=== PATIENT | female | born 1960 | race Caucasian/White ===

== ENCOUNTER 2017-04-29 03:13 | Emergency (ER) | payer MEDICAID, SELFPAY ==
[2017-04-29 03:14] VITALS: BP 137/78; PULSE 79; RESP 12; TEMP 36.8; O2SAT 100; BMI 21.1
--- NOTE | 2017-04-29 03:27 | RAD_ITS ---
STUDY: X-RAY - CERVICAL SPINE REASON FOR EXAM: Female, 56 years old. Fall. Neck pain TECHNIQUE: 4 view(s) of the cervical spine were obtained. COMPARISON: None FINDINGS: Normal anterior atlantoaxial articulation. Normal odontoid process. Normal cervical lordosis. There is multi-level endplate spondylosis. There is multi-level degenerative disc disease with multilevel disc space narrowing. The soft tissue structures are unremarkable. RAD/Cerv Spine 2 or 3 Views IMPRESSION: There is multi-level endplate spondylosis. There is multi-level degenerative disc disease with multilevel disc space narrowing. Electronically Signed: Maxwell Lucero MD at 4:04 EST Tel , Service support ,
[2017-04-29] MEDS: Acetaminophen 325 MG Tablet 650 MG PO (03:43)
--- NOTE | 2017-04-29 04:09 | ED.VISSUMM ---
- ER Visit Summary Date of Service: 04/29/17 Chief Complaint: [] Head and neck injury History of Present Illness: The patient is a 56 F she stated she sleepwalks and was sleepwalking this evening and fell onto the closet door. She fell onto the ground. She struck her head on the door and of the ground. She has some soreness in her sides of her neck. No home treatment. Brought in by paramedics. No headache. Current severity mild. Physical Examination: [] Vital signs reviewed General: Well-nourished well-developed Head: Normocephalic atraumatic. Right forehead with a superficial abrasion. Hematoma or contusion Eyes: Pupils equal round and reactive to light extraocular movements intact ENT: TMs clear no hemotympanum no trauma Neck: No midline tenderness. Positive paraspinal tenderness. C-collared Cardiovascular: Regular rate rhythm no murmurs normal S1-S2 Respiratory: No distress clear to auscultation bilaterally chest nontender Abdomen: Soft nontender nondistended normal bowel sounds no masses Back: Nontender no CVA tenderness Extremities: Nontender active range of motion ?4 extremities no trauma Skin: Normal color no trauma Neuro alert oriented cranial nerves II through XII intact normal strength sensation reflexes Test Results: [] Emergency Department Course and Treatment: [] X-ray cervical shows nothing acute. She given Tylenol. Her abrasion this is superficial. No sutures needed. Patient will follow-up as an outpatient continue NSAIDs Treatment Plan: [] Disposition: [] Impression: [] Neck strain Head abrasion This note was generated with [employer] dictation software. It may contain incorrect words, spelling, and punctuation that were not noted in review of the chart prior to signing ED Disposition - Plan for ED Patient: Chief Complaint: Fall Referrals: Keven Willams MD [Primary Care Provider] -
--- NOTE | 2017-04-29 04:11 | ED.DEP ---
ED Disposition - Plan for ED Patient: Disposition: Home or Assisted Living Chief Complaint: Fall Instructions: ED Sprain Strain Neck Referrals: Keven Willams MD [Primary Care Provider] -
[2017-04-29 04:16] VITALS: BP 138/81; PULSE 76; O2SAT 98
== END 2017-04-29 04:27 | disposition home or self-care (01) ==
PROVIDERS: Emergency Provider Emergency Medicine; Family Provider Family Medicine; PCP Family Medicine
DX: S16.1XXA Strain of muscle, fascia and tendon at neck level, initial encounter (principal); S00.81XA Abrasion of other part of head, initial encounter; K21.9 Gastro-esophageal reflux disease without esophagitis; F41.9 Anxiety disorder, unspecified; F32.9 Major depressive disorder, single episode, unspecified; Z79.899 Other long term (current) drug therapy; W18.30XA Fall on same level, unspecified, initial encounter; Y93.01 Activity, walking, marching and hiking; Y92.009 Unspecified place in unspecified non-institutional (private) residence as the place of occurrence of the external cause; Y99.8 Other external cause status
CPT/HCPCS: 72040; 99284

== ENCOUNTER 2017-06-07 07:52 | Emergency (ER) | payer MEDICAID, SELFPAY ==
[2017-06-07 07:52] VITALS: BP 130/88; PULSE 78; RESP 18; TEMP 36.6; O2SAT 100; BMI 20.5
--- NOTE | 2017-06-07 08:07 | CT_ITS ---
STUDY: CT ABDOMEN AND PELVIS WITHOUT CONTRAST REASON FOR EXAM: Female, 56 years old. Left lower quadrant abdominal pain with nausea vomiting and diarrhea. RADIATION DOSAGE (If Supplied By Facility): CTDIvol = ( 6.22 ) mGy, DLP = ( 312.43 ) mGycm TECHNIQUE: Transaxial images were obtained from the dome of the diaphragm to the symphysis pubis without oral contrast, and without intravenous contrast. Sagittal and coronal images were reconstructed. Individualized dose optimization techniques were used for this CT. COMPARISON: Comparison is made with prior examination dated July 03, 2016. FINDINGS: Mild degree of the nodular pleural thickening at the lung bases. The visualized portions of the heart are within normal limits. Normal liver. There are surgical clips in the gallbladder fossa consistent with a prior cholecystectomy. Borderline splenomegaly. Normal pancreas. Normal bilateral adrenal glands. Mild degree of right hydronephrosis and right hydroureter. No obstructive calculus is seen at this time. Moderate atrophy of the left kidney. Moderate sized hiatal hernia. Normal small intestine. There are multiple colonic diverticula consistent with diverticulosis. The appendix is visualized and appears normal. There is scattered atherosclerotic calcification of the abdominal aorta, without a demonstrated aneurysm. Normal inferior vena cava. Normal retroperitoneum. Normal urinary bladder. There is a small umbilical hernia containing fat. Normal osseous structures. CT/Abdomen/Pelvis without Cont IMPRESSION: Moderate sized hiatal hernia. Atrophy of the left kidney. Right hydronephrosis and hydroureter without an obstructive calculus seen. Sigmoid diverticulosis. Electronically Signed: Gerhard Riggs MD at 9:31 EDT Tel [phone], Service support ,
--- NOTE | 2017-06-07 08:08 | ED.VISSUMM ---
- ER Visit Summary Date of Service: 06/07/17 Chief Complaint: Abdominal pain History of Present Illness: The patient is a [address] Willams. She reports that she has left lower quadrant pain that began yesterday. It is a sharp, cramping pain that is 10 out of 10 in severity. States it is worsened by nothing and minimally relieved by a position. She is vomited twice. No blood in her emesis. She has had 3 episodes of diarrhea. No blood in her stools or black tarry stools. She reports this is similar to when she has had diverticulitis in the past. Patient denies sick contacts. Has not been camping out of the country. No possible bad food exposure. Does drink well water, but others at home due as well and they are not ill. No recent antibiotic use. Physical Examination: Vitals: Stable. Afebrile. General: Well-nourished and well-developed. Head: Normocephalic atraumatic. Neck: Supple, no lymphadenopathy. No JVD. Nontender. Cardiovascular: Regular rate and rhythm. No murmurs. Respiratory: No respiratory distress. Clear to auscultation bilaterally. Abdominal: Soft, moderate tenderness to palpation of the left lower quadrant, nondistended, normal bowel sounds. No guarding, rebound, or peritoneal signs. Back: Nontender. No CVA tenderness. Extremities: Nontender, no edema. Skin: Normal color, no rash. Neurologic: Alert and oriented ?3. Cranial nerves II through XII are intact. Normal strength and sensation. Psych: Normal affect. Test Results: CBC is remarkable for an H&H of 11.0 and 35.5. Chem-7 is more for chloride of 112, BUN of 19, creatinine 1.13. CT flank shows diverticulosis without diverticulitis. There is mild degree right hydro-nephrosis/hydroureter without calculus. Moderate atrophy of the left kidney. Normal appendix. Urine shows 10-25 white blood cells and 1+ bacteria. Emergency Department Course and Treatment: Patient had an IV placed. She was given morphine and Zofran IV. She is resting comfortably. She was given Macrobid p.o. Treatment Plan: Patient will be discharged with Cinthya bed, [place]illian, naproxen, and Zofran. Instructed to follow-up with Dr. Willams in 1-2 days if not improving. Return to the emergency department for any worsening symptoms. Disposition: To home in improved and stable condition. Impression: 1. UTI. This note was generated with [employer] dictation software. It may contain incorrect words, spelling, and punctuation that were not noted in review of the chart prior to signing ED Disposition - Plan for ED Patient: Chief Complaint: Abd Pain Instructions: ED Abdominal Pain Unkn Cause Prescriptions: Hydrocodone Bitart/Apap 5-325 [[place] 5/325] 1 - 2 tablet PO Q4H PRN PRN 3 Days #12 tablet PRN Reason: Pain Ondansetron [Zofran Odt] 4 mg PO Q8H PRN PRN #10 tablet PRN Reason: Nausea Nitrofurantoin Macrocrystals [Macrobid] 100 mg PO Q12 #14 capsule Naproxen [Naprosyn] 500 mg PO BID #20 tablet Referrals: Keven Willams MD [Primary Care Provider] - 1-2 Days if not improving
--- NOTE | 2017-06-07 08:25 | ED.DCSUM_ITS ---
- ER Visit Summary Date of Service: 06/07/17 Chief Complaint: Abdominal pain History of Present Illness: The patient is a [address] Willams. She reports that she has left lower quadrant pain that began yesterday. It is a sharp, cramping pain that is 10 out of 10 in severity. States it is worsened by nothing and minimally relieved by a position. She is vomited twice. No blood in her emesis. She has had 3 episodes of diarrhea. No blood in her stools or black tarry stools. She reports this is similar to when she has had diverticulitis in the past. Patient denies sick contacts. Has not been camping out of the country. No possible bad food exposure. Does drink well water, but others at home due as well and they are not ill. No recent antibiotic use. Physical Examination: Vitals: Stable. Afebrile. General: Well-nourished and well-developed. Head: Normocephalic atraumatic. Neck: Supple, no lymphadenopathy. No JVD. Nontender. Cardiovascular: Regular rate and rhythm. No murmurs. Respiratory: No respiratory distress. Clear to auscultation bilaterally. Abdominal: Soft, moderate tenderness to palpation of the left lower quadrant, nondistended, normal bowel sounds. No guarding, rebound, or peritoneal signs. Back: Nontender. No CVA tenderness. Extremities: Nontender, no edema. Skin: Normal color, no rash. Neurologic: Alert and oriented ?3. Cranial nerves II through XII are intact. Normal strength and sensation. Psych: Normal affect. Test Results: CBC is remarkable for an H&H of 11.0 and 35.5. Chem-7 is more for chloride of 112, BUN of 19, creatinine 1.13. CT flank shows diverticulosis without diverticulitis. There is mild degree right hydro-nephrosis/hydroureter without calculus. Moderate atrophy of the left kidney. Normal appendix. Urine shows 10-25 white blood cells and 1+ bacteria. Emergency Department Course and Treatment: Patient had an IV placed. She was given morphine and Zofran IV. She is resting comfortably. She was given Macrobid p.o. Treatment Plan: Patient will be discharged with Cinthya bed, [place], naproxen, and Zofran. Instructed to follow-up with Dr. Willams in 1-2 days if not improving. Return to the emergency department for any worsening symptoms. Disposition: To home in improved and stable condition. Impression: 1. UTI. This note was generated with [employer] dictation software. It may contain incorrect words, spelling, and punctuation that were not noted in review of the chart prior to signing ED Disposition - Plan for ED Patient: Chief Complaint: Abd Pain Instructions: ED Abdominal Pain Unkn Cause Prescriptions: Hydrocodone Bitart/Apap 5-325 [[place] 5/325] 1 - 2 tablet PO Q4H PRN PRN 3 Days # 12 tablet PRN Reason: Pain Ondansetron [Zofran Odt] 4 mg PO Q8H PRN PRN #10 tablet PRN Reason: Nausea Nitrofurantoin Macrocrystals [Macrobid] 100 mg PO Q12 #14 capsule Naproxen [Naprosyn] 500 mg PO BID #20 tablet Referrals: Keven Willams MD [Primary Care Provider] - 1-2 Days if not improving
[2017-06-07] MEDS: 0.9% Normal Saline 1,000 ML 1000 ML IV (08:36)
[2017-06-07] MEDS: Ondansetron 4 MG/2 ML Vial IV (08:36)
[2017-06-07 08:38] LABS: Absolute Lymphocyte Count 2.15 X10^3/ul (0.83-4.51); Absolute Neutrophil Count 2.9 X10^3/uL (2.0-7.7); Basophil# 0.03 X10^3/uL; Basophil% 0.5 % (0-1); Eosinophil# 0.24 X10^3/uL; Eosinophils% 4.1 % (0-5); Hematocrit 35.5 % (37-47); Lymphocyte # 2.15 X10^3/ul (4.0); Lymphocyte % 36.9 % (19-41); Mean Corpuscular Hgb 24.5 pg (27.0-32.0); Mean Corpuscular Volume 79.1 fL (81-99); Mean Platelet Vol. 9.5 fl (6.2-12.0); Monocyte# 0.47 X10^3/uL; Monocyte% 8.1 % (0-10); Neutrophil # 2.93 X10^3/uL (2.7-7.7); Neutrophil % 50.4 % (47-70); Platelet Count 178 K/mm3 (150-450); RBC Distribution Width CV 14.4 % (11.6-14.6); RBC Distribution Width SD 41.8 fl (35.1-43.9); Red Blood Count 4.49 M/mm3 (4.2-5.4); White Blood Count 5.8 K/mm3 (4.4-11.0)
[2017-06-07 08:39] LABS: POSITIVE COUNT NO; POSITIVE DIFFERENTIAL NO; POSITIVE MORPHOLOGY NO
[2017-06-07 08:51] LABS: Anion Gap 6 (5-15); BUN 19 mg/dL (7-18); BUN/Creat Ratio 16.8 RATIO (10-20); Calcium,Total 8.6 mg/dL (8.5-10.1); Chloride 112 mmol/L (98-107); Creatinine, Serum 1.13 mg/dL (0.55-1.02); EST Glomerular Filtration Rate 53 mL/min (>60); Est Glom Filt Rate - Afr Amer 64 mL/min (>60); Estimated Creatinine Clearance 49.95 ml/min; Glucose 80 mg/dL (74-106); Sodium Level 142 mmol/L (136-145)
[2017-06-07 10:19] LABS: Mucous, Urine 0 SEEN /hpf (<or=2+); Red Blood Cells-Urine 0 SEEN /hpf (0-5)
[2017-06-07 10:25] LABS: Color, Urine Yellow (Yellow); Glucose, Dipstick Normal (Normal); Ketone-Dipstick Negative (Negative); Leukocyte Esterase-Dipstick 100 /ul (Negative); Nitrite-Dipstick Negative (Negative); Occult Blood-Urine Negative /ul (Negative); Protein-Dipstick Negative (Negative); Urine Bilirubin Dipstick Negative (Negative); Urine Clarity Sl. Cloudy (Clear); Urine Urobilinogen Normal (Normal); Urine pH 6.5 (5.0 - 8.0)
[2017-06-07 10:31] LABS: Bacteria 1+ /hpf (None Seen); Squamous Epithelial Cells - UA 0-5 SEEN /hpf (5-10); White Blood Cells 10-25 SEEN /hpf (0-5)
[2017-06-07] MEDS: 0.9% Normal Saline 1,000 ML 999 ML IV (10:38)
[2017-06-07 10:39] VITALS: BP 109/74; PULSE 73; RESP 14; O2SAT 96
[2017-06-07 10:40] VITALS: BP 105/75; BP 109/74; BP 111/78; PULSE 65; PULSE 66; PULSE 67
[2017-06-07] MEDS: Nitrofurantoin Macrocrystals 100 MG Capsule PO (10:53)
[2017-06-07 11:41] VITALS: BP 119/79; PULSE 78; RESP 14; TEMP 36.6; O2SAT 100
== END 2017-06-07 11:46 | disposition home or self-care (01) ==
LOC: ED 08:19
PROVIDERS: Emergency Provider Emergency Medicine; Family Provider Family Medicine; PCP Family Medicine
DX: N39.0 Urinary tract infection, site not specified (principal); K57.90 Diverticulosis of intestine, part unspecified, without perforation or abscess without bleeding; N13.30 Unspecified hydronephrosis; N13.4 Hydroureter; N26.1 Atrophy of kidney (terminal); Z87.442 Personal history of urinary calculi; Z79.899 Other long term (current) drug therapy
CPT/HCPCS: 74176; 80048; 81001; 85025; 96361; 96374; 96375; 99284; J7030; A4216; J2405

== ENCOUNTER 2017-07-30 20:07 | Emergency (ER) | payer MEDICAID, SELFPAY ==
[2017-07-30 20:08] VITALS: BP 128/76; PULSE 69; RESP 15; TEMP 36.6; BMI 20.5
--- NOTE | 2017-07-30 20:15 | RAD_ITS ---
STUDY: X-RAY - LEFT WRIST REASON FOR EXAM: Female, 56 years old. Falling injury of the left wrist. TECHNIQUE: 3 view(s) of the wrist were obtained. COMPARISON: None. FINDINGS: Demineralized osseous structures without a fracture of the distal radius or ulna. Normal radiocarpal articulation. Normal distal radioulnar articulation. Normal carpal bones. Normal carpal articulations. Normal carpometacarpal articulation of the thumb. Normal second through fifth carpometacarpal articulations. Normal visualized metacarpal bones. The soft tissue structures are unremarkable. RAD/Wrist min 3 Views IMPRESSION: Negative for acute fracture or dislocation. Electronically Signed: Haylie Peoples MD at 20:34 EDT , Service support ,
[2017-07-30 20:45] VITALS: O2SAT 97
--- NOTE | 2017-07-30 21:34 | CT_ITS ---
STUDY: CT BRAIN WITHOUT CONTRAST REASON FOR EXAM: Female, 56 years old. Falling injury of the head. Slipped and hit the back of the head. RADIATION DOSAGE (If Supplied By Facility): CTDIvol = ( 44.99 ) mGy, DLP = ( 748.30 ) mGycm TECHNIQUE: Transaxial CT imaging of the brain was performed without administration of intravenous contrast material. Individualized dose optimization techniques were used for this CT. COMPARISON: Prior head CT exam of April 07, 2009 FINDINGS: Normal soft tissue structures. Normal calvarium. Normal size ventricles and extra-axial spaces for the patient's age. There are areas of decreased attenuation within the white matter tracts of the supratentorial brain, consistent with microvascular disease changes. Normal basal ganglia and thalami. Normal brainstem. Normal cerebellum. There is no intracranial hemorrhage. There are no findings of an acute ischemic infarction. Normal visualized paranasal sinuses. CT/Brain/Head without Contrast IMPRESSION: No acute intracranial findings or changes. Negative for hemorrhage, hematoma or mass density. Chronic small vessel ischemic changes somewhat increased from the prior exam. Negative for skull fracture. Electronically Signed: Haylie Peoples MD at 22:16 EDT , Service support ,
--- NOTE | 2017-07-30 21:34 | CT_ITS ---
STUDY: CT CERVICAL SPINE WITHOUT CONTRAST REASON FOR EXAM: Female, 56 years old. Neck pain after falling injury. RADIATION DOSAGE (If Supplied By Facility): CTDIvol = ( 16.16 ) mGy, DLP = ( 338.04 ) mGycm TECHNIQUE: High resolution transaxial imaging was performed without contrast material. Sagittal and coronal images were reconstructed. Individualized dose optimization techniques were used for this CT. COMPARISON: Prior cervical spine films of April 29, 2017 FINDINGS: Normal craniovertebral junction. Normal anterior atlantoaxial articulation. Normal odontoid process. Normal cervical lordosis. Normal vertebral bodies and posterior osseous elements. C2-3: Normal endplates. Normal disc height and morphology. Normal central canal and intervertebral neuroforamina. C3-4: Minimal degenerative disc and joint changes without central stenosis or substantial foraminal narrowing. C4-5: Degenerative disc narrowing with mild spondylitic endplate changes and uncovertebral hypertrophy. Normal bilateral facet articulations. Negative for central stenosis. Negative for substantial foraminal narrowing. C5-6: Disc narrowing and mild uncovertebral arthrosis. Normal facet articulations. Negative for central stenosis. Bilateral moderate foraminal narrowing. C6-7: Mild degenerative disc and joint changes without central stenosis or substantial foraminal narrowing. C7-T1: Normal endplates. Normal disc height and morphology. Normal central canal and intervertebral neuroforamina. Normal visualized soft tissue structures. CT/Spine Cervical without Contras IMPRESSION: Normal alignment of the cervical spine without a fracture deformity. Degenerative disc and joint changes as stated above. Electronically Signed: Haylie Peoples MD at 22:14 EDT , Service support ,
--- NOTE | 2017-07-30 21:45 | RAD_ITS ---
STUDY: X-RAY - PELVIS REASON FOR EXAM: Female, 56 years old. Pain after falling. TECHNIQUE: One view of the pelvis was obtained. COMPARISON: None. FINDINGS: There is a non-specific bowel gas pattern. Normal visualized soft tissue structures. Normal bilateral iliac wings, sacroiliac joints and visualized sacrum. Normal visualized bilateral superior and inferior pubic rami. Normal pubic symphysis. Normal ischial tuberosities. Normal visualized right femoral head. Normal right acetabulum. Normal right hip joint. Normal visualized left femoral head. Normal left acetabulum. Normal left hip joint. RAD/Pelvis 1 or 2 Views IMPRESSION: Normal x-ray examination of the pelvis. Electronically Signed: Haylie Peoples MD at 22:47 EDT , Service support ,
--- NOTE | 2017-07-30 22:31 | ED.VISSUMM ---
- ER Visit Summary Date of Service: 07/30/17 Chief Complaint: [Fall] History of Present Illness: The patient is a 56 F [presents to the emergency department after sustaining a fall today. Patient was on a step stool when she fell landing on her left wrist. Patient did hit her head but no loss of consciousness. Patient complains of pain in her neck as well as her left groin. Patient denies any chest pain or abdominal pain. Patient has been ambulatory since her fall. Patient is not on any blood thinners.] Physical Examination: [HEENT-PERRLA, EOMI. Cranial nerves II through XII grossly intact. TMs clear. Mucous membranes moist. No adenopathy. Patient has diffuse tenderness palpation over the C-spine and cervical paraspinal musculature. No bony step-offs noted. Cardiovascular-regular rate and rhythm without murmur or ectopy Lungs-clear to auscultation, chest wall stable without crepitus or subcu emphysema Abdomen-normoactive bowel sounds, soft, nontender, no rebound or rigidity, no peritoneal signs. Back exam-no tenderness over the thoracic or lumbar spine. Extremities-intact ?4, normal range of motion, normal pulses. Left wrist-patient has some superficial abrasions noted to the dorsum of the left wrist. There is no deformity to the wrist or significant soft tissue swelling noted. She is nervously intact distally. Patient has some pain with range of motion flexion extension of the wrist. Patient also has tenderness over the left groin. Negative straight leg raising no pain with logrolling of the left hip. There is no shortening or external rotation of the left lower extremity. Test Results: [CT scan of the brain without contrast showed nothing acute. CT scan of the cervical spine showed no fractures and only degenerative changes. X-rays of the left wrist show no fractures and x-rays of the pelvis showed no fractures Emergency Department Course and Treatment: [Patient will be given a left wrist splint] Treatment Plan: [Patient given a prescription for 12 [place] for pain and advised to follow-up with her primary care physician within next 5-7 days] Disposition: [Discharged home in stable condition] Impression: [Mechanical fall Closed head injury Cervical strain Left wrist sprain Left groin strain] This note was generated with [employer] software. It may contain incorrect words, spelling, and punctuation that were not noted in review of the chart prior to signing ED Disposition - Plan for ED Patient: Chief Complaint: Fall Referrals: Carol Gonzalez PA [Primary Care Provider] -
--- NOTE | 2017-07-30 22:34 | ED.DCSUM_ITS ---
- ER Visit Summary Date of Service: 07/30/17 Chief Complaint: [Fall] History of Present Illness: The patient is a 56 F [presents to the emergency department after sustaining a fall today. Patient was on a step stool when she fell landing on her left wrist. Patient did hit her head but no loss of consciousness. Patient complains of pain in her neck as well as her left groin. Patient denies any chest pain or abdominal pain. Patient has been ambulatory since her fall. Patient is not on any blood thinners.] Physical Examination: [HEENT-PERRLA, EOMI. Cranial nerves II through XII grossly intact. TMs clear. Mucous membranes moist. No adenopathy. Patient has diffuse tenderness palpation over the C-spine and cervical paraspinal musculature. No bony step-offs noted. Cardiovascular-regular rate and rhythm without murmur or ectopy Lungs-clear to auscultation, chest wall stable without crepitus or subcu emphysema Abdomen-normoactive bowel sounds, soft, nontender, no rebound or rigidity, no peritoneal signs. Back exam-no tenderness over the thoracic or lumbar spine. Extremities-intact ?4, normal range of motion, normal pulses. Left wrist- patient has some superficial abrasions noted to the dorsum of the left wrist. There is no deformity to the wrist or significant soft tissue swelling noted. She is nervously intact distally. Patient has some pain with range of motion flexion extension of the wrist. Patient also has tenderness over the left groin. Negative straight leg raising no pain with logrolling of the left hip. There is no shortening or external rotation of the left lower extremity. Test Results: [CT scan of the brain without contrast showed nothing acute. CT scan of the cervical spine showed no fractures and only degenerative changes. X -rays of the left wrist show no fractures and x-rays of the pelvis showed no fractures Emergency Department Course and Treatment: [Patient will be given a left wrist splint] Treatment Plan: [Patient given a prescription for 12 [place] for pain and advised to follow-up with her primary care physician within next 5-7 days] Disposition: [Discharged home in stable condition] Impression: [Mechanical fall Closed head injury Cervical strain Left wrist sprain Left groin strain] This note was generated with [employer] software. It may contain incorrect words, spelling, and punctuation that were not noted in review of the chart prior to signing ED Disposition - Plan for ED Patient: Chief Complaint: Fall Referrals: Carol Gonzalez PA [Primary Care Provider] -
--- NOTE | 2017-07-30 22:34 | ED.DEP ---
ED Disposition - Plan for ED Patient: Chief Complaint: Fall Instructions: ED Mechanical Fall, ED Head Injury Closed, ED Sprain Strain Neck, ED Sprain Wrist, ED Strain Groin Prescriptions: Hydrocodone/Acetaminophen [[place] 5-325 Tablet] 1 - 2 ea PO 4X/DAY PRN PRN 3 Days #12 tab PRN Reason: Pain Referrals: Carol Gonzalez PA [Primary Care Provider] - 5-7 Days
[2017-07-30] MEDS: HYDROcodone Bitartrate/Apap 5/325 Tablet PO ×2 (22:48)
[2017-07-30 22:57] VITALS: BP 142/82; PULSE 61; RESP 18; O2SAT 99
== END 2017-07-30 22:58 | disposition home or self-care (01) ==
PROVIDERS: Emergency Provider Emergency Medicine; Family Provider Physician Assistant; PCP Physician Assistant
DX: S16.1XXA Strain of muscle, fascia and tendon at neck level, initial encounter (principal); S39.011A Strain of muscle, fascia and tendon of abdomen, initial encounter; S63.502A Unspecified sprain of left wrist, initial encounter; S09.90XA Unspecified injury of head, initial encounter; K21.9 Gastro-esophageal reflux disease without esophagitis; Z79.899 Other long term (current) drug therapy; W07.XXXA Fall from chair, initial encounter; Y93.9 Activity, unspecified; Y92.009 Unspecified place in unspecified non-institutional (private) residence as the place of occurrence of the external cause; Y99.8 Other external cause status
CPT/HCPCS: 70450; 72125; 72170; 73110; 99283

== ENCOUNTER 2017-09-06 21:02 | Emergency (ER) | payer MEDICAID, SELFPAY ==
--- NOTE | 2017-09-06 21:02 | DT_ITS ---
This patient was seen during an EMR downtime August 30, 2017 - September 06, 2017. This patient may have a combination of paper and electronic documentation or all paper documentation. All documentation is viewable within the e-chart portion of [employer] for each patient visit.
[2017-09-06 21:03] VITALS: BP 104/74; PULSE 95; RESP 16; TEMP 36.4; O2SAT 98; BMI 21.6
--- NOTE | 2017-09-06 21:46 | CT_ITS ---
STUDY: CT ABDOMEN AND PELVIS WITHOUT CONTRAST REASON FOR EXAM: Female, 56 years old. Left lower quadrant pain RADIATION DOSAGE (If Supplied By Facility): CTDIvol = ( 6.25 ) mGy, DLP = ( 281.22 ) mGycm TECHNIQUE: Transaxial images were obtained from the dome of the diaphragm to the symphysis pubis without oral contrast, and without intravenous contrast. Sagittal and coronal images were reconstructed. Individualized dose optimization techniques were used for this CT. COMPARISON: None. FINDINGS: Bibasilar atelectasis. The visualized portions of the heart are within normal limits. Normal liver. Gallbladder is surgically absent. Mild prominence of the central intrahepatic biliary ducts, consistent with postcholecystectomy change. Normal spleen. Normal pancreas. Normal bilateral adrenal glands. There is mild right-sided hydronephrosis and hydroureter without obstructing calculus, unchanged from prior imaging. Left kidney is atrophic. Left ureter is normal. There is a moderate-sized hiatal hernia. The stomach is otherwise unremarkable. Normal small intestine. Mild distal descending colonic diverticulosis with no focal inflammation. The appendix is visualized and appears normal. Normal abdominal aorta. Normal inferior vena cava. Normal retroperitoneum. Normal urinary bladder. Uterus and bilateral adnexa are unremarkable. Normal abdominal wall. Normal osseous structures. CT/Abdomen/Pel W ORAL Cont Only IMPRESSION: 1. No evidence of an acute intra-abdominal abnormality. 2. Mild distal descending colonic diverticulosis with no CT evidence of acute diverticulitis. 3. Mild chronic right-sided hydroureter nephrosis without obstructing calculus. 4. Left renal atrophy. 5. Moderate-sized hiatal hernia. Electronically Signed: Tejas Johansen MD at 0:30 EDT Tel , Service support ,
[2017-09-06] MEDS: Morphine 2 MG/ML Syringe IV (21:52)
[2017-09-06] MEDS: Ondansetron 4 MG/2 ML Vial IV (21:53)
[2017-09-06] MEDS: 0.9% Normal Saline 1,000 ML 150 ML IV (21:53)
[2017-09-06 22:12] LABS: Mucous, Urine 0 SEEN /hpf (<or=2+); Red Blood Cells-Urine 0 SEEN /hpf (0-5)
[2017-09-06 22:16] LABS: Absolute Lymphocyte Count 1.47 X10^3/ul (0.83-4.51); Absolute Neutrophil Count 3.2 X10^3/uL (2.0-7.7); Basophil# 0.03 X10^3/uL; Basophil% 0.6 % (0-1); Eosinophil# 0.04 X10^3/uL; Eosinophils% 0.8 % (0-5); Hemoglobin 10.9 g/dl (12.0-15.0); Lymphocyte # 1.47 X10^3/ul (4.0); Lymphocyte % 28.7 % (19-41); Mean Corp Hgb Conc 31.1 g/gl (32-36); Mean Corpuscular Hgb 24.3 pg (27.0-32.0); Mean Platelet Vol. 10.3 fl (6.2-12.0); Monocyte# 0.43 X10^3/uL; Monocyte% 8.4 % (0-10); Neutrophil # 3.15 X10^3/uL (2.7-7.7); Neutrophil % 61.5 % (47-70); Platelet Count 215 K/mm3 (150-450); RBC Distribution Width CV 13.7 % (11.6-14.6); RBC Distribution Width SD 38.7 fl (35.1-43.9); Red Blood Count 4.49 M/mm3 (4.2-5.4); White Blood Count 5.1 K/mm3 (4.4-11.0)
[2017-09-06 22:18] LABS: POSITIVE COUNT NO; POSITIVE DIFFERENTIAL NO; POSITIVE MORPHOLOGY NO
[2017-09-06 22:25] LABS: Color, Urine Yellow (Yellow); Glucose, Dipstick Normal (Normal); Ketone-Dipstick Negative (Negative); Leukocyte Esterase-Dipstick 500 /ul (Negative); Nitrite-Dipstick Negative (Negative); Occult Blood-Urine Negative /ul (Negative); Protein-Dipstick Negative (Negative); Specific Gravity, Urine 1.015 (1.002-1.030); Urine Bilirubin Dipstick Negative (Negative); Urine Clarity Cloudy (Clear); Urine Urobilinogen Normal (Normal)
[2017-09-06 22:39] LABS: Anion Gap 7 (5-15); BUN 19 mg/dL (7-18); Calcium,Total 8.3 mg/dL (8.5-10.1); Chloride 111 mmol/L (98-107); Creatinine, Serum 1.27 mg/dL (0.55-1.02); EST Glomerular Filtration Rate 46 mL/min (>60); Est Glom Filt Rate - Afr Amer 56 mL/min (>60); Glucose 85 mg/dL (74-106); Potassium 4.1 mmol/L (3.5-5.1); Sodium Level 144 mmol/L (136-145)
[2017-09-06 22:44] LABS: Squamous Epithelial Cells - UA 0-5 SEEN /hpf (5-10)
[2017-09-06 22:45] LABS: Bacteria 4+ /hpf (None Seen); Transitional Epithelial - Ur 0-5 SEEN /hpf (0-5); White Blood Cells 0-5 SEEN /hpf (0-5)
--- NOTE | 2017-09-06 23:31 | ED.VISSUMM ---
- ER Visit Summary Date of Service: 09/06/17 Chief Complaint: Left lower quadrant abdominal pain History of Present Illness: The patient is a 56 F reports left lower quadrant abdominal pain that started yesterday. Is been waxing and waning. She describes an aching sensation. She has had some nausea but no vomiting. She feels constipated. Last bowel movement was either yesterday or the day prior. She states she normally goes every day. She has had some chills but no fever. Past history significant for diverticulitis, kidney failure, anxiety, and depression. She has had prior cholecystectomy. Physical Examination: Vital signs are unremarkable. Patient is afebrile. Head and neck examination is unremarkable. Heart is regular rate and rhythm. Lung sounds are clear. Abdomen is soft with tenderness in the left lower quadrant. No guarding or rebound. Hypoactive bowel sounds are present. Back examination reveals no CVA tenderness. Test Results: CBC was normal white count. Hemoglobin is 10.9. Chemistry studies reveal BUN of 19 and a creatinine 1.27. Urinalysis shows 4+ bacteria but 0-5 white cells and 0-[address] scan of the abdomen pelvis with p.o. contrast reveals no evidence of acute abnormality. There is a mild descending distal colonic diverticulosis with no evidence of diverticulitis. There is a moderate sized hiatal hernia. Emergency Department Course and Treatment: Patient is given a small dose of morphine along with Zofran and IV fluids. On repeat evaluation patient is resting comfortably. She has no urinary symptoms. Her urine will be sent for culture but we will not treat with antibiotics at this time. Patient will continue to monitor her symptoms. She is encouraged to return if symptoms worsen or she has any other concerns. Treatment Plan: [] Disposition: Discharge Impression: Left lower quadrant pain Bacteriuria This note was generated with [employer] dictation software. It may contain incorrect words, spelling, and punctuation that were not noted in review of the chart prior to signing ED Disposition - Plan for ED Patient: Chief Complaint: Abd Pain Referrals: Carol Gonzalez PA [Primary Care Provider] -
[2017-09-07 00:18] VITALS: BP 104/65; PULSE 71; RESP 16; O2SAT 99
--- NOTE | 2017-09-07 00:41 | ED.DEP ---
ED Disposition - Plan for ED Patient: Disposition: Home or Assisted Living Chief Complaint: Abd Pain Instructions: ED Abdominal Pain Unkn Cause Referrals: Carol Gonzalez PA [Primary Care Provider] - 3-5 Days
== END 2017-09-07 00:45 | disposition home or self-care (01) ==
PROVIDERS: Emergency Provider Emergency Medicine; Family Provider Physician Assistant; PCP Physician Assistant
DX: R82.71 Bacteriuria (principal); R10.32 Left lower quadrant pain; N18.9 Chronic kidney disease, unspecified; K57.92 Diverticulitis of intestine, part unspecified, without perforation or abscess without bleeding; F41.9 Anxiety disorder, unspecified; F32.9 Major depressive disorder, single episode, unspecified; Z79.899 Other long term (current) drug therapy
CPT/HCPCS: 74176; 80048; 81001; 85025; 87077; 87086; 87088; 87186; 96361; 96374; 96375; 99283; J7030; A4216; J2405

== ENCOUNTER 2017-10-02 20:07 | Emergency (ER) | payer MEDICAID, SELFPAY ==
[2017-10-02 20:08] VITALS: BP 110/73; PULSE 75; RESP 16; TEMP 36.9; O2SAT 99; BMI 20.8
[2017-10-02 20:31] LABS: Bacteria 0 SEEN /hpf (None Seen); Mucous, Urine 0 SEEN /hpf (<or=2+); Red Blood Cells-Urine 0 SEEN /hpf (0-5)
[2017-10-02 20:32] LABS: Color, Urine Yellow (Yellow); Glucose, Dipstick Normal (Normal); Ketone-Dipstick Negative (Negative); Leukocyte Esterase-Dipstick 500 /ul (Negative); Nitrite-Dipstick Negative (Negative); Occult Blood-Urine Negative /ul (Negative); Protein-Dipstick Negative (Negative); Urine Bilirubin Dipstick Negative (Negative); Urine Clarity Clear (Clear); Urine Urobilinogen Normal (Normal); Urine pH 6.5 (5.0 - 8.0)
[2017-10-02 20:33] LABS: Absolute Lymphocyte Count 1.76 X10^3/ul (0.83-4.51); Absolute Neutrophil Count 4.8 X10^3/uL (2.0-7.7); Basophil# 0.03 X10^3/uL; Basophil% 0.4 % (0-1); Eosinophil# 0.05 X10^3/uL; Eosinophils% 0.7 % (0-5); Hematocrit 36.2 % (37-47); Hemoglobin 11.4 g/dl (12.0-15.0); Lymphocyte # 1.76 X10^3/ul (4.0); Lymphocyte % 24.6 % (19-41); Mean Corp Hgb Conc 31.5 g/gl (32-36); Mean Corpuscular Hgb 24.4 pg (27.0-32.0); Mean Corpuscular Volume 77.4 fL (81-99); Mean Platelet Vol. 10.6 fl (6.2-12.0); Monocyte# 0.46 X10^3/uL; Monocyte% 6.4 % (0-10); Neutrophil # 4.83 X10^3/uL (2.7-7.7); Neutrophil % 67.8 % (47-70); Platelet Count 218 K/mm3 (150-450); RBC Distribution Width CV 13.5 % (11.6-14.6); RBC Distribution Width SD 37.4 fl (35.1-43.9); Red Blood Count 4.68 M/mm3 (4.2-5.4); White Blood Count 7.1 K/mm3 (4.4-11.0)
[2017-10-02] MEDS: Ondansetron 4 MG/2 ML Vial IV (20:33)
[2017-10-02] MEDS: Morphine 4 MG/ML Syringe IV (20:33)
[2017-10-02] MEDS: 0.9% Normal Saline 1,000 ML 1000 ML IV (20:33)
[2017-10-02 20:34] LABS: POSITIVE COUNT NO; POSITIVE DIFFERENTIAL NO; POSITIVE MORPHOLOGY NO
[2017-10-02 20:39] LABS: Squamous Epithelial Cells - UA 5-10 SEEN /hpf (5-10); White Blood Cells 0-5 SEEN /hpf (0-5)
--- NOTE | 2017-10-02 20:40 | RAD_ITS ---
STUDY: X-RAY - ACUTE ABDOMINAL SERIES REASON FOR EXAM: Female, 56 years old. Abdominal pain TECHNIQUE: Single view of the chest. Supine, and erect view(s) of the abdomen were obtained. COMPARISON: Prior study of 10/14/2015 FINDINGS: The lungs are clear and expanded. Normal size heart. Normal mediastinum and giovanna. Normal visualized pulmonary arteries. Normal visualized aortic arch and descending thoracic aorta. There is a non-specific bowel gas pattern. The soft tissue structures of the abdomen and pelvis are unremarkable. There is a mild midthoracic dextroscoliosis. Surgical clips are seen in the right upper quadrant of the abdomen. RAD/Acute Abdomen Inc Chest IMPRESSION: Mild midthoracic dextroscoliosis. Surgical clips are seen in the right upper quadrant of the abdomen most likely associated with cholecystectomy. There is no evidence of ileus, obstruction, or free intraperitoneal air. Electronically Signed: Phillip Evans MD at 20:54 EDT , Service support ,
[2017-10-02 20:50] LABS: AST(SGOT) 12 U/L (15-37); Alanine Aminotransfer ALT/SGPT 14 U/L (13-56); Albumin, Serum 3.8 g/dL (3.2-5.0); Alkaline Phosphatase 69 U/L (45-117); Anion Gap 6 (5-15); BUN 14 mg/dL (7-18); BUN/Creat Ratio 11.8 RATIO (10-20); Calcium,Total 8.3 mg/dL (8.5-10.1); Chloride 108 mmol/L (98-107); Creatinine, Serum 1.19 mg/dL (0.55-1.02); EST Glomerular Filtration Rate 50 mL/min (>60); Est Glom Filt Rate - Afr Amer 60 mL/min (>60); Estimated Creatinine Clearance 48.17 ml/min; Glucose 80 mg/dL (74-106); Protein, Total 7.8 g/dL (6.4-8.2); Sodium Level 141 mmol/L (136-145)
--- NOTE | 2017-10-02 21:10 | ED.VISSUMM ---
- ER Visit Summary Date of Service: 10/02/17 Chief Complaint: Abdominal pain History of Present Illness: The patient is a 56 F who presents to the emergency department with left lower quadrant abdominal pain. Patient had the symptoms for the past 2 days. She describes a cramping in her abdomen. She denies any nausea vomiting. She denies any diarrhea. She has had no urinary symptoms. The patient has had multiple visits for the same pain. She has had multiple negative CAT scans. Physical Examination: Vital signs reviewed General: Well-nourished, well-developed Head: Normocephalic, atraumatic Eyes: Pupils equal and reactive, extraocular muscles intact Neck, supple, no lymphadenopathy Heart: Regular rate and rhythm Respiratory: No distress, clear bilaterally Abdomen: Soft, mildly tender in the left lower quadrant without rebound or guarding, nondistended, no peritoneal signs Back: Nontender Extremities: Nontender, no edema, no cords Skin: Normal color no rash Neuro: Alert and oriented, no focal or lateralizing deficits Test Results: [] Emergency Department Course and Treatment: I did review the patient's prior 6 CT scans. There was no evidence of acute intra-abdominal process. She has had recurrence of the symptoms. IV was established. She was given analgesics and antiemetics. Her symptoms had totally resolved. I did obtain plain films which showed no obstruction. Her urine shows no infection. At this time, I do not feel that she requires treatment for diverticulitis given her unremarkable workup. I did career development counselor her though that if her symptoms do not improve over the next 24-48 hours she should return for reevaluation. She is comfortable with this plan of care. Treatment Plan: [] Disposition: Discharge Impression: 1. Left lower quadrant abdominal pain This note was generated with [employer] dictation software. It may contain incorrect words, spelling, and punctuation that were not noted in review of the chart prior to signing ED Disposition - Plan for ED Patient: Chief Complaint: Abd Pain Instructions: ED Abdominal Pain Unkn Cause Prescriptions: Ondansetron [Zofran Odt] 4 mg PO Q8H PRN PRN #10 tab PRN Reason: Nausea Dicyclomine HCl [Bentyl] 20 mg PO TIDAC #20 cap Referrals: Carol Gonzalez PA [Primary Care Provider] -
[2017-10-02 21:26] VITALS: BP 123/64; PULSE 74; RESP 16; O2SAT 100
== END 2017-10-02 21:26 | disposition home or self-care (01) ==
LOC: ED 20:25
PROVIDERS: Emergency Provider Emergency Medicine; Family Provider Physician Assistant; PCP Physician Assistant
DX: R10.32 Left lower quadrant pain (principal); K21.9 Gastro-esophageal reflux disease without esophagitis
CPT/HCPCS: 74022; 80053; 81001; 85025; 96361; 96374; 96375; 99284; J7030; A4216; J2405

== ENCOUNTER 2017-11-15 18:01 | Emergency (ER) | payer MEDICAID, SELFPAY ==
[2017-11-15 18:02] VITALS: BP 139/88; PULSE 82; RESP 16; TEMP 36.7; O2SAT 97; BMI 20.5
[2017-11-15 18:07] VITALS: BP 139/88; PULSE 81; RESP 18; O2SAT 98
--- NOTE | 2017-11-15 18:49 | ED.VISSUMM ---
- ER Visit Summary Date of Service: 11/15/17 Chief Complaint: Right shoulder pain History of Present Illness: The patient is a 56 F presenting with right shoulder pain. Patient states that she was lifting multiple gallon water jugs on Wednesday. She started having pain in her right shoulder. She took ibuprofen at home with some relief. She continues to complain of right shoulder pain that is now radiating to the right side of her neck. It is worsened with movement. She denies other injuries. Physical Examination: Vitals are stable. Patient is afebrile. Alert no acute distress. HEENT exam is unremarkable. Neck is supple. Nontender Lungs are clear and equal bilaterally. Heart is regular rate and rhythm. Abdomen is soft nontender nondistended. Extremities right posterior shoulder tenderness, AFROM. Neurovascularly intact distally. Skin is warm and dry. No focal neurologic deficit. Normal strength and sensation Remainder of exam is unremarkable. Emergency Department Course and Treatment: Patient is given morphine, Zofran IM. Right shoulder x-ray shows no acute process. Patient is given a prescription for Naprosyn and Flexeril. She is advised to follow-up with her primary care physician. Advised return ED for worsening complaints. Disposition: Discharge home Impression: Right shoulder strain This note was generated with [employer] dictation software. It may contain incorrect words, spelling, and punctuation that were not noted in review of the chart prior to signing ED Disposition - Plan for ED Patient: Chief Complaint: Other, Pain/Inj Referrals: Carol Gonzalez PA [Primary Care Provider] -
[2017-11-15] MEDS: morphine 8 MG/ML Syringe 6 MG IM (18:57)
[2017-11-15] MEDS: Ondansetron 4 MG/2 ML Vial IM (18:58)
--- NOTE | 2017-11-15 20:07 | ED.DEP ---
ED Disposition - Plan for ED Patient: Chief Complaint: Other, Pain/Inj Instructions: ED Sprain Shoulder Prescriptions: Naproxen [Naprosyn] 500 mg PO BID PRN #20 tablet Cyclobenzaprine [Flexeril] 10 mg PO TID PRN #20 tablet PRN Reason: Muscle Spasm Referrals: Carol Gonzalez PA [Primary Care Provider] -
[2017-11-15 20:27] VITALS: BP 101/86; PULSE 64; RESP 16; O2SAT 98
--- NOTE | 2017-11-15 20:39 | ED.RN ---
Addendum entered by Patrick Wilson 11/15/17 20:40: Dr. Gastelum notified and states will come see pt again. Got pt back in bed and took vitals which were stable Original Note: after discharging patient, she got dressed on her own. Pt walks out to nurses station and states she is all shakey and feels like she is going to black out Pt had very similar sx on arrival.
[2017-11-15 20:41] VITALS: BP 117/61; PULSE 71; RESP 16; O2SAT 97
[2017-11-15 21:04] VITALS: BP 113/58; PULSE 77; RESP 14; O2SAT 99
--- NOTE | 2017-11-15 21:07 | ED.RN ---
pt states she feels better and would like to leave now. Dr. Gastelmu states that is ok. vitals taken again and stable
== END 2017-11-15 21:09 | disposition home or self-care (01) ==
LOC: ED 18:41
PROVIDERS: Emergency Provider Emergency Medicine; Family Provider Physician Assistant; PCP Physician Assistant
DX: S46.811A Strain of other muscles, fascia and tendons at shoulder and upper arm level, right arm, initial encounter (principal); K21.9 Gastro-esophageal reflux disease without esophagitis; F32.9 Major depressive disorder, single episode, unspecified; Z79.899 Other long term (current) drug therapy; X50.9XXA Other and unspecified overexertion or strenuous movements or postures, initial encounter; Y93.89 Activity, other specified; Y92.89 Other specified places as the place of occurrence of the external cause; Y99.8 Other external cause status
CPT/HCPCS: 73030; 96372; 99282; J2405

== ENCOUNTER 2018-01-17 22:35 | Emergency (ER) | payer MEDICAID, SELFPAY ==
[2018-01-17 22:36] VITALS: BP 113/63; PULSE 72; RESP 19; TEMP 36.7; O2SAT 97; BMI 20.9
--- NOTE | 2018-01-17 22:50 | CT_ITS ---
STUDY: CT ABDOMEN AND PELVIS WITHOUT CONTRAST REASON FOR EXAM: Female, 57 years old. Pelvic pain and hematuria. RADIATION DOSAGE (If Supplied By Facility): CTDIvol = ( 6.13 ) mGy, DLP = ( 298.78 ) mGycm TECHNIQUE: Transaxial images were obtained from the dome of the diaphragm to the symphysis pubis without oral contrast, and without intravenous contrast. Sagittal and coronal images were reconstructed. Individualized dose optimization techniques were used for this CT. COMPARISON: 09/06/2017. FINDINGS: The visualized lung bases are unremarkable. The visualized portions of the heart are within normal limits. There is a small hiatal hernia, unchanged compared to the prior study. Normal liver. There are surgical clips in the gallbladder fossa consistent with a prior cholecystectomy. Normal spleen. Normal pancreas. Normal bilateral adrenal glands. There is moderate to severe chronic atrophy of the left kidney. There is mild right hydronephrosis, mildly increased compared to the prior study. The proximal ureter is dilated, with transition in the mid ureter. There is no obstructing stone. The aorta is normal in caliber. There is no bowel obstruction or inflammatory change. Normal appendix. Diverticulosis is noted, with no evidence of acute diverticulitis. The bladder is not distended. Normal abdominal wall. Normal osseous structures. CT/Abdomen/Pelvis without Cont IMPRESSION: 1. Mild right hydronephrosis without obstructing stone. Consider small, nonopaque, or passed stone. Findings are mildly increased compared to the prior study, and the possibility of ureteral stricture or neoplasm cannot be excluded. 2. Small hiatal hernia, stable. 3. Diverticulosis. No diverticulitis. 4. Left renal atrophy. 5. Cholecystectomy. Electronically Signed: Kathrine Horta MD at 23:51 EDT Tel , Service support ,
--- NOTE | 2018-01-17 22:52 | ED.VISSUMM ---
- ER Visit Summary Date of Service: 01/17/18 Chief Complaint: Hematuria History of Present Illness: The patient is a 57 F with lower abdominal and left flank pain today with dysuria and hematuria. Patient does report having chills the past few days. Today she has had subjective fever and chills. She denies vomiting. Physical Examination: Vital signs unremarkable. Patient is afebrile. Patient is sitting upright in bed no acute distress. She is nontoxic appearing. Heart is regular rate and rhythm. Lung sounds are clear. Abdomen is soft with tenderness along the left side of the abdomen. She does have mild left CVA tenderness. Test Results: CBC was normal white count. Hemoglobin is 11.0 and platelet count is 147,000. Chemistry studies reveal creatinine 1.25 which is consistent with her prior values. Urinalysis shows 50-100 white cells and 2+ bacteria. Urine culture has been sent. CT flank reveals mild right hydronephrosis without stone. This is mildly increased when compared to prior study. Left renal atrophy is noted. Emergency Department Course and Treatment: Patient was given Toradol, Zofran, IV fluids along with p.o. Azo. On repeat evaluation patient is resting comfortably. She will be treated with a 10-day course of Bactrim to cover pyelonephritis. She will also be given Pyridium for home. Treatment Plan: [] Disposition: Discharge Impression: Pyelonephritis This note was generated with [employer] dictation software. It may contain incorrect words, spelling, and punctuation that were not noted in review of the chart prior to signing ED Disposition - Plan for ED Patient: Chief Complaint: Complaint Referrals: Carol Gonzalez PA [Primary Care Provider] -
[2018-01-17] MEDS: 0.9% Normal Saline 1,000 ML 150 ML IV (23:13)
[2018-01-17] MEDS: Phenazopyridine 95 MG Tablet 190 MG PO (23:13)
[2018-01-17] MEDS: Ondansetron 4 MG/2 ML Vial IV (23:13)
[2018-01-17] MEDS: Ketorolac 30 MG/ML Syringe IV (23:13)
[2018-01-17 23:19] LABS: Absolute Lymphocyte Count 1.25 X10^3/ul (0.83-4.51); Absolute Neutrophil Count 5.9 X10^3/uL (2.0-7.7); Basophil# 0.03 X10^3/uL; Basophil% 0.4 % (0-1); Eosinophil# 0.05 X10^3/uL; Eosinophils% 0.6 % (0-5); Lymphocyte # 1.25 X10^3/ul (4.0); Mean Corp Hgb Conc 30.6 g/gl (32-36); Mean Corpuscular Hgb 23.9 pg (27.0-32.0); Mean Corpuscular Volume 78.3 fL (81-99); Mean Platelet Vol. 10.7 fl (6.2-12.0); Monocyte# 0.56 X10^3/uL; Monocyte% 7.2 % (0-10); Neutrophil # 5.89 X10^3/uL (2.7-7.7); Neutrophil % 75.7 % (47-70); Platelet Count 147 K/mm3 (150-450); RBC Distribution Width CV 14.7 % (11.6-14.6); RBC Distribution Width SD 41.5 fl (35.1-43.9); White Blood Count 7.8 K/mm3 (4.4-11.0)
[2018-01-17 23:22] LABS: Anion Gap 7 (5-15); BUN 14 mg/dL (7-18); BUN/Creat Ratio 11.2 RATIO (10-20); Calcium,Total 8.3 mg/dL (8.5-10.1); Chloride 111 mmol/L (98-107); Creatinine, Serum 1.25 mg/dL (0.55-1.02); EST Glomerular Filtration Rate 47 mL/min (>60); Est Glom Filt Rate - Afr Amer 57 mL/min (>60); Estimated Creatinine Clearance 45.67 ml/min; Glucose 84 mg/dL (74-106); Potassium 4.1 mmol/L (3.5-5.1); Sodium Level 143 mmol/L (136-145)
[2018-01-17 23:23] LABS: Mucous, Urine 0 SEEN /hpf (<or=2+); Red Blood Cells-Urine 0 SEEN /hpf (0-5)
[2018-01-17 23:37] LABS: POSITIVE COUNT NO; POSITIVE DIFFERENTIAL NO; POSITIVE MORPHOLOGY NO
[2018-01-17 23:42] LABS: Color, Urine Yellow (Yellow); Glucose, Dipstick Normal (Normal); Ketone-Dipstick Negative (Negative); Leukocyte Esterase-Dipstick 500 /ul (Negative); Nitrite-Dipstick Negative (Negative); Occult Blood-Urine 250 /ul (Negative); Protein-Dipstick 30 mg/dl (Negative); Urine Bilirubin Dipstick Negative (Negative); Urine Clarity Sl. Cloudy (Clear); Urine Urobilinogen Normal (Normal)
[2018-01-17 23:53] LABS: White Blood Cells 50-100 SEEN /hpf (0-5)
[2018-01-17 23:54] LABS: Bacteria 2+ /hpf (None Seen); Squamous Epithelial Cells - UA 0-5 SEEN /hpf (5-10)
--- NOTE | 2018-01-17 23:59 | ED.DEP ---
ED Disposition - Plan for ED Patient: Disposition: Home or Assisted Living Chief Complaint: Complaint Instructions: ED Kidney Infec Female Prescriptions: Phenazopyridine HCl [Pyridium] 200 mg PO BID PRN PRN #10 tablet PRN Reason: Pain Smz/Tmp Ds [Bactrim Ds] 1 tablet PO BID #20 tablet Referrals: Carol Gonzalez PA [Primary Care Provider] - 3-5 Days if not improving
[2018-01-18] MEDS: Smz/Tmp Ds Tablet 1 TABLET PO (00:07)
[2018-01-18 00:10] VITALS: PULSE 98; RESP 18
== END 2018-01-18 00:10 | disposition home or self-care (01) ==
PROVIDERS: Emergency Provider Emergency Medicine; Family Provider Physician Assistant; PCP Physician Assistant
DX: N12 Tubulo-interstitial nephritis, not specified as acute or chronic (principal); K21.9 Gastro-esophageal reflux disease without esophagitis; F41.9 Anxiety disorder, unspecified; F32.9 Major depressive disorder, single episode, unspecified; Z87.891 Personal history of nicotine dependence; Z79.899 Other long term (current) drug therapy
CPT/HCPCS: 74176; 80048; 81001; 85025; 87077; 87086; 87088; 87186; 96361; 96374; 96375; 99284; J7030; A4216; J2405

== ENCOUNTER 2018-02-08 12:12 | Emergency (ER) | payer MEDICAID, SELFPAY ==
[2018-02-08 12:13] VITALS: BP 117/79; PULSE 84; RESP 16; TEMP 35.8; O2SAT 100; BMI 21.4
[2018-02-08 12:29] VITALS: BP 139/85; PULSE 73; RESP 14; TEMP 36.7; O2SAT 97
--- NOTE | 2018-02-08 12:44 | CT_ITS ---
STUDY: CT ABDOMEN AND PELVIS WITH CONTRAST REASON FOR EXAM: Female, 57 years old. LEFT SIDED PAIN, HX OF CHOLECYSTECTOMY. RADIATION DOSAGE (If Supplied By Facility): CTDIvol = ( 19.16 ) mGy, DLP = ( 429.32 ) mGycm TECHNIQUE: Transaxial images were obtained from the dome of the diaphragm to the symphysis pubis without oral contrast. 100ML ml of Isovue 300 contrast was administered. Sagittal and coronal images were reconstructed. Individualized dose optimization techniques were used for this CT. COMPARISON: January 17, 2018 FINDINGS: The visualized lung bases are unremarkable. The visualized portions of the heart are within normal limits. Normal liver. There are surgical clips in the gallbladder fossa consistent with a prior cholecystectomy. There is moderate splenomegaly. Normal pancreas. Normal bilateral adrenal glands. Normal right kidney. There is atrophy of the left kidney Normal visualized stomach. Normal small intestine. There are multiple colonic diverticula consistent with diverticulosis. The appendix is visualized and appears normal. There is diffuse atherosclerotic calcification of the abdominal aorta, without a demonstrated aneurysm. Normal inferior vena cava. Normal retroperitoneum. Normal urinary bladder. There is trace amount of free fluid within the cul-de-sac Normal abdominal wall. Normal osseous structures. CT/Abdomen/Pelvis W IV Cont ONLY IMPRESSION: Left colon thickening and surrounding infiltration, consistent with acute diverticulitis. No perforation or abscess. Free fluid Splenomegaly. Electronically Signed: Darren Dai MD at 13:56 EST Tel , Service support ,
[2018-02-08 12:57] LABS: Absolute Lymphocyte Count 1.36 X10^3/ul (0.83-4.51); Absolute Neutrophil Count 2.3 X10^3/uL (2.0-7.7); Basophil# 0.01 X10^3/uL; Basophil% 0.2 % (0-1); Eosinophil# 0.03 X10^3/uL; Eosinophils% 0.7 % (0-5); Hematocrit 37.4 % (37-47); Hemoglobin 11.5 g/dl (12.0-15.0); Lymphocyte # 1.36 X10^3/ul (4.0); Lymphocyte % 32.2 % (19-41); Mean Corp Hgb Conc 30.7 g/gl (32-36); Mean Corpuscular Hgb 24.2 pg (27.0-32.0); Mean Corpuscular Volume 78.7 fL (81-99); Mean Platelet Vol. 10.4 fl (6.2-12.0); Monocyte% 11.8 % (0-10); Neutrophil # 2.32 X10^3/uL (2.7-7.7); Neutrophil % 55.1 % (47-70); Platelet Count 142 K/mm3 (150-450); RBC Distribution Width CV 14.5 % (11.6-14.6); RBC Distribution Width SD 41.2 fl (35.1-43.9); Red Blood Count 4.75 M/mm3 (4.2-5.4); White Blood Count 4.2 K/mm3 (4.4-11.0)
[2018-02-08] MEDS: 0.9% Normal Saline 1,000 ML 1000 ML IV (12:57)
[2018-02-08] MEDS: Ondansetron 4 MG/2 ML Vial IV (12:57)
[2018-02-08] MEDS: Morphine 4 MG/ML Syringe IV (12:57)
[2018-02-08 12:58] LABS: POSITIVE COUNT NO; POSITIVE DIFFERENTIAL NO; POSITIVE MORPHOLOGY NO
[2018-02-08 13:13] LABS: ALB/GLOB Ratio 0.9 RATIO (0.9-2.4); AST(SGOT) 20 U/L (15-37); Alanine Aminotransfer ALT/SGPT 26 U/L (13-56); Albumin, Serum 3.6 g/dL (3.2-5.0); Alkaline Phosphatase 56 U/L (45-117); Anion Gap 8 (5-15); BUN 13 mg/dL (7-18); BUN/Creat Ratio 11.4 RATIO (10-20); Bilirubin, Direct 0.09 mg/dL (0.00-0.30); Calcium,Total 8.4 mg/dL (8.5-10.1); Chloride 110 mmol/L (98-107); Creatinine, Serum 1.14 mg/dL (0.55-1.02); EST Glomerular Filtration Rate 52 mL/min (>60); Est Glom Filt Rate - Afr Amer 63 mL/min (>60); Estimated Creatinine Clearance 50.36 ml/min; Globulin 3.8 g/dL (2.2-4.2); Glucose 89 mg/dL (74-106); Lipase 110 U/L (73-393); Potassium 3.6 mmol/L (3.5-5.1); Protein, Total 7.4 g/dL (6.4-8.2); Sodium Level 140 mmol/L (136-145)
[2018-02-08 13:51] LABS: Color, Urine Yellow (Yellow); Glucose, Dipstick Normal (Normal); Ketone-Dipstick Negative (Negative); Leukocyte Esterase-Dipstick 500 /ul (Negative); Mucous, Urine 0 SEEN /hpf (<or=2+); Nitrite-Dipstick Negative (Negative); Occult Blood-Urine 10 /ul (Negative); Protein-Dipstick Negative (Negative); Specific Gravity, Urine 1.005 (1.002-1.030); Urine Bilirubin Dipstick Negative (Negative); Urine Clarity Clear (Clear); Urine Urobilinogen Normal (Normal); Urine pH 6.5 (5.0 - 8.0)
[2018-02-08 13:58] LABS: Bacteria 1+ /hpf (None Seen); Red Blood Cells-Urine 0-5 SEEN /hpf (0-5); Squamous Epithelial Cells - UA 0-5 SEEN /hpf (5-10); White Blood Cells 5-10 SEEN /hpf (0-5)
--- NOTE | 2018-02-08 14:08 | ED.VISSUMM ---
- ER Visit Summary Date of Service: 02/08/18 Chief Complaint: Abdominal pain History of Present Illness: The patient is a 57 F who sees Angel Gonzalez. She reports that she has left lower quadrant abdominal pain began 3 days ago. Sick continuous sharp, cramping pains 10 out of 10 severity. Is worsened by vomiting relieved by nothing. Reports the nausea and vomited approximately 15 times. No blood or emesis. Last bowel was yesterday. She had no melena or hematochezia. No dysuria or frequency. She reports this is similar to when she had diverticulitis in the past. Physical Examination: Vitals: Stable. Afebrile. General: Well-nourished and well-developed. Head: Normocephalic atraumatic. Neck: Supple, no lymphadenopathy. No JVD. Nontender. Cardiovascular: Regular rate and rhythm. No murmurs. Respiratory: No respiratory distress. Clear to auscultation bilaterally. Abdominal: Soft, nontender, nondistended, normal bowel sounds. No guarding, rebound, or peritoneal signs. Back: Nontender. Extremities: Nontender, no edema. Skin: Normal color, no rash. Neurologic: Alert and oriented ?3. Cranial nerves II through XII are intact. Normal strength and sensation. Psych: Normal affect. Moderate left upper quadrant and left lower quadrant tenderness to palpation Test Results: CBC is more for white count of 4.2 with monocytes of 12. Hemoglobin is 11.5. Chem-7 is more for chloride 110, calcium 8.4, creatinine 1.14. LFTs are normal. Lipase is normal. UA shows 5-10 white blood cells with blood, leukocytes, and 1+ bacteria. Clinical Impression(s) from Imaging Studies Abdomen/Pelvis CT 02/08/18 12:44 IMPRESSION: Left colon thickening and surrounding infiltration, consistent with acute diverticulitis. No perforation or abscess. Free fluid Splenomegaly. Emergency Department Course and Treatment: Patient with morphine and Zofran IV. He was given Cipro and Flagyl p.o. She is resting comfortably. Treatment Plan: Patient will be discharged with Cipro, Flagyl, Anahola, and Zofran. Instructed to follow-up with Angel Gonzalez in 1 week for another exam. Return to the emergency department for any worsening symptoms. Disposition: To home in improved and stable condition. Impression: 1. Diverticulitis. This note was generated with [employer] dictation software. It may contain incorrect words, spelling, and punctuation that were not noted in review of the chart prior to signing ED Disposition - Plan for ED Patient: Disposition: Home or Assisted Living Chief Complaint: Nausea/Vomiting Instructions: ED Diverticulitis Prescriptions: Hydrocodone Bitart/Apap 5-325 [Anahola 5MG-325MG] 1 tablet PO Q4H PRN PRN 2 Days #10 tablet PRN Reason: Pain Ondansetron [Zofran Odt] 4 mg PO Q8H PRN PRN #10 tablet PRN Reason: Nausea Ciprofloxacin [Cipro] 500 mg PO BID #20 tablet Metronidazole [Flagyl] 500 mg PO Q6H #40 tablet Referrals: Carol Gonzalez PA [Primary Care Provider] - 1-2 Weeks
[2018-02-08 14:22] VITALS: BP 134/82; PULSE 75; RESP 12; O2SAT 98
[2018-02-08] MEDS: Ciprofloxacin 500 MG Tablet PO (14:23)
[2018-02-08] MEDS: metroNIDAZOLE 500 MG Tablet PO (14:24)
== END 2018-02-08 14:36 | disposition home or self-care (01) ==
LOC: ED 12:49
PROVIDERS: Emergency Provider Emergency Medicine; Family Provider Physician Assistant; PCP Physician Assistant
DX: K57.92 Diverticulitis of intestine, part unspecified, without perforation or abscess without bleeding (principal); Z87.442 Personal history of urinary calculi; Z79.899 Other long term (current) drug therapy
CPT/HCPCS: 74177; 80053; 80076; 81001; 83690; 85025; 96361; 96374; 96375; 99284; J7030; Q9967; A4216; J2405

== ENCOUNTER 2018-03-05 13:44 | Emergency (ER) | payer MEDICAID, SELFPAY ==
[2018-03-05 13:44] VITALS: BP 141/83; PULSE 90; RESP 18; TEMP 36.6; O2SAT 100; BMI 19.8; BMI 21.1
--- NOTE | 2018-03-05 13:57 | CT_ITS ---
STUDY: CT ABDOMEN AND PELVIS WITHOUT CONTRAST REASON FOR EXAM: Female, 57 years old. Left lower quadrant pain. RADIATION DOSAGE (If Supplied By Facility): CTDIvol = ( 6.50 ) mGy, DLP = ( 292.27 ) mGycm TECHNIQUE: Transaxial images were obtained from the dome of the diaphragm to the symphysis pubis without oral contrast, and without intravenous contrast. Sagittal and coronal images were reconstructed. Individualized dose optimization techniques were used for this CT. COMPARISON: 02/08/2018. FINDINGS: The visualized lung bases are unremarkable. The visualized portions of the heart are within normal limits. The liver is borderline in size. There are surgical clips in the gallbladder fossa consistent with a prior cholecystectomy. There is mild splenomegaly. Normal pancreas. Normal bilateral adrenal glands. Normal right kidney. The left kidney is small and atrophic. There is moderate size hiatal hernia. The small bowel loops are normal in caliber. There is fecal retention. There are densities within the colon likely representing undissolved ingested materials. There is focal thickening of the distal descending colon consistent with focal diverticulitis. There is no evidence of drainable abscess. No free air is seen. The appendix is visualized and appears normal. There is atherosclerotic calcification of the abdominal aorta, without a demonstrated aneurysm. Normal inferior vena cava. Normal retroperitoneum. Normal urinary bladder. Normal abdominal wall. Normal osseous structures. CT/Abdomen/Pelvis without Cont IMPRESSION: 1. Focal inflammatory changes in the left lower quadrant in the region of the distal descending colon consistent with acute diverticulitis. 2. No evidence of drainable abscess or free air. 3. Borderline to mild hepatosplenomegaly. 4. Atrophic left kidney. Electronically Signed: Aidan Curran MD at 15:19 EST Tel , Service support ,
[2018-03-05] MEDS: 0.9% Normal Saline 1,000 ML 1000 ML IV (14:24)
[2018-03-05] MEDS: Ondansetron 4 MG/2 ML Vial IV (14:24)
[2018-03-05] MEDS: Ketorolac 30 MG/ML Syringe IV (14:24)
[2018-03-05 14:36] LABS: Absolute Lymphocyte Count 1.21 X10^3/ul (0.83-4.51); Basophil# 0.01 X10^3/uL; Basophil% 0.2 % (0-1); Eosinophil# 0.02 X10^3/uL; Eosinophils% 0.3 % (0-5); Hematocrit 38.3 % (37-47); Hemoglobin 11.9 g/dl (12.0-15.0); Lymphocyte # 1.21 X10^3/ul (4.0); Lymphocyte % 18.3 % (19-41); Mean Corp Hgb Conc 31.1 g/gl (32-36); Mean Corpuscular Hgb 24.1 pg (27.0-32.0); Mean Corpuscular Volume 77.7 fL (81-99); Mean Platelet Vol. 10.3 fl (6.2-12.0); Monocyte% 6.1 % (0-10); Neutrophil # 4.95 X10^3/uL (2.7-7.7); Neutrophil % 74.9 % (47-70); Platelet Count 167 K/mm3 (150-450); RBC Distribution Width CV 14.1 % (11.6-14.6); RBC Distribution Width SD 39.8 fl (35.1-43.9); Red Blood Count 4.93 M/mm3 (4.2-5.4); White Blood Count 6.6 K/mm3 (4.4-11.0)
[2018-03-05 14:42] LABS: POSITIVE COUNT NO; POSITIVE DIFFERENTIAL NO; POSITIVE MORPHOLOGY NO
[2018-03-05 14:51] LABS: Anion Gap 7 (5-15); BUN 15 mg/dL (7-18); BUN/Creat Ratio 13.5 RATIO (10-20); Calcium,Total 8.7 mg/dL (8.5-10.1); Chloride 112 mmol/L (98-107); Creatinine, Serum 1.11 mg/dL (0.55-1.02); EST Glomerular Filtration Rate 54 mL/min (>60); Est Glom Filt Rate - Afr Amer 65 mL/min (>60); Estimated Creatinine Clearance 48.66 ml/min; Glucose 96 mg/dL (74-106); Potassium 3.9 mmol/L (3.5-5.1); Sodium Level 144 mmol/L (136-145)
--- NOTE | 2018-03-05 16:00 | ED.DCSUM_ITS ---
- ER Visit Summary Date of Service: 03/05/18 Chief Complaint: Abdominal pain History of Present Illness: The patient is a 57 F who sees Angel Gonzalez. She has also seen Dr. Padron in the past. She reports she had a colonoscopy approximately 2 years ago. Patient was seen in the emergency department February 08 and diagnosed with diverticulitis. She was placed on Cipro and Flagyl. She reports that her symptoms resolved. However, she is noted again that she has left lower quadrant pain that began at 6:00 this morning. It is a sharp pain is 10 out of 10 severity. Is worsened by standing and movement. Is relieved by nothing. She has had nausea without vomiting. No diarrhea. Her last bowel was yesterday. No melena or hematochezia. No dysuria or frequency. She does complain of subjective fever and chills. Physical Examination: Vitals: Stable. Afebrile. General: Well-nourished and well-developed. Head: Normocephalic atraumatic. Neck: Supple, no lymphadenopathy. No JVD. Nontender. Cardiovascular: Regular rate and rhythm. No murmurs. Respiratory: No respiratory distress. Clear to auscultation bilaterally. Abdominal: Soft, mild left lower quadrant tenderness to palpation, nondistended, normal bowel sounds. No guarding, rebound, or peritoneal signs. Back: Nontender. Extremities: Nontender, no edema. Skin: Normal color, no rash. Neurologic: Alert and oriented ?3. Cranial nerves II through XII are intact. Normal strength and sensation. Psych: Normal affect. Test Results: CBC is remarkable for hemoglobin of 11.9, segmented neutrophils of 75, lymphocytes of 18. Chem-7 is more for chloride of 112 and creatinine 1.11. Clinical Impression(s) from Imaging Studies Abdomen/Pelvis CT 03/05/18 13:57 IMPRESSION: 1. Focal inflammatory changes in the left lower quadrant in the region of the distal descending colon consistent with acute diverticulitis. 2. No evidence of drainable abscess or free air. 3. Borderline to mild hepatosplenomegaly. 4. Atrophic left kidney. Electronically Signed: Aidan Curran MD at 15:19 EST Tel , Service support , Emergency Department Course and Treatment: Patient was treated Toradol and Zofran IV. She was given a liter normal and she is resting comfortably. Treatment Plan: Discussed with patient possibility of incomplete treatment or treatment failure with Kyle and Maicol. She will be changed to Augmentin 875 mg p.o. 3 times daily. She also given Zofran for nausea and Colo for pain. I suggested that she follow-up with Dr. Padron in 10-14 days for another exam. Return to the emergency department for any worsening symptoms. Disposition: To home in improved and stable condition. Impression: 1. Diverticulitis. This note was generated with [facility] dictation software. It may contain incorrect words, spelling, and punctuation that were not noted in review of the chart prior to signing ED Disposition - Plan for ED Patient: Chief Complaint: Abd Pain Instructions: ED Diverticulitis Prescriptions: Hydrocodone Bitart/Apap 5-325 [Colo 5MG-325MG] 1 tablet PO Q4H PRN PRN 2 Days #10 tablet PRN Reason: Pain Ondansetron [Zofran Odt] 4 mg PO Q8H PRN PRN #10 tablet PRN Reason: Nausea Amox/Clavulanate Tablet [Augmentin Tablet] 875 mg PO TID #30 tablet Referrals: Steve Arthur MD [STAFF PHYSICIAN] - 10-14 Days if not better
[2018-03-05 16:15] VITALS: BP 136/82; PULSE 74; RESP 14; O2SAT 100
== END 2018-03-05 16:16 | disposition home or self-care (01) ==
LOC: ED 14:59
PROVIDERS: Emergency Provider Emergency Medicine; Family Provider Physician Assistant; PCP Physician Assistant
DX: K57.32 Diverticulitis of large intestine without perforation or abscess without bleeding (principal); Z79.899 Other long term (current) drug therapy
CPT/HCPCS: 74176; 80048; 85025; 96361; 96374; 96375; 99283; J7030; A4216; J2405

== ENCOUNTER 2018-03-29 17:09 | Emergency (ER) | payer MEDICAID, SELFPAY ==
[2018-03-05 13:44] VITALS: BMI 19.8
[2018-03-29 17:09] VITALS: BP 116/76; PULSE 80; RESP 16; TEMP 36.8; O2SAT 98; BMI 21.7
--- NOTE | 2018-03-29 17:37 | ED.VISSUMM ---
- ER Visit Summary Date of Service: 03/29/18 Chief Complaint: Dysuria History of Present Illness: The patient is a 57 F presents to the emergency department with pain with urination. Patient states over the past 5 days, she had increasing urinary frequency, urgency, and burning. Over the past 2 or 3 days, she began to have fever and chills. The patient does get recurrent urinary tract infection. She was mildly nauseated without vomiting. She denies any history of immunosuppression. Her last antibiotic use was 2 months ago. She denies any vaginal bleeding or discharge. She denies any flank pain. Physical Examination: Vital signs reviewed General: Well-nourished, well-developed Head: Normocephalic, atraumatic Eyes: Pupils equal and reactive, extraocular muscles intact Neck, supple, no lymphadenopathy Heart: Regular rate and rhythm Respiratory: No distress, clear bilaterally Abdomen: Soft, nontender, nondistended, no peritoneal signs Back: Nontender Extremities: Nontender, no edema, no cords Skin: Normal color no rash Neuro: Alert and oriented, no focal or lateralizing deficits Test Results: [] Emergency Department Course and Treatment: The patient presents with dysuria, fevers, chills, and pain with urination. She has no flank pain. Her abdomen is soft and nontender. Her vitals are unremarkable. Did obtain a urine which does show bacteria, but no other significant evidence of infection. However, the patient does have a history of recurrent urinary tract infections. She is on multiple positive cultures with unremarkable urines. I do feel that the most prudent thing would be to treat her. I did review her prior cultures and she has been sensitive to Cipro. She will be started on this. She also given antiemetics. She was counseled on concerning symptoms and reasons to return. The patient be discharged home. Treatment Plan: [] Disposition: Discharge Impression: Acute cystitis This note was generated with [employer] dictation software. It may contain incorrect words, spelling, and punctuation that were not noted in review of the chart prior to signing ED Disposition - Plan for ED Patient: Chief Complaint: Complaint Instructions: ED UTI Cystitis Female Prescriptions: proMETHazine tablet [Phenergan] 25 mg PO Q6H PRN PRN #10 tab PRN Reason: Nausea Ciprofloxacin [Cipro] 500 mg PO BID #14 tab Referrals: Carol Gonzalez PA [Primary Care Provider] -
[2018-03-29] MEDS: Ondansetron ODT 4 MG Tablet PO (17:39)
[2018-03-29] MEDS: Acetaminophen 500 MG Tablet 1000 MG PO (17:39)
[2018-03-29 17:46] LABS: Red Blood Cells-Urine 0 SEEN /hpf (0-5)
[2018-03-29 17:48] LABS: Color, Urine Yellow (Yellow); Glucose, Dipstick Normal (Normal); Ketone-Dipstick Negative (Negative); Leukocyte Esterase-Dipstick Negative /ul (Negative); Nitrite-Dipstick Negative (Negative); Occult Blood-Urine Negative /ul (Negative); Protein-Dipstick Negative (Negative); Specific Gravity, Urine 1.005 (1.002-1.030); Urine Bilirubin Dipstick Negative (Negative); Urine Clarity Sl. Cloudy (Clear); Urine Urobilinogen Normal (Normal)
[2018-03-29 17:59] LABS: Bacteria RARE /hpf (None Seen); Mucous, Urine RARE /hpf (<or=2+); Squamous Epithelial Cells - UA 0-5 SEEN /hpf (5-10); White Blood Cells 0-5 SEEN /hpf (0-5)
[2018-03-29] MEDS: Ciprofloxacin 500 MG Tablet PO (18:18)
[2018-03-29 18:29] VITALS: BP 102/64; PULSE 71; RESP 16; O2SAT 98
== END 2018-03-29 18:43 | disposition home or self-care (01) ==
LOC: ED 18:32
PROVIDERS: Emergency Provider Emergency Medicine; Family Provider Physician Assistant; PCP Physician Assistant
DX: N30.00 Acute cystitis without hematuria (principal); Z87.440 Personal history of urinary (tract) infections; K21.9 Gastro-esophageal reflux disease without esophagitis; Z79.899 Other long term (current) drug therapy
CPT/HCPCS: 81001; 87086; 87088; 99283

== ENCOUNTER 2018-05-01 15:15 | Inpatient (IN) | payer MEDICAID, SELFPAY ==
[2018-05-01 15:17] VITALS: BP 104/62; PULSE 77; RESP 16; TEMP 36.1; O2SAT 99; BMI 20.9
--- NOTE | 2018-05-01 15:29 | CT_ITS ---
STUDY: CT ABDOMEN AND PELVIS WITHOUT CONTRAST REASON FOR EXAM: Female, 57 years old. Diverticulitis. RADIATION DOSAGE (If Supplied By Facility): CTDIvol = ( 6.06 ) mGy, DLP = ( 272.34 ) mGycm TECHNIQUE: Transaxial images were obtained from the dome of the diaphragm to the symphysis pubis without oral contrast, and without intravenous contrast. Sagittal and coronal images were reconstructed. Individualized dose optimization techniques were used for this CT. COMPARISON: 03/05/2018. FINDINGS: Lung bases are clear. Visualized heart is normal. There is a small hiatal hernia. This is unchanged compared to the prior study. The liver is unremarkable. The gallbladder is surgically absent. The spleen and pancreas are unremarkable. The adrenal glands are normal. There is severe left renal atrophy. The right kidney is unremarkable. No renal stones or hydronephrosis. The aorta is normal in caliber. Colonic diverticulosis is noted. Hyperdense material within the colon consistent with undissolved pills. There is a moderate stool burden. There is moderate pericolonic stranding about the distal descending colon, associated with a 1.7 x 1.7 cm diverticular abscess. There is no free fluid or free air in the abdomen or pelvis. Urinary bladder is unremarkable. Normal abdominal wall. Normal osseous structures. CT/Abdomen/Pelvis without Cont IMPRESSION: 1. Acute diverticulitis of the descending colon with a 1.7 cm diverticular abscess. No free air. 2. Small hiatal hernia. 3. Left renal atrophy. Electronically Signed: Kathrine Horta MD at 16:58 EST Tel , Service support ,
--- NOTE | 2018-05-01 15:30 | ED.VISSUMM ---
- ER Visit Summary Date of Service: 05/01/18 Chief Complaint: Abdominal pain History of Present Illness: The patient is a 57 F with history of diverticulitis presents with left lower quadrant abdominal pain. No fever or chills she has loose stools. This started yesterday. Pain is moderate achy. She has no right-sided pain no epigastric pain. No CVA tenderness or dysuria. Physical Examination: Not appear in acute distress. Moist mucous membranes, no obvious facial deformity No C-spine tenderness supple neck. Regular rate and rhythm without any obvious murmurs Clear lungs bilaterally speaking in full sentences without any obvious respiratory distress Abdomen soft with left lower abdominal pain, no guarding or rebound. Moves all extremities without any difficulty or pain. Skin does not show any obvious rashes or lesions, no trauma. Alert oriented ?3 with no gross focal deficit Emergency Department Course and Treatment: Patient presents with left lower quadrant pain without guarding or rebound, she has no leukocytosis but she has a small 1.7 cm diverticular abscess. I discussed with surgery, surgical intervention is not indicated. I will admit medically. Disposition: Admit in stable condition Impression: Diverticulitis with diverticular abscess This note was generated with [employer] dictation software. It may contain incorrect words, spelling, and punctuation that were not noted in review of the chart prior to signing ED Disposition - Plan for ED Patient: Referrals: Carol Gonzalez PA [Primary Care Provider] -
[2018-05-01] MEDS: Ondansetron 4 MG/2 ML Vial IV ×2 (15:36→19:10)
[2018-05-01] MEDS: Ketorolac 30 MG/ML Syringe 15 MG IV (15:36)
[2018-05-01 15:49] LABS: Absolute Lymphocyte Count 1.73 X10^3/ul (0.83-4.51); Absolute Neutrophil Count 4.8 X10^3/uL (2.0-7.7); Basophil# 0.03 X10^3/uL; Basophil% 0.4 % (0-1); Eosinophils% 1.4 % (0-5); Hematocrit 35.5 % (37-47); Hemoglobin 10.8 g/dl (12.0-15.0); Lymphocyte # 1.73 X10^3/ul (4.0); Lymphocyte % 23.8 % (19-41); Mean Corp Hgb Conc 30.4 g/gl (32-36); Mean Corpuscular Hgb 24.2 pg (27.0-32.0); Mean Corpuscular Volume 79.4 fL (81-99); Mean Platelet Vol. 10.8 fl (6.2-12.0); Monocyte# 0.58 X10^3/uL; Neutrophil # 4.82 X10^3/uL (2.7-7.7); Neutrophil % 66.3 % (47-70); Platelet Count 193 K/mm3 (150-450); RBC Distribution Width SD 39.8 fl (35.1-43.9); Red Blood Count 4.47 M/mm3 (4.2-5.4); White Blood Count 7.3 K/mm3 (4.4-11.0)
[2018-05-01 15:51] LABS: POSITIVE COUNT NO; POSITIVE DIFFERENTIAL NO; POSITIVE MORPHOLOGY NO
[2018-05-01 15:54] LABS: Bacteria 0 SEEN /hpf (None Seen); Mucous, Urine 0 SEEN /hpf (<or=2+); Red Blood Cells-Urine 0 SEEN /hpf (0-5); White Blood Cells 0 SEEN /hpf (0-5)
[2018-05-01 15:58] LABS: ALB/GLOB Ratio 1.1 RATIO (0.9-2.4); AST(SGOT) 13 U/L (15-37); Alanine Aminotransfer ALT/SGPT 17 U/L (13-56); Albumin, Serum 3.7 g/dL (3.2-5.0); Alkaline Phosphatase 80 U/L (45-117); Anion Gap 9 (5-15); BUN 15 mg/dL (7-18); Calcium,Total 8.7 mg/dL (8.5-10.1); Chloride 111 mmol/L (98-107); Creatinine, Serum 1.15 mg/dL (0.55-1.02); EST Glomerular Filtration Rate 51 mL/min (>60); Est Glom Filt Rate - Afr Amer 62 mL/min (>60); Estimated Creatinine Clearance 49.64 ml/min; Globulin 3.4 g/dL (2.2-4.2); Glucose 104 mg/dL (74-106); Protein, Total 7.1 g/dL (6.4-8.2); Sodium Level 144 mmol/L (136-145)
[2018-05-01 16:01] LABS: Color, Urine Yellow (Yellow); Glucose, Dipstick Normal (Normal); Ketone-Dipstick Negative (Negative); Leukocyte Esterase-Dipstick 100 /ul (Negative); Nitrite-Dipstick Negative (Negative); Occult Blood-Urine Negative /ul (Negative); Protein-Dipstick Negative (Negative); Urine Bilirubin Dipstick Negative (Negative); Urine Clarity Clear (Clear); Urine Urobilinogen Normal (Normal)
[2018-05-01 16:10] LABS: Squamous Epithelial Cells - UA 0-5 SEEN /hpf (5-10)
--- NOTE | 2018-05-01 17:29 | PCM.HP.STD ---
Problem List (1) Abdominal pain, left lower quadrant Status: Acute (2) Depression Status: Chronic (3) Anxiety Status: Chronic History of Present Illness Date of Admission: 05/01/18 Chief Complaint: Left lower quadrant abdominal pain. The patient is a 57 year old F who presents emergency room due to left lower quadrant abdominal pain which began last night. Patient reports her left lower abdomen is tender to touch with cramping 6/10 constant pain. She reports diarrhea overnight which has resolved today. Denies blood in stool. Denies fever, chills. Denies nausea, vomiting. Denies urinary symptoms. She has a history of diverticulitis. She has never had a colonoscopy or followed up with GI. Her other past medical history includes depression, anxiety, GERD. 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 Paternal History Items: - - Congestive heart failure Review of Systems Constitutional: Denies: Chills, Fever, Weight Change HEENT: Denies: Head Aches, Sinus Congestion, Sinus Drainage Cardiovascular: Denies: Chest Pain, Palpitations Respiratory: Denies: Cough, Shortness of breath at rest, Sputum production Gastrointestinal: Reports: Abdominal Pain - LLQ, Diarrhea. Denies: Hematochezia, Nausea, Melena, Vomiting Genitourinary: Denies: Dysuria Musculoskeletal: Denies: Joint Pain, Joint Tenderness Skin: Denies: Rash, Wounds Neurological: Denies: Numbness, Tingling, Focal weakness Psychiatric: Reports: Anxiety, Depression Hematologic/ Lymphatic: Denies: Easy Bruising, Easy Bleeding VTE Information - Inpt Only VTE Present on Admission: No VTE Mechan Device Prophylaxis: None VTE Pharm Prophylaxis ordered?: Yes - Physical Exam General: Alert, Oriented x3, Cooperative HEENT: Atraumatic, PERRLA, EOMI, Normocephalic Neck: Supple, No JVD, Negative Carotid Bruits Lungs: Clear to auscultation, Normal air movement Cardiovascular: Regular rate, Regular Rhythm, Normal S1, Normal S2, No murmurs Abdomen: Bowel Sounds Present, Soft, Non-Distended, Tender - LLQ Extremities: No clubbing, No cyanosis, No edema, Capillary Refill Less than 3 Seconds Skin: No rashes, No breakdown Musculoskeletal: No Tenderness to Palpation of Joints or Extremities Neurological: Cranial nerves II-XII grossly intact, Neuro grossly intact Psych/Mental Status: Flat Affect Vital Signs Temp Pulse Resp BP Pulse Ox 96.9 F L 77 16 104/62 99 05/01/18 15:17 05/01/18 15:17 05/01/18 15:17 05/01/18 15:17 05/01/18 15:17 Weight: 130 lb Body Mass Index (BMI) 20.9 Laboratory Tests Past 24 Hrs 05/01/18 05/01/18 05/01/18 15:34 15:34 15:45 WBC 7.3 RBC 4.47 Hgb 10.8 L Hct 35.5 L MCV 79.4 L MCH 24.2 L MCHC 30.4 L RDW 14.0 RDW Differential 39.8 Plt Count 193 MPV 10.8 Immature Gran % (Auto) 0.100 Neut % (Auto) 66.3 Lymph % (Auto) 23.8 [place] % (Auto) 8.0 Eos % (Auto) 1.4 Baso % (Auto) 0.4 Absolute Neuts (auto) 4.8 Absolute Lymphs (auto) 1.73 Total Counted Not Reportable Sodium 144 Potassium 4.0 Chloride 111 H Carbon Dioxide 24.0 Anion Gap 9 BUN 15 Creatinine 1.15 H Estim Creat Clear Calc 49.64 Est GFR (MDRD) Af Amer 62 Est GFR (MDRD) Non-Af 51 L BUN/Creatinine Ratio 13.0 Glucose 104 Calcium 8.7 Total Bilirubin 0.30 AST 13 L ALT 17 Alkaline Phosphatase 80 Total Protein 7.1 Albumin 3.7 Globulin 3.4 Albumin/Globulin Ratio 1.1 Urine Color Yellow Urine Clarity Clear Urine pH 6.0 Ur Specific [place] 1.010 Urine Protein Negative Urine Glucose (UA) Normal Urine Ketones Negative Urine Occult Blood Negative Urine Nitrite Negative Urine Bilirubin Negative Urine Urobilinogen Normal Ur Leukocyte Esterase 100 H Urine RBC 0 SEEN Urine WBC 0 SEEN Ur Squamous Epith Cells 0-5 SEEN Urine Bacteria 0 SEEN Urine Mucus 0 SEEN Assessment/Plan All Active Problems Abdominal pain, left lower quadrant (Acute) 1. Acute diverticulitis with diverticular abscess- CT abdomen showed acute diverticulitis of the descending colon with a 1.7 cm diverticular abscess. Small hiatal hernia. Dr. Winston called from ER, will consult. IV ciprofloxacin and IV Flagyl. PRN pain regimen. Clear liquid diet. Zofran as needed for nausea. Afebrile. No leukocytosis. Recommend follow-up with GI/general surgery as outpatient once diverticulitis is resolved for colonoscopy given patient has never had routine colonoscopy. 2. Anxiety/depression-continue Celexa, Klonopin regimen. 3. GERD-continue PPI. 4. 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 DVT prophylaxis-Lovenox subcu This patient was seen by LARRY Dang under the supervision of Dr. Bowman.
[2018-05-01 17:41] VITALS: BMI 21.8
[2018-05-01] MEDS: Ciprofloxacin 400 MG/200 ML BAG 200 MG IV (17:50)
[2018-05-01 17:51] VITALS: BP 115/65; PULSE 78; RESP 15; O2SAT 99
[2018-05-01 18:30] VITALS: BP 103/61; PULSE 65; RESP 16; TEMP 36.8; O2SAT 100
[2018-05-01] MEDS: 0.9% Normal Saline 1,000 ML 100 ML IV (18:57)
[2018-05-01 18:59] VITALS: BMI 21.8
[2018-05-01] MEDS: Morphine 4 MG/ML Syringe IV ×2 (19:14→22:14)
[2018-05-01] MEDS: 0.9% NaCl Peripheral Flush Adult/Peds IV (19:15)
[2018-05-01] MEDS: Pantoprazole Sodium 40 MG Tablet PO (21:28)
[2018-05-01] MEDS: clonazePAM 0.5 MG Tablet PO (21:28)
[2018-05-01 23:00] VITALS: BP 106/56; PULSE 80; RESP 18; TEMP 36.9; O2SAT 96
[2018-05-02] MEDS: Morphine 4 MG/ML Syringe IV (01:25)
[2018-05-02 05:00] VITALS: BP 95/52; PULSE 81; RESP 18; TEMP 37; O2SAT 98
[2018-05-02] MEDS: 0.9% Normal Saline 1,000 ML 100 ML IV ×2 (05:19→17:04)
[2018-05-02 06:03] LABS: Absolute Lymphocyte Count 1.52 X10^3/ul (0.83-4.51); Absolute Neutrophil Count 3.7 X10^3/uL (2.0-7.7); Basophil# 0.02 X10^3/uL; Basophil% 0.3 % (0-1); Eosinophil# 0.07 X10^3/uL; Eosinophils% 1.2 % (0-5); Hematocrit 31.5 % (37-47); Hemoglobin 9.4 g/dl (12.0-15.0); Lymphocyte # 1.52 X10^3/ul (4.0); Lymphocyte % 25.8 % (19-41); Mean Corp Hgb Conc 29.8 g/gl (32-36); Mean Corpuscular Hgb 24.2 pg (27.0-32.0); Mean Platelet Vol. 11.3 fl (6.2-12.0); Monocyte# 0.59 X10^3/uL; Neutrophil # 3.69 X10^3/uL (2.7-7.7); Neutrophil % 62.5 % (47-70); Platelet Count 167 K/mm3 (150-450); RBC Distribution Width CV 13.9 % (11.6-14.6); RBC Distribution Width SD 40.2 fl (35.1-43.9); Red Blood Count 3.89 M/mm3 (4.2-5.4); White Blood Count 5.9 K/mm3 (4.4-11.0)
[2018-05-02 06:06] LABS: POSITIVE COUNT NO; POSITIVE DIFFERENTIAL NO; POSITIVE MORPHOLOGY NO
--- NOTE | 2018-05-02 07:45 | PCM.CONS.B ---
- Consult Date of Consult: 05/02/18 - Reason for Consult Chief Complaint: abdominal pain History of Present Illness: 57 y/o WF presents with left lower quadrant abdominal pain. Started about 2 days ago. had similar presentation about a year ago and was treated for diverticulitis. Described as sharp stabbing pain in left lower quadrant. Has had some loose stools. Has had nausea, no emesis. Denies fevers/chills. states pain was 10 out of 10 on scale of 1-10 with 10 being the worst pain. Presently it is 8 out of 10 when moving, when lying still pain is 5 out of 10. Denies blood in stools. Denies previous colonoscopy. CT scan findings of 1.7 cm diverticular abscess and diverticulitis. PAST MEDICAL HISTORY Abnormal CT of the abdomen 10/10/2015 ? 10/16/09 inflammation cecum and ascending colon consistent with infectious colitis, possibly Chrohn's 07/05/10 soft tissue mass encasing the aorta, iliac and mid distal left ureter suggesting recto- peritoneal fibrosis with obstructive uropathy on left. 05/28/15: mild dilatation intrahepatic biliary ductal system, status post cholecystectomy, common bile duct it at the ampulla level at 1.1 cm, mild splenomegaly, large hiatal hernia, sigmoid diverticulosis with possible stranding indicating diverticulitis, calcified aortic plaques, subcentimeter cyst Lower pole of the right kidney, bulky uterus with leiomyomatous appearance. 07/31/15: CT was similar findings with rectosigmoid junctional narrowing again noted 09/16/15 cortical atrophy noted in the left kidney in addition to continued rectosigmoid junctional narrowing with recommendation for colonoscopy 11/06/15 CT of abdomen was considered normal with exception of leiomyomatous uterus. 06/07/17 umbilical hernia with fat, atrophy of left kidney, borderline spleen, Acute unilateral obstructive uropathy 08/07/2010 Adjustment disorder with depressed mood 12/01/2007 ? September 06, 2017 Treated in the past with Ativan, Klonopin both with improvement over many years. Previous trials with amitriptyline, buspirone, bupropion, paroxetine were unhelpful. Anxiety 08/07/2010 Chronic progressive renal failure, stage 3 (moderate) (HCC) 09/06/2017 ? RENAL FLOWSHEET Latest Ref Rng & Units 07/28/2012 06/04/2015 03/31/2017 CREATININE 0.58 - 0.96 mg/dL 0.93 1.00 1.52 (H) 07/05/10 CT retroperitoneal fibrosis with obstructive uropathy left kidny 09/16/15 CT demonstrated cortical atrophy l kidney COPD (chronic obstructive pulmonary disease) with chronic bronchitis (HCC) 11/12/2011 Diverticulitis of large intestine without perforation or abscess without bleeding 10/10/2015 CT abd/ pel 05/28/15 treated in ED [facility]. Has f/u with Dr. Arthur for EGD and colonoscopy but cancelled and did not follow up. Diverticulitis of sigmoid colon 2015 Dysentery ? Esophageal reflux 12/22/2006 ? Controlled on omeprazole with minimal breakthrough. 2015 failed to complete scheduled EGD. + H. Pylori testing. Iron deficiency anemia 07/29/2012 Neck pain, chronic 01/18/2013 Personal history of unspecified digestive disease ? ? 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 stopped smoking ? PAST?SURGICAL?HISTORY REMOVAL GALLBLADDER ? 1995? Cholecystectomy ? ? ALLERGIES Oxycodone; Amitriptyline; Augmentin [Amoxicillin-Pot Clavulanate]; Codeine; Doxycycline; Egg; Lodine Xl [Etodolac]; Prednisone; Prevacid [Lansoprazole]; Prozac [Fluoxetine Hcl] Medications: celexa omeprazole klonoprin Social history: TOB use denies, quit 6-7 y ago Review of Systems: General - denies fevers, denies weight loss Cardiovascular denies chest pain, denies history of heart attack Pulmonary denies shortness of breath, denies coughing up blood Gastrointestinal as per HPI, has acid reflux, denies blood in stools Neurological has headaches, denies numbness/weakness of extremities, denies seizures Genitourinary has had kidney stones with blood in urine Hematological denies spontaneous/prolonged bleeding, denies history of blood transfusions, denies history of blood clots Skin denies open non healing wounds, Musculoskeletal denies history of fractures, Endocrine denies diabetes Psychological has anxiety issues Physical examination: Vital signs Temp General WD/WN WF in no apparent distress, alert and oriented, not septic appearing HEENT Normocephalic. EOM intact with sclera clear and no icterus noted. Neck is supple with no jugular venous distention noted. Trachea is midline. Lungs clear to auscultation. normal breath sounds No rales/rhonchi/wheezing noted. No labored breathing noted, such as retractions. No cough heard. Heart normal S1 and S2 auscultated. No rubs/clicks/murmurs noted. Normal size and location by auscultation. Abdomen soft but tender in left lower quadrant, when patient is distracted - minimal pain elicited. Normal bowel sounds Extremities no calf tenderness or swelling noted. No pitting edema noted. No obvious deformity noted. Genitourinary/Rectal deferred Skin no rashes noted. Normal skin integrity. Neurological cranial nerves II-XII intact. Normal motor strength in arms and legs. No localized numbness detected. Psychological normal affect, patient is calm and appropriate Impression: diverticulitis with abscess Discussion/Plan: I have discussed the above with the patient. At this point in time, no surgical intervention required. Patient still states that she has 8 out of 10 pain on scale of 1-10 with 10 being worst pain, would keep on clear liquid diet until pain decreases. Continue IV antibiotics as you are doing. Will follow patient with you. I have answered all questions to the patient?s satisfaction and the patient has no further questions.
[2018-05-02 08:00] VITALS: BP 104/65; PULSE 86; RESP 16; TEMP 36.8; O2SAT 100
[2018-05-02] MEDS: 0.9% NaCl Peripheral Flush Adult/Peds IV (08:07)
[2018-05-02] MEDS: Morphine 2 MG/ML Syringe IV (08:07)
[2018-05-02] MEDS: Ciprofloxacin 400 MG/200 ML BAG 200 MG IV ×2 (10:35→21:47)
[2018-05-02] MEDS: clonazePAM 0.5 MG Tablet PO ×2 (10:35→21:49)
[2018-05-02] MEDS: Pantoprazole Sodium 40 MG Tablet PO ×2 (10:35→21:47)
[2018-05-02] MEDS: Citalopram 40 MG TABLET PO (10:35)
--- NOTE | 2018-05-02 12:27 | CASEMGMT ---
RN CM Assessment Presentation: Acute diverticular abscess. Surgical consult, IV cipro and IV flagyl. Intro role of CM and purpose of RN CM assessment. PCP: Saran Gonzalez Specialists: Dr. Winston Preferred Pharmacy: [facility] Insurance:[employer] Prescription Benefit: yes LNOK: Friend listed, [place] Living Arrangements: apartment, no stairs. Pt states she is independent, does not need assist at home. Transportation: Pt drives DME/HHC: denies any ambulatory or oxygen dme. DC PLAN: Home, no needs identified. ABalogh RN CM
--- NOTE | 2018-05-02 13:04 | PCM.PROGNOTE ---
<Marichuy Briggs - Last Filed: 05/02/18 13:15> Subjective: Patient seen and examined. Abdominal pain mildly improved. Continues to have left lower quadrant pain with tenderness to palpation. Denies fever, chills. No other complaints. - Physical Exam General: Alert, Oriented x3, Cooperative HEENT: Atraumatic, PERRLA, EOMI, Normocephalic Neck: Supple, No JVD, Negative Carotid Bruits Lungs: Clear to auscultation, Normal air movement Cardiovascular: Regular rate, Regular Rhythm, Normal S1, Normal S2, No murmurs Abdomen: Bowel Sounds Present, Soft, Non-Distended, Tender - LLQ Extremities: No clubbing, No cyanosis, No edema, Capillary Refill Less than 3 Seconds Skin: No rashes, No breakdown Musculoskeletal: No Tenderness to Palpation of Joints or Extremities Neurological: Cranial nerves II-XII grossly intact, Neuro grossly intact Psych/Mental Status: Flat Affect Vital Signs Temp Pulse Resp BP Pulse Ox 98.2 F 86 16 104/65 100 05/02/18 08:00 05/02/18 08:00 05/02/18 08:00 05/02/18 08:00 05/02/18 08:00 Oxygen Delivery Method Room Air Weight: 135 lb 4 oz Body Mass Index (BMI) 21.8 Intake and Output for Last 24 Hours 04/30/18 05/01/18 05/02/18 23:59 23:59 23:59 Intake Total 2235 / 2235 Balance 2235 / 2235 Laboratory Tests Past 24 Hrs 05/01/18 05/01/18 05/01/18 15:34 15:34 15:45 WBC 7.3 RBC 4.47 Hgb 10.8 L Hct 35.5 L MCV 79.4 L MCH 24.2 L MCHC 30.4 L RDW 14.0 RDW Differential 39.8 Plt Count 193 MPV 10.8 Immature Gran % (Auto) 0.100 Neut % (Auto) 66.3 Lymph % (Auto) 23.8 [place] % (Auto) 8.0 Eos % (Auto) 1.4 Baso % (Auto) 0.4 Absolute Neuts (auto) 4.8 Absolute Lymphs (auto) 1.73 Total Counted Not Reportable Sodium 144 Potassium 4.0 Chloride 111 H Carbon Dioxide 24.0 Anion Gap 9 BUN 15 Creatinine 1.15 H Estim Creat Clear Calc 49.64 Est GFR (MDRD) Af Amer 62 Est GFR (MDRD) Non-Af 51 L BUN/Creatinine Ratio 13.0 Glucose 104 Calcium 8.7 Total Bilirubin 0.30 AST 13 L ALT 17 Alkaline Phosphatase 80 Total Protein 7.1 Albumin 3.7 Globulin 3.4 Albumin/Globulin Ratio 1.1 Urine Color Yellow Urine Clarity Clear Urine pH 6.0 Ur Specific [place] 1.010 Urine Protein Negative Urine Glucose (UA) Normal Urine Ketones Negative Urine Occult Blood Negative Urine Nitrite Negative Urine Bilirubin Negative Urine Urobilinogen Normal Ur Leukocyte Esterase 100 H Urine RBC 0 SEEN Urine WBC 0 SEEN Ur Squamous Epith Cells 0-5 SEEN Urine Bacteria 0 SEEN Urine Mucus 0 SEEN 05/02/18 05:25 WBC 5.9 RBC 3.89 L Hgb 9.4 L Hct 31.5 L MCV 81.0 MCH 24.2 L MCHC 29.8 L RDW 13.9 RDW Differential 40.2 Plt Count 167 MPV 11.3 Immature Gran % (Auto) 0.200 Neut % (Auto) 62.5 Lymph % (Auto) 25.8 [place] % (Auto) 10.0 Eos % (Auto) 1.2 Baso % (Auto) 0.3 Absolute Neuts (auto) 3.7 Absolute Lymphs (auto) 1.52 Total Counted Not Reportable Sodium Potassium Chloride Carbon Dioxide Anion Gap BUN Creatinine Estim Creat Clear Calc Est GFR (MDRD) Af Amer Est GFR (MDRD) Non-Af BUN/Creatinine Ratio Glucose Calcium Total Bilirubin AST ALT Alkaline Phosphatase Total Protein Albumin Globulin Albumin/Globulin Ratio Urine Color Urine Clarity Urine pH Ur Specific [place] Urine Protein Urine Glucose (UA) Urine Ketones Urine Occult Blood Urine Nitrite Urine Bilirubin Urine Urobilinogen Ur Leukocyte Esterase Urine RBC Urine WBC Ur Squamous Epith Cells Urine Bacteria Urine Mucus Medical Necessity - Tobacco Use Smoking Status: Former smoker Assessment/Plan All Active Problems Abdominal pain, left lower quadrant (Acute) 1. Acute diverticulitis with diverticular abscess- CT abdomen showed acute diverticulitis of the descending colon with a 1.7 cm diverticular abscess. Small hiatal hernia. Dr. Winston consulted. At this point no surgical intervention required. IV ciprofloxacin and IV Flagyl. PRN pain regimen. Clear liquid diet. Zofran as needed for nausea. Afebrile. No leukocytosis. Recommend follow-up with GI/general surgery as outpatient once diverticulitis is resolved for colonoscopy given patient has never had routine colonoscopy. 2. Anxiety/depression-continue Celexa, Klonopin regimen. 3. GERD-continue PPI. 4. 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 5. Chronic microcytic anemia- stable, trend CBC. DVT prophylaxis-SCDs This patient was seen by LARRY Dang under the supervision of Dr. Grant. <Ozzy Grant F - Last Filed: 05/02/18 16:08> - Physical Exam Vital Signs Temp Pulse Resp BP Pulse Ox 99.4 F H 80 16 96/60 95 05/02/18 14:35 05/02/18 14:35 05/02/18 14:35 05/02/18 14:35 05/02/18 14:35 Oxygen Delivery Method Room Air Weight: 135 lb 4 oz Body Mass Index (BMI) 21.8 Intake and Output for Last 24 Hours 04/30/18 05/01/18 05/02/18 23:59 23:59 23:59 Intake Total 2235 / 2235 Balance 2235 / 2235 Laboratory Tests Past 24 Hrs 05/01/18 05/02/18 15:45 05:25 WBC 5.9 RBC 3.89 L Hgb 9.4 L Hct 31.5 L MCV 81.0 MCH 24.2 L MCHC 29.8 L RDW 13.9 RDW Differential 40.2 Plt Count 167 MPV 11.3 Immature Gran % (Auto) 0.200 Neut % (Auto) 62.5 Lymph % (Auto) 25.8 [place] % (Auto) 10.0 Eos % (Auto) 1.2 Baso % (Auto) 0.3 Absolute Neuts (auto) 3.7 Absolute Lymphs (auto) 1.52 Total Counted Not Reportable Urine RBC 0 SEEN Urine WBC 0 SEEN Ur Squamous Epith Cells 0-5 SEEN Urine Bacteria 0 SEEN Urine Mucus 0 SEEN Code Visit Addendum: Dr. Grant I personally examined the patient and reviewed the chart. I agree with the above. 57-year-old female presenting with a diverticular abscess. Since it is contained she is currently not an operative candidate and will continue with IV antibiotic therapy. Continue with clears until pain is improved enough to advance her diet. Plan would be that she go home on antibiotic therapy and follow-up with general surgery as an outpatient to discuss the possibility of resection once the inflammation has improved. Inpatient E&M: 39359 Subs Hosp L2
[2018-05-02 14:35] VITALS: BP 96/60; PULSE 80; RESP 16; TEMP 37.4; O2SAT 95
[2018-05-02 16:44] VITALS: BP 97/55; PULSE 79
[2018-05-02] MEDS: Ibuprofen 400 MG Tablet PO ×2 (17:03→22:56)
[2018-05-02 19:39] VITALS: BP 91/48; PULSE 74; RESP 16; TEMP 37; O2SAT 95
[2018-05-02 22:59] VITALS: BP 94/53; PULSE 70; RESP 16; TEMP 36.9; O2SAT 96
[2018-05-03 05:00] VITALS: BP 101/61; PULSE 64; RESP 16; TEMP 37.2; O2SAT 96
[2018-05-03] MEDS: 0.9% NaCl Peripheral Flush Adult/Peds IV ×2 (05:04→08:11)
[2018-05-03] MEDS: 0.9% Normal Saline 1,000 ML 100 ML IV (05:04)
[2018-05-03 05:50] LABS: Hematocrit 29.5 % (37-47); Hemoglobin 8.9 g/dl (12.0-15.0); Mean Corp Hgb Conc 30.2 g/gl (32-36); Mean Corpuscular Hgb 24.1 pg (27.0-32.0); Mean Corpuscular Volume 79.9 fL (81-99); Platelet Count 134 K/mm3 (150-450); RBC Distribution Width SD 40.3 fl (35.1-43.9); Red Blood Count 3.69 M/mm3 (4.2-5.4); White Blood Count 4.4 K/mm3 (4.4-11.0)
[2018-05-03 05:57] LABS: Scan Indicated on CBC? Y/N NO
[2018-05-03 06:04] LABS: Anion Gap 9 (5-15); BUN 10 mg/dL (7-18); BUN/Creat Ratio 9.1 RATIO (10-20); Calcium,Total 7.7 mg/dL (8.5-10.1); Chloride 116 mmol/L (98-107); EST Glomerular Filtration Rate 54 mL/min (>60); Est Glom Filt Rate - Afr Amer 66 mL/min (>60); Estimated Creatinine Clearance 52.19 ml/min; Glucose 115 mg/dL (74-106); Potassium 3.8 mmol/L (3.5-5.1); Sodium Level 147 mmol/L (136-145)
[2018-05-03 08:10] VITALS: BP 116/66; PULSE 59; RESP 16; TEMP 36.6; O2SAT 100
[2018-05-03] MEDS: Morphine 2 MG/ML Syringe IV (08:12)
[2018-05-03] MEDS: Pantoprazole Sodium 40 MG Tablet PO (10:10)
[2018-05-03] MEDS: Citalopram 40 MG TABLET PO (10:10)
[2018-05-03] MEDS: clonazePAM 0.5 MG Tablet PO (10:10)
[2018-05-03] MEDS: Ciprofloxacin 400 MG/200 ML BAG 200 MG IV (10:10)
[2018-05-03 13:17] VITALS: BP 104/49; PULSE 69; RESP 16; TEMP 36.6; O2SAT 97
--- NOTE | 2018-05-03 13:18 | DCINST_ITS ---
- Discharge Diagnoses Current Active Problems: Current Active and Chronic Problems Depression (Chronic) Anxiety (Chronic) You will use the following diet at home:: No restrictions Discharge Activity: Return to Normal Activity Call your doctor if you observe: Fever of 101 or Higher, Uncontrolled pain Allergies/Adverse Reactions: Allergies Egg Derived Adverse Reaction (Verified 05/01/18 18:27) Nausea/Vom/Diarrhea prednisone Adverse Reaction (Verified 05/01/18 18:27) Other Medications to take at Discharge Citalopram [Celexa] 40 mg PO DAILY 06/05/13 Omeprazole [Prilosec] 40 mg PO BID 09/26/14 Clonazepam [Klonopin] 0.5 mg PO BID 09/06/17 Ciprofloxacin [Cipro] 500 mg PO BID #14 tablet 05/03/18 Ibuprofen [Motrin] 400 mg PO Q6H PRN PRN tablet 05/03/18 Metronidazole [Flagyl] 500 mg PO Q8H #21 tablet 05/03/18 The following prescriptions were given: Metronidazole [Flagyl] 500 mg PO Q8H #21 tablet Ciprofloxacin [Cipro] 500 mg PO BID #14 tablet Primary Care Physician: Carol Gonzalez PA [Primary Care Provider] - Please follow up with your Primary Care Physician in: 1 Week Test Results: Test results from this visit will be discussed in further detail at your follow- up appointment, if applicable. Please Follow Up With: Maricruz Winston MD When: Next week, call for appt. Proposed Discharge Date: 05/03/18
--- NOTE | 2018-05-03 13:22 | DS.PCM_ITS ---
<Marichuy Briggs - Last Filed: 05/03/18 13:22> Discharge Date and Diagnosis Date of Admission: 05/01/18 Date of Discharge: 05/03/18 - Primary Discharge Diagnosis 1. Acute diverticulitis with diverticular abscess 2. Anxiety/depression 3. GERD 4. Chronic kidney disease stage II-III 5. Chronic microcytic anemia - Secondary Discharge Diagnosis Chronic Problems Depression (Chronic) Anxiety (Chronic) Hospital Course and Treatment Imaging Results: Diagnostic Data Abdomen/Pelvis CT 05/01/18 15:29 IMPRESSION: 1. Acute diverticulitis of the descending colon with a 1.7 cm diverticular abscess. No free air. 2. Small hiatal hernia. 3. Left renal atrophy. Electronically Signed: Kathrine Horta MD at 16:58 EST Tel , Service support , Dr. Winston- Surgery Operations: None Procedures: None Summary of Care Provided: The patient is a 57 year old F admitted 05/01/18 due to left lower quadrant abdominal pain. 1. Acute diverticulitis with diverticular abscess- CT abdomen showed acute diverticulitis of the descending colon with a 1.7 cm diverticular abscess. Small hiatal hernia. Dr. Winston consulted. No surgical intervention required. IV ciprofloxacin and IV Flagyl during admission with transition to oral Cipro and Flagyl for 1 week at discharge. Afebrile. No leukocytosis. Recommend follow- up with GI/general surgery as outpatient once diverticulitis is resolved for colonoscopy given patient has never had routine colonoscopy. Patient tolerating regular diet at discharge. Abdominal pain improved. Patient will follow up with Dr. Winston next week. 2. Anxiety/depression-continue Celexa, Klonopin regimen. 3. GERD-continue PPI. 4. 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 5. Chronic microcytic anemia- stable. General: Alert, Oriented x3, Cooperative HEENT: Atraumatic, PERRLA, EOMI, Normocephalic Neck: Supple, No JVD, Negative Carotid Bruits Lungs: Clear to auscultation, Normal air movement Cardiovascular: Regular rate, Regular Rhythm, Normal S1, Normal S2, No murmurs Abdomen: Bowel Sounds Present, Soft, Non-Distended, Tender - LLQ improved Extremities: No clubbing, No cyanosis, No edema, Capillary Refill Less than 3 Seconds Skin: No rashes, No breakdown Musculoskeletal: No Tenderness to Palpation of Joints or Extremities Neurological: Cranial nerves II-XII grossly intact, Neuro grossly intact Psych/Mental Status: Flat Affect Patient seen and examined prior to discharge. Physical assessment as noted above. Patient is stable for discharge with follow up recommendations as noted above. This patient was seen by LARRY Dang under the supervision of Dr. Grant. - Physical Exam Vital Signs Temp Pulse Resp BP Pulse Ox 97.8 F 59 L 16 116/66 100 05/03/18 08:10 05/03/18 08:10 05/03/18 08:10 05/03/18 08:10 05/03/18 08:10 Oxygen Delivery Method Room Air Weight: 135 lb 3.987 oz Body Mass Index (BMI) 21.8 Intake and Output for Last 24 Hours 05/01/18 05/02/18 05/03/18 23:59 23:59 23:59 Intake Total 2235 / 2235 2736 / 2736 Balance 2235 / 2235 2736 / 2736 Laboratory Tests Past 24 Hrs 05/03/18 05/03/18 05:25 05:25 WBC 4.4 RBC 3.69 L Hgb 8.9 L Hct 29.5 L MCV 79.9 L MCH 24.1 L MCHC 30.2 L RDW 14.0 RDW Differential 40.3 Plt Count 134 L MPV 11.0 Sodium 147 H Potassium 3.8 Chloride 116 H Carbon Dioxide 22.0 Anion Gap 9 BUN 10 Creatinine 1.10 H Estim Creat Clear Calc 52.19 Est GFR (MDRD) Af Amer 66 Est GFR (MDRD) Non-Af 54 L BUN/Creatinine Ratio 9.1 L Glucose 115 H Calcium 7.7 L Discharge Diet: No Restrictions Discharge Activity: Return to Normal Activity Call your doctor if you observe: Fever of 101 or Higher, Uncontrolled pain Home Medications: Medications to take at Discharge Citalopram [Celexa] 40 mg PO DAILY 06/05/13 Omeprazole [Prilosec] 40 mg PO BID 09/26/14 Clonazepam [Klonopin] 0.5 mg PO BID 09/06/17 Ciprofloxacin [Cipro] 500 mg PO BID #14 tablet 05/03/18 Ibuprofen [Motrin] 400 mg PO Q6H PRN PRN tablet 05/03/18 Metronidazole [Flagyl] 500 mg PO Q8H #21 tablet 05/03/18 Following Prescrptions Were Given to Patient: Metronidazole [Flagyl] 500 mg PO Q8H #21 tablet Ciprofloxacin [Cipro] 500 mg PO BID #14 tablet Primary Care Physician: Carol Gonzalez PA [Primary Care Provider] - Please follow up with your Primary Care Physician in: 1 Week Please Follow Up With: Maricruz Winston MD When: Next week, call for appt. Disposition: Home Minutes spent on discharge:: 35 Patient Condition:: Stable Medical Necessity - Tobacco Use Smoking Status: Former smoker Meaningful Use Info Meaningful Use Diagnoses (Choose all that apply): None applicable <Ozzy Grant F - Last Filed: 05/03/18 14:02> Discharge Date and Diagnosis - Secondary Discharge Diagnosis Chronic Problems Depression (Chronic) Anxiety (Chronic) Hospital Course and Treatment Summary of Care Provided: The patient is a 57 year old F [] - Physical Exam Vital Signs Temp Pulse Resp BP Pulse Ox 97.9 F 69 16 104/49 L 97 05/03/18 13:17 05/03/18 13:17 05/03/18 13:17 05/03/18 13:17 05/03/18 13:17 Oxygen Delivery Method Room Air Weight: 135 lb 3.987 oz Body Mass Index (BMI) 21.8 Intake and Output for Last 24 Hours 05/01/18 05/02/18 05/03/18 23:59 23:59 23:59 Intake Total 2235 / 2235 2736 / 2736 Balance 2235 / 2235 2736 / 2736 Laboratory Tests Past 24 Hrs 05/03/18 05/03/18 05:25 05:25 WBC 4.4 RBC 3.69 L Hgb 8.9 L Hct 29.5 L MCV 79.9 L MCH 24.1 L MCHC 30.2 L RDW 14.0 RDW Differential 40.3 Plt Count 134 L MPV 11.0 Sodium 147 H Potassium 3.8 Chloride 116 H Carbon Dioxide 22.0 Anion Gap 9 BUN 10 Creatinine 1.10 H Estim Creat Clear Calc 52.19 Est GFR (MDRD) Af Amer 66 Est GFR (MDRD) Non-Af 54 L BUN/Creatinine Ratio 9.1 L Glucose 115 H Calcium 7.7 L Code Visit Addendum: Dr. Grant I personally examined the patient and reviewed the chart. I agree with the above. 57-year-old female who presented with a diverticular abscess. She is currently feeling much better much improved and this morning was able to tolerate a regular diet. She stated that she wanted to go home which should be more comfortable. I did discuss with her that she does have an abscess and that she could stay an extra day if she like just to continue with antibiotic therapy and to be monitored, however because she was tolerating a regular diet she felt that she would do okay at home and has set up an appointment with general surgery for next week. We will plan to discharge on Cipro/Flagyl, and recommended that she follow-up with her primary care doctor this week and if she has any issues with either worsening pain or a new fever, she is to return to the hospital. Inpatient E&M: [id number] Disch Hosp
--- NOTE | 2018-05-05 16:56 | CASEMGMT ---
RN CM Discharge Follow-up Phone Call: GAL: Aldo Strata: 4 Call Date: 05/05/18 Discharge Date: 05/03/18 Time of Call: [id number] Duration: 0 ? Admitting Diagnosis: Diverticulitis with abscess This RN CM attempted to contact pt for discharge follow-up. Voicemail received and message left requesting a return call. Tigre Flores RN
== END 2018-05-03 13:43 | disposition home or self-care (01) | DRG 244 ==
LOC: ED 15:35 → MS2 17:38
PROVIDERS: Nurse Practitioner Family; Admitting Provider Internal Medicine; Emergency Provider Emergency Medicine; Family Provider Physician Assistant; PCP Physician Assistant; Referring Provider Internal Medicine; Visit Provider Family Medicine
DX: K57.20 Diverticulitis of large intestine with perforation and abscess without bleeding (principal); K21.9 Gastro-esophageal reflux disease without esophagitis; D50.9 Iron deficiency anemia, unspecified; F41.9 Anxiety disorder, unspecified; F32.9 Major depressive disorder, single episode, unspecified; N18.3 Chronic kidney disease, stage 3 (moderate)
CPT/HCPCS: 36415; 74176; 80048; 80053; 81001; 85025; 85027; 99282; J7030; J7050; A4216; J0744; J2405

== ENCOUNTER 2018-05-30 19:02 | Emergency (ER) | payer MEDICAID, SELFPAY ==
[2018-05-30 19:04] VITALS: BP 136/82; PULSE 84; RESP 19; TEMP 36.6; O2SAT 99; BMI 20.9
--- NOTE | 2018-05-30 19:12 | CT_ITS ---
STUDY: CT ABDOMEN AND PELVIS WITH CONTRAST REASON FOR EXAM: Female, 57 years old. Left lower abdominal pain. RADIATION DOSAGE (If Supplied By Facility): CTDIvol = ( 11.18 ) mGy, DLP = ( 467.00 ) mGycm TECHNIQUE: Transaxial images were obtained from the dome of the diaphragm to the symphysis pubis without oral contrast. Isovue 300 100ML IV was administered. Sagittal and coronal images were reconstructed. Individualized dose optimization techniques were used for this CT. COMPARISON: 05/01/2018. 02/08/2018. FINDINGS: Lung bases are clear. Visualized heart is normal. There is a small hiatal hernia, unchanged compared to the prior study. There is mild intrahepatic biliary duct dilation, unchanged from 2018. The distal common duct measures 1 cm in caliber, within normal limits for a postcholecystectomy patient, and unchanged compared to prior studies. The liver is otherwise unremarkable. The gallbladder is surgically absent. The pancreas is unremarkable. The spleen is mildly enlarged, measuring 14 cm. No significant change from the prior study. The adrenal glands are normal. There is moderate left renal atrophy, unchanged from prior studies. There is mild, chronic right hydronephrosis. No demonstrated renal stones. The proximal ureter is mildly dilated. No obstructing stone is seen. The aorta is normal in caliber. A prominent diverticulum is noted in the proximal descending colon, associated with mild pericolonic stranding. There is no free air or organized collection. The appendix is normal. Urinary bladder is unremarkable. There is trace free fluid in the cul-de-sac. Normal abdominal wall. Normal osseous structures. CT/Abdomen/Pelvis W IV Cont ONLY IMPRESSION: 1. Acute, uncomplicated diverticulitis. 2. Trace free fluid in the cul-de-sac, nonspecific. 3. Small hiatal hernia. 4. Mild, stable intrahepatic and extrahepatic biliary duct dilation. 5. Stable left renal atrophy. 6. Stable mild right hydronephrosis. 7. Mild splenomegaly. Electronically Signed: Kathrine Horta MD at 21:03 EST Tel , Service support ,
[2018-05-30] MEDS: 0.9% Normal Saline 1,000 ML 1000 ML IV (19:39)
[2018-05-30] MEDS: Ondansetron 4 MG/2 ML Vial IV (19:46)
[2018-05-30] MEDS: Morphine 4 MG/ML Syringe IV (19:46)
[2018-05-30 19:57] LABS: Bacteria 0 SEEN /hpf (None Seen); Mucous, Urine 0 SEEN /hpf (<or=2+)
[2018-05-30 19:58] LABS: Color, Urine Yellow (Yellow); Glucose, Dipstick Normal (Normal); Ketone-Dipstick Negative (Negative); Leukocyte Esterase-Dipstick 25 /ul (Negative); Nitrite-Dipstick Negative (Negative); Occult Blood-Urine Negative /ul (Negative); Protein-Dipstick Negative (Negative); Urine Bilirubin Dipstick Negative (Negative); Urine Clarity Clear (Clear); Urine Urobilinogen Normal (Normal)
[2018-05-30 19:59] LABS: Absolute Lymphocyte Count 0.97 X10^3/ul (0.83-4.51); Absolute Neutrophil Count 4.6 X10^3/uL (2.0-7.7); Basophil# 0.02 X10^3/uL; Basophil% 0.3 % (0-1); Eosinophil# 0.03 X10^3/uL; Eosinophils% 0.5 % (0-5); Hematocrit 37.9 % (37-47); Hemoglobin 11.3 g/dl (12.0-15.0); Lymphocyte # 0.97 X10^3/ul (4.0); Mean Corp Hgb Conc 29.8 g/gl (32-36); Mean Corpuscular Hgb 23.4 pg (27.0-32.0); Mean Corpuscular Volume 78.6 fL (81-99); Monocyte# 0.39 X10^3/uL; Monocyte% 6.4 % (0-10); Neutrophil # 4.64 X10^3/uL (2.7-7.7); Neutrophil % 76.6 % (47-70); POSITIVE COUNT NO; POSITIVE DIFFERENTIAL NO; POSITIVE MORPHOLOGY NO; Platelet Count 196 K/mm3 (150-450); RBC Distribution Width CV 14.1 % (11.6-14.6); RBC Distribution Width SD 40.1 fl (35.1-43.9); Red Blood Count 4.82 M/mm3 (4.2-5.4); White Blood Count 6.1 K/mm3 (4.4-11.0)
[2018-05-30 20:06] LABS: Hyaline Cast 0-5 SEEN /lpf (0-5); Squamous Epithelial Cells - UA 0-5 SEEN /hpf (5-10); Transitional Epithelial - Ur 0-5 SEEN /hpf (0-5)
[2018-05-30 20:11] LABS: Red Blood Cells-Urine 0-5 SEEN /hpf (0-5)
[2018-05-30 20:12] LABS: White Blood Cells 0-5 SEEN /hpf (0-5)
[2018-05-30 20:17] LABS: AST(SGOT) 11 U/L (15-37); Alanine Aminotransfer ALT/SGPT 14 U/L (13-56); Albumin, Serum 3.9 g/dL (3.2-5.0); Alkaline Phosphatase 66 U/L (45-117); Anion Gap 5 (5-15); BUN 10 mg/dL (7-18); BUN/Creat Ratio 9.5 RATIO (10-20); Bilirubin, Direct 0.11 mg/dL (0.00-0.30); Calcium,Total 8.6 mg/dL (8.5-10.1); Chloride 110 mmol/L (98-107); Creatinine, Serum 1.05 mg/dL (0.55-1.02); EST Glomerular Filtration Rate 57 mL/min (>60); Est Glom Filt Rate - Afr Amer 69 mL/min (>60); Estimated Creatinine Clearance 54.37 ml/min; Globulin 3.7 g/dL (2.2-4.2); Glucose 87 mg/dL (74-106); Lipase 98 U/L (73-393); Potassium 3.7 mmol/L (3.5-5.1); Protein, Total 7.6 g/dL (6.4-8.2); Sodium Level 140 mmol/L (136-145)
--- NOTE | 2018-05-30 21:39 | ED.DCSUM_ITS ---
- ER Visit Summary Date of Service: 05/30/18 Chief Complaint: Left lower abdominal pain History of Present Illness: The patient is a 57 F with a history of recurrent diverticulitis presenting with left lower quadrant abdominal pain similar to prior diverticulitis. She is nauseated. No vomiting fever. Physical Examination: Vitals are within normal limits. Not in distress. Minimal tenderness left lower quadrant. No rebound or guarding. Test Results: Labs fairly unremarkable. CT scan reveals mild uncomplicated diverticulitis. No evidence of perforation. Emergency Department Course and Treatment: She was given IV fluids, Zofran, and morphine. On reexamination, she is resting comfortable. Feels well. Abdomen is soft and nontender. No vomiting or fever. Treatment Plan: She looks well. Fairly mild case on her CT scan. She would prefer to try going home on antibiotics which I think is safe. She will come back tomorrow if she is any worse or sooner if she has the vomiting or if he develops a fever. She was started on Cipro and Flagyl. Disposition: Home stable Impression: Initial encounter acute uncomplicated sigmoid diverticulitis This note was generated with [employer] dictation software. It may contain incorrect words, spelling, and punctuation that were not noted in review of the chart prior to signing ED Disposition - Plan for ED Patient: Instructions: ED Diverticulitis Prescriptions: Metronidazole [Flagyl] 500 mg PO Q8H 10 Days #30 tablet Ciprofloxacin [Cipro] 500 mg PO BID 10 Days #20 tablet Referrals: Carol Gonzalez PA [Primary Care Provider] - As soon as possible
[2018-05-30] MEDS: metroNIDAZOLE 500 MG Tablet PO (21:52)
[2018-05-30] MEDS: Ciprofloxacin 500 MG Tablet PO (21:52)
[2018-05-30 21:56] VITALS: BP 132/59; PULSE 80; RESP 18; O2SAT 96
== END 2018-05-30 21:57 | disposition home or self-care (01) ==
PROVIDERS: Emergency Provider Emergency Medicine; Family Provider Physician Assistant; PCP Physician Assistant
DX: K57.32 Diverticulitis of large intestine without perforation or abscess without bleeding (principal); Z79.899 Other long term (current) drug therapy
CPT/HCPCS: 74177; 80048; 80076; 81001; 83690; 85025; 96361; 96374; 96375; 99284; J7030; Q9967; J2405

== ENCOUNTER 2018-07-18 19:13 | Emergency (ER) | payer MEDICAID, SELFPAY ==
[2018-07-18 19:13] VITALS: BP 141/85; PULSE 96; RESP 18; TEMP 36.7; O2SAT 97; BMI 22.2
--- NOTE | 2018-07-18 19:23 | CT_ITS ---
STUDY: CT ABDOMEN AND PELVIS WITHOUT CONTRAST REASON FOR EXAM: Female, 57 years old. Left lower quadrant pain RADIATION DOSAGE (If Supplied By Facility): CTDIvol = ( 6.68 ) mGy, DLP = ( 310.26 ) mGycm TECHNIQUE: Transaxial images were obtained from the dome of the diaphragm to the symphysis pubis without oral contrast, and without intravenous contrast. Sagittal and coronal images were reconstructed. Individualized dose optimization techniques were used for this CT. COMPARISON: May 30, 2018 CT abdomen and pelvis FINDINGS: ) Pleural nodularity unchanged posteriorly. The visualized portions of the heart are within normal limits. Normal liver. There are surgical clips in the gallbladder fossa consistent with a prior cholecystectomy. Normal spleen. Normal pancreas. Normal bilateral adrenal glands. Moderate right hydronephrosis unchanged. Moderate left atrophy. Moderate hiatal hernia. Normal small intestine. Normal colon. There is non-visualization of the appendix. Increased stool. Normal abdominal aorta. Normal inferior vena cava. Normal retroperitoneum. Normal urinary bladder. Uterus normal. There is a small umbilical hernia containing fat. Normal osseous structures. CT/Abdomen/Pel W ORAL Cont Only IMPRESSION: No acute disease. Chronic right hydronephrosis. Moderate left renal atrophy. Increased stool. Incidental findings as above. Electronically Signed: Peter Michaels MD at 21:21 EDT , Service support ,
[2018-07-18] MEDS: Ondansetron 4 MG/2 ML Vial IV (19:42)
[2018-07-18 19:43] LABS: Absolute Lymphocyte Count 1.43 X10^3/ul (0.83-4.51); Absolute Neutrophil Count 3.9 X10^3/uL (2.0-7.7); Basophil# 0.04 X10^3/uL; Basophil% 0.7 % (0-1); Eosinophil# 0.03 X10^3/uL; Eosinophils% 0.5 % (0-5); Hematocrit 36.9 % (37-47); Hemoglobin 11.5 g/dl (12.0-15.0); Lymphocyte # 1.43 X10^3/ul (4.0); Lymphocyte % 24.7 % (19-41); Mean Corp Hgb Conc 31.2 g/gl (32-36); Mean Corpuscular Hgb 23.3 pg (27.0-32.0); Mean Corpuscular Volume 74.8 fL (81-99); Mean Platelet Vol. 10.1 fl (6.2-12.0); Monocyte# 0.35 X10^3/uL; Neutrophil # 3.94 X10^3/uL (2.7-7.7); Neutrophil % 67.9 % (47-70); Platelet Count 202 K/mm3 (150-450); RBC Distribution Width CV 15.7 % (11.6-14.6); RBC Distribution Width SD 42.6 fl (35.1-43.9); Red Blood Count 4.93 M/mm3 (4.2-5.4); White Blood Count 5.8 K/mm3 (4.4-11.0)
[2018-07-18 19:44] LABS: POSITIVE COUNT NO; POSITIVE DIFFERENTIAL NO; POSITIVE MORPHOLOGY NO
[2018-07-18 19:55] LABS: Anion Gap 6 (5-15); BUN 12 mg/dL (7-18); BUN/Creat Ratio 10.4 RATIO (10-20); Calcium,Total 8.7 mg/dL (8.5-10.1); Chloride 112 mmol/L (98-107); Creatinine, Serum 1.15 mg/dL (0.55-1.02); EST Glomerular Filtration Rate 51 mL/min (>60); Est Glom Filt Rate - Afr Amer 62 mL/min (>60); Estimated Creatinine Clearance 49.92 ml/min; Glucose 90 mg/dL (74-106); Potassium 4.1 mmol/L (3.5-5.1); Sodium Level 141 mmol/L (136-145)
--- NOTE | 2018-07-18 20:28 | ED.DCSUM_ITS ---
History of Present Illness Chief Complaint: Abd Pain Informant: Patient Onset: Days Context: Sudden Onset Timing: Continuous Quality: Pain Location: Left lower quadrant to midline/suprapubic region Current Severity: Mild Maximum Severity: Moderate Worsened by: Palpation and walking Relieved by: Nothing Narrative: Patient is a middle-aged woman who looks older than reported age. She presents with left lower quadrant pain. She has history of recurrent diverticulitis. She reports pain with walking. She does report nausea without vomiting diarrhea. Last bowel movement yesterday. She denies fever or chills. She denies HEENT, cardiac or respiratory symptoms. She denies dysuria, frequency, urgency or hematuria. She denies trauma. She denies rash. Prior similar symptoms: Yes Recent Illness/Hospitalization: No - Past Medical History (1) History of diverticulitis Status: Acute (2) Abdominal pain, left lower quadrant Status: Acute (3) Anxiety Status: Chronic (4) Depression Status: Chronic Past Medical History - Allergies and Home Meds Allergies/Adverse Reactions: Allergies Egg Derived Adverse Reaction (Verified 05/30/18 19:03) Nausea/Vom/Diarrhea prednisone Adverse Reaction (Verified 05/30/18 19:03) Other Primary Care Physician: Carol Gonzalez PA [Primary Care Provider] - Prior records reviewed: Yes Surgical History: cholecystectomy Lives: Alone Smoking Status: Former smoker Alcohol: None Drugs: None - Family History Maternal Family History: Reports: - - Denies maternal cardiac history. Paternal Family History: Reports: - - Congestive heart failure Review of Systems General: Denies: Chills, Fever, Sweats Eyes: Denies: Visual changes - bilaterally, Diplopia ENT: Denies: Rhinorrhea, Sore throat Cardiovascular: Denies: Chest pain, Palpitations Respiratory: Denies: Dyspnea, Cough, Dyspnea on exertion Gastrointestinal: Reports: Abdominal pain, Nausea. Denies: Vomiting, Diarrhea, Constipation, Melena, Hematochezia, -, - Genitourinary: Denies: Dysuria, Hematuria, Frequency Musculoskeletal: Denies: Back pain, Extremity Pain Skin: Denies: Rash, Wounds Neurological: Denies: Headache, Weakness, Numbness Hematologic: Denies: Easy bruising, Easy bleeding Allergy: Denies: Uticaria, Swelling of the mouth Physical Exam Vital Signs/Narrative: Vital Signs Temp Pulse Resp BP Pulse Ox 07/18/18 19:13 98.1 F 96 18 141/85 H 97 Inital Vital Signs reviewed: Yes General: Well nourished, Well developed, No Acute Distress Head: Normocephalic, Atraumatic Eyes: Perrl, EOMI ENT: Moist mucous membranes, No rhinorrhea Neck: Supple, Nontender Cardiovascular: Regular rate, Regular rhythm, No murmurs Respiratory: No distress, CTA bilaterally, Chest nontender Abdomen: Soft, Nondistended, Normal bowel sounds, No masses, Tender, Guarding, Rebound tenderness, Hypoactive bowel sounds. Negative for: Ventral hernia, Inguinal hernia, Umbilical hernia Rectal: Deferred Back: Nontender, Normal Inspection. Negative for: CVA tenderness, Spinal tenderness Extremities: Nontender, No edema Skin: Normal color, No rash. Negative for: Cyanosis, Jaundice, Rash Neurological: Alert, Oriented x3, Cranial nerves II-XII grossly intact, Normal Strength, Normal Sensation Psychological: Normal affect, Normal Mood Diagnostic/Tx/Re-eval Impressions Abdomen CT 07/18/18 19:23 IMPRESSION: No acute disease. Chronic right hydronephrosis. Moderate left renal atrophy. Increased stool. Incidental findings as above. Electronically Signed: Peter Michaels MD at 21:21 EDT , Service support , 07/18/18 19:23 Abdomen/Pel W ORAL Cont Only [CT] Stat Laboratory Results 07/18/18 07/18/18 19:40 19:40 WBC 5.8 RBC 4.93 Hgb 11.5 L Hct 36.9 L MCV 74.8 L MCH 23.3 L MCHC 31.2 L RDW 15.7 H RDW Differential 42.6 Plt Count 202 MPV 10.1 Immature Gran % (Auto) 0.200 Neut % (Auto) 67.9 Lymph % (Auto) 24.7 [place] % (Auto) 6.0 Eos % (Auto) 0.5 Baso % (Auto) 0.7 Absolute Neuts (auto) 3.9 Absolute Lymphs (auto) 1.43 Total Counted Not Reportable Sodium 141 Potassium 4.1 Chloride 112 H Carbon Dioxide 23.0 Anion Gap 6 BUN 12 Creatinine 1.15 H Estim Creat Clear Calc 49.92 Est GFR (MDRD) Af Amer 62 Est GFR (MDRD) Non-Af 51 L BUN/Creatinine Ratio 10.4 Glucose 90 Calcium 8.7 - Medical Decision Making With left lower quadrant pain guarding and mild rebound tenderness CT of the abdomen with p.o. contrast was ordered. Because she has history of end-stage renal disease IV contrast was not ordered. CBC was obtained to assess white count and H&H. Basic metabolic panel was obtained to assess electrolytes and renal function. Patient states she drove and does not want anything for pain. She did not receive Toradol because of her reported history of renal disease. CT of the abdomen was obtained to assess for diverticulitis versus diverticulosis versus other cause of her left lower quadrant abdominal pain. UA was obtained to assess for atypical urinary tract infection presentation. Patient's workup is unremarkable. There is evidence of increased fecal stasis. This could be the cause of her left lower quadrant abdominal pain. Since her white count is unremarkable and CAT scan is unchanged from prior will discharge to home. ED Disposition - Plan for ED Patient: Disposition: Home or Assisted Living Diagnosis: Acute left lower quadrant pain Instructions: ED Abdominal Pain Unkn Cause, ED Constipation Referrals: Carol Gonzalez PA [Primary Care Provider] - 3-5 Days if not improving
[2018-07-18 21:39] VITALS: BP 142/82; PULSE 80; RESP 16; O2SAT 100
== END 2018-07-18 21:41 | disposition home or self-care (01) ==
PROVIDERS: Emergency Provider Emergency Medicine; Family Provider Physician Assistant; PCP Physician Assistant
DX: R10.32 Left lower quadrant pain (principal); N18.6 End stage renal disease; F41.9 Anxiety disorder, unspecified; F32.9 Major depressive disorder, single episode, unspecified; Z87.891 Personal history of nicotine dependence; Z79.899 Other long term (current) drug therapy
CPT/HCPCS: 74176; 80048; 85025; 96374; 99283; A4216; J2405

== ENCOUNTER 2018-08-05 23:31 | Emergency (ER) | payer MEDICAID, SELFPAY ==
[2018-08-05 23:32] VITALS: BP 124/83; PULSE 83; RESP 16; TEMP 36.4; O2SAT 99; BMI 22.3
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
[2018-08-06] MEDS: Naproxen 500 MG Tablet PO (00:04)
[2018-08-06 00:59] VITALS: BP 130/70; PULSE 80; RESP 16; O2SAT 100
== END 2018-08-06 01:00 | disposition home or self-care (01) ==
PROVIDERS: Emergency Provider Emergency Medicine; Family Provider Physician Assistant; PCP Physician Assistant
DX: S16.1XXA Strain of muscle, fascia and tendon at neck level, initial encounter (principal); R91.1 Solitary pulmonary nodule; V49.40XA Driver injured in collision with unspecified motor vehicles in traffic accident, initial encounter; Y93.9 Activity, unspecified; Y92.9 Unspecified place or not applicable; Z87.19 Personal history of other diseases of the digestive system
CPT/HCPCS: 72125; 99283

== ENCOUNTER 2018-09-16 03:22 | Emergency (ER) | payer MEDICAID, SELFPAY ==
[2018-09-16 03:22] VITALS: BP 155/81; PULSE 103; RESP 16; TEMP 36.7; O2SAT 100; BMI 23.5
--- NOTE | 2018-09-16 03:33 | CT_ITS ---
STUDY: CT ABDOMEN AND PELVIS WITHOUT CONTRAST REASON FOR EXAM: Female, 57 years old. Left lower quadrant pain RADIATION DOSAGE (If Supplied By Facility): CTDIvol = ( 6.83 ) mGy, DLP = ( 322.50 ) mGycm TECHNIQUE: Transaxial images were obtained from the dome of the diaphragm to the symphysis pubis without oral contrast, and without intravenous contrast. Sagittal and coronal images were reconstructed. Individualized dose optimization techniques were used for this CT. COMPARISON: None. FINDINGS: The lung bases are clear. The liver is normal. No dilated intrahepatic biliary radicles. Previous cholecystectomy The spleen is normal. The pancreas is normal. Both adrenals are normal. A 1.1 cm angiomyolipoma in the inferior tip of the right kidney Atrophic left kidney A moderate size hiatal hernia There is no bowel distention, acute appendicitis or diverticulitis. No constricting lesions are seen in large bowel. The abdominal wall is intact with no hernias. There is no ascites or any free intraperitoneal air. No indication of epiploic appendagitis The vascular structures in the retroperitoneum are normal. There is no retrocrural, retroperitoneal or mesenteric adenopathy. The bones and joints are normal. The urinary bladder is normal.--The uterus is normal There is no inguinal or pelvic adenopathy. There is no inguinal hernia. . CT/Abdomen/Pel W ORAL Cont Only IMPRESSION: No acute findings in the abdomen or pelvis. Specifically there is no acute appendicitis or diverticulitis.. An atrophic left kidney. A 1.1 cm angiomyolipoma from the inferior pole of the right kidney. A moderate-sized hiatal hernia. Electronically Signed: Darin Sands MD at 6:04 EDT Tel , Service support ,
[2018-09-16 03:41] LABS: Bacteria 0 SEEN /hpf (None Seen); Mucous, Urine 0 SEEN /hpf (<or=2+); Red Blood Cells-Urine 0 SEEN /hpf (0-5); Squamous Epithelial Cells - UA 0 SEEN /hpf (5-10); White Blood Cells 0 SEEN /hpf (0-5)
[2018-09-16] MEDS: Ondansetron 4 MG/2 ML Vial IV (03:42)
[2018-09-16] MEDS: 0.9% Normal Saline 1,000 ML 1000 ML IV (03:42)
[2018-09-16] MEDS: Morphine 4 MG/ML Syringe IV (03:42)
[2018-09-16 03:43] LABS: Absolute Lymphocyte Count 1.96 X10^3/ul (0.83-4.51); Absolute Neutrophil Count 3.9 X10^3/uL (2.0-7.7); Basophil# 0.04 X10^3/uL; Basophil% 0.6 % (0-1); Eosinophil# 0.09 X10^3/uL; Eosinophils% 1.4 % (0-5); Hematocrit 38.3 % (37-47); Hemoglobin 11.9 g/dl (12.0-15.0); Lymphocyte # 1.96 X10^3/ul (4.0); Lymphocyte % 30.5 % (19-41); Mean Corp Hgb Conc 31.1 g/gl (32-36); Mean Corpuscular Volume 74.1 fL (81-99); Mean Platelet Vol. 10.7 fl (6.2-12.0); Monocyte# 0.48 X10^3/uL; Monocyte% 7.5 % (0-10); Neutrophil # 3.85 X10^3/uL (2.7-7.7); Neutrophil % 59.8 % (47-70); Platelet Count 262 K/mm3 (150-450); RBC Distribution Width SD 40.1 fl (35.1-43.9); Red Blood Count 5.17 M/mm3 (4.2-5.4); White Blood Count 6.4 K/mm3 (4.4-11.0)
[2018-09-16 03:44] LABS: Differential Indicated SCAN CRITERIA MET; POSITIVE COUNT NO; POSITIVE DIFFERENTIAL NO; POSITIVE MORPHOLOGY YES
[2018-09-16 03:46] LABS: Color, Urine Yellow (Yellow); Glucose, Dipstick Normal (Normal); Ketone-Dipstick Negative (Negative); Leukocyte Esterase-Dipstick Negative /ul (Negative); Nitrite-Dipstick Negative (Negative); Occult Blood-Urine Negative /ul (Negative); Protein-Dipstick Negative (Negative); Urine Bilirubin Dipstick Negative (Negative); Urine Clarity Clear (Clear); Urine Urobilinogen Normal (Normal)
[2018-09-16 03:51] LABS: Anion Gap 8 (5-15); BUN 16 mg/dL (7-18); BUN/Creat Ratio 13.2 RATIO (10-20); Calcium,Total 8.8 mg/dL (8.5-10.1); Chloride 111 mmol/L (98-107); Creatinine, Serum 1.21 mg/dL (0.55-1.02); EST Glomerular Filtration Rate 48 mL/min (>60); Est Glom Filt Rate - Afr Amer 59 mL/min (>60); Estimated Creatinine Clearance 47.44 ml/min; Glucose 87 mg/dL (74-106); Sodium Level 144 mmol/L (136-145)
[2018-09-16 04:26] LABS: Anisocytosis RARE; Differential Comment SCAN
[2018-09-16 04:27] LABS: Hypochromasia RARE; Microcytosis RARE
--- NOTE | 2018-09-16 05:19 | ED.DCSUM_ITS ---
- ER Visit Summary Date of Service: 09/16/18 Chief Complaint: Abdominal pain History of Present Illness: The patient is a 57 F who presents with abdominal pain. This began yesterday. She describes it as stabbing. It is in the left lower quadrant and she rates it as severe. She reports nausea as well without vomiting. She reports chills but did not check her temperature at home. No diarrhea. She also reports frequent urination. She has a history of diverticulitis as well as prior pyelonephritis and a history of kidney stones. Physical Examination: Afebrile heart rate 103 vitals otherwise unremarkable Moist mucous membranes Heart regular tachycardia Lungs clear Abdomen soft Patient is tender to palpation in the left lower quadrant without guarding without rebound Alert Test Results: Labs essentially unremarkable. Urinalysis normal. CT the abdomen and pelvis with oral contrast shows no acute findings. Emergency Department Course and Treatment: Patient was treated with IV fluids morphine Zofran. Differential included ureterolithiasis, cystitis/pyelonephritis, diverticulitis. Work-up as above unremarkable. Etiology of the patient's abdominal pain is unclear but she does not appear to have any acute infectious or surgical process. She was advised to follow-up as an outpatient. She understands to return for new or worsening symptoms. She was discharged. Treatment Plan: [] Disposition: Discharge Impression: Abdominal pain This note was generated with [employer] dictation software. It may contain incorrect words, spelling, and punctuation that were not noted in review of the chart prior to signing ED Disposition - Plan for ED Patient: Referrals: Carol Gonzalez PA [Primary Care Provider] -
[2018-09-16 05:25] VITALS: RESP 18
--- NOTE | 2018-09-16 06:09 | ED.DEP ---
ED Disposition - Plan for ED Patient: Instructions: ABDOMINAL PAIN, Unknown Cause, (Female) Referrals: Carol Gonzalez PA [Primary Care Provider] -
[2018-09-16 06:17] VITALS: BP 125/80; PULSE 75; RESP 16; O2SAT 97
== END 2018-09-16 06:19 | disposition home or self-care (01) ==
LOC: ED 04:17
PROVIDERS: Emergency Provider Emergency Medicine; Family Provider Physician Assistant; PCP Physician Assistant
DX: R10.32 Left lower quadrant pain (principal); K21.9 Gastro-esophageal reflux disease without esophagitis; Z87.442 Personal history of urinary calculi; Z87.440 Personal history of urinary (tract) infections; Z79.899 Other long term (current) drug therapy
CPT/HCPCS: 74176; 80048; 81001; 85025; 96361; 96374; 96375; 99284; J7030; A4216; J2405

== ENCOUNTER 2018-09-30 02:17 | Emergency (ER) | payer MEDICAID, SELFPAY ==
[2018-09-30 02:19] VITALS: BP 144/80; PULSE 90; RESP 16; TEMP 36.6; O2SAT 99; BMI 23.3
[2018-09-30 02:38] LABS: Bacteria 0 SEEN /hpf (None Seen); Mucous, Urine 0 SEEN /hpf (<or=2+); Red Blood Cells-Urine 0 SEEN /hpf (0-5); Squamous Epithelial Cells - UA 0 SEEN /hpf (5-10)
[2018-09-30 02:39] LABS: Glucose, Dipstick Normal (Normal); Ketone-Dipstick Negative (Negative); Leukocyte Esterase-Dipstick 500 /ul (Negative); Nitrite-Dipstick Positive (Negative); Occult Blood-Urine 10 /ul (Negative); Protein-Dipstick 15 mg/dl (Negative); Specific Gravity, Urine 1.005 (1.002-1.030); Urine Clarity Sl. Cloudy (Clear); Urine Urobilinogen 8 mg/dl (Normal)
[2018-09-30 02:54] LABS: Color, Urine SEE COMMENT BELOW (Yellow); Urine Bilirubin Dipstick 6 mg/dL (Negative)
[2018-09-30 02:55] LABS: White Blood Cells 10-25 SEEN /hpf (0-5)
--- NOTE | 2018-09-30 03:26 | ED.DCSUM_ITS ---
- ER Visit Summary Date of Service: 09/30/18 Chief Complaint: Urinary problems History of Present Illness: The patient is a 57 F who presents with a few days of urinary symptoms. She complains of urinary urgency, frequency, dysuria. She complains of suprapubic pressure. No fevers. No vomiting. Physical Examination: Afebrile vitals unremarkable No distress Heart regular rate and rhythm Lungs clear Abdomen soft with mild suprapubic tenderness no guarding no rebound Test Results: UA shows 500 leukocyte esterase, positive nitrates, 10-25 WBCs. Emergency Department Course and Treatment: Evaluation consistent with cystitis. She was given first dose of Bactrim and a prescription to complete the course and was discharged home. Treatment Plan: [] Disposition: Discharge Impression: Cystitis This note was generated with [employer] dictation software. It may contain incorrect words, spelling, and punctuation that were not noted in review of the chart prior to signing ED Disposition - Plan for ED Patient: Referrals: Carol Gonzalez PA [Primary Care Provider] -
--- NOTE | 2018-09-30 03:28 | ED.DEP ---
ED Disposition - Plan for ED Patient: Instructions: Bladder Infection, Female (Adult) Prescriptions: Smz/Tmp Ds [Bactrim Ds] 1 tab PO BID #5 tab Prescription Printed Referrals: Carol Gonzalez PA [Primary Care Provider] -
[2018-09-30] MEDS: Smz/Tmp Ds Tablet 1 TABLET PO (03:33)
[2018-09-30 03:34] VITALS: BP 136/98; PULSE 82; RESP 18; O2SAT 100
--- NOTE | 2018-09-30 03:35 | ED.RN ---
THIS NURSE REVIEWED D/C INSTRUCTIONS WITH PT. PT VERBALIZED UNDERSTANDING OF INSTRUCTIONS. PT DENIES FURTHER NEEDS OR QUESTIONS AT THIS TIME. PT AMBULATES FROM ROOM ON OWN WITHOUT ASSISTANCE FROM STAFF
== END 2018-09-30 03:36 | disposition home or self-care (01) ==
LOC: ED 03:32
PROVIDERS: Emergency Provider Emergency Medicine; Family Provider Physician Assistant; PCP Physician Assistant
DX: N30.90 Cystitis, unspecified without hematuria (principal); K21.9 Gastro-esophageal reflux disease without esophagitis; Z79.899 Other long term (current) drug therapy
CPT/HCPCS: 81001; 99283

== ENCOUNTER 2018-11-01 00:31 | Emergency (ER) | payer MEDICAID, SELFPAY ==
[2018-11-01 00:32] VITALS: BP 139/74; PULSE 84; RESP 18; TEMP 36.6; O2SAT 98; BMI 25.7
[2018-11-01 00:36] VITALS: BP 139/74; PULSE 84; RESP 18; TEMP 36.6; O2SAT 98
--- NOTE | 2018-11-01 01:38 | CT_ITS ---
STUDY: CT ABDOMEN AND PELVIS WITHOUT CONTRAST REASON FOR EXAM: Female, 57 years old. Abdominal pain and urinary frequency RADIATION DOSAGE (If Supplied By Facility): CTDIvol = ( 6.80 ) mGy, DLP = ( 320.97 ) mGycm TECHNIQUE: Transaxial images were obtained from the dome of the diaphragm to the symphysis pubis without oral contrast, and without intravenous contrast. Sagittal and coronal images were reconstructed. Individualized dose optimization techniques were used for this CT. COMPARISON: None. FINDINGS: Mild to moderate bibasilar atelectasis versus scar formation. The visualized portions of the heart are within normal limits. Normal liver. Gallbladder is surgically absent. No biliary duct dilatation. Normal spleen. Normal pancreas. Normal bilateral adrenal glands. No renal parenchymal lesion. Mild right-sided hydronephrosis and proximal hydroureter. 2 mm calculus within the distal third of the right ureter. Left renal atrophy. Normal left ureter. Moderate size hiatal hernia. Normal small intestine. The appendix is visualized and appears normal. Mild to moderate diverticular disease of the distal descending and sigmoid colonic segments without localized inflammation. Minimal atherosclerotic calcification of the abdominal vasculature. Normal inferior vena cava. Normal retroperitoneum. Normal urinary bladder. Normal reproductive structures. Abdominal wall is intact. Normal osseous structures. CT/Abdomen/Pelvis without Cont IMPRESSION: 1. 2 mm mid to distal right ureteral calculus with mild proximal right-sided hydroureter nephrosis 2. Left renal atrophy. 3. Distal descending and sigmoid colonic diverticulosis with no evidence of acute diverticulitis. 4. Moderate size hiatal hernia. Electronically Signed: Tejas Johansen MD at 3:10 EDT Tel , Service support ,
[2018-11-01 01:41] LABS: Mucous, Urine 0 SEEN /hpf (<or=2+)
[2018-11-01 01:42] LABS: Color, Urine Yellow (Yellow); Glucose, Dipstick Normal (Normal); Ketone-Dipstick Negative (Negative); Leukocyte Esterase-Dipstick 500 /ul (Negative); Nitrite-Dipstick Negative (Negative); Occult Blood-Urine 10 /ul (Negative); Protein-Dipstick Negative (Negative); Specific Gravity, Urine 1.005 (1.002-1.030); Urine Bilirubin Dipstick Negative (Negative); Urine Clarity Sl. Cloudy (Clear); Urine Urobilinogen Normal (Normal); Urine pH 6.5 (5.0 - 8.0)
[2018-11-01 01:48] LABS: Bacteria 1+ /hpf (None Seen); Red Blood Cells-Urine 0-5 SEEN /hpf (0-5); Squamous Epithelial Cells - UA 0-5 SEEN /hpf (5-10); White Blood Cells 10-25 SEEN /hpf (0-5)
[2018-11-01] MEDS: Ondansetron 4 MG/2 ML Vial IV (02:18)
[2018-11-01] MEDS: 0.9% Normal Saline 1,000 ML 1000 ML IV (02:18)
[2018-11-01] MEDS: Morphine 4 MG/ML Syringe IV (02:18)
[2018-11-01 02:30] LABS: Absolute Lymphocyte Count 2.18 X10^3/uL (0.83-4.51); Basophil# 0.04 X10^3/uL; Basophil% 0.7 % (0-1); Eosinophil# 0.08 X10^3/uL; Eosinophils% 1.4 % (0-5); Hematocrit 34.3 % (37-47); Hemoglobin 10.4 g/dL (12.0-15.0); Lymphocyte # 2.18 X10^3/ul (4.0); Mean Corp Hgb Conc 30.3 g/dL (32-36); Mean Corpuscular Hgb 23.3 pg (27.0-32.0); Mean Corpuscular Volume 76.7 fL (81-99); Mean Platelet Vol. 10.6 fl (6.2-12.0); Monocyte# 0.46 X10^3/uL; NRBC Flagged by Analyzer 0 % (0-5); Neutrophil # 2.96 X10^3/uL (2.7-7.7); Neutrophil % 51.6 % (47-70); Platelet Count 226 K/mm3 (150-450); RBC Distribution Width CV 13.9 % (11.6-14.6); RBC Distribution Width SD 38.4 fl (35.1-43.9); Red Blood Count 4.47 M/mm3 (4.2-5.4); White Blood Count 5.7 K/mm3 (4.4-11.0)
[2018-11-01 02:36] LABS: Anion Gap 5 (5-15); BUN 14 mg/dL (7-18); BUN/Creat Ratio 10.9 RATIO (10-20); Calcium,Total 8.8 mg/dL (8.5-10.1); Chloride 113 mmol/L (98-107); Creatinine, Serum 1.28 mg/dL (0.55-1.02); EST Glomerular Filtration Rate 45 mL/min (>60); Est Glom Filt Rate - Afr Amer 55 mL/min (>60); Estimated Creatinine Clearance 44.85 ml/min; Glucose 90 mg/dL (74-106); Potassium 3.8 mmol/L (3.5-5.1); Sodium Level 143 mmol/L (136-145)
--- NOTE | 2018-11-01 02:38 | ED.DCSUM_ITS ---
- ER Visit Summary Date of Service: 11/01/18 Chief Complaint: Abdominal pain, dysuria History of Present Illness: The patient is a 57 F presenting with abdominal pain, dysuria. She states this started 2 days ago. Patient has pain in her lower abdomen. She also complains of dysuria and urinary frequency. She has nausea with no vomiting. She has had subjective fever. She denies other complaints. Physical Examination: Vitals are stable. Patient is afebrile. Alert no acute distress. HEENT exam is unremarkable. Neck is supple. Lungs are clear and equal bilaterally. Heart is regular rate and rhythm. Abdomen is soft suprapubic, left lower quadrant tenderness with no rebound or guarding Back: Nontender Extremities are unremarkable. Skin is warm and dry. No focal neurologic deficit. Remainder of exam is unremarkable. Emergency Department Course and Treatment: Patient was given morphine, Zofran, IV fluids. Urinalysis shows 10-25 white blood cells, 0-5 red blood cells. Urine culture was sent. CBC normal except hemoglobin 10.4. Chemistries show creatinine 1.28. CT flank shows 2 mm mid to distal right ureteral calculus with mild proximal right-sided hydroureter nephrosis. Left renal atrophy. Distal descending and sigmoid colonic diverticulosis with no evidence of acute diverticulitis. Moderate size hiatal hernia. Patient is feeling improved and is requesting discharge. She is given Keflex and a prescription for Keflex. Discussed with Dr. Kelly and patient will follow-up as an outpatient. Advised to return to the ED for worsening complaints. Disposition: Discharge home Impression: UTI, urolithiasis This note was generated with [employer] dictation software. It may contain incorrect words, spelling, and punctuation that were not noted in review of the chart pr ior to signing ED Disposition - Plan for ED Patient: Referrals: Carol Gonzalez PA [Primary Care Provider] -
[2018-11-01 04:16] VITALS: BP 114/72; PULSE 67; RESP 14; O2SAT 100
--- NOTE | 2018-11-01 06:41 | ED.DEP ---
ED Disposition - Plan for ED Patient: Instructions: KIDNEY STONE w/ Colic, Understanding Urinary Tract Infections (UTIs) Prescriptions: Cephalexin [Keflex] 500 mg PO Q6 #40 capsule Referrals: Carol Gonzalez PA [Primary Care Provider] - Lalo Kelly MD [STAFF PHYSICIAN] -
[2018-11-01 06:49] VITALS: BP 131/74; PULSE 66; RESP 15; O2SAT 98
[2018-11-01] MEDS: Cephalexin 250 MG Capsule 500 MG PO (07:48)
== END 2018-11-01 07:48 | disposition home or self-care (01) ==
LOC: ED 01:29
PROVIDERS: Emergency Provider Emergency Medicine; Family Provider Physician Assistant; PCP Physician Assistant
DX: N13.2 Hydronephrosis with renal and ureteral calculous obstruction (principal); N39.0 Urinary tract infection, site not specified; K57.30 Diverticulosis of large intestine without perforation or abscess without bleeding; K44.9 Diaphragmatic hernia without obstruction or gangrene; K21.9 Gastro-esophageal reflux disease without esophagitis; F32.9 Major depressive disorder, single episode, unspecified; Z79.899 Other long term (current) drug therapy
CPT/HCPCS: 74176; 80048; 81001; 85025; 87086; 87088; 87186; 96361; 96374; 96375; 99285; J7030; A4216; J2405

== ENCOUNTER 2018-11-07 01:08 | Emergency (ER) | payer MEDICAID, SELFPAY ==
[2018-11-07 01:09] VITALS: BP 141/80; PULSE 80; RESP 18; TEMP 36.8; O2SAT 99; BMI 23.0
[2018-11-07 01:12] VITALS: BP 141/80; PULSE 80; RESP 18; O2SAT 100
[2018-11-07 01:14] VITALS: TEMP 36.8
--- NOTE | 2018-11-07 01:47 | RAD_ITS ---
STUDY: X-RAY - ABDOMEN/PELVIS REASON FOR EXAM: Female, 57 years old. Kidney stone. TECHNIQUE: AP supine abdomen. COMPARISON: None. FINDINGS: Normal visualized lung bases. There is an unremarkable bowel gas pattern. There is no demonstrated free abdominal air. The visualized liver, spleen and kidneys are grossly normal in size and morphology. Normal soft tissue structures. Normal visualized osseous structures. Surgical clips right upper quadrant. RAD/Abdomen Single View IMPRESSION: Normal x-ray examination of the abdomen and pelvis. No pathologic calcifications identified. Electronically Signed: Simon Perez MD at 2:29 EDT , Service support ,
[2018-11-07 01:53] LABS: Mucous, Urine 0 SEEN /hpf (<or=2+)
[2018-11-07] MEDS: proMETHazine 25 MG/ML Syringe 12.5 MG IV (01:55)
[2018-11-07] MEDS: Ketorolac 30 MG/ML Syringe IV (01:55)
[2018-11-07] MEDS: 0.9% Normal Saline 1,000 ML 999 ML IV (01:55)
[2018-11-07 01:56] LABS: Absolute Lymphocyte Count 1.65 X10^3/uL (0.83-4.51); Absolute Neutrophil Count 3.3 X10^3/uL (2.0-7.7); Basophil# 0.04 X10^3/uL; Basophil% 0.7 % (0-1); Eosinophil# 0.04 X10^3/uL; Eosinophils% 0.7 % (0-5); Hematocrit 36.3 % (37-47); Hemoglobin 11.2 g/dL (12.0-15.0); Lymphocyte # 1.65 X10^3/ul (4.0); Lymphocyte % 30.4 % (19-41); Mean Corp Hgb Conc 30.9 g/dL (32-36); Mean Corpuscular Hgb 23.5 pg (27.0-32.0); Mean Corpuscular Volume 76.1 fL (81-99); Mean Platelet Vol. 11.1 fl (6.2-12.0); Monocyte# 0.35 X10^3/uL; Monocyte% 6.4 % (0-10); NRBC Flagged by Analyzer 0 % (0-5); Neutrophil # 3.33 X10^3/uL (2.7-7.7); Neutrophil % 61.4 % (47-70); Platelet Count 244 K/mm3 (150-450); RBC Distribution Width CV 13.8 % (11.6-14.6); RBC Distribution Width SD 37.5 fl (35.1-43.9); Red Blood Count 4.77 M/mm3 (4.2-5.4); White Blood Count 5.4 K/mm3 (4.4-11.0)
[2018-11-07 02:00] LABS: Color, Urine Yellow (Yellow); Glucose, Dipstick Normal (Normal); Ketone-Dipstick Negative (Negative); Leukocyte Esterase-Dipstick 25 /ul (Negative); Nitrite-Dipstick Negative (Negative); Occult Blood-Urine 10 /ul (Negative); Protein-Dipstick 15 mg/dl (Negative); Urine Bilirubin Dipstick Negative (Negative); Urine Clarity Clear (Clear); Urine Urobilinogen Normal (Normal)
[2018-11-07 02:04] LABS: Anion Gap 4 (5-15); BUN 17 mg/dL (7-18); BUN/Creat Ratio 12.8 RATIO (10-20); Calcium,Total 8.7 mg/dL (8.5-10.1); Chloride 111 mmol/L (98-107); Creatinine, Serum 1.33 mg/dL (0.55-1.02); EST Glomerular Filtration Rate 43 mL/min (>60); Est Glom Filt Rate - Afr Amer 53 mL/min (>60); Estimated Creatinine Clearance 43.16 ml/min; Glucose 109 mg/dL (74-106); Potassium 3.6 mmol/L (3.5-5.1); Sodium Level 140 mmol/L (136-145)
[2018-11-07 02:07] LABS: Bacteria RARE /hpf (None Seen); Red Blood Cells-Urine 0-5 SEEN /hpf (0-5); Squamous Epithelial Cells - UA 0-5 SEEN /hpf (5-10); White Blood Cells 0-5 SEEN /hpf (0-5)
--- NOTE | 2018-11-07 02:36 | ED.VISSUMM ---
- ER Visit Summary Date of Service: 11/07/18 Chief Complaint: Abdominal pain and flank pain History of Present Illness: The patient is a 57 F who presents with abdominal and flank pain. 6 days ago she was seen in the emergency department with right-sided flank pain. She was diagnosed with a distal ureteral calculus and UTI. She was sent home on Keflex. She complains of pain on both sides both flanks now. She also complains of lower abdominal pain. She developed nausea and vomiting tonight. She is had diarrhea for about 2 days. No fevers chest pain shortness of breath. She is scheduled to see urology in a couple of weeks. Physical Examination: Afebrile vitals unremarkable Moist mucous membranes Heart regular rate and rhythm Lungs clear Abdomen soft with suprapubic abdominal tenderness no guarding no rebound No flank or CVA tenderness Alert Test Results: CBC BMP urinalysis unremarkable. KUB normal. Emergency Department Course and Treatment: Patient labs are unremarkable. UA does not show evidence of ongoing infection. Her urine culture was reviewed and showed E. coli which was pansensitive so Keflex should have resolved this which is supported by her current urinalysis. She does not have leukocytosis. Her renal function is at baseline. Her KUB does not show any pathologic calcifications. While it is still possible she still has a distal ureteral calculus given that her renal function is at baseline and she has no evidence of infection and her symptoms are controlled I do not feel she requires hospitalization at this time. She will be given a prescription for short course of analgesics. She was advised to contact urology to try to arrange for close outpatient follow-up. She understands return for new or worsening symptoms. She was instructed on specific signs and symptoms to monitor for. Treatment Plan: [] Disposition: Discharge Impression: Abdominal pain This note was generated with [employer] dictation software. It may contain incorrect words, spelling, and punctuation that were not noted in review of the chart prior to signing ED Disposition - Plan for ED Patient: Referrals: Carol Gonzalez PA [Primary Care Provider] -
--- NOTE | 2018-11-07 02:40 | ED.DEP ---
ED Disposition - Plan for ED Patient: Instructions: KIDNEY STONE w/ Colic Prescriptions: Oxycodone HCl/Acetaminophen [Percocet 5/325] 1 tab PO Q6H PRN PRN 3 Days #12 tab PRN Reason: Pain Prescription Printed Ondansetron [Zofran Odt] 4 mg PO Q8H PRN PRN #10 tab PRN Reason: Nausea Prescription Printed Referrals: Carol Gonzalez PA [Primary Care Provider] - Lalo Kelly MD [STAFF PHYSICIAN] -
[2018-11-07 02:58] VITALS: BP 135/70; PULSE 78; RESP 16; O2SAT 98
== END 2018-11-07 03:00 | disposition home or self-care (01) ==
PROVIDERS: Emergency Provider Emergency Medicine; Family Provider Physician Assistant; PCP Physician Assistant
DX: R10.30 Lower abdominal pain, unspecified (principal)
CPT/HCPCS: 74018; 80048; 81001; 85025; 96361; 96374; 96375; 99283; J7030; A4216

== ENCOUNTER 2018-11-25 09:14 | Emergency (ER) | payer MEDICAID, SELFPAY ==
[2018-11-25 09:14] VITALS: BP 128/75; PULSE 65; RESP 17; TEMP 36.3; O2SAT 100; BMI 22.6
--- NOTE | 2018-11-25 09:23 | US_ITS ---
STUDY: RENAL ULTRASOUND - COMPLETE REASON FOR EXAM: Female, 57 years old. Right flank pain. TECHNIQUE: Ultrasound evaluation of the kidneys was performed with real-time and static ley-scale imaging. COMPARISON: None. FINDINGS: RIGHT KIDNEY: Normal location of the right kidney, which is normal in size. The right kidney measures 11.0 cm x 5.2 cm x 4.3 cm. There is a normal cortex of the right kidney. The renal cortex measures 1.1 cm. There is no right renal mass or cyst. There are no right renal calculi. There is no right hydronephrosis. DISTAL RIGHT URETER: There is non-visualization of the distal right ureter. There is no demonstrated right ureterovesical junction calculus. There is a visualized right ureteral jet. LEFT KIDNEY: Normal location of the left kidney, which is normal in size. The left kidney measures 10.0 cm x 4.4 cm x 3.3 cm. There is diffuse thinning of the renal cortex. The renal cortex measures 0.7 cm. There is no left renal mass or cyst. There are no left renal calculi. There is no left hydronephrosis. DISTAL LEFT URETER: There is non-visualization of the distal left ureter. There is no demonstrated left ureterovesical junction calculus. There is a visualized left ureteral jet. BLADDER: The bladder was only partially filled. This limits the evaluation. US/Kidney and Bladder IMPRESSION: Mild degree of cortical thinning of the left kidney. No other abnormality is seen. Electronically Signed: Gerhard Riggs, at 10:38 EDT , Service support ,
--- NOTE | 2018-11-25 09:24 | ED.DCSUM_ITS ---
- ER Visit Summary Date of Service: 11/25/18 Chief Complaint: Right flank and abdominal pain History of Present Illness: The patient is a 57 F who has right flank and abdominal pain. Is been ongoing for 3 weeks. She was diagnosed with a 2 mm kidney stone causing some mild hydronephrosis on November 01. She has been trying ibuprofen and Tylenol at home without any relief currently. She did vomit last night. She denies any dysuria or hematuria. She does have a history of kidney stones in the past. She has not seen a urologist for this. She did have a repeat ER visit after this and a KUB revealed no pathological calcifications at that time. Physical Examination: Vital signs reviewed. HEENT exam unremarkable. Heart is regular rate and rhythm without murmurs. Lungs are clear to auscultation. Abdomen is soft with mild right-sided tenderness. Back exam reveals no tendern ess with no CVA tenderness. Extremities reveal no edema. Skin exam normal. Neurologic exam normal. Test Results: Hemoglobin 10.6, creatinine 1.15. Chloride 114. Urinalysis has 1+ leukocytes with 0-5 white blood cells. There are 0 red blood cells. Renal ultrasound reveals no hydronephrosis or calculus. Emergency Department Course and Treatment: Patient was given Toradol, saline and Zofran. Upon reevaluation she is symptomatically improved. She did have hydronephrosis on her CAT scan but has none today. They do not see any calculi on today's ultrasound. My feeling is that her calculus has passed as it was only 2 mm in size at that time. I will treat her with NSAIDs at home. I will give her urology follow-up. Treatment Plan: [] Disposition: Discharge Impression: Right flank pain This note was generated with [employer] dictation software. It may contain incorrect words, spelling, and punctuation that were not noted in review of the chart prior to signing ED Disposition - Plan for ED Patient: Referrals: Carol Gonzalez PA [Primary Care Provider] -
[2018-11-25] MEDS: 0.9% Normal Saline 1,000 ML 999 ML IV (09:36)
[2018-11-25] MEDS: Ondansetron 4 MG/2 ML Vial IV (09:37)
[2018-11-25] MEDS: Ketorolac 30 MG/ML Syringe IV (09:38)
[2018-11-25 09:43] LABS: Bacteria 0 SEEN /hpf (None Seen); Mucous, Urine 0 SEEN /hpf (<or=2+); Red Blood Cells-Urine 0 SEEN /hpf (0-5); Squamous Epithelial Cells - UA 0 SEEN /hpf (5-10)
[2018-11-25 09:48] LABS: Color, Urine Yellow (Yellow); Glucose, Dipstick Normal (Normal); Ketone-Dipstick Negative (Negative); Leukocyte Esterase-Dipstick 100 /ul (Negative); Nitrite-Dipstick Negative (Negative); Occult Blood-Urine Negative /ul (Negative); Protein-Dipstick Negative (Negative); Specific Gravity, Urine 1.015 (1.002-1.030); Urine Bilirubin Dipstick Negative (Negative); Urine Clarity Clear (Clear); Urine Urobilinogen Normal (Normal)
[2018-11-25 09:54] LABS: Absolute Lymphocyte Count 2.03 X10^3/uL (0.83-4.51); Absolute Neutrophil Count 2.4 X10^3/uL (2.0-7.7); Basophil# 0.03 X10^3/uL; Basophil% 0.6 % (0-1); Eosinophil# 0.12 X10^3/uL; Eosinophils% 2.4 % (0-5); Hematocrit 35.7 % (37-47); Hemoglobin 10.6 g/dL (12.0-15.0); Lymphocyte # 2.03 X10^3/ul (4.0); Lymphocyte % 40.4 % (19-41); Mean Corp Hgb Conc 29.7 g/dL (32-36); Mean Corpuscular Volume 77.6 fL (81-99); Mean Platelet Vol. 11.5 fl (6.2-12.0); Monocyte# 0.44 X10^3/uL; Monocyte% 8.7 % (0-10); NRBC Flagged by Analyzer 0 % (0-5); Neutrophil % 47.7 % (47-70); Platelet Count 200 K/mm3 (150-450); RBC Distribution Width SD 39.4 fl (35.1-43.9)
[2018-11-25 10:01] LABS: Anion Gap 6 (5-15); BUN 19 mg/dL (7-18); BUN/Creat Ratio 16.5 RATIO (10-20); Calcium,Total 8.8 mg/dL (8.5-10.1); Chloride 114 mmol/L (98-107); Creatinine, Serum 1.15 mg/dL (0.55-1.02); EST Glomerular Filtration Rate 51 mL/min (>60); Est Glom Filt Rate - Afr Amer 62 mL/min (>60); Estimated Creatinine Clearance 49.92 ml/min; Glucose 80 mg/dL (74-106); Potassium 3.6 mmol/L (3.5-5.1); Sodium Level 145 mmol/L (136-145)
[2018-11-25 10:02] LABS: White Blood Cells 0-5 SEEN /hpf (0-5)
--- NOTE | 2018-11-25 10:51 | ED.DEP ---
ED Disposition - Plan for ED Patient: Disposition: Home or Assisted Living Instructions: FLANK PAIN, Uncertain Cause Prescriptions: Naproxen [Naprosyn] 500 mg PO BID PRN #20 tab Prescription Printed Referrals: Carol Gonzalez PA [Primary Care Provider] - Lalo Kelly MD [STAFF PHYSICIAN] -
[2018-11-25 11:07] VITALS: BP 133/78; PULSE 72; RESP 18; O2SAT 100
== END 2018-11-25 11:07 | disposition home or self-care (01) ==
PROVIDERS: Emergency Provider Emergency Medicine; Family Provider Physician Assistant; PCP Physician Assistant
DX: R10.9 Unspecified abdominal pain (principal); K21.9 Gastro-esophageal reflux disease without esophagitis; F32.9 Major depressive disorder, single episode, unspecified; Z87.442 Personal history of urinary calculi; Z79.899 Other long term (current) drug therapy
CPT/HCPCS: 76770; 80048; 81001; 85025; 96361; 96374; 96375; 99284; J7030; A4216; J2405

== ENCOUNTER 2019-02-28 00:58 | Emergency (ER) | payer MEDICAID, SELFPAY ==
[2019-02-28 00:58] VITALS: BP 152/86; PULSE 79; RESP 16; TEMP 36.4; O2SAT 99; BMI 26.2
--- NOTE | 2019-02-28 01:19 | CT_ITS ---
HISTORY: Fall. No loss of consciousness. Technique: Contiguous helical images were obtained through the brain. 2-D reformats were performed on the acquisition scanner. Most recent comparison CT scan of the brain is from July 30, 2017. 230 images. Findings: Brain volume is near normal with minimal atrophy. Within the deep white matter of the right frontal lobe, lateral to the caudate nucleus, there is a 15 mm area of more focal decreased density that extends down into the anterior limb of the right internal capsule and the genu of the internal capsule. This was present on the previous study, and is not acute. No acute intracranial hemorrhage CT/Brain/Head without Contrast IMPRESSION: No acute disease perceived. Old area likely of ischemia about the right basal ganglia and deep white matter. Individualized dose optimization techniques were used for this CT. at 0209 Reported and signed by: Avery Nguyen MD Electronically Signed: Avery Nguyen MD at 2:08 EST Tel , Service support ,
--- NOTE | 2019-02-28 01:19 | RAD_ITS ---
HISTORY: FELLC/O LT SHOULDER /CLAVICLE PAIN EXAM: XR Chest 2 Views: COMPARISON: October 02, 2017 FINDINGS: # of images incl. paperwork: 2 The left-sided marker is placed directly over the left acromioclavicular joint, therefore, it is not completely evaluated. No pathology is perceived within the left clavicle or shoulder Lungs are clear. Heart is not enlarged. Scoliosis remains mild. Cholecystectomy clips. Pulmonary vascularity is distinct. No effusions. RAD/Chest PA and Lateral IMPRESSION: No acute disease perceived. Left shoulder marker placed directly over the left acromioclavicular joint obscuring its evaluation. at 0217 Reported and signed by: Avery Nguyen MD Electronically Signed: Avery Nguyen MD at 2:16 EST Tel , Service support ,
--- NOTE | 2019-02-28 01:19 | CT_ITS ---
HISTORY: FALL. No LOC. Pain left shoulder,neck and face TECHNIQUE: Helically acquired images were obtained of the cervical spine without contrast. 2D reformatted images were reviewed. A radiation dose optimization technique was used for this scan. COMPARISON: Of the patient's 46 previous radiological exams at this institution, the most recent CT scan of the cervical spine from August 05, 2018, CT scan of the cervical spine from July 30, 2017, Findings: # of images incl. paperwork: 392 Vertebral body height is fairly well-preserved. C5 demonstrates a mild loss of height. Degenerative malalignment is present. Disc degenerative malalignment is due to degenerative disc disease. Degenerative disc disease is greatest at theC5-C6 level. This disease is manifested by loss of disc height, endplate sclerosis, and anterior and posterior enthesophytes. Facets are well aligned with arthropathy. Prevertebral and paraspinal soft tissues are normal. No bones are fractured. Visualized portions of the mastoid air cells are free of disease. CT/Spine Cervical without Contras IMPRESSION: Multilevel degenerative disc disease without acute fracture or traumatic subluxation. Individualized dose optimization techniques were used for this CT. at 0213 Reported and signed by: Avery Nguyen MD Electronically Signed: Avery Nguyen MD at 2:12 EST Tel , Service support ,
--- NOTE | 2019-02-28 01:19 | CT_ITS ---
HISTORY: FALL. No LOC. Pain left shoulder,neck and face TECHNIQUE: Helically acquired images were obtained of the facial bones without intravenous contrast. A radiation dose optimization technique was used for this scan. COMPARISON: None FINDINGS: # of images incl. paperwork: 380 Paranasal sinuses are clear. Mastoid air cells are free of disease. No fractures are present. Orbits and globes are normal. Visualized portions of the upper cervical spine are normal. . CT/Sinus/Facial Bone IMPRESSION: The patient is edentulous. A tiny mucuo-serous retention cyst is present within the inferior aspect of the right maxillary sinus. Atherosclerotic plaque within the cavernous sinus portions of both left and right ICA. Individualized dose optimization techniques were used for this CT. at 0215 Reported and signed by: Avery Nguyen MD Electronically Signed: Avery Nguyen MD at 2:13 EST Tel , Service support ,
[2019-02-28] MEDS: HYDROcodone Bitartrate/Apap 5/325 Tablet PO (01:24)
[2019-02-28 01:27] VITALS: RESP 16
--- NOTE | 2019-02-28 02:23 | ED.VISSUMM ---
- ER Visit Summary Date of Service: 02/28/19 Chief Complaint: Fall History of Present Illness: The patient is a 58 F who sustained a mechanical fall when taking off her slippers. She landed on her left side. She did not lose consciousness. She complains of pain to her left face, left neck, and left upper chest and shoulder region. Worse with movement. Nothing seems to make it better. She is not on blood thinners. She denies weakness, numbness, or other neurologic symptoms. Denies any other injuries or complaints. Physical Examination: Afebrile and vital signs are unremarkable. Head and neck normal inspection. She does have left maxillary tenderness as well as tenderness to the left side of her neck. Heart regular. Lungs clear. Left upper chest wall tender to palpation diffusely extending into the left shoulder region and left upper back. She is neurovascular intact distally. Good range of motion. No deformity. No point tenderness. Skin appears normal. The remainder of her exam is atraumatic and unremarkable. Test Results: CT of her brain, face, cervical spine show chronic changes. Nothing acute. No fracture or bleeding. Chest x-ray shows nothing acute. Emergency Department Course and Treatment: Patient was treated with [place] while awaiting results. Imaging showed chronic changes. Nothing acute. The left AC joint was obscured in the x-ray, but she had no tenderness to this point. I have no suspicion for AC joint separation or other pathology there. Patient will be discharged home. Rest and ice. Gnog-hmi-gefjuig remedies for pain. Follow-up with primary care. Return right away for any new or worsening issues. Treatment Plan: As above Disposition: Discharge Impression: 1. Mechanical fall 2. Face contusion 3. Cervical strain 4. Left chest wall pain This note was generated with [employer] dictation software. It may contain incorrect words, spelling, and punctuation that were not noted in review of the chart prior to signing ED Disposition - Plan for ED Patient: Referrals: Carol Gonzalez PA [Primary Care Provider] -
--- NOTE | 2019-02-28 02:26 | ED.DEP ---
ED Disposition - Plan for ED Patient: Instructions: FALL, Mechanical Referrals: Carol Gonzalez PA [Primary Care Provider] -
[2019-02-28 02:31] VITALS: BP 132/72; PULSE 68; RESP 16; O2SAT 98
== END 2019-02-28 02:35 | disposition home or self-care (01) ==
LOC: ED 01:24
PROVIDERS: Emergency Provider Emergency Medicine; Family Provider Physician Assistant; PCP Physician Assistant
DX: S16.1XXA Strain of muscle, fascia and tendon at neck level, initial encounter (principal); R07.89 Other chest pain; S00.83XA Contusion of other part of head, initial encounter; F41.9 Anxiety disorder, unspecified; F32.9 Major depressive disorder, single episode, unspecified; Z79.899 Other long term (current) drug therapy; W18.30XA Fall on same level, unspecified, initial encounter; Y93.89 Activity, other specified; Y92.009 Unspecified place in unspecified non-institutional (private) residence as the place of occurrence of the external cause; Y99.8 Other external cause status
CPT/HCPCS: 70450; 70486; 71046; 72125; 99283

== ENCOUNTER 2019-04-04 18:36 | Emergency (ER) | payer MEDICAID, SELFPAY ==
[2019-04-04 18:37] VITALS: BP 145/104; PULSE 91; RESP 16; TEMP 36.9; O2SAT 99; BMI 24.2
--- NOTE | 2019-04-04 18:56 | ED.RN ---
PT LEFT WITHOUT BEING SEEN.
== END 2019-04-04 18:56 | disposition left against medical advice (07) ==
LOC: ED 19:02
PROVIDERS: Emergency Provider Emergency Medicine; Family Provider Physician Assistant; PCP Physician Assistant
DX: F41.9 Anxiety disorder, unspecified (principal)

== ENCOUNTER 2019-11-08 18:23 | Emergency (ER) | payer MEDICAID, SELFPAY ==
[2019-11-08 18:24] VITALS: BP 140/76; PULSE 111; RESP 18; TEMP 37; O2SAT 97; BMI 24.0
--- NOTE | 2019-11-08 18:48 | CT_ITS ---
STUDY: CT ABDOMEN AND PELVIS WITH CONTRAST REASON FOR EXAM: Female, 58 years old. LEFT LOWER ABD PAIN WITH NAUSEA, EMESIS, GETTING WORSE, HX DIVERTICULITIS RADIATION DOSAGE (If Supplied By Facility): CTDIvol = ( 12.24 ) mGy, DLP = ( 693.75 ) mGycm TECHNIQUE: Transaxial images were obtained from the dome of the diaphragm to the symphysis pubis with oral contrast. Was administered. Sagittal and coronal images were reconstructed. Individualized dose optimization techniques were used for this CT. COMPARISON: 11/01/2018. FINDINGS: The visualized lung bases are unremarkable. The visualized portions of the heart are within normal limits. Liver is normal in size. Stable moderate intrahepatic bile duct distention. There are surgical clips in the gallbladder fossa consistent with a prior cholecystectomy. There is mild splenomegaly. Normal pancreas. Normal bilateral adrenal glands. Normal right kidney with extrarenal pelvis. Stable 1.4 cm complicated lower pole cyst. Stable diffuse atrophy of the left kidney. There is a moderate hiatal hernia. Normal small intestine. There are multiple colonic diverticula consistent with diverticulosis. The appendix is visualized and appears normal. Normal abdominal aorta. Normal inferior vena cava. Normal retroperitoneum. Normal urinary bladder. Normal visualized uterus. Normal abdominal wall. Normal osseous structures. CT/Abdomen/Pelvis WITH Contrast IMPRESSION: No definite acute abnormality. Intrahepatic bile duct distention, correlate with liver function tests. Electronically Signed: Roque Blair MD at 21:28 EDT , Service support ,
--- NOTE | 2019-11-08 18:49 | ED.DCSUM_ITS ---
- ER Visit Summary Date of Service: 11/08/19 Chief Complaint: Abdominal pain History of Present Illness: The patient is a 58 F who presents with abdominal pain that is been getting worse over the past 2 days. Patient states it is gradually gotten worse. Patient states the pain is over the left side of her abdomen and radiates to her left flank. Patient states she has a history of diverticulitis and this feels somewhat similar to that. Patient admits to nausea but denies any vomiting. Patient admits to some diarrhea but denies any melena or hematochezia. Patient denies any dysuria or hematuria. Patient denies any fevers or chills. Physical Examination: Vital signs are stable except for mild tachycardia of 111. Patient is afebrile. Patient is in no acute distress. Oral mucosa is pink and moist. Neck is supple. Trachea is midline. There is no JVD. Heart was regul ar and tachycardic. Lungs are clear and equal bilaterally. Abdomen is soft. Bowel sounds are normal. There is left upper and left lower quadrant tenderness. There is no rebound or guarding noted. There is mild left CVA tenderness. Cranial nerves II through XII are intact. There are no focal motor or sensory deficits noted. Extremities are intact. There is no calf tenderness or edema. Test Results: CBC shows an anemia with a hemoglobin of 9.8 and hematocrit 33.6. White blood cell count was normal. Comprehensive metabolic profile was essentially within normal limits. Urinalysis shows leukocyte esterase of [address] but was otherwise normal. CT scan of the abdomen pelvis was obtained. There is no definite acute abnormality. This was interpreted by the radiologist and reviewed by myself. Emergency Department Course and Treatment: Patient was given IV fluids, Zofran, and morphine. Patient was advised of her findings. Clinically, the patient's pain and exam is consistent with diverticulitis. Patient will be treated with a course of Augmentin. Patient was instructed to follow-up with her primary care physician in 5 to 7 days. Patient understood and was agreeable with the plan. All questions were answered. Disposition: Discharge home Impression: 1. Abdominal pain 2. Clinical diverticulitis This note was generated with [employer] software. It may contain incorrect words, spelling, and punctuation that were not noted in review of the chart prior to signing ED Disposition - Plan for ED Patient: Disposition: Home or Assisted Living Diagnosis: Abdominal pain, History of diverticulitis Instructions: ED Abdominal Pain Unkn Cause Fem, ED Diverticulitis Prescriptions: Amox/Clavulanate Tablet [Augmentin Tablet] 875 mg PO Q12H #20 tab Prescription Printed Referrals: Carol Gonzalez PA [Primary Care Provider] - 5-7 Days
[2019-11-08 19:17] LABS: Absolute Lymphocyte Count 1.03 X10^3/uL (0.83-4.51); Basophil# 0.04 X10^3/uL; Basophil% 0.9 % (0-1); Eosinophils% 2.2 % (0-5); Hematocrit 33.6 % (37-47); Hemoglobin 9.8 g/dL (12.0-15.0); Lymphocyte # 1.03 X10^3/ul (4.0); Lymphocyte % 22.4 % (19-41); Mean Corp Hgb Conc 29.2 g/dL (32-36); Mean Corpuscular Hgb 21.9 pg (27.0-32.0); Mean Corpuscular Volume 75.2 fL (81-99); Mean Platelet Vol. 10.8 fl (6.2-12.0); Monocyte# 0.39 X10^3/uL; Monocyte% 8.5 % (0-10); NRBC Flagged by Analyzer 0 % (0-5); Neutrophil # 3.03 X10^3/uL (2.7-7.7); Neutrophil % 65.8 % (47-70); Platelet Count 236 K/mm3 (150-450); RBC Distribution Width CV 15.4 % (11.6-14.6); RBC Distribution Width SD 41.8 fl (35.1-43.9); Red Blood Count 4.47 M/mm3 (4.2-5.4); White Blood Count 4.6 K/mm3 (4.4-11.0)
[2019-11-08] MEDS: Morphine 4 MG/ML Syringe IV (19:25)
[2019-11-08] MEDS: Ondansetron 4 MG/2 ML Vial IV (19:25)
[2019-11-08] MEDS: 0.9% Normal Saline 1,000 ML 1000 ML IV (19:25)
[2019-11-08 19:33] LABS: Lipase 96 U/L (73-393)
[2019-11-08 20:09] LABS: Bacteria 0 SEEN /hpf (None Seen); Mucous, Urine 0 SEEN /hpf (<or=2+); Red Blood Cells-Urine 0 SEEN /hpf (0-5)
[2019-11-08 20:13] LABS: Color, Urine Yellow (Yellow); Glucose, Dipstick Normal (Normal); Ketone-Dipstick Negative (Negative); Leukocyte Esterase-Dipstick 100 /ul (Negative); Nitrite-Dipstick Negative (Negative); Occult Blood-Urine Negative /ul (Negative); Protein-Dipstick Negative (Negative); Urine Bilirubin Dipstick Negative (Negative); Urine Clarity Clear (Clear); Urine Urobilinogen Normal (Normal)
[2019-11-08 20:24] LABS: Squamous Epithelial Cells - UA 0-5 SEEN /hpf (5-10); White Blood Cells 0-5 SEEN /hpf (0-5)
[2019-11-08 21:36] LABS: ALB/GLOB Ratio 0.9 RATIO (0.9-2.4); AST(SGOT) 18 U/L (15-37); Alanine Aminotransfer ALT/SGPT 17 U/L (13-56); Albumin, Serum 3.7 g/dL (3.2-5.0); Alkaline Phosphatase 70 U/L (45-117); Anion Gap 7 (5-15); BUN 9 mg/dL (7-18); BUN/Creat Ratio 7.9 RATIO (10-20); Calcium,Total 8.5 mg/dL (8.5-10.1); Chloride 112 mmol/L (98-107); Creatinine, Serum 1.14 mg/dL (0.55-1.02); EST Glomerular Filtration Rate 52 mL/min (>60); Est Glom Filt Rate - Afr Amer 63 mL/min (>60); Estimated Creatinine Clearance 49.74 ml/min; Globulin 3.9 g/dL (2.2-4.2); Glucose 89 mg/dL (74-106); Potassium 4.5 mmol/L (3.5-5.1); Protein, Total 7.6 g/dL (6.4-8.2); Sodium Level 141 mmol/L (136-145)
[2019-11-08 22:19] VITALS: BP 108/66; PULSE 70; RESP 15; O2SAT 99
[2019-11-08] MEDS: Amox/Clavulanate 875 MG Tablet PO (22:45)
[2019-11-08 22:47] VITALS: PULSE 78; RESP 15; O2SAT 99
== END 2019-11-08 22:48 | disposition home or self-care (01) ==
PROVIDERS: Emergency Provider Emergency Medicine; PCP Physician Assistant
DX: K57.92 Diverticulitis of intestine, part unspecified, without perforation or abscess without bleeding (principal); K21.9 Gastro-esophageal reflux disease without esophagitis; F41.9 Anxiety disorder, unspecified; Z79.899 Other long term (current) drug therapy
CPT/HCPCS: 74177; 80053; 81001; 83690; 85025; 96361; 96374; 96375; 99284; J7030; Q9967; A4216; J2405

== ENCOUNTER → 2019-11-29 09:55 | Outpatient (CLI) | payer MEDICAID, SELFPAY ==
[2019-11-08 18:24] VITALS: BMI 24.0
== END ==
PROVIDERS: PCP Physician Assistant
DX: Z20.828 Contact with and (suspected) exposure to other viral communicable diseases (principal); J02.9 Acute pharyngitis, unspecified; R68.83 Chills (without fever); R06.02 Shortness of breath; R43.9 Unspecified disturbances of smell and taste
CPT/HCPCS: 87635; C9803; U0003

== ENCOUNTER 2019-12-05 16:55 | Emergency (ER) | payer MEDICAID, SELFPAY ==
[2019-12-05 16:56] VITALS: BP 135/87; PULSE 93; RESP 16; TEMP 36.9; O2SAT 98; BMI 24.0
--- NOTE | 2019-12-05 17:23 | ED.VIS.GEN ---
History of Present Illness Chief Complaint: General Illness Informant: Patient Onset: Weeks Context: Gradual Onset Current Severity: Moderate Maximum Severity: Moderate Narrative: Patient returns to the ER today with continued abdominal pain. She was seen in mid October for abdominal pain. Clinically she had diverticulitis although her blood work and CT scan were unremarkable. She was treated with a course of Augmentin. She returns back today state that she had no change in her symptoms. She has not seen her doctor but did speak with them on the phone. She said they had nothing else to offer at that time. Patient reports subjective fevers at home but did not measure her temperature. She has had some nausea but no vomiting. She does report having diarrhea a few days ago. Patient is also reporting increased anxiety. Her Klonopin was last filled on October 31. She states when she went to the pharmacy to get it refilled there was a delay in getting to it and she has not had her medicine for the last 5 days or so. - Past Medical History (1) GERD (gastroesophageal reflux disease) Status: Chronic (2) Kidney stones Status: Chronic (3) History of diverticulitis Status: Chronic (4) Anxiety Status: Chronic (5) Depression Status: Chronic Past Medical History - Allergies and Home Meds Allergies/Adverse Reactions: Allergies Egg Derived Adverse Reaction (Verified 12/05/19 16:56) Nausea/Vom/Diarrhea prednisone Adverse Reaction (Verified 12/05/19 16:56) Other Primary Care Physician: Carol Gonzalez PA [Primary Care Provider] - Prior records reviewed: Yes Surgical History: cholecystectomy Smoking Status: Former smoker - Family History Maternal Family History: Reports: - - Denies maternal cardiac history. Paternal Family History: Reports: - - Congestive heart failure Review of Systems General: Reports: Fever, Subjective. Denies: Chills Eyes: Denies: Visual changes - bilaterally ENT: Denies: Bilateral ear pain Cardiovascular: Denies: Chest pain Respiratory: Denies: Dyspnea, Cough Gastrointestinal: Reports: Abdominal pain, Nausea, Diarrhea. Denies: Vomiting Genitourinary: Denies: Dysuria Musculoskeletal: Denies: Extremity Pain Skin: Denies: Rash Neurological: Denies: Headache Psych: Reports: Anxiety Hematologic: Denies: Easy bruising, Easy bleeding Allergy: Denies: Uticaria Physical Exam Vital Signs/Narrative: Vital Signs Temp Pulse Resp BP Pulse Ox 12/05/19 16:56 98.4 F 93 16 135/87 H 98 Inital Vital Signs reviewed: Yes General: Well nourished, Well developed Head: Normocephalic ENT: Moist mucous membranes Neck: Supple Cardiovascular: Regular rate, Regular rhythm Respiratory: No distress, CTA bilaterally Abdomen: Soft, Normal bowel sounds, Tender - Mild diffuse tenderness palpation.. Negative for: Guarding, Rebound tenderness Back: Nontender Extremities: Nontender Skin: Normal color Neurological: Alert, Oriented x3 Psychological: - - Anxious Diagnostic/Tx/Re-eval Laboratory Results 12/05/19 12/05/19 12/05/19 14:56 17:27 17:27 WBC 5.8 RBC 4.67 Hgb 9.9 L Hct 35.2 L MCV 75.4 L MCH 21.2 L MCHC 28.1 L RDW Std Deviation 42.4 RDW Coeff of Rinku 15.7 H Plt Count 265 MPV 9.9 Immature Gran % (Auto) 0.300 Neut % (Auto) 72.9 H Lymph % (Auto) 17.6 L [place] % (Auto) 7.7 Eos % (Auto) 1.2 Baso % (Auto) 0.3 Absolute Neuts (auto) 4.2 Absolute Lymphs (auto) 1.02 Nucleated RBC % 0 Sodium 142 Potassium 4.2 Chloride 113 H Carbon Dioxide 23.0 Anion Gap 6 BUN 11 Creatinine 1.18 H Estim Creat Clear Calc 48.06 Est GFR (MDRD) Af Amer 60 Est GFR (MDRD) Non-Af 50 L BUN/Creatinine Ratio 9.3 L Glucose 95 Calcium 8.7 Total Bilirubin 0.50 Direct Bilirubin 0.12 AST 18 ALT 16 Alkaline Phosphatase 80 Total Protein 7.8 Albumin 3.7 Globulin 4.1 Lipase 104 Urine Color Yellow Urine Clarity Clear Urine pH 7.0 Ur Specific [place] 1.010 Urine Protein Negative Urine Glucose (UA) Normal Urine Ketones Negative Urine Occult Blood Negative Urine Nitrite Negative Urine Bilirubin Negative Urine Urobilinogen Normal Ur Leukocyte Esterase 500 H Urine RBC 0 SEEN Urine WBC 0-5 SEEN Ur Squamous Epith Cells 0-5 SEEN Urine Bacteria 0 SEEN Urine Mucus 0 SEEN - Medical Decision Making She was given a dose of Ativan and Toradol here along with IV fluids. On repeat evaluation she does report improvement in her symptoms. Lab work is unchanged when compared to studies 3 weeks ago. I do not feel repeat abdominal imaging is necessary. CT scan was normal 3 weeks ago. Patient states that the problem with getting her Klonopin was her doctor has not called in the prescription yet. I will write her prescription to cover her the next 3 days while she is trying to get in touch with her doctor's office to get a new prescription. I will also write her some Bentyl to help with her abdominal cramping. She is comfortable with this plan. ED Disposition - Plan for ED Patient: Disposition: Home or Assisted Living Diagnosis: Abdominal pain, Anxiety Instructions: ED Abdominal Pain Unkn Cause Fem, ED Stress React Prescriptions: Dicyclomine HCl [Bentyl] 20 mg PO TIDAC #20 cap Transmission Status: Pending to [facility] Clonazepam [Klonopin] 0.5 mg PO BID #7 tablet Transmission Status: Sent to [facility] Referrals: Carol Gonzalez PA [Primary Care Provider] - 1 Week
[2019-12-05 17:34] LABS: Absolute Lymphocyte Count 1.02 X10^3/uL (0.83-4.51); Absolute Neutrophil Count 4.2 X10^3/uL (2.0-7.7); Basophil# 0.02 X10^3/uL; Basophil% 0.3 % (0-1); Eosinophil# 0.07 X10^3/uL; Eosinophils% 1.2 % (0-5); Hematocrit 35.2 % (37-47); Hemoglobin 9.9 g/dL (12.0-15.0); Lymphocyte # 1.02 X10^3/ul (4.0); Lymphocyte % 17.6 % (19-41); Mean Corp Hgb Conc 28.1 g/dL (32-36); Mean Corpuscular Hgb 21.2 pg (27.0-32.0); Mean Corpuscular Volume 75.4 fL (81-99); Mean Platelet Vol. 9.9 fl (6.2-12.0); Monocyte# 0.45 X10^3/uL; Monocyte% 7.7 % (0-10); NRBC Flagged by Analyzer 0 % (0-5); Neutrophil # 4.23 X10^3/uL (2.7-7.7); Neutrophil % 72.9 % (47-70); Platelet Count 265 K/mm3 (150-450); RBC Distribution Width CV 15.7 % (11.6-14.6); RBC Distribution Width SD 42.4 fl (35.1-43.9); Red Blood Count 4.67 M/mm3 (4.2-5.4); White Blood Count 5.8 K/mm3 (4.4-11.0)
[2019-12-05 17:45] VITALS: RESP 16
[2019-12-05] MEDS: Ketorolac 30 MG/ML Syringe IV (17:48)
[2019-12-05] MEDS: 0.9% Normal Saline 1,000 ML 150 ML IV (17:48)
[2019-12-05] MEDS: LORazepam 2 MG/ML Syringe 0.5 MG IV (17:49)
[2019-12-05 17:53] LABS: AST(SGOT) 18 U/L (15-37); Alanine Aminotransfer ALT/SGPT 16 U/L (13-56); Albumin, Serum 3.7 g/dL (3.2-5.0); Alkaline Phosphatase 80 U/L (45-117); Anion Gap 6 (5-15); BUN 11 mg/dL (7-18); BUN/Creat Ratio 9.3 RATIO (10-20); Bilirubin, Direct 0.12 mg/dL (0.00-0.30); Calcium,Total 8.7 mg/dL (8.5-10.1); Chloride 113 mmol/L (98-107); Creatinine, Serum 1.18 mg/dL (0.55-1.02); EST Glomerular Filtration Rate 50 mL/min (>60); Est Glom Filt Rate - Afr Amer 60 mL/min (>60); Estimated Creatinine Clearance 48.06 ml/min; Globulin 4.1 g/dL (2.2-4.2); Glucose 95 mg/dL (74-106); Lipase 104 U/L (73-393); Potassium 4.2 mmol/L (3.5-5.1); Protein, Total 7.8 g/dL (6.4-8.2); Sodium Level 142 mmol/L (136-145)
[2019-12-05 18:07] LABS: Bacteria 0 SEEN /hpf (None Seen); Mucous, Urine 0 SEEN /hpf (<or=2+); Red Blood Cells-Urine 0 SEEN /hpf (0-5)
[2019-12-05 18:09] LABS: Color, Urine Yellow (Yellow); Glucose, Dipstick Normal (Normal); Ketone-Dipstick Negative (Negative); Leukocyte Esterase-Dipstick 500 /ul (Negative); Nitrite-Dipstick Negative (Negative); Occult Blood-Urine Negative /ul (Negative); Protein-Dipstick Negative (Negative); Urine Bilirubin Dipstick Negative (Negative); Urine Clarity Clear (Clear); Urine Urobilinogen Normal (Normal)
[2019-12-05 18:21] LABS: Squamous Epithelial Cells - UA 0-5 SEEN /hpf (5-10); White Blood Cells 0-5 SEEN /hpf (0-5)
[2019-12-05 18:54] VITALS: BP 143/89; PULSE 71; RESP 14; O2SAT 98
== END 2019-12-05 18:56 | disposition home or self-care (01) ==
PROVIDERS: Emergency Provider Emergency Medicine; PCP Physician Assistant
DX: F41.9 Anxiety disorder, unspecified (principal); R10.84 Generalized abdominal pain; K21.9 Gastro-esophageal reflux disease without esophagitis; F32.9 Major depressive disorder, single episode, unspecified; Z79.899 Other long term (current) drug therapy; Z87.891 Personal history of nicotine dependence
CPT/HCPCS: 80048; 80076; 81001; 83690; 85025; 96361; 96374; 96375; 99284; J7030; A4216

== ENCOUNTER 2019-12-12 19:46 | Emergency (ER) | payer MEDICAID, SELFPAY ==
[2019-12-12 19:46] VITALS: BP 150/78; PULSE 89; RESP 18; TEMP 36.3; O2SAT 100; BMI 23.9
--- NOTE | 2019-12-12 20:08 | CT_ITS ---
STUDY: CT ABDOMEN AND PELVIS WITH CONTRAST REASON FOR EXAM: Female, 59 years old. LLQ PAIN -- HX:COPD,GERD,DIVERTICULITIS WITH Abscess, hiatal HERNIA -- CHOLECYSTECTOMY RADIATION DOSAGE (If Supplied By Facility): CTDIvol = ( 12.23 ) mGy, DLP = ( 736.27 ) mGycm TECHNIQUE: Transaxial images were obtained from the dome of the diaphragm to the symphysis pubis without oral contrast. IV 100mL Isovue-370 was administered. Sagittal and coronal images were reconstructed. Individualized dose optimization techniques were used for this CT. COMPARISON: 11/01/2018 and 11/08/2019 FINDINGS: The visualized lung bases are unremarkable. The visualized portions of the heart are within normal limits. There is stable intra and extrahepatic ductal dilatation. There are surgical clips in the gallbladder fossa consistent with a prior cholecystectomy. There is stable splenomegaly. Normal pancreas. Normal bilateral adrenal glands. There is a stable fat-containing round 1.3 cm focus arising from the lower pole of the right kidney which may reflect an angiomyolipoma. There is left renal atrophy. There is a left renal cyst. There is a moderate hiatal hernia. Normal small intestine. There are multiple colonic diverticula consistent with diverticulosis. The appendix is visualized and appears normal. There is stable diffuse atherosclerotic calcification of the abdominal aorta, without a demonstrated aneurysm. Normal inferior vena cava. Normal retroperitoneum. Normal urinary bladder. There is a small umbilical hernia containing fat. There are diffuse degenerative changes of the visualized lumbar spine. CT/Abdomen/Pelvis W IV Cont ONLY IMPRESSION: Colonic diverticulosis. Atherosclerosis. Hiatal hernia. Stable intra and extrahepatic ductal dilatation. Stable splenomegaly. Stable left renal atrophy. Electronically Signed: Karyn Maradiaga MD at 20:43 EDT Tel , Service support ,
[2019-12-12 20:13] LABS: Mucous, Urine 0 SEEN /hpf (<or=2+); Red Blood Cells-Urine 0 SEEN /hpf (0-5)
[2019-12-12 20:14] LABS: Color, Urine Yellow (Yellow); Glucose, Dipstick Normal (Normal); Ketone-Dipstick Negative (Negative); Leukocyte Esterase-Dipstick 500 /ul (Negative); Nitrite-Dipstick Negative (Negative); Occult Blood-Urine Negative /ul (Negative); Protein-Dipstick Negative (Negative); Urine Bilirubin Dipstick Negative (Negative); Urine Clarity Clear (Clear); Urine Urobilinogen Normal (Normal)
[2019-12-12] MEDS: 0.9% Normal Saline 1,000 ML 1000 ML IV (20:14)
[2019-12-12] MEDS: Ondansetron 4 MG/2 ML Vial IV (20:14)
[2019-12-12] MEDS: Morphine 4 MG/ML Syringe IV (20:14)
[2019-12-12 20:20] VITALS: BP 143/85; PULSE 95; RESP 16; O2SAT 100
[2019-12-12 20:22] LABS: Bacteria RARE /hpf (None Seen); Squamous Epithelial Cells - UA 0-5 SEEN /hpf (5-10); White Blood Cells 5-10 SEEN /hpf (0-5)
[2019-12-12 20:26] LABS: Absolute Lymphocyte Count 1.26 X10^3/uL (0.83-4.51); Absolute Neutrophil Count 3.6 X10^3/uL (2.0-7.7); Basophil# 0.04 X10^3/uL; Basophil% 0.7 % (0-1); Eosinophil# 0.06 X10^3/uL; Eosinophils% 1.1 % (0-5); Hematocrit 34.1 % (37-47); Hemoglobin 9.8 g/dL (12.0-15.0); Lymphocyte # 1.26 X10^3/ul (4.0); Lymphocyte % 23.4 % (19-41); Mean Corp Hgb Conc 28.7 g/dL (32-36); Mean Corpuscular Hgb 21.6 pg (27.0-32.0); Mean Corpuscular Volume 75.1 fL (81-99); Mean Platelet Vol. 9.5 fl (6.2-12.0); Monocyte# 0.38 X10^3/uL; Monocyte% 7.1 % (0-10); NRBC Flagged by Analyzer 0 % (0-5); Neutrophil # 3.63 X10^3/uL (2.7-7.7); Neutrophil % 67.5 % (47-70); Platelet Count 241 K/mm3 (150-450); RBC Distribution Width CV 15.5 % (11.6-14.6); Red Blood Count 4.54 M/mm3 (4.2-5.4); White Blood Count 5.4 K/mm3 (4.4-11.0)
--- NOTE | 2019-12-12 20:50 | ED.VIS.GEN ---
History of Present Illness Chief Complaint: Abd Pain Informant: Patient Onset: Yesterday Context: Gradual Onset Timing: Continuous Current Severity: Moderate Maximum Severity: Moderate Narrative: Patient is a 59-year-old female with medical history significant for prior diverticulitis with abscess who presents to the emergency department left lower quadrant pain and suprapubic pain. The patient states her symptoms been yesterday. She describes diffuse cramping with pain in her lower quadrant. She states she did have constipation yesterday. She denies any fevers or chills. She states with walking, makes her pain worse. She is not had any vomiting. She states she is otherwise been in her normal state of health. Prior similar symptoms: Yes Recent Illness/Hospitalization: No Past Medical History - Allergies and Home Meds Allergies/Adverse Reactions: Allergies Egg Derived Adverse Reaction (Verified 12/05/19 16:56) Nausea/Vom/Diarrhea prednisone Adverse Reaction (Verified 12/05/19 16:56) Other Primary Care Physician: Carol Gonzalez PA [Primary Care Provider] - Prior records reviewed: Yes Past Medical History: - - Diverticulitis with abscess Surgical History: cholecystectomy Smoking Status: Former smoker - Family History Maternal Family History: Reports: - - Denies maternal cardiac history. Paternal Family History: Reports: - - Congestive heart failure Review of Systems General: Denies: Chills, Fever, Sweats Eyes: Denies: Visual changes - bilaterally, Diplopia ENT: Denies: Rhinorrhea, Sore throat Cardiovascular: Denies: Chest pain, Palpitations Respiratory: Denies: Dyspnea, Cough, Dyspnea on exertion Gastrointestinal: Reports: Abdominal pain, Nausea. Denies: Vomiting, Diarrhea, Melena, Hematochezia Genitourinary: Denies: Dysuria, Hematuria, Frequency Musculoskeletal: Denies: Back pain, Extremity Pain Skin: Denies: Rash, Wounds Neurological: Denies: Headache, Weakness, Numbness Physical Exam Vital Signs/Narrative: Vital Signs Temp Pulse Resp BP Pulse Ox 12/12/19 20:20 95 16 143/85 H 100 12/12/19 19:46 97.3 F L 89 18 150/78 H 100 Inital Vital Signs reviewed: Yes General: Well nourished, Well developed, No Acute Distress Head: Normocephalic, Atraumatic Eyes: Perrl, EOMI ENT: Moist mucous membranes, No rhinorrhea Neck: Supple, Nontender Cardiovascular: Regular rate, Regular rhythm, No murmurs Respiratory: No distress, CTA bilaterally, Chest nontender Abdomen: Soft, Nondistended, Normal bowel sounds, Tender. Negative for: Guarding, Rebound tenderness Back: Nontender, Normal Inspection Extremities: Nontender, No edema Skin: Normal color, No rash Neurological: Alert, Oriented x3, Cranial nerves II-XII grossly intact, Normal Strength, Normal Sensation Psychological: Normal affect, Normal Mood Diagnostic/Tx/Re-eval Clinical Impression(s) from Imaging Studies Abdomen/Pelvis CT 12/12/19 20:08 IMPRESSION: Colonic diverticulosis. Atherosclerosis. Hiatal hernia. Stable intra and extrahepatic ductal dilatation. Stable splenomegaly. Stable left renal atrophy. Electronically Signed: Karyn Maradiaga MD at 20:43 EDT Tel , Service support , Abnormal Lab Results 12/12/19 12/12/19 12/12/19 20:05 20:15 20:15 WBC 5.4 RBC 4.54 Hgb 9.8 L Hct 34.1 L MCV 75.1 L MCH 21.6 L MCHC 28.7 L RDW Std Deviation 42.0 RDW Coeff of Rinku 15.5 H Plt Count 241 MPV 9.5 Immature Gran % (Auto) 0.200 Neut % (Auto) 67.5 Lymph % (Auto) 23.4 [place] % (Auto) 7.1 Eos % (Auto) 1.1 Baso % (Auto) 0.7 Absolute Neuts (auto) 3.6 Absolute Lymphs (auto) 1.26 Nucleated RBC % 0 Sodium 141 Potassium 3.8 Chloride 111 H Carbon Dioxide 25.0 Anion Gap 5 BUN 17 Creatinine 1.17 H Estim Creat Clear Calc 47.87 Est GFR (MDRD) Af Amer 61 Est GFR (MDRD) Non-Af 50 L BUN/Creatinine Ratio 14.5 Glucose 101 Calcium 8.9 Total Bilirubin 0.40 AST 13 L ALT 16 Alkaline Phosphatase 85 Total Protein 8.0 Albumin 3.8 Globulin 4.2 Albumin/Globulin Ratio 0.9 Urine Color Yellow Urine Clarity Clear Urine pH 7.0 Ur Specific [place] 1.010 Urine Protein Negative Urine Glucose (UA) Normal Urine Ketones Negative Urine Occult Blood Negative Urine Nitrite Negative Urine Bilirubin Negative Urine Urobilinogen Normal Ur Leukocyte Esterase 500 H Urine RBC 0 SEEN Urine WBC 5-10 SEEN Ur Squamous Epith Cells 0-5 SEEN Urine Bacteria RARE Urine Mucus 0 SEEN - Medical Decision Making The patient presents with recurrent abdominal pain. It is in her left lower quadrant. She had a CT scan just about a month ago which was unremarkable but she was treated clinically for diverticulitis. With her persistent pain, I did want to rule out abscess that she does have history of this. Screening labs were obtained were relatively unremarkable. There is some trace evidence of infection in the urine. CT does not show acute intra-abdominal process. I am going to treat the patient with Macrobid and Bentyl. My suspicion for dangerous intra-abdominal process is low and I do feel that she is safe for outpatient therapy. Impression 1. Left lower quadrant abdominal pain 2. Cystitis ED Disposition - Plan for ED Patient: Instructions: ED Abdominal Pain Unkn Cause Fem, ED CYSTITIS Female Adult Prescriptions: Dicyclomine HCl [Bentyl] 20 mg PO TIDAC #20 cap Prescription Printed Nitrofurantoin Macrocrystals [Macrobid] 100 mg PO Q12 #14 cap Prescription Printed Referrals: Carol Gonzalez PA [Primary Care Provider] -
[2019-12-12 20:53] LABS: ALB/GLOB Ratio 0.9 RATIO (0.9-2.4); AST(SGOT) 13 U/L (15-37); Alanine Aminotransfer ALT/SGPT 16 U/L (13-56); Albumin, Serum 3.8 g/dL (3.2-5.0); Alkaline Phosphatase 85 U/L (45-117); Anion Gap 5 (5-15); BUN 17 mg/dL (7-18); BUN/Creat Ratio 14.5 RATIO (10-20); Calcium,Total 8.9 mg/dL (8.5-10.1); Chloride 111 mmol/L (98-107); Creatinine, Serum 1.17 mg/dL (0.55-1.02); EST Glomerular Filtration Rate 50 mL/min (>60); Est Glom Filt Rate - Afr Amer 61 mL/min (>60); Estimated Creatinine Clearance 47.87 ml/min; Globulin 4.2 g/dL (2.2-4.2); Glucose 101 mg/dL (74-106); Potassium 3.8 mmol/L (3.5-5.1); Sodium Level 141 mmol/L (136-145)
[2019-12-12 21:14] VITALS: BP 124/101; PULSE 94; RESP 16; O2SAT 99
== END 2019-12-12 21:17 | disposition home or self-care (01) ==
LOC: ED 20:36
PROVIDERS: Emergency Provider Emergency Medicine; PCP Physician Assistant
DX: N30.90 Cystitis, unspecified without hematuria (principal); R10.32 Left lower quadrant pain; Z87.891 Personal history of nicotine dependence
CPT/HCPCS: 74177; 80053; 81001; 85025; 96361; 96374; 96375; 99283; Q9967; J2405

== ENCOUNTER 2019-12-28 00:28 | Emergency (ER) | payer MEDICAID, SELFPAY ==
[2019-12-28 00:29] VITALS: BP 163/83; PULSE 88; RESP 16; TEMP 36.5; O2SAT 100; BMI 21.7
--- NOTE | 2019-12-28 00:52 | ED.DCSUM_ITS ---
History of Present Illness Chief Complaint: Abd Pain Informant: Patient Narrative: Resents with lower abdominal pain concentrated in the suprapubic and right side. Patient stated that is been there for 3 days constant sharp rating to the right back. History of kidney stone remotely in the past. No fevers or chills. Mild nausea. Normal bowel movements. Recently treated for bladder infection with Macrobid approximately 2 weeks ago. She finished the antibiotic approximately 10 days ago. History of diverticulitis on the left side. Not having any left- sided pain at this time. Recent negative CAT scan 2 weeks ago as well as approximately 6 weeks ago. These were of her abdomen and pelvis. History of cholecystectomy in the past. Using ibuprofen intermittently with moderate relief. - Past Medical History (1) Abdominal pain, left lower quadrant Status: Acute (2) Anxiety Status: Chronic (3) Depression Status: Chronic (4) GERD (gastroesophageal reflux disease) Status: Chronic (5) History of diverticulitis Status: Chronic (6) Kidney stones Status: Chronic Past Medical History - Allergies and Home Meds Allergies/Adverse Reactions: Allergies Egg Derived Adverse Reaction (Verified 12/28/19 00:31) Nausea/Vom/Diarrhea prednisone Adverse Reaction (Verified 12/28/19 00:31) Other Primary Care Physician: Carol Gonzalez PA [Primary Care Provider] - Prior records reviewed: Yes Past Medical History: - Surgical History: cholecystectomy Lives: With Family Smoking Status: Never smoker Alcohol: None Drugs: None - Family History Maternal Family History: Reports: - - Denies maternal cardiac history. Paternal Family History: Reports: - - Congestive heart failure Review of Systems General: Denies: Chills, Fever, Sweats Eyes: Denies: Visual changes - bilaterally, Diplopia ENT: Denies: Rhinorrhea, Sore throat Cardiovascular: Denies: Chest pain, Palpitations Respiratory: Denies: Dyspnea, Cough, Dyspnea on exertion Gastrointestinal: Reports: Abdominal pain, Nausea. Denies: Vomiting, Diarrhea, Melena, Hematochezia Genitourinary: Denies: Dysuria, Hematuria, Frequency Musculoskeletal: Denies: Back pain, Extremity Pain Skin: Denies: Rash, Wounds Neurological: Denies: Headache, Weakness, Numbness Physical Exam Vital Signs/Narrative: Vital Signs Temp Pulse Resp BP Pulse Ox 12/28/19 00:29 97.7 F L 88 16 163/83 H 100 General: Well nourished, Well developed, No Acute Distress Head: Normocephalic, Atraumatic Eyes: Perrl, EOMI ENT: Moist mucous membranes, No rhinorrhea Neck: Supple, Nontender Cardiovascular: Regular rate, Regular rhythm, No murmurs Respiratory: No distress, CTA bilaterally, Chest nontender Abdomen: Soft, Nondistended, Normal bowel sounds, No masses, Tender - Mild tenderness right lower quadrant suprapubic. Negative for: Guarding, Rebound tenderness Back: Nontender, Normal Inspection Extremities: Nontender, No edema Skin: Normal color, No rash Neurological: Alert, Oriented x3, Cranial nerves II-XII grossly intact, Normal Strength, Normal Sensation Psychological: Normal affect, Normal Mood Diagnostic/Tx/Re-eval - Medical Decision Making IV established given Toradol Zofran IV fluids. Lab work obtained. Lab work shows a chronic anemia. Chronic elevation in creatinine noted. Urinalysis is significant for a urinary tract infection. Urine culture sent. I have a low suspicion for kidney stone. She is resting comfortably on reevaluation without pain. Will be discharged with Cipro and given first dose here. Will also be given Zofran to follow-up as an outpatient ED Disposition - Plan for ED Patient: Disposition: Home or Assisted Living Diagnosis: Urinary tract infection Instructions: ED CYSTITIS Female Adult Prescriptions: Ciprofloxacin [Cipro] 500 mg PO BID #14 tab Transmission Status: Pending to [facility] Ondansetron [Zofran Odt] 8 mg PO Q8H PRN PRN #20 tab PRN Reason: Nausea Transmission Status: Pending to [facility] Referrals: Carol Gonzalez PA [Primary Care Provider] -
[2019-12-28] MEDS: 0.9% Normal Saline 1,000 ML 125 ML IV (01:09)
[2019-12-28] MEDS: Ondansetron 4 MG/2 ML Vial IV (01:09)
[2019-12-28] MEDS: Ketorolac 30 MG/ML Syringe IV (01:09)
[2019-12-28 01:12] LABS: Mucous, Urine 0 SEEN /hpf (<or=2+); Squamous Epithelial Cells - UA 0 SEEN /hpf (5-10)
[2019-12-28 01:13] LABS: Absolute Lymphocyte Count 1.38 X10^3/uL (0.83-4.51); Absolute Neutrophil Count 6.2 X10^3/uL (2.0-7.7); Basophil# 0.05 X10^3/uL; Basophil% 0.6 % (0-1); Eosinophil# 0.04 X10^3/uL; Eosinophils% 0.5 % (0-5); Hematocrit 34.2 % (37-47); Hemoglobin 9.8 g/dL (12.0-15.0); Lymphocyte # 1.38 X10^3/ul (4.0); Mean Corp Hgb Conc 28.7 g/dL (32-36); Mean Corpuscular Hgb 21.4 pg (27.0-32.0); Mean Corpuscular Volume 74.7 fL (81-99); Mean Platelet Vol. 9.9 fl (6.2-12.0); Monocyte# 0.47 X10^3/uL; Monocyte% 5.8 % (0-10); NRBC Flagged by Analyzer 0 % (0-5); Neutrophil # 6.16 X10^3/uL (2.7-7.7); Neutrophil % 75.7 % (47-70); Platelet Count 280 K/mm3 (150-450); RBC Distribution Width CV 15.9 % (11.6-14.6); RBC Distribution Width SD 42.9 fl (35.1-43.9); Red Blood Count 4.58 M/mm3 (4.2-5.4); White Blood Count 8.1 K/mm3 (4.4-11.0)
[2019-12-28 01:15] LABS: Color, Urine Yellow (Yellow); Glucose, Dipstick Normal (Normal); Ketone-Dipstick Negative (Negative); Leukocyte Esterase-Dipstick 500 /ul (Negative); Nitrite-Dipstick Positive (Negative); Occult Blood-Urine 50 /ul (Negative); Protein-Dipstick 15 mg/dl (Negative); Specific Gravity, Urine 1.005 (1.002-1.030); Urine Bilirubin Dipstick Negative (Negative); Urine Clarity Clear (Clear); Urine Urobilinogen Normal (Normal)
[2019-12-28 01:20] LABS: Bacteria 2+ /hpf (None Seen); Red Blood Cells-Urine 0-5 SEEN /hpf (0-5); White Blood Cells 10-25 SEEN /hpf (0-5)
[2019-12-28 01:36] LABS: ALB/GLOB Ratio 0.8 RATIO (0.9-2.4); AST(SGOT) 11 U/L (15-37); Alanine Aminotransfer ALT/SGPT 15 U/L (13-56); Albumin, Serum 3.6 g/dL (3.2-5.0); Alkaline Phosphatase 96 U/L (45-117); Anion Gap 4 (5-15); BUN 12 mg/dL (7-18); Calcium,Total 8.9 mg/dL (8.5-10.1); Chloride 110 mmol/L (98-107); Creatinine, Serum 1.34 mg/dL (0.55-1.02); EST Glomerular Filtration Rate 43 mL/min (>60); Est Glom Filt Rate - Afr Amer 52 mL/min (>60); Globulin 4.4 g/dL (2.2-4.2); Glucose 87 mg/dL (74-106); Lipase 94 U/L (73-393); Potassium 4.1 mmol/L (3.5-5.1); Sodium Level 139 mmol/L (136-145)
[2019-12-28] MEDS: Ciprofloxacin 500 MG Tablet PO (01:55)
[2019-12-28 01:59] VITALS: BP 138/69; PULSE 72; RESP 14; O2SAT 99
== END 2019-12-28 01:59 | disposition home or self-care (01) ==
PROVIDERS: Emergency Provider Emergency Medicine; PCP Physician Assistant
DX: N39.0 Urinary tract infection, site not specified (principal); K21.9 Gastro-esophageal reflux disease without esophagitis; F41.9 Anxiety disorder, unspecified; F32.9 Major depressive disorder, single episode, unspecified; Z87.442 Personal history of urinary calculi; Z79.899 Other long term (current) drug therapy
CPT/HCPCS: 80053; 81001; 83690; 85025; 87086; 87088; 87186; 96361; 96374; 96375; 99284; J7030; A4216; J2405

== ENCOUNTER 2020-06-18 00:01 | Emergency (ER) | payer MEDICAID, SELFPAY ==
[2020-06-18 00:03] VITALS: BP 138/92; PULSE 91; RESP 16; TEMP 36.2; O2SAT 98; BMI 23.1
--- NOTE | 2020-06-18 00:21 | ED.VIS.GEN ---
History of Present Illness Chief Complaint: General Illness Informant: Patient Narrative: Patient stated she had her doctor recently decrease her long-acting benzodiazepine that she takes for anxiety about a week ago and has subsequently been feeling more anxious. She has an appointment to talk to him about it and is not sure why he is weaning her in a couple days. She feels increased anxiety. She has had 2 loose bowel movements per day for the last week. She got her first coronavirus vaccine 1 week ago. She has had some intermittent chills but has not taken her temperature. No home treatment. Denies abdominal pain. She does have sinus congestion and a mild cough per patient. She denies any shortness of breath. - Past Medical History (1) Abdominal pain, left lower quadrant Status: Acute (2) Anxiety Status: Chronic (3) Depression Status: Chronic (4) GERD (gastroesophageal reflux disease) Status: Chronic (5) History of diverticulitis Status: Chronic (6) Kidney stones Status: Chronic Past Medical History - Allergies and Home Meds Allergies/Adverse Reactions: Allergies Egg Derived Adverse Reaction (Verified 06/18/20 00:06) Nausea/Vom/Diarrhea prednisone Adverse Reaction (Verified 06/18/20 00:06) Other Primary Care Physician: Carol Gonzalez PA [Primary Care Provider] - Prior records reviewed: Yes Past Medical History: - Surgical History: cholecystectomy Lives: Alone Smoking Status: Former smoker Alcohol: None Drugs: None - Family History Maternal Family History: Reports: - - Denies maternal cardiac history. Paternal Family History: Reports: - - Congestive heart failure Review of Systems General: Reports: Chills. Denies: Fever, Sweats Eyes: Denies: Visual changes - bilaterally, Diplopia ENT: Reports: Rhinorrhea. Denies: Sore throat Cardiovascular: Denies: Chest pain, Palpitations Respiratory: Reports: Cough. Denies: Dyspnea, Dyspnea on exertion Gastrointestinal: Reports: Diarrhea. Denies: Abdominal pain, Nausea, Vomiting, Melena, Hematochezia Genitourinary: Denies: Dysuria, Hematuria, Frequency Musculoskeletal: Denies: Back pain, Extremity Pain Skin: Denies: Rash, Wounds Neurological: Denies: Headache, Weakness, Numbness Physical Exam Vital Signs/Narrative: Vital Signs Temp Pulse Resp BP Pulse Ox 06/18/20 00:03 97.2 F L 91 16 138/92 H 98 General: Well nourished, Well developed, No Acute Distress Head: Normocephalic, Atraumatic Eyes: Perrl, EOMI ENT: Moist mucous membranes, No rhinorrhea Neck: Supple, Nontender Cardiovascular: Regular rate, Regular rhythm, No murmurs Respiratory: No distress, CTA bilaterally, Chest nontender Abdomen: Soft, Nontender, Nondistended, Normal bowel sounds Back: Nontender, Normal Inspection Extremities: Nontender, No edema Skin: Normal color, No rash Neurological: Alert, Oriented x3, Cranial nerves II-XII grossly intact, Normal Strength, Normal Sensation Psychological: Normal affect, Normal Mood Diagnostic/Tx/Re-eval - Medical Decision Making Patient drove here and does not want anxiety medications and to be monitored for several hours. She will take an extra dose of anxiety medication at home. She has an appointment to discuss her anxiety with her doctor in 2 days. Given IV fluids. Declined Imodium for diarrhea. Metabolic panel obtained. Coronavirus testing obtained. Coronavirus testing negative. Electrolytes unremarkable. She has a baseline creatinine level mildly elevated. On reevaluation resting comfortably. Anxiety seems to have subsided some. Will be discharged to follow-up as an outpatient ED Disposition - Plan for ED Patient: Disposition: Home or Assisted Living Diagnosis: Upper respiratory infection, Diarrhea after vaccination, Anxiety Instructions: ED Diet for Vomiting or Diarrhea Adult, ED Anxiety Reaction Referrals: Carol Gonzalez PA [Primary Care Provider] -
[2020-06-18 00:53] LABS: Anion Gap 6 (5-15); BUN 20 mg/dL (7-18); Calcium,Total 8.9 mg/dL (8.5-10.1); Chloride 110 mmol/L (98-107); Creatinine, Serum 1.33 mg/dL (0.55-1.02); EST Glomerular Filtration Rate 43 mL/min (>60); Est Glom Filt Rate - Afr Amer 52 mL/min (>60); Estimated Creatinine Clearance 42.11 ml/min; Glucose 95 mg/dL (74-106); Potassium 4.4 mmol/L (3.5-5.1); Sodium Level 138 mmol/L (136-145)
== END 2020-06-18 01:50 | disposition home or self-care (01) ==
PROVIDERS: Emergency Provider Emergency Medicine; PCP Physician Assistant
DX: J06.9 Acute upper respiratory infection, unspecified (principal); R19.7 Diarrhea, unspecified; F41.9 Anxiety disorder, unspecified; F32.9 Major depressive disorder, single episode, unspecified; K21.9 Gastro-esophageal reflux disease without esophagitis; Z79.899 Other long term (current) drug therapy; Z87.891 Personal history of nicotine dependence
CPT/HCPCS: 80048; 87426; 96360; 99284; A4216

== ENCOUNTER 2020-09-17 19:20 | Emergency (ER) | payer MEDICAID, SELFPAY ==
[2020-09-17 19:20] VITALS: BP 131/79; PULSE 78; RESP 18; TEMP 36.4; O2SAT 99; BMI 23.6
--- NOTE | 2020-09-17 20:01 | EDS_ITS ---
HPI HPI - GI History of Present Illness Chief Complaint: Abd Pain Informant: patient Abdominal Pain/Flank Pain Onset: Days (3-4) Context: Gradual Onset Timing: Continuous Quality: Aching Location: LUQ, LLQ and - (Radiates into left low back some) Current Severity: Moderate Maximum Severity: Moderate Worsened by: Car ride Relieved by: Nothing Nausea/Vomiting/Emesis GI Symptom: Positive for Nausea and Vomiting Quality: Positive for Nonbilious; Negative for Blood streaks Severity: Mild Diarrhea/Melena/Hematochezia GI Symptom: Positive for Diarrhea; Negative for Melena and Hematochezia Stool Quality: Positive for Loose; Negative for Black and BRB per rectum Severity: Mild Associated Symptoms Associated Symptoms: Negative for Dysuria, Frequency, Hematuria and Urgency Narrative Narrative: Gradual onset and worsening of pain in the left abdomen without any fevers or chills or trouble urinating that feels like diverticulitis that the patient thinks she had in the past. Has had prior cholecystectomy but no other abdominal surgeries. PFSH PFS Medical History (Updated 09/17/20 @ 22:[address] Arjun Rivas MD) Anxiety Depression Diverticulosis GERD (gastroesophageal reflux disease) Kidney stones Home Medications citalopram 40 mg PO DAILY 06/05/13 [History Last Taken 04/30/18 10:00] Omeprazole [Prilosec] 40 mg PO BID 09/26/14 [History Last Taken 04/30/18 10:00] clonazepam [Klonopin] 0.5 mg PO DAILY 09/06/17 [History Last Taken 04/30/18 22:00] Allergy/AdvReac Type Severity Reaction Status Date / Time Egg Derived AdvReac Nausea/Vom/ Verified 09/17/20 19:20 Diarrhea prednisone AdvReac Other Verified 09/17/20 19:20 Surgical History (Updated 09/17/20 @ 20:[address] Arjun Rivas MD) History of cholecystectomy Social History Smoking Status: Former smoker ROS ROS ED Constitutional Constitutional ED: Denies chills or fever(s) Eyes Eyes: Denies blurry vision, change in vision, diplopia or loss of vision ENT ENT ED: Denies rhinorrhea or sore throat Cardiovascular Cardiovascular: Denies chest pain or palpitations Respiratory/Chest Respiratory/Chest: Denies cough or dyspnea Gastrointestinal Gastrointestinal: Reports abdominal pain, diarrhea, nausea and vomiting Genitourinary Genitourinary ED: Denies dysuria or hematuria Musculoskeletal Musculoskeletal: Reports back pain; Denies neck pain Integumentary Denies abscess or rash Neurologic Neurologic: Denies headache(s), paresthesias or weakness Psychiatric Psychiatric: Denies anxiety or suicidal thoughts EXAM Physical Exam Const Vital Signs: 09/17/20 19:20 Temperature 97.5 F L Temperature Source Temporal Pulse Rate 78 Respiratory Rate 18 Blood Pressure 131/79 H Blood Pressure Mean 96 Pulse Ox 99 Oxygen Delivery Method Room Air Positive well nourished and well developed General Appearance ED: well developed and NAD HEENT Reports moist mucous membranes normocephalic and atraumatic Eyes PERRL and EOMs intact bilaterally Neck full ROM and supple Resp normal respiratory effort and clear to auscultation bilaterally Cardio regular rate, regular rhythm and no murmurs GI non-distended GI Narrative: Moderately tender throughout the left abdomen. No palpable mass or pulsatile abnormality Auscultation: normoactive bowel sounds Palpation: soft; Negative for guarding or rebound tenderness present Back/Spine General Back: CVA tenderness left and other FROM Extremity normal to inspection General Extremety ED: Negative for edema, pulses abnormal or tenderness General Extremity: Negative for edema or pulses abnormal Neuro oriented x3, CN's II-XII intact bilaterally and no sensory deficits noted Sensorium / Orientation: awake and alert Motor Exam: strength 5/5 throughout Skin no rashes or lesions noted and no wounds MDM MDM MDM Narrative Medical decision making narrative: Work-up is unremarkable with regards to labs and urinalysis. Given her history of diverticulitis, CT was obtained, she has diverticulosis without evidence of diverticulitis and as below, shows evidence of wall thickening of the abdominal aorta and proximal common iliac arteries concerning for giant cell arteritis. I discussed this with the patient, she has never been told this. It is questionable whether this has anything to do with the patient's pain, which is of unknown etiology but is resolved after doses of morphine and Zofran. There is no one available with vascular surgery for us at this time to discuss this case with, but oftentimes if this is giant cell arteritis, several weeks of steroid tapering is indicated starting the patient at 40-60/day, I discussed starting her on 1 week of steroids until she can follow-up and she adamantly refuses to take prednisone because it gives her mental problems. She understands the pros and cons here, and does not want to take it. I discussed with Dr. Shipley who is on-call for the primary care practice, agrees with outpatient follow-up with them and vascular. Of note, the patient does not have any symptoms of temporal arteritis or changes in vision or visual loss. Lab Data Attestation: I reviewed the patient's lab results. Labs: Laboratory Results - last 24 hr 09/17/20 09/17/20 09/17/20 20:25 20:30 20:30 WBC 5.8 RBC 4.76 Hgb 10.2 L Hct 36.8 L MCV 77.3 L MCH 21.4 L MCHC 27.7 L RDW Std Deviation 45.1 H RDW Coeff of Rinku 15.9 H Plt Count 265 MPV 10.4 Immature Gran % (Auto) 0.300 Neut % (Auto) 67.2 Lymph % (Auto) 24.9 [place] % (Auto) 6.4 Eos % (Auto) 0.5 Baso % (Auto) 0.7 Absolute Neuts (auto) 3.9 Absolute Lymphs (auto) 1.45 Nucleated RBC % 0 Sodium 142 Potassium 4.0 Chloride 112 H Carbon Dioxide 25.0 Anion Gap 5 BUN 11 Creatinine 1.21 H Estim Creat Clear Calc 46.29 Est GFR (MDRD) Af Amer 58 L Est GFR (MDRD) Non-Af 48 L BUN/Creatinine Ratio 9.1 L Glucose 79 Calcium 8.5 Urine Color Yellow Urine Clarity Clear Urine pH 6.0 Ur Specific [place] 1.010 Urine Protein Negative Urine Glucose (UA) Normal Urine Ketones Negative Urine Occult Blood Negative Urine Nitrite Negative Urine Bilirubin Negative Urine Urobilinogen Normal Ur Leukocyte Esterase 25 H Urine RBC 0 SEEN Urine WBC 0 SEEN Ur Squamous Epith Cells 0-5 SEEN Urine Bacteria 1+ Urine Mucus 0 SEEN Radiography Diagnostic Testing: Radiology Impression Abdomen/Pelvis CT 09/17/20 21:14 IMPRESSION: Chronic diffuse thickening of the wall of the abdominal aorta and proximal common iliac arteries. This is concerning for arteritis, such as giant cell arteritis. Large hiatal hernia. Diverticulosis. Fatty liver. Electronically Signed: Ben Cherry MD at 22:04 EDT Tel , Service support , Discharge Plan Triage Chief Complaint: Abd Pain ED Provider: Arjun Rivas Dx/Rx/DC Orders Clinical Impression: Abdominal pain, left lower quadrant, Arteritis, unspecified Instructions: Understanding Vasculitis Prescriptions: No Action citalopram 20 MG tablet 40 mg PO DAILY RF: 0 Omeprazole [Prilosec] 40 MG capsule 40 mg PO BID RF: 0 clonazepam [Klonopin] 0.5 MG tablet 0.5 mg PO DAILY RF: 0 Primary Care Provider: Carol Gonzalez Referrals: Terrance Reich MD [STAFF PHYSICIAN] - As soon as possible (call for appt) Carol Gonzalez PA [Primary Care Provider] - 3-5 Days Disposition Disposition: Home, Self Care
[2020-09-17] MEDS: 0.9% Normal Saline 1,000 ML 1000 ML IV (20:33)
[2020-09-17] MEDS: Ondansetron 4 MG/2 ML Vial IV (20:34)
[2020-09-17] MEDS: Morphine 4 MG/ML Syringe IV (20:34)
[2020-09-17 20:43] LABS: Mucous, Urine 0 SEEN /hpf (<or=2+); Red Blood Cells-Urine 0 SEEN /hpf (0-5); White Blood Cells 0 SEEN /hpf (0-5)
[2020-09-17 20:45] LABS: Color, Urine Yellow (Yellow); Glucose, Dipstick Normal (Normal); Ketone-Dipstick Negative (Negative); Leukocyte Esterase-Dipstick 25 /ul (Negative); Nitrite-Dipstick Negative (Negative); Occult Blood-Urine Negative /ul (Negative); Protein-Dipstick Negative (Negative); Urine Bilirubin Dipstick Negative (Negative); Urine Clarity Clear (Clear); Urine Urobilinogen Normal (Normal)
[2020-09-17 20:46] LABS: Absolute Lymphocyte Count 1.45 X10^3/uL (0.83-4.51); Absolute Neutrophil Count 3.9 X10^3/uL (2.0-7.7); Basophil# 0.04 X10^3/uL; Basophil% 0.7 % (0-1); Eosinophil# 0.03 X10^3/uL; Eosinophils% 0.5 % (0-5); Hematocrit 36.8 % (37-47); Hemoglobin 10.2 g/dL (12.0-15.0); Lymphocyte # 1.45 X10^3/ul (0.83-4.51); Lymphocyte % 24.9 % (19-41); Mean Corp Hgb Conc 27.7 g/dL (32-36); Mean Corpuscular Hgb 21.4 pg (27.0-32.0); Mean Corpuscular Volume 77.3 fL (81-99); Mean Platelet Vol. 10.4 fl (6.2-12.0); Monocyte# 0.37 X10^3/uL; Monocyte% 6.4 % (0-10); NRBC Flagged by Analyzer 0 % (0-5); Neutrophil # 3.91 X10^3/uL (2.7-7.7); Neutrophil % 67.2 % (47-70); Platelet Count 265 K/mm3 (150-450); RBC Distribution Width CV 15.9 % (11.6-14.6); RBC Distribution Width SD 45.1 fl (35.1-43.9); Red Blood Count 4.76 M/mm3 (4.2-5.4); White Blood Count 5.8 K/mm3 (4.4-11.0)
[2020-09-17 20:54] LABS: Squamous Epithelial Cells - UA 0-5 SEEN /hpf (5-10)
[2020-09-17 20:55] LABS: Bacteria 1+ /hpf (None Seen)
[2020-09-17 21:00] LABS: Anion Gap 5 (5-15); BUN 11 mg/dL (7-18); BUN/Creat Ratio 9.1 RATIO (10-20); Calcium,Total 8.5 mg/dL (8.5-10.1); Chloride 112 mmol/L (98-107); Creatinine, Serum 1.21 mg/dL (0.55-1.02); EST Glomerular Filtration Rate 48 mL/min (>60); Est Glom Filt Rate - Afr Amer 58 mL/min (>60); Estimated Creatinine Clearance 46.29 ml/min; Glucose 79 mg/dL (74-106); Sodium Level 142 mmol/L (136-145)
--- NOTE | 2020-09-17 21:14 | CT_ITS ---
INDICATION: LLQ pain EXAMINATION: CT Abdomen And Pelvis W/ Contrast Injection TECHNIQUE: Helically acquired images were obtained of the abdomen and pelvis after IV contrast. A radiation dose optimization technique was used for this scan. IV Contrast dosage and agent: IV 100mL Isovue-300 Oral contrast: None. COMPARISON: 12/12/2019. FINDINGS: Visualized lung bases: Unremarkable Liver: Diffusely hypodense consistent with fatty liver. Mild extra and intrahepatic biliary duct dilatation consistent with reservoir effect. Gallbladder: Surgically absent. Spleen: The spleen is mildly enlarged. Pancreas: Unremarkable Adrenal Glands: Unremarkable Kidneys: Unremarkable Vasculature: Mild scattered aortoiliac atherosclerotic calcifications. There is diffuse thickening of the wall of the abdominal aorta and proximal common iliac arteries. GI Tract: Scattered diverticula throughout the colon without evidence of inflammation. The appendix is not visualized. Large hiatal hernia with trace adjacent free fluid. Lymphadenopathy: None Peritoneum: No ascites. Bladder: Unremarkable Reproductive organs: Unremarkable Bones/Soft tissues: No suspicious osseous or soft tissue lesions CT/Abdomen/Pelvis W IV Cont ONLY IMPRESSION: Chronic diffuse thickening of the wall of the abdominal aorta and proximal common iliac arteries. This is concerning for arteritis, such as giant cell arteritis. Large hiatal hernia. Diverticulosis. Fatty liver. Electronically Signed: Ben Cherry MD at 22:04 EDT Tel , Service support ,
[2020-09-17 22:50] LABS: Erythrocyte Sedimentation Rate 9 mm/hr (0-30)
[2020-09-17 23:09] VITALS: BP 153/88; PULSE 99; RESP 18; O2SAT 100
== END 2020-09-17 23:09 | disposition home or self-care (01) ==
PROVIDERS: Emergency Provider Emergency Medicine; PCP Physician Assistant
DX: R10.32 Left lower quadrant pain (principal); Z87.891 Personal history of nicotine dependence; Z90.49 Acquired absence of other specified parts of digestive tract
CPT/HCPCS: 74177; 80048; 81001; 85025; 85652; 96361; 96374; 96375; 99285; J7030; Q9967; J2405

== ENCOUNTER 2021-05-03 17:55 | Emergency (ER) | payer MEDICAID, SELFPAY ==
[2021-05-03 17:55] VITALS: BP 130/94; PULSE 97; RESP 18; TEMP 36.2; O2SAT 96; BMI 25.8
--- NOTE | 2021-05-03 18:20 | EKG12_ITS ---
Test Reason : PALPS Blood Pressure : / mmHG Vent. Rate : 083 BPM Atrial Rate : 083 BPM P-R Int : 120 ms QRS Dur : 076 ms QT Int : 398 ms P-R-T Axes : 042 067 040 degrees QTc Int : 467 ms Normal sinus rhythm Normal ECG Confirmed by RITU BARR, DIOR ([id number]), editor house organ PONCE TINSELY ([id number]) on 05/05/2021 10:22:00 AM Referred By: SILVER Confirmed By:DIOR CHANEY MD
--- NOTE | 2021-05-03 18:23 | EDS_ITS ---
HPI <NOLAN Casillas - Last Filed: 05/03/21 19:13> History of Present Illness Chief Complaint: Palpitations Narrative Narrative: 60-year-old female with PMH of anxiety presents with palpitations. She started weaning off clonazepam 1 month ago and since then has developed intermittent palpitations. She feels like her heart is pounding out of her chest or sometimes very quickly. This can occur several times a day and last minutes to hours. She denies associated chest pain, shortness of breath, nausea, vomiting, or diaphoresis. Her PCP is supervising her weaning and previously she was on clonazepam 0.5 mg BID and is now on 0.25 mg as needed once daily. She denies cardiopulmonary history. PFSH <NOLAN Casillas - Last Filed: 05/03/21 19:13> PFS Medical History (Updated 05/03/21 @ 19:10 by NOLAN Casillas) Anxiety Depression Diverticulosis GERD (gastroesophageal reflux disease) Kidney stones Home Medications citalopram 40 mg PO DAILY 06/05/13 [History Last Taken 04/30/18 10:00] Omeprazole [Prilosec] 40 mg PO BID 09/26/14 [History Last Taken 04/30/18 10:00] clonazepam [Klonopin] 0.25 mg PO PRN PRN 09/06/17 [History Last Taken 04/30/18 22:00] ferrous gluconate 324 mg PO DAILY 05/03/21 [History Last Taken Unknown] Allergy/AdvReac Type Severity Reaction Status Date / Time Egg Derived AdvReac Nausea/Vom/ Verified 05/03/21 17:58 Diarrhea prednisone AdvReac Other Verified 05/03/21 17:58 Surgical History History of cholecystectomy Social History Smoking Status: Former smoker ROS <NOLAN Casillas - Last Filed: 05/03/21 19:13> ROS ED ROS Narrative Constitutional: Negative for fever, chills, malaise. Eyes: Negative for visual change. ENT: Negative for sore throat, ear pain, rhinorrhea. CVS: Positive for palpitations. Negative for chest pain, syncope. Respiratory: Negative for shortness of breath, cough, orthopnea. GI: Negative for abdominal pain, nausea, vomiting, diarrhea, constipation, melena, hematochezia. : Negative for dysuria, hematuria or frequency. Neuro: Negative for headache, motor/sensory dysfunction. Skin: Negative for rash, abscess, or wound. Heme: Negative for easy bruising, bleeding, lymphadenopathy. EXAM <NOLAN Casillas - Last Filed: 05/03/21 19:13> Physical Exam Narrative Exam Narrative: CONST: Patient sitting in no acute distress. EYES: Normal inspection. ENT: Normal inspection, moist mucous membranes. NECK: Normal inspection. RESP: No respiratory distress, CTAB. CVS: Regular rate and rhythm, no murmur, no gallop. ABD: Soft and nontender, no guarding or rebound, nondistended. Back: Normal inspection. SKIN: Color normal, no rash, warm, dry, intact. EXTREMITIES: Normal appearance, no pedal edema, no calf tenderness. NEURO: Oriented x4. PSYCH: Normal affect. Const Vital Signs: 05/03/21 17:55 05/03/21 18:17 05/03/21 19:40 Temperature 97.1 F L Temperature Source Temporal Pulse Rate 97 65 Respiratory Rate 18 18 Respiratory Effort Normal Non-Labored Respiratory Pattern Normal Blood Pressure 130/94 H Blood Pressure Mean 106 Pulse Ox 96 Oxygen Delivery Method Room Air <Dr. Alonso Van, DO - Last Filed: 05/03/21 23:58> Physical Exam Const Vital Signs: 05/03/21 17:55 05/03/21 18:17 05/03/21 19:40 Temperature 97.1 F L Temperature Source Temporal Pulse Rate 97 65 Respiratory Rate 18 18 Respiratory Effort Normal Non-Labored Respiratory Pattern Normal Blood Pressure 130/94 H Blood Pressure Mean 106 Pulse Ox 96 Oxygen Delivery Method Room Air MDM <NOLAN Casillas - Last Filed: 05/03/21 19:13> [facility] Narrative Medical decision making narrative: Patient presents with palpitations in the context of recently decreasing her anxiety medication. She has no associated chest pain/dyspnea. She appears well and nontoxic. Afebrile and vital signs are unremarkable. Her EKG is sinus rhythm with normal intervals and no ischemic changes. Basic labs were obtained and are normal. She is stable to follow up with her PCP and we discussed if symptoms continue she may need an outpatient heart monitor. She was counseled on signs to return and was discharged in stable condition. Diagnosis 1. Palpitations Lab Data Labs: Laboratory Results - last 24 hr 05/03/21 05/03/21 18:22 18:22 WBC 4.8 RBC 4.89 Hgb 11.8 L Hct 40.1 MCV 82.0 MCH 24.1 L MCHC 29.4 L RDW Std Deviation 46.6 H RDW Coeff of Rinku 15.8 H Plt Count 198 MPV 9.6 Immature Gran % (Auto) 0.200 Neut % (Auto) 68.0 Lymph % (Auto) 22.4 [place] % (Auto) 7.8 Eos % (Auto) 1.0 Baso % (Auto) 0.6 Absolute Neuts (auto) 3.2 Absolute Lymphs (auto) 1.07 Nucleated RBC % 0 Sodium 140 Potassium 4.2 Chloride 111 H Carbon Dioxide 24.0 Anion Gap 5 BUN 20 H Creatinine 1.23 H Estim Creat Clear Calc 44.96 Est GFR (MDRD) Af Amer 57 L Est GFR (MDRD) Non-Af 47 L BUN/Creatinine Ratio 16.3 Glucose 96 Calcium 8.5 <Dr. Alonso Van, DO - Last Filed: 05/03/21 23:58> [facility] MDM Narrative Medical decision making narrative: Patient was seen with me. I agree with the patient's history and physical examination. Patient is a 60-year-old female who presents with palpitations that became worse today. Patient states she feels like her heart is beating hard and fast. Patient states this improved when she came to the emergency department. Patient denies any shortness of breath. Patient denies any nausea or vomiting. Patient denies any diaphoresis. Vital signs are stable. Patient is afebrile. Patient is in no acute distress. Oral mucosa is pink and moist. Neck is supple. Trachea is midline. No JVD or lymphadenopathy. Heart was regular rate and rhythm. Lungs are clear and equal bilateral. Abdomen is soft. Bowel sounds are normal. There is no tenderness. Cranial nerves II through XII are intact. There are no focal motor or sensory deficits noted. CBC was within normal limits. Basic metabolic profile was essentially within normal limits. EKG was obtained. There is normal sinus rhythm. There are no acute ST or T wave changes. Patient was advised to follow-up with her primary care physician in 5 to 7 days. Patient understood and was agreeable with the plan. All questions were answered. Lab Data Attestation: I reviewed the patient's lab results. Labs: Laboratory Results - last 24 hr 05/03/21 05/03/21 18:22 18:22 WBC 4.8 RBC 4.89 Hgb 11.8 L Hct 40.1 MCV 82.0 MCH 24.1 L MCHC 29.4 L RDW Std Deviation 46.6 H RDW Coeff of Rinku 15.8 H Plt Count 198 MPV 9.6 Immature Gran % (Auto) 0.200 Neut % (Auto) 68.0 Lymph % (Auto) 22.4 [place] % (Auto) 7.8 Eos % (Auto) 1.0 Baso % (Auto) 0.6 Absolute Neuts (auto) 3.2 Absolute Lymphs (auto) 1.07 Nucleated RBC % 0 Sodium 140 Potassium 4.2 Chloride 111 H Carbon Dioxide 24.0 Anion Gap 5 BUN 20 H Creatinine 1.23 H Estim Creat Clear Calc 44.96 Est GFR (MDRD) Af Amer 57 L Est GFR (MDRD) Non-Af 47 L BUN/Creatinine Ratio 16.3 Glucose 96 Calcium 8.5 Discharge Plan Triage Chief Complaint: Palpitations ED Provider: Cinthya Briceño Dx/Rx/DC Orders Clinical Impression: Heart palpitations Prescriptions: No Action citalopram 20 MG tablet 40 mg PO DAILY RF: 0 Omeprazole [Prilosec] 40 MG capsule 40 mg PO BID RF: 0 clonazepam [Klonopin] 0.5 MG tablet 0.25 mg PO PRN PRN (Reason: Anxiety) RF: 0 ferrous gluconate 324 mg (37.5 mg iron) tablet 324 mg PO DAILY RF: 0 Primary Care Provider: Carol Gonzalez Referrals: Carol Gonzalez PA [Primary Care Provider] - Activity Restrictions/Additional Instructions: Today you were evaluated for palpitations. The EKG showed a normal heart rhythm with no signs of heart attack. Your blood work looks normal. You may be having palpitations from decreasing her anxiety meds. At this time you are safe to go home and follow-up with your PCP. If your symptoms worsen or you develop chest pain or shortness of breath please come back to the ER. Disposition Disposition: Home, Self Care Discharge Date/Time: 05/03/21 19:40
[2021-05-03 18:34] LABS: Absolute Lymphocyte Count 1.07 X10^3/uL (0.83-4.51); Absolute Neutrophil Count 3.2 X10^3/uL (2.0-7.7); Basophil# 0.03 X10^3/uL; Basophil% 0.6 % (0-1); Eosinophil# 0.05 X10^3/uL; Hematocrit 40.1 % (37-47); Hemoglobin 11.8 g/dL (12.0-15.0); Lymphocyte # 1.07 X10^3/ul (0.83-4.51); Lymphocyte % 22.4 % (19-41); Mean Corp Hgb Conc 29.4 g/dL (32-36); Mean Corpuscular Hgb 24.1 pg (27.0-32.0); Mean Platelet Vol. 9.6 fl (6.2-12.0); Monocyte# 0.37 X10^3/uL; Monocyte% 7.8 % (0-10); NRBC Flagged by Analyzer 0 % (0-5); Neutrophil # 3.24 X10^3/uL (2.7-7.7); Platelet Count 198 K/mm3 (150-450); RBC Distribution Width CV 15.8 % (11.6-14.6); RBC Distribution Width SD 46.6 fl (35.1-43.9); Red Blood Count 4.89 M/mm3 (4.2-5.4); White Blood Count 4.8 K/mm3 (4.4-11.0)
[2021-05-03 18:48] LABS: Anion Gap 5 (5-15); BUN 20 mg/dL (7-18); BUN/Creat Ratio 16.3 RATIO (10-20); Calcium,Total 8.5 mg/dL (8.5-10.1); Chloride 111 mmol/L (98-107); Creatinine, Serum 1.23 mg/dL (0.55-1.02); EST Glomerular Filtration Rate 47 mL/min (>60); Est Glom Filt Rate - Afr Amer 57 mL/min (>60); Estimated Creatinine Clearance 44.96 ml/min; Glucose 96 mg/dL (74-106); Potassium 4.2 mmol/L (3.5-5.1); Sodium Level 140 mmol/L (136-145)
[2021-05-03 19:40] VITALS: PULSE 65; RESP 18
== END 2021-05-03 19:40 | disposition home or self-care (01) ==
PROVIDERS: Emergency Provider Physician Assistant; PCP Physician Assistant; Visit Provider Physician Assistant
DX: R00.2 Palpitations (principal); F41.9 Anxiety disorder, unspecified; Z87.891 Personal history of nicotine dependence; F32.A Depression, unspecified; K21.9 Gastro-esophageal reflux disease without esophagitis; Z79.899 Other long term (current) drug therapy
CPT/HCPCS: 80048; 85025; 93005; 99283; A4216

== ENCOUNTER 2021-11-22 15:09 | Emergency (ER) | payer MEDICAID, SELFPAY ==
[2021-11-22 15:09] VITALS: BP 120/77; PULSE 101; RESP 16; TEMP 36.6; O2SAT 96; BMI 25.8
[2021-11-22 15:11] VITALS: BP 120/77; PULSE 101; RESP 16; TEMP 36.6; O2SAT 96
[2021-11-22 15:51] LABS: Absolute Lymphocyte Count 0.94 X10^3/uL (0.83-4.51); Absolute Neutrophil Count 6.3 X10^3/uL (2.0-7.7); Basophil# 0.03 X10^3/uL; Basophil% 0.4 % (0-1); Eosinophil# 0.08 X10^3/uL; Hematocrit 40.7 % (37-47); Hemoglobin 12.9 g/dL (12.0-15.0); Lymphocyte # 0.94 X10^3/ul (0.83-4.51); Lymphocyte % 11.8 % (19-41); Mean Corp Hgb Conc 31.7 g/dL (32-36); Mean Corpuscular Hgb 27.8 pg (27.0-32.0); Mean Corpuscular Volume 87.7 fL (81-99); Mean Platelet Vol. 10.5 fl (6.2-12.0); Monocyte# 0.61 X10^3/uL; Monocyte% 7.7 % (0-10); NRBC Flagged by Analyzer 0 % (0-5); Neutrophil # 6.29 X10^3/uL (2.7-7.7); Neutrophil % 78.8 % (47-70); Platelet Count 188 K/mm3 (150-450); RBC Distribution Width CV 13.6 % (11.6-14.6); RBC Distribution Width SD 43.8 fl (35.1-43.9); Red Blood Count 4.64 M/mm3 (4.2-5.4)
--- NOTE | 2021-11-22 15:58 | CT_ITS ---
STUDY: CT ABDOMEN AND PELVIS WITHOUT CONTRAST REASON FOR EXAM: Female, 60 years old. left flank and LLQ pain. HISTORY OF KIDNEY STONES AND DIVERTICULITIS. PRIOR CHOLECYSTECTOMY RADIATION DOSAGE (If Supplied By Facility): CTDIvol = ( 8.76 ) mGy, DLP = ( 422.59 ) mGycm TECHNIQUE: Transaxial images were obtained from the dome of the diaphragm to the symphysis pubis without oral contrast, and without intravenous contrast. Sagittal and coronal images were reconstructed. Individualized dose optimization techniques were used for this CT. COMPARISON: 09/17/2020 FINDINGS: The visualized lung bases are unremarkable. The visualized portions of the heart are within normal limits. There is decreased attenuation of the liver consistent with steatosis. There are surgical clips in the gallbladder fossa consistent with a prior cholecystectomy. Normal spleen. Normal pancreas. Normal bilateral adrenal glands. Fat density lesion in the inferior right kidney measures 8.4 mm, compatible with a small angiomyolipoma. There is moderate cortical atrophy of the left kidney, consistent with chronic medical renal disease. Moderate left hydronephrosis and hydroureter with multiple calculi identified in the mid to distal left ureter, as seen on image 118 of series 2, image 132 and image 143. There is also a potential calculus just below the left UPJ on image 66 of series 601. Calculus of the inferior left kidney is seen on image 75 series 2. Normal visualized stomach. Normal small intestine. There are multiple colonic diverticula consistent with diverticulosis. The appendix is visualized and appears normal. There is diffuse atherosclerotic calcification of the abdominal aorta, without a demonstrated aneurysm. Normal inferior vena cava. Normal retroperitoneum. Nondistended urinary bladder. There is a small umbilical hernia containing fat. Normal osseous structures. CT/Abdomen/Pelvis without Cont IMPRESSION: 1. Multiple left ureteral calculi with left hydronephrosis and hydroureter. 2. Chronic changes, as above. Electronically Signed: Jonathon Rich MD ([place]) at 16:45 EDT ,
--- NOTE | 2021-11-22 16:02 | EDS_ITS ---
HPI History of Present Illness Chief Complaint: Flank Pain Informant: patient Narrative Narrative: Patient complains of dysuria frequency urgency slight hematuria and some left flank pain. She thinks this started yesterday afternoon. She has a history of both urinary tract infections frequently, kidney stones and diverticulitis. She denies nausea vomiting or change in any bowel habits though. No fevers or chills. Nothing really makes the pain better or worse except leaning forward in the sitting position sometimes helps it. She is still eating and drinking. She has not been having fevers. [facility] Medical History Anxiety Depression Diverticulosis GERD (gastroesophageal reflux disease) Kidney stones Home Medications citalopram 20 mg tablet 40 mg PO DAILY depression 06/05/13 [History Last Taken 04/30/18 10:00] Omeprazole [Prilosec] 40 mg PO BID gerd 09/26/14 [History Last Taken 04/30/18 10:00] clonazepam 0.5 mg tablet (Klonopin) 0.25 mg PO PRN PRN Anxiety 09/06/17 [History Last Taken 04/30/18 22:00] ferrous gluconate 324 mg (37.5 mg iron) tablet 324 mg PO DAILY 05/03/21 [History Last Taken Unknown] ondansetron 4 mg disintegrating tablet 4 mg PO Q8H PRN nausea and vomiting #10 tabs 11/22/21 [Rx Last Taken Unknown] oxycodone-acetaminophen 5 mg-325 mg tablet (Percocet) 1 tab PO Q6H PRN pain 3 days #12 tabs 11/22/21 [Rx Last Taken Unknown] sulfamethoxazole 800 mg-trimethoprim 160 mg tablet (Bactrim DS) 1 tab PO BID #20 tabs 11/22/21 [Rx Last Taken Unknown] tamsulosin 0.4 mg capsule (Flomax) 0.4 mg PO DAILY #10 caps 11/22/21 [Rx Last Taken Unknown] Allergy/AdvReac Type Severity Reaction Status Date / Time Egg Derived AdvReac Nausea/Vom/ Verified 11/22/21 15:11 Diarrhea prednisone AdvReac Other Verified 11/22/21 15:11 Surgical History History of cholecystectomy Social History Smoking Status: Former smoker ROS ROS ED Constitutional Constitutional ED: Denies chills or fever(s) ENT ENT ED: Denies rhinorrhea or sore throat Cardiovascular Cardiovascular: Denies chest pain Respiratory/Chest Respiratory/Chest: Denies cough or dyspnea Gastrointestinal Gastrointestinal: Reports abdominal pain; Denies constipation, diarrhea, nausea or vomiting Genitourinary Genitourinary ED: Reports dysuria, hematuria and urinary frequency Musculoskeletal Musculoskeletal: Reports back pain Integumentary Denies rash Neurologic Neurologic: Denies paresthesias or weakness Psychiatric Psychiatric: Reports anxiety Endocrine Endocrinology: Denies polydipsia Hematologic/Lymphatic Hematologic/Lymphatic: Denies easy bruising Allergic/Immunologic Allergic/Immunologic ED: Denies urticaria EXAM Physical Exam Const Vital Signs: 11/22/21 15:09 11/22/21 15:11 Temperature 97.8 F 97.8 F Temperature Source Temporal Temporal Pulse Rate 101 H 101 H Respiratory Rate 16 16 Blood Pressure 120/77 120/77 Blood Pressure Mean 91 91 Pulse Ox 96 96 Oxygen Delivery Method Room Air Room Air Positive well nourished and well developed General Appearance ED: well developed and NAD HEENT Reports moist mucous membranes Eyes General Eye ED: Negative for scleral icterus Neck supple Resp normal respiratory effort and clear to auscultation bilaterally Resp Narrative: No pain with deep breath Auscultation: Negative for rales, rhonchi or wheezes Cardio regular rate and regular rhythm Rate: other Other Details: Normal peripheral pulses x4 GI normal to inspection, nondistended, normoactive bowel sounds GI Narrative: There is slight variable left flank and left lower quadrant tenderness but is quite mild and variable. There is no rebound guarding or masses noted. Back/Spine Back/Spine Narrative: Patient does have some left CVA tenderness. But she also has tenderness with just soft to palpation on the skin. Neuro oriented x3 Psych mental status grossly normal Skin no rashes or lesions noted and no wounds MDM MDM MDM Narrative Medical decision making narrative: Urine does show a large number of red cells but there is also white cells seen. It is also not a clean-catch with 10-25 squamous epithelial cells. Urine is cloudy. Is positive nitrites. CT scan does show some stones in the left with some hydro. Creatinine is 1.39 but that is really not far off her baseline. Remainder of electrolytes show no marked abnormalities. CBC including her white count are normal. Patient's recheck. She is feeling much better. She has had no fevers chills nausea vomiting. She has no elevated white count. I did discuss with urology, Dr. Euceda. We will treat this patient with antibiotics and pain meds. I have talked with her extensively that she should have a very low threshold to return. If she develops worsening pain, nausea, vomiting, fevers myalgias or just does not feel well she should come back. Her symptoms started all of a sudden yesterday with flank pain. She then developed a urinary symptoms. We will treat as though she has a UTI based on the urinalysis. Her symptoms match more of an acute onset of pain of kidney stone. A urine culture will be sent. Lab Data Attestation: I reviewed the patient's lab results. Labs: Laboratory Results - last 24 hr 11/22/21 11/22/21 11/22/21 15:45 15:45 16:15 WBC 8.0 RBC 4.64 Hgb 12.9 Hct 40.7 MCV 87.7 MCH 27.8 MCHC 31.7 L RDW Std Deviation 43.8 RDW Coeff of Rinku 13.6 Plt Count 188 MPV 10.5 Immature Gran % (Auto) 0.300 Neut % (Auto) 78.8 H Lymph % (Auto) 11.8 L [place] % (Auto) 7.7 Eos % (Auto) 1.0 Baso % (Auto) 0.4 Absolute Neuts (auto) 6.3 Absolute Lymphs (auto) 0.94 Nucleated RBC % 0 Sodium 138 Potassium 4.8 Chloride 110 H Carbon Dioxide 22.0 Anion Gap 6 BUN 20 H Creatinine 1.39 H Estim Creat Clear Calc 39.79 Est GFR (MDRD) Af Amer 49 L Est GFR (MDRD) Non-Af 41 L BUN/Creatinine Ratio 14.4 Glucose 105 Calcium 8.7 Urine Color Red Urine Clarity Cloudy Urine pH 8.0 Ur Specific [place] 1.015 Urine Protein 100 H Urine Glucose (UA) Normal Urine Ketones Negative Urine Occult Blood 250 H Urine Nitrite Positive H Urine Bilirubin Negative Urine Urobilinogen Normal Ur Leukocyte Esterase 500 H Urine RBC > 100 SEEN Urine WBC >100 SEEN Ur Squamous Epith Cells 10-25 SEEN Urine Bacteria 4+ Urine Mucus 0 SEEN Radiography Diagnostic Testing: Clinical Impression(s) from Imaging Studies Abdomen/Pelvis CT 11/22/21 15:58 IMPRESSION: 1. Multiple left ureteral calculi with left hydronephrosis and hydroureter. 2. Chronic changes, as above. Electronically Signed: Jonathon Rich MD ([place]) at 16:45 EDT Reading Location ID and State: [facility] / [place] , Service support , Discharge Plan Triage Chief Complaint: Flank Pain ED Provider: Uche Lopez Dx/Rx/DC Orders Clinical Impression: Kidney stone on left side, UTI (urinary tract infection) Instructions: UTIs Understanding, ED Kidney Stone w/ Colic Prescriptions: New oxycodone-acetaminophen [Percocet] 5-325 mg tablet 1 tab PO Q6H PRN (Reason: pain) 3 Days Qty: 12 0RF ondansetron 4 mg tablet,disintegrating 4 mg PO Q8H PRN (Reason: nausea and vomiting) Qty: 10 0RF sulfamethoxazole-trimethoprim [Bactrim DS] 800-160 mg tablet 1 tab PO BID Qty: 20 0RF tamsulosin [Flomax] 0.4 mg capsule 0.4 mg PO DAILY Qty: 10 0RF No Action citalopram 20 MG tablet 40 mg PO DAILY Label Comments: depression Omeprazole [Prilosec] 40 MG capsule 40 mg PO BID Label Comments: HEART BURN clonazepam [Klonopin] 0.5 MG tablet 0.25 mg PO PRN PRN (Reason: Anxiety) ferrous gluconate 324 mg (37.5 mg iron) tablet 324 mg PO DAILY Primary Care Provider: Carol Gonzalez Referrals: Antoinette Euceda MD [Med Staff - Active Staff] - As soon as possible Carol Gonzalez PA [Primary Care Provider] - Disposition Disposition: Home, Self Care
[2021-11-22] MEDS: 0.9% Normal Saline 1,000 ML 1000 ML IV (16:13)
[2021-11-22] MEDS: Ondansetron 4 MG/2 ML Vial IV (16:14)
[2021-11-22] MEDS: Morphine 4 MG/ML Syringe IV ×2 (16:14→17:03)
[2021-11-22 16:22] LABS: Mucous, Urine 0 SEEN /hpf (<or=2+)
[2021-11-22 16:22] LABS: Anion Gap 6 (5-15); BUN 20 mg/dL (7-18); BUN/Creat Ratio 14.4 RATIO (10-20); Calcium,Total 8.7 mg/dL (8.5-10.1); Chloride 110 mmol/L (98-107); Creatinine, Serum 1.39 mg/dL (0.55-1.02); EST Glomerular Filtration Rate 41 mL/min (>60); Est Glom Filt Rate - Afr Amer 49 mL/min (>60); Estimated Creatinine Clearance 39.79 ml/min; Glucose 105 mg/dL (74-106); Potassium 4.8 mmol/L (3.5-5.1); Sodium Level 138 mmol/L (136-145)
[2021-11-22 16:26] LABS: Color, Urine Red (Yellow); Glucose, Dipstick Normal (Normal); Ketone-Dipstick Negative (Negative); Leukocyte Esterase-Dipstick 500 /ul (Negative); Nitrite-Dipstick Positive (Negative); Occult Blood-Urine 250 /ul (Negative); Protein-Dipstick 100 mg/dl (Negative); Specific Gravity, Urine 1.015 (1.002-1.030); Urine Bilirubin Dipstick Negative (Negative); Urine Clarity Cloudy (Clear); Urine Urobilinogen Normal (Normal)
[2021-11-22 16:41] LABS: Bacteria 4+ /hpf (None Seen); Red Blood Cells-Urine > 100 SEEN /hpf (0-5); Squamous Epithelial Cells - UA 10-25 SEEN /hpf (5-10); White Blood Cells >100 SEEN /hpf (0-5)
[2021-11-22] MEDS: Ceftriaxone 1 GM/50 ML BAG IV (17:14)
[2021-11-22 18:30] VITALS: BP 124/69; PULSE 72; RESP 15; O2SAT 98
== END 2021-11-22 18:31 | disposition home or self-care (01) ==
PROVIDERS: Emergency Provider Emergency Medicine; PCP Physician Assistant; Visit Provider Emergency Medicine
DX: N39.0 Urinary tract infection, site not specified (principal); N20.0 Calculus of kidney; F32.A Depression, unspecified; F41.9 Anxiety disorder, unspecified; R35.0 Frequency of micturition; R30.0 Dysuria; R82.89 Other abnormal findings on cytological and histological examination of urine; R31.9 Hematuria, unspecified; Z87.440 Personal history of urinary (tract) infections; Z87.442 Personal history of urinary calculi; Z87.19 Personal history of other diseases of the digestive system; Z79.899 Other long term (current) drug therapy; Z87.891 Personal history of nicotine dependence
CPT/HCPCS: 74176; 80048; 81001; 85025; 87077; 87086; 87088; 87186; 96361; 96374; 96375; 96376; 99282; J7030; A4216; J2405

== ENCOUNTER 2021-11-26 18:02 | Emergency (ER) | payer MEDICAID, SELFPAY ==
[2021-11-26] VITALS (7 sets, daily range): BP systolic 117–139; BP diastolic 68–85; PULSE 61–93; RESP 15–19; TEMP 36.8; O2SAT 96–99; BMI 25.8
--- NOTE | 2021-11-26 18:28 | EKG12_ITS ---
Test Reason : CP Blood Pressure : / mmHG Vent. Rate : 084 BPM Atrial Rate : 084 BPM P-R Int : 148 ms QRS Dur : 078 ms QT Int : 402 ms P-R-T Axes : 038 061 -19 degrees QTc Int : 475 ms Normal sinus rhythm Normal ECG Confirmed by NEAL BARR, KALEIGH ([id number]), editor in chief PONCE TINSLEY ([id number]) on 11/28/2021 2:04:35 PM Referred By: PL Confirmed By:DENYS DE JESUS MD
--- NOTE | 2021-11-26 18:40 | RAD_ITS ---
STUDY: X-RAY CHEST REASON FOR EXAM: Female, 60 years old. 5 days sober after 2+ years of alcohol abuse. Chest pain and palpitations for one day. TECHNIQUE: PA and lateral views of the chest. COMPARISON: Chest, 02/28/2019 FINDINGS: The lungs are clear and expanded. No new mass or infiltrate. There is no demonstrated pleural abnormality. Normal size heart. Normal mediastinum and giovanna. Normal visualized pulmonary arteries. Normal visualized aortic arch and descending thoracic aorta. Normal visualized thoracic spine. Normal visualized ribs, clavicles, and shoulders. Stable retrocardiac hiatal hernia RAD/Chest PA and Lateral IMPRESSION: Hiatal hernia without acute cardiopulmonary disease or major interval change Electronically Signed: Сергей Carlson DO at 18:52 EDT ,
--- NOTE | 2021-11-26 18:41 | ED.VIS.CHEST ---
HPI History of Present Illness Chief Complaint: Chest Pain Informant: patient Narrative Narrative: Presenting for feelings of palpitations for the last of her neck radiates down to the left side., Go over the past 2 days. Lasts 1 second. No dyspnea or cough. No history of similar. She vapes. No family history of MIs at young age. Denies hypertension diabetes or hyperlipidemia. History of anxiety depression along with GERD. She was seen here Wednesday for diagnosed kidney stones. She states she stopped drinking alcohol 5 days ago. Just mild anxious feeling however no nausea or vomiting. She denies any caffeine use. [facility] Medical History Anxiety Depression Diverticulosis GERD (gastroesophageal reflux disease) Kidney stones Home Medications citalopram 20 mg tablet 40 mg PO DAILY depression 06/05/13 [History Last Taken 04/30/18 10:00] Omeprazole [Prilosec] 40 mg PO BID gerd 09/26/14 [History Last Taken 04/30/18 10:00] clonazepam 0.5 mg tablet (Klonopin) 0.25 mg PO PRN PRN Anxiety 09/06/17 [History Last Taken 04/30/18 22:00] ferrous gluconate 324 mg (37.5 mg iron) tablet 324 mg PO DAILY 05/03/21 [History Last Taken Unknown] ondansetron 4 mg disintegrating tablet 4 mg PO Q8H PRN nausea and vomiting #10 tabs 11/22/21 [Rx Last Taken Unknown] sulfamethoxazole 800 mg-trimethoprim 160 mg tablet (Bactrim DS) 1 tab PO BID #20 tabs 11/22/21 [Rx Last Taken Unknown] tamsulosin 0.4 mg capsule (Flomax) 0.4 mg PO DAILY #10 caps 11/22/21 [Rx Last Taken Unknown] Allergy/AdvReac Type Severity Reaction Status Date / Time Egg Derived AdvReac Nausea/Vom/ Verified 11/26/21 18:27 Diarrhea prednisone AdvReac Other Verified 11/26/21 18:27 Surgical History History of cholecystectomy Social History Smoking Status: Former smoker ROS ROS ED Constitutional Constitutional ED: Denies chills, fever(s) or sweats Eyes Eyes: Denies change in vision ENT ENT ED: Denies dysphagia or sore throat Cardiovascular Cardiovascular: Reports chest pain and palpitations; Denies leg edema or racing heartbeat Respiratory/Chest Respiratory/Chest: Denies cough, dyspnea or dyspnea on exertion Gastrointestinal Gastrointestinal: Denies abdominal pain, diarrhea, nausea or vomiting Genitourinary Genitourinary ED: Denies dysuria, hematuria or urinary frequency Musculoskeletal Musculoskeletal: Denies back pain, extremity pain or neck pain Integumentary Denies rash or wounds Neurologic Neurologic: Denies headache(s), paresthesias or weakness EXAM Physical Exam Const Vital Signs: 11/26/21 18:03 11/26/21 18:24 11/26/21 18:37 Temperature 98.3 F Temperature Source Temporal Pulse Rate 93 Respiratory Rate 16 Respiratory Effort Normal Non-Labored Blood Pressure 139/85 H Blood Pressure Mean 103 Pulse Ox 97 97 Oxygen Delivery Method Room Air Room Air 11/26/21 19:15 11/26/21 20:00 11/26/21 21:58 Temperature Temperature Source Pulse Rate 67 62 63 Respiratory Rate 18 15 15 Respiratory Effort Blood Pressure 117/83 H 128/73 H 120/68 Blood Pressure Mean 94 91 85 Pulse Ox 96 99 99 Oxygen Delivery Method Room Air Room Air 11/26/21 22:00 11/26/21 23:00 Temperature Temperature Source Pulse Rate 61 69 Respiratory Rate 19 H 18 Respiratory Effort Blood Pressure 121/78 H 129/71 H Blood Pressure Mean 92 Pulse Ox 98 96 Oxygen Delivery Method Room Air Positive well nourished and well developed General Appearance ED: well developed and NAD HEENT Reports moist mucous membranes normocephalic and atraumatic Eyes PERRL, EOMs intact bilaterally and conjunctivae normal General Eye ED: Yes normal appearance of both eyes Neck no lymphadenopathy and supple General: Negative for tenderness Chest Wall Chest: Negative for tenderness Resp normal respiratory effort and normal air movement Effort and Inspection: symmetric chest movement; Negative for respiratory distress Cardio regular rate, regular rhythm and no murmurs Peripheral Pulses: pulses 2+ throughout GI normal to inspection, nondistended, normoactive bowel sounds and non-tender Palpation: Negative for guarding or rebound tenderness present Back/Spine no CVA tenderness and no thoracic nor lumbar tenderness Extremity normal to inspection General Extremety ED: Negative for edema or tenderness General Extremity: Negative for edema Neuro oriented x3 and no sensory deficits noted Sensorium / Orientation: awake and alert Skin no rashes or lesions noted and no wounds MDM MDM MDM Narrative Medical decision making narrative: Patient EKG new T wave inversion in 3 flattening in aVF. Intermittent symptoms on the monitor technician she had had symptomatic PVCs. Chest x-ray 2 views reviewed by myself read by radiology notes hiatal hernia no other acute process. She is on a PPI. Labs stable creatinine 1.43 stable from previous. Troponin initial returned at 3. On reevaluation occasionally will have her symptomatic PVCs. This would be pretty atypical of any ACS concerns. We will plan for delta troponin. Of note evaluate her visit from 3 days ago with her kidney stone with infection. Culture grew out Proteus sensitive to her Bactrim. I discussed results with patient this to continue her Bactrim. She has not made appointment with urology at this time. She was supposed to follow-up with Dr. Euceda. Follow-up information will be given again. Lab Data Attestation: I reviewed the patient's lab results. Labs: Laboratory Results - last 24 hr 11/26/21 11/26/21 11/26/21 18:35 18:35 22:00 WBC 6.1 RBC 4.48 Hgb 12.4 Hct 39.5 MCV 88.2 MCH 27.7 MCHC 31.4 L RDW Std Deviation 43.4 RDW Coeff of Rinku 13.5 Plt Count 205 MPV 10.1 Immature Gran % (Auto) 0.500 Neut % (Auto) 69.0 Lymph % (Auto) 21.4 [place] % (Auto) 7.7 Eos % (Auto) 0.7 Baso % (Auto) 0.7 Absolute Neuts (auto) 4.2 Absolute Lymphs (auto) 1.30 Nucleated RBC % 0 Sodium 139 Potassium 4.1 Chloride 109 H Carbon Dioxide 23.0 Anion Gap 7 BUN 16 Creatinine 1.43 H Estim Creat Clear Calc 38.68 Est GFR (MDRD) Af Amer 48 L Est GFR (MDRD) Non-Af 40 L BUN/Creatinine Ratio 11.2 Glucose 109 H Calcium 9.2 Troponin I High Sens 3 < 3 L Radiography Diagnostic Testing: Clinical Impression(s) from Imaging Studies Chest X-Ray 11/26/21 18:40 IMPRESSION: Hiatal hernia without acute cardiopulmonary disease or major interval change Electronically Signed: Сергей Carlson DO at 18:52 EDT Reading Location ID and State: [address] [place] [address] Tel [phone], Service support , EKG Initial EKG: Attestation: I personally reviewed and interpreted this EKG as follows: Comments: Sinus rate of 84, no ST changes. T wave inversions in leads III and flattening in aVF. New changes compared to April 2021. Discharge Plan Triage Chief Complaint: Chest Pain ED Provider: Jack Howe Dx/Rx/DC Orders Clinical Impression: Symptomatic PVCs, Kidney stone on left side, Palpitation, Atypical chest pain Instructions: Kidney Stones: Your Evaluation, PVCs, ED Palpitations Prescriptions: No Action citalopram 20 MG tablet 40 mg PO DAILY Label Comments: depression Omeprazole [Prilosec] 40 MG capsule 40 mg PO BID Label Comments: HEART BURN clonazepam [Klonopin] 0.5 MG tablet 0.25 mg PO PRN PRN (Reason: Anxiety) ferrous gluconate 324 mg (37.5 mg iron) tablet 324 mg PO DAILY ondansetron 4 mg tablet,disintegrating 4 mg PO Q8H PRN (Reason: nausea and vomiting) Qty: 10 0RF sulfamethoxazole-trimethoprim [Bactrim DS] 800-160 mg tablet 1 tab PO BID Qty: 20 0RF tamsulosin [Flomax] 0.4 mg capsule 0.4 mg PO DAILY Qty: 10 0RF Primary Care Provider: Carol Gonzalez Referrals: Antoinette Euceda MD [Med Staff - Active Staff] - 3-5 Days Carol Gonzalez PA [Primary Care Provider] - 3-5 Days Activity Restrictions/Additional Instructions: You have symptomatic PVCs during monitoring. Your EKG notes new T wave inversion in lead III and flattening in aVF. 2 troponins are negative. Follow-up with your doctor for further testing breathing as an outpatient. Return if any worsening symptoms. Edition you are diagnosed with kidney stones 3 days ago with UTI your culture was positive for Proteus bacteria. Is sensitive to Bactrim. Make sure you take and finish your antibiotic. You had stones in your left ureter. Follow-up with urology. Disposition Disposition: Home, Self Care Discharge Date/Time: 11/26/21 23:06
[2021-11-26 18:54] LABS: Absolute Neutrophil Count 4.2 X10^3/uL (2.0-7.7); Basophil# 0.04 X10^3/uL; Basophil% 0.7 % (0-1); Eosinophil# 0.04 X10^3/uL; Eosinophils% 0.7 % (0-5); Hematocrit 39.5 % (37-47); Hemoglobin 12.4 g/dL (12.0-15.0); Lymphocyte % 21.4 % (19-41); Mean Corp Hgb Conc 31.4 g/dL (32-36); Mean Corpuscular Hgb 27.7 pg (27.0-32.0); Mean Corpuscular Volume 88.2 fL (81-99); Mean Platelet Vol. 10.1 fl (6.2-12.0); Monocyte# 0.47 X10^3/uL; Monocyte% 7.7 % (0-10); NRBC Flagged by Analyzer 0 % (0-5); Neutrophil # 4.19 X10^3/uL (2.7-7.7); Platelet Count 205 K/mm3 (150-450); RBC Distribution Width CV 13.5 % (11.6-14.6); RBC Distribution Width SD 43.4 fl (35.1-43.9); Red Blood Count 4.48 M/mm3 (4.2-5.4); White Blood Count 6.1 K/mm3 (4.4-11.0)
[2021-11-26 19:17] LABS: Anion Gap 7 (5-15); BUN 16 mg/dL (7-18); BUN/Creat Ratio 11.2 RATIO (10-20); Calcium,Total 9.2 mg/dL (8.5-10.1); Chloride 109 mmol/L (98-107); Creatinine, Serum 1.43 mg/dL (0.55-1.02); EST Glomerular Filtration Rate 40 mL/min (>60); Est Glom Filt Rate - Afr Amer 48 mL/min (>60); Estimated Creatinine Clearance 38.68 ml/min; Glucose 109 mg/dL (74-106); Potassium 4.1 mmol/L (3.5-5.1); Sodium Level 139 mmol/L (136-145); Troponin-I HS (w/2H Reflex) 3 pg/mL (3.0-54.0)
[2021-11-26 20:51] LABS: Reflex Troponin-HS? (from REC) Y
[2021-11-26 22:31] LABS: Troponin-I HS < 3 pg/mL (3.0-54.0)
== END 2021-11-26 23:06 | disposition home or self-care (01) ==
PROVIDERS: Emergency Provider Emergency Medicine; PCP Physician Assistant; Visit Provider Emergency Medicine
DX: R07.89 Other chest pain (principal); I49.3 Ventricular premature depolarization; N20.0 Calculus of kidney; K44.9 Diaphragmatic hernia without obstruction or gangrene; F41.9 Anxiety disorder, unspecified; F32.A Depression, unspecified; Z79.899 Other long term (current) drug therapy; Z87.891 Personal history of nicotine dependence
CPT/HCPCS: 71046; 80048; 84484; 85025; 93005; 99285; A4216

== ENCOUNTER 2022-01-21 15:20 | Emergency (ER) | payer MEDICAID, SELFPAY ==
[2022-01-21 15:21] VITALS: BP 133/80; PULSE 107; RESP 14; TEMP 36.3; O2SAT 100; BMI 25.9
[2022-01-21 16:07] LABS: Absolute Lymphocyte Count 0.96 X10^3/uL (0.83-4.51); Absolute Neutrophil Count 5.1 X10^3/uL (2.0-7.7); Basophil# 0.02 X10^3/uL; Basophil% 0.3 % (0-1); Eosinophil# 0.06 X10^3/uL; Eosinophils% 0.9 % (0-5); Hematocrit 40.6 % (37-47); Hemoglobin 12.8 g/dL (12.0-15.0); Lymphocyte # 0.96 X10^3/ul (0.83-4.51); Lymphocyte % 14.2 % (19-41); Mean Corp Hgb Conc 31.5 g/dL (32-36); Mean Corpuscular Hgb 27.4 pg (27.0-32.0); Mean Corpuscular Volume 86.8 fL (81-99); Mean Platelet Vol. 11.2 fl (6.2-12.0); Monocyte% 8.9 % (0-10); NRBC Flagged by Analyzer 0 % (0-5); Neutrophil # 5.08 X10^3/uL (2.7-7.7); Neutrophil % 75.3 % (47-70); POSITIVE COUNT YES; Platelet Count 161 K/mm3 (150-450); RBC Distribution Width SD 43.2 fl (35.1-43.9); Red Blood Count 4.68 M/mm3 (4.2-5.4); White Blood Count 6.8 K/mm3 (4.4-11.0)
[2022-01-21 16:08] LABS: Differential Indicated SCAN CRITERIA MET
[2022-01-21 16:19] LABS: Anion Gap 6 (5-15); BUN 14 mg/dL (7-18); BUN/Creat Ratio 11.7 RATIO (10-20); Calcium,Total 9.3 mg/dL (8.5-10.1); Chloride 109 mmol/L (98-107); EST Glomerular Filtration Rate 48 mL/min (>60); Est Glom Filt Rate - Afr Amer 59 mL/min (>60); Glucose 109 mg/dL (74-106); Potassium 4.4 mmol/L (3.5-5.1); Sodium Level 139 mmol/L (136-145)
[2022-01-21 16:30] LABS: Mucous, Urine 0 SEEN /hpf (<or=2+); Red Blood Cells-Urine 0 SEEN /hpf (0-5)
[2022-01-21 16:34] LABS: Color, Urine Yellow (Yellow); Glucose, Dipstick Normal (Normal); Ketone-Dipstick Negative (Negative); Leukocyte Esterase-Dipstick 500 /ul (Negative); Nitrite-Dipstick Positive (Negative); Occult Blood-Urine Negative /ul (Negative); Protein-Dipstick Negative (Negative); Urine Bilirubin Dipstick Negative (Negative); Urine Clarity Sl. Cloudy (Clear); Urine Urobilinogen Normal (Normal)
[2022-01-21 16:45] LABS: Platelet Estimate ADEQUATE (ADEQ); Red Cell Morphology NORM C+C NORMAL (NORM C&C)
[2022-01-21 16:57] LABS: Bacteria 3+ /hpf (None Seen); Squamous Epithelial Cells - UA 0-5 SEEN /hpf (5-10); Transitional Epithelial - Ur 0-5 SEEN /hpf (0-5); White Blood Cells 0-5 SEEN /hpf (0-5)
[2022-01-21 17:21] VITALS: BP 148/63; PULSE 72; RESP 16; O2SAT 99
--- NOTE | 2022-01-21 17:31 | ED.VIS.GI ---
HPI HPI - GI History of Present Illness Chief Complaint: Abd Pain Informant: patient Abdominal Pain/Flank Pain Onset: Days (several) Context: Gradual Onset Timing: Continuous Quality: Aching Location: Diffuse Current Severity: Moderate Maximum Severity: Moderate Worsened by: Nothing Relieved by: Nothing Nausea/Vomiting/Emesis GI Symptom: Positive for Nausea; Negative for Vomiting Diarrhea/Melena/Hematochezia GI Symptom: Positive for Diarrhea; Negative for Melena or Hematochezia Onset: Days (3; gone now/today) Stool Quality: Positive for Loose; Negative for Black, Maroon or BRB per rectum Severity: Moderate Associated Symptoms Associated Symptoms: Negative for Dysuria, Frequency, Hematuria or Urgency Narrative Narrative: Patient with diffuse abdominal pain and diarrhea for the last couple days, she has a diarrhea is gone, she is nauseated but no vomiting, no fevers or chills, and the pain is diffuse. Radiates into her back a little. She drinks 2-3 drinks daily she states of alcohol, she has noticed no worsening with that. No chest symptoms or pleuritic nature of the discomfort. Prior cholecystectomy, no other abdominal surgeries. [facility] Medical History Anxiety Depression Diverticulosis GERD (gastroesophageal reflux disease) Kidney stones Home Medications citalopram 20 mg tablet 40 mg PO DAILY depression 06/05/13 [History Last Taken 04/30/18 10:00] Omeprazole [Prilosec] 40 mg PO BID gerd 09/26/14 [History Last Taken 04/30/18 10:00] clonazepam 0.5 mg tablet (Klonopin) 0.25 mg PO PRN PRN Anxiety 09/06/17 [History Last Taken 04/30/18 22:00] amoxicillin 875 mg-potassium clavulanate 125 mg tablet 875 mg PO Q12H #20 TABLETS 01/21/22 [Rx Last Taken Unknown] Allergy/AdvReac Type Severity Reaction Status Date / Time Egg Derived AdvReac Nausea/Vom/ Verified 01/21/22 15:21 Diarrhea prednisone AdvReac Other Verified 01/21/22 15:21 Surgical History History of cholecystectomy Social History Smoking Status: Current every day smoker tobacco type: e-cigarettes ROS ROS ED Constitutional Constitutional ED: Denies chills or fever(s) Eyes Eyes: Denies change in vision or diplopia ENT ENT ED: Denies rhinorrhea or sore throat Cardiovascular Cardiovascular: Denies chest pain or palpitations Respiratory/Chest Respiratory/Chest: Denies cough or dyspnea Gastrointestinal Gastrointestinal: Reports abdominal pain, diarrhea and nausea; Denies vomiting Genitourinary Genitourinary ED: Denies dysuria or hematuria Musculoskeletal Musculoskeletal: Reports back pain; Denies neck pain Integumentary Denies abscess or rash Neurologic Neurologic: Denies headache(s), paresthesias or weakness Psychiatric Psychiatric: Denies anxiety or suicidal thoughts EXAM Physical Exam Const Vital Signs: 01/21/22 15:21 01/21/22 17:21 Temperature 97.3 F L Temperature Source Temporal Pulse Rate 107 H 72 Respiratory Rate 14 16 Blood Pressure 133/80 H 148/63 H Blood Pressure Mean 97 91 Pulse Ox 100 99 Oxygen Delivery Method Room Air Room Air Positive well nourished and well developed General Appearance ED: well developed and NAD HEENT Reports moist mucous membranes normocephalic and atraumatic Eyes PERRL and EOMs intact bilaterally Neck full ROM and supple Resp normal respiratory effort and clear to auscultation bilaterally Cardio regular rate, regular rhythm and no murmurs GI non-distended GI Narrative: Moderately tender left lower quadrant. Mildly tender right upper quadrant. No epigastric or right lower quadrant tenderness or anywhere else, no guarding or rebound tenderness. No palpable masses or pulsatile mass. Auscultation: normoactive bowel sounds Palpation: soft Back/Spine no CVA tenderness General Back: other FROM Extremity normal to inspection General Extremety ED: Negative for edema, pulses abnormal or tenderness General Extremity: Negative for edema or pulses abnormal Neuro oriented x3, CN's II-XII intact bilaterally and no sensory deficits noted Sensorium / Orientation: awake and alert Motor Exam: strength 5/5 throughout Skin no rashes or lesions noted and no wounds MDM MDM MDM Narrative Medical decision making narrative: Blood work unremarkable, urinalysis shows signs of infection without pyuria, bacteria are present, this was sent for culture but she does not have any urinary symptoms. CT of the abdomen/pelvis shows mild sigmoid diverticulitis, no complications and no leukocytosis she is not septic. Pain is well controlled. We can treat this as an outpatient, prescribed Augmentin (less risky than Cipro/Flagyl since she is on citalopram) and advised to follow-up or return if worse, she is comfortable with that plan. Lab Data Attestation: I reviewed the patient's lab results. Labs: Laboratory Results - last 24 hr 01/21/22 01/21/22 01/21/22 15:50 15:50 15:50 WBC 6.8 RBC 4.68 Hgb 12.8 Hct 40.6 MCV 86.8 MCH 27.4 MCHC 31.5 L RDW Std Deviation 43.2 RDW Coeff of Rinku 14.0 Plt Count 161 MPV 11.2 Immature Gran % (Auto) 0.400 Neut % (Auto) 75.3 H Lymph % (Auto) 14.2 L [place] % (Auto) 8.9 Eos % (Auto) 0.9 Baso % (Auto) 0.3 Absolute Neuts (auto) 5.1 Absolute Lymphs (auto) 0.96 Nucleated RBC % 0 Platelet Estimate ADEQUATE RBC Morphology NORM C+C Sodium 139 Potassium 4.4 Chloride 109 H Carbon Dioxide 24.0 Anion Gap 6 BUN 14 Creatinine 1.20 H Estim Creat Clear Calc 45.50 Est GFR (MDRD) Af Amer 59 L Est GFR (MDRD) Non-Af 48 L BUN/Creatinine Ratio 11.7 Glucose 109 H Calcium 9.3 Total Bilirubin 0.80 Direct Bilirubin 0.16 AST 35 ALT 40 Alkaline Phosphatase 71 Total Protein 7.8 Albumin 3.8 Globulin 4.0 Lipase Urine Color Urine Clarity Urine pH Ur Specific [place] Urine Protein Urine Glucose (UA) Urine Ketones Urine Occult Blood Urine Nitrite Urine Bilirubin Urine Urobilinogen Ur Leukocyte Esterase Urine RBC Urine WBC Ur Squamous Epith Cells Ur Transition Epith Cell Urine Bacteria Urine Mucus 01/21/22 01/21/22 15:50 16:25 WBC RBC Hgb Hct MCV MCH MCHC RDW Std Deviation RDW Coeff of Rinku Plt Count MPV Immature Gran % (Auto) Neut % (Auto) Lymph % (Auto) [place] % (Auto) Eos % (Auto) Baso % (Auto) Absolute Neuts (auto) Absolute Lymphs (auto) Nucleated RBC % Platelet Estimate RBC Morphology Sodium Potassium Chloride Carbon Dioxide Anion Gap BUN Creatinine Estim Creat Clear Calc Est GFR (MDRD) Af Amer Est GFR (MDRD) Non-Af BUN/Creatinine Ratio Glucose Calcium Total Bilirubin Direct Bilirubin AST ALT Alkaline Phosphatase Total Protein Albumin Globulin Lipase 101 Urine Color Yellow Urine Clarity Sl. Cloudy Urine pH 7.0 Ur Specific [place] 1.010 Urine Protein Negative Urine Glucose (UA) Normal Urine Ketones Negative Urine Occult Blood Negative Urine Nitrite Positive H Urine Bilirubin Negative Urine Urobilinogen Normal Ur Leukocyte Esterase 500 H Urine RBC 0 SEEN Urine WBC 0-5 SEEN Ur Squamous Epith Cells 0-5 SEEN Ur Transition Epith Cell 0-5 SEEN Urine Bacteria 3+ Urine Mucus 0 SEEN Radiography Diagnostic Testing: Clinical Impression(s) from Imaging Studies Abdomen/Pelvis CT 01/21/22 18:02 IMPRESSION: (NOT LISTED IN ORDER OF SIGNIFICANCE) There is moderate cortical atrophy of the left kidney, consistent with chronic medical renal disease. There is mild acute sigmoid diverticulitis. There is no evidence to suggest abscess formation. Other findings as above. Electronically Signed: Breezy Pulliam MD at 18:33 EDT Reading Location ID and State: [facility] / [place] , Service support , Discharge Plan Triage Chief Complaint: Abd Pain ED Provider: Arjun Rivas Dx/Rx/DC Orders Clinical Impression: Diverticulitis of sigmoid colon Instructions: ED Diverticulitis Prescriptions: New amoxicillin-pot clavulanate [amoxicillin-pot clavulanate] 875-125 mg tablet 875 mg PO Q12H Qty: 20 0RF No Action citalopram 20 MG tablet 40 mg PO DAILY Label Comments: depression Omeprazole [Prilosec] 40 MG capsule 40 mg PO BID Label Comments: HEART BURN clonazepam [Klonopin] 0.5 MG tablet 0.25 mg PO PRN PRN (Reason: Anxiety) Primary Care Provider: Carol Gonzalez Referrals: Carol Gonzalez, PA [Primary Care Provider] - 3-5 Days if not improving Disposition Disposition: Home, Self Care
[2022-01-21] MEDS: Ketorolac 15 MG/ML Vial IV (17:39)
[2022-01-21] MEDS: Ondansetron 4 MG/2 ML Vial IV (17:39)
[2022-01-21] MEDS: 0.9% Normal Saline 1,000 ML 1000 ML IV (17:40)
--- NOTE | 2022-01-21 18:02 | CT_ITS ---
STUDY: CT Abdomen And Pelvis W/ Contrast Injection 01/21/2022 6:30 PM REASON FOR EXAM: Female, 61 years old. ABDOMINAL PAIN llq tenderness, diffuse pain TECHNIQUE: Transaxial images were obtained without oral contrast, and with IV 100mL [id number]-370 intravenous contrast. Individualized dose optimization techniques were used for this CT. COMPARISON: 11.22.21 FINDINGS: The visualized lung bases are unremarkable. The visualized portions of the heart are within normal limits. Unremarkable liver. There are surgical clips in the gallbladder fossa consistent with a prior cholecystectomy. Unremarkable spleen. Unremarkable pancreas. Unremarkable bilateral adrenal glands. No acute findings of the right kidney. There is moderate cortical atrophy of the left kidney, consistent with chronic medical renal disease. There is a small hiatal hernia. Unremarkable small intestine. There is diverticulosis, with thickening of the colon wall, and pericolonic inflammation changes consistent with acute diverticulitis. There is non-visualization of the appendix. There are calcifications of the abdominal aorta. This is consistent for atherosclerotic disease. There is no abdominal aortic aneurysm. Unremarkable inferior vena cava. Subcentimeter mesenteric lymph nodes. Unremarkable urinary bladder. Normal visualized uterus. There is an umbilical hernia containing fat. Unremarkable osseous structures. CT/Abdomen/Pelvis W IV Cont ONLY IMPRESSION: (NOT LISTED IN ORDER OF SIGNIFICANCE) There is moderate cortical atrophy of the left kidney, consistent with chronic medical renal disease. There is mild acute sigmoid diverticulitis. There is no evidence to suggest abscess formation. Other findings as above. Electronically Signed: Breezy Pulliam MD at 18:33 EDT ,
[2022-01-21 18:05] LABS: AST(SGOT) 35 U/L (15-37); Alanine Aminotransfer ALT/SGPT 40 U/L (13-56); Albumin, Serum 3.8 g/dL (3.2-5.0); Alkaline Phosphatase 71 U/L (45-117); Bilirubin, Direct 0.16 mg/dL (0.00-0.30); Protein, Total 7.8 g/dL (6.4-8.2)
[2022-01-21 18:09] LABS: Lipase 101 U/L (73-393)
[2022-01-21 19:21] VITALS: BP 134/78; PULSE 78; RESP 18; O2SAT 99
[2022-01-21] MEDS: Amox/Clavulanate 875 MG Tablet PO (19:30)
== END 2022-01-21 19:30 | disposition home or self-care (01) ==
PROVIDERS: Emergency Provider Emergency Medicine; PCP Physician Assistant; Visit Provider Emergency Medicine
DX: K57.32 Diverticulitis of large intestine without perforation or abscess without bleeding (principal); R10.9 Unspecified abdominal pain; R11.0 Nausea; F17.290 Nicotine dependence, other tobacco product, uncomplicated
CPT/HCPCS: 74177; 80048; 80076; 81001; 83690; 85025; 87077; 87086; 87088; 87186; 96361; 96374; 96375; 99283; J7030; Q9967; A4216; J2405

== ENCOUNTER 2022-02-24 10:32 | Emergency (ER) | payer MEDICAID, SELFPAY ==
[2022-02-24 10:34] VITALS: BP 123/67; PULSE 103; RESP 22; TEMP 36.6; O2SAT 99; BMI 25.0
--- NOTE | 2022-02-24 11:43 | EX.ED.VIS.UR ---
HPI HPI - URI History of Present Illness Chief Complaint: Cold Sx Narrative Narrative: 61-year-old female who denies significant past medical history presents with multiple somatic complaints and upper respiratory infection type symptoms that she is had for the last 10 days. She states she has all the symptoms of COVID or the flu. She has been having fever and fatigue. She denies any nausea or vomiting. She has chills on occasion and body aches. She has not been tested. She states she feels miserable. She denies any cough currently or shortness of breath. She presents wanting to know if she has COVID or influenza. ROS ROS ED ROS Narrative Constitutional: Positive fever, positive chills. Positive fatigue. HEENT: No sore throat. No neck pain. No loss of vision. No rhinorrhea. Cardiovascular: No chest pain. No palpitations. No pedal edema. Respiratory: Occasional cough, no shortness of breath. Abdominal: No abdominal pain. No nausea. No vomiting. Genitourinary: No dysuria. No hematuria. Musculoskeletal: Multiple myalgias. Multiple arthralgias. Neurologic: No headaches. No dizziness. No lightheadedness. Skin: No rash. No change in color. Psychiatric: No depression. No anxiety. [facility] Medical History Anxiety Depression Diverticulosis GERD (gastroesophageal reflux disease) Kidney stones Home Medications citalopram 20 mg tablet 40 mg PO DAILY depression 06/05/13 [History Last Taken 04/30/18 10:00] Omeprazole [Prilosec] 40 mg PO BID gerd 09/26/14 [History Last Taken 04/30/18 10:00] clonazepam 0.5 mg tablet (Klonopin) 0.25 mg PO PRN PRN Anxiety 09/06/17 [History Last Taken 04/30/18 22:00] amoxicillin 875 mg-potassium clavulanate 125 mg tablet 875 mg PO Q12H #20 TABLETS 01/21/22 [Rx Last Taken Unknown] Allergy/AdvReac Type Severity Reaction Status Date / Time Egg Derived AdvReac Nausea/Vom/ Verified 02/24/22 10:37 Diarrhea prednisone AdvReac Other Verified 02/24/22 10:37 Surgical History History of cholecystectomy Social History Smoking Status: Current every day smoker tobacco type: cigarettes and e-cigarettes EXAM Physical Exam Narrative Exam Narrative: Afebrile. Vital signs noted. HEENT: Normocephalic. Atraumatic. PERRL, EOMI. Neck soft and supple. No point tenderness or step off. Cardiovascular: Regular rate and rhythm with intermittent tachycardia. No murmurs, rubs, or gallops appreciated. Respiratory: No tachypnea. Lungs clear to auscultation bilaterally. Gastrointestinal: Abdomen soft, nontender, with normoactive bowel sounds. No rebound or guarding. Neurological: Awake. Alert. Nonfocal, nonlateralizing. Skin: No rash. Normal color. No pallor. Musculoskeletal: No pedal edema. Full range of motion extremities. Const Vital Signs: 02/24/22 10:34 02/24/22 11:47 02/24/22 11:48 Temperature 98 F 98 F Temperature Source Temporal Temporal Pulse Rate 103 H 103 H Respiratory Rate 22 H 22 H Respiratory Effort Normal Blood Pressure 123/67 H 123/67 H Blood Pressure Mean 85 85 Pulse Ox 99 99 Oxygen Delivery Method Room Air Room Air MDM MDM MDM Narrative Medical decision making narrative: Patient was swabbed for COVID, influenza, and RSV. She is positive for COVID. I explained to her that her symptoms have been ongoing for 10 days, and that she should continue symptomatic treatment. She is able to tolerate p.o. fluids and has been taking ibuprofen. I urged her to continue this and follow-up with her primary care provider. IFISH can be discharged safely home. Return instructions were reviewed. Disposition is discharged home in stable condition. Discharge Plan Triage Chief Complaint: Cold Sx ED Provider: Saleem Jiang Dx/Rx/DC Orders Clinical Impression: COVID, Multiple complaints Instructions: Coronavirus Disease 2019 (COVID-19): Caring for Yourself or Others, COVID-19 and the Flu: What's the Difference? Prescriptions: No Action citalopram 20 MG tablet 40 mg PO DAILY Label Comments: depression Omeprazole [Prilosec] 40 MG capsule 40 mg PO BID Label Comments: HEART BURN clonazepam [Klonopin] 0.5 MG tablet 0.25 mg PO PRN PRN (Reason: Anxiety) amoxicillin-pot clavulanate [amoxicillin-pot clavulanate] 875-125 mg tablet 875 mg PO Q12H Qty: 20 0RF Primary Care Provider: Carol Gonzalez Referrals: Carol Gonzalez, PA [Primary Care Provider] - 1 Week if not improving Disposition Disposition: Home, Self Care
[2022-02-24 11:48] VITALS: BP 123/67; PULSE 103; RESP 22; TEMP 36.6; O2SAT 99
== END 2022-02-24 12:30 | disposition home or self-care (01) ==
PROVIDERS: Emergency Provider Emergency Medicine; PCP Physician Assistant; Visit Provider Emergency Medicine
DX: U07.1 COVID-19 (principal); F17.210 Nicotine dependence, cigarettes, uncomplicated; F17.290 Nicotine dependence, other tobacco product, uncomplicated
CPT/HCPCS: 87428; 87807; 99282

== ENCOUNTER 2022-06-22 16:34 | Emergency (ER) | payer MEDICAID, SELFPAY ==
[2022-06-22] VITALS (7 sets, daily range): BP systolic 99–151; BP diastolic 74–87; PULSE 71–97; RESP 15–18; TEMP 36.6–37.2; O2SAT 93–99; BMI 26.4
[2022-06-22 17:15] LABS: Mucous, Urine 0 SEEN /hpf (<or=2+); Red Blood Cells-Urine 0 SEEN /hpf (0-5); Squamous Epithelial Cells - UA 0 SEEN /hpf (5-10)
[2022-06-22 17:19] LABS: Glucose, Dipstick Normal (Normal); Ketone-Dipstick 5 mg/dl (Negative); Leukocyte Esterase-Dipstick 500 /ul (Negative); Nitrite-Dipstick Positive (Negative); Occult Blood-Urine 10 /ul (Negative); Protein-Dipstick 30 mg/dl (Negative); Specific Gravity, Urine 1.015 (1.002-1.030); Urine Bilirubin Dipstick Negative (Negative); Urine Urobilinogen Normal (Normal); Urine pH 6.5 (5.0 - 8.0)
[2022-06-22 17:47] LABS: Color, Urine Yellow (Yellow)
[2022-06-22 17:48] LABS: Urine Clarity Clear (Clear)
[2022-06-22 17:50] LABS: Bacteria 3+ /hpf (None Seen); White Blood Cells 5-10 SEEN /hpf (0-5)
--- NOTE | 2022-06-22 17:54 | CT_ITS ---
STUDY: CT Abdomen And Pelvis W/O Contrast Injection 06/22/2022 6:52 PM REASON FOR EXAM: Female, 61 years old. Abdominal pain Kidney Stone Individualized dose optimization techniques were used for this CT. COMPARISON: 01.21.22. TECHNIQUE: CT Abdomen And Pelvis W/O Contrast Injection FINDINGS: There are atherosclerotic calcifications of visualized coronary arteries. The visualized portions of the heart are within normal limits. There is decreased attenuation of the liver consistent with steatosis. There are surgical clips in the gallbladder fossa consistent with a prior cholecystectomy. Normal spleen. Normal pancreas. Normal bilateral adrenal glands. No acute findings of the right kidney. There is moderate cortical atrophy of the left kidney, consistent with chronic medical renal disease. There are hypodensities in the left kidney. These are consistent for cysts. No follow up required. There is a small hiatal hernia. Normal small intestine. There are multiple colonic diverticula consistent with diverticulosis. There is non-visualization of the appendix. There are calcifications of the abdominal aorta. This is consistent for atherosclerotic disease. There is NO abdominal aortic aneurysm. Vascular workup can be obtained based on clinical correlation. Normal inferior vena cava. Subcentimeter mesenteric lymph nodes. Normal urinary bladder. There is an umbilical hernia containing fat. Normal osseous structures. CT/Abdomen/Pelvis without Cont IMPRESSION: (NOT LISTED IN ORDER OF SIGNIFICANCE) Fatty liver. There are no acute findings. Other findings as above. Electronically Signed: Breezy Pulliam MD at 18:55 EDT ,
[2022-06-22] MEDS: 0.9% Normal Saline 1,000 ML 250 ML IV (18:17)
[2022-06-22] MEDS: Morphine 4 MG/ML Syringe IV (18:18)
[2022-06-22] MEDS: Ondansetron 4 MG/2 ML Vial IV (18:18)
--- NOTE | 2022-06-22 18:35 | EDS_ITS ---
HPI History of Present Illness Chief Complaint: Flank Pain Detail of Chief Complaint: Left flank pain radiating anteriorly with dysuria and frequency Informant: patient Onset/Context/Timing Onset: Days (Approximately 3 days) Context: Sudden Onset Timing: Continuous and Waxes and wanes Quality: Colicky Location: Left flank that radiates anteriorly Current Severity: Mild Maximum Severity: Severe Worsened by: Nothing Relieved by: Nothing Associated Symptoms Associated Symptoms: Nausea and previously Narrative Narrative: Patient is a 61-year-old woman with history of renal and ureteral lithiasis, diverticulitis, frequent urinary tract infections who presents with left flank pain that radiates anterior to the left lower quadrant that started approximate 3 days ago. It is colicky in nature. It waxes and wanes in its intensity. There is no position of comfort. Nothing exacerbates the pain. She does report frequency, dysuria and mild urgency. She denies fever or chills. She does endorse nausea without vomiting or diarrhea. She denies trauma. She denies respiratory symptoms. Prior similar symptoms: Yes Recent Illness/Hospitalization: No PFSH PFSH Medical History Anxiety Depression Diverticulosis GERD (gastroesophageal reflux disease) Kidney stones Home Medications citalopram 20 mg tablet 40 mg PO DAILY depression 06/05/13 [History Last Taken 04/30/18 10:00] Omeprazole [Prilosec] 40 mg PO BID gerd 09/26/14 [History Last Taken 04/30/18 10:00] clonazepam 0.5 mg tablet (Klonopin) 0.25 mg PO PRN PRN Anxiety 09/06/17 [History Last Taken 04/30/18 22:00] sulfamethoxazole 800 mg-trimethoprim 160 mg tablet 0.5 tab PO BID #20 TABLETS 06/22/22 [Rx Last Taken Unknown] Allergy/AdvReac Type Severity Reaction Status Date / Time Egg Derived AdvReac Nausea/Vom/ Verified 06/22/22 16:36 Diarrhea prednisone AdvReac Other Verified 06/22/22 16:36 Surgical History History of cholecystectomy Social History (Updated 06/22/22 @ 18:[address] Chaka Yost MD) household members: none Smoking Status: Current every day smoker tobacco type: e-cigarettes substance use type: does not use ROS ROS ED Constitutional Constitutional ED: Reports chills; Denies fever(s), subjective, sweats or weight loss Eyes Eyes: Denies change in vision or diplopia ENT ENT ED: Denies ear pain, rhinorrhea or sore throat Cardiovascular Cardiovascular: Denies chest pain, orthopnea, palpitations, paroxysmal nocturnal dyspnea or racing heartbeat Respiratory/Chest Respiratory/Chest: Denies cough, dyspnea, dyspnea on exertion, orthopnea or paroxysmal nocturnal dyspnea Gastrointestinal Gastrointestinal: Denies abdominal pain, constipation, diarrhea, melena, nausea or vomiting Genitourinary Genitourinary ED: Reports dysuria and urinary frequency; Denies hematuria Musculoskeletal Musculoskeletal: Reports back pain; Denies arthralgias, myalgias or neck pain Integumentary Denies abscess or Abrasions Neurologic Neurologic: Denies headache(s), paresthesias or weakness Psychiatric Psychiatric: Denies anxiety Endocrine Endocrinology: Denies polydipsia or polyuria Hematologic/Lymphatic Hematologic/Lymphatic: Reports systems reviewed and no addt'l complaints, except as documented EXAM Physical Exam Const Vital Signs: 06/22/22 16:35 06/22/22 16:36 06/22/22 17:36 Temperature 98 F 98.3 F 98.2 F Temperature Source Temporal Temporal Temporal Pulse Rate 97 85 86 Respiratory Rate 16 16 18 Blood Pressure 151/86 H 133/81 H 135/80 H Blood Pressure Mean 107 98 98 Pulse Ox 99 94 93 Oxygen Delivery Method Room Air Room Air Room Air 06/22/22 18:00 06/22/22 18:34 06/22/22 19:00 Temperature 98.1 F 98.2 F Temperature Source Temporal Temporal Pulse Rate 86 84 80 Respiratory Rate 16 16 16 Blood Pressure 134/79 H 126/79 H 99/87 H Blood Pressure Mean 97 94 91 Pulse Ox 94 97 93 Oxygen Delivery Method Room Air Room Air Room Air Positive well nourished and well developed Constitutional Narrative: Patient appears uncomfortable. General Appearance ED: well developed and pallor; Negative for cyanotic or diaphoretic HEENT Reports dry mucous membranes HEENT Narrative: Head is a 2 medic normocephalic. Ears are normal. Nares are patent. Posterior normal. Mouth ED: Yes dry mucous membranes Mouth: dry mucous membranes Eyes PERRL and EOMs intact bilaterally General Eye ED: Negative for pale conjunctiva or scleral icterus Neck no lymphadenopathy, supple and no JVD Resp normal respiratory effort and clear to auscultation bilaterally Cardio regular rate, regular rhythm, S1 normal heart sound, S2 normal heart sound and no murmurs GI normal to inspection, nondistended, normoactive bowel sounds, non-distended and no masses; Negative for hepatosplenomegaly Palpation: tender suprapubic; Negative for splenomegaly, mass or rebound tenderness present Back/Spine General Back: CVA tenderness left Extremity normal to inspection General Extremety ED: Negative for edema or tenderness General Extremity: Negative for edema Neuro oriented x3, CN's II-XII intact bilaterally and no sensory deficits noted Sensorium / Orientation: alert Psych mental status grossly normal Skin no rashes or lesions noted, no wounds and skin turgor normal General Skin Exam: pallor; Negative for elasticity normal or jaundice MDM MDM MDM Narrative Medical decision making narrative: Frontal diagnosis includes pyelonephritis, renal stone with urinary tract infection, obstructing ureteral stone with infection. Will obtain CBC to assess white count differential. Patient metabolic panel to assess renal function and electrolytes. UA is positive for infection. Urine culture was sent. Patient received a dose of Rocephin. Because she has history of renal and ureteral stones will obtain CT to evaluate for obstructing stone which would mandate admission. History & Record Review Additional record(s) reviewed:: Prior outpatient record, Prior ED visit (December 2021 patient was diagnosed with diverticulitis on the left. November 22, 2021 patient was diagnosed with ureteral lithiasis.) and Prior labs Lab Data Attestation: I reviewed the patient's lab results. Lab results narrative: Urine is consistent with infection. Positive blood, nitrites and leukoesterase with pyuria and 3+ bacteria with no epithelial cells. Urine culture was sent. Patient was treated with Rocephin. Labs: Laboratory Results - last 24 hr 06/22/22 06/22/22 06/22/22 17:05 18:25 18:25 WBC 4.7 RBC 4.72 Hgb 13.2 Hct 41.6 MCV 88.1 MCH 28.0 MCHC 31.7 L RDW Std Deviation 42.3 RDW Coeff of Rinku 13.2 Plt Count 190 MPV 10.3 Immature Gran % (Auto) 0.200 Neut % (Auto) 66.6 Lymph % (Auto) 25.5 [place] % (Auto) 6.5 Eos % (Auto) 0.6 Baso % (Auto) 0.6 Absolute Neuts (auto) 3.2 Absolute Lymphs (auto) 1.21 Nucleated RBC % 0 Sodium 139 Potassium 4.3 Chloride 110 H Carbon Dioxide 24.0 Anion Gap 5 BUN 15 Creatinine 1.27 H Estim Creat Clear Calc 43.00 Est GFR (MDRD) Af Amer 55 L Est GFR (MDRD) Non-Af 45 L BUN/Creatinine Ratio 11.8 Glucose 86 Calcium 8.4 L Urine Color Yellow Urine Clarity Clear Urine pH 6.5 Ur Specific [place] 1.015 Urine Protein 30 H Urine Glucose (UA) Normal Urine Ketones 5 H Urine Occult Blood 10 H Urine Nitrite Positive H Urine Bilirubin Negative Urine Urobilinogen Normal Ur Leukocyte Esterase 500 H Urine RBC 0 SEEN Urine WBC 5-10 SEEN Ur Squamous Epith Cells 0 SEEN Urine Bacteria 3+ Urine Mucus 0 SEEN Radiography Diagnostic Testing: Clinical Impression(s) from Imaging Studies Abdomen/Pelvis CT 06/22/22 17:54 IMPRESSION: (NOT LISTED IN ORDER OF SIGNIFICANCE) Fatty liver. There are no acute findings. Other findings as above. Electronically Signed: Breezy Pulliam MD at 18:55 EDT , CT of the abdomen and pelvis reveals a small hiatal hernia. There is a small umbilical hernia. There is no urologic pathology noted. Treatment and Re-Evaluation :: A normal white count and renal function will discharge to home on 10-day course of Bactrim to treat pyelonephritis. Since patient has a GFR 45 the dose for Bactrim was decreased to single strength every 12 hours. Discharge Plan Triage Chief Complaint: Flank Pain ED Provider: Chaka Yost Dx/Rx/DC Orders Clinical Impression: Pyelonephritis of left kidney, Chronic renal insufficiency Instructions: ED Chronic Kidney Disease (CKD), ED Pyelonephritis, Female (Adult) Prescriptions: New sulfamethoxazole-trimethoprim [sulfamethoxazole-trimethoprim] 800-160 mg tablet 0.5 tab PO BID Qty: 20 0RF No Action citalopram 20 MG tablet 40 mg PO DAILY Label Comments: depression Omeprazole [Prilosec] 40 MG capsule 40 mg PO BID Label Comments: HEART BURN clonazepam [Klonopin] 0.5 MG tablet 0.25 mg PO PRN PRN (Reason: Anxiety) Primary Care Provider: Carol Gonzalez Referrals: Carol Gonzalez, NOLAN [Primary Care Provider] - 3-5 Days Disposition Disposition: Home, Self Care
[2022-06-22 18:45] LABS: Absolute Lymphocyte Count 1.21 X10^3/uL (0.83-4.51); Absolute Neutrophil Count 3.2 X10^3/uL (2.0-7.7); Basophil# 0.03 X10^3/uL; Basophil% 0.6 % (0-1); Eosinophil# 0.03 X10^3/uL; Eosinophils% 0.6 % (0-5); Hematocrit 41.6 % (37-47); Hemoglobin 13.2 g/dL (12.0-15.0); Lymphocyte # 1.21 X10^3/ul (0.83-4.51); Lymphocyte % 25.5 % (19-41); Mean Corp Hgb Conc 31.7 g/dL (32-36); Mean Corpuscular Volume 88.1 fL (81-99); Mean Platelet Vol. 10.3 fl (6.2-12.0); Monocyte# 0.31 X10^3/uL; Monocyte% 6.5 % (0-10); NRBC Flagged by Analyzer 0 % (0-5); Neutrophil # 3.15 X10^3/uL (2.7-7.7); Neutrophil % 66.6 % (47-70); Platelet Count 190 K/mm3 (150-450); RBC Distribution Width CV 13.2 % (11.6-14.6); RBC Distribution Width SD 42.3 fl (35.1-43.9); Red Blood Count 4.72 M/mm3 (4.2-5.4); White Blood Count 4.7 K/mm3 (4.4-11.0)
[2022-06-22 18:59] LABS: Anion Gap 5 (5-15); BUN 15 mg/dL (7-18); BUN/Creat Ratio 11.8 RATIO (10-20); Calcium,Total 8.4 mg/dL (8.5-10.1); Chloride 110 mmol/L (98-107); Creatinine, Serum 1.27 mg/dL (0.55-1.02); EST Glomerular Filtration Rate 45 mL/min (>60); Est Glom Filt Rate - Afr Amer 55 mL/min (>60); Glucose 86 mg/dL (74-106); Potassium 4.3 mmol/L (3.5-5.1); Sodium Level 139 mmol/L (136-145)
[2022-06-22] MEDS: Ceftriaxone 1 GM/50 ML BAG IV (18:59)
== END 2022-06-22 20:17 | disposition home or self-care (01) ==
PROVIDERS: Emergency Provider Emergency Medicine; PCP Physician Assistant; Visit Provider Emergency Medicine
DX: N12 Tubulo-interstitial nephritis, not specified as acute or chronic (principal); F17.290 Nicotine dependence, other tobacco product, uncomplicated; N18.9 Chronic kidney disease, unspecified; R30.0 Dysuria; Z87.440 Personal history of urinary (tract) infections; R35.0 Frequency of micturition
CPT/HCPCS: 74176; 80048; 81001; 85025; 87077; 87086; 87088; 87186; 96361; 96365; 96375; 99282; J7030; A4216; J2405

== ENCOUNTER 2023-02-24 17:05 | Emergency (ER) | payer MEDICAID, SELFPAY ==
[2023-02-24 17:06] VITALS: BP 143/90; PULSE 96; RESP 15; TEMP 35.9; O2SAT 99; BMI 27.0
--- NOTE | 2023-02-24 17:32 | CT_ITS ---
STUDY: CT ABDOMEN AND PELVIS WITH CONTRAST REASON FOR EXAM: Female, 62 years old. Abdominal pain RADIATION DOSAGE (If Supplied By Facility): CTDIvol = ( 11.07 ) mGy, DLP = ( 821.65 ) mGycm TECHNIQUE: Transaxial images were obtained from the dome of the diaphragm to the symphysis pubis without oral contrast. IV 100mL [id number]-[id number] was administered. Sagittal and coronal images were reconstructed. Individualized dose optimization techniques were used for this CT. COMPARISON: None. FINDINGS: The visualized lung bases are unremarkable. The visualized portions of the heart are within normal limits. There is no dominant mass in the liver. There is mild intra and extrahepatic biliary dilatation. The common bile duct measures 1.0 cm. There are surgical clips in the gallbladder fossa consistent with a prior cholecystectomy. There is mild splenomegaly. Normal pancreas. Normal bilateral adrenal glands. There is 1.0 cm fat density mass consistent with angiomyolipoma at the lower pole of the right kidney. There is moderate atrophy of the left kidney. There is 1.1 cm cyst at the lower pole. There is large hiatal hernia. Normal small intestine. There is diverticulosis, with thickening of the sigmoid colon wall, and pericolonic inflammation changes consistent with acute diverticulitis. The appendix is visualized and appears normal. There is diffuse atherosclerotic calcification of the abdominal aorta, without a demonstrated aneurysm. Normal inferior vena cava. Normal retroperitoneum. Normal urinary bladder. Normal visualized uterus. There is no free fluid in the abdomen or pelvis. Normal abdominal wall. Normal osseous structures. CT/Abdomen/Pelvis W IV Cont ONLY IMPRESSION: Acute diverticulitis of the sigmoid colon. No obstruction or abscess. Large hiatal hernia. Prior cholecystectomy. Intra and extra hepatic biliary dilatation. Electronically Signed: Arjun Arreguin MD at 19:18 EST ,
--- NOTE | 2023-02-24 17:37 | EX.ED.DYSGE1 ---
HPI <LARRY Rodriguez - Last Filed: 02/24/23 21:13> History of Present Illness Chief Complaint: Abd Pain Narrative Narrative: Patient 62-year-old female with history of depression, GERD who presents to the emergency department for abdominal pain, diarrhea. Patient states that the diarrhea has been ongoing for the last 4 weeks, she has 4-5 bouts of diarrhea a day with significant abdominal cramping. Patient states the abdominal cramping became out of control and she is here for evaluation. She denies any blood in her stool, she does state to have intermittent nausea. Patient denies any recent antibiotic use, denies any travel out of the country. Patient denies any sick contacts. PFSH <LARRY Rodriguez - Last Filed: 02/24/23 21:13> [facility] Medical History Anxiety Depression Diverticulosis GERD (gastroesophageal reflux disease) Kidney stones Home Medications citalopram 20 mg tablet 40 mg PO DAILY depression 06/05/13 [History Last Taken 04/30/18 10:00] Omeprazole [Prilosec] 40 mg PO BID gerd 09/26/14 [History Last Taken 04/30/18 10:00] clonazepam 0.5 mg tablet (Klonopin) 0.25 mg PO PRN PRN Anxiety 09/06/17 [History Last Taken 04/30/18 22:00] sulfamethoxazole 800 mg-trimethoprim 160 mg tablet 0.5 tab (1/2 x 800-160 mg) PO BID #20 TABLETS 06/22/22 [Rx Last Taken Unknown] ciprofloxacin HCl 500 mg tablet (Cipro) 500 mg PO BID #20 tabs 02/24/23 [Rx Last Taken Unknown] metronidazole 500 mg tablet 500 mg PO TID #30 tabs 02/24/23 [Rx Last Taken Unknown] Allergy/AdvReac Type Severity Reaction Status Date / Time Egg Derived AdvReac Nausea/Vom/ Verified 06/22/22 16:36 Diarrhea prednisone AdvReac Other Verified 06/22/22 16:36 Surgical History History of cholecystectomy Social History (Updated 06/22/22 @ 18:[address] Chaka Yost MD) household members: none Smoking Status: Current every day smoker tobacco type: e-cigarettes substance use type: does not use ROS <LARRY Rodriguez - Last Filed: 02/24/23 21:13> ROS ED ROS Narrative Constitutional: Negative for fever, chills, weight loss, weakness Eyes: Negative for vision loss, vision change, double vision ENT: Negative for any sore throat, ear pain, congestion Cardiovascular: Negative for any chest pain, tightness, palpitations Respiratory: Negative for any cough, sputum production, hemoptysis, dyspnea, dyspnea on exertion, orthopnea Gastrointestinal: Negative for any vomiting, constipation, blood in stool, blood in vomit. Positive for abdominal pain, nausea, diarrhea : Negative for any urinary frequency, dysuria, retention, blood in urine Muscle skeletal: Negative for any myalgias, arthralgias, neck pain, back pain Neurological: Negative for any headache, syncope, numbness or tingling, dizziness Skin: Negative for any rashes, lumps, itching, abrasions, lacerations Psychiatric: Negative for any depression, anxiety, stress, suicidal ideation, homicidal ideation Hematologic: Negative for any easy bruising, excessive bruising, easy bleeding Allergies: Negative for any eczema, hives, rash EXAM <LARRY Rodriguez - Last Filed: 02/24/23 21:13> Physical Exam Narrative Exam Narrative: Vital signs reviewed. HEET: Head normocephalic atraumatic, TMs clear bilaterally. Posterior pharynx is clear, moist mucous membranes. Nares clear bilaterally. Neck: Supple with no lymphadenopathy or tenderness. No signs of meningismus. Cardiac: Regular rate and rhythm no murmurs gallops or rubs, equal peripheral pulses bilaterally. Respiratory: Lungs clear to auscultation bilaterally. No chest tenderness. Abdomen: Soft, nondistended. No abdominal bruit or pulsatile masses. No hepatosplenomegaly. Patient generalized tenderness, could not localize pain. Active bowel sounds in all quadrants. No peritoneal signs. Extremities: No peripheral edema, no signs of gross trauma or deformity. Active full range of motion of all extremities. Neuro: Cranial nerves II through XII intact, no focal neurological deficits. Skin: Clean dry and intact with no rash, purpura, petechiae, vesicles or pustules. Backs/flank: No CVA tenderness, no midline spinal tenderness, no deformity. Psych: Normal mood and affect. No SI, HI or acute psychosis. Const Vital Signs: 02/24/23 17:06 Temperature 96.7 F L Temperature Source Temporal Pulse Rate 96 Respiratory Rate 15 Blood Pressure 143/90 H Blood Pressure Mean 107 Pulse Ox 99 Oxygen Delivery Method Room Air <Saleem Jiang MD - Last Filed: 02/24/23 22:13> Physical Exam Const Vital Signs: 02/24/23 17:06 Temperature 96.7 F L Temperature Source Temporal Pulse Rate 96 Respiratory Rate 15 Blood Pressure 143/90 H Blood Pressure Mean 107 Pulse Ox 99 Oxygen Delivery Method Room Air MDM <LARRY Rodriguez - Last Filed: 02/24/23 21:13> MDM Lab Data Labs: Laboratory Results - last 24 hr 02/24/23 17:55 WBC 6.0 RBC 4.75 Hgb 13.2 Hct 42.5 MCV 89.5 MCH 27.8 MCHC 31.1 L RDW Std Deviation 42.5 RDW Coeff of Rinku 12.8 Plt Count 169 MPV 10.9 Immature Gran % (Auto) 0.300 Neut % (Auto) 70.1 H Lymph % (Auto) 20.4 [place] % (Auto) 7.3 Eos % (Auto) 1.2 Baso % (Auto) 0.7 Absolute Neuts (auto) 4.2 Absolute Lymphs (auto) 1.23 Nucleated RBC % 0 Platelet Estimate ADEQUATE RBC Morphology N CHROM Anisocytosis RARE Macrocytosis RARE Sodium 141 Potassium 5.1 Chloride 114 H Carbon Dioxide 25.0 Anion Gap 2 L BUN 9 Creatinine 1.13 H Estim Creat Clear Calc 47.70 Est GFR (MDRD) Af Amer 63 Est GFR (MDRD) Non-Af 52 L BUN/Creatinine Ratio 8.0 L Glucose 90 Calcium 8.3 L Total Bilirubin 0.60 AST 85 H ALT 67 H Alkaline Phosphatase 59 Total Protein 7.5 Albumin 3.4 Globulin 4.1 Albumin/Globulin Ratio 0.8 L Lipase 24 Urine Color Yellow Urine Clarity Sl. Cloudy Urine pH 6.0 Ur Specific [place] 1.015 Urine Protein 15 H Urine Glucose (UA) Normal Urine Ketones Negative Urine Occult Blood Negative Urine Nitrite Positive H Urine Bilirubin Negative Urine Urobilinogen 1 H Ur Leukocyte Esterase 500 H Urine RBC 0-5 SEEN Urine WBC 10-25 SEEN Ur Squamous Epith Cells 5-10 SEEN Ur Transition Epith Cell 0-5 SEEN Urine Bacteria 3+ Urine Mucus 0 SEEN Radiography Diagnostic Testing: Clinical Impression(s) from Imaging Studies Abdomen/Pelvis CT 02/24/23 17:32 IMPRESSION: Acute diverticulitis of the sigmoid colon. No obstruction or abscess. Large hiatal hernia. Prior cholecystectomy. Intra and extra hepatic biliary dilatation. Electronically Signed: Arjun Arreguin MD at 19:18 EST , Treatment and Re-Evaluation :: Patient appears generally well, patient appears to be in no distress, vital signs are stable. Presenting to the emergency department with complaints of lower abdominal pain, diarrhea. Differential diagnosis includes C. difficile, infectious process, bowel obstruction, diverticulitis. She will receive a full abdominal work-up including labs, liver panel, lipase, electrolytes. I did order stool studies if she can provide a stool sample here. Patient be given IV fluid, IV Zofran, IM Bentyl. CT scan of the abdomen pelvis to be ordered. All radiologic examinations were read, reviewed by the emergency department attending. From these reads, a plan of care will be put in place. Patient CBC was unremarkable, patient's chemistries show a chronic creatinine of 1.3, this is baseline. Patient's AST was 85 with a ALT of 65, lipase was negative. Urinalysis was positive for infection with 3+ bacteria 10-25 white blood cells, 500 leukocytes positive nitrites. This to be sent for culture, IV Rocephin given. Currently waiting on the CT scan of the abdomen pelvis. Patient CT scan shows acute diverticulitis of sigmoid colon. No obstruction no abscess. Patient was given IV Rocephin here, she was given a Flagyl before she goes. She be placed on Cipro, Flagyl for 10 days, this will cover both diverticulitis as well as the UTI. She instructed return for any worsening symptoms. She will follow-up with GI. All questions were answered, patient stable for discharge. <Saleem Jiang MD - Last Filed: 02/24/23 22:13> [facility] MDM Narrative Medical decision making narrative: Dr. Jiang: I have personally performed a face to face assessment of the patient and have reviewed the OLIVA Note. I performed a substantive portion of the visit including all aspects of the following. My cordova findings include: History is diarrhea x4 weeks. History of irritable bowel syndrome. Exam is afebrile. Vital signs noted. Regular rate and rhythm. Abdomen soft with minimal suprapubic tenderness. No rebound or guarding. Medical Decision Making: Check labs. Check CT. Check UA. Positive nitrites on UA after review with 5-10 epithelial cells and 3+ bacteria. IV Rocephin. I reviewed the CT report which shows sigmoid diverticulitis. She will be put on Cipro and Flagyl to cover her UTI and diverticulitis. It was not felt that she requires observation or admission as she is tolerating p.o., has not had vomiting, does not have a white count or leukocytosis, or fever. I do feel that she merits outpatient trial. She will take the antibiotics and follow-up with her primary care provider. Return instructions reviewed. Discharged home in stable condition. Other additions or changes: [None] History & Record Review Discussion w/independent historian: Patient Additional record(s) reviewed:: Prior ED visit and Prior labs Lab Data Attestation: I reviewed the patient's lab results. Labs: Laboratory Results - last 24 hr 02/24/23 17:55 WBC 6.0 RBC 4.75 Hgb 13.2 Hct 42.5 MCV 89.5 MCH 27.8 MCHC 31.1 L RDW Std Deviation 42.5 RDW Coeff of Rinku 12.8 Plt Count 169 MPV 10.9 Immature Gran % (Auto) 0.300 Neut % (Auto) 70.1 H Lymph % (Auto) 20.4 [place] % (Auto) 7.3 Eos % (Auto) 1.2 Baso % (Auto) 0.7 Absolute Neuts (auto) 4.2 Absolute Lymphs (auto) 1.23 Nucleated RBC % 0 Platelet Estimate ADEQUATE RBC Morphology N CHROM Anisocytosis RARE Macrocytosis RARE Sodium 141 Potassium 5.1 Chloride 114 H Carbon Dioxide 25.0 Anion Gap 2 L BUN 9 Creatinine 1.13 H Estim Creat Clear Calc 47.70 Est GFR (MDRD) Af Amer 63 Est GFR (MDRD) Non-Af 52 L BUN/Creatinine Ratio 8.0 L Glucose 90 Calcium 8.3 L Total Bilirubin 0.60 AST 85 H ALT 67 H Alkaline Phosphatase 59 Total Protein 7.5 Albumin 3.4 Globulin 4.1 Albumin/Globulin Ratio 0.8 L Lipase 24 Urine Color Yellow Urine Clarity Sl. Cloudy Urine pH 6.0 Ur Specific [place] 1.015 Urine Protein 15 H Urine Glucose (UA) Normal Urine Ketones Negative Urine Occult Blood Negative Urine Nitrite Positive H Urine Bilirubin Negative Urine Urobilinogen 1 H Ur Leukocyte Esterase 500 H Urine RBC 0-5 SEEN Urine WBC 10-25 SEEN Ur Squamous Epith Cells 5-10 SEEN Ur Transition Epith Cell 0-5 SEEN Urine Bacteria 3+ Urine Mucus 0 SEEN Radiography Diagnostic Testing: Clinical Impression(s) from Imaging Studies Abdomen/Pelvis CT 02/24/23 17:32 IMPRESSION: Acute diverticulitis of the sigmoid colon. No obstruction or abscess. Large hiatal hernia. Prior cholecystectomy. Intra and extra hepatic biliary dilatation. Electronically Signed: Arjun Arreguin MD at 19:18 EST Reading Location ID and State: [address] [place] [address] , Service support , Discharge Plan Triage Chief Complaint: Abd Pain Other Complaint: Diarrhea ED Midlevel Provider: Arsalan Eldridge ED Provider: Saleem Jiang Dx/Rx/DC Orders Clinical Impression: Urinary tract infection, Acute diverticulitis Instructions: ED Diverticulitis, ED Cystitis Female Adult Prescriptions: New metronidazole 500 mg tablet 500 mg PO TID Qty: 30 0RF ciprofloxacin HCl [Cipro] 500 mg tablet 500 mg PO BID Qty: 20 0RF No Action citalopram 20 MG tablet 40 mg PO DAILY Patient Comments: depression Omeprazole [Prilosec] 40 MG capsule 40 mg PO BID Patient Comments: HEART BURN clonazepam [Klonopin] 0.5 MG tablet 0.25 mg PO PRN PRN (Reason: Anxiety) sulfamethoxazole-trimethoprim [sulfamethoxazole-trimethoprim] 800-160 mg tablet 0.5 tab PO BID Qty: 20 0RF Primary Care Provider: Carol Gonzalez Referrals: Rip Iraheta DO [Med Staff - Active Staff] - Carol Gonzalez PA [Primary Care Provider] - Activity Restrictions/Additional Instructions: Please take antibiotics until finished. Disposition Disposition: Home, Self Care Discharge Date/Time: 02/24/23 19:47
[2023-02-24] MEDS: Dicyclomine 20 MG/2 ML Vial IM (17:51)
[2023-02-24] MEDS: 0.9% Normal Saline (1000mL) 1,000 ML 1000 ML IV (17:55)
[2023-02-24 18:05] LABS: Mucous, Urine 0 SEEN /hpf (<or=2+)
[2023-02-24 18:08] LABS: Color, Urine Yellow (Yellow); Glucose, Dipstick Normal (Normal); Ketone-Dipstick Negative (Negative); Leukocyte Esterase-Dipstick 500 /ul (Negative); Nitrite-Dipstick Positive (Negative); Occult Blood-Urine Negative /ul (Negative); Protein-Dipstick 15 mg/dl (Negative); Specific Gravity, Urine 1.015 (1.002-1.030); Urine Bilirubin Dipstick Negative (Negative); Urine Clarity Sl. Cloudy (Clear); Urine Urobilinogen 1 mg/dl (Normal)
[2023-02-24 18:09] LABS: Absolute Lymphocyte Count 1.23 X10^3/uL (0.83-4.51); Absolute Neutrophil Count 4.2 X10^3/uL (2.0-7.7); Basophil# 0.04 X10^3/uL; Basophil% 0.7 % (0-1); Eosinophil# 0.07 X10^3/uL; Eosinophils% 1.2 % (0-5); Hematocrit 42.5 % (37-47); Hemoglobin 13.2 g/dL (12.0-15.0); Lymphocyte # 1.23 X10^3/ul (0.83-4.51); Lymphocyte % 20.4 % (19-41); Mean Corp Hgb Conc 31.1 g/dL (32-36); Mean Corpuscular Hgb 27.8 pg (27.0-32.0); Mean Corpuscular Volume 89.5 fL (81-99); Mean Platelet Vol. 10.9 fl (6.2-12.0); Monocyte# 0.44 X10^3/uL; Monocyte% 7.3 % (0-10); NRBC Flagged by Analyzer 0 % (0-5); Neutrophil # 4.24 X10^3/uL (2.7-7.7); Neutrophil % 70.1 % (47-70); POSITIVE COUNT YES; Platelet Count 169 K/mm3 (150-450); RBC Distribution Width CV 12.8 % (11.6-14.6); RBC Distribution Width SD 42.5 fl (35.1-43.9); Red Blood Count 4.75 M/mm3 (4.2-5.4)
[2023-02-24 18:10] LABS: Differential Indicated SCAN CRITERIA MET
[2023-02-24 18:18] LABS: Bacteria 3+ /hpf (None Seen); Red Blood Cells-Urine 0-5 SEEN /hpf (0-5); Squamous Epithelial Cells - UA 5-10 SEEN /hpf (5-10); Transitional Epithelial - Ur 0-5 SEEN /hpf (0-5); White Blood Cells 10-25 SEEN /hpf (0-5)
[2023-02-24 18:29] LABS: ALB/GLOB Ratio 0.8 RATIO (0.9-2.4); AST(SGOT) 85 U/L (15-37); Alanine Aminotransfer ALT/SGPT 67 U/L (13-56); Albumin, Serum 3.4 g/dL (3.2-5.0); Alkaline Phosphatase 59 U/L (45-117); Anion Gap 2 (5-15); BUN 9 mg/dL (7-18); Calcium,Total 8.3 mg/dL (8.5-10.1); Chloride 114 mmol/L (98-107); Creatinine, Serum 1.13 mg/dL (0.55-1.02); EST Glomerular Filtration Rate 52 mL/min (>60); Est Glom Filt Rate - Afr Amer 63 mL/min (>60); Globulin 4.1 g/dL (2.2-4.2); Glucose 90 mg/dL (74-106); Lipase 24 U/L (13-75); Potassium 5.1 mmol/L (3.5-5.1); Protein, Total 7.5 g/dL (6.4-8.2); Sodium Level 141 mmol/L (136-145)
[2023-02-24 18:33] LABS: Platelet Estimate ADEQUATE (ADEQ); Red Cell Morphology N CHROM NORMAL (NORM C&C)
[2023-02-24 18:34] LABS: Anisocytosis RARE; Macrocytosis RARE
[2023-02-24] MEDS: Ceftriaxone 1 GM/50 ML BAG IV (19:05)
[2023-02-24] MEDS: metroNIDAZOLE 500 MG Tablet PO (19:42)
== END 2023-02-24 19:47 | disposition home or self-care (01) ==
PROVIDERS: Nurse Practitioner; Emergency Provider Emergency Medicine; PCP Physician Assistant; Visit Provider Emergency Medicine
DX: N39.0 Urinary tract infection, site not specified (principal); F17.290 Nicotine dependence, other tobacco product, uncomplicated; K57.32 Diverticulitis of large intestine without perforation or abscess without bleeding
CPT/HCPCS: 74177; 80053; 81001; 83690; 85025; 87077; 87086; 87088; 87186; 96361; 96365; 96372; 99283; J7030; Q9967; A4216

== ENCOUNTER 2023-04-26 17:36 | Emergency (ER) | payer MEDICAID, SELFPAY ==
[2023-04-26 17:39] VITALS: BP 150/91; PULSE 81; RESP 16; TEMP 36.9; O2SAT 98; BMI 25.3
--- NOTE | 2023-04-26 20:22 | ED.RN ---
Pt gets up from waiting room chair, states this is bullshit and walks out.
--- OUTSIDE RECORDS SUMMARY | 2023-04-26 20:28 | XMS RPT_ITS | CCD ---
Author Name Unknown Address [address] [place] [address] Organization [facility] Care Team Providers Care 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 Name Role Phone Carol Gonzalez PA-C Primary Care Provider [phone] Carol GONZALEZ Primary Care Unavailable Carol GONZALEZ Attending Unavailable Carol GONZALEZ Primary Care Unavailable Carol GONZALEZ Primary Care Unavailable Carol GONZALEZ Primary Care Unavailable Carol GONZALEZ Referring Unavailable Carol GONZALEZ Primary Care Unavailable Carol GONZALEZ Attending Unavailable Carol GONZALEZ Primary Care Unavailable Carol GONZALEZ Attending Unavailable GONZALEZCarol Primary Care Unavailable GONZALEZCarol Referring Unavailable Allergies Allergy Classification Reported Allergen(s) Allergy Type Date of Onset Reaction(s) Facility (20 sources) Amitriptyline; Translations: [AMITRIPTYLINE] Drug Allergy 07-25-2012 Other: See Comments [facility] Work Phone: (20 sources) Amoxicillin / Clavulanate; Translations: [AMOXICILLIN-POT CLAVULANATE] Drug Allergy 05-31-2009 GI Upset, Vomiting [facility] Work Phone: (20 sources) Codeine; Translations: [CODEINE] Drug Allergy 04-01-2005 GI Upset [facility] Work Phone: (20 sources) Doxycycline; Translations: [DOXYCYCLINE] Drug Allergy 04-11-2005 [facility] (20 sources) egg extract; Translations: [EGG] Drug Allergy 03-27-2013 Intolerance, GI Upset [facility] Work Phone: (20 sources) Etodolac; Translations: [ETODOLAC] Drug Allergy 04-11-2005 [facility] (20 sources) FLUoxetine; Translations: [FLUOXETINE HCL] Drug Allergy 04-11-2005 [facility] (20 sources) lansoprazole; Translations: [LANSOPRAZOLE] Drug Allergy 04-11-2005 [facility] (20 sources) oxyCODONE; Translations: [OXYCODONE] Drug Allergy 08-07-2010 Vomiting [facility] (20 sources) predniSONE; Translations: [PREDNISONE] Drug Allergy 06-09-2007 Mental Status Change [facility] Medications Current Medications Medication Drug Class(es) Dates Sig (Normalized) Sig (Original) gabapentin 300 mg oral capsule (3 sources) Anti-epileptic Agent Start: 02-11-2023 End: 05-12-2023 take 1 capsule by mouth three times daily gabapentin (NEURONTIN) 300 mg capsule Take 1 capsule by mouth three times a day for 90 days. 90 capsule 2 02/11/2023 05/12/2023 Active Completed/Discontinued Medications Medication Drug Class(es) Dates Sig (Normalized) Sig (Original) [id number] 200 actuat albuterol 0.09 mg/actuat metered dose inhaler (1 source) beta2-Adrenergic Agonist Start: 04-01-2021 take 2 puff(s) by inhalation every four hours as needed albuterol HFA (PROAIR HFA) 90 mcg/actuation inhaler Inhale 2 Puffs as instructed every 4 hours as needed. 18 g 0 04/01/2021 Active Problems Active Problems Problem Classification Problem Date Documented Da te Episodic/Chronic Adjustment disorders (20 sources) Adjustment disorder with depressed mood; Translations: [Adjustment disorder with depressed mood] Onset: 8 09-06-2017 Chronic Alcohol-related disorders (1 source) Alcohol abuse, uncomplicated; Translations: [Alcohol abuse] Onset: 3 Chronic Anxiety disorders (20 sources) Anxiety neurosis ; Translations: [Generalized anxiety disorder] Onset: 6 09-06-2017 Chronic Calculus of urinary tract (1 source) Kidney stone; Translations: [Calculus of kidney] Episodic Cardiac and circulatory congenital anomalies (2 sources) Abnormality of abdominal aorta; Translations: [Congenital malformation of aorta unspecified] Onset: 3 02-10-2023 Chronic Chronic kidney disease (20 sources) Chronic progressive renal failure; Translations: [Chronic progressive renal failure, stage 3 (moderate)] Onset: 8 03-25-2021 Chronic Deficiency and other anemia (1 source) Iron deficiency anemia due to blood loss; Translations: [Iron deficiency anemia secondary to blood loss (chronic)] Chronic Deficiency and other anemia (1 source) Iron deficiency anemia secondary to blood loss (chronic); Translations: [Iron deficiency anemia due to chronic blood loss] Onset: 1 Chronic Disorders of lipid metabolism (2 sources) Mixed hyperlipidemia; Translations: [Mixed hyperlipidemia] Onset: 3 Chronic Diverticulosis and diverticulitis (20 sources) Diverticulitis of large intestine; Translations: [Diverticulitis of large intestine without perforation or abscess without bleeding] Onset: 6 05-12-2018 Chronic Esophageal disorders (20 sources) Gastroesophageal reflux disease; Translations: [Gastro-esophageal reflux disease without esophagitis] Onset: 7 09-06-2017 Chronic Genitourinary symptoms and ill-defined conditions (5 sources) Scalding pain on urination ; Translations: [Dysuria] Episodic Heart valve disorders (3 sources) Nonrheumatic aortic (valve) stenosis; Translations: [Aortic valve disorders] Onset: 2 Chronic Intestinal infection (20 sources) Helicobacter test finding; Translations: [Other specified bacterial intestinal infections] Onset: 3 09-06-2017 Episodic Nausea and vomiting (1 source) Nausea; Translations: [Nausea] Episodic Nephritis; nephrosis; renal sclerosis (20 sources) Atrophy of left kidney; Translations: [Atrophy of kidney (terminal)] Onset: 8 01-19-2018 Chronic Nonspecific chest pain (1 source) Precordial pain; Translations: [Precordial pain] Episodic Other aftercare (1 source) Drug therapy finding; Translations: [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] Episodic Other circulatory disease (20 sources) Disorder of aorta; Translations: [Disorder of arteries and arterioles, unspecified] Onset: 2 05-10-2021 Chronic Other diseases of kidney and ureters (1 source) Hydroureter; Translations: [Hydroureter] Episodic Other diseases of kidney and ureters (1 source) Hydronephrosis; Translations: [Unspecified hydronephrosis] Episodic Other gastrointestinal disorders (1 source) Diarrhea; Translations: [Diarrhea, unspecified] Episodic Other gastrointestinal disorders (1 source) Diarrhea of presumed infectious origin; Translations: [Diarrhea, unspecified] 02-11-2023 Episodic Other hereditary and degenerative nervous system conditions (20 sources) Restless legs; Translations: [Restless legs syndrome] Onset: 8 09-06-2017 Chronic Other hereditary and degenerative nervous system conditions (1 source) Restless legs syndrome; Translations: [RLS (restless legs syndrome)] Onset: 8 Chronic Other injuries and conditions due to external causes (1 source) Injury of head; Translations: [Unspecified injury of head, initial encounter] Episodic Other upper respiratory infections (2 sources) Sore throat symptom; Translations: [Acute pharyngitis, unspecified] Episodic Respiratory failure; insufficiency; arrest (adult) (1 source) Respiratory failure; insufficiency; arrest (adult); Translations: [Chronic progressive renal failure, stage 3 (moderate) ([facility])] Onset: Urinary tract infections (1 source) Acute urinary tract infection; Translations: [Urinary tract infection, site not specified] Episodic Past or Other Problems Problem Classification Problem Date Documented Date Episodic/Chronic Cardiac dysrhythmias (18 sources) Palpitations; Translations: [Palpitations] Onset: 11-27-2021 Episodic Deficiency and other anemia (20 sources) Iron deficiency anemia; Translations: [Iron deficiency anemia, unspecified] Onset: 07-29-2012 10-03-2020 Episodic Nutritional deficiencies (2 sources) Cobalamin deficiency; Translations: [Deficiency of other specified B group vitamins] Onset: 07-30-2022 Episodic Other aftercare (1 source) 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; Translations: [Current use of proton pump inhibitor] Onset: 08-13-2022 Episodic Other connective tissue disease (20 sources) Myofascial pain; Translations: [Myalgia, other site] Onset: 10-16-2013 09-06-2017 Episodic Other connective tissue disease (1 source) Myalgia, other site; Translations: [Myofascial pain] Onset: 09-06-2017 Episodic Other diseases of kidney and ureters (20 sources) Retroperitoneal fibrosis; Translations: [Crossing vessel and stricture of ureter without hydronephrosis] Onset: 08-07-2010 09-06-2017 Episodic Other screening for suspected conditions (not mental disorders or infectious disease) (20 sources) CT of abdomen abnormal; Translations: [Abnormal findings on diagnostic imaging of other abdominal regions, including retroperitoneum] Onset: 10-10-2015 09-25-2020 Episodic Spondylosis; intervertebral disc disorders; other back problems (20 sources) Chronic neck pain; Translations: [Cervicalgia] Onset: 01-18-2013 09-06-2017 Episodic Results Test Name Value Interpretation Reference Range Facil ity Vital Signs Date Time Vital Sign Value Performing Clinician Bri valencia 02-11-2023 16:54-0500 Body temperature 98.91 [degF] NA Gonzalez PA-C Work Phone: [facility] 02-11-2023 16:54-0500 Body weight 73.03 kg NA Gonzalez PA-C Work Phone: [facility] 02-11-2023 16:54-0500 Diastolic blood pressure 80 mm[Hg] NA Gonzalez PA-C Work Phone: [facility] 02-11-2023 16:54-0500 Heart rate 98 /min NA Gonzalez PA-C Work Phone: [facility] 02-11-2023 16:54-0500 Respiratory rate 18 /min NA Gonzalez PA-C Work Phone: [facility] 02-11-2023 16:54-0500 SaO2% (BldA) [Mass fraction] 99 % NA Gonzalez PA-C Work Phone: [facility] 02-11-2023 16:54-0500 Systolic blood pressure 126 mm[Hg] NA Gonzalez PA-C Work Phone: [facility] 07-30-2022 16:49-0400 Body weight 72.12 kg NA Gonzalez PA-C Work Phone: [facility] 07-30-2022 16:49-0400 Diastolic blood pressure 76 mm[Hg] NA Gonzalez PA-C Work Phone: [facility] 07-30-2022 16:49-0400 Heart rate 82 /min NA Gonzalez PA-C Work Phone: [facility] 07-30-2022 16:49-0400 Respiratory rate 16 /min NA Gonzalez PA-C Work Phone: [facility] 07-30-2022 16:49-0400 SaO2% (BldA) [Mass fraction] 96 % NA Gonzalez PA-C Work Phone: [facility] 07-30-2022 16:49-0400 Systolic blood pressure 124 mm[Hg] NA Gonzalez PA-C Work Phone: [facility] 07-13-2022 16:28-0400 Body temperature 98.1 [degF] Krislyn Aberegg PA Work Phone: [facility] 07-13-2022 16:28-0400 Body weight 73.48 kg Krislyn Aberegg PA Work Phone: [facility] 07-13-2022 16:28-0400 Diastolic blood pressure 72 mm[Hg] Krislyn Aberegg PA Work Phone: [facility] 07-13-2022 16:28-0400 Heart rate 86 /min Krislyn Aberegg PA Work Phone: [facility] 07-13-2022 16:28-0400 Respiratory rate 16 /min Krislyn Aberegg PA Work Phone: [facility] 07-13-2022 16:28-0400 SaO2% (BldA) [Mass fraction] 99 % Krislyn Aberegg PA Work Phone: [facility] 07-13-2022 16:28-0400 Systolic blood pressure 122 mm[Hg] Krislyn Aberegg PA Work Phone: [facility] 03-27-2022 16:58-0500 Body temperature 98.49 [degF] Gena Olivabow PA-C Work Phone: [facility] 03-27-2022 16:58-0500 Body weight 72.3 kg Gena Olivabow PA-C Work Phone: [facility] 03-27-2022 16:58-0500 Diastolic blood pressure 86 mm[Hg] Gena Denbow PA-C Work Phone: [facility] 03-27-2022 16:58-0500 Heart rate 106 /min Gena Denbow PA-C Work Phone: [facility] 03-27-2022 16:58-0500 Respiratory rate 18 /min Gena Denbow PA-C Work Phone: [facility] 03-27-2022 16:58-0500 SaO2% (BldA) [Mass fraction] 97 % Gena Denbow PA-C Work Phone: [facility] 03-27-2022 16:58-0500 Systolic blood pressure 130 mm[Hg] Gena Denbow PA-C Work Phone: [facility] 02-02-2022 18:16-0500 Body temperature 98.2 [degF] Peter Quesada MD Work Phone: [facility] 02-02-2022 18:16-0500 Body weight 72.94 kg Peter Quesada MD Work Phone: [facility] 02-02-2022 18:16-0500 Diastolic blood pressure 78 mm[Hg] Peter Quesada MD Work Phone: [facility] 02-02-2022 18:16-0500 Heart rate 90 /min Peter Quesada MD Work Phone: [facility] 02-02-2022 18:16-0500 Respiratory rate 17 /min Peter Quesada MD Work Phone: [facility] 02-02-2022 18:16-0500 SaO2% (BldA) [Mass fraction] 98 % Peter Quesada MD Work Phone: [facility] 02-02-2022 18:16-0500 Systolic blood pressure 118 mm[Hg] Peter Quesada MD Work Phone: [facility] 12-11-2021 16:56-0400 Body weight 72.12 kg NA Gonzalez PA-C Work Phone: [facility] 12-11-2021 16:56-0400 Diastolic blood pressure 72 mm[Hg] NA Gonzalez PA-C Work Phone: [facility] 12-11-2021 16:56-0400 Heart rate 86 /min NA Gonzalez PA-C Work Phone: [facility] 12-11-2021 16:56-0400 Respiratory rate 18 /min NA Gonzalez PA-C Work Phone: [facility] 12-11-2021 16:56-0400 SaO2% (BldA) [Mass fraction] 99 % NA Gonzalez PA-C Work Phone: [facility] 12-11-2021 16:56-0400 Systolic blood pressure 120 mm[Hg] NA Gonzalez PA-C Work Phone: [facility] 10-20-2021 17:20-0400 Body temperature 98.49 [degF] Keven Pendlebury STOPPER GRINDER.CERTIFIED WELLNESS PROGRAM COORDINATOR Work Phone: [facility] 10-20-2021 17:20-0400 Body weight 73.3 kg Keven Pendlebury STOPPER GRINDER.CERTIFIED WELLNESS PROGRAM COORDINATOR Work Phone: [facility] 10-20-2021 17:20-0400 Diastolic blood pressure 94 mm[Hg] Keven Pendlebury STOPPER GRINDER.CERTIFIED WELLNESS PROGRAM COORDINATOR Work Phone: [facility] 10-20-2021 17:20-0400 Heart rate 91 /min Keven Pendlebury STOPPER GRINDER.CERTIFIED WELLNESS PROGRAM COORDINATOR Work Phone: [facility] 10-20-2021 17:20-0400 Respiratory rate 21 /min Keven Pendlebury STOPPER GRINDER.CERTIFIED WELLNESS PROGRAM COORDINATOR Work Phone: [facility] 10-20-2021 17:20-0400 SaO2% (BldA) [Mass fraction] 98 % Keven Pendlebury STOPPER GRINDER.CERTIFIED WELLNESS PROGRAM COORDINATOR Work Phone: [facility] 10-20-2021 17:20-0400 Systolic blood pressure 144 mm[Hg] Keven Pendlebury STOPPER GRINDER.CERTIFIED WELLNESS PROGRAM COORDINATOR Work Phone: [facility] 09-13-2021 15:24-0400 Body temperature 98.29 [degF] Sabine Praisler-Wood STOPPER GRINDER.CERTIFIED WELLNESS PROGRAM COORDINATOR Work Phone: [facility] 09-13-2021 15:24-0400 Body weight 73.94 kg Sabine Praisler-Wood STOPPER GRINDER.CERTIFIED WELLNESS PROGRAM COORDINATOR Work Phone: [facility] 09-13-2021 15:24-0400 Diastolic blood pressure 82 mm[Hg] Sabine Praisler-Wood STOPPER GRINDER.CERTIFIED WELLNESS PROGRAM COORDINATOR Work Phone: [facility] 09-13-2021 15:24-0400 Heart rate 88 /min Sabine Praisler-Wood STOPPER GRINDER.CERTIFIED WELLNESS PROGRAM COORDINATOR Work Phone: [facility] 09-13-2021 15:24-0400 Respiratory rate 16 /min Sabine Praisler-Wood STOPPER GRINDER.CERTIFIED WELLNESS PROGRAM COORDINATOR Work Phone: [facility] 09-13-2021 15:24-0400 SaO2% (BldA) [Mass fraction] 99 % Sabine Praisler-Wood STOPPER GRINDER.CERTIFIED WELLNESS PROGRAM COORDINATOR Work Phone: [facility] 09-13-2021 15:24-0400 Systolic blood pressure 136 mm[Hg] Sabine Praisler-Wood STOPPER GRINDER.CERTIFIED WELLNESS PROGRAM COORDINATOR Work Phone: [facility] 07-28-2021 17:39-0400 Body temperature 98.2 [degF] Nathalie Bogner PA-C Work Phone: [facility] 07-28-2021 17:39-0400 Body weight 73.85 kg Nathalie Bogner PA-C Work Phone: [facility] 07-28-2021 17:39-0400 Diastolic blood pressure 80 mm[Hg] Nathalie Bogner PA-C Work Phone: [facility] 07-28-2021 17:39-0400 Heart rate 96 /min Nathalie Bogner PA-C Work Phone: [facility] 07-28-2021 17:39-0400 Respiratory rate 18 /min Nathalie Bogner PA-C Work Phone: [facility] 07-28-2021 17:39-0400 SaO2% (BldA) [Mass fraction] 99 % Nathalie Bogner PA-C Work Phone: [facility] 07-28-2021 17:39-0400 Systolic blood pressure 122 mm[Hg] Nathalie Bogner PA-C Work Phone: [facility] 07-14-2021 17:44-0400 Body temperature 98.29 [degF] Nelly Athy PA-C Work Phone: [facility] 07-14-2021 17:44-0400 Body weight 72.58 kg Nelly Athy PA-C Work Phone: [facility] 07-14-2021 17:44-0400 Diastolic blood pressure 72 mm[Hg] Nelly Athy PA-C Work Phone: [facility] 07-14-2021 17:44-0400 Heart rate 94 /min Nelly Athy PA-C Work Phone: [facility] 07-14-2021 17:44-0400 Respiratory rate 18 /min Nelly Athy PA-C Work Phone: [facility] 07-14-2021 17:44-0400 SaO2% (BldA) [Mass fraction] 97 % Nelly Athy PA-C Work Phone: [facility] 07-14-2021 17:44-0400 Systolic blood pressure 124 mm[Hg] Nelly Athy PA-C Work Phone: [facility] 06-25-2021 17:23-0400 Body temperature 98.1 [degF] Marcelo Allen APRN.CERTIFIED WELLNESS PROGRAM COORDINATOR Work Phone: [facility] 06-25-2021 17:23-0400 Body weight 73.03 kg Marcelo Allen APRN.CERTIFIED WELLNESS PROGRAM COORDINATOR Work Phone: [facility] 06-25-2021 17:23-0400 Diastolic blood pressure 82 mm[Hg] Marcelo Allen STOPPER GRINDER.CERTIFIED WELLNESS PROGRAM COORDINATOR Work Phone: [facility] 06-25-2021 17:23-0400 Heart rate 87 /min Marcelo Allen STOPPER GRINDER.CERTIFIED WELLNESS PROGRAM COORDINATOR Work Phone: [facility] 06-25-2021 17:23-0400 Respiratory rate 18 /min Marcelo Allen STOPPER GRINDER.CERTIFIED WELLNESS PROGRAM COORDINATOR Work Phone: [facility] 06-25-2021 17:23-0400 SaO2% (BldA) [Mass fraction] 98 % Marcelo Alejandro STOPPER GRINDER.CERTIFIED WELLNESS PROGRAM COORDINATOR Work Phone: [facility] 06-25-2021 17:23-0400 Systolic blood pressure 130 mm[Hg] Marcelojose Allen STOPPER GRINDER.CERTIFIED WELLNESS PROGRAM COORDINATOR Work Phone: [facility] Encounters Encounter Date Encounter Type Care Provider Facility Start: 03-15-2023 End: 03-16-2023 ambulatory SARAN GONZALEZ Facility:[facility] Start: 03-11-2023 End: [facility] Start: 02-22-2023 Chart abstracting Effie gupta [facility] Work Phone: Psychology Start: 02-12-2023 Telephone encounter Effie melgar [facility] Work Phone: Psychology Procedures Date Procedure Procedure Detail Performing Clinician Start: 02-11-2023 COVID & INFLUENZA A/ B & RSV NAAT, ROUTINE M Saran Gonzalez PA-C Work Phone: Start: 08-13-2022 Lipid 1996 panel - S isabel or Plasma DUNG Gonzalez PA-C Work Phone: Start: 03-27-2022 Culture bacterial quanttative colony count urine Gena Hutchinson PA-C Work Phone: Start: 03-27-2022 Urnls dip stick/tabl et rgnt auto w/o microscopy Sabine Lyon STOPPER GRINDER.CERTIFIED WELLNESS PROGRAM COORDINATOR Work Phone: Start: 02-02-2022 [facility] (POC) Peter Quesada MD Work Phone: Start: 10-20-2021 Urnls dip stick/tabl et rgnt auto w/o microscopy [facility] Start: 09-13-2021 Urnls dip stick/tabl et rgnt auto w/o microscopy [facility] Provider Start: 07-28-2021 Urnls dip stick/tabl et rgnt auto w/o microscopy Nelly Allen PA-C Work Phone: Start: 07-14-2021 Urnls dip stick/tabl et rgnt auto w/o microscopy Nelly Allen PA-C Work Phone: Start: 06-25-2021 Urnls dip stick/tabl et rgnt auto w/o microscopy Cheryle Braswell APRN.CERTIFIED WELLNESS PROGRAM COORDINATOR Work Phone: Start: 12-23-2020 Adult depression scr eening assessment Marcelo Allen APRN.CERTIFIED WELLNESS PROGRAM COORDINATOR Work Phone: Start: 08-20-2015 Colonoscopy Marcelo san STOPPER GRINDER.CERTIFIED WELLNESS PROGRAM COORDINATOR Work Phone: Start: 08-20-2015 Mammography Marcelo san APRN.CERTIFIED WELLNESS PROGRAM COORDINATOR Work Phone: Plan of Treatment Date Care Activity Detail Author Start: 08-14-2027 Lipid 1996 panel - S isabel or Plasma Lipid Screening [facility] Start: 08-14-2027 LIPID SCREEN LIPID SCREEN [facility] Start: 05-21-2026 Urine microalbumin profile [facility] Start: 12-23-2025 PNEUMOCOCCAL (4 - PP SV23 if available, else PCV20) PNEUMOCOCCAL (4 - PPSV23 if available, else PCV20) [facility] Start: 12-23-2025 PNEUMOCOCCAL (4 - PP SV23 or PCV20) PNEUMOCOCCAL (4 - PPSV23 or PCV20) [facility] Start: 12-23-2025 Pneumococcal vaccination Pneum ococcal Vaccine (4 - PPSV23 or PCV20) [facility] Start: 08-13-2025 DIABETES SCREEN DIABETES SCREEN [facility] Start: 08-13-2025 Diabetes Screening Diabetes Screenin g [facility] Start: 02-12-2024 Annual PCP Team Sleeve Setter ernestine Disease Visit Annual PCP Team Chronic Disease Visit [facility] Start: 02-12-2024 Covid-19 Vaccine ( season) Covid-19 Vaccine ( season) [facility] Immunizations Immunization Date Immunization Notes Care Provider Yisel peralta 12-23-2020 pneumococcal polysaccharide vaccine, 23 valent Marcelo Allen STOPPER GRINDER.CERTIFIED WELLNESS PROGRAM COORDINATOR Work Phone: [facility] 12-23-2020 zoster vaccine recombinant Marcelo Allen STOPPER GRINDER.CERTIFIED WELLNESS PROGRAM COORDINATOR Work Phone: [facility] 07-04-2020 COVID-19 vaccine, ag e 12+ yr (PFIZER-BIONTECH - PURPLE TOP) Marcelo Allen STOPPER GRINDER.CERTIFIED WELLNESS PROGRAM COORDINATOR Work Phone: [facility] 06-20-2020 pneumococcal conjuga te vaccine, 13 valent Marcelo Allen STOPPER GRINDER.CERTIFIED WELLNESS PROGRAM COORDINATOR Work Phone: [facility] 06-11-2020 COVID-19 vaccine, ag e 12+ yr (PFIZER-BIONTECH - PURPLE TOP) Marcelo Allen STOPPER GRINDER.CERTIFIED WELLNESS PROGRAM COORDINATOR Work Phone: [facility] 05-21-2016 tetanus toxoid, redu brayan diphtheria toxoid, and acellular pertussis vaccine, adsorbed Marcelo Allen STOPPER GRINDER.CERTIFIED WELLNESS PROGRAM COORDINATOR Work Phone: [facility] 12-09-2015 tetanus and diphther ia toxoids, adsorbed, preservative free, for adult use (2 Lf of tetanus toxoid and 2 Lf of diphtheria toxoid) Marcelo Allen STOPPER GRINDER.CERTIFIED WELLNESS PROGRAM COORDINATOR Work Phone: [facility] 01-30-2013 pneumococcal polysaccharide vaccine, 23 valent Marcelo Alejandro STOPPER GRINDER.CERTIFIED WELLNESS PROGRAM COORDINATOR Work Phone: [facility] 12-03-2011 tetanus toxoid, redu brayan diphtheria toxoid, and acellular pertussis vaccine, adsorbed Marcelo Alejandro STOPPER GRINDER.CERTIFIED WELLNESS PROGRAM COORDINATOR Work Phone: [facility] Payers Date Payer Category Payer Medicaid [id number] 2020 Medicaid [employer] [id number] 2020-Present [phone] [address] [place] [address] Medicaid [id number] 2020 Medicaid [id number] Social History Date Type Detail Facility Start: 09-26-2014 End: 12-11-2021 Tobacco smoking status NHIS Ex-smoker [facility] End: 06-27-2014 History of tobacco use Current smoker [facility] End: 06-27-2014 History of tobacco use Cigarette Smoker [facility] Start: 09-26-2014 End: 12-11-2021 Tobacco use and exposure Smokeless tobacco non-user [facility] Start: 06-25-2021 End: 02-11-2023 Alcohol intake Current non-drinker of alcohol (finding) [facility] Start: 1960 Sex Assigned At Not on file C [facility] Start: 06-15-2021 End: 02-02-2022 Exposure to SARS-CoV-2 (event) Not sure [facility] Start: 07-30-2022 End: 02-11-2023 History of Social function [facility] Start: 07-30-2022 End: 02-11-2023 Tobacco use panel [facility] Adult Depression Scr eening Assessment 1 [facility] Clinical Notes 10-10-2015 to 04-14-2023 Effie Verdin LPCC - 02/22/2023 8:57 AM ESTTelephone Encounter - Effie Verdin LPCC - 02/12/2023 9:42 AM ESTPatient Carol Becerra PA-C - 02/11/2023 5:00 PM EST Note Date & Type Note Facility 04-14-2023 Note Patient Outreach (IN [facility]) MADISONKYLER ([id number]) 1960 F Date Time Provider Department 04/14/23 Carol GONZALEZ During your visit today, we recorded the following information about you: Allergies As of Date: 04/14/2023 Noted Allergy Reaction OXYCODONE 08/07/2010 11 - Vomiting AMITRIPTYLINE 07/25/2012 14 - Other: See Comments Comments: Caused palpatations AUGMENTIN (AMOXICILLIN-POT CLAVUL*05/31/2009 8 - GI Upset 11 - Vomiting CODEINE 04/01/2005 8 - GI Upset DOXYCYCLINE 04/11/2005 EGG 03/27/2013 8 - GI Upset LODINE XL (ETODOLAC) 04/11/2005 PREDNISONE 06/09/2007 1 - Mental Status Change PREVACID (LANSOPRAZOLE) 04/11/2005 PROZAC (FLUOXETINE HCL) 04/11/2005 Date Reviewed: 02/11/2023 Reviewed by: Cinthya Guerrero Ma - Fully Assessed Visit Diagnosis:Encounter for screening mammogram for breast cancer [Z12.31] Order(s):[facility] SCREENING [[id number]] Order #: [id number] FUTURE Prescriptions as of 04/19/2023 - Omeprazole Magnesium (PRILOSEC OTC) 20 mg tablet Take 1 tablet by mouth two times a day. - traZODone (DESYREL) 50 mg tablet Take 1 tablet by mouth daily at bedtime. - gabapentin (NEURONTIN) 300 mg capsule Take 1 capsule by mouth three times a day for 90 days. - clonazePAM (KLONOPIN) 0.5 mg tablet Take 0.5 tablets by mouth twice daily for 90 days. Try to wean by 1/2 Dose a few times a week. - citalopram (CELEXA) 40 mg tablet Take 1 tablet by mouth once daily. - ferrous gluconate 324 mg (37.5 mg iron) tablet Take 1 tablet by mouth daily with breakfast. - cyanocobalamin (VITAMIN B-12) 1,000 mcg tab Take 1 tablet by mouth once daily. Meds Comments as of 01/22/2017: 01/22/17 Takes Celexa and Prilosec. Out of Clonazepam. Ngerita Cheek RN Problem List As Of Date 04/14/2023 Noted Resolved Positive Helicobacter pylori test [A04.8] Esophageal reflux [K21.9] 12/22/2006 Tobacco use disorder [F17.200] 06/09/2007 09/06/2017 Adjustment disorder with depressed mood [F43.21]12/01/2007 Shortness of breath [R06.02] 12/26/2007 09/06/2017 Colitis [K52.9] 10/31/2009 09/06/2017 Anxiety [F41.9] 08/07/2010 09/06/2017 Retroperitoneal fibrosis [K68.2] 08/07/2010 Acute unilateral obstructive uropathy [N13.9] 08/07/2010 09/06/2017 COPD (chronic obstructive pulmonary disease) wi*11/12/2011 08/22/2014 Acne [L70.9] 12/03/2011 09/06/2017 Iron deficiency anemia [D50.9] 07/29/2012 Neck pain, chronic [M54.2, G89.29] 01/18/2013 Myofascial pain [M79.18] 10/16/2013 Irritable bowel syndrome with diarrhea [K58.0] 09/19/2015 09/06/2017 Anxiety neurosis [F41.1] 09/19/[address] of the abdomen [R93.5] 10/10/2015 Diverticulitis of large intestine without perfo*10/10/2015 LLQ pain [R10.32] 10/10/2015 09/06/2017 Chronic progressive renal failure, stage 3 (mod*09/06/2017 RLS (restless legs syndrome) [G25.81] 09/06/2017 Atrophy of left kidney [N26.1] 01/19/2018 Aortic disorder (HCC) [I77.9] 05/10/2021 Palpitations [R00.2] 11/27/2021 Encounter Status:Closed by KURTIS, PRODUSER on 04/19/23 [facility] 03-11-2023 Note HNO ID: [id number] Author: Carol Gonzalez PA-C Service: ? Author Type: Physician Site Administrator Type: Progress Notes Filed: 03/11/2023 9:18 PM Note Text: 62 year old female with c/o 4 week follow up on initiation gabapentin for anxiety/ mood stabilizing. Took 3-4 days on antibiotic- unclear and giving varying details Watery diarrhea 3-5/day, has slowed last few days No fever. Nauseated, no vomiting. No urinary sx. Appetite not that good: eating soup, rice. ETOH 2-3 tumblers with probably 3 shots of vodka in each. Gabapentin has really helped anxiety though discussed this is hard to ascertain due to ETOH abuse. HISTORIES FAMILY HISTORY Problem Relation Age of Onset Diabetes Father Cervical Cancer Paternal Grandmother Stroke Paternal Grandfather Psychiatry Mother Heart Father Hypertension Father PAST MEDICAL HISTORY Diagnosis Date Abnormal CT of the abdomen 10/10/2015 10/16/09 inflammation cecum and ascending colon consistent with infectious colitis, possibly Chrohn's 07/05/10 soft tissue mass encasing the aorta, iliac and mid distal left ureter suggesting recto- peritoneal fibrosis with obstructive uropathy on left. 05/28/15: mild dilatation intrahepatic biliary ductal system, status post cholecystectomy, common bile duct it at the ampulla level at 1.1 cm, mild splenomegaly, large hiatal hernia, sigmoid diverticulosis with possible stranding indicating diverticulitis, calcified aortic plaques, subcentimeter cyst Lower pole of the right kidney, bulky uterus with leiomyomatous appearance. 07/31/15: CT was similar findings with rectosigmoid junctional narrowing again noted 09/16/15 cortical atrophy noted in the left kidney in addition to continued rectosigmoid junctional narrowing with recommendation for colonoscopy 11/06/15 CT of abdomen was considered normal with exception of leiomyomatous uterus. 06/07/17 umbilical hernia with fat, atrophy of left kidney, borderline spleen, Acute unilateral obstructive uropathy 08/07/2010 Adjustment disorder with depressed mood 12/01/2007 September 06, 2017 Treated in the past with Ativan, Klonopin both with improvement over many years. Previous trials with amitriptyline, buspirone, bupropion, paroxetine were unhelpful. Anxiety 08/07/2010 Atrophy of left kidney 01/19/2018 01/17/18 CT abdomen severe chronic left renal atrophy with moderate right hydronephrosis, proximal ureter dilated Chronic progressive renal failure, stage 3 (moderate) (HCC) 09/06/2017 RENAL FLOWSHEET Latest Ref Rng AND Units 07/28/2012 06/04/2015 03/31/2017 CREATININE 0.58 - 0.96 mg/dL 0.93 1.00 1.52 (H) 07/05/10 CT retroperitoneal fibrosis with obstructive uropathy left kidny 09/16/15 CT demonstrated cortical atrophy l kidney COPD (chronic obstructive pulmonary disease) with chronic bronchitis 11/12/2011 Diverticulitis of large intestine without perforation or abscess without bleeding 10/10/2015 CT abd/ pel 05/28/15 treated in ED [facility]. Has f/u with Dr. Arthur for EGD and colonoscopy but cancelled and did not follow up. Diverticulitis of sigmoid colon 2015 Dysentery Esophageal reflux 12/22/2006 Controlled on omeprazole with minimal breakthrough. 2015 failed to complete scheduled EGD. + H. Pylori testing. 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 Tobacco abuse disorder stopped smoking PAST SURGICAL HISTORY Procedure Laterality Date CHOLECYSTECTOMY 1995 Cholecystectomy Social History Tobacco Use Smoking status: Former Years: 25 Types: Cigarettes Quit date: 06/27/2014 Years since quittin.7 Smokeless tobacco: Never Substance Use Topics Alcohol use: No Drug use: No ACTIVE PROBLEM LIST Positive Helicobacter Pylori Test Esophageal Reflux Adjustment Disorder With Depressed Mood Retroperitoneal Fibrosis Iron Deficiency Anemia Neck Pain, Chronic Myofascial Pain Anxiety Neurosis Abnormal CT of The Abdomen Diverticulitis of Large Intestine Without Perforation Or Abscess Without Bleeding Chronic Progressive Renal Failure, Stage 3 (Moderate) (Hcc) Rls (Restless Legs Syndrome) Atrophy of Left Kidney Aortic Disorder (Hcc) Palpitations Current Outpatient Medications Medication Sig Dispense Refill gabapentin (NEURONTIN) 300 mg capsule Take 1 capsule by mouth three times a day for 90 days. 90 capsule 2 Omeprazole Magnesium (PRILOSEC OTC) 20 mg tablet Take 1 tablet by mouth twice daily. 60 tablet 5 clonazePAM (KLONOPIN) 0.5 mg tablet Take 0.5 tablets by mouth twice daily for 90 days. Try to wean by 1/2 Dose a few times a week. 54 tablet 0 citalopram (CELEXA) 40 mg tablet Take 1 tablet by mouth once daily. 30 tablet 11 ferrous gluconate 324 mg (37.5 mg iron) tablet Take 1 tablet by mouth daily with breakfast. 30 tablet 5 cyanocobalamin (VITAMIN B-12) 1,000 mcg tab Take 1 tablet by m (more content not included)... [facility] 02-22-2023 Note HNO ID: [id number] Author: Effie Verdin LPCC Service: ? Author Type: Therapist Type: Progress Notes Filed: 02/22/2023 8:58 AM Note Text: Behavioral Health Social Work Progress Note Patient identified for [facility] from: PCP Reason for referral: [facility] Assessment [facility] encounter type: MyChart Message Attempts to Outreach: 3 attempts Referral made: Psychology - Internal Psychology-Internal referral type: Therapy Final Disposition: Resources given Patient Discharged?: Yes Patient reported that caregiver was able to meet their needs today?: N/A therapist sent patient [email or web address] follow up message offering assistance with linkage to behavioral health services. KAYCEE Cantor February 22, 2023 [facility] 02-22-2023 History of Presen t illness Narrative Behavioral Health Social Work Progress Note Patient identified for [facility] from: PCP Reason for referral: [facility] Assessment [facility] encounter type: [employer] Message Attempts to Outreach: 3 attempts Referral made: Psychology - Internal Psychology-Internal referral type: Therapy Final Disposition: Resources given Patient Discharged?: Yes Patient reported that caregiver was able to meet their needs today?: N/A therapist sent patient [email or web address] follow up message offering assistance with linkage to behavioral health services. KAYCEE Cantor February 22, 2023 documented in this encounter [facility] 02-12-2023 Miscellaneous Notes Behavioral Health Social Work Progress Note Patient identified for [facility] from: PCP Reason for referral: [facility] Assessment [facility] encounter type: Telephone Encounter Attempts to Outreach: 1 attempt Patient Discharged?: No Patient reported that caregiver was able to meet their needs today?: N/A Phone call placed today, phone would supervisor opening and picking and then disconnect. therapist also initial outreach by completing message via [email or web address]. KAYCEE Cantor February 12, 2023 documented in this encounter [facility] 02-11-2023 Note HNO ID: [id number] Author: Carol Gonzalez PA-C Service: ? Author Type: Physician Site Administrator Type: Progress Notes Filed: 02/12/2023 3:02 AM Note Text: 62 year old female with c/o here for follow up Diarrhea over last 5 days At most 3-4, watery No fever No lightheadedness, dizziness, muscle cramps. Sinuses plugged up. A little cough. Weaned completely off Clonazepam. Feels needs something for panic attacks. Being in crowds can trigger, sometimes just out of the blue. Right now caring for mother with Altzheimer's which is bad. Aortic stenosis, mild Stable. Has occasional palpitations. 12/19/2021 echo: - Technically difficult exam due to body habitus. - Exam indication: Palpitations - The left ventricle is small. Left ventricular systolic function is normal. EF = 57 ? 5% (2D biplane) Grade I left ventricular diastolic dysfunction. - The right ventricle is normal in size. Right ventricular systolic function is normal. - There are no significant valvular abnormalities. - The patient has not had a prior CC echocardiographic exam for comparison. Chronic progressive renal failure, stage 3 (moderate) (hcc) Atrophy of left kidney 06/22/2022/ in [facility] ER left flank pain with stable VS, UA +5-10 WBCs treated with Bact[address]. [address] abd/pel: moderate cortical atrophy left kidney consistent with medical renal disease, small hiatal hernia, calcification abdominal aorta without aneursym 09/16/2021 CT Mild scattered aortoiliac atherosclerotic calcifications with diffuse thickening of the wall of the abdominal aorta and proximal common iliac arteries concerning for arteritis such as giant cell arteritis.Consult to vascular surgery placed. Has had three vascular consults which she failed to schedule Rls (restless legs syndrome) Myofascial pain Legs shake every night Feels like things are crawling on leg. Walks a lot during the day, 1 mile Chronic aches persistent Tired a lot. Hasn't done well with medication trials. Vitamin b12 deficiency Iron deficiency anemia due to chronic blood loss Current medications: Ferrous gluconate 324mg daily with breakfast. Cyanocobalamin 1000mcg daily Hasn't completed lab Gastroesophageal reflux disease, unspecified whether esophagitis present Current medication: Omeprazole OTC 20mg daily AC. Current symptoms: not unless eats spicy, spaghetti. Last Mg level if on PPI chronically: due. Heartburn is controlled: No. Dysphagia: No. Bloody or black stools: No. Bowel changes: No. Anxiety neurosis Adjustment disorder with depressed mood Current medications: Citalopram 40mg daily Off Klonopin completely!! Very impressed she followed thorugh. Feels she has a step up in energy and thinking more clearly. Takes Benadryl at night to sleep sometimes Having panic attacks. Being trigger by mother who berates her and makes statement she should have aborted her triggering childhood memories. Not in counseling. Hasn't been very successful in past. HISTORIES FAMILY HISTORY Problem Relation Age of Onset Diabetes Father Cervical Cancer Paternal Grandmother Stroke Paternal Grandfather Psychiatry Mother Heart Father Hypertension Father PAST MEDICAL HISTORY Diagnosis Date Abnormal CT of the abdomen 10/10/2015 10/16/09 inflammation cecum and ascending colon consistent with infectious colitis, possibly Chrohn's 07/05/10 soft tissue mass encasing the aorta, iliac and mid distal left ureter suggesting recto- peritoneal fibrosis with obstructive uropathy on left. 05/28/15: mild dilatation intrahepatic biliary ductal system, status post cholecystectomy, common bile duct it at the ampulla level at 1.1 cm, mild splenomegaly, large hiatal hernia, sigmoid diverticulosis with possible stranding indicating diverticulitis, calcified aortic plaques, subcentimeter cyst Lower pole of the right kidney, bulky uterus with leiomyomatous appearance. 07/31/15: CT was similar findings with rectosigmoid junctional narrowing again noted 09/16/15 cortical atrophy noted in the left kidney in addition to continued rectosigmoid junctional narrowing with recommendation for colonoscopy 11/06/15 CT of abdomen was considered normal with exception of leiomyomatous uterus. 06/07/17 umbilical hernia with fat, atrophy of left kidney, borderline spleen, Acute unilateral obstructive uropathy 08/07/2010 Adjustment disorder with depressed mood 12/01/2007 September 06, 2017 Treated in the past with Ativan, Klonopin both with improvement over many years. Previous trials with amitriptyline, buspirone, bupropion, paroxetine were unhelpful. Anxiety 08/07/2010 Atrophy of left kidney 01/19/2018 01/17/18 CT abdomen severe chronic left renal atrophy with moderate right hydronephrosis, proximal ureter dilated Chronic progressive renal failure, stage 3 (moderate) (HCC) 09/06/2017 RENAL FLOWSHEET Latest Ref Rng AND Units 07/28/2012 06/04/2015 03/31/2017 CREATININE 0.58 - 0.96 (more content not included)... [facility] 02-11-2023 Instructions Carol Gonzalez PA-C - 02/11/2023 5:48 PM EST Please stay in quarantine until results of Covid testing return to tomorrow. Mask around others and maintain 6 foot distance to protect them. Facts About the Common Cold and Upper Respiratory Infection: Common symptoms include: sore throat, tender lymph nodes, low grade fever 99-101F for first few days, watery nasal drip that progresses to thick yellow-green mucus on blowing and on coughing, facial/sinus pressure, headache, chest tightness and tiredness/ fatigue. Usually they peak with the worst symptoms about 5-7 days and take another 5-7 days to clear, in other words 10-14 days. Occasionally there will be a persistent nagging cough or some residual minor nasal congestion up to several weeks. Viral infections are not susceptible to antibiotics. Due to the critical issues with global antibiotic resistance, we do not prescribe antibiotics if we suspect viral sources. Antibiotics can cause serious complications and therefore should be reserved for only serious infections. Get plenty of rest. Force fluids daily with water and juices. Nasal saline spray may help to keep nose open and moist: 2-3 squirts each side every few hours. This also help to rinse out virus and bacteria causing infection. Cool mist humidifier in room during sleep. May use OTC Tylenol or Ibuprofen as direct for discomfort. For sore throat, warm salt water gargles, Chlorseptic spray, lozenges or other OTC sore throat remedies may help. Decongestants such as plain Sudafed or with expectorant such as Mucinex D may help with nasal stuffiness or facial and sinus pressure. Generics are fine. These are over the counter but require an adult signature. Oxymetolazine nasal decongestants (Afrin, Dristan, Howard's) may also help (in place of oral decongestants) but should not be used longer than 48-72 hours due to potential rebound congestion. OTC antihistamines such Benadryl (make cause drowsiness) or Zyrtec/ Clariten/ Ashley (non-drowsy) may help watery nasal drainage though they are generally not recommended because they dry mucus and make it sticky. The flow of mucus is important to help your body rid the virus. If cough keeps you awake at night, try OTC remedies first, such as Nyquil, Delsym, Howard's 44 or Mucinex DM. If this doesn't help you sleep, call the office for a prescription. Be careful if you are combining cough and cold medications that you aren't doubling the medicines. If you aren't sure: ask the pharmacist for help. Cough or sneeze into your sleeve to prevent spread of infected secretions. Wash your hands frequently. Try not to cough or sneeze on surfaces others might touch. If symptoms fail to improve in 5-7 days, fever > 100.5F, general worsening, or other concerning symptoms, return to [facility] or Carol Gonzalez PA-C. documented in this encounter [facility] 02-11-2023 History of Presen t illness Narrative 62 year old female with c/o here for follow up Diarrhea over last 5 days At most 3-4, watery No fever No lightheadedness, dizziness, muscle cramps. Sinuses plugged up. A little cough. Weaned completely off Clonazepam. Feels needs something for panic attacks. Being in crowds can trigger, sometimes just out of the blue. Right now caring for mother with Altzheimer's which is bad. Aortic stenosis, mild Stable. Has occasional palpitations. 12/19/2021 echo: - Technically difficult exam due to body habitus. - Exam indication: Palpitations - The left ventricle is small. Left ventricular systolic function is normal. EF = 57 5% (2D biplane) Grade I left ventricular diastolic dysfunction. - The right ventricle is normal in size. Right ventricular systolic function is normal. - There are no significant valvular abnormalities. - The patient has not had a prior CC echocardiographic exam for comparison. Chronic progressive renal failure, stage 3 (moderate) (hcc) Atrophy of left kidney 06/22/2022/ in [facility] ER left flank pain with stable VS, UA +5-10 WBCs treated with Bactrim. CT abd/pel: moderate cortical atrophy left kidney consistent with medical renal disease, small hiatal hernia, calcification abdominal aorta without aneursym 09/16/2021 CT Mild scattered aortoiliac atherosclerotic calcifications with diffuse thickening of the wall of the abdominal aorta and proximal common iliac arteries concerning for arteritis such as giant cell arteritis.Consult to vascular surgery placed. Has had three vascular consults which she failed to schedule Rls (restless legs syndrome) Myofascial pain Legs shake every night Feels like things are crawling on leg. Walks a lot during the day, 1 mile Chronic aches persistent Tired a lot. Hasn't done well with medication trials. Vitamin b12 deficiency Iron deficiency anemia due to chronic blood loss Current medications: Ferrous gluconate 324mg daily with breakfast. Cyanocobalamin 1000mcg daily Hasn't completed lab Gastroesophageal reflux disease, unspecified whether esophagitis present Current medication: Omeprazole OTC 20mg daily AC. Current symptoms: not unless eats spicy, spaghetti. Last Mg level if on PPI chronically: due. Heartburn is controlled: No. Dysphagia: No. Bloody or black stools: No. Bowel changes: No. Anxiety neurosis Adjustment disorder with depressed mood Current medications: Citalopram 40mg daily Off Klonopin completely!! Very impressed she followed thorugh. Feels she has a step up in energy and thinking more clearly. Takes Benadryl at night to sleep sometimes Having panic attacks. Being trigger by mother who berates her and makes statement she should have aborted her triggering childhood memories. Not in counseling. Hasn't been very successful in past. HISTORIES FAMILY HISTORY Problem Relation Age of Onset Diabetes Father Cervical Cancer Paternal Grandmother Stroke Paternal Grandfather Psychiatry Mother Heart Father Hypertension Father PAST MEDICAL HISTORY Diagnosis Date Abnormal CT of the abdomen 10/10/2015 10/16/09 inflammation cecum and ascending colon consistent with infectious colitis, possibly Chrohn's 07/05/10 soft tissue mass encasing the aorta, iliac and mid distal left ureter suggesting recto- peritoneal fibrosis with obstructive uropathy on left. 05/28/15: mild dilatation intrahepatic biliary ductal system, status post cholecystectomy, common bile duct it at the ampulla level at 1.1 cm, mild splenomegaly, large hiatal hernia, sigmoid diverticulosis with possible stranding indicating diverticulitis, calcified aortic plaques, subcentimeter cyst Lower pole of the right kidney, bulky uterus with leiomyomatous appearance. 07/31/15: CT was similar findings with rectosigmoid junctional narrowing again noted 09/16/15 cortical atrophy noted in the left kidney in addition to continued rectosigmoid junctional narrowing with recommendation for colonoscopy 11/06/15 CT of abdomen was considered normal with exception of leiomyomatous uterus. 06/07/17 umbilical hernia with fat, atrophy of left kidney, borderline spleen, Acute unilateral obstructive uropathy 08/07/2010 Adjustment disorder with depressed mood 12/01/2007 September 06, 2017 Treated in the past with Ativan, Klonopin both with improvement over many years. Previous trials with amitriptyline, buspirone, bupropion, paroxetine were unhelpful. Anxiety 08/07/2010 Atrophy of left kidney 01/19/2018 01/17/18 CT abdomen severe chronic left renal atrophy with moderate right hydronephrosis, proximal ureter dilated Chronic progressive renal failure, stage 3 (moderate) (HCC) 09/06/2017 RENAL FLOWSHEET Latest Ref Rng & Units 07/28/2012 06/04/2015 03/31/2017 CREATININE 0.58 - 0.96 mg/dL 0.93 1.00 1.52 (H) 07/05/10 CT retroperitoneal fibrosis with obstructive uropathy left kidny 09/16/15 CT demonstrated cortical atrophy l kidney COPD (chronic obstructive pulmonary disease) with chronic bronchitis (HCC) 11/12/2011 Diverticulitis of large intestine without perforation or abscess without bleeding 10/10/2015 CT abd/ pel 05/28/15 treated in ED [facility]. Has f/u with Dr. Arthur for EGD and colonoscopy but cancelled and did not follow up. Diverticulitis of sigmoid colon 2015 Dysentery Esophageal reflux 12/22/2006 Controlled on omeprazole with minimal breakthrough. 2015 failed to complete scheduled EGD. + H. Pylori testing. 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 Tobacco abuse disorder stopped smoking PAST SURGICAL HISTORY Procedure Laterality Date CHOLECYSTECTOMY 1996 Cholecystectomy Social History Tobacco Use Smoking status: Former Years: 25 Types: Cigarettes Quit date: 06/27/2014 Years since quittin.6 Smokeless tobacco: Never Substance Use Topics Alcohol use: No Drug use: No ACTIVE PROBLEM LIST Positive Helicobacter Pylori Test Esophageal Reflux Adjustment Disorder With Depressed Mood Retroperitoneal Fibrosis Iron Deficiency Anemia Neck Pain, Chronic Myofascial Pain Anxiety Neurosis Abnormal CT of The Abdomen Diverticulitis of Large Intestine Without Perforation Or Abscess Without Bleeding Chronic Progressive Renal Failure, Stage 3 (Moderate) (Hcc) Rls (Restless Legs Syndrome) Atrophy of Left Kidney Aortic Disorder (Hcc) Palpitations Current Outpatient Medications Medication Sig Dispense Refill Omeprazole Magnesium (PRILOSEC OTC) 20 mg tablet Take 1 tablet by mouth twice daily. 60 tablet 5 clonazePAM (KLONOPIN) 0.5 mg tablet Take 0.5 tablets by mouth twice daily for 90 days. Try to wean by 1/2 Dose a few times a week. 54 tablet 0 citalopram (CELEXA) 40 mg tablet Take 1 tablet by mouth once daily. 30 tablet 11 ferrous gluconate 324 mg (37.5 mg iron) tablet Take 1 tablet by mouth daily with breakfast. (Patient not taking: Reported on 07/30/2022) 30 tablet 5 cyanocobalamin (VITAMIN B-12) 1,000 mcg tab Take 1 tablet by mouth once daily. (Patient not taking: Reported on 07/30/2022) 90 tablet 3 Current Facility-Administered Medications Medication Dose Route Frequency Provider Last Rate Last Admin perflutren lipid microspheres 1.3 mL in NaCl (PF) 0.9% 10 mL injection (DEFINITY) INTRAVENOUS DIRECTED PRN Carol Gonzalez PA-C sodium chloride 0.9 % (flush) 10 mL (BD POSIFLUSH) 10 mL INTRAVENOUS DIRECTED PRN Carol Gonzalez PA-C Pap Testing due on 02/18/2015 HPV Testing due on 02/18/2015 Mammogram Screening due on 08/19/2016 Colorectal Cancer Screening due on 08/19/2016 RSV Vaccine(1 - 1-dose 60+ series) Never done Shingrix Vaccine(2 of 2) due on 02/17/2021 Covid-19 Vaccine( season) due on 11/27/2022 EXAM: BP 126/80 Pulse 98 Temp 37.2 C (98.9 F) (Left Tympanic) Resp 18 Wt 73 kg (161 lb) LMP 09/13/2006 SpO2 99% BMI 26.25 kg/m Pleasant well appearing aduolt woman in no acute distress. Alert and oriented all spheres. Normal affect and cognition. Speech normal. No deficits to learning or comprehension. Skin warm, dry, pink to lips and nailbeds. Normal turgor. Respirations regular and unlabored. Chest is normal shape. Lungs are clear to all patel with good air exchange through out. HRRR without murmur or gallop. No lifts, heaves, or rubs. Extrem: no clubbing or cyanosis. Edema: none. Extremities are warm and pink with prompt capillary refill. ASSESSMENT/PLAN: 1. Abnormality of abdominal aorta - ICD9: 747.20, ICD10: Q25.40 (primary diagnosis) - SED RATE ZENAIDA - CONSULT TO VASCULAR SURGERY 2. Aortic stenosis, mild - ICD9: 424.1, ICD10: I35.0 As above 3. 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 Still using ETOH 2-3 / day Discussed need to wean off and she plans to do so. Expressed my great admiration for effort Start gabapentin 300mg three time a day for RLS and anxiety/ mood stabilizer titrating as tolerated from 300mg at HS to TID F/u 1 month Educated on new medication administration, warnings and cautions, common side effects, anticipated duration or therapy, and instructions on cessation management to avoid risks if stops medication. Patient choice was discussed in shared decision making. 4. Adjustment disorder with depressed mood - ICD9: 309.0, ICD10: F43.[address] Badillo - CONSULT TO [facility] 5. Diarrhea of presumed infectious origin - ICD9: 009.3, ICD10: R19.7 - COVID & INFLUENZA A/B & RSV NAAT, ROUTINE 6. Acute upper respiratory infection - ICD9: 465.9, ICD10: J06.9 - Discussed viral etiology and rationale for treatment. - Symptomatic treatment with prn analgesia - Supportive care with fluids and rest - COVID & INFLUENZA A/B & RSV NAAT, ROUTINE Some of this note may have been copied and pasted for the purpose of history context and comparison and has been adjusted for changes in prior data. Carol Gonzalez PA-C documented in this encounter [facility] 08-26-2022 Miscellaneous Notes Patient has been identified by name and date of : Yes Requested Prescriptions Pending Prescriptions Disp Refills Omeprazole Magnesium (PRILOSEC OTC) 20 mg tablet 60 tablet 5 Sig: Take 1 tablet by mouth twice daily. RX INSTRUCTIONS: Patient aware RX will be sent to pharmacy. No need to notify patient. [employer] documented in this encounter [facility] 08-17-2022 Miscellaneous Notes Spoke with pt and she wrote down the information below. Pt will keep you updated on what she decides to do. Kathrine Sterling LPN Noted. This is very dangerous with Klonopin. Please give 180 information: they have walk ins. I would like her to be in out patient treatment. I will need her sign for permission and records transfer back and forth once she is in a program. The other option is that I provide a weaning script for Klonopin. Thanks, Angel Gonzalez PA-C Patient calling to ask for lab results, she can not get into her my chart. Hi Kyler, Cholesterol and triglycerides are up a little- try to cut back on animal products. Iron has come up but still borderline low. Mild liver enzyme elevation: are you using any alcohol? Kidney function is stable, otherwise no concerns: highlighted areas are not concerning, If you have questions, either MyChart message us or call the office at [phone] and ask for me. Best regards, Angel Gonzalez PA-C Written by Carol Gonzalez PA-C on 08/16/2022 8:44 PM EDT Went over results, notes from Angel FRANCISCO with understanding. Patient said she is drinking 2 to 3 large alcoholic drinks every night. documented in this encounter [facility] 07-30-2022 Note HNO ID: [id number] Author: Carol Gonzalez PA-C Service: ? Author Type: Physician Site Administrator Type: Progress Notes Filed: 07/30/2022 8:04 PM Note Text: 61 year old female with c/o 6 month follow up. 07/13/2022 in [facility] care for diarrhea. Negative stool culture, negative C. Diff. Lasted about 3 weeks. Aortic stenosis, mild Stable. Has occasional palpitations. 12/19/2021 echo: - Technically difficult exam due to body habitus. - Exam indication: Palpitations - The left ventricle is small. Left ventricular systolic function is normal. EF = 57 ? 5% (2D biplane) Grade I left ventricular diastolic dysfunction. - The right ventricle is normal in size. Right ventricular systolic function is normal. - There are no significant valvular abnormalities. - The patient has not had a prior CC echocardiographic exam for comparison. 09/16/2021 Mild scattered aortoiliac atherosclerotic calcifications with diffuse thickening of the wall of the abdominal aorta and proximal common iliac arteries concerning for arteritis such as giant cell arteritis.Consult to vascular surgery placed. Chronic progressive renal failure, stage 3 (moderate) (hcc) Atrophy of left kidney 06/22/22/ in [facility] ER left flank pain with stable VS, UA +5-[address]s treated with [address] abd/pel: moderate cortical atrophy left kidney consistent with medical renal disease, small hiatal hernia, calcification abdominal aorta without aneursym Rls (restless legs syndrome) Legs shake every night Feels like things are crawling on leg. Walks a lot during the day tries Myofascial pain Chronic aches persistent Tired a lot. Hasn't done well with medication trials. Vitamin b12 deficiency Iron deficiency anemia due to chronic blood loss Current medications: Ferrous gluconate 324mg daily with breakfast. Cyanocobalamin 1000mcg daily Need updated lab Gastroesophageal reflux disease, unspecified whether esophagitis present Current medication: Omeprazole OTC 20mg daily AC. Current symptoms: not unless eats spicy, spaghetti. Last Mg level if on PPI chronically: due. Heartburn is controlled: No. Dysphagia: No. Bloody or black stools: No. Bowel changes: No. Anxiety neurosis Adjustment disorder with depressed mood Current medications: Citalopram 40mg daily Clonezepam 0.5mg 1/2 tab twice daily and wean by 1/2 tab twice a week Takes Benadryl at night to sleep Has done well with slow taper HISTORIES FAMILY HISTORY Problem Relation Age of Onset Diabetes Father Cervical Cancer Paternal Grandmother Stroke Paternal Grandfather Psychiatry Mother Heart Father Hypertension Father PAST MEDICAL HISTORY Diagnosis Date Abnormal CT of the abdomen 10/10/2015 10/16/09 inflammation cecum and ascending colon consistent with infectious colitis, possibly Chrohn's 07/05/10 soft tissue mass encasing the aorta, iliac and mid distal left ureter suggesting recto- peritoneal fibrosis with obstructive uropathy on left. 05/28/15: mild dilatation intrahepatic biliary ductal system, status post cholecystectomy, common bile duct it at the ampulla level at 1.1 cm, mild splenomegaly, large hiatal hernia, sigmoid diverticulosis with possible stranding indicating diverticulitis, calcified aortic plaques, subcentimeter cyst Lower pole of the right kidney, bulky uterus with leiomyomatous appearance. 07/31/15: CT was similar findings with rectosigmoid junctional narrowing again noted 09/16/15 cortical atrophy noted in the left kidney in addition to continued rectosigmoid junctional narrowing with recommendation for colonoscopy 11/06/15 CT of abdomen was considered normal with exception of leiomyomatous uterus. 06/07/17 umbilical hernia with fat, atrophy of left kidney, borderline spleen, Acute unilateral obstructive uropathy 08/07/2010 Adjustment disorder with depressed mood 12/01/2007 September 06, 2017 Treated in the past with Ativan, Klonopin both with improvement over many years. Previous trials with amitriptyline, buspirone, bupropion, paroxetine were unhelpful. Anxiety 08/07/2010 Atrophy of left kidney 01/19/2018 01/17/18 CT abdomen severe chronic left renal atrophy with moderate right hydronephrosis, proximal ureter dilated Chronic progressive renal failure, stage 3 (moderate) (HCC) 09/06/2017 RENAL FLOWSHEET Latest Ref Rng AND Units 07/28/2012 06/04/2015 03/31/2017 CREATININE 0.58 - 0.96 mg/dL 0.93 1.00 1.52 (H) 07/05/10 CT retroperitoneal fibrosis with obstructive uropathy left kidny 09/16/15 CT demonstrated cortical atrophy l kidney COPD (chronic obstructive pulmonary disease) with chronic bronchitis (HCC) 11/12/2011 Diverticulitis of large intestine without perforation or abscess without bleeding 10/10/2015 CT abd/ pel 05/28/15 treated in ED [facility]. Has f/u with Dr. Arthur for EGD and colonoscopy but cancelled and did not follow up. Diverticulitis of sigmoid colon 2015 Dysentery Esophageal reflux 12/22/2006 Controlled on o (more content not included)... [facility] 07-30-2022 History of Presen t illness Narrative 61 year old female with c/o 6 month follow up. 07/13/2022 in [facility] for diarrhea. Negative stool culture, negative C. Diff. Lasted about 3 weeks. Aortic stenosis, mild Stable. Has occasional palpitations. 12/19/2021 echo: - Technically difficult exam due to body habitus. - Exam indication: Palpitations - The left ventricle is small. Left ventricular systolic function is normal. EF = 57 5% (2D biplane) Grade I left ventricular diastolic dysfunction. - The right ventricle is normal in size. Right ventricular systolic function is normal. - There are no significant valvular abnormalities. - The patient has not had a prior echocardiographic exam for comparison. 09/16/2021 Mild scattered aortoiliac atherosclerotic calcifications with diffuse thickening of the wall of the abdominal aorta and proximal common iliac arteries concerning for arteritis such as giant cell arteritis.Consult to vascular surgery placed. Chronic progressive renal failure, stage 3 (moderate) (hcc) Atrophy of left kidney 06/22/22/ in [facility] ER left flank pain with stable VS, UA +5-10 WBCs treated with Bactrim. CT abd/pel: moderate cortical atrophy left kidney consistent with medical renal disease, small hiatal hernia, calcification abdominal aorta without aneursym Rls (restless legs syndrome) Legs shake every night Feels like things are crawling on leg. Walks a lot during the day tries Myofascial pain Chronic aches persistent Tired a lot. Hasn't done well with medication trials. Vitamin b12 deficiency Iron deficiency anemia due to chronic blood loss Current medications: Ferrous gluconate 324mg daily with breakfast. Cyanocobalamin 1000mcg daily Need updated lab Gastroesophageal reflux disease, unspecified whether esophagitis present Current medication: Omeprazole OTC 20mg daily AC. Current symptoms: not unless eats spicy, spaghetti. Last Mg level if on PPI chronically: due. Heartburn is controlled: No. Dysphagia: No. Bloody or black stools: No. Bowel changes: No. Anxiety neurosis Adjustment disorder with depressed mood Current medications: Citalopram 40mg daily Clonezepam 0.5mg 1/2 tab twice daily and wean by 1/2 tab twice a week Takes Benadryl at night to sleep Has done well with slow taper HISTORIES FAMILY HISTORY Problem Relation Age of Onset Diabetes Father Cervical Cancer Paternal Grandmother Stroke Paternal Grandfather Psychiatry Mother Heart Father Hypertension Father PAST MEDICAL HISTORY Diagnosis Date Abnormal CT of the abdomen 10/10/2015 10/16/09 inflammation cecum and ascending colon consistent with infectious colitis, possibly Chrohn's 07/05/10 soft tissue mass encasing the aorta, iliac and mid distal left ureter suggesting recto- peritoneal fibrosis with obstructive uropathy on left. 05/28/15: mild dilatation intrahepatic biliary ductal system, status post cholecystectomy, common bile duct it at the ampulla level at 1.1 cm, mild splenomegaly, large hiatal hernia, sigmoid diverticulosis with possible stranding indicating diverticulitis, calcified aortic plaques, subcentimeter cyst Lower pole of the right kidney, bulky uterus with leiomyomatous appearance. 07/31/15: CT was similar findings with rectosigmoid junctional narrowing again noted 09/16/15 cortical atrophy noted in the left kidney in addition to continued rectosigmoid junctional narrowing with recommendation for colonoscopy 11/06/15 CT of abdomen was considered normal with exception of leiomyomatous uterus. 06/07/17 umbilical hernia with fat, atrophy of left kidney, borderline spleen, Acute unilateral obstructive uropathy 08/07/2010 Adjustment disorder with depressed mood 12/01/2007 September 06, 2017 Treated in the past with Ativan, Klonopin both with improvement over many years. Previous trials with amitriptyline, buspirone, bupropion, paroxetine were unhelpful. Anxiety 08/07/2010 Atrophy of left kidney 01/19/2018 01/17/18 CT abdomen severe chronic left renal atrophy with moderate right hydronephrosis, proximal ureter dilated Chronic progressive renal failure, stage 3 (moderate) (HCC) 09/06/2017 RENAL FLOWSHEET Latest Ref Rng & Units 07/28/2012 06/04/2015 03/31/2017 CREATININE 0.58 - 0.96 mg/dL 0.93 1.00 1.52 (H) 07/05/10 CT retroperitoneal fibrosis with obstructive uropathy left kidny 09/16/15 CT demonstrated cortical atrophy l kidney COPD (chronic obstructive pulmonary disease) with chronic bronchitis (HCC) 11/12/2011 Diverticulitis of large intestine without perforation or abscess without bleeding 10/10/2015 CT abd/ pel 05/28/15 treated in ED [facility]. Has f/u with Dr. Arthur for EGD and colonoscopy but cancelled and did not follow up. Diverticulitis of sigmoid colon 2015 Dysentery Esophageal reflux 12/22/2006 Controlled on omeprazole with minimal breakthrough. 2015 failed to complete scheduled EGD. + H. Pylori testing. 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 Tobacco abuse disorder stopped smoking PAST SURGICAL HISTORY Procedure Laterality Date CHOLECYSTECTOMY 1995 Cholecystectomy Social History Tobacco Use Smoking status: Former Years: 25.00 Types: Cigarettes Quit date: 06/27/2014 Years since quittin.0 Smokeless tobacco: Never Substance Use Topics Alcohol use: No Drug use: No ACTIVE PROBLEM LIST Positive Helicobacter Pylori Test Esophageal Reflux Adjustment Disorder With Depressed Mood Retroperitoneal Fibrosis Iron Deficiency Anemia Neck Pain, Chronic Myofascial Pain Anxiety Neurosis Abnormal CT of The Abdomen Diverticulitis of Large Intestine Without Perforation Or Abscess Without Bleeding Chronic Progressive Renal Failure, Stage 3 (Moderate) (Hcc) Rls (Restless Legs Syndrome) Atrophy of Left Kidney Aortic Disorder (Hcc) Palpitations Current Outpatient Medications Medication Sig Dispense Refill citalopram (CELEXA) 40 mg tablet Take 1 tablet by mouth once daily. 30 tablet 11 clonazePAM (KLONOPIN) 0.5 mg tablet Take 0.5 tablets by mouth twice daily for 90 days. Try to wean by 1/2 Dose a few times a week. 60 tablet 0 Omeprazole Magnesium (PRILOSEC OTC) 20 mg tablet Take 1 tablet by mouth twice daily. 60 tablet 5 ferrous gluconate 324 mg (37.5 mg iron) tablet Take 1 tablet by mouth daily with breakfast. 30 tablet 5 cyanocobalamin (VITAMIN B-12) 1,000 mcg tab Take 1 tablet by mouth once daily. 90 tablet 3 Current Facility-Administered Medications Medication Dose Route Frequency Provider Last Rate Last Admin perflutren lipid microspheres 1.3 mL in NaCl (PF) 0.9% 10 mL injection (DEFINITY) INTRAVENOUS DIRECTED PRN Carol Gonzalez PA-C sodium chloride 0.9 % (flush) 10 mL (BD POSIFLUSH) 10 mL INTRAVENOUS DIRECTED PRN Carol Gonzalez PA-C cyanocobalamin 1,000 mcg injection 1,000 mcg SUBCUTANEOUS 1/WK Jean Ramos MD 1,000 mcg at 11/18/20 1332 PAP TESTING due on 02/18/2015 HPV TESTING due on 02/18/2015 MAMMOGRAM due on 08/19/2016 COLORECTAL CANCER SCREENING due on 08/19/2016 COVID-19 VACCINE(3 - Booster for Pfizer series) due on 08/29/2020 SHINGRIX VACCINE(2 of 2) due on 02/17/2021 DIABETES SCREEN due on 05/25/2021 SERUM CREATININE due on 10/02/2021 HEMOGLOBIN/HEMATOCRIT due on 10/02/2021 DEPRESSION ASSESSMENT Never done LIPID SCREEN due on 03/31/2022 EXAM: BP 124/76 Pulse 82 Resp 16 Wt 72.1 kg (159 lb) LMP 09/13/2006 SpO2 96% BMI 25.92 kg/m Pleasant mature adult woman in no acute distress. Alert and oriented all spheres. Normal affect and cognition. Speech normal. No deficits to learning or comprehension. Skin warm, dry, pink to lips and nailbeds. Normal turgor. Respirations regular and unlabored. Chest is normal shape. Lungs are clear to all patel with good air exchange through out. HRRR without murmur or gallop. No lifts, heaves, or rubs. Chest is normal shape. Lungs are clear to all patel with good air exchange through out. HRRR without murmur or gallop. No lifts, heaves, or rubs. Extrem: no clubbing or cyanosis. Edema: none. Extremities are warm and pink with prompt capillary refill. Neuro: not shaking today as sometimes does. Slight intention tremor noted. ASSESSMENT/PLAN: 1. Hyperlipidemia, mixed - ICD9: 272.2, ICD10: E78.2 (primary diagnosis) - suboptimal control - Encouraged following a low fat, low cholesterol diet. - Discussed the benefits of regular aerobic exercise and weight loss. - Encouraged following a low carbohydrate, healthy oil intake diet. - LIPID PANEL BASIC - COMP METABOLIC PANEL 2. Aortic stenosis, mild - ICD9: 424.1, ICD10: I35.0 Not present on most recent echo, BP controlled - LIPID PANEL BASIC 3. Chronic progressive renal failure, stage 3 (moderate) (HCC) - ICD9: 585.3, ICD10: N18.30 - eGFR: Stable - Counseled on avoiding regular use of NSAIDs, adequate hydration, potential risk of IV dye - CBC + DIFF - COMP METABOLIC PANEL 4. Atrophy of left kidney - ICD9: 587, ICD10: N26.1 Tight BP control, monitor periodic urine protein - CBC + DIFF - COMP METABOLIC PANEL 5. RLS (restless legs syndrome) - ICD9: 333.94, ICD10: G25.81 Persistent despite treatment - CBC + DIFF - IRON + TIBC 6. Myofascial pain - ICD9: 729.1, ICD10: M79.18 Chronic despite treatment 7. Vitamin B12 deficiency - ICD9: 266.2, ICD10: E53.8 - CBC + DIFF - COMP METABOLIC PANEL - VITAMIN B12 BLOOD - FOLATE SERUM 8. Iron deficiency anemia due to chronic blood loss - ICD9: 280.0, ICD10: D50.0 - CBC + DIFF - COMP METABOLIC PANEL - IRON + TIBC 9. Gastroesophageal reflux disease, unspecified whether esophagitis present - ICD9: 530.81, ICD10: K21.9 - Discussed lifestyle modifications including losing weight, limiting caffeine, no meals three hours before sleep, and head of bed elevation - OMEPRAZOLE MAGNESIUM 20 MG TABLET,DELAYED RELEASE - CBC + DIFF - COMP METABOLIC PANEL 10. 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 - CLONAZEPAM 0.5 MG TABLET - CBC + DIFF - COMP METABOLIC PANEL 11. Adjustment disorder with depressed mood - ICD9: 309.0, ICD10: F43.21 Stable, managing herself well. - CBC + DIFF - COMP METABOLIC PANEL 12. Current use of proton pump inhibitor - ICD9: V58.69, ICD10: Z79.899 - MAGNESIUM BLD 13. Screening for cervical cancer - ICD9: V76.2, ICD10: Z12.4 - CONSULT TO GYNECOLOGY 14. Screening for colorectal cancer - ICD9: V76.51, V76.41, ICD10: Z12.11, Z12.12 - COLOGUARD Carol Gonzalez PA-C documented in this encounter [facility] 07-13-2022 Note HNO ID: [id number] Author: NOLAN Joya Service: ? Author Type: Physician Site Administrator Type: Progress Notes Filed: 07/13/2022 4:54 PM Note Text: This note was created using [employer]. Subjective Kyler Barnhart is a 61 year old female. HPI 61-year-old female presents for diarrhea, abdominal cramping and bloating. Patient states that she started getting diarrhea about 3 to 4 days ago. She had about 6 episodes of diarrhea today. Diarrhea is watery. She states it is nonbloody. She denies any vomiting, but has had some nausea. She denies any abdominal pain, but does state that she has some cramping before having the diarrhea. She recently was on an antibiotic for UTI-Bactrim. States she has a few doses left, so is unsure if it is a side effect from the medication or not. She has not had any fevers. She states her urinary symptoms have resolved. She denies any hematuria. PAST MEDICAL HISTORY Diagnosis Date Abnormal CT of the abdomen 10/10/2015 10/16/09 inflammation cecum and ascending colon consistent with infectious colitis, possibly Chrohn's 07/05/10 soft tissue mass encasing the aorta, iliac and mid distal left ureter suggesting recto- peritoneal fibrosis with obstructive uropathy on left. 05/28/15: mild dilatation intrahepatic biliary ductal system, status post cholecystectomy, common bile duct it at the ampulla level at 1.1 cm, mild splenomegaly, large hiatal hernia, sigmoid diverticulosis with possible stranding indicating diverticulitis, calcified aortic plaques, subcentimeter cyst Lower pole of the right kidney, bulky uterus with leiomyomatous appearance. 07/31/15: CT was similar findings with rectosigmoid junctional narrowing again noted 09/16/15 cortical atrophy noted in the left kidney in addition to continued rectosigmoid junctional narrowing with recommendation for colonoscopy 11/06/15 CT of abdomen was considered normal with exception of leiomyomatous uterus. 06/07/17 umbilical hernia with fat, atrophy of left kidney, borderline spleen, Acute unilateral obstructive uropathy 08/07/2010 Adjustment disorder with depressed mood 12/01/2007 September 06, 2017 Treated in the past with Ativan, Klonopin both with improvement over many years. Previous trials with amitriptyline, buspirone, bupropion, paroxetine were unhelpful. Anxiety 08/07/2010 Atrophy of left kidney 01/19/2018 01/17/18 CT abdomen severe chronic left renal atrophy with moderate right hydronephrosis, proximal ureter dilated Chronic progressive renal failure, stage 3 (moderate) ([facility]) 09/06/2017 RENAL FLOWSHEET Latest Ref Rng AND Units 07/28/2012 06/04/2015 03/31/2017 CREATININE 0.58 - 0.96 mg/dL 0.93 1.00 1.52 (H) 07/05/10 CT retroperitoneal fibrosis with obstructive uropathy left kidny 09/16/15 CT demonstrated cortical atrophy l kidney COPD (chronic obstructive pulmonary disease) with chronic bronchitis (HCC) 11/12/2011 Diverticulitis of large intestine without perforation or abscess without bleeding 10/10/2015 CT abd/ pel 05/28/15 treated in ED [facility]. Has f/u with Dr. Arthur for EGD and colonoscopy but cancelled and did not follow up. Diverticulitis of sigmoid colon 2015 Dysentery Esophageal reflux 12/22/2006 Controlled on omeprazole with minimal breakthrough. 2015 failed to complete scheduled EGD. + H. Pylori testing. 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 Tobacco abuse disorder stopped smoking PAST SURGICAL HISTORY Procedure Laterality Date CHOLECYSTECTOMY 1995 Cholecystectomy ALLERGIES Oxycodone, Amitriptyline, Augmentin [Amoxicillin-Pot Clavulanate], Codeine, Doxycycline, Egg, Lodine Xl [Etodolac], Prednisone, Prevacid [Lansoprazole], and Prozac [Fluoxetine Hcl] MEDICATIONS citalopram (CELEXA) 40 mg tabletTake 1 tablet by mouth once daily.Disp: 30 tabletRfl: 11 clonazePAM (KLONOPIN) 0.5 mg tabletTake 0.5 tablets by mouth twice daily for 90 days. Try to wean by 1/2 Dose a few times a week.Disp: 60 tabletRfl: 0 Omeprazole Magnesium (PRILOSEC OTC) 20 mg tabletTake 1 tablet by mouth twice daily.Disp: 60 tabletRfl: 5 ferrous gluconate 324 mg (37.5 mg iron) tabletTake 1 tablet by mouth daily with breakfast.Disp: 30 tabletRfl: 5 cyanocobalamin (VITAMIN B-12) 1,000 mcg tabTake 1 tablet by mouth once daily.Disp: 90 tabletRfl: 3 FAMILY HISTORY Problem Relation Age of Onset Diabetes Father Cervical Cancer Paternal Grandmother Stroke Paternal Grandfather Psychiatry Mother Heart Father Hypertension Father Social History Tobacco Use Smoking status: Former Years: 25.00 Types: Cigarettes Quit date: 06/27/2014 Years since quittin.0 Smokeless tobacco: Never Substance Use Topics Alcohol use: No Drug use: No Review of Systems Constitutional: Negative for chills and fever. HENT: Negative for congestion, ear pain and sore throat. (more content not included)... [facility] 07-13-2022 History of Presen t illness Narrative This note was created using [employer]. Subjective Kyler Barnhart is a 61 year old female. HPI 61-year-old female presents for diarrhea, abdominal cramping and bloating. Patient states that she started getting diarrhea about 3 to 4 days ago. She had about 6 episodes of diarrhea today. Diarrhea is watery. She states it is nonbloody. She denies any vomiting, but has had some nausea. She denies any abdominal pain, but does state that she has some cramping before having the diarrhea. She recently was on an antibiotic for UTI-Bactrim. States she has a few doses left, so is unsure if it is a side effect from the medication or not. She has not had any fevers. She states her urinary symptoms have resolved. She denies any hematuria. PAST MEDICAL HISTORY Diagnosis Date Abnormal CT of the abdomen 10/10/2015 10/16/09 inflammation cecum and ascending colon consistent with infectious colitis, possibly Chrohn's 07/05/10 soft tissue mass encasing the aorta, iliac and mid distal left ureter suggesting recto- peritoneal fibrosis with obstructive uropathy on left. 05/28/15: mild dilatation intrahepatic biliary ductal system, status post cholecystectomy, common bile duct it at the ampulla level at 1.1 cm, mild splenomegaly, large hiatal hernia, sigmoid diverticulosis with possible stranding indicating diverticulitis, calcified aortic plaques, subcentimeter cyst Lower pole of the right kidney, bulky uterus with leiomyomatous appearance. 07/31/15: CT was similar findings with rectosigmoid junctional narrowing again noted 09/16/15 cortical atrophy noted in the left kidney in addition to continued rectosigmoid junctional narrowing with recommendation for colonoscopy 11/06/15 CT of abdomen was considered normal with exception of leiomyomatous uterus. 06/07/17 umbilical hernia with fat, atrophy of left kidney, borderline spleen, Acute unilateral obstructive uropathy 08/07/2010 Adjustment disorder with depressed mood 12/01/2007 September 06, 2017 Treated in the past with Ativan, Klonopin both with improvement over many years. Previous trials with amitriptyline, buspirone, bupropion, paroxetine were unhelpful. Anxiety 08/07/2010 Atrophy of left kidney 01/19/2018 01/17/18 CT abdomen severe chronic left renal atrophy with moderate right hydronephrosis, proximal ureter dilated Chronic progressive renal failure, stage 3 (moderate) (HCC) 09/06/2017 RENAL FLOWSHEET Latest Ref Rng & Units 07/28/2012 06/04/2015 03/31/2017 CREATININE 0.58 - 0.96 mg/dL 0.93 1.00 1.52 (H) 07/05/10 CT retroperitoneal fibrosis with obstructive uropathy left kidny 09/16/15 CT demonstrated cortical atrophy l kidney COPD (chronic obstructive pulmonary disease) with chronic bronchitis (HCC) 11/12/2011 Diverticulitis of large intestine without perforation or abscess without bleeding 10/10/2015 CT abd/ pel 05/28/15 treated in ED [facility]. Has f/u with Dr. Arthur for EGD and colonoscopy but cancelled and did not follow up. Diverticulitis of sigmoid colon 2016 Dysentery Esophageal reflux 12/22/2006 Controlled on omeprazole with minimal breakthrough. 2015 failed to complete scheduled EGD. + H. Pylori testing. 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 Tobacco abuse disorder stopped smoking PAST SURGICAL HISTORY Procedure Laterality Date CHOLECYSTECTOMY 1995 Cholecystectomy ALLERGIES Oxycodone, Amitriptyline, Augmentin [Amoxicillin-Pot Clavulanate], Codeine, Doxycycline, Egg, Lodine Xl [Etodolac], Prednisone, Prevacid [Lansoprazole], and Prozac [Fluoxetine Hcl] MEDICATIONS citalopram (CELEXA) 40 mg tablet^Take 1 tablet by mouth once daily.^Disp: 30 tablet^Rfl: 11 clonazePAM (KLONOPIN) 0.5 mg tablet^Take 0.5 tablets by mouth twice daily for 90 days. Try to wean by 1/2 Dose a few times a week.^Disp: 60 tablet^Rfl: 0 Omeprazole Magnesium (PRILOSEC OTC) 20 mg tablet^Take 1 tablet by mouth twice daily.^Disp: 60 tablet^Rfl: 5 ferrous gluconate 324 mg (37.5 mg iron) tablet^Take 1 tablet by mouth daily with breakfast.^Disp: 30 tablet^Rfl: 5 cyanocobalamin (VITAMIN B-12) 1,000 mcg tab^Take 1 tablet by mouth once daily.^Disp: 90 tablet^Rfl: 3 FAMILY HISTORY Problem Relation Age of Onset Diabetes Father Cervical Cancer Paternal Grandmother Stroke Paternal Grandfather Psychiatry Mother Heart Father Hypertension Father Social History Tobacco Use Smoking status: Former Years: 25.00 Types: Cigarettes Quit date: 06/27/2014 Years since quittin.0 Smokeless tobacco: Never Substance Use Topics Alcohol use: No Drug use: No Review of Systems Constitutional: Negative for chills and fever. HENT: Negative for congestion, ear pain and sore throat. Respiratory: Negative for cough and shortness of breath. Cardiovascular: Negative for chest pain. Gastrointestinal: Positive for diarrhea and nausea. Negative for abdominal pain, blood in stool and vomiting. Objective BP 122/72 Pulse 86 Temp 36.7 C (98.1 F) Resp 16 Wt 73.5 kg (162 lb) LMP 09/13/2006 SpO2 99% BMI 26.41 kg/m Physical Exam Vitals and nursing note reviewed. Constitutional: General: She is not in acute distress. Appearance: Normal appearance. She is not toxic-appearing. HENT: Right Ear: Tympanic membrane and ear canal normal. Left Ear: Tympanic membrane and ear canal normal. Nose: Nose normal. Mouth/Throat: Mouth: Mucous membranes are moist. Pharynx: No oropharyngeal exudate or posterior oropharyngeal erythema. Eyes: Conjunctiva/sclera: Conjunctivae normal. Cardiovascular: Rate and Rhythm: Normal rate and regular rhythm. Pulmonary: Effort: Pulmonary effort is normal. Breath sounds: Normal breath sounds. Abdominal: General: Abdomen is flat. Palpations: Abdomen is soft. Tenderness: There is no abdominal tenderness. Neurological: Mental Status: She is alert. Assessment and Plan ASSESSMENT/PLAN: 1. Diarrhea, unspecified type - ICD9: 787.91, ICD10: R19.7 -Recent antibiotic use. We will get stool cultures. -Recommend brat diet, gentle hydration. - OVA + PARA MICROSCOPIC - ENTERIC BACTERIAL PANEL BY PCR - C. DIFFICILE PCR Diagnosis and treatment plan were discussed and questions were answered to the patient's satisfaction. Pt acknowledged understanding of concepts and follow up plan. Specific signs and symptoms that would indicate the need for higher level of care were discussed in detail warranting prompt ER evaluation. NOLAN Joya documented in this encounter [facility] 07-04-2022 Miscellaneous Notes 1st attempt to reach patient. Left message for patient to call office to schedule follow up per PCP. Sent to provider for refill. Pt needs to set up office visit for follow up exam. Please set up. Patient is calling in stating she only has 1 pill left if this can please be sent today if possible. Thank you. Patient has been identified by name and date of : Yes Requested Prescriptions Pending Prescriptions Disp Refills citalopram (CELEXA) 40 mg tablet 30 tablet 11 Sig: Take 1 tablet by mouth once daily. RX INSTRUCTIONS: Patient requesting a call when RX is approved and sent to the pharmacy. Please call patient at: [phone]. Elle Sterling Pss documented in this encounter [facility] 05-13-2022 Note Patient Outreach (IN [facility]) KYLER BARNHART ([id number]) 1960 F Date Time Provider Department 05/13/22 Carol GONZALEZ During your visit today, we recorded the following information about you: Allergies As of Date: 05/13/2022 Noted Allergy Reaction OXYCODONE 08/07/2010 11 - Vomiting AMITRIPTYLINE 07/25/2012 14 - Other: See Comments Comments: Caused palpatations AUGMENTIN (AMOXICILLIN-POT CLAVUL*05/31/2009 8 - GI Upset 11 - Vomiting CODEINE 04/01/2005 8 - GI Upset DOXYCYCLINE 04/11/2005 EGG 03/27/2013 8 - GI Upset LODINE XL (ETODOLAC) 04/11/2005 PREDNISONE 06/09/2007 1 - Mental Status Change PREVACID (LANSOPRAZOLE) 04/11/2005 PROZAC (FLUOXETINE HCL) 04/11/2005 Date Reviewed: 03/27/2022 Reviewed by: Liilana Brown MA - Fully Assessed Visit Diagnosis:Encounter for screening mammogram for breast cancer [Z12.31] Order(s):[facility] SCREENING [[id number]] Order #: [id number] FUTURE Prescriptions as of 05/18/2022 - clonazePAM (KLONOPIN) 0.5 mg tablet Take 0.5 tablets by mouth twice daily for 90 days. Try to wean by 1/2 Dose a few times a week. - Omeprazole Magnesium (PRILOSEC OTC) 20 mg tablet Take 1 tablet by mouth twice daily. - citalopram (CELEXA) 40 mg tablet Take 1 tablet by mouth once daily. - ferrous gluconate 324 mg (37.5 mg iron) tablet Take 1 tablet by mouth daily with breakfast. - cyanocobalamin (VITAMIN B-12) 1,000 mcg tab Take 1 tablet by mouth once daily. Facility-Administered Medications as of 05/18/2022 - perflutren lipid microspheres 1.3 mL in NaCl (PF) 0.9% 10 mL injection (DEFINITY) - sodium chloride 0.9 % (flush) 10 mL (BD POSIFLUSH) - cyanocobalamin 1,000 mcg injection Meds Comments as of 01/22/2017: 01/22/17 Takes Celexa and Prilosec. Out of Clonazepam. Negrita Cheek RN Problem List As Of Date 05/13/2022 Noted Resolved Positive Helicobacter pylori test [A04.8] Esophageal reflux [K21.9] 12/22/2006 Tobacco use disorder [F17.200] 06/09/2007 09/06/2017 Adjustment disorder with depressed mood [F43.21]12/01/2007 Shortness of breath [R06.02] 12/26/2007 09/06/2017 Colitis [K52.9] 10/31/2009 09/06/2017 Anxiety [F41.9] 08/07/2010 09/06/2017 Retroperitoneal fibrosis [N13.5] 08/07/2010 Acute unilateral obstructive uropathy [N13.9] 08/07/2010 09/06/2017 COPD (chronic obstructive pulmonary disease) wi*11/12/2011 08/22/2014 Acne [L70.9] 12/03/2011 09/06/2017 Iron deficiency anemia [D50.9] 07/29/2012 Neck pain, chronic [M54.2, G89.29] 01/18/2013 Myofascial pain [M79.18] 10/16/2013 Irritable bowel syndrome with diarrhea [K58.0] 09/19/2015 09/06/2017 Anxiety neurosis [F41.1] 09/19/[address] of the abdomen [R93.5] 10/10/2015 Diverticulitis of large intestine without perfo*10/10/2015 LLQ pain [R10.32] 10/10/2015 09/06/2017 Chronic progressive renal failure, stage 3 (mod*09/06/2017 RLS (restless legs syndrome) [G25.81] 09/06/2017 Atrophy of left kidney [N26.1] 01/19/2018 Aortic disorder (HCC) [I77.9] 05/10/2021 Palpitations [R00.2] 11/27/2021 Encounter Status:Closed by [email or web address], PRODUSER on 05/18/22 [facility] 03-31-2022 Miscellaneous Notes Patient given results and verbalized understanding of instructions given. Gloria Aguilar Left message for patient to return call. Gloria Aguilar Please call and let patient know her urine culture showed the bacteria is resistant to the keflex she is on. Bactrim was sent in. She should stop keflex and start bactrim. documented in this encounter [facility] 03-27-2022 History of Presen t illness Narrative Subjective HPI HPI Kyler Barnhart is a 61 year old female who presents today for CC of suprapubic pain, dysuria, urinary frequency and urgency x 3 days. +Nausea, chills. No fevers to her knowledge. No flank pain. Has a hx of recurrent UTIs. BP 130/86 Pulse 106 Temp 36.9 C (98.5 F) Resp 18 Wt 72.3 kg (159 lb 6.4 oz) LMP 10/10/2006 SpO2 97% BMI 25.99 kg/m ALLERGIES Allergen Reactions Oxycodone Vomiting Amitriptyline Other: See Comments Caused palpatations Augmentin [Amoxicil* GI Upset, Vomiting Codeine GI Upset Doxycycline Egg GI Upset Lodine Xl [Etodolac] Prednisone Mental Status Change Prevacid [Lansopraz* Prozac [Fluoxetine * ACTIVE PROBLEM LIST Positive Helicobacter Pylori Test Esophageal Reflux Adjustment Disorder With Depressed Mood Retroperitoneal Fibrosis Iron Deficiency Anemia Neck Pain, Chronic Myofascial Pain Anxiety Neurosis Abnormal CT of The Abdomen Diverticulitis of Large Intestine Without Perforation Or Abscess Without Bleeding Chronic Progressive Renal Failure, Stage 3 (Moderate) (Hcc) Rls (Restless Legs Syndrome) Atrophy of Left Kidney Aortic Disorder (Hcc) Palpitations Family History Problem Relation Age of Onset Diabetes Father Cervical Cancer Paternal Grandmother Stroke Paternal Grandfather Psychiatry Mother Heart Father Hypertension Father Social History Tobacco Use Smoking status: Former Years: 25.00 Types: Cigarettes Quit date: 06/27/2014 Years since quittin.7 Smokeless tobacco: Never Substance Use Topics Alcohol use: No Drug use: No Review of Systems Constitutional: Negative for chills and fever. Gastrointestinal: Positive for nausea. Negative for abdominal pain, constipation, diarrhea and vomiting. Genitourinary: Positive for dysuria, frequency and urgency. Negative for flank pain and hematuria. Objective BP 130/86 Pulse 106 Temp 36.9 C (98.5 F) Resp 18 Wt 72.3 kg (159 lb 6.4 oz) LMP 10/10/2006 SpO2 97% BMI 25.99 kg/m Physical Exam Constitutional: General: She is not in acute distress. Appearance: Normal appearance. She is not ill-appearing. Cardiovascular: Rate and Rhythm: Normal rate and regular rhythm. Heart sounds: S1 normal and S2 normal. No murmur heard. Pulmonary: Effort: Pulmonary effort is normal. Breath sounds: Normal breath sounds. No decreased breath sounds, wheezing, rhonchi or rales. Abdominal: General: Bowel sounds are normal. Palpations: Abdomen is soft. There is no hepatomegaly or splenomegaly. Tenderness: There is no abdominal tenderness. There is no right CVA tenderness, left CVA tenderness, guarding or rebound. Skin: General: Skin is warm and dry. Findings: No rash. Neurological: Mental Status: She is alert and oriented to person, place, and time. Psychiatric: Behavior: Behavior is cooperative. ASSESSMENT/PLAN: 1. Urinary frequency - ICD9: 788.41, ICD10: R35.0 recurrent - UA positive for keshawn esterase, hematuria, and nitrates - Send urine for culture - Begin treatment with Keflex for 7 days, will adjust treatment as necessary pending results - UA DIP, URINE (POC) - URINE CULTURE - CEPHALEXIN 500 MG CAPSULE Pt advised to see PCP if symptoms persist or progress. Reviewed red flags with patient and when to seek care sooner. The patient indicates understanding of these issues and agrees with the plan. Gena Hutchinson PA-C documented in this encounter [facility] 02-03-2022 Miscellaneous Notes Patient given results and verbalized understanding of instructions given. Gloria Aguilar Negative for flu and COVID please notify thank you documented in this encounter [facility] 02-02-2022 History of Presen t illness Narrative Patient presents with: Sore Throat: Cough, chest congestion, mouth feels inflamed, chills, body aches x 2 days HPI: Feeling sick for 2 days. Positive symptoms: Cough, Chest tightness, bad Sore throat, Chills, Body Aches, mouth burning, Nasal Congestion, Nausea, Negative symptoms: Vomiting, Diarrhea, OTC: Ibuprofen Home COVID test negative. PAST MEDICAL HISTORY Diagnosis Date Abnormal CT of the abdomen 10/10/2015 10/16/09 inflammation cecum and ascending colon consistent with infectious colitis, possibly Chrohn's 07/05/10 soft tissue mass encasing the aorta, iliac and mid distal left ureter suggesting recto- peritoneal fibrosis with obstructive uropathy on left. 05/28/15: mild dilatation intrahepatic biliary ductal system, status post cholecystectomy, common bile duct it at the ampulla level at 1.1 cm, mild splenomegaly, large hiatal hernia, sigmoid diverticulosis with possible stranding indicating diverticulitis, calcified aortic plaques, subcentimeter cyst Lower pole of the right kidney, bulky uterus with leiomyomatous appearance. 07/31/15: CT was similar findings with rectosigmoid junctional narrowing again noted 09/16/15 cortical atrophy noted in the left kidney in addition to continued rectosigmoid junctional narrowing with recommendation for colonoscopy 11/06/15 CT of abdomen was considered normal with exception of leiomyomatous uterus. 06/07/17 umbilical hernia with fat, atrophy of left kidney, borderline spleen, Acute unilateral obstructive uropathy 08/07/2010 Adjustment disorder with depressed mood 12/01/2007 September 06, 2017 Treated in the past with Ativan, Klonopin both with improvement over many years. Previous trials with amitriptyline, buspirone, bupropion, paroxetine were unhelpful. Anxiety 08/07/2010 Atrophy of left kidney 01/19/2018 01/17/18 CT abdomen severe chronic left renal atrophy with moderate right hydronephrosis, proximal ureter dilated Chronic progressive renal failure, stage 3 (moderate) ([facility]) 09/06/2017 RENAL FLOWSHEET Latest Ref Rng & Units 07/28/2012 06/04/2015 03/31/2017 CREATININE 0.58 - 0.96 mg/dL 0.93 1.00 1.52 (H) 07/05/10 CT retroperitoneal fibrosis with obstructive uropathy left kidny 09/16/15 CT demonstrated cortical atrophy l kidney COPD (chronic obstructive pulmonary disease) with chronic bronchitis (HCC) 11/12/2011 Diverticulitis of large intestine without perforation or abscess without bleeding 10/10/2015 CT abd/ pel 05/28/15 treated in ED [facility]. Has f/u with Dr. Arthur for EGD and colonoscopy but cancelled and did not follow up. Diverticulitis of sigmoid colon 2015 Dysentery Esophageal reflux 12/22/2006 Controlled on omeprazole with minimal breakthrough. 2015 failed to complete scheduled EGD. + H. Pylori testing. 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 Tobacco abuse disorder stopped smoking MEDICATIONS: Current Outpatient Medications Medication Sig Omeprazole Magnesium (PRILOSEC OTC) 20 mg tablet Take 1 tablet by mouth twice daily. clonazePAM (KLONOPIN) 0.5 mg tablet Take 0.5 tablets by mouth twice daily for 90 days. Try to wean by 1/2 Dose a few times a week. citalopram (CELEXA) 40 mg tablet Take 1 tablet by mouth once daily. ferrous gluconate 324 mg (37.5 mg iron) tablet Take 1 tablet by mouth daily with breakfast. cyanocobalamin (VITAMIN B-12) 1,000 mcg tab Take 1 tablet by mouth once daily. Current Facility-Administered Medications Medication Dose Route Frequency perflutren lipid microspheres 1.3 mL in NaCl (PF) 0.9% 10 mL injection (DEFINITY) INTRAVENOUS DIRECTED PRN sodium chloride 0.9 % (flush) 10 mL (BD POSIFLUSH) 10 mL INTRAVENOUS DIRECTED PRN cyanocobalamin 1,000 mcg injection 1,000 mcg SUBCUTANEOUS 1/WK ALLERGIES: ALLERGIES Allergen Reactions Oxycodone Vomiting Amitriptyline Other: See Comments Caused palpatations Augmentin [Amoxicil* GI Upset, Vomiting Codeine GI Upset Doxycycline Egg Intolerance Lodine Xl [Etodolac] Prednisone Mental Status Change Prevacid [Lansopraz* Prozac [Fluoxetine * VITALS: BP 118/78 Pulse 90 Temp 36.8 C (98.2 F) Resp 17 Wt 72.9 kg (160 lb 12.8 oz) LMP 10/10/2006 SpO2 98% BMI 26.22 kg/m PHYSICAL EXAM: GEN: mildly ill appearing HEENT: PERRL, EOMI, conjunctiva clear Ears: canals clear. TMs without erythema, bulge, or effusion Sinuses: non-tender frontal sinus, non-tender maxillary sinuses Throat: moist mucous membranes, mild erythema of tongue, left cheek mucosa has erythema and shallow leukoplakia, no pharyngeal exudate Neck: supple, no thyromegaly, no lymphadenopathy HEART: regular rate and rhythm, no murmurs LUNGS: clear to auscultation, no wheezes or crackles, no increased WOB ASSESSMENT/PLAN: 1. Sore throat - ICD9: 462, ICD10: J02.9 - STREP A MOLECULAR (POC) - negative - suspect viral URI, differential includes COVID-19. - Discussed supportive care treatment with home isolation, rest, cold medicine, and analgesia. - Red flags to seek further treatment include chest pain, shortness of breath, and lethargy; in the ER if severe. - COVID WITH FLUA+B, ROUTINE Peter Quesada MD documented in this encounter [facility] 01-28-2022 Miscellaneous Notes Patient has been identified by name and date of : Yes RADHA 12/11/21 Last office visit in this department: 12/11/2021 RX INSTRUCTIONS: Patient aware RX will be sent to pharmacy. No need to notify patient. Patient phones requesting refills as follows: Requested Prescriptions Pending Prescriptions Disp Refills Omeprazole Magnesium (PRILOSEC OTC) 20 mg tablet 60 tablet 5 Sig: Take 1 tablet by mouth twice daily. Please review and advise. Gloria Cm Pss documented in this encounter [facility] 12-30-2021 Miscellaneous Notes Patient has been identified by name and date of : Yes Requested Prescriptions Pending Prescriptions Disp Refills clonazePAM (KLONOPIN) 0.5 mg tablet 60 tablet 2 Sig: Take 0.5 tablets by mouth twice daily for 90 days. Try to wean by 1/2 Dose a few times a week. RX INSTRUCTIONS: Patient aware RX will be sent to pharmacy. No need to notify patient. Estrella Fagan Pss documented in this encounter [facility] 12-11-2021 Instructions M Saran Gonzalez PA-C - 12/11/2021 5:20 PM EDT Chest pain: When to seek help -- If you have chest pain that is new, severe, prolonged, or if chest pain causes concern, call 911 immediately. The emergency medical services (EMS) personnel in your community are prepared to respond rapidly, and will take you to the nearest hospital. For a patient having a heart attack, every minute is important. Remember, the faster you get to a hospital, the sooner you can receive treatment. Do not drive yourself to the hospital and do not ask someone else to drive you. Calling 911 is safer than driving for two reasons: From the moment EMS personnel arrive, they can begin evaluating and treating chest pain. If you drive to the hospital, treatment cannot begin until you arrive in the emergency department. If a dangerous complication of a heart attack (eg, a serious irregular heart rhythm) occurs on the way to the hospital, EMS personnel are trained to treat the problem immediately. While waiting for the squad, rest sitting or laying down and try to remain calm. If you are not allergic: chew 4 Baby Aspirin or 2 adult aspirin. Aspirin has been shown to reduce incidence and severity with heart attacks. documented in this encounter [facility] 12-11-2021 History of Presen t illness Narrative 61 year old female with c/o here for ER follow up and to discussed heart condition. 11/22/2021 presented [facility] emergency department with complaint of dysuria, frequency, urgency, slight hematuria and some left flank pain per notes. Ongoing for 1 day. Afebrile, vital signs stable, pulse ox 96%. Was positive for left CVA tenderness. CBC demonstrated WBC of 8.0 with elevated neutrophil percent 70.8, absolute neutrophil normal at 6.3. Electrolytes demonstrated abnormalities with chloride at 110, BUN of 20, creatinine of 1.39 which is above patient's baseline. Urine showed specific gravity 1.015, urine protein 100, urine occult blood positive, nitrate positive, micro greater than 100 RBC, greater than 100 WBC, 10-25, 4+ bacteria. Patient underwent abdominal/pelvis CT which demonstrated multiple left ureteral calculi with left hydronephrosis and hydroureter. Patient was discharged with diagnosis of flank pain, UTI, left kidney stone: Discharged on Percocet 5-3 25 every 6 hours as needed #12, ondansetron 4 mg disintegrating every 8 hours #10, Bactrim DS 800-160 mg 1 tablet twice daily #20. Patient did complete medications, was given consult to Dr. Euceda [facility] which patient has not scheduled. Pain did subside, patient still notes that she has urinary frequency. No definitive stone excreted. 11/26/2021 presented to [facility] emergency department feeling of palpitations over the last 2 days radiating into her neck and down her left side, lasting approximately 1 second, no dyspnea or cough. Positive for vaping. Exam demonstrated no acute distress. Vital signs 98.3 [id number]/85-97% RA. CBC was essentially normal, chemistries normal except chloride 109, BUN 16 with creatinine 1.43, EGFR 40, glucose 109. Troponins were negative x2. Chest x-ray demonstrated hiatal hernia without acute cardiopulmonary disease or major interval change. EKG demonstrated sinus rhythm 84, no ST elevation. T wave inversions in lead III and flattening in aVF new compared to April EKG 2021. Labs were interpreted as stable by the ER physician, felt it was atypical ACS concerns: Plans were made for delta troponin. Also noted urine culture from 3 days prior visit demonstrated Proteus sensitive to Bactrim. Patient had not yet scheduled follow-up with urology. HISTORIES FAMILY HISTORY Problem Relation Age of Onset Diabetes Father Cervical Cancer Paternal Grandmother Stroke Paternal Grandfather Psychiatry Mother Heart Father Hypertension Father PAST MEDICAL HISTORY Diagnosis Date Abnormal CT of the abdomen 10/10/2015 10/16/09 inflammation cecum and ascending colon consistent with infectious colitis, possibly Chrohn's 07/05/10 soft tissue mass encasing the aorta, iliac and mid distal left ureter suggesting recto- peritoneal fibrosis with obstructive uropathy on left. 05/28/15: mild dilatation intrahepatic biliary ductal system, status post cholecystectomy, common bile duct it at the ampulla level at 1.1 cm, mild splenomegaly, large hiatal hernia, sigmoid diverticulosis with possible stranding indicating diverticulitis, calcified aortic plaques, subcentimeter cyst Lower pole of the right kidney, bulky uterus with leiomyomatous appearance. 07/31/15: CT was similar findings with rectosigmoid junctional narrowing again noted 09/16/15 cortical atrophy noted in the left kidney in addition to continued rectosigmoid junctional narrowing with recommendation for colonoscopy 11/06/15 CT of abdomen was considered normal with exception of leiomyomatous uterus. 06/07/17 umbilical hernia with fat, atrophy of left kidney, borderline spleen, Acute unilateral obstructive uropathy 08/07/2010 Adjustment disorder with depressed mood 12/01/2007 September 06, 2017 Treated in the past with Ativan, Klonopin both with improvement over many years. Previous trials with amitriptyline, buspirone, bupropion, paroxetine were unhelpful. Anxiety 08/07/2010 Atrophy of left kidney 01/19/2018 01/17/18 CT abdomen severe chronic left renal atrophy with moderate right hydronephrosis, proximal ureter dilated Chronic progressive renal failure, stage 3 (moderate) (HCC) 09/06/2017 RENAL FLOWSHEET Latest Ref Rng & Units 07/28/2012 06/04/2015 03/31/2017 CREATININE 0.58 - 0.96 mg/dL 0.93 1.00 1.52 (H) 07/05/10 CT retroperitoneal fibrosis with obstructive uropathy left kidny 09/16/15 CT demonstrated cortical atrophy l kidney COPD (chronic obstructive pulmonary disease) with chronic bronchitis (HCC) 11/12/2011 Diverticulitis of large intestine without perforation or abscess without bleeding 10/10/2015 CT abd/ pel 05/28/15 treated in ED [facility]. Has f/u with Dr. Arthur for EGD and colonoscopy but cancelled and did not follow up. Diverticulitis of sigmoid colon 2015 Dysentery Esophageal reflux 12/22/2006 Controlled on omeprazole with minimal breakthrough. 2015 failed to complete scheduled EGD. + H. Pylori testing. 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 Tobacco abuse disorder stopped smoking PAST SURGICAL HISTORY Procedure Laterality Date CHOLECYSTECTOMY 1995 Cholecystectomy Social History Tobacco Use Smoking status: Former Years: 25.00 Types: Cigarettes Quit date: 06/27/2014 Years since quittin.4 Smokeless tobacco: Never Substance Use Topics Alcohol use: No Drug use: No ACTIVE PROBLEM LIST Positive Helicobacter Pylori Test Esophageal Reflux Adjustment Disorder With Depressed Mood Retroperitoneal Fibrosis Iron Deficiency Anemia Neck Pain, Chronic Myofascial Pain Anxiety Neurosis Abnormal CT of The Abdomen Diverticulitis of Large Intestine Without Perforation Or Abscess Without Bleeding Chronic Progressive Renal Failure, Stage 3 (Moderate) (Hcc) Rls (Restless Legs Syndrome) Atrophy of Left Kidney Aortic Disorder ([facility]) Palpitations Current Outpatient Medications Medication Sig Dispense Refill clonazePAM (KLONOPIN) 0.5 mg tablet Take 0.5 tablets by mouth twice daily for 90 days. Try to wean by 1/2 Dose a few times a week. 60 tablet 2 citalopram (CELEXA) 40 mg tablet Take 1 tablet by mouth once daily. 30 tablet 11 ferrous gluconate 324 mg (37.5 mg iron) tablet Take 1 tablet by mouth daily with breakfast. 30 tablet 5 Omeprazole Magnesium (PRILOSEC OTC) 20 mg tablet Take 1 tablet by mouth twice daily. 60 tablet 5 cyanocobalamin (VITAMIN B-12) 1,000 mcg tab Take 1 tablet by mouth once daily. 90 tablet 3 Current Facility-Administered Medications Medication Dose Route Frequency Provider Last Rate Last Admin cyanocobalamin 1,000 mcg injection 1,000 mcg SUBCUTANEOUS 1/WK Jean Ramos MD 1,000 mcg at 11/18/20 1332 PAP TESTING due on 02/18/2015 HPV TESTING due on 02/18/2015 MAMMOGRAM due on 08/19/2016 COLORECTAL CANCER SCREENING due on 08/19/2016 COVID-19 VACCINE(3 - Booster for Pfizer series) due on 12/04/2020 SHINGRIX VACCINE(2 of 2) due on 02/17/2021 DIABETES SCREEN due on 05/25/2021 SERUM CREATININE due on 10/02/2021 HEMOGLOBIN/HEMATOCRIT due on 10/02/2021 EXAM: BP 120/72 Pulse 86 Resp 18 Wt 72.1 kg (159 lb) LMP 10/10/2006 SpO2 99% BMI 25.92 kg/m Pleasant well-appearing adult woman in no acute distress. Alert and oriented all spheres. Normal affect and cognition. Speech normal. No deficits to learning or comprehension. Skin warm, dry, pink to lips and nailbeds. Normal turgor. Respirations regular and unlabored. Head is normocephalic, atraumatic. No scleral icterus or conjunctival injection. Nose and oropharynx are free from injection or lesion, oral membranes are moist and pink. No cervical lymphadenopathy. Chest is clear to auscultation percussion, cardiac exam regular rate and rhythm without murmur or gallop, no ectopy noted. The abdomen is soft, nontender, no masses or organomegaly. No rebound or significant tenderness. No flank pain on percussion. Extremities are well formed, no evidence of pitting edema. ASSESSMENT/PLAN: 1. Precordial pain - ICD9: 786.51, ICD10: R07.2 (primary diagnosis) Atypical chest pain, recurrent palpitations, known anxiety. Patient has some mild EKG changes, I feel this warrants additional evaluation hopefully to put to rest questions as to whether there is an underlying cardiac condition which is patient's main anxiety component. Will proceed with stress test and echocardiogram. - NM CARDIAC PERF STRESS/PHARM - LEXISCAN 0.4 MG/5 ML INTRAVENOUS SYRINGE - INSERT IV ([place]) - IV DISCONTINUE - ECHO - PERFLUTREN LIPID MICROSPHERES 1.1 MG/ML INJECTION IN NS 10 ML - SODIUM CHLORIDE 0.9 % (FLUSH) INJECTION SYRINGE 2. Kidney stone - ICD9: 592.0, ICD10: N20.0 Patient has consult to Dr. Euceda [facility]: We will replace so we get records. Patient will need to schedule appointment in hospital. Not clear whether patient actually cleared the stone or not, needs reevaluation. - CONSULT TO UROLOGY 3. Hydroureter on left - ICD9: 593.5, ICD10: N13.4 4. Hydronephrosis of left kidney - ICD9: 591, ICD10: N13.30 Carol Gonzalez PA-C documented in this encounter [facility] 11-26-2021 History of Presen t illness Narrative Triage note: NICOLE Kyler Barnhart is a 60 year old female who presents today for CC of presented to express care with palpitations that are painful. States that she also fell today and hit head. She states she did not pass out LMP 10/10/2006 Social History Tobacco Use Smoking status: Former Years: 25.00 Types: Cigarettes Quit date: 06/27/2014 Years since quittin.4 Smokeless tobacco: Never Substance Use Topics Alcohol use: No Drug use: No PAST MEDICAL HISTORY Diagnosis Date Abnormal CT of the abdomen 10/10/2015 10/16/09 inflammation cecum and ascending colon consistent with infectious colitis, possibly Chrohn's 07/05/10 soft tissue mass encasing the aorta, iliac and mid distal left ureter suggesting recto- peritoneal fibrosis with obstructive uropathy on left. 05/28/15: mild dilatation intrahepatic biliary ductal system, status post cholecystectomy, common bile duct it at the ampulla level at 1.1 cm, mild splenomegaly, large hiatal hernia, sigmoid diverticulosis with possible stranding indicating diverticulitis, calcified aortic plaques, subcentimeter cyst Lower pole of the right kidney, bulky uterus with leiomyomatous appearance. 5/4/16: CT was similar findings with rectosigmoid junctional narrowing again noted 09/16/15 cortical atrophy noted in the left kidney in addition to continued rectosigmoid junctional narrowing with recommendation for colonoscopy 11/06/15 CT of abdomen was considered normal with exception of leiomyomatous uterus. 06/07/17 umbilical hernia with fat, atrophy of left kidney, borderline spleen, Acute unilateral obstructive uropathy 08/07/2010 Adjustment disorder with depressed mood 12/01/2007 September 06, 2017 Treated in the past with Ativan, Klonopin both with improvement over many years. Previous trials with amitriptyline, buspirone, bupropion, paroxetine were unhelpful. Anxiety 08/07/2010 Atrophy of left kidney 01/19/2018 01/17/18 CT abdomen severe chronic left renal atrophy with moderate right hydronephrosis, proximal ureter dilated Chronic progressive renal failure, stage 3 (moderate) ([facility]) 09/06/2017 RENAL FLOWSHEET Latest Ref Rng & Units 07/28/2012 06/04/2015 03/31/2017 CREATININE 0.58 - 0.96 mg/dL 0.93 1.00 1.52 (H) 07/05/10 CT retroperitoneal fibrosis with obstructive uropathy left kidny 09/16/15 CT demonstrated cortical atrophy l kidney COPD (chronic obstructive pulmonary disease) with chronic bronchitis (HCC) 11/12/2011 Diverticulitis of large intestine without perforation or abscess without bleeding 10/10/2015 CT abd/ pel 05/28/15 treated in ED [facility]. Has f/u with Dr. Arthur for EGD and colonoscopy but cancelled and did not follow up. Diverticulitis of sigmoid colon 2015 Dysentery Esophageal reflux 12/22/2006 Controlled on omeprazole with minimal breakthrough. 2016 failed to complete scheduled EGD. + H. Pylori testing. 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 Tobacco abuse disorder stopped smoking I have confirmed and edited as necessary, the [facility] ASSESSMENT/PLAN: 1. Heart palpitations - ICD9: 785.1, ICD10: R00.2 (primary diagnosis) 2. Injury of head, initial encounter - ICD9: 959.01, ICD10: S09.90XA Due to nature of patient's complaint and lack of investigative tools available at [facility], recommend patient be seen at nearest ED for further work up of Kayla SALCEDO, offered melissa, amarjit. Diagnosis and treatment plan were discussed and questions were answered to the patient's satisfaction. Pt acknowledged understanding of concepts and follow up plan. Specific signs and symptoms that would indicate the need for higher level of care were discussed in detail warranting prompt ER evaluation. Cheryle Braswell APRN.CERTIFIED WELLNESS PROGRAM COORDINATOR documented in this encounter [facility] 10-27-2021 History of Presen t illness Narrative 2 nd attempt left VM to call to schedule.Mariola Batres Pss .1st failed attempt to contact patient. Left message to return call. Hannah Horton PSS Patient is overdue for colorectal screening. Patient needs pre-op consult related to chart being flagged that patient needs MAC anesthesia. Please schedule a consult prior to colonoscopy. Thank you. Wily Hawley RN documented in this encounter [facility] 10-20-2021 Instructions Keven Lawrence APRN.TONI - 10/20/2021 5:46 PM EDT URINARY TRACT INFECTION GENERAL INFORMATION: A urinary tract infection (UTI) is an infection of the bladder or kidneys. A bladder infection, called cystitis, is the more common type. If the infection travels up to the kidneys, it is called pyelonephritis. This can be more serious. UTIs are a common problem in women. Having sexual relations can leave a woman more susceptible to developing a UTI, but it is not sexually transmitted like gonorrhea. Some women have a problem with recurrent UTIs. INSTRUCTIONS: 1. Your doctor prescribed an antibiotic to treat the UTI. Take exactly as directed. Be sure to take all the medication prescribed, even if your symptoms disappear. If you stop treatment early, the infection may not be fully treated and the symptoms could come back again. 2. Get plenty of rest. You may take acetaminophen for fever and aches. 3. Drink 6 to 8 glasses of fluids, especially water, every day. This helps wash out germs from your urinary tract. Cranberry juice or other sources of vitamin C are also good for you. 4. Urinate often, as soon as you feel the urge. Empty your bladder completely. Urinate before and after you have sex. 5. Always wipe from front to back after going to the bathroom. This pushes germs away from your bladder, rather than towards it. 6. Showers are better than baths, and you should wash the genital area daily. Avoid bubble bath or bath oils if you do take a bath. 7. Wear underwear and pantyhose with a cotton crotch. CONTACT YOUR DOCTOR: 1. You have a temperature over 102F (38.8C) after 48 hours on medication. 2. You notice blood in your urine. 3. Your symptoms don't improve in 2 days. 4. You develop nausea, vomiting, diarrhea, or a rash. 5. You develop new or unexplained symptoms. These may be related to the medication you are taking. 6. Your symptoms return after you finish treatment. RETURN TO THE EMERGENCY DEPARTMENT IF: You develop vomiting and can't keep your medication or fluids down. documented in this encounter [facility] 10-20-2021 History of Presen t illness Narrative Subjective HPI A nontoxic appearing female presents to urgent care with chief complaint of possible UTI. Duration of symptoms 3 days. Associated symptoms dysuria, frequency, and urgency. Patient has history of UTIs in past with similar signs and symptoms. Patient denies the use of any [id number] medications or home remedies for symptom management. Patient states pain is a 3/10. Patient denies any fevers, flank pain, abdominal pain, nausea, vomiting, vaginal discharge, or urological abnormalities. Past medical history prescription medication use allergies reviewed. .Patient presents with: UTI: frequency and burning with urination x 3 days PAST MEDICAL HISTORY Diagnosis Date Abnormal CT of the abdomen 10/10/2015 10/16/09 inflammation cecum and ascending colon consistent with infectious colitis, possibly Chrohn's 07/05/10 soft tissue mass encasing the aorta, iliac and mid distal left ureter suggesting recto- peritoneal fibrosis with obstructive uropathy on left. 05/28/15: mild dilatation intrahepatic biliary ductal system, status post cholecystectomy, common bile duct it at the ampulla level at 1.1 cm, mild splenomegaly, large hiatal hernia, sigmoid diverticulosis with possible stranding indicating diverticulitis, calcified aortic plaques, subcentimeter cyst Lower pole of the right kidney, bulky uterus with leiomyomatous appearance. 07/31/15: CT was similar findings with rectosigmoid junctional narrowing again noted 09/16/15 cortical atrophy noted in the left kidney in addition to continued rectosigmoid junctional narrowing with recommendation for colonoscopy 11/06/15 CT of abdomen was considered normal with exception of leiomyomatous uterus. 06/07/17 umbilical hernia with fat, atrophy of left kidney, borderline spleen, Acute unilateral obstructive uropathy 08/07/2010 Adjustment disorder with depressed mood 12/01/2007 September 06, 2017 Treated in the past with Ativan, Klonopin both with improvement over many years. Previous trials with amitriptyline, buspirone, bupropion, paroxetine were unhelpful. Anxiety 08/07/2010 Atrophy of left kidney 01/19/2018 01/17/18 CT abdomen severe chronic left renal atrophy with moderate right hydronephrosis, proximal ureter dilated Chronic progressive renal failure, stage 3 (moderate) ([facility]) 09/06/2017 RENAL FLOWSHEET Latest Ref Rng & Units 07/28/2012 06/04/2015 03/31/2017 CREATININE 0.58 - 0.96 mg/dL 0.93 1.00 1.52 (H) 07/05/10 CT retroperitoneal fibrosis with obstructive uropathy left kidny 09/16/15 CT demonstrated cortical atrophy l kidney COPD (chronic obstructive pulmonary disease) with chronic bronchitis (HCC) 11/12/2011 Diverticulitis of large intestine without perforation or abscess without bleeding 10/10/2015 CT abd/ pel 05/28/15 treated in ED [facility]. Has f/u with Dr. Arthur for EGD and colonoscopy but cancelled and did not follow up. Diverticulitis of sigmoid colon 2016 Dysentery Esophageal reflux 12/22/2006 Controlled on omeprazole with minimal breakthrough. 2016 failed to complete scheduled EGD. + H. Pylori testing. 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 Tobacco abuse disorder stopped smoking PAST SURGICAL HISTORY Procedure Laterality Date CHOLECYSTECTOMY 1995 Cholecystectomy ALLERGIES Oxycodone, Amitriptyline, Augmentin [Amoxicillin-Pot Clavulanate], Codeine, Doxycycline, Egg, Lodine Xl [Etodolac], Prednisone, Prevacid [Lansoprazole], and Prozac [Fluoxetine Hcl] MEDICATIONS clonazePAM (KLONOPIN) 0.5 mg tablet Take 0.5 tablets by mouth twice daily for 90 days. Try to wean by 1/2 Dose a few times a week. citalopram (CELEXA) 40 mg tablet Take 1 tablet by mouth once daily. ferrous gluconate 324 mg (37.5 mg iron) tablet Take 1 tablet by mouth daily with breakfast. Omeprazole Magnesium (PRILOSEC OTC) 20 mg tablet Take 1 tablet by mouth twice daily. cyanocobalamin (VITAMIN B-12) 1,000 mcg tab Take 1 tablet by mouth once daily. cephALEXin (KEFLEX) 500 mg capsule Take 1 capsule by mouth twice daily for 7 days. FAMILY HISTORY Problem Relation Age of Onset Diabetes Father Cervical Cancer Paternal Grandmother Stroke Paternal Grandfather Psychiatry Mother Heart Father Hypertension Father Social History Tobacco Use Smoking status: Former Smoker Years: 25.00 Types: Cigarettes Quit date: 06/27/2014 Years since quittin.3 Smokeless tobacco: Never Used Substance Use Topics Alcohol use: No Drug use: No BP 144/94 Pulse 91 Temp 36.9 C (98.5 F) Resp 21 Wt 73.3 kg (161 lb 9.6 oz) LMP 10/10/2006 SpO2 98% BMI 26.35 kg/m Review of Systems Constitutional: Negative for chills, fever and malaise/fatigue. HENT: Negative for congestion, ear discharge, ear pain, sinus pain and sore throat. Eyes: Negative for blurred vision, pain, discharge and redness. Respiratory: Negative for cough, hemoptysis, sputum production, shortness of breath, wheezing and stridor. Cardiovascular: Negative for chest pain. Gastrointestinal: Negative for abdominal pain, diarrhea, nausea and vomiting. Genitourinary: Positive for dysuria, frequency and urgency. Negative for flank pain and hematuria. Musculoskeletal: Negative for myalgias. Skin: Negative for itching and rash. Neurological: Negative for dizziness and headaches. Objective Physical Exam Constitutional: General: She is not in acute distress. Appearance: She is not diaphoretic. HENT: Head: Normocephalic. Eyes: Conjunctiva/sclera: Conjunctivae normal. Pupils: Pupils are equal, round, and reactive to light. Cardiovascular: Rate and Rhythm: Normal rate and regular rhythm. Heart sounds: Normal heart sounds. Pulmonary: Effort: Pulmonary effort is normal. No tachypnea, accessory muscle usage or respiratory distress. Breath sounds: Normal breath sounds. No stridor. No wheezing, rhonchi or rales. Abdominal: Palpations: Abdomen is soft. Tenderness: There is no abdominal tenderness. There is no right CVA tenderness, left CVA tenderness, guarding or rebound. Musculoskeletal: Cervical back: Normal range of motion and neck supple. No rigidity or tenderness. Lymphadenopathy: Cervical: No cervical adenopathy. Skin: General: Skin is warm and dry. Neurological: Mental Status: She is alert and oriented to person, place, and time. ASSESSMENT/PLAN: 1. Burning with urination - ICD9: 788.1, ICD10: R30.0 - UA DIP, URINE (POC) - URINE CULTURE Leukocytes and blood noted on urine dip. Patient will be placed on Keflex. Previous urine cultures pansensitive. Has tolerated this antibiotic in the past. Culture ordered we will treat accordingly to culture results. Patient was educated on supportive therapies. Patient will follow up with primary care provider as needed. Patient was instructed to immediately proceed to emergency room for any new, worsening, or symptoms lasting longer than anticipated. The patient's clinical presentation is otherwise unremarkable at this time. Based on exam and clinical finding, the patient is stable for discharge. Plan of care was discussed with patient. Patient verbalizes understanding and agrees to plan of care. This note was generated using [employer] software. It may contain errors in wording, punctuation, or spelling. Keven Lawrence APRN.TONI documented in this encounter [facility] 09-13-2021 History of Presen t illness Narrative Subjective HPI Kyler Barnhart is a 60 year old female who presents with 2 days of urinary frequency and dysuria. She has not taken any medication for this at home. She denies fever or chills. No N/V. No abdominal pain. Review of Systems Constitutional: Negative for chills and fever. Respiratory: Negative. Cardiovascular: Negative. Gastrointestinal: Negative for abdominal pain, nausea and vomiting. Genitourinary: Positive for dysuria and frequency. Musculoskeletal: Positive for back pain. Negative for myalgias. BP 136/82 Pulse 88 Temp 36.8 C (98.3 F) Resp 16 Wt 73.9 kg (163 lb) LMP 10/10/2006 SpO2 99% BMI 26.57 kg/m PAST MEDICAL HISTORY Diagnosis Date Abnormal CT of the abdomen 10/10/2015 10/16/09 inflammation cecum and ascending colon consistent with infectious colitis, possibly Chrohn's 07/05/10 soft tissue mass encasing the aorta, iliac and mid distal left ureter suggesting recto- peritoneal fibrosis with obstructive uropathy on left. 05/28/15: mild dilatation intrahepatic biliary ductal system, status post cholecystectomy, common bile duct it at the ampulla level at 1.1 cm, mild splenomegaly, large hiatal hernia, sigmoid diverticulosis with possible stranding indicating diverticulitis, calcified aortic plaques, subcentimeter cyst Lower pole of the right kidney, bulky uterus with leiomyomatous appearance. 07/31/15: CT was similar findings with rectosigmoid junctional narrowing again noted 09/16/15 cortical atrophy noted in the left kidney in addition to continued rectosigmoid junctional narrowing with recommendation for colonoscopy 11/06/15 CT of abdomen was considered normal with exception of leiomyomatous uterus. 06/07/17 umbilical hernia with fat, atrophy of left kidney, borderline spleen, Acute unilateral obstructive uropathy 08/07/2010 Adjustment disorder with depressed mood 12/01/2007 September 06, 2017 Treated in the past with Ativan, Klonopin both with improvement over many years. Previous trials with amitriptyline, buspirone, bupropion, paroxetine were unhelpful. Anxiety 08/07/2010 Atrophy of left kidney 01/19/2018 01/17/18 CT abdomen severe chronic left renal atrophy with moderate right hydronephrosis, proximal ureter dilated Chronic progressive renal failure, stage 3 (moderate) ([facility]) 09/06/2017 RENAL FLOWSHEET Latest Ref Rng & Units 07/28/2012 06/04/2015 03/31/2017 CREATININE 0.58 - 0.96 mg/dL 0.93 1.00 1.52 (H) 07/05/10 CT retroperitoneal fibrosis with obstructive uropathy left kidny 09/16/15 CT demonstrated cortical atrophy l kidney COPD (chronic obstructive pulmonary disease) with chronic bronchitis (HCC) 11/12/2011 Diverticulitis of large intestine without perforation or abscess without bleeding 10/10/2015 CT abd/ pel 05/28/15 treated in ED [facility]. Has f/u with Dr. Arthur for EGD and colonoscopy but cancelled and did not follow up. Diverticulitis of sigmoid colon 2015 Dysentery Esophageal reflux 12/22/2006 Controlled on omeprazole with minimal breakthrough. 2015 failed to complete scheduled EGD. + H. Pylori testing. 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 Tobacco abuse disorder stopped smoking PAST SURGICAL HISTORY Procedure Laterality Date CHOLECYSTECTOMY 1995 Cholecystectomy ALLERGIES Oxycodone, Amitriptyline, Augmentin [Amoxicillin-Pot Clavulanate], Codeine, Doxycycline, Egg, Lodine Xl [Etodolac], Prednisone, Prevacid [Lansoprazole], and Prozac [Fluoxetine Hcl] MEDICATIONS clonazePAM (KLONOPIN) 0.5 mg tablet Take 0.5 tablets by mouth twice daily for 90 days. Try to wean by 1/2 Dose a few times a week. citalopram (CELEXA) 40 mg tablet Take 1 tablet by mouth once daily. ferrous gluconate 324 mg (37.5 mg iron) tablet Take 1 tablet by mouth daily with breakfast. Omeprazole Magnesium (PRILOSEC OTC) 20 mg tablet Take 1 tablet by mouth twice daily. cyanocobalamin (VITAMIN B-12) 1,000 mcg tab Take 1 tablet by mouth once daily. sulfamethoxazole-trimethoprim (BACTRIM DS) 800-160 mg per tablet Take 1 tablet by mouth twice daily for 7 days. FAMILY HISTORY Problem Relation Age of Onset Diabetes Father Cervical Cancer Paternal Grandmother Stroke Paternal Grandfather Psychiatry Mother Heart Father Hypertension Father Social History Tobacco Use Smoking status: Former Smoker Years: 25.00 Types: Cigarettes Quit date: 06/27/2014 Years since quittin.2 Smokeless tobacco: Never Used Substance Use Topics Alcohol use: No Drug use: No Objective Physical Exam Vitals and nursing note reviewed. Constitutional: Appearance: Normal appearance. Cardiovascular: Rate and Rhythm: Normal rate and regular rhythm. Pulmonary: Effort: Pulmonary effort is normal. Breath sounds: Normal breath sounds. Abdominal: General: There is no distension. Palpations: Abdomen is soft. There is no mass. Tenderness: There is abdominal tenderness in the suprapubic area. There is no guarding. Skin: General: Skin is warm and dry. Neurological: Mental Status: She is alert. ASSESSMENT/PLAN: 1. Urinary frequency - ICD9: 788.41, ICD10: R35.0 acute - UA positive for keshawn esterase and hematuria - Send urine for culture - Begin treatment with Bactrim DS BID for 7 days - Patient education for prevention given - URINE CULTURE - SULFAMETHOXAZOLE 800 MG-TRIMETHOPRIM 160 MG TABLET - Follow-up with your PCP in 3-5 days if symptoms have not improved or sooner if symptoms worsen - Discussed red flags and need for immediate medical evaluation if any occur. - Discussed supportive care treatment with fluids, rest and analgesia. - Discussed expected course of illness Sabine Lyon APRN.CNP documented in this encounter [facility] 09-13-2021 Instructions Sabine Lyon APRN.CNP - 09/13/2021 3:32 PM EDT ASSESSMENT/PLAN: 1. Urinary frequency - ICD9: 788.41, ICD10: R35.0 acute - UA positive for keshawn esterase and hematuria - Send urine for culture - Begin treatment with Bactrim DS BID for 7 days - Patient education for prevention given - URINE CULTURE - SULFAMETHOXAZOLE 800 MG-TRIMETHOPRIM 160 MG TABLET - Follow-up with your PCP in 3-5 days if symptoms have not improved or sooner if symptoms worsen - Discussed red flags and need for immediate medical evaluation if any occur. - Discussed supportive care treatment with fluids, rest and analgesia. - Discussed expected course of illness Sabine Lyon APRN.[facility] PATIENT INFO BLADDER INFECTION OVERVIEW Bladder infections are one of the most common infections, causing symptoms of burning with urination and needing to urinate frequently. A bladder infection is a type of urinary tract infection (UTI). Bladder infections are more common is women than men. Most women have an uncomplicated bladder infection that is easily treated with a short course of antibiotics. In men, bladder infections may also affect the prostate gland, and a longer course of treatment may be needed. BLADDER INFECTION CAUSES The urinary tract includes the kidneys (which filter urine), ureters (the tube that carries urine from the kidneys to the bladder), the bladder (which stores urine), and urethra (the tube that carries urine out of the bladder). Bacteria do not normally live in these areas. However, bacteria normally live close to the urethra in women and men who are not circumcised. Bladder infections occur when bacteria travel up the urethra into the bladder. Factors that increase the risk of developing a bladder infection include: Vaginal sex Use of spermicides History of past bladder infections Diabetes In men, not being circumcised or having anal sex increase the risk of bladder infections. BLADDER INFECTION SYMPTOMS The typical symptoms of a bladder infection include: Pain or burning when urinating Frequent need to urinate Urgent need to urinate Blood in the urine Fever, back pain, nausea, or vomiting are not common symptoms of a bladder infection, but can occur in people with a kidney infection (pyelonephritis). If you have these symptoms, you should call your doctor or nurse immediately. Is it a bladder infection or something else? Burning with urination can also occur in people with vaginitis (eg, yeast infection) or urethritis (inflammation of the urethra). For this reason, it is important to call your healthcare provider before assuming you have a bladder infection. BLADDER INFECTION DIAGNOSIS Simple bladder infections are usually diagnosed based upon your symptoms alone. However, most patients, especially those who have bladder infection symptoms for the first time, should see a healthcare provider for urine testing. Urine culture A urine culture is a test that uses a sample of urine to try and grow bacteria in a laboratory. It usually requires about 48 hours to get results. However, a urine culture is not always required to diagnose a bladder infection. Urine culture is often recommended if: You have never had a bladder infection before You have symptoms that are not typical for bladder infection You have had resistant bladder infections before You have frequent bladder infections You do not begin to feel better within 24 to 48 hours after starting antibiotics You are BLADDER INFECTION TREATMENT Bladder infection In young, healthy adolescents and adults with a bladder infection, the usual treatment includes a three to seven day course of antibiotics. The typical drugs chosen are: trimethoprim-sulfamethoxazole (Bactrim ), nitrofurantoin (Macrobid ), ciprofloxacin (Cipro ) or levofloxacin (Levaquin ). In men, the infection may involve your prostate gland and treatment is usually given for at least 7 days. Your symptoms should begin to resolve within one day after starting treatment. It is important to take the full course of antibiotics to completely eliminate the infection. If your symptoms persist for more than two or three days after starting treatment, call your healthcare provider. If needed, you can take a prescription medication that numbs the bladder and urethra (phenazopyridine [Pyridium ]) to reduce the burning pain of some UTIs. A similar medication is available without a prescription (eg, Uristat). Both medications change the color of the urine (usually blue or orange) and can interfere with laboratory testing. You should not take these medications for more than 48 hours due to the risk of side effects. These medications do not treat the infection and must be taken along with an antibiotic. Some providers recommend drinking more fluids while treating bladder infections to help flush bacteria from the bladder. Others believe that drinking more fluids may dilute the antibiotic in the bladder and make the medication less effective. No studies have been performed to address this issue. There are also no good studies on the effectiveness of cranberry juice for treating a bladder infection; we do not recommend using cranberry juice to treat bladder infections. Follow-up care Follow-up testing is not needed in healthy, young men or women with a bladder infection if symptoms resolve. women are usually asked to have a repeat urine culture one to two weeks after treatment has ended to make sure the bacteria are no longer in the urine. RECURRENT BLADDER INFECTIONS Bladder infections versus other causes Some adults, especially women, develop bladder infections frequently. In this case, it is important to confirm that your symptoms (eg, pain or burning, frequency, and urgency) are caused by a bladder infection. Symptoms are usually similar from one infection to another. The best way to confirm an infection is to have a urine culture. If your urine culture is negative for infection, other causes of pain, burning, and frequency should be investigated. There is no reason to take antibiotics if your urine culture is negative. Need for further testing If you continue to develop bladder infections, you may require further testing. If you continue to notice blood in your urine after your bladder infection has cleared, you should have further testing. Preventing recurrent UTIs Women with recurrent urinary tract infections may be advised to take steps to prevent bladder infections, including one or more of the following: Changes in control Women who develop frequent bladder infections and use spermicides, particularly those who also use a diaphragm, may be encouraged to use an alternate method of control. Cranberry products Taking cranberry juice or cranberry tablets has been promoted as one way to help prevent frequent bladder infections. However, this has not been proven. Drinking more fluid and urinating after intercourse Although studies have not proven that drinking more fluids or urinating soon after intercourse can prevent infection, some healthcare providers recommend these measures since they are not harmful. Drinking more fluid may help to wash out bacteria that enter the bladder. Postmenopausal women Postmenopausal women who develop recurrent bladder infections may benefit from using vaginal estrogen. Vaginal estrogen is available in a flexible ring that is worn in the vagina for three months (eg, Estring ), a small tablet (Vagifem ), or a cream (eg, Premarin or Estrace ). Vaginal estrogen is discussed in more detail in a separate topic review. Antibiotics A preventive antibiotic treatment may be recommended if you repeatedly develop bladder infections and have not responded to other preventive measures. Antibiotics are highly effective in preventing recurrent bladder infections and can be taken in several different ways. Preventive antibiotic You can take a low dose of an antibiotic once per day or three times per week for six months to several years. Antibiotics following intercourse In women who develop urinary tract infections after sex, taking a single low dose antibiotic after intercourse can help to prevent bladder infections. Self-treatment A plan to begin antibiotics at the first sign of a bladder infection may be recommended in some situations. Before starting this regimen, it is important that you have had testing (urine cultures) to confirm that your symptoms are caused by a bladder infection; some people have symptoms of a bladder infection but do not actually have an infection. documented in this encounter [facility] 07-28-2021 History of Presen t illness Narrative 07/28/2021 Patient presents with: Urinary Frequency: painful urination x1.5 months SUBJECTIVE: This is a 60 year old that is here today for Complaint(s) of dysuria and urinary frequency. Treated for UTI 06/25 with bactrim, culture positive and sensitive to antibiotic. Symptoms completely resolved. Patient then had symptoms 07/14, treated with keflex for 10 days. Culture positive and sensitive to keflex. Completed antibiotic course but felt like symptoms never fully resolved. Culture + for proteus mirabilis both times. Resistant to macrobid. Denies fever/chills, nausea, vomiting. Notes mild lower abdominal pressure/cramping sensation. Mild right lower back pain. Denies hematuria, diarrhea, constipation. No new sexual partners. No abnormal vaginal discharge. Last cr was 1.14 October 16, never had repeat labs. PAST MEDICAL HISTORY Diagnosis Date Abnormal CT of the abdomen 10/10/2015 10/16/09 inflammation cecum and ascending colon consistent with infectious colitis, possibly Chrohn's 07/05/10 soft tissue mass encasing the aorta, iliac and mid distal left ureter suggesting recto- peritoneal fibrosis with obstructive uropathy on left. 05/28/15: mild dilatation intrahepatic biliary ductal system, status post cholecystectomy, common bile duct it at the ampulla level at 1.1 cm, mild splenomegaly, large hiatal hernia, sigmoid diverticulosis with possible stranding indicating diverticulitis, calcified aortic plaques, subcentimeter cyst Lower pole of the right kidney, bulky uterus with leiomyomatous appearance. 07/31/15: CT was similar findings with rectosigmoid junctional narrowing again noted 09/16/15 cortical atrophy noted in the left kidney in addition to continued rectosigmoid junctional narrowing with recommendation for colonoscopy 11/06/15 CT of abdomen was considered normal with exception of leiomyomatous uterus. 06/07/17 umbilical hernia with fat, atrophy of left kidney, borderline spleen, Acute unilateral obstructive uropathy 08/07/2010 Adjustment disorder with depressed mood 12/01/2007 September 06, 2017 Treated in the past with Ativan, Klonopin both with improvement over many years. Previous trials with amitriptyline, buspirone, bupropion, paroxetine were unhelpful. Anxiety 08/07/2010 Atrophy of left kidney 01/19/2018 01/17/18 CT abdomen severe chronic left renal atrophy with moderate right hydronephrosis, proximal ureter dilated Chronic progressive renal failure, stage 3 (moderate) (HCC) 09/06/2017 RENAL FLOWSHEET Latest Ref Rng & Units 07/28/2012 06/04/2015 03/31/2017 CREATININE 0.58 - 0.96 mg/dL 0.93 1.00 1.52 (H) 07/05/10 CT retroperitoneal fibrosis with obstructive uropathy left kidny 09/16/15 CT demonstrated cortical atrophy l kidney COPD (chronic obstructive pulmonary disease) with chronic bronchitis (HCC) 11/12/2011 Diverticulitis of large intestine without perforation or abscess without bleeding 10/10/2015 CT abd/ pel 05/28/15 treated in ED [facility]. Has f/u with Dr. Arthur for EGD and colonoscopy but cancelled and did not follow up. Diverticulitis of sigmoid colon 2015 Dysentery Esophageal reflux 12/22/2006 Controlled on omeprazole with minimal breakthrough. 2015 failed to complete scheduled EGD. + H. Pylori testing. 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 Tobacco abuse disorder stopped smoking ALLERGIES Oxycodone, Amitriptyline, Augmentin [Amoxicillin-Pot Clavulanate], Codeine, Doxycycline, Egg, Lodine Xl [Etodolac], Prednisone, Prevacid [Lansoprazole], and Prozac [Fluoxetine Hcl] MEDICATIONS Current Outpatient Medications Medication Sig clonazePAM (KLONOPIN) 0.5 mg tablet Take 0.5 tablets by mouth twice daily for 90 days. Try to wean by 1/2 Dose a few times a week. citalopram (CELEXA) 40 mg tablet Take 1 tablet by mouth once daily. ferrous gluconate 324 mg (37.5 mg iron) tablet Take 1 tablet by mouth daily with breakfast. Omeprazole Magnesium (PRILOSEC OTC) 20 mg tablet Take 1 tablet by mouth twice daily. cyanocobalamin (VITAMIN B-12) 1,000 mcg tab Take 1 tablet by mouth once daily. Current Facility-Administered Medications Medication Dose Route Frequency cyanocobalamin 1,000 mcg injection 1,000 mcg SUBCUTANEOUS 1/WK SOCIAL HISTORY Social History Tobacco Use Smoking status: Former Smoker Years: 25.00 Types: Cigarettes Quit date: 06/27/2014 Years since quittin.0 Smokeless tobacco: Never Used Substance Use Topics Alcohol use: No Drug use: No REVIEW OF SYSTEMS See HPI OBJECTIVE: BP 122/80 Pulse 96 Temp 36.8 C (98.2 F) Resp 18 Wt 73.8 kg (162 lb 12.8 oz) LMP 10/10/2006 SpO2 99% BMI 26.54 kg/m APPEARANCE Well appearing, alert, in no acute distress, well-hydrated, well nourished. ABDOMEN soft, non-tender, non-distended BACK: Normal exam, no CVA TTP ASSESSMENT/PLAN: 1. Urinary frequency - ICD9: 788.41, ICD10: R35.0 acute - UA positive for keshawn esterase, hematuria and proteinuria - Send urine for culture - Begin treatment with bactrim based on previous culture for 7 days Cr Clearance is 56 - Patient education for prevention given - UA DIP, URINE (POC) - URINE CULTURE - BASIC METABOLIC PNL - SULFAMETHOXAZOLE 800 MG-TRIMETHOPRIM 160 MG TABLET Advise consult to urology if patient has another UTI within the next 6 months after treatment of this UTI or if urine culture is negative. Push fluids Reviewed red flags and when to seek care sooner in ER The patient indicates understanding of these issues and agrees with the plan. Nathalie Vazquez PA-C 07/28/2021 documented in this encounter [facility] 07-14-2021 History of Presen t illness Narrative This note was created using [employer]. Subjective Kyler Barnhart is a 60 year old female. HPI Patient presents with abdominal cramping and nausea with dysuria and frequency over the past month. She was seen June 25 and treated with 5 days of Bactrim. She noted a little bit of improvement while she was on the Bactrim but a couple days after she finished it all came right back. She denies fever. She does have some low back pain. No vomiting but does feel nauseated. She has had UTIs previously. Denies vaginal itching or discharge. No diarrhea. Review of Systems Gastrointestinal: Positive for abdominal pain and nausea. Genitourinary: Positive for dysuria, frequency, pelvic pain and urgency. Negative for flank pain, hematuria, vaginal discharge and vaginal pain. Musculoskeletal: Positive for back pain. All other systems reviewed and are negative. PAST MEDICAL HISTORY Diagnosis Date Abnormal CT of the abdomen 10/10/2015 10/16/09 inflammation cecum and ascending colon consistent with infectious colitis, possibly Chrohn's 07/05/10 soft tissue mass encasing the aorta, iliac and mid distal left ureter suggesting recto- peritoneal fibrosis with obstructive uropathy on left. 05/28/15: mild dilatation intrahepatic biliary ductal system, status post cholecystectomy, common bile duct it at the ampulla level at 1.1 cm, mild splenomegaly, large hiatal hernia, sigmoid diverticulosis with possible stranding indicating diverticulitis, calcified aortic plaques, subcentimeter cyst Lower pole of the right kidney, bulky uterus with leiomyomatous appearance. 07/31/15: CT was similar findings with rectosigmoid junctional narrowing again noted 09/16/15 cortical atrophy noted in the left kidney in addition to continued rectosigmoid junctional narrowing with recommendation for colonoscopy 11/06/15 CT of abdomen was considered normal with exception of leiomyomatous uterus. 06/07/17 umbilical hernia with fat, atrophy of left kidney, borderline spleen, Acute unilateral obstructive uropathy 08/07/2010 Adjustment disorder with depressed mood 12/01/2007 September 06, 2017 Treated in the past with Ativan, Klonopin both with improvement over many years. Previous trials with amitriptyline, buspirone, bupropion, paroxetine were unhelpful. Anxiety 08/07/2010 Atrophy of left kidney 01/19/2018 01/17/18 CT abdomen severe chronic left renal atrophy with moderate right hydronephrosis, proximal ureter dilated Chronic progressive renal failure, stage 3 (moderate) (HCC) 09/06/2017 RENAL FLOWSHEET Latest Ref Rng & Units 07/28/2012 06/04/2015 03/31/2017 CREATININE 0.58 - 0.96 mg/dL 0.93 1.00 1.52 (H) 07/05/10 CT retroperitoneal fibrosis with obstructive uropathy left kidny 09/16/15 CT demonstrated cortical atrophy l kidney COPD (chronic obstructive pulmonary disease) with chronic bronchitis (HCC) 11/12/2011 Diverticulitis of large intestine without perforation or abscess without bleeding 10/10/2015 CT abd/ pel 05/28/15 treated in ED [facility]. Has f/u with Dr. Arthur for EGD and colonoscopy but cancelled and did not follow up. Diverticulitis of sigmoid colon 2015 Dysentery Esophageal reflux 12/22/2006 Controlled on omeprazole with minimal breakthrough. 2015 failed to complete scheduled EGD. + H. Pylori testing. 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 Tobacco abuse disorder stopped smoking Current Outpatient Medications Medication Sig Dispense Refill clonazePAM (KLONOPIN) 0.5 mg tablet Take 0.5 tablets by mouth twice daily for 90 days. Try to wean by 1/2 Dose a few times a week. 60 tablet 2 citalopram (CELEXA) 40 mg tablet Take 1 tablet by mouth once daily. 30 tablet 11 ferrous gluconate 324 mg (37.5 mg iron) tablet Take 1 tablet by mouth daily with breakfast. 30 tablet 5 Omeprazole Magnesium (PRILOSEC OTC) 20 mg tablet Take 1 tablet by mouth twice daily. 60 tablet 5 cyanocobalamin (VITAMIN B-12) 1,000 mcg tab Take 1 tablet by mouth once daily. 90 tablet 3 cephALEXin (KEFLEX) 500 mg capsule Take 1 capsule by mouth twice daily for 10 days. 20 capsule 0 terbinafine HCl (LAMISIL) 1 % cream Apply to affected area twice daily for 14 days. (Patient not taking: Reported on 07/14/2021 ) 24 g 1 Current Facility-Administered Medications Medication Dose Route Frequency Provider Last Rate Last Admin cyanocobalamin 1,000 mcg injection 1,000 mcg SUBCUTANEOUS 1/WK Jean Ramos MD 1,000 mcg at 11/18/20 1332 PAST SURGICAL HISTORY Procedure Laterality Date CHOLECYSTECTOMY 1995 Cholecystectomy FAMILY HISTORY Problem Relation Age of Onset Diabetes Father Cervical Cancer Paternal Grandmother Stroke Paternal Grandfather Psychiatry Mother Heart Father Hypertension Father Social History Tobacco Use Smoking status: Former Smoker Years: 25.00 Types: Cigarettes Quit date: 06/27/2014 Years since quittin.0 Smokeless tobacco: Never Used Substance Use Topics Alcohol use: No Drug use: No Objective BP 124/72 Pulse 94 Temp 36.8 C (98.3 F) Resp 18 Wt 72.6 kg (160 lb) LMP 10/10/2006 SpO2 97% BMI 26.09 kg/m Physical Exam Vitals reviewed. Constitutional: Appearance: Normal appearance. HENT: Head: Normocephalic and atraumatic. Cardiovascular: Rate and Rhythm: Normal rate and regular rhythm. Heart sounds: Normal heart sounds. Pulmonary: Effort: Pulmonary effort is normal. Breath sounds: Normal breath sounds. Abdominal: General: Abdomen is flat. Palpations: Abdomen is soft. Tenderness: There is abdominal tenderness. There is no right CVA tenderness, left CVA tenderness or guarding. Comments: Patient has suprapubic tenderness on palpation. No guarding. No other tenderness of the abdomen. Skin: General: Skin is warm and dry. Neurological: Mental Status: She is alert. Assessment and Plan ASSESSMENT/PLAN: 1. Acute UTI - ICD9: 599.0, ICD10: N39.0 (primary diagnosis) Urine culture reviewed from 330 which did show cleaning sensitivity. I will place her on Keflex and have her follow-up with PCP if symptoms do not improve. - UA DIP, URINE (POC) - URINE CULTURE 2. Nausea - ICD9: 787.02, ICD10: R11.0 - UA DIP, URINE (POC) - URINE CULTURE Nelly Allen PA-C documented in this encounter [facility] 07-04-2021 Miscellaneous Notes PATIENT NOTIFIED OF SAME. Can we please let patient know that we need an additional urine test. The order is in. Chaparrita Newman APRN.TONI Spoke with Inder in the lab and the urine specimen is only good refrigerated for 12 hours. Can we please see if lab can add a benzo confirmation to the urine that she already has submitted? Order is in. Chaparrita Newman APRN.TONI documented in this encounter [facility] 06-25-2021 Instructions Marcelo Allen APRN.CNP - 06/25/2021 5:38 PM EDT Patient Education for Female Urinary Tract Infections Possible complications: Pyelonehritis Renal abscess Expected course/prognosis: * symptoms resolve within 2-3 days after starting treatment in almost all patients * one-fourth of women with simple UTI experience a second UTI within 6 months, and half at some time during lifetime. * patients with multiple recurrent UTI and no underlying urinary tract abnormality may receive long-term prophylactic antibioitic treatment. Trimethoprim-sulfamethoxazole and nitrofurantoin common used. * women with frequent or intercourse-related UTI should empty bladder immediately before and following intercourse and consider postcoital antibiotic treament Instructions: * Maintain good hydration * Avoid sexual intercourse when symptoms present *Take antibiotic as directed * Return if symptoms not resolved or markedly improved within 48 hours * Return if fever, chills, or flank pain develop * If taking prophylactic antiobiotics, take at bedtime * Take showers instead of tub baths * Avoid feminine hygiene sprays and scented douches * Wipe urethra from front to back documented in this encounter [facility] 06-25-2021 History of Presen t illness Narrative Subjective HPI HPI Kyler Barnhart is a 60 year old female who presents today for CC of burning with urination, cloudy urine. This started 2 days ago. Has tried nothing for relief. Symptoms are worsened by nothing. Risk factors hx of uti. .Patient presents with: burning with urination: burning and cloudy urine x 2 days PAST MEDICAL HISTORY Diagnosis Date Abnormal CT of the abdomen 10/10/2015 10/16/09 inflammation cecum and ascending colon consistent with infectious colitis, possibly Chrohn's 07/05/10 soft tissue mass encasing the aorta, iliac and mid distal left ureter suggesting recto- peritoneal fibrosis with obstructive uropathy on left. 05/28/15: mild dilatation intrahepatic biliary ductal system, status post cholecystectomy, common bile duct it at the ampulla level at 1.1 cm, mild splenomegaly, large hiatal hernia, sigmoid diverticulosis with possible stranding indicating diverticulitis, calcified aortic plaques, subcentimeter cyst Lower pole of the right kidney, bulky uterus with leiomyomatous appearance. 07/31/15: CT was similar findings with rectosigmoid junctional narrowing again noted 09/16/15 cortical atrophy noted in the left kidney in addition to continued rectosigmoid junctional narrowing with recommendation for colonoscopy 11/06/15 CT of abdomen was considered normal with exception of leiomyomatous uterus. 06/07/17 umbilical hernia with fat, atrophy of left kidney, borderline spleen, Acute unilateral obstructive uropathy 08/07/2010 Adjustment disorder with depressed mood 12/01/2007 September 06, 2017 Treated in the past with Ativan, Klonopin both with improvement over many years. Previous trials with amitriptyline, buspirone, bupropion, paroxetine were unhelpful. Anxiety 08/07/2010 Atrophy of left kidney 01/19/2018 01/17/18 CT abdomen severe chronic left renal atrophy with moderate right hydronephrosis, proximal ureter dilated Chronic progressive renal failure, stage 3 (moderate) (HCC) 09/06/2017 RENAL FLOWSHEET Latest Ref Rng & Units 07/28/2012 06/04/2015 03/31/2017 CREATININE 0.58 - 0.96 mg/dL 0.93 1.00 1.52 (H) 07/05/10 CT retroperitoneal fibrosis with obstructive uropathy left kidny 09/16/15 CT demonstrated cortical atrophy l kidney COPD (chronic obstructive pulmonary disease) with chronic bronchitis (HCC) 11/12/2011 Diverticulitis of large intestine without perforation or abscess without bleeding 10/10/2015 CT abd/ pel 05/28/15 treated in ED [facility]. Has f/u with Dr. Arthur for EGD and colonoscopy but cancelled and did not follow up. Diverticulitis of sigmoid colon 2015 Dysentery Esophageal reflux 12/22/2006 Controlled on omeprazole with minimal breakthrough. 2015 failed to complete scheduled EGD. + H. Pylori testing. 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 Tobacco abuse disorder stopped smoking PAST SURGICAL HISTORY Procedure Laterality Date CHOLECYSTECTOMY 1996 Cholecystectomy ALLERGIES Oxycodone, Amitriptyline, Augmentin [Amoxicillin-Pot Clavulanate], Codeine, Doxycycline, Egg, Lodine Xl [Etodolac], Prednisone, Prevacid [Lansoprazole], and Prozac [Fluoxetine Hcl] MEDICATIONS cyanocobalamin (VITAMIN B-12) 1,000 mcg tab Take 1 tablet by mouth once daily. guaiFENesin (MUCINEX) 600 mg 12 hr tablet Take 2 tablets by mouth twice daily. albuterol HFA (PROAIR HFA) 90 mcg/actuation inhaler Inhale 2 Puffs as instructed every 4 hours as needed. citalopram (CELEXA) 40 mg tablet Take 1 tablet by mouth once daily. ferrous gluconate 324 mg (37.5 mg iron) tablet Take 1 tablet by mouth daily with breakfast. Omeprazole Magnesium (PRILOSEC OTC) 20 mg tablet Take 1 tablet by mouth twice daily. mometasone (ELOCON) 0.1 % cream Apply 1 application to affected area once daily. ferrous sulfate 325 mg (65 mg iron) tablet Take 1 tablet by mouth twice daily with meals. clonazePAM (KLONOPIN) 0.5 mg tablet Take 0.5 tablets by mouth twice daily for 90 days. Try to wean by 1/2 Dose a few times a week. FAMILY HISTORY Problem Relation Age of Onset Diabetes Father Cervical Cancer Paternal Grandmother Stroke Paternal Grandfather Psychiatry Mother Heart Father Hypertension Father Social History Tobacco Use Smoking status: Former Smoker Years: 25.00 Types: Cigarettes Quit date: 06/27/2014 Years since quittin.0 Smokeless tobacco: Never Used Substance Use Topics Alcohol use: No Drug use: No Review of Systems Constitutional: Negative for chills, fever and weight loss. Respiratory: Negative for cough, shortness of breath and wheezing. Cardiovascular: Negative for chest pain and palpitations. Gastrointestinal: Negative for abdominal pain, blood in stool, constipation, diarrhea, heartburn, melena, nausea and vomiting. Genitourinary: Positive for dysuria. Negative for flank pain, frequency, hematuria and urgency. Objective Blood pressure 130/82, pulse 87, temperature 36.7 C (98.1 F), temperature source Tympanic, resp. rate 18, weight 73 kg (161 lb), last menstrual period 10/10/2006, SpO2 98 %. Component Latest Ref Rng & Units 10/02/2020 Glucose 74 - 99 mg/dL 84 BUN 7 - 21 mg/dL 16 Creatinine 0.58 - 0.96 mg/dL 1.14 (H) Sodium 136 - 144 mmol/L 139 Potassium 3.7 - 5.1 mmol/L 4.8 Chloride 97 - 105 mmol/L 107 (H) CO2 22 - 30 mmol/L 22 Anion Gap 9 - 18 mmol/L 10 Calcium 8.5 - 10.2 mg/dL 9.1 eGFR- 59 eGFR-All Other Races . 49 Physical Exam Constitutional: General: She is not in acute distress. Appearance: Normal appearance. She is not toxic-appearing. Cardiovascular: Rate and Rhythm: Normal rate and regular rhythm. Heart sounds: Normal heart sounds. Pulmonary: Effort: Pulmonary effort is normal. Breath sounds: Normal breath sounds. Abdominal: General: Bowel sounds are normal. Palpations: Abdomen is soft. Tenderness: There is no abdominal tenderness. Skin: General: Skin is warm and dry. ASSESSMENT/PLAN: 1. Burning with urination - ICD9: 788.1, ICD10: R30.0 acute - UA positive for keshawn esterase, hematuria and proteinuria - Send urine for culture - Begin treatment with Bactrim DS BID for 5 days - Patient education for prevention given Creatinine clearance calculated to be over 30 per online calculator - UA DIP, URINE (POC) - URINE CULTURE - SULFAMETHOXAZOLE 800 MG-TRIMETHOPRIM 160 MG TABLET Agrees to plan Marcelo Allen APRN.CNP documented in this encounter [facility] documented as of this encounter (statuses as of 06/25/2021) [facility] History of Past illness Narrative* Problem Noted Date Resolved Date LLQ pain 10/10/2015 09/06/2017 Irritable bowel syndrome with diarrhea 6 09/06/2017 Acne 12/03/2011 09/06/2017 COPD (chronic obstructive pu lmonary disease) with chronic bronchitis 11/12/2011 08/22/2014 Anxiety 08/07/2010 09/06/2017 Acute unilateral obstructive uropathy 08/07/2010 09/06/2017 Colitis 10/31/2009 09/06/2017 Shortness of breath 12/26/2007 09/06/2017 Tobacco use disorder 06/09/2007 09/06/2017 documented as of this encounter (statuses as of 07/04/2021) [facility] of Past illness Narrative* Problem Noted Date Resolved Date LLQ pain 10/10/2015 09/06/2017 Irritable bowel syndrome with diarrhea 6 09/06/2017 Acne 12/03/2011 09/06/2017 COPD (chronic obstructive pu lmonary disease) with chronic bronchitis 11/12/2011 08/22/2014 Anxiety 08/07/2010 09/06/2017 Acute unilateral obstructive uropathy 08/07/2010 09/06/2017 Colitis 10/31/2009 09/06/2017 Shortness of breath 12/26/2007 09/06/2017 Tobacco use disorder 06/09/2007 09/06/2017 documented as of this encounter (statuses as of 07/14/2021) [facility] of Past illness Narrative* Problem Noted Date Resolved Date LLQ pain 10/10/2015 09/06/2017 Irritable bowel syndrome with diarrhea 6 09/06/2017 Acne 12/03/2011 09/06/2017 COPD (chronic obstructive pu lmonary disease) with chronic bronchitis 11/12/2011 08/22/2014 Anxiety 08/07/2010 09/06/2017 Acute unilateral obstructive uropathy 08/07/2010 09/06/2017 Colitis 10/31/2009 09/06/2017 Shortness of breath 12/26/2007 09/06/2017 Tobacco use disorder 06/09/2007 09/06/2017 documented as of this encounter (statuses as of 07/28/2021) [facility] of Past illness Narrative* Problem Noted Date Resolved Date LLQ pain 10/10/2015 09/06/2017 Irritable bowel syndrome with diarrhea 6 09/06/2017 Acne 12/03/2011 09/06/2017 COPD (chronic obstructive pu lmonary disease) with chronic bronchitis 11/12/2011 08/22/2014 Anxiety 08/07/2010 09/06/2017 Acute unilateral obstructive uropathy 08/07/2010 09/06/2017 Colitis 10/31/2009 09/06/2017 Shortness of breath 12/26/2007 09/06/2017 Tobacco use disorder 06/09/2007 09/06/2017 documented as of this encounter (statuses as of 09/13/2021) [facility] of Past illness Narrative* Problem Noted Date Resolved Date LLQ pain 10/10/2015 09/06/2017 Irritable bowel syndrome with diarrhea 6 09/06/2017 Acne 12/03/2011 09/06/2017 COPD (chronic obstructive pu lmonary disease) with chronic bronchitis 11/12/2011 08/22/2014 Anxiety 08/07/2010 09/06/2017 Acute unilateral obstructive uropathy 08/07/2010 09/06/2017 Colitis 10/31/2009 09/06/2017 Shortness of breath 12/26/2007 09/06/2017 Tobacco use disorder 06/09/2007 09/06/2017 documented as of this encounter (statuses as of 10/20/2021) [facility] of Past illness Narrative* Problem Noted Date Resolved Date LLQ pain 10/10/2015 09/06/2017 Irritable bowel syndrome with diarrhea 6 09/06/2017 Acne 12/03/2011 09/06/2017 COPD (chronic obstructive pu lmonary disease) with chronic bronchitis 11/12/2011 08/22/2014 Anxiety 08/07/2010 09/06/2017 Acute unilateral obstructive uropathy 08/07/2010 09/06/2017 Colitis 10/31/2009 09/06/2017 Shortness of breath 12/26/2007 09/06/2017 Tobacco use disorder 06/09/2007 09/06/2017 documented as of this encounter (statuses as of 10/27/2021) [facility] of Past illness Narrative* Problem Noted Date Resolved Date LLQ pain 10/10/2015 09/06/2017 Irritable bowel syndrome with diarrhea 6 09/06/2017 Acne 12/03/2011 09/06/2017 COPD (chronic obstructive pu lmonary disease) with chronic bronchitis 11/12/2011 08/22/2014 Anxiety 08/07/2010 09/06/2017 Acute unilateral obstructive uropathy 08/07/2010 09/06/2017 Colitis 10/31/2009 09/06/2017 Shortness of breath 12/26/2007 09/06/2017 Tobacco use disorder 06/09/2007 09/06/2017 documented as of this encounter (statuses as of 11/26/2021) [facility] of Past illness Narrative* Problem Noted Date Resolved Date LLQ pain 10/10/2015 09/06/2017 Irritable bowel syndrome with diarrhea 6 09/06/2017 Acne 12/03/2011 09/06/2017 COPD (chronic obstructive pu lmonary disease) with chronic bronchitis 11/12/2011 08/22/2014 Anxiety 08/07/2010 09/06/2017 Acute unilateral obstructive uropathy 08/07/2010 09/06/2017 Colitis 10/31/2009 09/06/2017 Shortness of breath 12/26/2007 09/06/2017 Tobacco use disorder 06/09/2007 09/06/2017 documented as of this encounter (statuses as of 12/12/2021) [facility] of Past illness Narrative* Problem Noted Date Resolved Date LLQ pain 10/10/2015 09/06/2017 Irritable bowel syndrome with diarrhea 6 09/06/2017 Acne 12/03/2011 09/06/2017 COPD (chronic obstructive pu lmonary disease) with chronic bronchitis 11/12/2011 08/22/2014 Anxiety 08/07/2010 09/06/2017 Acute unilateral obstructive uropathy 08/07/2010 09/06/2017 Colitis 10/31/2009 09/06/2017 Shortness of breath 12/26/2007 09/06/2017 Tobacco use disorder 06/09/2007 09/06/2017 documented as of this encounter (statuses as of 12/31/2021) [facility] of Past illness Narrative* Problem Noted Date Resolved Date LLQ pain 10/10/2015 09/06/2017 Irritable bowel syndrome with diarrhea 6 09/06/2017 Acne 12/03/2011 09/06/2017 COPD (chronic obstructive pu lmonary disease) with chronic bronchitis 11/12/2011 08/22/2014 Anxiety 08/07/2010 09/06/2017 Acute unilateral obstructive uropathy 08/07/2010 09/06/2017 Colitis 10/31/2009 09/06/2017 Shortness of breath 12/26/2007 09/06/2017 Tobacco use disorder 06/09/2007 09/06/2017 documented as of this encounter (statuses as of 01/20/2022) [facility] Past illness Narrative* Problem Noted Date Resolved Date LLQ pain 10/10/2015 09/06/2017 Irritable bowel syndrome with diarrhea 6 09/06/2017 Acne 12/03/2011 09/06/2017 COPD (chronic obstructive pu lmonary disease) with chronic bronchitis 11/12/2011 08/22/2014 Anxiety 08/07/2010 09/06/2017 Acute unilateral obstructive uropathy 08/07/2010 09/06/2017 Colitis 10/31/2009 09/06/2017 Shortness of breath 12/26/2007 09/06/2017 Tobacco use disorder 06/09/2007 09/06/2017 documented as of this encounter (statuses as of 01/30/2022) [facility] Past illness Narrative* Problem Noted Date Resolved Date LLQ pain 10/10/2015 09/06/2017 Irritable bowel syndrome with diarrhea 6 09/06/2017 Acne 12/03/2011 09/06/2017 COPD (chronic obstructive pu lmonary disease) with chronic bronchitis 11/12/2011 08/22/2014 Anxiety 08/07/2010 09/06/2017 Acute unilateral obstructive uropathy 08/07/2010 09/06/2017 Colitis 10/31/2009 09/06/2017 Shortness of breath 12/26/2007 09/06/2017 Tobacco use disorder 06/09/2007 09/06/2017 documented as of this encounter (statuses as of 02/02/2022) [facility] illness Narrative* Problem Noted Date Resolved Date LLQ pain 10/10/2015 09/06/2017 Irritable bowel syndrome with diarrhea 6 09/06/2017 Acne 12/03/2011 09/06/2017 COPD (chronic obstructive pu lmonary disease) with chronic bronchitis 11/12/2011 08/22/2014 Anxiety 08/07/2010 09/06/2017 Acute unilateral obstructive uropathy 08/07/2010 09/06/2017 Colitis 10/31/2009 09/06/2017 Shortness of breath 12/26/2007 09/06/2017 Tobacco use disorder 06/09/2007 09/06/2017 documented as of this encounter (statuses as of 02/03/2022) [facility] illness Narrative* Problem Noted Date Resolved Date LLQ pain 10/10/2015 09/06/2017 Irritable bowel syndrome with diarrhea 6 09/06/2017 Acne 12/03/2011 09/06/2017 COPD (chronic obstructive pu lmonary disease) with chronic bronchitis 11/12/2011 08/22/2014 Anxiety 08/07/2010 09/06/2017 Acute unilateral obstructive uropathy 08/07/2010 09/06/2017 Colitis 10/31/2009 09/06/2017 Shortness of breath 12/26/2007 09/06/2017 Tobacco use disorder 06/09/2007 09/06/2017 documented as of this encounter (statuses as of 04/02/2022) [facility] Narrative* Problem Noted Date Resolved Date LLQ pain 10/10/2015 09/06/2017 Irritable bowel syndrome with diarrhea 6 09/06/2017 Acne 12/03/2011 09/06/2017 COPD (chronic obstructive pu lmonary disease) with chronic bronchitis 11/12/2011 08/22/2014 Anxiety 08/07/2010 09/06/2017 Acute unilateral obstructive uropathy 08/07/2010 09/06/2017 Colitis 10/31/2009 09/06/2017 Shortness of breath 12/26/2007 09/06/2017 Tobacco use disorder 06/09/2007 09/06/2017 documented as of this encounter (statuses as of 05/18/2022) [facility] Narrative* Problem Noted Date Resolved Date LLQ pain 10/10/2015 09/06/2017 Irritable bowel syndrome with diarrhea 6 09/06/2017 Acne 12/03/2011 09/06/2017 COPD (chronic obstructive pu lmonary disease) with chronic bronchitis 11/12/2011 08/22/2014 Anxiety 08/07/2010 09/06/2017 Acute unilateral obstructive uropathy 08/07/2010 09/06/2017 Colitis 10/31/2009 09/06/2017 Shortness of breath 12/26/2007 09/06/2017 Tobacco use disorder 06/09/2007 09/06/2017 documented as of this encounter (statuses as of 07/04/2022) [facility] Narrative* Problem Noted Date Resolved Date LLQ pain 10/10/2015 09/06/2017 Irritable bowel syndrome with diarrhea 6 09/06/2017 Acne 12/03/2011 09/06/2017 COPD (chronic obstructive pu lmonary disease) with chronic bronchitis 11/12/2011 08/22/2014 Anxiety 08/07/2010 09/06/2017 Acute unilateral obstructive uropathy 08/07/2010 09/06/2017 Colitis 10/31/2009 09/06/2017 Shortness of breath 12/26/2007 09/06/2017 Tobacco use disorder 06/09/2007 09/06/2017 documented as of this encounter (statuses as of 07/14/2022) [facility] Narrative* Problem Noted Date Resolved Date LLQ pain 10/10/2015 09/06/2017 Irritable bowel syndrome with diarrhea 6 09/06/2017 Acne 12/03/2011 09/06/2017 COPD (chronic obstructive pu lmonary disease) with chronic bronchitis 11/12/2011 08/22/2014 Anxiety 08/07/2010 09/06/2017 Acute unilateral obstructive uropathy 08/07/2010 09/06/2017 Colitis 10/31/2009 09/06/2017 Shortness of breath 12/26/2007 09/06/2017 Tobacco use disorder 06/09/2007 09/06/2017 documented as of this encounter (statuses as of 07/31/2022) [facility] Narrative* Problem Noted Date Resolved Date LLQ pain 10/10/2015 09/06/2017 Irritable bowel syndrome with diarrhea 6 09/06/2017 Acne 12/03/2011 09/06/2017 COPD (chronic obstructive pu lmonary disease) with chronic bronchitis 11/12/2011 08/22/2014 Anxiety 08/07/2010 09/06/2017 Acute unilateral obstructive uropathy 08/07/2010 09/06/2017 Colitis 10/31/2009 09/06/2017 Shortness of breath 12/26/2007 09/06/2017 Tobacco use disorder 06/09/2007 09/06/2017 documented as of this encounter (statuses as of 08/27/2022) [facility] Narrative* Problem Noted Date Resolved Date LLQ pain 10/10/2015 09/06/2017 Irritable bowel syndrome with diarrhea 6 09/06/2017 Acne 12/03/2011 09/06/2017 COPD (chronic obstructive pu lmonary disease) with chronic bronchitis 11/12/2011 08/22/2014 Anxiety 08/07/2010 09/06/2017 Acute unilateral obstructive uropathy 08/07/2010 09/06/2017 Colitis 10/31/2009 09/06/2017 Shortness of breath 12/26/2007 09/06/2017 Tobacco use disorder 06/09/2007 09/06/2017 documented as of this encounter (statuses as of 09/10/2022) [facility]ative* Problem Noted Date Diagnosed Date Resolved Date LLQ pain 10/10/2015 09/06/2017 Irritable bowel syndrome with diarrhea 09/19/2015 09/06/2017 Acne 12/03/2011 09/06/2017 COPD (chronic obstructive pu lmonary disease) with chronic bronchitis 11/12/2011 08/22/2014 Anxiety 08/07/2010 09/06/2017 Acute unilateral obstructive uropathy 08/07/2010 09/06/2017 Colitis 10/31/2009 09/06/2017 Shortness of breath 12/26/2007 09/07/19 18 Tobacco use disorder 06/09/2007 018 documented as of this encounter (statuses as of 02/12/2023) [facility] Narrative* Problem Noted Date Diagnosed Date Resolved Date LLQ pain 10/10/2015 09/06/2017 Irritable bowel syndrome with diarrhea 09/19/2015 09/06/2017 Acne 12/03/2011 09/06/2017 COPD (chronic obstructive pu lmonary disease) with chronic bronchitis 11/12/2011 08/22/2014 Anxiety 08/07/2010 09/06/2017 Acute unilateral obstructive uropathy 08/07/2010 09/06/2017 Colitis 10/31/2009 09/06/2017 Shortness of breath 12/26/2007 09/07/19 18 Tobacco use disorder 06/09/2007 018 documented as of this encounter (statuses as of 02/12/2023) [facility] Narrative* Problem Noted Date Diagnosed Date Resolved Date LLQ pain 10/10/2015 09/06/2017 Irritable bowel syndrome with diarrhea 09/19/2015 09/06/2017 Acne 12/03/2011 09/06/2017 COPD (chronic obstructive pu lmonary disease) with chronic bronchitis 11/12/2011 08/22/2014 Anxiety 08/07/2010 09/06/2017 Acute unilateral obstructive uropathy 08/07/2010 09/06/2017 Colitis 10/31/2009 09/06/2017 Shortness of breath 12/26/2007 09/07/19 18 Tobacco use disorder 06/09/2007 018 documented as of this encounter (statuses as of 02/22/2023) [facility] Diagnosis Burning with urination- Primary Dysuria [facility] Diagnosis Anxiety neurosis- Primary Anxiety state, unspecified [facility] Diagnosis Acute UTI- Primary Urinary tract infection, site not specified Nausea Nausea alone [facility] Diagnosis Urinary frequency- Primary [facility] Urinary frequency [facility] Diagnosis Burning with urination- Primary Dysuria [facility] Diagnosis Heart palpitations- Primary Palpitations Injury of head, initial encounter [facility] Diagnosis Precordial pain- Primary Kidney stone Calculus of kidney Hydroureter on left Hydroureter Hydronephrosis of left kidney Hydronephrosis [facility] Diagnosis Adjustment disorder with depressed mood Anxiety neurosis Anxiety state, unspecified [facility] Diagnosis Sore throat- Primary Acute pharyngitis [facility] Diagnosis Urinary frequency- Primary documented in [facility] Diagnosis Encounter for screening mammogram for breast cancer [facility] Diagnosis Adjustment disorder with depressed mood Anxiety neurosis Anxiety state, unspecified documented in this encounter [facility] note* Diagnosis Diarrhea, unspecified type- Primary documented in this encounter [facility] note* Diagnosis Hyperlipidemia, mixed- Primary Mixed hyperlipidemia Aortic stenosis, mild Aortic valve disorders Chronic progressive renal failure, stage 3 (moderate) (HCC) Atrophy of left kidney Renal sclerosis, unspecified RLS (restless legs syndrome) Restless legs syndrome (RLS) Myofascial pain Mylagia and myositis, unspecified Vitamin B12 deficiency Other B-complex deficiencies Iron deficiency anemia due to chronic blood loss Iron deficiency anemia secondary to blood loss (chronic) Gastroesophageal reflux disease, unspecified whether esophagitis present Anxiety neurosis Anxiety state, unspecified Adjustment disorder with depressed mood Current use of proton pump inhibitor Encounter for long-term (current) use of other medications Screening for cervical cancer Screening for malignant neoplasm of the cervix Screening for colorectal cancer Special screening for malignant neoplasms, colon documented in this encounter [facility] note* Diagnosis Gastroesophageal reflux disease, unspecified whether esophagitis present [facility] Diagnosis Abnormality of abdominal aorta- Primary Aortic stenosis, mild Aortic valve disorders Anxiety neurosis Anxiety state, unspecified Adjustment disorder with depressed mood Diarrhea of presumed infectious origin Acute upper respiratory infection Acute upper respiratory infections of unspecified site [facility]ative[facility] Diagnostic Procedure Only (Routine) - Pending Review Specialty Diagnoses / Procedures Referred By Colton thompson Referred To Contact [facility] Diagnoses Encounter for screening mammogram for breast cancer Procedures [place] SCREENING SCREENING MAMMOGRAPHY BI 2-VIEW BREAST INC CAD Carol Gonzalez PA-C [address] [place] [address] [facility] [address] [place] [address] Referral ID Status Reason Start Date Expiration Date Visits Requested Visits Authorized [id number] Pending Review Auto-Generat ed Referral 05/13/2022 06/12/2023 1 1 [facility] Reason for Referral Specialty Diagnoses / Procedures Referred By Colton thompson Referred To Contact Urology Diagnoses Kidney stone Procedures CONSULT TO UROLOGY OFFICE/OUTPATIENT [facility] MDM 60-74 MINUTES Carol Gonzalez PA-C [address] [place] [address] Referral ID Status Reason Start Date Expiration Date Visits Requested Visits Authorized [id number] Authorized PCP Requested Referral 12/11/2021 12/11/2022 1 1 Specialty Diagnoses / Procedures Referred By Contac t Referred To Contact [facility] Diagnoses Precordial pain Procedures ECHO ECHO TTHRC R-T 2D W/WOM-MODE COMPL SPEC&COLR D Carol Gonzalez PA-C [address] [place] [address] [facility] [place] [address] [place], [place] [id number] Referral ID Status Reason Start Date Expiration Date Visits Requested Visits Authorized [id number] Authorized Auto-Generat ed Referral 12/11/2021 12/11/2022 1 1 Specialty Diagnoses / Procedures Referred By Contac t Referred To Contact [facility] Diagnoses Precordial pain Procedures NM CARDIAC PERF STRESS/PHARM MYOCARDIAL SPECT MULTIPLE STUDIES Carol Gonzalez PA-C [address] [place] [address] [facility] [address] [place] [address] Referral ID Status Reason Start Date Expiration Date Visits Requested Visits Authorized [id number] Authorized Auto-Generat ed Referral 12/11/2021 01/10/2023 1 1 Specialty Diagnoses / Procedures Referred By Contac t Referred To Contact Gynecology Diagnoses Screening for cervical cancer Procedures CONSULT TO GYNECOLOGY OFFICE/OUTPATIENT [facility] MDM 60-74 MINUTES Carol Gonzalez PA-C [address] [place] [address] Referral ID Status Reason Start Date Expiration Date Visits Requested Visits Authorized [id number] Pending Review PCP Requested Referral Auto-Generate d Referral 07/30/2022 07/30/2023 1 1 Specialty Diagnoses / Procedures Referred By Contac t Referred To Contact Vascular Surgery Diagnoses Abnormality of abdominal aorta Procedures CONSULT TO VASCULAR SURGERY OFFICE/OUTPATIENT [facility] MDM 60-74 MINUTES Carol Gonzalez PA-C [address] [place] [address] Referral ID Status Reason Start Date Expiration Date Visits Requested Visits Authorized [id number] Pending Review PCP Requested Referral 3 02/10/2024 1 1 Health Concerns Infection Onset Date Last Indicated Resolved Time COVID-19 Rule-Out 02/02/2022 02/02/2022 Infection Onset Date Last Indicated Resolved Time COVID-19 Rule-Out 02/02/2022 02/02/2022 02/03/2022 5:20 AM EST Summary Purpose Family History No Family History Records Found Advance Directives No Advanced Directives Records Found Additional Source Comments Source Comments (unrecognize d section and content) In the event this informatio n is protected by the Federal Confidentiality of Alcohol and Drug Abuse Patient Records regulations: The Federal rules restrict any use of the information to criminally investigate or prosecute any alcohol or drug abuse patient.[facility] the event this information is protected by the Federal Confidentiality of Alcohol and Drug Abuse Patient Records regulations: The Federal rules restrict any use of the information to criminally investigate or prosecute any alcohol or drug abuse patient.[facility] Hospital[facility] the event this information is protected by the Federal Confidentiality of Alcohol and Drug Abuse Patient Records regulations: The Federal rules restrict any use of the information to criminally investigate or prosecute any alcohol or drug abuse patient.[facility] Hospital[facility] the event this information is protected by the Federal Confidentiality of Alcohol and Drug Abuse Patient Records regulations: The Federal rules restrict any use of the information to criminally investigate or prosecute any alcohol or drug abuse patient.[facility] Hospital[facility] the event this information is protected by the Federal Confidentiality of Alcohol and Drug Abuse Patient Records regulations: The Federal rules restrict any use of the information to criminally investigate or prosecute any alcohol or drug abuse patient.[facility] HospitalIn the event this information is protected by the Federal Confidentiality of Alcohol and Drug Abuse Patient Records regulations: The Federal rules restrict any use of the information to criminally investigate or prosecute any alcohol or drug abuse patient.[facility] HospitalIn the event this information is protected by the Federal Confidentiality of Alcohol and Drug Abuse Patient Records regulations: The Federal rules restrict any use of the information to criminally investigate or prosecute any alcohol or drug abuse patient.[facility] HospitalIn the event this information is protected by the Federal Confidentiality of Alcohol and Drug Abuse Patient Records regulations: The Federal rules restrict any use of the information to criminally investigate or prosecute any alcohol or drug abuse patient.[facility] HospitalIn the event this information is protected by the Federal Confidentiality of Alcohol and Drug Abuse Patient Records regulations: The Federal rules restrict any use of the information to criminally investigate or prosecute any alcohol or drug abuse patient.[facility] HospitalIn the event this information is protected by the Federal Confidentiality of Alcohol and Drug Abuse Patient Records regulations: The Federal rules restrict any use of the information to criminally investigate or prosecute any alcohol or drug abuse patient.[facility] HospitalIn the event this information is protected by the Federal Confidentiality of Alcohol and Drug Abuse Patient Records regulations: The Federal rules restrict any use of the information to criminally investigate or prosecute any alcohol or drug abuse patient.[facility] HospitalIn the event this information is protected by the Federal Confidentiality of Alcohol and Drug Abuse Patient Records regulations: The Federal rules restrict any use of the information to criminally investigate or prosecute any alcohol or drug abuse patient.[facility] HospitalIn the event this information is protected by the Federal Confidentiality of Alcohol and Drug Abuse Patient Records regulations: The Federal rules restrict any use of the information to criminally investigate or prosecute any alcohol or drug abuse patient.[facility] HospitalIn the event this information is protected by the Federal Confidentiality of Alcohol and Drug Abuse Patient Records regulations: The Federal rules restrict any use of the information to criminally investigate or prosecute any alcohol or drug abuse patient.[facility] HospitalIn the event this information is protected by the Federal Confidentiality of Alcohol and Drug Abuse Patient Records regulations: The Federal rules restrict any use of the information to criminally investigate or prosecute any alcohol or drug abuse patient.[facility] HospitalIn the event this information is protected by the Federal Confidentiality of Alcohol and Drug Abuse Patient Records regulations: The Federal rules restrict any use of the information to criminally investigate or prosecute any alcohol or drug abuse patient.[facility] HospitalIn the event this information is protected by the Federal Confidentiality of Alcohol and Drug Abuse Patient Records regulations: The Federal rules restrict any use of the information to criminally investigate or prosecute any alcohol or drug abuse patient.[facility] HospitalIn the event this information is protected by the Federal Confidentiality of Alcohol and Drug Abuse Patient Records regulations: The Federal rules restrict any use of the information to criminally investigate or prosecute any alcohol or drug abuse patient.[facility] HospitalIn the event this information is protected by the Federal Confidentiality of Alcohol and Drug Abuse Patient Records regulations: The Federal rules restrict any use of the information to criminally investigate or prosecute any alcohol or drug abuse patient.[facility] HospitalIn the event this information is protected by the Federal Confidentiality of Alcohol and Drug Abuse Patient Records regulations: The Federal rules restrict any use of the information to criminally investigate or prosecute any alcohol or drug abuse patient.[facility] HospitalIn the event this information is protected by the Federal Confidentiality of Alcohol and Drug Abuse Patient Records regulations: The Federal rules restrict any use of the information to criminally investigate or prosecute any alcohol or drug abuse patient.[facility] HospitalIn the event this information is protected by the Federal Confidentiality of Alcohol and Drug Abuse Patient Records regulations: The Federal rules restrict any use of the information to criminally investigate or prosecute any alcohol or drug abuse patient.[facility] HospitalIn the event this information is protected by the Federal Confidentiality of Alcohol and Drug Abuse Patient Records regulations: The Federal rules restrict any use of the information to criminally investigate or prosecute any alcohol or drug abuse patient.[facility] HospitalIn the event this information is protected by the Federal Confidentiality of Alcohol and Drug Abuse Patient Records regulations: The Federal rules restrict any use of the information to criminally investigate or prosecute any alcohol or drug abuse patient.[facility] HospitalIn the event this information is protected by the Federal Confidentiality of Alcohol and Drug Abuse Patient Records regulations: The Federal rules restrict any use of the information to criminally investigate or prosecute any alcohol or drug abuse patient.[facility] Reason for Visit (unrecogniz ed section and content) Reason Comments Results Reason Comments Pelvic Pain cramping and nausea x 1 month, had uti a month ago Reason Comments Urinary Frequency painful urination x1 .5 months Reason Comments Urinary Frequency pain with urination x 4-5 days Reason Comments UTI frequency and burnin g with urination x 3 days Reason Onset Date Comments Outpatient Colonoscopy 10/13/2021 Reason Comments ED Follow-up Symptomatic PVC's, P alpitations, Atypical Chest Pain- [facility] 11/26/21Thuandnraymundo Stone on Left Reason Onset Date Comments Refill Request 12/30/2021 Reason Onset Date Comments Refill Request 01/28/2022 Reason Comments Sore Throat Cough, chest congest ion, mouth feels inflamed, chills, body aches x 2 days Reason Comments Urinary Frequency With painful urinati on x3 days Reason Comments Refill Request Reason Comments Diarrhea nausea, bloating x 4 days Reason Comments Follow Up Reason Comments 6 Month Exam Diarrhea 5 days Sinusitis Reason Comments [facility] Teams (unrecognized sec tion and content) 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 Relationship Specialty Start Date End Date Carol Gonzalez PA-C [address] [place] [address] PCP - General Family Practice 09/06/17 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 Relationship Specialty Start Date End Date Carol Gonzalez PA-C [address] [place] [address] PCP - General Family Practice 09/06/17 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 Relationship Specialty Start Date End Date Carol Gonzalez PA-C [address] [place] [address] PCP - General Family Practice 09/06/17 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 Relationship Specialty Start Date End Date Carol Gonzalez PA-C [address] [place] [address] PCP - General Family Practice 09/06/17 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 Relationship Specialty Start Date End Date Carol Gonzalez PA-C [address] [place] [address] PCP - General Family Practice 09/06/17 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 Relationship Specialty Start Date End Date Carol Gonzalez PA-C [address] [place] [address] PCP - General Family Practice 09/06/17 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 Relationship Specialty Start Date End Date Carol Gonzalez PA-C [address] [place] [address] PCP - General Family Practice 09/06/17 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 Relationship Specialty Start Date End Date Carol Gonzalez PA-C [address] [place] [address] PCP - General Family Practice 09/06/17 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 Relationship Specialty Start Date End Date Carol Gonzalez PA-C [address] [place] [address] PCP - General Family Medicine 09/06/17 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 Relationship Specialty Start Date End Date Carol Gonzalez PA-C [address] [place] [address] PCP - General Family Medicine 09/06/17 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 Relationship Specialty Start Date End Date Carol Gonzalez PA-C [address] [place] [address] PCP - General Family Medicine 09/06/17 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 Relationship Specialty Start Date End Date Carol Gonzalez PA-C [address] [place] [address] PCP - General Family Medicine 09/06/17 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 Relationship Specialty Start Date End Date Carol Gonzalez PA-C [address] [place] [address] PCP - General Family Medicine 09/06/17 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 Relationship Specialty Start Date End Date Carol Gonzalez PA-C [address] [place] [address] PCP - General Family Medicine 09/06/17 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 Relationship Specialty Start Date End Date Carol Gonzalez PA-C [address] [place] [address] PCP - General Family Medicine 09/06/17 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 Relationship Specialty Start Date End Date Carol Gonzalez PA-C [address] [place] [address] PCP - General Family Medicine 09/06/17 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 Relationship Specialty Start Date End Date Carol Gonzalez PA-C [address] [place] [address] PCP - General Family Medicine 09/06/17 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 Relationship Specialty Start Date End Date Carol Gonzalez PA-C [address] [place] [address] PCP - General Family Medicine 09/06/17 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 Relationship Specialty Start Date End Date Carol Gonzalez PA-C [address] [place] [address] PCP - General Family Medicine 09/06/17 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 Relationship Specialty Start Date End Date Carol Gonzalez PA-C [address] [place] [address] PCP - General Family Medicine 09/06/17 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 Relationship Specialty Start Date End Date Carol Gonzalez PA-C [address] [place] [address] PCP - General Family Medicine 09/06/17 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 Relationship Specialty Start Date End Date Carol Gonzalez PA-C [address] [place] [address] PCP - General Family Medicine 09/06/17 INFORMATION SOURCE (unrecogn ized section and content) FOR RECORDS PERTAINING TO PATIENTS WHO ARE OR HAVE BEEN ENROLLED IN A CHEMICAL DEPENDENCY/SUBSTANCEABUSE PROGRAM, SOME INFORMATION MAY BE OMITTED. This clinical summary was aggregated from multiple sources. Caution should be exercised in using it in the provision of clinical care. This summary normalizes information from multiple sources, and as a consequence, information in this document may materially change the coding, format and clinical context of patient data. In addition, data may be omitted in some cases. CLINICAL DECISIONS SHOULD BE BASED ON THE PRIMARY CLINICAL RECORDS. [facility] [employer] [facility]. provides no warranty or guarantee of the accuracy or completeness of information in this document.
== END 2023-04-26 20:21 | disposition left against medical advice (07) ==
LOC: ED 20:25
PROVIDERS: PCP Physician Assistant
DX: Z53.21 Procedure and treatment not carried out due to patient leaving prior to being seen by health care provider (principal)

== ENCOUNTER 2023-09-02 17:07 | Emergency (ER) | payer MEDICAID, SELFPAY ==
[2023-09-02 17:07] VITALS: BP 127/79; PULSE 95; RESP 14; TEMP 37.2; O2SAT 98; BMI 26.6
--- NOTE | 2023-09-02 17:49 | ED.VIS.BACK ---
HPI History of Present Illness Chief Complaint: Back Informant: patient Onset/Context/Timing Onset: Days (4 days) Context: Gradual Onset Timing: Waxes and wanes Quality: Aching Location: Lumbar Narrative Narrative: Patient presents secondary to back pain. She reports back pain for the past 4 days with no specific injury. She does do a lot of lifting and her every day activities but does not remember anything where she hurt her back. Pain does not radiate down her legs. It does wrap around her lower back to her hip area. She states she initially had some mild anterior abdominal pain but that is completely resolved. She is a history of kidney stones as well as diverticulitis but does not believe this feels similar. Patient has been taking ibuprofen every 4-6 hours. [facility] Medical History Diverticulosis Kidney stones GERD (gastroesophageal reflux disease) Anxiety Depression Home Medications ?Medication ?Instructions ?Recorded ?Last Taken ?Type citalopram 20 mg tablet 40 mg PO DAILY depression 06/05/13 04/30/18 10:00 History Omeprazole [Prilosec] 40 mg PO BID gerd 09/26/14 04/30/18 10:00 History clonazepam 0.5 mg tablet (Klonopin) 0.25 mg PO PRN PRN Anxiety 09/06/17 04/30/18 22:00 History sulfamethoxazole 800 0.5 tab (1/2 x 800-160 mg) PO BID 06/22/22 Unknown Rx mg-trimethoprim 160 mg tablet #20 TABLETS ciprofloxacin HCl 500 mg tablet 500 mg PO BID #20 tabs 02/24/23 Unknown Rx (Cipro) metronidazole 500 mg tablet 500 mg PO TID #30 tabs 02/24/23 Unknown Rx cyclobenzaprine 10 mg tablet 10 mg PO TID PRN Muscle Spasm #20 09/02/23 Unknown Rx TABLETS Allergy/AdvReac Type Severity Reaction Status Date / Time Egg Derived AdvReac Nausea/Vom/ Verified 09/02/23 17:07 Diarrhea prednisone AdvReac Other Verified 09/02/23 17:07 Surgical History History of cholecystectomy Social History household members: none Smoking Status: Current every day smoker tobacco type: e-cigarettes substance use type: does not use ROS ROS ED Constitutional Constitutional ED: Denies chills or fever(s) Eyes Eyes: Denies change in vision ENT ENT ED: Denies rhinorrhea or sore throat Cardiovascular Cardiovascular: Denies chest pain Respiratory/Chest Respiratory/Chest: Denies cough or dyspnea Gastrointestinal Gastrointestinal: Denies abdominal pain, nausea or vomiting Genitourinary Genitourinary ED: Denies dysuria, hematuria or urinary frequency Musculoskeletal Musculoskeletal: Reports back pain; Denies extremity pain Integumentary Denies Abrasions or rash Neurologic Neurologic: Denies headache(s) or weakness Psychiatric Psychiatric: Denies anxiety or depression Allergic/Immunologic Allergic/Immunologic ED: Denies lip swelling or urticaria EXAM Physical Exam Const Vital Signs: 09/02/23 17:07 Temperature 98.9 F Temperature Source Temporal Pulse Rate 95 Respiratory Rate 14 Blood Pressure 127/79 H Blood Pressure Mean 95 Pulse Ox 98 Oxygen Delivery Method Room Air Positive well nourished and well developed General Appearance ED: well developed HEENT Reports moist mucous membranes Eyes EOMs intact bilaterally Resp normal respiratory effort and clear to auscultation bilaterally Cardio regular rate and regular rhythm GI soft to palpation and non-tender Back/Spine Back/Spine Narrative: Bilateral lumbar paraspinal tenderness. No erythema or overlying skin change. Extremity normal to inspection Neuro oriented x3 and no sensory deficits noted Motor Exam: strength 5/5 throughout Psych mental status grossly normal Skin no rashes or lesions noted MDM MDM MDM Narrative Medical decision making narrative: Patient will be given Tylenol and a Lidoderm patch here. She has been taking ibuprofen regularly and did drive herself to the emergency room. Urinalysis will be obtained to evaluate for any evidence of hematuria or infection. Lab Data Labs: Laboratory Results - last 24 hr 09/02/23 18:40 Urine Color Yellow Urine Clarity Clear Urine pH 6.0 Ur Specific [place] 1.015 Urine Protein 30 H Urine Glucose (UA) Normal Urine Ketones 5 H Urine Occult Blood Negative Urine Nitrite Negative Urine Bilirubin 1 H Urine Urobilinogen 4 H Ur Leukocyte Esterase 25 H Urine RBC 0 SEEN Urine WBC 0 SEEN Ur Squamous Epith Cells 0 SEEN Urine Bacteria 0 SEEN Urine Mucus 0 SEEN Treatment and Re-Evaluation Narrative: Urinalysis reveals no evidence of infection. No hematuria. On repeat evaluation she does feel improved. She will continue Tylenol and ibuprofen as needed for pain. She will get Lidoderm patches [id number]. I will write her a short course of muscle relaxer that she can use. She was advised that these can cause some sedation and to be cautious with them. Return instructions given. Discharge Plan Triage Chief Complaint: Back ED Provider: Effie Castillo Dx/Rx/DC Orders Clinical Impression: Back strain, Muscle spasm Instructions: ED Back Sprain/Strain, ED Muscle Spasm Prescriptions: New cyclobenzaprine 10 mg tablet 10 mg PO TID PRN (Reason: Muscle Spasm) Qty: 20 0RF No Action citalopram 20 MG tablet 40 mg PO DAILY Patient Comments: depression Omeprazole [Prilosec] 40 MG capsule 40 mg PO BID Patient Comments: HEART BURN clonazepam [Klonopin] 0.5 MG tablet 0.25 mg PO PRN PRN (Reason: Anxiety) sulfamethoxazole-trimethoprim [sulfamethoxazole-trimethoprim] 800-160 mg tablet 0.5 tab PO BID Qty: 20 0RF metronidazole 500 mg tablet 500 mg PO TID Qty: 30 0RF ciprofloxacin HCl [Cipro] 500 mg tablet 500 mg PO BID Qty: 20 0RF Primary Care Provider: Carol Gonzalez Referrals: Carol Gonzalez, PA [Primary Care Provider] - 1 Week if not improving Print Language: Citizen Of [place] Disposition Disposition: Home, Self Care
[2023-09-02] MEDS: Lidocaine 5% Patch 1 PATCH TOPICAL (18:37)
[2023-09-02] MEDS: Acetaminophen 500 MG Tablet 1000 MG PO (18:37)
[2023-09-02 18:56] LABS: Bacteria 0 SEEN /hpf (None Seen); Mucous, Urine 0 SEEN /hpf (<or=2+); Red Blood Cells-Urine 0 SEEN /hpf (0-5); Squamous Epithelial Cells - UA 0 SEEN /hpf (5-10); White Blood Cells 0 SEEN /hpf (0-5)
[2023-09-02 19:13] LABS: Color, Urine Yellow (Yellow); Glucose, Dipstick Normal (Normal); Ketone-Dipstick 5 mg/dl (Negative); Leukocyte Esterase-Dipstick 25 /ul (Negative); Nitrite-Dipstick Negative (Negative); Occult Blood-Urine Negative /ul (Negative); Protein-Dipstick 30 mg/dl (Negative); Specific Gravity, Urine 1.015 (1.002-1.030); Urine Clarity Clear (Clear); Urine Urobilinogen 4 mg/dl (Normal)
[2023-09-02 19:23] LABS: Urine Bilirubin Dipstick 1 mg/dL (Negative)
[2023-09-02 19:45] VITALS: BP 140/71; PULSE 79; RESP 16; TEMP 36.7; O2SAT 99
== END 2023-09-02 19:45 | disposition home or self-care (01) ==
PROVIDERS: Emergency Provider Emergency Medicine; PCP Physician Assistant; Visit Provider Emergency Medicine
DX: S39.012A Strain of muscle, fascia and tendon of lower back, initial encounter (principal); M62.838 Other muscle spasm; F17.290 Nicotine dependence, other tobacco product, uncomplicated; K21.9 Gastro-esophageal reflux disease without esophagitis; X58.XXXA Exposure to other specified factors, initial encounter
CPT/HCPCS: 81001; 99282

== ENCOUNTER → 2024-08-25 | Outpatient (CLI) | payer MEDICAID, SELFPAY ==
--- NOTE | 2024-08-25 14:20 | CT_ITS ---
PROCEDURE: CT ABD/PELVIS W/WO CONTRAST 08/25/2024 REASON FOR EXAM: RENAL MASS/ DISORDER OF KIDNEY/URETER TECHNIQUE: Abdomen and pelvis CT before and following intravenous contrast. Coronal and Sagittal reconstruction series were provided. One or more dose reduction techniques were used (e.g., Automated exposure control, adjustment of the mA and/or kV according to patient size, use of iterative reconstruction technique Study performed without and with 100 cc of Isovue 370. Images obtained in the multiphasic fashion FINDINGS: There is a fat containing lesion in the lower pole of the right kidney compatible with an angiomyolipoma. No hydronephrosis. No renal calculi. Prior cholecystectomy. There is a hyperdense mass in the lower pole of the left kidney which measures about 2 Hounsfield units. On venous phase imaging, this measures 5 Hounsfield units average. On delayed imaging, there is no enhancement. Normal pancreas. Normal bowel. No free-fluid. No free air. No bowel obstruction. 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 Nonenhancing cyst on the left. No solid masses. OVERALL FINAL ASSESSMENT: . LI-RADS is not meant to be used in patients <18 years or patients with cirrhosi s due to congenital hepatic fibrosis or due to vascular disorders, because these patients have a lower chance of developing HC C. Reading Location: [facility]
[2024-08-25 14:37] LABS: CREATININE FINGERSTICK 1.2 mg/dL (0.55-1.02)
== END | disposition home or self-care (01) ==
LOC: CT 14:04
PROVIDERS: PCP Physician Assistant; Referring Provider Family Medicine; Visit Provider Family Medicine
DX: N28.89 Other specified disorders of kidney and ureter (principal)
CPT/HCPCS: 74178; Q9967

== ENCOUNTER 2025-01-14 08:09 | Emergency (ER) | payer MEDICAID, SELFPAY ==
[2025-01-14 08:10] VITALS: BP 164/80; PULSE 72; RESP 18; TEMP 36.9; O2SAT 99; BMI 23.3
--- NOTE | 2025-01-14 08:28 | CT_ITS ---
PROCEDURE: ABDOMEN/PELVIS W IV CONT ONLY N/A REASON FOR EXAM: LLQ ABDOMINAL PAIN TECHNIQUE: Procedure Code: [id number] Modality: CT Procedure: ABDOMEN/PELVIS W IV CONT ONLY Coronal and Sagittal reconstruction series were provided. CONTRAST: Isovue 370 VOLUME: 9 7 mL One or more dose reduction techniques were used (e.g., Automated exposure control, adjustment of the mA and/or kV according to patient size, use of iterative reconstruction technique. RADIATION DOSE SUMMARY: CTDlvol: 17.61 mGy DLP: 928.52 mGycm COMPARISON: CT abdomen and pelvis 08/25/2024. FINDINGS: Lung bases: Clear. A 5 x 6.5 cm slightly hiatal hernia. Liver: Unremarkable. Gallbladder: Status post cholecystectomy with post cholecystectomy biliary dilation. Spleen: Unremarkable. Pancreas: Unremarkable. Adrenals: Unremarkable. Kidneys: No hydronephrosis. No nephrolithiasis. A 1.5 cm angiomyolipoma at the lower pole of the right kidney. Bilateral simple cysts with the largest measures 1.5 cm at the lower pole of the right kidney. The left kidney is small. No hydronephrosis. Bladder: Unremarkable. Reproductive Organs: Unremarkable. Bowel: No bowel obstruction. Colonic diverticulosis. Sigmoid colon wall thickening with pericolic fat stranding consistent with acute diverticulitis. Appendix: Normal. Lymph nodes: No lymphadenopathy. Vasculature: No aneurysm. No dissection. Peritoneum / Retroperitoneum: No free air or free fluid. Bones: No acute bony abnormalities. CT/Abdomen/Pelvis W IV Cont ONLY IMPRESSION: Sigmoid colon diverticulitis. No abscess. Reading Location: [facility]
--- NOTE | 2025-01-14 08:28 | ED.VIS.GI ---
HPI HPI - GI History of Present Illness Chief Complaint: Abd Pain Detail of Chief Complaint: Abdominal pain Informant: patient Narrative Narrative: Patient presents with abdominal pain and sore yesterday evening. Patient states the pain is left lower abdomen. She denies nausea or vomiting. She said some mild dysuria. Last bowel movement was last evening. She denies blood in her stool or black tarry stool. Patient does have history of diverticulitis. She took her temperature at home and it was 99. PFSH PFSH Medical History Diverticulosis Kidney stones GERD (gastroesophageal reflux disease) Anxiety Depression Home Medications ?Medication ?Instructions ?Recorded ?Last Taken ?Type citalopram 20 mg tablet 40 mg PO DAILY depression 06/05/13 04/30/18 10:00 History Omeprazole [Prilosec] 40 mg PO BID gerd 09/26/14 04/30/18 10:00 History clonazepam 0.5 mg tablet (Klonopin) 0.25 mg PO PRN PRN Anxiety 09/06/17 04/30/18 22:00 History sulfamethoxazole 800 0.5 tab PO BID #20 TABLETS 06/22/22 Unknown Rx mg-trimethoprim 160 mg tablet ciprofloxacin HCl 500 mg tablet 500 mg PO BID #20 tabs 02/24/23 Unknown Rx (Cipro) metronidazole 500 mg tablet 500 mg PO TID #30 tabs 02/24/23 Unknown Rx cyclobenzaprine 10 mg tablet 10 mg PO TID PRN Muscle Spasm #20 09/02/23 Unknown Rx TABLETS ciprofloxacin HCl 500 mg tablet 500 mg PO BID #14 TABLETS 01/14/25 Unknown Rx hydrocodone-acetaminophen 5-325mg 1 tab PO Q4H PRN PRN Pain 2 days 01/14/25 Unknown Rx 5mg-325mg #10 TABLETS metronidazole 500 mg tablet 500 mg PO Q8H 7 days #21 tabs 01/14/25 Unknown Rx Allergy/AdvReac Type Severity Reaction Status Date / Time Egg Derived AdvReac Nausea/Vom/ Verified 01/14/25 08:11 Diarrhea prednisone AdvReac Other Verified 01/14/25 08:11 Surgical History History of cholecystectomy Social History household members: none Smoking Status: Current every day smoker tobacco type: e-cigarettes substance use type: does not use ROS ROS ED Review of Systems ROS Unobtainable: other Constitutional Constitutional ED: Reports lethargy; Denies chills, fever(s), sweats or weight loss Eyes Eyes: Denies blurry vision, change in vision or diplopia ENT ENT ED: Denies rhinorrhea or sore throat Cardiovascular Cardiovascular: Denies chest pain, orthopnea or racing heartbeat Respiratory/Chest Respiratory/Chest: Denies cough, dyspnea, dyspnea on exertion, orthopnea or sputum Gastrointestinal Gastrointestinal: Reports abdominal pain; Denies diarrhea, nausea or vomiting Genitourinary Genitourinary ED: Denies dysuria, hematuria or urinary frequency Musculoskeletal Musculoskeletal: Denies arthralgias, back pain, myalgias or neck pain Integumentary Denies abscess, Abrasions or rash Neurologic Neurologic: Denies headache(s) or weakness Psychiatric Psychiatric: Denies anxiety, depression or suicidal thoughts Endocrine Endocrinology: Denies polydipsia, polyphagia or polyuria Hematologic/Lymphatic Hematologic/Lymphatic: Denies easy bleeding, easy bruising or lymphadenopathy Allergic/Immunologic Allergic/Immunologic ED: Denies mouth swelling, tongue swelling or urticaria EXAM Physical Exam Const Vital Signs: 01/14/25 08:10 Temperature 98.5 F Temperature Source Oral Pulse Rate 72 Respiratory Rate 18 Blood Pressure 164/80 H Blood Pressure Mean 108 Pulse Ox 99 Oxygen Delivery Method Room Air Positive well nourished and well developed General Appearance ED: well developed and NAD HEENT Reports TM's clear and moist mucous membranes normocephalic and atraumatic; Negative for trauma or tenderness Tympanic Membrane ED: Yes TM's clear Eyes PERRL and EOMs intact bilaterally General Eye ED: Negative for pale conjunctiva or scleral icterus Neck no lymphadenopathy, supple and no JVD General: Negative for tenderness Chest Wall inspection of chest normal and palpation of chest normal Chest: Negative for tenderness Resp normal respiratory effort and clear to auscultation bilaterally Effort and Inspection: Negative for respiratory distress or pain with movement Auscultation: Negative for rhonchi, wheezes or diminished lung sounds Cardio regular rate, regular rhythm, S1 normal heart sound, S2 normal heart sound and no murmurs Peripheral Pulses: pulses 2+ throughout GI normal to inspection, nondistended, normoactive bowel sounds, soft to palpation, non-tender and no masses GI Narrative: Tenderness palpation over left lower quadrant with guarding. There is no rebound, rigidity, or peritoneal signs. No mass palpated Back/Spine no CVA tenderness and no thoracic nor lumbar tenderness Extremity normal to inspection General Extremety ED: Negative for edema General Extremity: Negative for edema Neuro oriented x3, CN's II-XII intact bilaterally, no sensory deficits noted and gait normal Sensorium / Orientation: awake, alert, oriented to person, oriented to place and oriented to time Motor Exam: strength 5/5 throughout and strength abnormal Psych mental status grossly normal Skin no rashes or lesions noted and no wounds MDM MDM MDM Narrative Medical decision making narrative: Patient presents with abdominal pain with history of diverticulitis. Pain with palpation to the left lower abdomen. In the differential would be UTI versus diverticulitis versus bowel perforation versus kidney stone or other acute etiology. IV line established. She was medicated with morphine and Zofran. CBC with differential was unremarkable with a normal white count. Chemistries unremarkable. Urinalysis unremarkable. Lactate less than 1. CT scan of the abdomen and pelvis obtained with IV contrast showed acute sigmoid diverticulitis without evidence of abscess or perforation. Discussed results with patient. Will start patient on Cipro and Flagyl and will write her prescription for [place] for pain. Advised to return if worsening pain, fever, bloody stool, or condition worsening way. Lab Data Attestation: I reviewed the patient's lab results. Labs: Laboratory Results - last 24 hr 01/14/25 01/14/25 01/14/25 08:30 08:55 08:55 WBC Cancelled Corrected WBC Cancelled RBC Cancelled Hgb Cancelled Hct Cancelled MCV Cancelled MCH Cancelled MCHC Cancelled RDW Std Deviation Cancelled RDW Coeff of Rinku Cancelled Plt Count Cancelled MPV Cancelled Immature Gran % (Auto) Cancelled Neut % (Auto) Cancelled Lymph % (Auto) Cancelled [place] % (Auto) Cancelled Eos % (Auto) Cancelled Baso % (Auto) Cancelled Absolute Neuts (auto) Cancelled Absolute Lymphs (auto) Cancelled Total Counted Cancelled Neutrophils % (Manual) Cancelled Band Neutrophils % Cancelled Lymphocytes % (Manual) Cancelled Monocytes % (Manual) Cancelled Eosinophils % (Manual) Cancelled Basophils % (Manual) Cancelled Metamyelocytes % Cancelled Myelocytes % Cancelled Promyelocytes % Cancelled Blast Cells % Cancelled Plasma Cell % (Manual) Cancelled Other Cells % Cancelled Nucleated RBC % Cancelled Nucleated RBCs/100 WBC Cancelled Differential Comment Cancelled Diff Path Review Cancelled Hypersegmented Neuts Cancelled Atypical Lymphocytes Cancelled Reactive Lymphocytes Cancelled Smudge Cells Cancelled Toxic Granulation Cancelled Toxic Vacuolation Cancelled Dohle Bodies Cancelled Samantha Rods Cancelled Platelet Estimate Cancelled Plt Morphology Comment Cancelled RBC Morphology Cancelled Cancelled Polychromasia Cancelled Hypochromasia Cancelled Basophilic Stippling Cancelled Anisocytosis Cancelled Microcytosis Cancelled Macrocytosis Cancelled Spherocytes Cancelled Sickle Cells Cancelled Target Cells Cancelled Tear Drop Cells Cancelled Ovalocytes Cancelled Stomatocytes Cancelled Yang-Siren Bodies Cancelled [place] Cells Cancelled Bite Cells Cancelled Crenated Cell Cancelled Acanthocytes (Spur) Cancelled Rouleaux Cancelled Schistocytes Cancelled Sodium 140 Potassium 4.0 Chloride 106 Carbon Dioxide 21.0 Anion Gap 13 BUN 14 Creatinine 1.01 Estim Creat Clear Calc 51.99 Est GFR (MDRD) Non-Af 62 BUN/Creatinine Ratio 13.6 Glucose 85 Lactic Acid < 1.0 Calcium 9.5 Urine Color Yellow Urine Clarity Sl. Cloudy Urine pH 6.0 Ur Specific [place] 1.010 Urine Protein Negative Urine Glucose (UA) Normal Urine Ketones Negative Urine Occult Blood Negative Urine Nitrite Negative Urine Bilirubin Negative Urine Urobilinogen 4 H Ur Leukocyte Esterase 100 H Urine RBC 0 SEEN Urine WBC 0-5 SEEN Ur Squamous Epith Cells 0-5 SEEN Urine Bacteria 0 SEEN Urine Mucus 0 SEEN 01/14/25 09:32 WBC 7.2 Corrected WBC RBC 5.00 Hgb 13.7 Hct 42.3 MCV 84.6 MCH 27.4 MCHC 32.4 RDW Std Deviation 41.9 RDW Coeff of Rinku 13.7 Plt Count 121 L MPV 11.2 Immature Gran % (Auto) 0.300 Neut % (Auto) 80.4 H Lymph % (Auto) 8.8 L [place] % (Auto) 10.0 Eos % (Auto) 0.1 Baso % (Auto) 0.4 Absolute Neuts (auto) 5.8 Absolute Lymphs (auto) 0.63 L Total Counted Neutrophils % (Manual) Band Neutrophils % Lymphocytes % (Manual) Monocytes % (Manual) Eosinophils % (Manual) Basophils % (Manual) Metamyelocytes % Myelocytes % Promyelocytes % Blast Cells % Plasma Cell % (Manual) Other Cells % Nucleated RBC % 0 Nucleated RBCs/100 WBC Differential Comment Diff Path Review Hypersegmented Neuts Atypical Lymphocytes Reactive Lymphocytes Smudge Cells Toxic Granulation Toxic Vacuolation Dohle Bodies Samantha Rods Platelet Estimate Plt Morphology Comment RBC Morphology Polychromasia Hypochromasia Basophilic Stippling Anisocytosis Microcytosis Macrocytosis Spherocytes Sickle Cells Target Cells Tear Drop Cells Ovalocytes Stomatocytes Yang-Siren Bodies [place] Cells Bite Cells Crenated Cell Acanthocytes (Spur) Rouleaux Schistocytes Sodium Potassium Chloride Carbon Dioxide Anion Gap BUN Creatinine Estim Creat Clear Calc Est GFR (MDRD) Non-Af BUN/Creatinine Ratio Glucose Lactic Acid Calcium Urine Color Urine Clarity Urine pH Ur Specific [place] Urine Protein Urine Glucose (UA) Urine Ketones Urine Occult Blood Urine Nitrite Urine Bilirubin Urine Urobilinogen Ur Leukocyte Esterase Urine RBC Urine WBC Ur Squamous Epith Cells Urine Bacteria Urine Mucus Radiography Diagnostic Testing: Clinical Impression(s) from Imaging Studies Abdomen/Pelvis CT 01/14/25 08:28 IMPRESSION: Sigmoid colon diverticulitis. No abscess. Reading Location: [facility] Discharge Plan Triage Chief Complaint: Abd Pain ED Provider: Maki Bhakta Dx/Rx/DC Orders Clinical Impression: Acute diverticulitis, Abdominal pain Instructions: ED Diverticulitis Prescriptions: New hydrocodone-acetaminophen 5-325 mg tablet 1 tab PO Q4H PRN PRN (Reason: Pain) 2 Days Qty: 10 0RF ciprofloxacin HCl 500 mg tablet 500 mg PO BID Qty: 14 0RF metronidazole 500 mg tablet 500 mg PO Q8H 7 Days Qty: 21 0RF No Action citalopram 20 MG tablet 40 mg PO DAILY Patient Comments: depression Omeprazole [Prilosec] 40 MG capsule 40 mg PO BID Patient Comments: HEART BURN clonazepam [Klonopin] 0.5 MG tablet 0.25 mg PO PRN PRN (Reason: Anxiety) sulfamethoxazole-trimethoprim [sulfamethoxazole-trimethoprim] 800-160 mg tablet 0.5 tab PO BID Qty: 20 0RF metronidazole 500 mg tablet 500 mg PO TID Qty: 30 0RF ciprofloxacin HCl [Cipro] 500 mg tablet 500 mg PO BID Qty: 20 0RF cyclobenzaprine 10 mg tablet 10 mg PO TID PRN (Reason: Muscle Spasm) Qty: 20 0RF Primary Care Provider: Lilian Thorne Referrals: NOT,DEFINED [Non-Staff, None] Print Language: Kosovan Disposition Disposition: Home, Self Care
[2025-01-14 08:43] LABS: Mucous, Urine 0 SEEN /hpf (<or=2+); Red Blood Cells-Urine 0 SEEN /hpf (0-5)
[2025-01-14 08:46] LABS: Color, Urine Yellow (Yellow); Glucose, Dipstick Normal (Normal); Ketone-Dipstick Negative (Negative); Leukocyte Esterase-Dipstick 100 /ul (Negative); Nitrite-Dipstick Negative (Negative); Occult Blood-Urine Negative /ul (Negative); Protein-Dipstick Negative (Negative); Specific Gravity, Urine 1.010 (1.002-1.030); Urine Bilirubin Dipstick Negative (Negative)
[2025-01-14 08:52] LABS: Squamous Epithelial Cells - UA 0-5 SEEN /hpf (5-10)
--- OUTSIDE RECORDS SUMMARY | 2025-01-14 09:02 | XMS RPT_ITS | CCD ---
Author Organization [facility] Care Team Providers Care Sheriff Detective Name Role Phone Carol Gonzalez PA-C Primary Care Provider [phone] Ita Gonzalez PA-C Primary Care Provider Unavailable [facility] HOME ENERGY CONSULTANT.Chaparrita MUÑOZ Unavailable [place] HOME ENERGY CONSULTANT.Rosalia MUÑOZline A Unavailable [phone] [facility] HOME ENERGY CONSULTANT.TONI Lilian A Unavailable [phone] [facility] HOME ENERGY CONSULTANT.TONI Lilian A Unavailable [place] HOME ENERGY CONSULTANT.TONI Lilian A Primary Care Provi natalee Jean Long Attending Unavailable Jean Long Referring Unavailable Carol Borden Primary Care Unavailable Carol Borden Primary Care Unavailable Effie Castillo Attending Unavailable Carol Borden Primary Care Provider Dr. Jean Long MD Attending Provider Dr. Jean Long MD Referring Provider SUPPAN, LILIAN Attending Unavailable SUPPAN, LILIAN Primary Care Unavailable ITA GONZALEZ Primary Care Unavailable SUPPAN, LILIAN Attending Unavailable SUPPAN, LILIAN Referring Unavailable SUPPAN, LILIAN Primary Care Unavailable SUPPAN, LILIAN Referring Unavailable SUPPAN, LILIAN Primary Care Unavailable SUPPAN, LILIAN Referring Unavailable SUPPAN, LILIAN Primary Care Unavailable ITA YARBROUGH Attending Unavailable JEAN LONG Referring Unavailable SUPPAN, LILIAN Primary Care Unavailable CHAPARRITA NEWMAN Attending Unavailable SUPPAN, LILIAN Primary Care Unavailable Allergies Allergy Classification Reported Allergen(s) Allergy Type Date of Onset Reaction(s) Facility (20 sources) Amitriptyline; Translations: [AMITRIPTYLINE] Drug Allergy 3 Other: See Comments [facility] Work Phone: (20 sources) Amoxicillin / Clavulanate; Translations: [AMOXICILLIN-PO T CLAVULANATE] Drug Allergy 0 GI Upset, Vomiting [facility] Work Phone: (20 sources) Codeine; Translations: [CODEINE] Drug Allergy 6 GI Upset [facility] Work Phone: (20 sources) Doxycycline; Translations: [DOXYCYCLINE] Drug Allergy 6 [facility] (20 sources) egg extract; Translations: [EGG] Drug Allergy 3 Intolerance, GI Upset [facility] Work Phone: (20 sources) Etodolac; Translations: [ETODOLAC] Drug Allergy 6 [facility] (20 sources) FLUoxetine; Translations: [FLUOXETINE HCL] Drug Allergy 6 [facility] (20 sources) lansoprazole; Translations: [LANSOPRAZOLE] Drug Allergy 6 [facility] (20 sources) oxyCODONE; Translations: [OXYCODONE] Drug Allergy 1 Vomiting [facility] (20 sources) predniSONE; Translations: [PREDNISONE] Drug Allergy 8 Mental Status Change [facility] (6 sources) Egg Derived Propensity to adverse reactions 2 Nausea/Vom/Diar anderson [facility] (1 source) egg extract Drug Allergy 4 [facility] (1 source) predniSONE Drug Allergy 4 [facility] Medications Current Medications Medication Drug Class(es) Dates Sig (Normalized) Sig (Original) acetaminophen 325 mg / oxyCODONE hydrochloride 5 mg oral tablet (13 sources) Opioid Agonist Start: 11-22-2021 take 1 tablet by mouth every six hours Oxycodone-Acetami nophen (Percocet) 5-325 mg tablet Active 1 TABLET PO EVERY 6 HOURS 12 3 November 22, 2021 Start: 11-07-2018 End: 11-12-2018 Oxycodone-Acetaminophen 1 TA BLET tablet Discontinued 1 {tbl} PO EVERY 6 HOURS NEEDED as needed for Pain 12 3 November 07, 2018 November 09, 2018 12:00am November 12, 2018 12:07am Start: 11-07-2018 End: 11-12-2018 take 1 tablet by mouth every six hours as needed Oxycodone-Acetaminophen Discontinued 1 TABLET PO EVERY 6 HOURS NEEDED 12 3 November 07, 2018 November 11, 2018 11:07pm amoxicillin 875 mg / clavulanate 125 mg oral tablet (2 sources) Penicillin-class Antibacterial Start: 01-21-2022 take 875 mg by mouth every twelve hours Amoxicillin-Pot Clavulanate Active 875 MG PO Q12H January 20, 2022 11:00pm busPIRone hydrochloride 5 mg oral tablet (20 sources) Start: 04-08-2024 End: 01-07-2025 take 1 tablet by mouth three times daily busPIRone (BUSPAR) 5 mg tablet Indications: Adjustment disorder with depressed mood Take 1 tablet by mouth three times a day. 270 tablet 1 07/11/2024 01/07/2025 Active Start: 05-10-2023 End: 12-18-2023 take 1 tablet by mouth three times daily busPIRone (BUSPAR) 5 mg tablet Indications: Anxiety with depression Take 1 tablet by mouth three times a day. 90 tablet 5 06/21/2023 12/18/2023 Active Comment on above: Take 1 tablet by mark th three times a day. cefdinir 300 mg oral capsule (1 source) Cephalosporin Antibacterial Start: End: take 1 capsule by mouth twice daily cefdinir (OMNICEF) 300 mg capsule Take 1 capsule by mouth two times a day for 7 days. 14 capsule 06/01/2024 06/08/2024 Active cephalexin 500 mg oral capsule (8 sources) Cephalosporin Antibacterial Start: End: take 1 capsule by mouth four times daily cephALEXin (KEFLEX) 500 mg capsule Indications: Acute UTI Take 1 capsule by mouth four times daily for 7 days. 28 capsule 07/24/2024 07/31/2024 Active Start: 03-27-2022 End: 03-30-2022 take 1 capsule by mouth twice daily cephALEXin (KEFLEX) 500 mg capsule Indications: Urinary frequency Take 1 capsule by mouth twice daily for 7 days. 14 capsule 0 03/27/2022 03/30/2022 Discontinued Start: 10-20-2021 End: 10-27-2021 take 1 capsule by mouth twice daily cephALEXin (KEFLEX) 500 mg capsule Take 1 capsule by mouth twice daily for 7 days. 14 capsule 0 10/20/2021 10/27/2021 Active Start: 07-14-2021 End: 07-24-2021 take 1 capsule by mouth twice daily cephALEXin (KEFLEX) 500 mg capsule Take 1 capsule by mouth twice daily for 10 days. 20 capsule 0 07/14/2021 07/24/2021 Active Start: 07-14-2021 End: 07-14-2021 take 1 capsule by mouth three times daily cephALEXin (KEFLEX) 500 mg capsule Take 1 capsule by mouth three times daily for 10 days. 30 capsule 0 07/14/2021 07/14/2021 Discontinued Comment on above: Take 1 capsule by mo ut twice daily for 10 days. Take 1 capsule by mo [facility] three times daily for 10 days. Take 1 capsule by mo ut twice daily for 7 days. ciprofloxacin 500 mg oral tablet (8 sources) Quinolone Antimicrobial Start: 02-25-20 take 1 tablet by mouth twice daily Ciprofloxacin Hcl (Cipro) 500 mg tablet Active 500 mg PO TWICE A DAY February 24, 2023 1:00am Start: 05-30-2018 End: 06-09-2018 take 1 tablet by mouth twice daily Ciprofloxacin Hcl 500 MG tablet Discontinued 500 mg PO TWICE A DAY 15 01May 30, 2018 1:00am June 08, 2018 12:00am June 09, 2018 12:07am citalopram 40 mg oral tablet (20 sources) Serotonin Reuptake Inhibitor Start: 06-30-2021 End: 01-31-2025 take 1 tablet by mouth once daily citalopram (CELEXA) 40 mg tablet Indications: Adjustment disorder with depressed mood , Anxiety neurosis Take 1 tablet by mouth once daily. 90 tablet 1 08/04/2024 01/31/2025 Active Start: 12-31-2020 take 1 tablet by [facility] once daily citalopram (CELEXA) 40 mg tablet Indications: Adjustment disorder with depressed mood , Anxiety neurosis Take 1 tablet by mouth once daily. 30 tablet 11 12/31/2020 Active Start: 06-05-2013 take 2 tablets by [facility] once daily Citalopram 20 MG tablet Active 40 mg PO DAILY June 05, 2013 12:00am Start: 06-05-2013 take 40 mg by mouth once daily Citalopram Active 40 MG PO DAILY June 04, 2013 11:00pm Comment on above: Take 1 tablet by [facility] once daily. cyclobenzaprine hydrochloride 10 mg oral tablet (1 source) Muscle Relaxant Start: 09-02-19 24 take 1 tablet by mouth three times daily as needed for muscle spasms Cyclobenzaprine 10 mg tablet Active 10 mg PO THREE TIMES A DAY as needed for Muscle Spasm September 02, 2023 12:00am gabapentin 300 mg oral capsule (20 sources) Anti-epileptic Agent Start: 02-12-20 End: 07-12-19 26 take 1 capsule by mouth three times daily gabapentin (NEURONTIN) 300 mg capsule Indications: Neck pain, chronic , Myofascial pain Take 1 capsule by mouth three times a day for 180 days. 270 capsule 1 08/04/2024 01/31/2025 Active Comment on above: Take 1 capsule by [facility] three times a day for 90 days. iv contrast (will be provided with radiology test) (3 sources) Start: 07-27-19 End: 07-28-19 iv contrast (will be provided with radiology test) CT kidney wow Inject, intravenously, once for 1 dose.No IV access, insert saline lock prior to the beginning of sedation, infusion, injection of imaging exam. Discontinue saline lock post exam. If Pt. has a central line or IVAD, may access for administration according to line specific nursing protocol. Once exam is complete flush line and de-access according to line specific nursing protocol in the CT contrast administration guidelines link. 1 each 07/26/2024 07/27/2024 Active Start: 07-25-2024 End: 07-26-2024 iv contrast (will be provide d with radiology test) MRI Kidney Inject, intravenously, once for 1 dose. No IV access, insert saline lock prior to the beginning of sedation, infusion, injection of imaging exam. Discontinue saline lock post exam. If Pt. has a central line or IVAD, may access for administration according to line specific nursing protocol. Once exam is complete flush line and de-access according to line specific nursing protocol in the MR contrast administration guidelines link. 1 each 07/25/2024 07/26/2024 Discontinued metroNIDAZOLE 500 mg oral tablet (8 sources) Nitroimidazole Antimicrobial Start: 02-24-2023 take 1 tablet by mouth three times daily Metronidazole 500 mg tablet Active 500 mg PO THREE TIMES A DAY February 24, 2023 1:00am Start: 05-30-2018 End: 06-09-2018 take 1 tablet by mouth every eight hours Metronidazole 500 MG tablet Discontinued 500 mg PO Q8H 25 01May 30, 2018 1:00am June 08, 2018 12:00am June 09, 2018 12:07am omeprazole 20 mg delayed release oral tablet (20 sources) Proton Pump Inhibitor Start: 03-11-2023 End: 01-31-2025 take 1 tablet by mouth twice daily Omeprazole Magnesium (PRILOSEC OTC) 20 mg tablet Indications: Gastroesophageal reflux disease, unspecified whether esophagitis present Take 1 tablet by mouth two times a day. 180 tablet 1 08/04/2024 01/31/2025 Active Start: 01-30-2022 End: 08-26-2022 take 1 tablet by mouth twice daily Omeprazole Magnesium (PRILOSEC OTC) 20 mg tablet Indications: Gastroesophageal reflux disease, unspecified whether esophagitis present Take 1 tablet by mouth twice daily. 60 tablet 5 08/26/2022 Active Start: 06-30-2021 End: 01-28-2022 take 1 tablet by mouth twice daily Omeprazole Magnesium (PRILOSEC OTC) 20 mg tablet Take 1 tablet by mouth twice daily. 60 tablet 5 06/30/2021 01/28/2022 Discontinued Start: 12-10-2020 take 1 tablet by mark th twice daily Omeprazole Magnesium (PRILOSEC OTC) 20 mg tablet Take 1 tablet by mouth twice daily. 60 tablet 5 12/10/2020 Active Start: 09-26-2014 take 1 capsule by mo ohh twice daily Omeprazole (Prilosec) 40 MG capsule Active 40 mg PO TWICE A DAY September 26, 2014 12:00am Comment on above: Take 1 tablet by mark th twice daily. Take 1 tablet by mark th two times a day. ondansetron 4 mg disintegrating oral tablet (8 sources) Serotonin-3 Receptor Antagonist Start: take 4 mg by mouth every eight hours Ondansetron Active 4 MG PO Q8H November 22, 2021 12:00am Start: 10-02-2017 End: 11-15-2017 take 1 tablet by mouth every eight hours as needed for nausea Ondansetron 4 MG tablet Discontinued 4 mg PO EVERY 8 HOURS NEEDED as needed for Nausea October 02, 2017 12:00am November 15, 2017 6:12pm perflutren lipid microspheres 1.3 mL in NaCl (PF) 0.9% 10 mL injection (DEFINITY) (17 sources) Start: 12-11-2021 End: 03-12-2023 perflutren lipid microspheres 1.3 mL in NaCl (PF) 0.9% 10 mL injection (DEFINITY) 125 ml sodium chloride 9 mg/ml prefilled syringe (17 sources) Start: 12-11-2021 End: 03-12-2023 sodium chloride 0.9 % (flush) 10 mL (BD POSIFLUSH) sulfamethoxazole 800 mg / trimethoprim 160 mg oral tablet (8 sources) Dihydrofolate Reductase Inhibitor Antibacterial, Sulfonamide Antimicrobial Start: 06-22-2022 Sulfamethoxazole-Tri methoprim 800-160 mg tablet Active 0.5 {tbl} PO TWICE A DAY June 22, 2022 12:00am Start: 06-22-2022 take 0.5 tablet by mouth twice daily Sulfamethoxazole-Trimethoprim Active 0.5 TABLET PO TWICE A DAY June 21, 2022 11:00pm Start: 03-30-2022 End: 04-04-2022 take 1 tablet by mouth twice daily sulfamethoxazole-trimethoprim (BACTRIM D S) 800-160 mg per tablet Take 1 tablet by mouth twice daily for 5 days. 10 tablet 0 03/30/2022 04/04/2022 Active Start: 11-22-2021 take 1 tablet by mark th twice daily Sulfamethoxazole-Trimethoprim (Bactrim D s) 800-160 mg tablet Active 1 TABLET PO TWICE A DAY November 22, 2021 12:00am Start: 09-13-2021 End: 09-20-2021 take 1 tablet by mouth twice daily sulfamethoxazole-trimethoprim (BACTRIM D S) 800-160 mg per tablet Indications: Urinary frequency Take 1 tablet by mouth twice daily for 7 days. 14 tablet 0 09/13/2021 09/20/2021 Active Start: 07-28-2021 End: 08-04-2021 take 1 tablet by mouth twice daily sulfamethoxazole-trimethoprim (BACTRIM D S) 800-160 mg per tablet Indications: Urinary frequency Take 1 tablet by mouth twice daily for 7 days. 14 tablet 0 07/28/2021 08/04/2021 Active Start: 06-25-2021 End: 06-30-2021 take 1 tablet by mouth twice daily sulfamethoxazole-trimethoprim (BACTRIM D S) 800-160 mg per tablet Indications: Burning with urination Take 1 tablet by mouth twice daily for 5 days. 10 tablet 0 06/25/2021 06/30/2021 Active Comment on above: Take 1 tablet by mark th twice daily for 5 days. Take 1 tablet by mark th twice daily for 7 days. tamsulosin hydrochloride 0.4 mg oral capsule (2 sources) alpha-Adrenergic Jackie Start: 2 take 1 capsule by mouth once daily Tamsulosin (Flomax) 0.4 mg capsule Active 0.4 MG PO DAILY November 22, 2021 12:00am terbinafine hydrochloride 10 mg/ml topical cream (2 sources) Allylamine Antifungal Start: 2 End: 2 terbinafine HCl (LAMISIL) 1 % cream Indications: Rash of foot Apply to affected area twice daily for 14 days. 24 g 1 06/30/2021 07/14/2021 Active Comment on above: Apply to affected ar ea twice daily for 14 days. tiZANidine 4 mg oral tablet (11 sources) Central alpha-2 Adrenergic Agonist Start: 5 End: 5 take 1 tablet by mouth twice daily as needed tiZANidine (ZANAFLEX) 4 mg tablet Indications: Pain in both lower extremities Take 1 tablet by mouth two times a day as needed. 60 tablet 1 11/15/2024 02/13/2025 Active Start: 07-11-2024 End: 10-09-2024 take 1 tablet by mouth twice daily as needed tiZANidine (ZANAFLEX) 4 mg tablet Indications: Neck pain, chronic , Myofascial pain Take 1 tablet by mouth two times a day as needed. 60 tablet 2 07/11/2024 10/09/2024 Start: 06-21-2023 End: 07-21-2023 take 1 tablet by mouth every eight hours as needed for muscle spasms tiZANidine (ZANAFLEX) 4 mg tablet Indications: Torticollis Take 1 tablet by mouth every 8 hours as needed (muscle spasms). 90 tablet 0 06/21/2023 07/21/2023 Active Comment on above: Take 1 tablet by mark every 8 hours as needed (muscle spasms). Completed/Discontinued Medications Medication Drug Class(es) Dates Sig (Normalized) Sig (Original) acetaminophen 325 mg / HYDROcodone bitartrate 5 mg oral tablet (12 sources) Opioid Agonist Start: 03-05-2018 End: 03-07-2018 Hydrocodone-Acetami nophen 1 TABLET tablet Discontinued 1 {tbl} PO EVERY 4 HOURS NEEDED as needed for Pain 12 28March 05, 2018 1:00am March 06, 2018 1:00am March 07, 2018 1:09am Start: 03-05-2018 End: 03-07-2018 take 1 tablet by mouth every four hours as needed Hydrocodone-Acetaminophen Discontinued 1 TABLET PO EVERY 4 HOURS NEEDED 12 28March 05, 2018 12:00am March 07, 2018 12:09am Start: 02-08-2018 End: 02-10-2018 Hydrocodone-Acetaminophen 1 TABLET tablet Discontinued 1 {tbl} PO EVERY 4 HOURS NEEDED as needed for Pain 12 28February 08, 2018 1:00am February 09, 2018 1:00am February 10, 2018 1:08am Start: 02-08-2018 End: 02-10-2018 take 1 tablet by mouth every four hours as needed Hydrocodone-Acetaminophen Discontinued 1 TABLET PO EVERY 4 HOURS NEEDED 12 28February 08, 2018 12:00am February 10, 2018 12:08am [id number] 200 actuat albuterol 0.09 mg/actuat metered dose inhaler (1 source) beta2-Adrenergic Agonist Start: 04-01-2021 take 2 puff(s) by inhalation every four hours as needed albuterol HFA (PROAIR HFA) 90 mcg/actuation inhaler Inhale 2 Puffs as instructed every 4 hours as needed. 18 g 0 04/01/2021 Active Comment on above: Inhale 2 Puffs as instructed every 4 ashutosh [address] as needed. clonazePAM 0.5 mg oral tablet (20 sources) Benzodiazepine Start: 04-24-2022 End: 05-10-2023 take 0.5 tablet by mouth twice daily, then take 0.5 tablet by mouth every week clonazePAM (KLONOPIN) 0.5 mg tablet Indications: Anxiety neurosis Take 0.5 tablets by mouth twice daily for 90 days. Try to wean by 1/2 Dose a few times a week. 54 tablet 0 07/30/2022 05/10/2023 Discontinued (Patient chooses alternative therapy) Start: 06-30-2021 End: 03-31-2022 take 0.5 tablet by mouth twice daily, then take 0.5 tablet by mouth every week clonazePAM (KLONOPIN) 0.5 mg tablet Indications: Adjustment disorder with depressed mood , Anxiety neurosis Take 0.5 tablets by mouth twice daily for 90 days. Try to wean by 1/2 Dose a few times a week. 60 tablet 2 12/31/2021 Active Start: 12-31-2020 take 0.5 tablet by m outh twice daily, then take 0.5 tablet by mouth every week clonazePAM (KLONOPIN) 0.5 mg tablet Indications: Adjustment disorder with depressed mood , Anxiety neurosis Take 0.5 tablets by mouth twice daily for 90 days. Try to wean by 1/2 Dose a few times a week. 60 tablet 2 12/31/2020 Active Start: 09-06-2017 Clonazepam (Kl onopin) 0.5 MG tablet Active 0.25 mg PO NEEDED as needed for Anxiety September 06, 2017 12:00am Comment on above: Take 0.5 tablets by mouth twice daily for 90 days. Try to wean by 1/2 Dose a few times a week. dicyclomine hydrochloride 10 mg oral capsule (6 sources) Anticholinergic Start: 018 End: 018 take 2 capsules by mouth three times daily before mealtime Dicyclomine 10 MG capsule Discontinued 20 mg PO THREE TIMES DAILY BEFORE MEALS October 02, 2017 12:00am November 15, 2017 6:11pm Start: 10-02-2017 End: 11-15-2017 take 20 mg by mouth three times daily before mealtime Dicyclomine Discontinued 20 MG PO THREE TIMES DAILY BEFORE MEALS October 01, 2017 11:00pm November 15, 2017 5:11pm ferrous gluconate 324 mg oral tablet (20 sources) Start: 06-30-2021 End: 07-11-2024 take 1 tablet by mouth once daily at breakfast ferrous gluconate 324 mg (37.5 mg iron) tablet Take 1 tablet by mouth daily with breakfast. 30 tablet 5 06/30/2021 07/11/2024 Discontinued (Course of therapy completed) Start: 05-03-2021 take 324 mg by mouth once shanelle y Ferrous Gluconate Active 324 MG PO DAILY May 03, 2021 1:00am Start: 12-23-2020 take 1 tablet by mark th once daily at breakfast ferrous gluconate 324 mg (37.5 mg iron) tablet Take 1 tablet by mouth daily with breakfast. 30 tablet 5 12/23/2020 Active Comment on above: Take 1 tablet by mark th daily with breakfast. ferrous sulfate 325 mg oral tablet (1 source) Start: take 1 tablet by mouth twice daily at mealtime ferrous sulfate 325 mg (65 mg iron) tablet Take 1 tablet by mouth twice daily with meals. 60 tablet 5 10/10/2017 Active Comment on above: Take 1 tablet by mark twice daily with meals. 12 hr guaiFENesin 600 mg extended release oral tablet (1 source) Start: take 2 tablets by mouth twice daily guaiFENesin (MUCINEX) 600 mg 12 hr tablet Take 2 tablets by mouth twice daily. 24 tablet 0 04/01/2021 Active Comment on above: Take 2 tablets by mo [facility] twice daily. mometasone furoate 1 mg/ml topical cream (1 source) Corticosteroid Start: mometasone (ELOCON) 0.1 % cream Indications: Dermatitis Apply 1 application to affected area once daily. 45 g 0 10/02/2020 Active Comment on above: Apply 1 application to affected area once daily. regadenoson (LEXISCAN) 0.4 mg/5 mL syrg (1 source) Start: End: regadenoson (LEXISCAN) 0.4 mg/5 mL syrg Indications: Precordial pain Inject 5 mL intravenously one time only for 1 dose. Give IV push over 10 seconds and follow with 5 ml of normal saline 5 mL 0 12/11/2021 12/11/2021 Comment on above: Inject 5 mL intraven ously one time only for 1 dose. Give IV push over 10 seconds and follow with 5 ml of normal saline traZODone hydrochloride 50 mg oral tablet (14 sources) Serotonin Reuptake Inhibitor Start: 023 End: take 1 tablet by mouth once daily at bedtime traZODone (DESYREL) 50 mg tablet Indications: Adjustment insomnia Take 1 tablet by mouth daily at bedtime. 30 tablet 2 03/11/2023 07/11/2024 Discontinued (Discontinued by Patient) Comment on above: Take 1 tablet by mark th daily at bedtime. vitamin b12 1 mg oral tablet (20 sources) Vitamin B12 Start: 022 End: take 1 tablet by mouth once daily cyanocobalamin (VITAMIN B-12) 1,000 mcg tab Indications: Adjustment disorder with depressed mood , Anxiety neurosis , Vitamin B12 deficiency , Iron deficiency anemia due to chronic blood loss Take 1 tablet by mouth once daily. 90 tablet 3 05/08/2021 07/11/2024 Discontinued (Discontinued by Patient) Start: 10-14-2020 cyanocobalamin 1,000 mcg injection Comment on above: Take 1 tablet by mark th once daily. 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] 02-10-2023 Chronic Cardiac dysrhythmias (5 sources) Ventricular premature beats; Translations: [Ventricular premature depolarization] 12-04-2021 Chronic Chronic kidney disease (20 sources) Chronic progressive renal failure; Translations: [Chronic progressive renal failure, stage 3 (moderate)] Onset: 8 03-25-2021 Chronic Chronic kidney disease (1 source) Chronic kidney disease; Translations: [Stage 3a chronic kidney disease (HCC)] Onset: 5 Chronic obstructive pulmonary disease and bronchiectasis (19 sources) Emphysematous bronchitis; Translations: [COPD (chronic obstructive pulmonary disease) with chronic bronchitis] Onset: 2 Resolved: 5 08-22-2014 Chronic Congestive heart failure; nonhypertensive (2 sources) Heart failure with normal ejection fraction; Translations: [Unspecified diastolic (congestive) heart failure] Onset: 5 07-11-2024 Chronic Deficiency and other anemia (1 source) Iron deficiency anemia due to blood loss; Translations: [Iron deficiency anemia secondary to blood loss (chronic)] Chronic Disorders of lipid metabolism (1 source) Mixed hyperlipidemia; Translations: [Mixed hyperlipidemia] Chronic Diverticulosis and diverticulitis (20 sources) Diverticulitis of large intestine; Translations: [Diverticulitis of large intestine without perforation or abscess without bleeding] Onset: 6 05-12-2018 Chronic Esophageal disorders (20 sources) Gastroesophageal reflux disease; Translations: [Gastro-esophageal reflux disease without esophagitis] Onset: 7 09-06-2017 Chronic Essential hypertension (1 source) Essential (primary) hypertension; Translations: [Primary hypertension] Onset: 5 Chronic Heart valve disorders (2 sources) Nonrheumatic aortic (valve) stenosis; Translations: [Aortic valve disorders] Chronic Intestinal infection (20 sources) Helicobacter test finding; Translations: [Other specified bacterial intestinal infections] 09-06-2017 Episodic Mood disorders (6 sources) Depressive disorder; Translations: [Depression] 09-17-2020 Chronic Nausea and vomiting (1 source) Nausea; Translations: [Nausea] Episodic Nephritis; nephrosis; renal sclerosis (20 sources) Atrophy of left kidney; Translations: [Atrophy of kidney (terminal)] Onset: 8 01-19-2018 Chronic Nonspecific chest pain (6 sources) Atypical chest pain; Translations: [Other chest pain] Episodic Nutritional deficiencies (1 source) Cobalamin deficiency; Translations: [Deficiency of other specified B group vitamins] Episodic Other aftercare (1 source) Drug therapy finding; Translations: [Other skilled nursing (current) drug therapy] Episodic Other and ill-defined heart disease (1 source) Other ill-defined heart diseases; Translations: [Diastolic dysfunction] Onset: 5 Chronic Other circulatory disease (20 sources) Disorder of aorta; Translations: [Disorder of arteries and arterioles, unspecified] Onset: 2 05-10-2021 Chronic Other circulatory disease (6 sources) Arteritis; Translations: [Arteritis, unspecified] 09-17-2020 Chronic Other connective tissue disease (1 source) Spasm; Translations: [Other muscle spasm] 09-10-2023 Episodic Other connective tissue disease (1 source) Pain in bilateral legs; Translations: [Pain in right leg] 11-15-2024 Episodic Other connective tissue disease (1 source) Pain in right leg; Translations: [Pain in both lower extremities] Onset: 5 Episodic Other connective tissue disease (1 source) Pain in left leg; Translations: [Pain in both lower extremities] Onset: 5 Episodic Other diseases of kidney and ureters (2 sources) Disorder of kidney and/or ureter; Translations: [Other specified disorders of kidney and ureter] 07-25-2024 Chronic Other diseases of kidney and ureters (2 sources) Other specified disorders of kidney and ureter; Translations: [Other specified disorders of kidney and ureter] Onset: 5 Chronic Other diseases of kidney and ureters (1 source) Hydroureter; Translations: [Hydroureter] Episodic Other diseases of kidney and ureters (1 source) Hydronephrosis; Translations: [Unspecified hydronephrosis] Episodic Other diseases of kidney and ureters (1 source) Disorder of kidney and/or ureter 07-26-2024 Episodic Other gastrointestinal disorders (7 sources) Diarrhea; Translations: [Diarrhea, unspecified] Episodic Other gastrointestinal disorders (6 sources) History of diverticulitis; Translations: [Personal history of other diseases of the digestive system] 12-05-2019 Episodic Other gastrointestinal disorders (1 source) Diarrhea of presumed infectious origin; Translations: [Diarrhea, unspecified] 02-11-2023 Episodic Other hereditary and degenerative nervous system conditions (20 sources) Restless legs; Translations: [Restless legs syndrome] Onset: 8 09-06-2017 Chronic Other injuries and conditions due to external causes (1 source) Injury of head; Translations: [Unspecified injury of head, initial encounter] Episodic Other liver diseases (1 source) Steatosis of liver; Translations: [Fatty (change of) liver, not elsewhere classified] 07-25-2024 Chronic Other liver diseases (1 source) Fatty (change of) liver, not elsewhere classified; Translations: [Hepatic steatosis] Onset: 5 Chronic Other nervous system disorders (1 source) Other chronic pain; Translations: [Neck pain, chronic] Onset: 8 Chronic Other upper respiratory infections (1 source) Bacterial sinusitis; Translations: [Chronic sinusitis, unspecified] 06-01-2024 Chronic Other upper respiratory infections (8 sources) Upper respiratory infection; Translations: [Acute upper respiratory infection, unspecified] Episodic Residual codes; unclassified (3 sources) Multiple symptoms; Translations: [Other general symptoms and signs] 03-04-2022 Episodic Residual codes; unclassified (1 source) Asymptomatic menopausal state; Translations: [Asymptomatic menopause] Onset: Episodic Screening and history of mental health and substance abuse codes (1 source) Patient encounter status; Translations: [Encounter for screening for depression] 07-11-2024 Episodic Sprains and strains (1 source) Strain of back muscle; Translations: [Strain of muscle, fascia and tendon of lower back, initial encounter] 09-10-2023 Episodic Viral infection (3 sources) Disease caused by 2019-nCoV; Translations: [COVID-19] 02-24-2022 Episodic Past or Other Problems Problem Classification Problem Date Documented Da te Episodic/Chronic Abdominal pain (20 sources) Left lower quadrant pain; Translations: [Left lower quadrant pain] Onset: 10-10-2015 Resolved: 09-06-2017 09-17-2020 Episodic Cardiac dysrhythmias (20 sources) Palpitations; Translations: [Palpitations] Onset: 11-27-2021 Episodic Deficiency and other anemia (20 sources) Iron deficiency anemia; Translations: [Iron deficiency anemia, unspecified] Onset: 07-29-2012 10-03-2020 Episodic Genitourinary symptoms and ill-defined conditions (20 sources) Scalding pain on urination ; Translations: [Dysuria] Onset: 08-07-2010 Resolved: 09-06-2017 Episodic Noninfectious gastroenteritis (19 sources) Colitis; Translations: [Noninfective gastroenteritis and colitis, unspecified] Onset: 10-31-2009 Resolved: 09-06-2017 09-06-2017 Episodic Other connective tissue disease (20 sources) Myofascial pain; Translations: [Myalgia, other site] Onset: 10-16-2013 09-06-2017 Episodic Other connective tissue disease (1 source) Myalgia, other site; Translations: [Myofascial pain] Onset: 09-06-2017 Episodic Other diseases of kidney and ureters (20 sources) Retroperitoneal fibrosis; Translations: [Crossing vessel and stricture of ureter without hydronephrosis] Onset: 08-07-2010 09-06-2017 Episodic Other gastrointestinal disorders (19 sources) Irritable bowel syndrome with diarrhea; Translations: [Irritable bowel syndrome with diarrhea] Onset: 09-19-2015 Resolved: 09-06-2017 09-06-2017 Chronic Other lower respiratory disease (19 sources) Dyspnea; Translations: [Shortness of breath] Onset: 12-26-2007 Resolved: 09-06-2017 09-06-2017 Episodic Other screening for suspected conditions (not mental disorders or infectious disease) (20 sources) CT of abdomen abnormal; Translations: [Abnormal findings on diagnostic imaging of other abdominal regions, including retroperitoneum] Onset: 10-10-2015 09-25-2020 Episodic Other skin disorders (19 sources) Acne; Translations: [Acne, unspecified] Onset: 12-03-2011 Resolved: 09-06-2017 09-06-2017 Episodic Spondylosis; intervertebral disc disorders; other back problems (20 sources) Chronic neck pain; Translations: [Cervicalgia] Onset: 01-18-2013 09-06-2017 Episodic Substance-related disorders (19 sources) Tobacco user; Translations: [Nicotine dependence, unspecified, uncomplicated] Onset: 06-09-2007 Resolved: 09-06-2017 09-06-2017 Chronic Urinary tract infections (19 sources) Acute urinary tract infection; Translations: [Urinary tract infection, site not specified] Onset: 07-24-2024 Episodic Results Test Name Value Interpretation Reference Range Facility [facility] ([id number]) 1960 F Date Time Provider Department 01/11/25 3:00 PM LILIAN SRIVASTAVA During your visit today, we recorded the following information about you: Pulse Blood pressure Weight 74/minute 148/84 65.3 kg Lilian Srivastava, NANCY.BANQUET DIRECTOR 01/11/2025 3:20 PM Signed This is a 64 year old female who presents today with: No chief complaint on file. HISTORY OF PRESENT ILLNESS: Dolores Barnhart is a 64 year old female. No chief complaint on file. The patient is a 64-year-old female with HTN and stage 1 diastolic dysfunction, presenting for follow-up of blood pressure management and evaluation of chronic lower extremity muscle pain. Dolores is a 64-year-old female with a history of HTN, presenting for an annual wellness visit, with additional complaints of leg pain and palpitations. Annual Wellness Exam: - Recent birthday since last visit. - Denies fever, chills, changes in hearing or vision, SOB, cough, wheezing, chest pain, leg swelling, orthopnea, nausea, emesis, hematuria, dysuria, joint pain, rashes, itching, excessive thirst, syncope, seizures, tremors, or suicidal ideation. - Reports ear congestion. - Recent weight loss, intentional. - Family history of HTN. - Denies having advanced directives; requests information. - Did not tolerate shingles vaccine. - Mother had a hip fracture and from it. Cataract Surgery: - Underwent right eye cataract surgery in October; reports improved vision. Hypertension: - Reports family history of HTN. - Recent BP readings noted to be a little high. Palpitations: - Describes sensation of heart shutting and then opening. - Reports heart racing. Diastolic Dysfunction: - Recent echocardiogram showed stage 1 diastolic dysfunction. Leg Pain: - Reports chronic leg pain from ankles to thighs. - Pain alleviated by tizanidine, which also causes somnolence. - Has tried taking half a tablet of tizanidine during the day with some relief. - Gabapentin provides some relief. - Denies joint pain or swelling. Constipation: - Reports chronic constipation. - Increased vegetable and water intake provides some relief. PAST MEDICAL HISTORY: PAST MEDICAL HISTORY Diagnosis Date Abnormal CT [...] CT abd/ pel 05/28/15 treated in ED [facility]. Has f/u with Dr. Arthur for EGD [...] abuse disorder stopped smoking PAST SURGICAL HISTORY Proce (more content not included)... Normal [facility] CNOVon 11-15-2024 CNOV Office Visit ([facility]) DOLORES BARNHART ([id number]) 1960 F Date Time Provider Department 11/15/24 2:00 PM CHAPARRITA NEWMAN During your visit today, we recorded the following information about you: Pulse Respiration Blood pressure 68/minute 16/minute 122/77 Chaparrita Newman APRN.CNP 11/15/2024 2:15 PM Signed You can use the tizanidine up to twice daily as needed for the leg pain. Chaparrita Newman APRN.CNP 11/15/2024 5:47 PM Signed This is a 63 year old female who presents today with: Dolores Gallegos Obey is a 63-year-old female presenting for evaluation of chronic bilateral leg pain. HISTORY OF PRESENT ILLNESS: Chronic Bilateral Leg Pain: - Chronic, throbbing pain in bilateral legs, primarily from ankles to knees, x several months. - Describes sensation as little things are moving around in here. - Pain is constant, worsened by prolonged standing. - Alleviated by tizanidine, which provided 15 hours of relief per dose; stopped due to prescription running out. - Also taking gabapentin and ibuprofen with some relief; concerned about excessive ibuprofen use due to stomach issues. - Dolores denies leg cramps. - Reports previous restless legs syndrome, now replaced by pain. - Denies known trauma. - Reports bad veins and a lump where a vein is located; denies leg swelling. - Noticed purple discoloration of knees when cold. - Denies numbness or tingling in legs, except around ankles. - Tizanidine taken at night due to causing sleepiness and dizziness; helps with sleep, no morning grogginess. - Massaging legs at night provides some relief. PAST MEDICAL HISTORY: PAST MEDICAL HISTORY Diagnosis Date Abnormal CT [...] CT abd/ pel 05/28/15 treated in ED [facility]. Has f/u with Dr. Arthur for EGD [...] Hcl] MEDICATIONS Current Outpatient Medications Medication Sig tiZANidine (ZANAFLEX) 4 mg tablet Take 1 tablet by mouth two times a day as needed. Omeprazole Magnesium (PRILOSEC OTC) 20 mg tablet Take 1 tablet by mouth two times a day. citalopram (CELEXA) 40 mg tablet Take 1 tablet by mouth once daily. gabapentin (NEURONTI (more content not included)... Normal [facility] CREATININE FINGERSTICKon Creatinine [Mass/Vol] 1.2 mg/dL High 0.55-1.02 [facility] Comment on above: Performed By: #### L 9100.0200 #### [facility] [address] [place], [address] GFR/1.73 sq M.predicted among non-blacks MDRD (S/P/Bld) [Vol rate/Area] 46.0000 mL/min/{1.73_m2} Low >60 [facility] Comment on above: Performed By: #### L 9100.0200 #### [facility] [address] [place], [place], [address] CT Abd/Pelvis W/WO Contrasto n 08-25-2024 CT Abd/Pelvis W/WO Contrast [facility] [address] [place] [address] CT Abd/Pelvis W/WO Contrast MR#: [id number] Acct: [id number] Name: DOLORES BARNHART Rep #: [id number] : 1960 F 63 From: Matt Guerin MD PCP: NOLAN Haley Status: REG CLI Study: CT Abd/Pelvis W/WO Contrast Date of Exam: 07/29 Exam# [id number] Ordering Dr: Jean Long MD PROCEDURE: CT ABD/PELVIS W/WO CONTRAST 08/25/2024 REASON FOR EXAM: RENAL MASS/ DISORDER OF KIDNEY/URETER TECHNIQUE: Abdomen and pelvis CT before and following intravenous contrast. Coronal and Sagittal reconstruction series were provided. One or more dose reduction techniques were used (e.g., Automated exposure control, adjustment of the mA and/or kV according to patient size, use of iterative reconstruction technique Study performed without and with 100 cc of Isovue 370. Images obtained in the multiphasic fashion FINDINGS: There is a fat containing lesion in the lower pole of the right kidney compatible with an angiomyolipoma. No hydronephrosis. No renal calculi. Prior cholecystectomy. There is a hyperdense mass in the lower pole of the left kidney which measures about 2 Hounsfield units. On venous phase imaging, this measures 5 Hounsfield units average. On delayed imaging, there is no enhancement. Normal pancreas. Normal bowel. No free-fluid. No free air. No bowel obstruction. 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 Nonenhancing cyst on the left. No solid masses. OVERALL FINAL ASSESSMENT: . LI-RADS is not meant to be used in patients <18 years or patients with cirrhosis due to congenital hepatic fibrosis or due to vascular disorders, because these patients have a lower chance of developing HCC. Reading [facility] CC: Dr. Jean Long MD; NOLAN Haley Critical Care Physician: Signed Normal [facility] Creatinine measurement at be dsideOrdered By: Jean Long on 08-25-2024 Creatinine [Mass/Vol] 1.2 mg/dL High 0.55-1.02 [facility] EGFROrdered By: Jean Long on 08-25-2024 GFR/1.73 sq M.predicted among non-blacks MDRD (S/P/Bld) [Vol rate/Area] 46.0000 mL/min/{1.73_m2} Low >60 [facility] CNPNon 08-09-2024 CNPN Telephone (FAMPWS) DOLORES BARNHART ([id number]) 1960 F Date Time Provider Department 08/09/24 [facility] During your visit today, we recorded the following information about you: Suri Granados, RN 08/09/2024 5:41 PM Signed Toshia Mosqueda MA LS 08/09/24 3:27 PM Note Message left for return call. Toshia Mosqueda MA 08/09/24 3:25 PM Toshia Mosqueda MA attempted to contact Dolores Barnhart (Left Message) 08/09/24 3:10 PM Jean Long MD routed this conversation to [facility] Jean Parikh MD 08/09/24 3:10 PM Note ??? For a ct scan right.Can we check what is going on with the patient since she has literally had these before. I honestly don't know that I have ever had anyone need sedated for a ct scan. 08/09/24 2:40 PM Toshia Mosqueda MA routed this conversation to Jean Long MD Schmidt, Lindsey, MA LS 08/09/24 2:39 PM Note Radiology dept called and states patient could not complete the scan. Tech states before patients head barely got through the [place] band she was distraught and crying and panicky. Tech states for this scan a bolus has to be placed in patients abdomen so she has to be able to remain still. If need is detrimental tech recommends sedative but states then the patient must be accompanied with a courier driver. GELA Pearson Barbara, RN 08/09/2024 7:08 PM Signed Pt returned the call and states the bar got too close to her chin and she got clautrophobic and got super anxious during her CT scan today. She states the CT scan machine at the hospital is different than this one. It doesn't come as close to her face. Pt would like to have CT scan done at [facility] where she has had them before. Jean Long MD 08/10/2024 9:46 AM Signed Can we reorder at [facility] with previous order Cinthya Guerrero MA 08/10/2024 10:47 AM Signed Faxed order to [facility]. Left message for pt that order was faxed Lorene Nguyen RN 08/11/2024 2:27 PM Signed Patient calls to report that [facility] didn't receive the orders for CT. Re-faxed to [phone] with confirmation fax was received. PRIYA Moreno Amanda, RN 08/22/2024 3:15 PM Signed Thelma with [employer] at [facility] called in and reports Pt called and tried to scheduled. She states they don't have the authorization from [facility]. [facility] had told them she didn't have the referral for the order. I don't even see an order in for a CT scan. I'm not sure what order was faxed over to [facility], the one from 08/09/24 was discontinued. Please call Thelma back with [facility] and send information through to Veronica with [facility] referral, so she can work on the authorization. PRIYA Calle Lisa, MA 08/22/2024 4:19 PM Signed Referral has been placed. Cinthya Guerrero MA August 22, 2024 4:19 PM Allergies As of Date: 08/09/2024 Noted Allergy Reaction OXYCODONE 08/07/2010 11 - Vomiting AMITRIPTYLINE 07/25/2012 14 - Other: See Comments Comments: Caused palpatations AUGMENTIN (AMOXICILLIN-POT CLAVUL*05/31/2009 8 - GI Upset 11 - Vomiting CODEINE 04/01/2005 8 - GI Upset DOXYCYCLINE 04/11/2005 EGG 03/27/2013 8 - GI Upset LODINE XL (ETODOLAC) 04/11/2005 PREDNISONE 06/09/2007 1 - Mental Status Change PREVACID (LANSOPRAZOLE) 04/11/2005 PROZAC (FLUOXETINE HCL) 04/11/2005 Date Reviewed: 08/08/2024 Reviewed by: Eleanor Archer, RT(R) - Fully Assessed Reason for Visit: Patient problem [Other] Cmt: panic attack during CT scan Prescriptions as of 08/22/2024 - Omeprazole Magnesium (PRILOSEC OTC) 20 mg tablet Take 1 tablet by mouth two times a day. - citalopram (CELEXA) 40 mg tablet Take 1 tablet by mouth once daily. - gabapentin (NEURONTIN) 300 mg capsule Take 1 capsule by mouth three times a day for 180 days. - busPIRone (BUSPAR) 5 mg tablet Take 1 tablet by mouth three times a day. - tiZANidine (ZANAFLEX) 4 mg tablet Take 1 tablet by mouth two times a day as needed. Meds Comments as of 01/22/2017: 01/22/17 Takes Celexa and Prilosec. Out of Clonazepam. Negrita Cheek RN Problem List As Of Date 08/09/2024 Noted Resolved Positive Helicobacter pylori test [A04.8] [...] Anxiety neurosis [F41.1] 09/19/[address] of (more content not included)... Normal [facility] CNPNon 07-25-2024 CNPN Telephone (CHELLYWS) DOLORES BARNHART ([id number]) 1960 F Date Time Provider Department 07/25/24 [facility] During your visit today, we recorded the following information about you: Jean Long MD 07/25/2024 4:04 PM Signed Liver us shows fatty liver. Avoid any etoh and excess tylenol. Recheck labs in two weeks. Shows lump on the right kidney. Looks like they saw it on scan in 2022 at [facility] and thought it was a benign fatty lump. The us is not the best test but appears larger on discussion. Recommend scan of kidney. Jossy Singletary, PRIYA 07/25/2024 4:54 PM Signed Patient returned call and given provider's message below. Patient agreeable to labs in 2 weeks. Patient states she needs to think about the kidney MRI, as she is claustrophobic and knows she would have a panic attack. She states she is not comfortable with trying a sedative before the MRI. This nurse discussed possible option of an Open MRI, if this is something that could be done. Pt states she will call back in a couple days with her response. Jossy Singletary, Carol Salamanca RN 07/25/2024 4:49 PM Signed Left vm for pt to return call to nurse for provider's message. Jean Long MD 07/25/2024 4:55 PM Signed We could do a ct instead, would that work? Joy Gardiner LPN 07/26/2024 9:21 AM Signed Left message for patient to call office. Lorene Nguyen RN 07/26/2024 2:19 PM Signed Patient returns call and reports that she would be ok with doing a CT scan instead. PRIYA Moreno William J, MD 07/26/2024 3:26 PM Signed placed Joy Gardiner LPN 07/26/2024 3:34 PM Signed PSS could you please contact to help set up CT scan ordered for patient. Thank you! Tania Baptiste LPN 07/26/2024 3:51 PM Signed Patient calling to set up appt for her CT. Assisted with transfer to production planner scheduler to get CT Kidney appt set up. Toshia Mosqueda MA 08/09/2024 2:39 PM Signed Radiology dept called and states patient could not complete the scan. Tech states before patients head barely got through the [place] band she was distraught and crying and panicky. Tech states for this scan a bolus has to be placed in patients abdomen so she has to be able to remain still. If need is detrimental tech recommends sedative but states then the patient must be accompanied with a courier driver. GELA Pearson William J, MD 08/09/2024 3:10 PM Signed ??? For a ct scan right.Can we check what is going on with the patient since she has literally had these before. I honestly don't know that I have ever had anyone need sedated for a ct scan. Toshia Mosqueda MA 08/09/2024 3:27 PM Signed Message left for return call. GELA Pearson Lindsey, MA 08/10/2024 11:29 AM Signed See other phone note. Already addressed. Toshia Mosqueda MA Allergies As of Date: 07/25/2024 Noted Allergy Reaction OXYCODONE 08/07/2010 11 - Vomiting AMITRIPTYLINE 07/25/2012 14 - Other: See Comments Comments: Caused palpatations AUGMENTIN (AMOXICILLIN-POT CLAVUL*05/31/2009 8 - GI Upset 11 - Vomiting CODEINE 04/01/2005 8 - GI Upset DOXYCYCLINE 04/11/2005 EGG 03/27/2013 8 - GI Upset LODINE XL (ETODOLAC) 04/11/2005 PREDNISONE 06/09/2007 1 - Mental Status Change PREVACID (LANSOPRAZOLE) 04/11/2005 PROZAC (FLUOXETINE HCL) 04/11/2005 Date Reviewed: 07/24/2024 Reviewed by: Giselle Haines MA - Fully Assessed Reason for Visit: Results [95] Primary Visit Diagnosis:Other specified disorders of kidney and ureter [N28.89] Other Visit Diagnosis:Fatty liver [K76.0] Order(s):HEPATIC FUNCTION PNL [SQHFP] Order #: [id number] FUTURE GGT [SQGGT] Order #: [id number] FUTURE HEP ACUTE PANEL BL [SQHACUTP] Order #: [id number] FUTURE IRON AND TIBC [SQIRON] Order #: [id number] FUTURE FERRITIN [SQFERR] Order #: [id number] FUTURE ALPHA FETOPROTEIN [SQAFP] Order #: [id number] FUTURE SMOOTH MUSCLE AB SCR [SQSMTHS] Order #: [id number] FUTURE CT KIDNEY WO/W IVCON [1640812] Order #: [id number] FUTURE [] iv contrast (will be provided with radiology test)CT kidney wow Inject, intravenously, once for 1 dose.No IV access, insert saline lock prior to the beginning of sedation, infusion, injection of imaging exam. Discontinue saline lock post exam. If Pt. has a central line or IVAD, may access for administration according to line specific nursing protocol. Once exam is complete flush line and de-access according to line specific nursing protocol in the CT contrast administration guidelines link.Disp: 1 eachRfl: 0 Prescriptions as of 08/10/2024 - Omeprazole Magnesium (PRILOSEC OTC) 20 mg tablet Take 1 tablet by mouth two times a day. - citalopram (CELEXA) 40 mg tablet Take 1 tablet by mouth once daily. - gabapentin (NEURONTIN) 300 mg capsule Take 1 capsule by mouth three times a day for 180 days. - busPIRone (BUSPAR) 5 mg tablet Take 1 tablet by mouth th (more content not included)... Normal [facility] Bacteria Ur Culton Bacteria identified Cx Nom (U) ORGANISM ID: 1 50,000-<100,000 CFU/ml Mixed microbiota No further workup. Mixed microbiota can be due to???urine???contami nation with skin bacteria at time of collection or presence of a long-term urinary catheter. If a new culture is needed, please consider re-education of the patient on proper midstream collection technique or straight catheterization for???urine???collec tion. Normal [facility] Comment on above: Performed By: #### 6 30-4 ####[facility] [id number] [address] CNOVon 07-24-2024 CNOV Office Visit (UCWSTR) OBEYDOLORES El ([id number]) 1960 F Date Time Provider Department 07/24/24 6:00 PM [facility]TA [facility] During your visit today, we recorded the following information about you: Temperature Pulse Respiration Blood pressure 100.2 degrees 84/minute 18/minute 128/84 Weight 80.7 kg Ita Yarbrough PA-C 07/24/2024 6:34 PM Signed This note was created using [employer]. Subjective Dolores Barnhart is a 63 year old female. Patient is a 63-year-old female who complains of dysuria, urinary urgency and frequency that she states started earlier today. Patient denies fever, chills, hematuria, flank pain, nausea or other symptoms. Patient does have a history of urinary tract infection and states that her current symptoms are consistent with same. Review of Systems Genitourinary: Positive for dysuria, frequency and urgency. All other systems reviewed and are negative. Objective BP 128/84 (BP Site: Left Arm, BP Position: Sitting, BP Cuff Size: Regular Adult) Pulse 84 Temp 37.9 ?C (100.2 ?F) (Tympanic) Resp 18 Wt 80.7 kg (177 lb 14.6 oz) LMP 09/13/2006 SpO2 97% BMI 29.01 kg/m? Physical Exam Vitals and nursing note reviewed. Constitutional: Appearance: Normal appearance. She is normal weight. HENT: Head: Normocephalic and atraumatic. Right Ear: External ear normal. Left Ear: External ear normal. Nose: Nose normal. Mouth/Throat: Mouth: Mucous membranes are moist. Pharynx: Oropharynx is clear. Eyes: Extraocular Movements: Extraocular movements intact. Conjunctiva/sclera: Conjunctivae normal. Pupils: Pupils are equal, round, and reactive to light. Cardiovascular: Rate and Rhythm: Normal rate. Pulses: Normal pulses. Heart sounds: Normal heart sounds. Pulmonary: Effort: Pulmonary effort is normal. Breath sounds: Normal breath sounds. Abdominal: General: Abdomen is flat. Palpations: Abdomen is soft. Musculoskeletal: Cervical back: Normal range of motion and neck supple. Skin: General: Skin is warm and dry. Capillary Refill: Capillary refill takes less than 2 seconds. Neurological: General: No focal deficit present. Mental Status: She is alert and oriented to person, place, and time. Psychiatric: Mood and Affect: Mood normal. Behavior: Behavior normal. Thought Content: Thought content normal. Judgment: Judgment normal. Assessment and Plan Physical exam findings as noted above. Urinalysis is positive for leukocyte esterase and urine culture was ordered. Patient was provided with prescription for Keflex 500 mg and advised that results of urine culture be available in 2 days. Patient was informed that she will be contacted if there is a need to change her medication based on the sensitivity report. Patient verbalizes excellent understanding of the above instructions. CLINICAL IMPRESSION: Acute UTI ASSESSMENT/PLAN: 1. Pain with urination - ICD9: 788.1, ICD10: R30.9 (primary diagnosis) - UA DIP, URINE (POC) 2. Acute UTI - ICD9: 599.0, ICD10: N39.0 - CEPHALEXIN 500 MG CAPSULE - BACTERIAL CULTURE, URINE MDM Amount and/or Complexity of Data Reviewed Clinical lab tests: ordered and reviewed Risk of Complications, Morbidity, and/or Mortality Presenting problems: low Diagnostic procedures: low Management options: michelle Yarbrough PA-C Referring Provider: LILIAN SRIVASTAVA [[id number]] Allergies As of Date: 07/24/2024 Noted Allergy Reaction OXYCODONE 08/07/2010 11 - Vomiting AMITRIPTYLINE 07/25/2012 14 - Other: See Comments Comments: Caused palpatations AUGMENTIN (AMOXICILLIN-POT CLAVUL*05/31/2009 8 - GI Upset 11 - Vomiting CODEINE 04/01/2005 8 - GI Upset DOXYCYCLINE 04/11/2005 EGG 03/27/2013 8 - GI Upset LODINE XL (ETODOLAC) 04/11/2005 PREDNISONE 06/09/2007 1 - Mental Status Change PREVACID (LANSOPRAZOLE) 04/11/2005 PROZAC (FLUOXETINE HCL) 04/11/2005 Date Reviewed: 07/24/2024 Reviewed by: Giselle Haines MA - Fully Assessed Reason for Visit: Urinary Problem [252] Cmt: Burning with urination since this morning. Primary Visit Diagnosis:Pain with urination [R30.9] Other Visit Diagnosis:Acute UTI [N39.0] Order(s):UA DIP, URINE (POC) [3916606] Order #: [id number]. #:[id number] cephALEXin (KEFLEX) 500 mg capsuleTake 1 capsule by mouth four times daily for 7 days.Disp: 28 capsuleRfl: 0 BACTERIAL CULTURE, URINE [SQURCUL] Order #: [id number] FUTURE BACTERIAL CULTURE, URINE [SQURCUL] Order #: [id number]. #:[id number] Prescriptions as of 07/25/2024 - cephALEXin (KEFLEX) 500 mg capsule Take 1 capsule by mouth four times daily for 7 days. - gabapentin (NEURONTIN) 300 mg capsule Take 1 capsule by mouth three times a day. - Omeprazole Magnesium (PRILOSEC OTC) 20 mg tablet Take 1 tablet by mouth two times a day. - busPIRone (BUSPAR) 5 mg tablet Take 1 tablet by mouth three ti (more content not included)... Normal [facility] UA DIP, URINE (POC)on 2024 BILIRUBIN UA (POCT) Negative Negative [facility] CLARITY UA (POCT) Slightly Cloudy [facility] COLOR UA (POCT) Other [facility] GLUCOSE UA (POCT) Negative Negative mg/dL [facility] Hemoglobin Ql (U) Negative Negative [facility] Interpretation and review of laboratory results Abnormal [facility] KETONE UA (POCT) Negative Negative mg/dL [facility] LEUKOCYTES UA (POCT) Trace Abnormal Negative [facility]) Negative Negative [facility] PH UA (POCT) 6.5 4.5 - 8.0 [facility] Protein Ql (U) Negative Negative mg/dL [facility] SPECIFIC GRAVITY UA (POCT) 1.015 1.005 - 1.030 [facility] UROBILINOGEN UA (POCT) 4 Abnormal Jhoana l E.U./dL [facility] Location:[address], [address] [place] [address] POINT OF CARE [facility] US ABD RIGHT UPPER QUADRANTo n 07-24-2024 US ABD RIGHT UPPER QUADRANT * * *Final Report* * * DATE OF EXAM: Jul 24 2024 4:11PM WRU 1032 - US ABD RIGHT UPPER QUADRANT / PROCEDURE REASON: Abnormal liver function test * * * * Physician Interpretation * * * * EXAMINATION: RIGHT UPPER QUADRANT ULTRASOUND CLINICAL HISTORY: Abnormal liver function tests TECHNIQUE: Sonography of the right upper quadrant was performed. Images were obtained and stored in a permanent archive and interpreted remotely. MQ: URUQ_2 COMPARISON: None. RESULT: Pancreas: Normal sonographic appearance. Portions obscured: tail Liver: Echotexture: Normal, homogeneous. Echogenicity: Increased Surface contour: Smooth Lesions: None. Biliary: No intrahepatic biliary duct dilation. CBD: 0.8 cm at the hilum. Gallbladder: Prior cholecystectomy Right Kidney: Normal cortical echogenicity. 1.4 x 2.0 x 2.2 cm right renal lower pole hyperechoic lesion. No hydronephrosis. Ascites: None. IMPRESSION: 1. Hepatic steatosis. 2. 2.2 cm right renal lower pole hyperechoic lesion is incompletely characterized sonographically though reportedly previously characterized as an angiomyolipoma on outside hospital CT. Correlate with prior outside hospital imaging and follow-up to document stability may be made. Critical Care Physician: LEEANN Transcribe Date/Time: Jul 25 2024 3:37P Dictated by : PRATIMA GHOSH MD This examination was interpreted and the report reviewed and electronically signed by: PRATIMA GHOSH MD on Jul 25 2024 3:39PM EST [id number] CN Normal [facility] CBC W Auto Differential pane l (Bld)on 07-11-2024 Basophils (Bld) [#/Vol] 0.05 10*3/uL Normal <0.11 [facility] Comment on above: Order Comment: Speci men Type: BLOOD SPECIMENOrdering Facility: [facility] Address: [address] [place] [address] Performed By: #### 5 7021-8 ####[facility] LABCLIA [id number] [place] [address] [place] Basophils/100 WBC (Bld) 0.7 % Normal [facility] Comment on above: Order Comment: Speci men Type: BLOOD SPECIMENOrdering Facility: [facility] Address: [address] [place] [address] Performed By: #### 5 7021-8 ####[facility] LABCLIA [id number] [place] [address] [place] Differential cell count method Nom (Bld) Auto Normal [facility] Comment on above: Order Comment: Speci men Type: BLOOD SPECIMENOrdering Facility: [facility] Address: [address] [place] [address] Performed By: #### 5 7021-8 ####[facility] LABCLIA [id number] [place] [address] [place] Eosinophils (Bld) [#/Vol] 0.09 10*3/uL Normal <0.46 [facility] Comment on above: Order Comment: Speci men Type: BLOOD SPECIMENOrdering Facility: [facility] Address: [address] [place] [address] Performed By: #### 5 7021-8 ####[facility] LABCLIA [id number] [address] [place] [address] [place] Eosinophils/100 WBC (Bld) 1.3 % Normal [facility] Comment on above: Order Comment: Speci men Type: BLOOD SPECIMENOrdering Facility: [facility] Address: [address] [place] [address] Performed By: #### 5 7021-8 ####[facility] LABCLIA [id number] [address], [place] [address] [place] Erythrocyte distribution width (RBC) [Ratio] 14.0 % Normal 11.5-15.0 [facility] Comment on above: Order Comment: Speci men Type: BLOOD SPECIMENOrdering Facility: [facility] Address: [address] [place] [address] Performed By: #### 5 7021-8 ####[facility] LABIA [id number] [place] [address] [place] Hematocrit (Bld) [Volume fraction] 42.1 % Normal 36.0-46.0 [facility] Comment on above: Order Comment: Speci men Type: BLOOD SPECIMENOrdering Facility: [facility] Address: [address] [place] [address] Performed By: #### 5 7021-8 ####[facility] LABCLIA [id number] [address], [place] [address] [place] Hemoglobin (Bld) [Mass/Vol] 13.1 g/dL Normal 11.5-15.5 [facility] Comment on above: Order Comment: Speci men Type: BLOOD SPECIMENOrdering Facility: [facility] Address: [address] [place] [address] Performed By: #### 5 7021-8 ####[facility] LABCLIA [id number] [address], [facility] [place] Immature granulocytes (Bld) [#/Vol] 0.06 10*3/uL Normal <0.10 [facility] Comment on above: Order Comment: Speci men Type: BLOOD SPECIMENOrdering Facility: [facility] Address: [address] [place] [address] Performed By: #### 5 7021-8 ####[facility] LABCLIA [id number] [place] [address] [place] Immature granulocytes/100 WBC (Bld) 0.9 % Normal [facility] Comment on above: Order Comment: Speci men Type: BLOOD SPECIMENOrdering Facility: [facility] Address: [address] [place] [address] Performed By: #### 5 7021-8 ####[facility] LABCLIA [id number] [place] [address] [place] Lymphocytes (Bld) [#/Vol] 1.35 10*3/uL Normal 1.00-4.00 [facility] Comment on above: Order Comment: Speci men Type: BLOOD SPECIMENOrdering Facility: [facility] Address: [address] [place] [address] Performed By: #### 5 7021-8 ####[facility] LABCLIA [id number] [address] [place] Lymphocytes/100 WBC (Bld) 19.3 % Normal [facility] Comment on above: Order Comment: Speci men Type: BLOOD SPECIMENOrdering Facility: [facility] Address: [address] [place] [address] Performed By: #### 5 7021-8 ####[facility] LABCLIA [id number] [place] [address] [place] MCH (RBC) [Entitic mass] 27.0 pg Normal 26.0-34.0 [facility] Comment on above: Order Comment: Speci men Type: BLOOD SPECIMENOrdering Facility: [facility] Address: [address] [place] [address] Performed By: #### 5 7021-8 ####[facility] LABCLIA [id number] [address], [facility] [place] MCHC (RBC) [Mass/Vol] 31.1 g/dL Normal 30.5-36.0 [facility] Comment on above: Order Comment: Speci men Type: BLOOD SPECIMENOrdering Facility: [facility] Address: [address] [place] [address] Performed By: #### 5 7021-8 ####[facility] LABCLIA [id number] [address], [place] [address] [place] MCV (RBC) [Entitic vol] 86.6 fL Normal 80.0-100.0 [facility] Comment on above: Order Comment: Speci men Type: BLOOD SPECIMENOrdering Facility: [facility] Address: [address] [place] [address] Performed By: #### 5 7021-8 ####[facility] LABIA [id number] [address], [place] [address] [place] Monocytes (Bld) [#/Vol] 0.55 10*3/uL Normal <0.87 [facility] Comment on above: Order Comment: Speci men Type: BLOOD SPECIMENOrdering Facility: [facility] Address: [address] [place] [address] Performed By: #### 5 7021-8 ####[facility] LABCLIA [id number] [place] [id number] [place] Monocytes/100 WBC (Bld) 7.9 % Normal [facility] Comment on above: Order Comment: Speci men Type: BLOOD SPECIMENOrdering Facility: [facility] Address: [address] [place] [address] Performed By: #### 5 7021-8 ####[facility] LABCLIA [id number] [place] [address] [place] Neutrophils (Bld) [#/Vol] 4.88 10*3/uL Normal 1.45-7.50 [facility] Comment on above: Order Comment: Speci men Type: BLOOD SPECIMENOrdering Facility: [facility] Address: [address] [place] [address] Performed By: #### 5 7021-8 ####[facility] LABCLIA [id number] [facility] [place] [address] [place] Neutrophils/100 WBC (Bld) 69.9 % Normal [facility] Comment on above: Order Comment: Speci men Type: BLOOD SPECIMENOrdering Facility: [facility] Address: [address] [place] [address] Performed By: #### 5 7021-8 ####[facility] LABCLIA [id number] [place] [address] [place] Nucleated RBC (Bld) [#/Vol] 10*3/uL Normal <0.01 [facility] Comment on above: Order Comment: Speci men Type: BLOOD SPECIMENOrdering Facility: [facility] Address: [address] [place] [address] Performed By: #### 5 7021-8 ####[facility] LABCLIA [id number] [place] [address] [place] Nucleated RBC/100 WBC (Bld) [Ratio] 0.0 /100 WBC Normal [facility] Comment on above: Order Comment: Speci men Type: BLOOD SPECIMENOrdering Facility: [facility] Address: [address] [place] [address] Performed By: #### 5 7021-8 ####[facility] LABCLIA [id number] [place] [address] [place] Platelet mean volume (Bld) [Entitic vol] 10.9 fL Normal 9.0-12.7 [facility] Comment on above: Order Comment: Speci men Type: BLOOD SPECIMENOrdering Facility: [facility] Address: [address] [place] [address] Performed By: #### 5 7021-8 ####[facility] LABIA [id number] [place] [address] [place] Platelets (Bld) [#/Vol] 210 10*3/uL Normal 150-400 [facility] Comment on above: Order Comment: Speci men Type: BLOOD SPECIMENOrdering Facility: [facility] Address: [address] [place] [address] Result Comment: Resu lts checked and verified.No clot detected. Performed By: #### 5 7021-8 ####[facility] [id number] [place] [address] [place] RBC (Bld) [#/Vol] 4.86 10*6/uL Normal 3.90-5.20 [facility] Comment on above: Order Comment: Speci men Type: BLOOD SPECIMENOrdering Facility: [facility] Address: [address] [place] [address] Performed By: #### 5 7021-8 ####[facility] [id number] [place] [address] [place] WBC (Bld) [#/Vol] 6.98 10*3/uL Normal 3.70-11.00 [facility] Comment on above: Order Comment: Speci men Type: BLOOD SPECIMENOrdering Facility: [facility] Address: [address] [place] [address] Performed By: #### 5 7021-8 ####[facility] LABIA [id number] [place] [address] [place] CNOVon 07-11-2024 CNOV Office Visit (FAMPWS) DOLORES BARNHART ([id number]) 1960 F Date Time Provider Department 07/11/24 3:20 PM LILIAN SRIVASTAVA During your visit today, we recorded the following information about you: Temperature Pulse Blood pressure Weight 98.9 degrees 84/minute 124/84 80.7 kg Lilian Srivastava APRN.CNP 07/11/2024 3:41 PM Signed Chief Reason For Appointment No chief complaint on file. Dolores Barnhart is a 63 year old female who presents for annual exam. Last office visit date: 06/21/2023 Accompanied By self only Have you had any critical events, hospital stays, ER visits, surgeries or procedures since your last visit here in our office: No Specialists/Other Healthcare Providers Seen: Patient Care Team: Chaparrita Newman APRN.CNP as Wetlands Technician (Family Medicine) Lilian Srivastava APRN.CNP as Wetlands Technician (Family Medicine) Concerns today: Grief. Lost Mom, younger sister, and 2 uncles. Good support. HPI Eating ok. Sleeping affected. Tearful often as states. Trazodone gave her hallucinations. Active Problems ACTIVE PROBLEM LIST Palpitations - 11/27/2021 Comment: 11/26/2021 presented to [facility] emergency department feeling of palpitations over the [...] had not yet scheduled follow-up with urology. Aortic Disorder - 05/10/2021 Comment: 09/16/21 Mild scattered aortoiliac atherosclerotic calcifications with diffuse thickening of the wall of the abdominal aorta and proximal common iliac arteries concerning for arteritis such as giant cell arteritis. Consult to vascular surgery placed. 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 Has f/u with Dr. Arthur for EGD and colonoscopy but cancelled and did not follow up. 03/05/[address] [facility] CT abd/pev WO: distal descending focal inflammatory/ diverticulitis; borderline hepatosplenomegaly, atrophic left kidney Anxiety Neurosis - 09/19/2015 Comment: September 06, 2017 Treated in the past with Ativan, Klonopin both with improvement over many years. Previous trials with amitriptyline, buspirone, bupropion, paroxetine were unhelpful. Myofascial Pain - 10/16/2013 Comment: 10/16/[address] Arsalan Salinas pain management. Neck Pain, Chronic - 01/18/2013 Comment: 10/07 (more content not included)... Normal [facility] Comprehensive metabolic 2000 panelon 07-11-2024 Albumin [Mass/Vol] 4.3 g/dL Normal 3.9-4.9 [facility] Comment on above: Order Comment: Speci men Type: BLOOD SPECIMENOrdering Facility: [facility] Address: [address] [place] [address] Performed By: #### 2 4323-8, 3015-3, 32132-1, LIPNF ####[facility] LABCLIA [id number] [place] [address] [place] ALP [Catalytic activity/Vol] 73 U/L Normal 34-123 [facility] Comment on above: Order Comment: Speci men Type: BLOOD SPECIMENOrdering Facility: [facility] Address: [address] [place] [address] Performed By: #### 2 4323-8, 6-3, , LIPNF ####[facility] LABCLIA [id number] [place] [id number] [place] ALT [Catalytic activity/Vol] 81 U/L High 7-38 [facility] Comment on above: Order Comment: Speci men Type: BLOOD SPECIMENOrdering Facility: [facility] Address: [address] [place] [address] Performed By: #### 2 4323-8, 6-3, 50102-8, LIPNF ####[facility] LABCLIA [id number] [place] [id number] [place] Anion gap [Moles/Vol] 10 mmol/L Normal 8-15 [facility] Comment on above: Order Comment: Speci men Type: BLOOD SPECIMENOrdering Facility: [facility] Address: [address] [place] [address] Performed By: #### 2 4323-8, 3016-3, 71734-9, LIPNF ####[facility] LABCLIA [id number] [place] [id number] [place] AST [Catalytic activity/Vol] 103 U/L High 13-35 [facility] Comment on above: Order Comment: Speci men Type: BLOOD SPECIMENOrdering Facility: [facility] Address: [address] [place] [address] Performed By: #### 2 4323-8, 6-3, , LIPNF ####[facility] LABCLIA [id number] [place] [address] [place] Bilirubin [Mass/Vol] 0.5 mg/dL Normal 0.2-1.3 [facility] Comment on above: Order Comment: Speci men Type: BLOOD SPECIMENOrdering Facility: [facility] Address: [address] [place] [address] Performed By: #### 2 4323-8, 6-3, , LIPNF ####[facility] LABCLIA [id number] [place] [id number] [place] Calcium [Mass/Vol] 9.3 mg/dL Normal 8.5-10.2 [facility] Comment on above: Order Comment: Speci men Type: BLOOD SPECIMENOrdering Facility: [facility] Address: [address] [place], [place] [address] Performed By: #### 2 4323-8, 3016-3, 63956-1, LIPNF ####[facility] LABCLIA [id number] [place] [address] [place] Chloride [Moles/Vol] 106 mmol/L Normal 98-107 [facility] Comment on above: Order Comment: Speci men Type: BLOOD SPECIMENOrdering Facility: [facility] Address: [address] [place] [address] Performed By: #### 2 4323-8, 3016-3, 41316-6, LIPNF ####[facility] LABCLIA [id number] [place] [address] [place] CO2 [Moles/Vol] 24 mmol/L Normal 22-30 [facility] Comment on above: Order Comment: Speci men Type: BLOOD SPECIMENOrdering Facility: [facility] Address: [address] [place] [address] Performed By: #### 2 4323-8, 3016-3, 64709-2, LIPNF ####[facility] LABCLIA [id number] [place] [address] [place] Creatinine [Mass/Vol] 1.06 mg/dL High 0.58-0.96 [facility] Comment on above: Order Comment: Speci men Type: BLOOD SPECIMENOrdering Facility: [facility] Address: [address] [place] [address] Performed By: #### 2 4323-8, 3016-3, 40497-5, LIPNF ####[facility] LABCLIA [id number] [place] [address] [place] Creatinine and Glomerular filtration rate.predicted panel (S/P/Bld) 59 mL/min/1.73m??? Low >=60 [facility] Comment on above: Order Comment: Speci men Type: BLOOD SPECIMENOrdering Facility: [facility] Address: [address] [place] [address] Result Comment: Silvana mated Glomerular Filtration Rate (eGFR) is calculated using the 2020 CKD-EPI creatinine equation. This equation utilizes serum creatinine, sex, and age as parameters. The creatinine assay has traceable calibration to isotope dilution-mass spectrometry. Refer to KDIGO guidelines for clinical interpretation. In patients with unstable renal function, e.g. those with acute kidney injury, the eGFR may not accurately reflect actual GFR. Performed By: #### 2 4323-8, 3015-3, , LIPNF ####[facility] LABCLIA [id number] [address] [address] [place] Glucose [Mass/Vol] 106 mg/dL High 74-99 [facility] Comment on above: Order Comment: Tono marshall Type: BLOOD SPECIMENOrdering Facility: [facility] Address: [address] [place] [address] Result Comment: The [place] Diabetes Association (ADA) provides guidance for cutoff values for fasting glucose and random glucose. The ADA defines fasting as no caloric intake for at least 8 hours. Fasting plasma glucose results between 100 to 125 mg/dL indicate increased risk for diabetes (prediabetes). Fasting plasma glucose results greater than or equal to 126 mg/dL meet the criteria for diagnosis of diabetes. In the absence of unequivocal hyperglycemia, results should be confirmed by repeat testing. In a patient with classic symptoms of hyperglycemia or hyperglycemic crisis, random plasma glucose results greater than or equal to 200 mg/dL meet the criteria for diagnosis of diabetes. Reference: Standards of Medical Care in Diabetes 2016, [place] [employer] Association. Diabetes Care. 2016.39(Suppl 1). Performed By: #### 2 4323-8, 3015-05, , LIPNF ####[facility] LABCLIA [id number] [facility] [address] [address] [place] Potassium [Moles/Vol] 5.1 mmol/L Normal 3.7-5.1 [facility] Comment on above: Order Comment: Tono marshall Type: BLOOD SPECIMENOrdering Facility: [facility] Address: [address] [place] [address] Performed By: #### 2 4323-8, 3015-3, , LIPNF ####[facility] LABCLIA [id number] [address] [address] [place] Protein [Mass/Vol] 7.2 g/dL Normal 6.3-8.0 [facility] Comment on above: Order Comment: Speci men Type: BLOOD SPECIMENOrdering Facility: [facility] Address: [address] [place] [address] Performed By: #### 2 4323-8, 3016-3, 99683-0, LIPNF ####[facility] LABCLIA [id number] [place] [address] [place] Sodium [Moles/Vol] 140 mmol/L Normal 136-144 [facility] Comment on above: Order Comment: Speci men Type: BLOOD SPECIMENOrdering Facility: [facility] Address: [address] [place] [address] Performed By: #### 2 4323-8, 6-3, 18309-1, LIPNF ####[facility] LABCLIA [id number] [place] [address] [place] Urea nitrogen [Mass/Vol] 18 mg/dL Normal 7-21 [facility] Comment on above: Order Comment: Speci men Type: BLOOD SPECIMENOrdering Facility: [facility] Address: [address] [place] [address] Performed By: #### 2 4323-8, 6-3, 41674-9, LIPNF ####[facility] LABCLIA [id number] [place] [address] [place] HbA1c (Bld)on 07-11-2024 Average glucose Estimated from glycated hemoglobin (Bld) [Mass/Vol] 108 mg/dL Normal [facility] Comment on above: Order Comment: Speci men Type: BLOOD SPECIMENOrdering Facility: [facility] Address: [address] [place] [address] Result Comment: eAG: (Estimated average glucose) is a calculated value from HgbA1c and is used equipment sales representative of the average blood glucose level in the last 2-3 month period. Performed By: #### 5 5454-3 ####[facility] LABCLIA [id number] [address] [address] [place] HbA1c (Bld) [Mass fraction] 5.4 % Normal 4.3-5.6 [facility] Comment on above: Order Comment: Cristyi men Type: BLOOD SPECIMENOrdering Facility: [facility] Address: [address] [place] [address] Result Comment: [place] Diabetes Association guidelines indicate that patients with HgbA1c in the range 5.7-6.4% are at increased risk for development of diabetes, and intervention by lifestyle modification may be beneficial. HgbA1c greater or equal to 6.5% is considered diagnostic of diabetes. Performed By: #### 5 5454-3 ####[facility] LABCLIA [id number] [place] [id number] [place] LIPID PANEL, NONFASTINGon Cholesterol [Mass/Vol] 204 mg/dL High <200 [facility] Comment on above: Order Comment: Speci men Type: BLOOD SPECIMENOrdering Facility: [facility] Address: [address] [place] [address] Result Comment: <200 mg/dL, Desirable 200-239 mg/dL, Borderline high >239 mg/dL, High Performed By: #### 2 4323-8, 3016-3, 31820-4, LIPNF ####[facility] LABCLIA [id number] [place] [id number] [place] HDL CHOLESTEROL, NF 50 mg/dL Normal >39 [facility] Comment on above: Order Comment: Speci [facility] Type: BLOOD SPECIMENOrdering Facility: [facility] Address: [address] [place] [address] Result Comment: 40-5 9 mg/dL, Acceptable >59 mg/dL, High: Negative risk factor for coronary heart disease <40 mg/dL, Low: Positive risk factor for coronary heart disease Performed By: #### 2 4323-8, 3016-3, , LIPNF ####[facility] LABCLIA [id number] [place] [address] [place] LDL CHOLESTEROL, NF 134 mg/dL High <100 [facility] Comment on above: Order Comment: Tono marshall Type: BLOOD SPECIMENOrdering Facility: [facility] Address: [address] [place] [address] Result Comment: <100 mg/dL, Optimal 100-129 mg/dL, Near optimal/above optimal 130-159 mg/dL, Borderline high 160-189 mg/dL, High >189 mg/dL, Very high Secondary prevention optimal LDL Cholesterol levels are recommended to be < 70 mg/dL Performed By: #### 2 4323-8, 6-3, , LIPNF ####[facility] [id number] [address] [place] LDL/HDL RATIO, NF 2.68 mg/dL High <2.54 [facility] Comment on above: Order Comment: Tono marshall Type: BLOOD SPECIMENOrdering Facility: [facility] Address: [address] [place] [address] Result Comment: Refe rence: 1. National Cholesterol Education Program ATP III Guideline At-A-Glance Quick Desk Reference: National Heart, Lung, and Blood [place]. National Institutes of Health. 2001: NIH Publication No. 01-3305. 2. An International Atherosclerosis Society position paper: global recommendations for the management of dyslipidemia: executive summary, Atherosclerosis. 2014: 232(2):410-413. Performed By: #### 2 4323-8, 6-3, , LIPNF ####[facility] [id number] [place] [id number] [place] NON HDL CHOL, NF 154 mg/dL High <130 [facility] Comment on above: Order Comment: Tono joanna Type: BLOOD SPECIMENOrdering Facility: [facility] Address: [address] [place] [address] Result Comment: <130 mg/dL, Optimal 130-159 mg/dL, Near optimal/above optimal 160-189 mg/dL, Borderline high 190-219 mg/dL, High >219 mg/dL, Very high Secondary prevention optimal non HDL Cholesterol levels are recommended to be <100 mg/dL Performed By: #### 2 4323-8, 6-3, , LIPNF ####[facility] LABCLIA [id number] [address] [place] [address] [place] T CHOL/HDL RATIO NF 4.08 mg/dL Normal <5.10 [facility] Comment on above: Order Comment: Speci men Type: BLOOD SPECIMENOrdering Facility: [facility] Address: [address] [place] [address] Performed By: #### 2 4323-8, 3, , LIPNF ####[facility] LABCLIA [id number] [address] [place] [address] [place] TRIGLYCERIDES, NF 98 mg/dL Normal <150 [facility] Comment on above: Order Comment: Speci men Type: BLOOD SPECIMENOrdering Facility: [facility] Address: [address] [place] [address] Result Comment: <150 mg/dL, Normal 150-199 mg/dL, Borderline high 200-499 mg/dL, High >499 mg/dL, Very high Performed By: #### 2 4323-8, 3015-3, , LIPNF ####[facility] LABCLIA [id number] [address] [place] [address] [place] VLDL CHOLESTEROL, NF 20 mg/dL Normal <30 [facility] Comment on above: Order Comment: Speci men Type: BLOOD SPECIMENOrdering Facility: [facility] Address: [address] [place] [address] Performed By: #### 2 4323-8, 3015-3, , LIPNF ####[facility] LABCLIA [id number] [address] [place] [address] [place] Magnesium SerPl-mCncon 07-11 Magnesium [Mass/Vol] 1.9 mg/dL Normal 1.7-2.3 [facility] Comment on above: Order Comment: Speci men Type: BLOOD SPECIMENOrdering Facility: [facility] Address: [address] [place] [address] Performed By: #### 2 4323-8, 3016-3, 01341-6, LIPNF ####[facility] LABCLIA [id number] [place] [address] [place] TSH SerPl-aCncon 07-11-2024 TSH Qn 1.290 m[IU]/L Normal 0.270-4.200 [facility] Comment on above: Order Comment: Speci men Type: BLOOD SPECIMENOrdering Facility: [facility] Address: [address] [place] [address] Performed By: #### 2 4323-8, 3016-3, , LIPNF ####[facility] LABIA [id number] [place] [address] [place] Vit B12 SerPl-mCncon 025 Cobalamin (Vitamin B12) [Mass/Vol] 285 pg/mL Normal 232-1245 [facility] Comment on above: Order Comment: Speci men Type: BLOOD SPECIMENOrdering Facility: [facility] Address: [address] [place] [address] Performed By: #### 2 132-9 ####[facility] LABIA [id number] [place] [address] [place] CNPNon 07-07-2024 CNPN Telephone (FAMPWS) DOLORES BARNHART ([id number]) 1960 F Date Time Provider Department 07/07/24 LILIAN SRIVASTAVA During your visit today, we recorded the following information about you: Joy GardinerDANY 07/07/2024 2:35 PM Signed Called patient and left a message. Asked her to call back so that we could fix her appt on 07/10/24 she is scheduled for 20 min and needs a 40 in transfer of care (physical) appt. (Looks like call center moved the original scheduled visit and didn't fix allotted time to 40 min.) Teri Chavez, PRIYA 07/07/2024 2:54 PM Signed Pt called and is notified of providers message. Pt voices understanding. Pt moved to 07/11/24 at 320 for 40 min with Lyndsay Srivastava DISTANCE EDUCATION COORDINATOR. Teri Chavez RN Allergies As of Date: 07/07/2024 Noted Allergy Reaction OXYCODONE 08/07/2010 11 - Vomiting AMITRIPTYLINE 07/25/2012 14 - Other: See Comments Comments: Caused palpatations AUGMENTIN (AMOXICILLIN-POT CLAVUL*05/31/2009 8 - GI Upset 11 - Vomiting CODEINE 04/01/2005 8 - GI Upset DOXYCYCLINE 04/11/2005 EGG 03/27/2013 8 - GI Upset LODINE XL (ETODOLAC) 04/11/2005 PREDNISONE 06/09/2007 1 - Mental Status Change PREVACID (LANSOPRAZOLE) 04/11/2005 PROZAC (FLUOXETINE HCL) 04/11/2005 Date Reviewed: 06/01/2024 Reviewed by: Keven Lawrence APRN.BANQUET DIRECTOR - Fully Assessed Reason for Visit: Appointment [186] Prescriptions as of 07/07/2024 - citalopram (CELEXA) 40 mg tablet Take 1 tablet by mouth once daily. - gabapentin (NEURONTIN) 300 mg capsule Take 1 capsule by mouth three times a day for 30 days. - Omeprazole Magnesium (PRILOSEC OTC) 20 mg tablet Take 1 tablet by mouth two times a day. - busPIRone (BUSPAR) 5 mg tablet Take 5 mg by mouth three times a day. - traZODone (DESYREL) 50 mg tablet Take 1 tablet by mouth daily at bedtime. - ferrous gluconate 324 mg (37.5 mg iron) tablet Take 1 tablet by mouth daily with breakfast. - cyanocobalamin (VITAMIN B-12) 1,000 mcg tab Take 1 tablet by mouth once daily. Meds Comments as of 01/22/2017: 01/22/17 Takes Celexa and Prilosec. Out of Clonazepam. Negrita Cheek RN Problem List As Of Date 07/07/2024 Noted Resolved Positive Helicobacter pylori test [A04.8] [...] 05/10/2021 Palpitations [R00.2] 11/27/2021 Encounter Status:Closed by TERI CHAVEZ on 07/07/24 Normal [facility] CNOVon 06-01-2024 CNOV Office Visit (UCWSTR) DOLORES BARNHART ([id number]) 1960 F Date Time Provider Department 06/01/24 4:45 PM [facility] During your visit today, we recorded the following information about you: Temperature Pulse Respiration Blood pressure 98.8 degrees 87/minute 20/minute 154/93 Weight 82 kg Keven Lawrence APRN.BANQUET DIRECTOR 06/01/2024 5:05 PM Signed [facility] Subjective Dolores Barnhart is a 63 year old female. Nontoxic. 63-year-old female presents urgent care chief complaint sinus pressure cough. Duration of symptoms on and off for 1 month. States has been dealing with this over the past 3 to 4 weeks. Has worsened over the last week. OTC medications with no success. Denies any chest pain shortness of breath or hemoptysis. No pleuritic pain. Past medical history prescription medications allergies reviewed. .Patient presents with: Nasal Congestion: Sinus congestion, headache, ear pain clogged, bilat, sneezing, pressure and pain x 1 month PAST MEDICAL HISTORY Diagnosis Date Abnormal CT [...] CT abd/ pel 05/28/15 treated in ED [facility]. Has f/u with Dr. Arthur for EGD [...] Prevacid [Lansoprazole], and Prozac [Fluoxetine Hcl] MEDICATIONS busPIRone (BUSPAR) 5 mg tablet Take 5 mg by mouth three times a day. Omeprazole Magnesium (PRILOSEC OTC) 20 mg tablet Take 1 tablet by mouth two times a day. gabapentin (NEURONTIN) 300 mg capsule Take 1 capsule by mouth three times a day for 90 days. citalopram (CELEXA) 40 mg tablet Take 1 tablet by mouth once daily. traZODone (DESYREL) 50 mg tablet Take 1 tablet by mouth daily at bedtime. (Patient not taking: Reported on 06/01/2024) ferrous gluconate 324 mg (37.5 mg iron) tablet Take 1 tablet by mouth daily with breakfast. (Patient not taking: Reported on 06/01/2024) cyanocobalamin (VITAMIN B-12) 1,000 mcg tab Take 1 tablet by mouth once daily. (Patient not taking: Reported on 06/01/2024) FAMILY HISTORY Problem Relation Age of Onset Diabetes Father Cervical Cancer Paternal Grandmother Stroke Paternal Grandfather Psychiatry Mother Heart Father Hypertension Father Social History Tobacco Use Smoking statu (more content not included)... Normal [facility] Emergency Department Summary on 09-02-2023 Emergency Department Summary [facility] Medical Records Department [address] [place] [address] Emergency Department Summary 09/02/23 MR#: [id number] Acct: [id number] Name: DOLORES BARNHART Rep #: [id number] : 1960 62 From: Effie Castillo MD PCP: NOLAN Haley Status:DEP ER Location: ED HPI History of Present Illness Chief Complaint: Back Informant: patient Onset/Context/Timing Onset: Days (4 days) Context: Gradual Onset Timing: Waxes and wanes Quality: Aching Location: Lumbar Narrative Narrative: Patient presents secondary to back pain. She reports back pain for the past 4 days with no specific injury. She does do a lot of lifting and her every day activities but does not remember anything where she hurt her back. Pain does not radiate down her legs. It does wrap around her lower back to her hip area. She states she initially had some mild anterior abdominal pain but that is completely resolved. She is a history of kidney stones as well as diverticulitis but does not believe this feels similar. Patient has been taking ibuprofen every 4-6 hours. PFSH PFSH Medical History Diverticulosis Kidney stones GERD (gastroesophageal reflux disease) Anxiety Depression Home Medications ???Medication ???Instructions ???Recorded ???Last Taken ???Type citalopram 20 mg tablet 40 mg PO DAILY depression 06/05/13 04/30/18 10:00 History Omeprazole [Prilosec] 40 mg PO BID gerd 09/26/14 04/30/18 10:00 History clonazepam 0.5 mg tablet (Klonopin) 0.25 mg PO PRN PRN Anxiety 09/06/17 04/30/18 22:00 History sulfamethoxazole 800 0.5 tab (1/2 x 800-160 mg) PO BID 06/22/22 Unknown Rx mg-trimethoprim 160 mg tablet #20 TABLETS ciprofloxacin HCl 500 mg tablet 500 mg PO BID #20 tabs 02/24/23 Unknown Rx (Cipro) metronidazole 500 mg tablet 500 mg PO TID #30 tabs 02/24/23 Unknown Rx cyclobenzaprine 10 mg tablet 10 mg PO TID PRN Muscle Spasm #20 09/02/23 Unknown Rx TABLETS Allergy/AdvReac Type Severity Reaction Status Date / Time Egg Derived AdvReac Nausea/Vom/ Verified 09/02/23 17:07 Diarrhea prednisone AdvReac Other Verified 09/02/23 17:07 Surgical History History of cholecystectomy Social History household members: none Smoking Status: Current every day smoker tobacco type: e-cigarettes substance use type: does not use ROS ROS ED Constitutional Constitutional ED: Denies chills or fever(s) Eyes Eyes: Denies change in vision ENT ENT ED: Denies rhinorrhea or sore throat Cardiovascular Cardiovascular: Denies chest pain Respiratory/Chest Respiratory/Chest: Denies cough or dyspnea Gastrointestinal Gastrointestinal: Denies abdominal pain, nausea or vomiting Genitourinary Genitourinary ED: Denies dysuria, hematuria or urinary frequency Musculoskeletal Musculoskeletal: Reports back pain; Denies extremity pain Integumentary Denies Abrasions or rash Neurologic Neurologic: Denies headache(s) or weakness Psychiatric Psychiatric: Denies anxiety or depression Allergic/Immunologic Allergic/Immunologic ED: Denies lip swelling or urticaria EXAM Physical Exam Const Vital Signs: 09/02/23 17:07 Temperature 98.9 F Temperature Source Temporal Pulse Rate 95 Respiratory Rate 14 Blood Pressure 127/79 H Blood Pressure Mean 95 Pulse Ox 98 Oxygen Delivery Method Room Air Positive well nourished and well developed General Appearance ED: well developed HEENT Reports moist mucous membranes Eyes EOMs intact bilaterally Resp normal respiratory effort and clear to auscultation bilaterally Cardio regular rate and regular rhythm GI soft to palpation and non-tender Back/Spine Back/Spine Narrative: Bilateral lumbar paraspinal tenderness. No erythema or overlying skin change. Extremity normal to inspection Neuro oriented x3 and no sensory deficits noted Motor Exam: strength 5/5 throughout Psych mental status grossly normal Skin no rashes or lesions noted MDM MDM MDM Narrative Medical decision making narrative: Patient will be given Tylenol and a Lidoderm patch here. She has been taking ibuprofen regularly and did drive herself to the emergency room. Urinalysis will be obtained to evaluate for any evidence of hematuria or infection. Lab Data Labs: Laboratory Results - last 24 hr 09/02/23 18:40 Urine Color Yellow Urine Clarity Clear Urine pH 6.0 Ur Specific [place] 1.015 Urine Protein 30 H Urine Glucose (UA) Normal Urine Ketones 5 H Urine Occult Blood Negative Urine Nitrite Negative Urine Bilirubin 1 H Urine Urobilinogen 4 H Ur Leukocyte Esterase 25 H Urine RBC 0 (more content not included)... Normal [facility] Urinalysis, Completeon 09-01 BACTERIA 0 SEEN Normal None Seen [facility] Comment on above: Order Comment: CLEAN CATCH Performed By: #### L 400.0001 #### [facility] [address] [place], [place], [id number] EPI,SQUAMOUS 0 SEEN Normal 5-10 [facility] Comment on above: Order Comment: CLEAN CATCH Performed By: #### L 400.0001 #### [facility] [address] [place], [address] Mucus Ql (Urine sed) 0 SEEN Normal [facility] Comment on above: Order Comment: CLEAN CATCH Performed By: #### L 400.0001 #### [facility] [address] [place], [address] RBC 0 SEEN Normal 0-5 [facility] Comment on above: Order Comment: CLEAN CATCH Performed By: #### L 400.0001 #### [facility] [address] [place], [address] WBC 0 SEEN Normal 0-5 [facility] Comment on above: Order Comment: CLEAN CATCH Performed By: #### L 400.0001 #### [facility] [address] [place], [place], [id number] Absolute lymphocyte countOrd ered By: Arsalan Eldridge on 02-24-2023 Lymphocytes Auto (Unsp spec) [#/Vol] 1.23 10*3/uL 0.83-4.51 [facility] Basophil percentageOrdered B y: Arsalan Eldridge on 02-24-2023 Basophil percentage 10-25 SEEN /hpf 0-5 [facility] Basophils/100 WBC (Bld) 0.7 % 0-1 [facility] Bilirubin [Mass/Vol] 0.60 mg/dL 0.20-1.00 [facility] Comment on above: For patients on eltr ombopag therapy, use of Dimension [place] TBIL is not recommended. Chloride [Moles/Vol] 114 mmol/L 98-107 [facility] Eosinophils/100 WBC (Bld) 1.2 % 0-5 [facility] Glucose [Mass/Vol] 90 mg/dL 74-106 [facility] Neutrophils (Bld) [#/Vol] 4.2 10*3/uL 2.0-7.7 [facility] Neutrophils/100 WBC (Bld) 70.1 % 47-70 [facility] Potassium [Moles/Vol] 5.1 mmol/L 3.5-5.1 [facility] Comment on above: Moderate Hemolysis, Result may be falsely increased. Protein [Mass/Vol] 7.5 g/dL 6.4-8.2 [facility] Sodium [Moles/Vol] 141 mmol/L 136-145 [facility] WBC (Bld) [#/Vol] 6.0 10*3/uL 4.4-11.0 [facility] Bilirubin Test strip Ql (U)O rdered By: Arsalan Eldridge on 02-24-2023 Bilirubin Ql (U) Negative Negative [facility] Blood erythrocytes count (nu mber/volume)Ordered By: Arsalan Eldridge on 02-24-2023 RBC (Bld) [#/Vol] 4.75 10*6/uL 4.2-5.4 [facility] [place] [place] Blood hemoglobin measurement (mass/volume)Ordered By: Arsalan Eldridge on 02-24-2023 Hemoglobin (Bld) [Mass/Vol] 13.2 g/dL 12.0-15.0 [facility] Blood lymphocytes/100 leukoc ytesOrdered By: Arsalan Eldridge on 02-24-2023 Lymphocytes/100 WBC (Bld) 20.4 % 19-41 [facility] Blood monocytes/100 leukocyt esOrdered By: Arsalan Eldridge on 02-24-2023 Monocytes/100 WBC (Bld) 7.3 % 0-10 [facility] Blood platelet adequacy dete ction by light microscopyOrdered By: Arsalan Eldridge on 02-24-2023 Platelets LM Ql (Bld) ADEQUATE ADEQ [facility] Blood platelet mean volumeOr dered By: Arsalan Eldridge on 02-24-2023 Platelet mean volume (Bld) [Entitic vol] 10.9 fL 6.2-12.0 [facility] Determination of erythrocyte mean corpuscular volume (MCV)Ordered By: Arsalan Eldridge on 02-24-2023 MCV (RBC) [Entitic vol] 89.5 fL 81-99 [facility] Hematocrit Auto (Bld) [Volum e fraction]Ordered By: Arsalan Eldridge on 02-24-2023 Hematocrit (Bld) [Volume fraction] 42.5 % 37-47 [facility] Ketones Test strip Ql (U)Ord ered By: Arsalan Eldridge on 02-24-2023 Ketones Ql (U) Negative Negative [facility] - Chemistry and C hemistry - challengeOrdered By: Arsalan Eldridge on 02-24-2023 ALP [Catalytic activity/Vol] 59 U/L 45-117 [facility] ALT [Catalytic activity/Vol] 67 U/L 13-56 [facility] CO2 [Moles/Vol] 25.0 mmol/L 21.0-32.0 [facility] Globulin (S) [Mass/Vol] 4.1 g/dL 2.2-4.2 [facility] Lipase [Catalytic activity/Vol] 24 U/L 13-75 [facility] Comment on above: Please note:LIPASE r evised reference range effective 22. New Lipase methodology. Expected to produce lower values than the previous assay method. NEW Reference Range: 13 - 75 U/L Urea nitrogen/Creatinine [Mass ratio] 8.0 mg/mg 10-20 [facility] - Hematology and Cell countsOrdered By: Arsalan Eldridge on 02-24-2023 Anisocytosis Ql (Bld) RARE [facility] Erythrocyte distribution width (RBC) [Entitic vol] 42.5 fL 35.1-43.9 [facility] Erythrocyte distribution width (RBC) [Ratio] 12.8 % 11.6-14.6 [facility] Immature granulocytes/100 WBC (Bld) 0.300 % 0.0-0.9 [facility] Comment on above: IG% - Immature Granu locytes (promyelocytes, myelocytes and metamyelocytes) > 1% indicates that a LEFT SHIFT is Present. MCH (RBC) [Entitic mass] 27.8 pg 27.0-32.0 [facility] Nucleated RBC/100 WBC (Bld) [Ratio] 0 % 0-5 [facility] MCHC Auto (RBC) [Mass/Vol]Or dered By: Arsalan Eldridge on 02-24-2023 MCHC (RBC) [Mass/Vol] 31.1 g/dL 32-36 [facility] Macrocytes detectionOrdered By: Arsalan Eldridge on 02-24-2023 Macrocytes Ql (Bld) RARE [facility] Mucus LM Ql (Urine sed)Order ed By: Arsalan Eldridge on 02-24-2023 Mucus Ql (Urine sed) 0 SEEN /hpf [facility] Nitrite Test strip Ql (U)Ord ered By: Arsalan Eldridge on 02-24-2023 Nitrite Ql (U) Positive Negative [facility] No Panel InformationOrdered By: Arsalan Eldridge on 02-24-2023 Estimated Creatinine Clearance Calc 47.70 ml/min [facility] Estimated GFR (MDRD) Amer 63 mL/min >60 [facility] Comment on above: GFR Calc Estimated GFR (MDRD) Non-Af Amer 52 mL/min >60 [facility] Comment on above: Non- GFR Calc Urine Transitional Epithelial Cells 0-5 SEEN /hpf 0-5 [facility] Platelets bldOrdered By: Svitlana Eldridge on 02-24-2023 Platelets (Bld) [#/Vol] 169 10*3/uL 150-450 [facility] Protein Test strip Ql (U)Ord ered By: Arsalan Eldridge on 02-24-2023 Protein Ql (U) 15 mg/dl Negative [facility] RBC morphologyOrdered By: Nolan Eldridge on 02-24-2023 RBC morphology finding Nom (Bld) N CHROM NORMAL NORM C&C [facility] Serum or plasma albumin vannessa urement (mass/volume)Ordered By: Arsalan Eldridge on 02-24-2023 Albumin [Mass/Vol] 3.4 g/dL 3.2-5.0 [facility] Serum or plasma albumin/glob ulin mass ratioOrdered By: Arsalan Eldridge on 02-24-2023 Albumin/Globulin [Mass ratio] 0.8 {ratio} 0.9-2.4 [facility] Serum or plasma calcium vannessa urement (mass/volume)Ordered By: Arsalan Eldridge on 02-24-2023 Calcium [Mass/Vol] 8.3 mg/dL 8.5-10.1 [facility] Serum or plasma creatinine m easurement (mass/volume)Ordered By: Arsalan Eldridge on 02-24-2023 Creatinine [Mass/Vol] 1.13 mg/dL 0.55-1.02 [facility] Comment on above: The validity of the calculated GFR & GFRAA in patients over 70 years has not been determined. Clinical correlation is essential. Serum or plasma urea nitroge n measurement (mass/volume)Ordered By: Arsalan Eldridge on 02-24-2023 Urea nitrogen [Mass/Vol] 9 mg/dL 7-18 [facility] Squamous epithelial cells de tection in urine sediment by light microscopyOrdered By: Arsalan Eldridge on 02-24-2023 Epithelial cells.squamous LM Ql (Urine sed) 5-10 SEEN /hpf 5-10 [facility] Thin prep Papanicolaou smear with manual screeningOrdered By: Arsalan Eldridge on 02-24-2023 Thin prep Papanicolaou smear with manual screening 85 U/L 15-37 [facility] Comment on above: Moderate Hemolysis, Result may be falsely increased. Thin prep Papanicolaou smear with manual screening 2 5-15 [facility] Urine blood detectionOrdered By: Arsalan Eldridge on 02-24-2023 RBC Ql (U) Negative Negative [facility] RBC Ql (U) 0-5 SEEN /hpf 0-5 [facility] Urine clarityOrdered By: Svitlana Eldridge on 02-24-2023 Clarity (U) Sl. Cloudy Clear [facility] Urine color determinationOrd ered By: Arsalan Eldridge on 02-24-2023 Color (U) Yellow Yellow [facility] Urine glucose detectionOrder ed By: Arsalan Eldridge on 02-24-2023 Glucose Ql (U) Normal mg/dl Normal [facility] Urine leukocyte esterase det ection by dipstickOrdered By: Arsalan Eldridge on 02-24-2023 Leukocyte esterase Test strip Ql (U) 500 /ul Negative [facility] Urine pHOrdered By: Arsalan guerrero on 02-24-2023 pH (U) 6.0 [pH] 5.0 - 8.0 [facility] Urine sediment bacteria coun t by microscopy (number/high power field)Ordered By: Arsalan Eldridge on 02-24-2023 Bacteria LM.HPF (Urine sed) [#/Area] 3 /[HPF] None Seen [facility] Urine specific gravity measu rementOrdered By: Arsalan Eldridge on 02-24-2023 Specific gravity (U) [Rel density] 1.015 1.002-1.030 [facility] Urobilinogen Auto test strip Ql (U)Ordered By: Arsalan Eldridge on 02-24-2023 Urobilinogen Ql (U) 1 mg/dl Normal [facility] COVID & INFLUENZA A/B & RSV NAAT, ROUTINEon 02-12-2023 FLUAV RNA TOMAS+probe Ql (Unsp spec) Not detected Not Detected [facility] FLUBV RNA TOMAS+probe Ql (Unsp spec) Not detected Not Detected [facility] RSV A RNA TOMAS+probe Ql (Unsp spec) Not detected Not Detected [facility] SARS-CoV-2 (COVID-19) RNA TOMAS+probe Ql (Resp) Not detected See comment [facility] URINE CULTUREon 03-30-2022 Bacteria identified Cx Nom (U) >=100,000 CFU/ml Escherichia coli Abnormal [facility] UA DIP, URINE (POC)on 2021 BILIRUBIN UA (POCT) Negative Negative [facility] CLARITY UA (POCT) Cloudy [facility] COLOR UA (POCT) Yellow [facility] GLUCOSE UA (POCT) Negative Negative mg/dL [facility] HEMOGLOBIN/BLOOD UA (POCT) Small Abnormal Negative [facility] KETONE UA (POCT) Negative Negative mg/dL [facility] LEUKOCYTES UA (POCT) Large Abnormal Negative [facility] NITRITE UA (POCT) Positive Abnormal Negative [facility] PH UA (POCT) 7.0 4.5 - 8.0 [facility] Protein Ql (U) Trace Abnormal Negative mg/dL [facility] SPECIFIC GRAVITY UA (POCT) 1.015 1.005 - 1.030 [facility] UROBILINOGEN UA (POCT) 0.2 E.U./dL Jhoana l E.U./dL [facility] URINE CULTUREon 03-27-2022 Bacteria identified Cx Nom (U) Invalid Interpretation Code [facility] STREP A MOLECULAR (POC)on Procedural Control Valid [facility] Strep A (POCT) Negative Negative [facility] Absolute lymphocyte counton 01-21-2022 Lymphocytes Auto (Unsp spec) [#/Vol] 0.96 10*3/uL 0.83-4.51 [facility] Work Phone: Basophil percentageon 2021 Basophil percentage 0-5 SEEN /hpf 0-5 [facility] Work Phone: Basophils/100 WBC (Bld) 0.3 % 0-1 [facility] Work Phone: Bilirubin [Mass/Vol] 0.80 mg/dL 0.20-1.00 [facility] Work Phone: Comment on above: For patients on eltr ombopag therapy, use of Dimension [place] TBIL is not recommended. Chloride [Moles/Vol] 109 mmol/L 98-107 [facility] Work Phone: Eosinophils/100 WBC (Bld) 0.9 % 0-5 [facility] Work Phone: Glucose [Mass/Vol] 109 mg/dL 74-106 [facility] Work Phone: Comment on above: Fasting Glucose resu lt from 100 to 125 mg/dL suggests IMPAIRED HOMEOSTASIS per A.D.A. criteria. Neutrophils (Bld) [#/Vol] 5.1 10*3/uL 2.0-7.7 [facility] Work Phone: Neutrophils/100 WBC (Bld) 75.3 % 47-70 [facility] Work Phone: Potassium [Moles/Vol] 4.4 mmol/L 3.5-5.1 [facility] Work Phone: Comment on above: Slight Hemolysis, Re sult may be falsely increased. Protein [Mass/Vol] 7.8 g/dL 6.4-8.2 [facility] Work Phone: Sodium [Moles/Vol] 139 mmol/L 136-145 [facility] Work Phone: WBC (Bld) [#/Vol] 6.8 10*3/uL 4.4-11.0 [facility] Work Phone: Bilirubin Test strip Ql (U)o n 01-21-2022 Bilirubin Ql (U) Negative Negative [facility] Work Phone: Blood erythrocytes count (nu mber/volume)on 01-21-2022 RBC (Bld) [#/Vol] 4.68 10*6/uL 4.2-5.4 [facility] Work Phone: Blood hemoglobin measurement (mass/volume)on 01-21-2022 Hemoglobin (Bld) [Mass/Vol] 12.8 g/dL 12.0-15.0 [facility] Work Phone: Blood lymphocytes/100 leukoc yteson 01-21-2022 Lymphocytes/100 WBC (Bld) 14.2 % 19-41 [facility] Work Phone: Blood monocytes/100 leukocyt eson 01-21-2022 Monocytes/100 WBC (Bld) 8.9 % 0-10 [facility] Work Phone: Blood platelet adequacy dete ction by light microscopyon 01-21-2022 Platelets LM Ql (Bld) ADEQUATE ADEQ [facility] Work Phone: Blood platelet mean volumeon 01-21-2022 Platelet mean volume (Bld) [Entitic vol] 11.2 fL 6.2-12.0 [facility] Work Phone: Determination of erythrocyte mean corpuscular volume (MCV)on 01-21-2022 MCV (RBC) [Entitic vol] 86.8 fL 81-99 [facility] Work Phone: Direct bilirubinon 2 Bilirubin.direct [Mass/Vol] 0.16 mg/dL 0.00-0.30 [facility] Work Phone: Hematocrit Auto (Bld) [Volum e fraction]on 01-21-2022 Hematocrit (Bld) [Volume fraction] 40.6 % 37-47 [facility] Work Phone: Ketones Test strip Ql (U)on 01-21-2022 Ketones Ql (U) Negative Negative [facility] Work Phone: Laboratory - Chemistry and C hemistry - challengeon 01-21-2022 ALP [Catalytic activity/Vol] 71 U/L 45-117 [facility] Work Phone: ALT [Catalytic activity/Vol] 40 U/L 13-56 [facility] Work Phone: CO2 [Moles/Vol] 24.0 mmol/L 21.0-32.0 [facility] Work Phone: Globulin (S) [Mass/Vol] 4.0 g/dL 2.2-4.2 [facility] Work Phone: [phone] Lipase [Catalytic activity/Vol] 101 U/L 73-393 [facility] Work Phone: [phone] Urea nitrogen/Creatinine [Mass ratio] 11.7 mg/mg 10-20 [facility] Work Phone: [phone] Laboratory - Hematology and Cell countson 01-21-2022 Erythrocyte distribution width (RBC) [Entitic vol] 43.2 fL 35.1-43.9 [facility] Work Phone: [phone] Erythrocyte distribution width (RBC) [Ratio] 14.0 % 11.6-14.6 [facility] Work Phone: [phone] Immature granulocytes/100 WBC (Bld) 0.400 % 0.0-0.9 [facility] Work Phone: [phone] Comment on above: IG% - Immature Granu locytes (promyelocytes, myelocytes and metamyelocytes) > 1% indicates that a LEFT SHIFT is Present. MCH (RBC) [Entitic mass] 27.4 pg 27.0-32.0 [facility] Work Phone: Nucleated RBC/100 WBC (Bld) [Ratio] 0 % 0-5 [facility] Work Phone: [phone] MCHC Auto (RBC) [Mass/Vol]on 01-21-2022 MCHC (RBC) [Mass/Vol] 31.5 g/dL 32-36 [facility] Work Phone: Mucus LM Ql (Urine sed)on Mucus Ql (Urine sed) 0 SEEN /hpf [facility] Work Phone: [phone] Nitrite Test strip Ql (U)on 01-21-2022 Nitrite Ql (U) Positive Negative [facility] Work Phone: No Panel Informationon 01-21 Urine Transitional Epithelial Cells 0-5 SEEN /hpf 0-5 [facility] Work Phone: Estimated Creatinine Clearance Calc 45.50 ml/min [facility] Work Phone: [phone] Estimated GFR (MDRD) Amer 59 mL/min >60 [facility] Work Phone: Comment on above: GFR Calc Estimated GFR (MDRD) Non-Af Amer 48 mL/min >60 [facility] Work Phone: Comment on above: Non- GFR Calc Platelets bldon 01-21-2022 Platelets (Bld) [#/Vol] 161 10*3/uL 150-450 [facility] Work Phone: Protein Test strip Ql (U)on 01-21-2022 Protein Ql (U) Negative Negative [facility] Work Phone: RBC morphologyon 01-21-2022 RBC morphology finding Nom (Bld) NORM C+C NORMAL NORM C&C [facility] Work Phone: Serum or plasma albumin vannessa urement (mass/volume)on 01-21-2022 Albumin [Mass/Vol] 3.8 g/dL 3.2-5.0 [facility] Work Phone: Serum or plasma calcium vannessa urement (mass/volume)on 01-21-2022 Calcium [Mass/Vol] 9.3 mg/dL 8.5-10.1 [facility] Work Phone: Serum or plasma creatinine m easurement (mass/volume)on 01-21-2022 Creatinine [Mass/Vol] 1.20 mg/dL 0.55-1.02 [facility] Work Phone: Comment on above: The validity of the calculated GFR & GFRAA in patients over 70 years has not been determined. Clinical correlation is essential. Serum or plasma urea nitroge n measurement (mass/volume)on 01-21-2022 Urea nitrogen [Mass/Vol] 14 mg/dL 7-18 [facility] Work Phone: Squamous epithelial cells de tection in urine sediment by light microscopyon 01-21-2022 Epithelial cells.squamous LM Ql (Urine sed) 0-5 SEEN /hpf 5-10 [facility] Work Phone: Thin prep Papanicolaou smear with manual screeningon 01-21-2022 Thin prep Papanicolaou smear with manual screening 35 U/L 15-37 [facility] Work Phone: Comment on above: Moderate Hemolysis, Result may be falsely increased. Thin prep Papanicolaou smear with manual screening 6 5-15 [facility] Work Phone: Urine blood detectionon - RBC Ql (U) Negative Negative [facility] Work Phone: [phone] RBC Ql (U) 0 SEEN /hpf 0-5 [facility] Work Phone: [phone] Urine clarityon 01-21-2022 Clarity (U) Sl. Cloudy Clear [facility] Work Phone: Urine color determinationon 01-21-2022 Color (U) Yellow Yellow [facility] Work Phone: Urine glucose detectionon Glucose Ql (U) Normal mg/dl Normal [facility] Work Phone: Urine leukocyte esterase det ection by dipstickon 01-21-2022 Leukocyte esterase Test strip Ql (U) 500 /ul Negative [facility] Work Phone: Urine pHon 01-21-2022 pH (U) 7.0 [pH] 5.0 - 8.0 [facility] Work Phone: Urine sediment bacteria coun t by microscopy (number/high power field)on 01-21-2022 Bacteria LM.HPF (Urine sed) [#/Area] 3 /[HPF] None Seen [facility] Work Phone: Urine specific gravity measu rementon 01-21-2022 Specific gravity (U) [Rel density] 1.010 1.002-1.030 [facility] Work Phone: Urobilinogen Auto test strip Ql (U)on 01-21-2022 Urobilinogen Ql (U) Normal mg/dl Normal [facility] Work Phone: Absolute lymphocyte counton 11-26-2021 Lymphocytes Auto (Unsp spec) [#/Vol] 1.30 10*3/uL 0.83-4.51 [facility] Work Phone: Basophil percentageon 2021 Basophils/100 WBC (Bld) 0.7 % 0-1 [facility] Work Phone: Chloride [Moles/Vol] 109 mmol/L 98-107 [facility] Work [facility]: Eosinophils/100 WBC (Bld) 0.7 % 0-5 [facility] Work Phone: Glucose [Mass/Vol] 109 mg/dL 74-106 [facility] Work Phone: Comment on above: Fasting Glucose resu lt from 100 to 125 mg/dL suggests IMPAIRED HOMEOSTASIS per A.D.A. criteria. Neutrophils (Bld) [#/Vol] 4.2 10*3/uL 2.0-7.7 [facility] Work Phone: Neutrophils/100 WBC (Bld) 69.0 % 47-70 [facility] Work Phone: Potassium [Moles/Vol] 4.1 mmol/L 3.5-5.1 [facility] Work Phone: Sodium [Moles/Vol] 139 mmol/L 136-145 [facility] Work Phone: WBC (Bld) [#/Vol] 6.1 10*3/uL 4.4-11.0 [facility] Work Phone: Blood erythrocytes count (nu mber/volume)on 11-26-2021 RBC (Bld) [#/Vol] 4.48 10*6/uL 4.2-5.4 [facility] Work Phone: Blood hemoglobin measurement (mass/volume)on 11-26-2021 Hemoglobin (Bld) [Mass/Vol] 12.4 g/dL 12.0-15.0 [facility] Work Phone: Blood lymphocytes/100 leukoc yteson 11-26-2021 Lymphocytes/100 WBC (Bld) 21.4 % 19-41 [facility] Work Phone: [phone] Blood monocytes/100 leukocyt eson 11-26-2021 Monocytes/100 WBC (Bld) 7.7 % 0-10 [facility] Work Phone: [phone] Blood platelet mean volumeon 11-26-2021 Platelet mean volume (Bld) [Entitic vol] 10.1 fL 6.2-12.0 [facility] Work Phone: [phone] Determination of erythrocyte mean corpuscular volume (MCV)on 11-26-2021 MCV (RBC) [Entitic vol] 88.2 fL 81-99 [facility] Work Phone: [phone] Hematocrit Auto (Bld) [Volum e fraction]on 11-26-2021 Hematocrit (Bld) [Volume fraction] 39.5 % 37-47 [facility] Work Phone: [phone] Laboratory - Chemistry and C hemistry - challengeon 11-26-2021 CO2 [Moles/Vol] 23.0 mmol/L 21.0-32.0 [facility] Work Phone: [phone] Urea nitrogen/Creatinine [Mass ratio] 11.2 mg/mg 10-20 [facility] Work Phone: [phone] Laboratory - Hematology and Cell countson 11-26-2021 Erythrocyte distribution width (RBC) [Entitic vol] 43.4 fL 35.1-43.9 [facility] Work Phone: [phone] Erythrocyte distribution width (RBC) [Ratio] 13.5 % 11.6-14.6 [facility] Work Phone: [phone] Immature granulocytes/100 WBC (Bld) 0.500 % 0.0-0.9 [facility] Work Phone: [phone] Comment on above: IG% - Immature Granu locytes (promyelocytes, myelocytes and metamyelocytes) > 1% indicates that a LEFT SHIFT is Present. MCH (RBC) [Entitic mass] 27.7 pg 27.0-32.0 [facility] Work Phone: Nucleated RBC/100 WBC (Bld) [Ratio] 0 % 0-5 [facility] Work Phone: [phone] MCHC Auto (RBC) [Mass/Vol]on 11-26-2021 MCHC (RBC) [Mass/Vol] 31.4 g/dL 32-36 [facility] Work Phone: No Panel Informationon 11-26 Troponin I High Sensitivity < 3 pg/mL 3.0-54.0 [facility] Work Phone: Comment on above: Please Note: New [place]yne t Units and Gender Specific Reference Ranges. For more information see Policy Stat Procedure [place] High Sensitivity Troponin (TNIH) and attachments. Estimated Creatinine Clearance Calc 38.68 ml/min [facility] Work Phone: Estimated GFR (MDRD) Amer 48 mL/min >60 [facility] Work Phone: [phone] Comment on above: GFR Calc Estimated GFR (MDRD) Non-Af Amer 40 mL/min >60 [facility] Work Phone: Comment on above: Non- GFR Calc Platelets bldon 11-26-2021 Platelets (Bld) [#/Vol] 205 10*3/uL 150-450 [facility] Work Phone: Serum or plasma calcium vannessa urement (mass/volume)on 11-26-2021 Calcium [Mass/Vol] 9.2 mg/dL 8.5-10.1 [facility] Work Phone: [phone] Serum or plasma creatinine m easurement (mass/volume)on 11-26-2021 Creatinine [Mass/Vol] 1.43 mg/dL 0.55-1.02 [facility] Work Phone: Comment on above: The validity of the calculated GFR & GFRAA in patients over 70 years has not been determined. Clinical correlation is essential. Serum or plasma urea nitroge n measurement (mass/volume)on 11-26-2021 Urea nitrogen [Mass/Vol] 16 mg/dL 7-18 [facility] Work Phone: Thin prep Papanicolaou smear with manual screeningon 11-26-2021 Thin prep Papanicolaou smear with manual screening 7 5-15 [facility] Work Phone: Absolute lymphocyte counton 11-22-2021 Lymphocytes Auto (Unsp spec) [#/Vol] 0.94 10*3/uL 0.83-4.51 [facility] Work Phone: Basophil percentageon 2021 Basophil percentage >100 SEEN /hpf 0-5 [facility] Work Phone: Basophils/100 WBC (Bld) 0.4 % 0-1 [facility] Work Phone: Chloride [Moles/Vol] 110 mmol/L 98-107 [facility] Work Phone: Eosinophils/100 WBC (Bld) 1.0 % 0-5 [facility] Work Phone: Glucose [Mass/Vol] 105 mg/dL 74-106 [facility] Work Phone: Comment on above: Fasting Glucose resu lt from 100 to 125 mg/dL suggests IMPAIRED HOMEOSTASIS per A.D.A. criteria. Neutrophils (Bld) [#/Vol] 6.3 10*3/uL 2.0-7.7 [facility] Work Phone: Neutrophils/100 WBC (Bld) 78.8 % 47-70 [facility] Work Phone: Potassium [Moles/Vol] 4.8 mmol/L 3.5-5.1 [facility] Work Phone: Comment on above: Moderate Hemolysis, Result may be falsely increased. Sodium [Moles/Vol] 138 mmol/L 136-145 [facility] Work Phone: WBC (Bld) [#/Vol] 8.0 10*3/uL 4.4-11.0 [facility] Work Phone: Bilirubin Test strip Ql (U)o n 08-27-2022 Bilirubin Ql (U) Negative Negative [facility] Work Phone: Blood erythrocytes count (nu mber/volume)on 11-22-2021 RBC (Bld) [#/Vol] 4.64 10*6/uL 4.2-5.4 [facility] Work Phone: Blood hemoglobin measurement (mass/volume)on 11-22-2021 Hemoglobin (Bld) [Mass/Vol] 12.9 g/dL 12.0-15.0 [facility] Work Phone: Blood lymphocytes/100 leukoc yteson 11-22-2021 Lymphocytes/100 WBC (Bld) 11.8 % 19-41 [facility] Work Phone: Blood monocytes/100 leukocyt eson 11-22-2021 Monocytes/100 WBC (Bld) 7.7 % 0-10 [facility] Work Phone: Blood platelet mean volumeon 11-22-2021 Platelet mean volume (Bld) [Entitic vol] 10.5 fL 6.2-12.0 [facility] Work Phone: Determination of erythrocyte mean corpuscular volume (MCV)on 11-22-2021 MCV (RBC) [Entitic vol] 87.7 fL 81-99 [facility] Work Phone: [phone] Hematocrit Auto (Bld) [Volum e fraction]on 11-22-2021 Hematocrit (Bld) [Volume fraction] 40.7 % 37-47 [facility] Work Phone: Ketones Test strip Ql (U)on 11-22-2021 Ketones Ql (U) Negative Negative [facility] Work Phone: [phone] Laboratory - Chemistry and C hemistry - challengeon 11-22-2021 CO2 [Moles/Vol] 22.0 mmol/L 21.0-32.0 [facility] Work Phone: Urea nitrogen/Creatinine [Mass ratio] 14.4 mg/mg 10-20 [facility] Work Phone: [phone] Laboratory - Hematology and Cell countson 11-22-2021 Erythrocyte distribution width (RBC) [Entitic vol] 43.8 fL 35.1-43.9 [facility] Work Phone: [phone] Erythrocyte distribution width (RBC) [Ratio] 13.6 % 11.6-14.6 [facility] Work Phone: [phone] Immature granulocytes/100 WBC (Bld) 0.300 % 0.0-0.9 [facility] Work Phone: [phone] Comment on above: IG% - Immature Granu locytes (promyelocytes, myelocytes and metamyelocytes) > 1% indicates that a LEFT SHIFT is Present. MCH (RBC) [Entitic mass] 27.8 pg 27.0-32.0 [facility] Work Phone: [phone] Nucleated RBC/100 WBC (Bld) [Ratio] 0 % 0-5 [facility] Work Phone: [phone] MCHC Auto (RBC) [Mass/Vol]on 11-22-2021 MCHC (RBC) [Mass/Vol] 31.7 g/dL 32-36 [facility] Work Phone: [phone] Mucus LM Ql (Urine sed)on Mucus Ql (Urine sed) 0 SEEN /hpf [facility] Work Phone: [phone] Nitrite Test strip Ql (U)on 11-22-2021 Nitrite Ql (U) Positive Negative [facility] Work Phone: [phone] Panel Informationon 11-22 Estimated Creatinine Clearance Calc 39.79 ml/min [facility] Work Phone: [phone] Estimated GFR (MDRD) Amer 49 mL/min >60 [facility] Work Phone: [phone] Comment on above: GFR Calc Estimated GFR (MDRD) Non-Af Amer 41 mL/min >60 [facility] Work Phone: [phone] Comment on above: Non- GFR Calc Platelets bldon 11-22-2021 Platelets (Bld) [#/Vol] 188 10*3/uL 150-450 [facility] Work Phone: [phone] Protein Test strip Ql (U)on 11-22-2021 Protein Ql (U) 100 mg/dl Negative [facility] Work Phone: [phone] Serum or plasma calcium vannessa urement (mass/volume)on 11-22-2021 Calcium [Mass/Vol] 8.7 mg/dL 8.5-10.1 [facility] Work Phone: [phone] Serum or plasma creatinine m easurement (mass/volume)on 11-22-2021 Creatinine [Mass/Vol] 1.39 mg/dL 0.55-1.02 [facility] [place] [place] Work Phone: Comment on above: The validity of the calculated GFR & GFRAA in patients over 70 years has not been determined. Clinical correlation is essential. Serum or plasma urea nitroge n measurement (mass/volume)on 11-22-2021 Urea nitrogen [Mass/Vol] 20 mg/dL 7-18 [facility] Work Phone: [phone] Squamous epithelial cells de tection in urine sediment by light microscopyon 11-22-2021 Epithelial cells.squamous LM Ql (Urine sed) 10-25 SEEN /hpf 5-10 [facility] Work Phone: Thin prep Papanicolaou smear with manual screeningon 11-22-2021 Thin prep Papanicolaou smear with manual screening 6 5-15 [facility] Work Phone: Urine blood detectionon 10-28 RBC Ql (U) 250 /ul Negative [facility] Work Phone: [phone] RBC Ql (U) > 100 SEEN /hpf 0-5 [facility] Work Phone: [phone] Urine clarityon 11-22-2021 Clarity (U) Cloudy Clear [facility] Work Phone: [phone] Urine color determinationon 11-22-2021 Color (U) Red Yellow [facility] Work Phone: [phone] Urine glucose detectionon Glucose Ql (U) Normal mg/dl Normal [facility] Work Phone: [phone] Urine leukocyte esterase det ection by dipstickon 11-22-2021 Leukocyte esterase Test strip Ql (U) 500 /ul Negative [facility] Work Phone: Urine pHon 11-22-2021 pH (U) 8.0 [pH] 5.0 - 8.0 [facility] Work Phone: Urine sediment bacteria coun t by microscopy (number/high power field)on 11-22-2021 Bacteria LM.HPF (Urine sed) [#/Area] 4 /[HPF] None Seen [facility] Work Phone: Urine specific gravity measu rementon 11-22-2021 Specific gravity (U) [Rel density] 1.015 1.002-1.030 [facility] Work Phone: Urobilinogen Auto test strip Ql (U)on 11-22-2021 Urobilinogen Ql (U) Normal mg/dl Normal [facility] Work Phone: UA DIP, URINE (POC)on 2021 BILIRUBIN UA (POCT) Negative Negative [facility] CLARITY UA (POCT) Clear [facility] COLOR UA (POCT) Yellow [facility] GLUCOSE UA (POCT) Negative Negative mg/dL [facility] HEMOGLOBIN/BLOOD UA (POCT) Trace-intact Abnormal Negative [facility] KETONE UA (POCT) Negative Negative mg/dL [facility] LEUKOCYTES UA (POCT) Small Abnormal Negative [facility] NITRITE UA (POCT) Negative Negative [facility] PH UA (POCT) 7.0 4.5 - 8.0 [facility] Protein Ql (U) Negative Negative mg/dL [facility] SPECIFIC GRAVITY UA (POCT) 1.015 1.005 - 1.030 [facility] UROBILINOGEN UA (POCT) 0.2 E.U./dL Jhoana l E.U./dL [facility] UA DIP, URINE (POC)on 2021 BILIRUBIN UA (POCT) Negative Negative [facility] CLARITY UA (POCT) Clear [facility] COLOR UA (POCT) Yellow [facility] GLUCOSE UA (POCT) Negative Negative mg/dL [facility] HEMOGLOBIN/BLOOD UA (POCT) Small Abnormal Negative [facility] KETONE UA (POCT) Negative Negative mg/dL [facility] LEUKOCYTES UA (POCT) Moderate Abnormal Negative [facility] NITRITE UA (POCT) Negative Negative [facility] PH UA (POCT) 6.5 4.5 - 8.0 [facility] Protein Ql (U) Negative Negative mg/dL [facility] SPECIFIC GRAVITY UA (POCT) 1.020 1.005 - 1.030 [facility] UROBILINOGEN UA (POCT) 0.2 E.U./dL Jhoana l E.U./dL [facility] UA DIP, URINE (POC)on 2021 BILIRUBIN UA (POCT) Negative Negative [facility] CLARITY UA (POCT) Slightly Cloudy [facility] COLOR UA (POCT) Yellow [facility] GLUCOSE UA (POCT) Negative Negative mg/dL [facility] HEMOGLOBIN/BLOOD UA (POCT) Small Abnormal Negative [facility] KETONE UA (POCT) Negative Negative mg/dL [facility] LEUKOCYTES UA (POCT) Small Abnormal Negative [facility] NITRITE UA (POCT) Negative Negative [facility] PH UA (POCT) 7.0 4.5 - 8.0 [facility] Protein Ql (U) Negative Negative mg/dL [facility] SPECIFIC GRAVITY UA (POCT) 1.010 1.005 - 1.030 [facility] UROBILINOGEN UA (POCT) 0.2 E.U./dL Jhoana l E.U./dL [facility] UA DIP, URINE (POC)on 2021 BILIRUBIN UA (POCT) Negative Negative [facility] CLARITY UA (POCT) Cloudy [facility] COLOR UA (POCT) Yellow [facility] GLUCOSE UA (POCT) Negative Negative mg/dL [facility] HEMOGLOBIN/BLOOD UA (POCT) Moderate Abnormal Negative [facility] KETONE UA (POCT) Negative Negative mg/dL [facility] LEUKOCYTES UA (POCT) Large Abnormal Negative [facility] NITRITE UA (POCT) Negative Negative [facility] PH UA (POCT) 6.0 4.5 - 8.0 [facility] Protein Ql (U) Negative Negative mg/dL [facility] SPECIFIC GRAVITY UA (POCT) 1.015 1.005 - 1.030 [facility] UROBILINOGEN UA (POCT) 0.2 E.U./dL Jhoana l E.U./dL [facility] UA DIP, URINE (POC)on 2021 BILIRUBIN UA (POCT) Negative Negative [facility] CLARITY UA (POCT) Cloudy [facility] COLOR UA (POCT) Yellow [facility] GLUCOSE UA (POCT) Negative Negative mg/dL [facility] HEMOGLOBIN/BLOOD UA (POCT) Moderate Abnormal Negative [facility] KETONE UA (POCT) Negative Negative mg/dL [facility] LEUKOCYTES UA (POCT) Moderate Abnormal Negative [facility] NITRITE UA (POCT) Negative Negative [facility] PH UA (POCT) 6.5 4.5 - 8.0 [facility] Protein Ql (U) 30 mg/dL Abnormal Negative mg/dL [facility] SPECIFIC GRAVITY UA (POCT) 1.015 1.005 - 1.030 [facility] UROBILINOGEN UA (POCT) 0.2 E.U./dL Jhoana l E.U./dL [facility] Culture, urine Bacteria identified Cx Nom (U) Proteus mirabilis [facility] Work Phone: Bacteria identified Cx Nom (U) Klebsiella pneumoniae sp pneum [facility] Work Phone: Influenza virus A and B and SARS-CoV-2 (COVID-19) Ag panel - Upper respiratory specim SARS-CoV-2 & FLU Antigen (Rapid) SARS-CoV-2 (COVID 19) [facility] Work Phone: RSV Ag EIA RSV Ag Immune stain Ql (Tiss) [facility] Work Phone: Vital Signs Date Time Vital Sign Value Performing Clinician Facility 11-15-2024 13:53-0400 Diastolic blood pressure 77 mm[Hg] Chaparrita Newman HOME ENERGY CONSULTANT.BANQUET DIRECTOR Work Phone: [facility] 11-15-2024 13:53-0400 Heart rate 68 /min Chaparrita Newman HOME ENERGY CONSULTANT.BANQUET DIRECTOR Work Phone: [facility] 11-15-2024 13:53-0400 Respiratory rate 16 /min Chaparrita Newman HOME ENERGY CONSULTANT.BANQUET DIRECTOR Work Phone: [facility] 11-15-2024 13:53-0400 SaO2% (BldA) [Mass fraction] 99 % Chaparrita Newman HOME ENERGY CONSULTANT.BANQUET DIRECTOR Work Phone: [facility] 11-15-2024 13:53-0400 Systolic blood pressure 122 mm[Hg] Chaparrita Newman HOME ENERGY CONSULTANT.BANQUET DIRECTOR Work Phone: [facility] 07-24-2024 18:10-0400 Body mass index (BMI) [Ratio] 29.01 kg/m2 Ita Clutter PA-C Work Phone: [facility] 07-24-2024 18:10-0400 Body temperature 100.2 [degF] Ita Clutter PA-C Work Phone: [facility] 07-24-2024 18:10-0400 Body weight 80.7 kg Ita Clutter PA-C Work Phone: [facility] 07-24-2024 18:10-0400 Diastolic blood pressure 84 mm[Hg] Ita Clutter PA-C Work Phone: [facility] 07-24-2024 18:10-0400 Heart rate 84 /min Ita Clutter PA-C Work Phone: [facility] 07-24-2024 18:10-0400 Respiratory rate 18 /min Ita Clutter PA-C Work Phone: [facility] 07-24-2024 18:10-0400 SaO2% (BldA) [Mass fraction] 97 % Ita Clutter PA-C Work Phone: [facility] 07-24-2024 18:10-0400 Systolic blood pressure 128 mm[Hg] Ita Clutter PA-C Work Phone: [facility] 07-11-2024 15:37-0400 Diastolic blood pressure 84 mm[Hg] Lilian Srivastava HOME ENERGY CONSULTANT.BANQUET DIRECTOR Work Phone: [facility] 07-11-2024 15:37-0400 Systolic blood pressure 124 mm[Hg] Lilian Srivastava HOME ENERGY CONSULTANT.BANQUET DIRECTOR Work Phone: [facility] 07-11-2024 15:03-0400 Body mass index (BMI) [Ratio] 29.02 kg/m2 Lilian Suppan HOME ENERGY CONSULTANT.BANQUET DIRECTOR Work Phone: [facility] 07-11-2024 15:03-0400 Body temperature 98.91 [degF] Lilian Suppan HOME ENERGY CONSULTANT.BANQUET DIRECTOR Work Phone: [facility] 07-11-2024 15:03-0400 Body weight 80.74 kg Lilian Suppan HOME ENERGY CONSULTANT.BANQUET DIRECTOR Work Phone: [facility] 07-11-2024 15:03-0400 Heart rate 84 /min Lilian Suppan HOME ENERGY CONSULTANT.BANQUET DIRECTOR Work Phone: [facility] 07-11-2024 15:03-0400 SaO2% (BldA) [Mass fraction] 96 % Lilian Suppan HOME ENERGY CONSULTANT.BANQUET DIRECTOR Work Phone: [facility] 06-01-2024 16:48-0500 Body mass index (BMI) [Ratio] 29.47 kg/m2 Keven Lawrence HOME ENERGY CONSULTANT.BANQUET DIRECTOR Work Phone: [facility] 06-01-2024 16:48-0500 Body temperature 98.8 [degF] Keven Lawrence HOME ENERGY CONSULTANT.BANQUET DIRECTOR Work Phone: [facility] 06-01-2024 16:48-0500 Body weight 82 kg Keven Lawrence HOME ENERGY CONSULTANT.BANQUET DIRECTOR Work Phone: [facility] 06-01-2024 16:48-0500 Diastolic blood pressure 93 mm[Hg] Keven Lawrence HOME ENERGY CONSULTANT.BANQUET DIRECTOR Work Phone: [facility] 06-01-2024 16:48-0500 Heart rate 87 /min Keevn Lawrence HOME ENERGY CONSULTANT.BANQUET DIRECTOR Work Phone: [facility] 06-01-2024 16:48-0500 Respiratory rate 20 /min Keven Lawrence HOME ENERGY CONSULTANT.BANQUET DIRECTOR Work Phone: [facility] 06-01-2024 16:48-0500 SaO2% (BldA) [Mass fraction] 96 % Keven Lawrence HOME ENERGY CONSULTANT.BANQUET DIRECTOR Work Phone: [facility] 06-01-2024 16:48-0500 Systolic blood pressure 154 mm[Hg] Kveen Melinda HOME ENERGY CONSULTANT.BANQUET DIRECTOR Work Phone: [facility] 06-21-2023 14:57-0400 Body weight 73.48 kg Lilian Suppan HOME ENERGY CONSULTANT.LINEN SUPERVISOR Work Phone: [facility] 06-21-2023 14:57-0400 Diastolic blood pressure 76 mm[Hg] Lilian Suppan HOME ENERGY CONSULTANT.LINEN SUPERVISOR Work Phone: [facility] 06-21-2023 14:57-0400 Heart rate 88 /min Lilian Suppan HOME ENERGY CONSULTANT.LINEN SUPERVISOR Work Phone: [facility] 06-21-2023 14:57-0400 Respiratory rate 18 /min Lilian Suppan HOME ENERGY CONSULTANT.LINEN SUPERVISOR Work Phone: [facility] 06-21-2023 14:57-0400 SaO2% (BldA) [Mass fraction] 98 % Lilian Suppan HOME ENERGY CONSULTANT.LINEN SUPERVISOR Work Phone: [facility] 06-21-2023 14:57-0400 Systolic blood pressure 124 mm[Hg] Lilian Suppan HOME ENERGY CONSULTANT.LINEN SUPERVISOR Work Phone: [facility] 05-10-2023 16:19-0500 Body weight 70.76 kg Lilian Suppan HOME ENERGY CONSULTANT.LINEN SUPERVISOR Work Phone: [facility] 05-10-2023 16:19-0500 Diastolic blood pressure 60 mm[Hg] Lilian Suppan HOME ENERGY CONSULTANT.LINEN SUPERVISOR Work Phone: [facility] 05-10-2023 16:19-0500 Heart rate 89 /min Lilian Suppan HOME ENERGY CONSULTANT.LINEN SUPERVISOR Work Phone: [facility] 05-10-2023 16:19-0500 Respiratory rate 18 /min Lilian Suppan HOME ENERGY CONSULTANT.LINEN SUPERVISOR Work Phone: [facility] 05-10-2023 16:19-0500 SaO2% (BldA) [Mass fraction] 99 % Lilian Srivastava APRN.LINEN SUPERVISOR Work Phone: [facility] 05-10-2023 16:19-0500 Systolic blood pressure 116 mm[Hg] Lilian Srivastava APRN.LINEN SUPERVISOR Work Phone: [facility] 02-24-2023 17:06-0500 Body height 167.64 cm [facility] 02-24-2023 17:06-0500 Body mass index (BMI) [Ratio] 27 kg/m2 [facility] 02-24-2023 17:06-0500 Body temperature 96.7 [degF] [facility] 02-24-2023 17:06-0500 Body weight 75.88 kg [facility] 02-24-2023 17:06-0500 Diastolic blood pressure 90 mm[Hg] [facility] 02-24-2023 17:06-0500 Heart rate 96 /min [facility] 02-24-2023 17:06-0500 Respiratory rate 15 /min [facility] 02-24-2023 17:06-0500 SaO2% (BldA) [Mass fraction] 99 % [facility] 02-24-2023 17:06-0500 Systolic blood pressure 143 mm[Hg] [facility] 02-11-2023 16:54-0500 Body temperature 98.91 [degF] NA Gonzalez PA-C Work Phone: [facility] 02-11-2023 16:54-0500 Body weight 73.03 kg NA Gonzalez PA-C Work Phone: [facility] 02-11-2023 16:54-0500 Diastolic blood pressure 80 mm[Hg] NA Gonzalez PA-C Work Phone: [facility] 02-11-2023 16:54-0500 Heart rate 98 /min NA Gonzalez PA-C Work Phone: [facility] 02-11-2023 16:54-0500 Respiratory rate 18 /min NA Gonzalez PA-C Work Phone: [facility] 02-11-2023 16:54-0500 SaO2% (BldA) [Mass fraction] 99 % NA Gonzalez PA-C Work Phone: [facility] 02-11-2023 16:54-0500 Systolic blood pressure 126 mm[Hg] NA Gonzalez PA-C Work Phone: [facility] 07-30-2022 16:49-0400 Body weight 72.12 kg NA Gonzalez PA-C Work Phone: [facility] 07-30-2022 16:49-0400 Diastolic blood pressure 76 mm[Hg] NA Gonzalez PA-C Work Phone: [facility] 07-30-2022 16:49-0400 Heart rate 82 /min NA Gonzalez PA-C Work Phone: [facility] 07-30-2022 16:49-0400 Respiratory rate 16 /min NA Gonzalez PA-C Work Phone: [facility] 07-30-2022 16:49-0400 SaO2% (BldA) [Mass fraction] 96 % NA Gonzalez PA-C Work Phone: [facility] 07-30-2022 16:49-0400 Systolic blood pressure 124 mm[Hg] NA Gonzalez PA-C Work Phone: [facility] 07-13-2022 16:28-0400 Body temperature 98.1 [degF] Krislyn Aberegg PA Work Phone: [facility] 07-13-2022 16:28-0400 Body weight 73.48 kg Krislyn Aberegg PA Work Phone: [facility] 07-13-2022 16:28-0400 Diastolic blood pressure 72 mm[Hg] Krislyn Aberegg PA Work Phone: [facility] 07-13-2022 16:28-0400 Heart rate 86 /min Krislyn Aberegg PA Work Phone: [facility] 07-13-2022 16:28-0400 Respiratory rate 16 /min Krislyn Aberegg PA Work Phone: [facility] 07-13-2022 16:28-0400 SaO2% (BldA) [Mass fraction] 99 % Krislyn Aberegg PA Work Phone: [facility] 07-13-2022 16:28-0400 Systolic blood pressure 122 mm[Hg] Krislyn Aberegg PA Work Phone: [facility] 03-27-2022 16:58-0500 Body temperature 98.49 [degF] Gena Denbow PA-C Work Phone: [facility] 03-27-2022 16:58-0500 Body weight 72.3 kg Gena Denbow PA-C Work Phone: [facility] 03-27-2022 16:58-0500 Diastolic blood pressure 86 mm[Hg] Gena Denbow PA-C Work Phone: [facility] 03-27-2022 16:58-0500 Heart rate 106 /min Gena Denbow PA-C Work Phone: [facility] 03-27-2022 16:58-0500 Respiratory rate 18 /min Gena Denbow PA-C Work Phone: [facility] 03-27-2022 16:58-0500 SaO2% (BldA) [Mass fraction] 97 % Gena Denbow PA-C Work Phone: [facility] 03-27-2022 16:58-0500 Systolic blood pressure 130 mm[Hg] Gena Denbow PA-C Work Phone: [facility] 02-24-2022 11:48-0500 Body temperature 98 [degF] [facility] Work Phone: 02-24-2022 11:48-0500 Diastolic blood pressure 67 mm[Hg] [facility] Work Phone: 02-24-2022 11:48-0500 Heart rate 103 /min [facility] Work Phone: 02-24-2022 11:48-0500 Respiratory rate 22 /min [facility] Work Phone: 02-24-2022 11:48-0500 SaO2% (BldA) [Mass fraction] 99 % [facility] Work Phone: 02-24-2022 11:48-0500 Systolic blood pressure 123 mm[Hg] [facility] Work Phone: 02-24-2022 10:34-0500 Body height 167.64 cm [facility] Work Phone: 02-24-2022 10:34-0500 Body mass index (BMI) [Ratio] 25 kg/m2 [facility] Work Phone: 02-24-2022 10:34-0500 Body weight 70.3 kg [facility] Work Phone: 02-02-2022 18:16-0500 Body temperature 98.2 [degF] Peter Quesada MD Work Phone: [facility] 02-02-2022 18:16-0500 Body weight 72.94 kg Peter Quesada MD Work Phone: [facility] 02-02-2022 18:16-0500 Diastolic blood pressure 78 mm[Hg] Peter Quesada MD Work Phone: [facility] 02-02-2022 18:16-0500 Heart rate 90 /min Peter Quesada MD Work Phone: [facility] 02-02-2022 18:16-0500 Respiratory rate 17 /min Peter Quesada MD Work Phone: [facility] 02-02-2022 18:16-0500 SaO2% (BldA) [Mass fraction] 98 % Peter Quesada MD Work Phone: [facility] 02-02-2022 18:16-0500 Systolic blood pressure 118 mm[Hg] Peter Quesada MD Work Phone: [facility] 01-21-2022 19:21-0400 Diastolic blood pressure 78 mm[Hg] [facility] Work Phone: 01-21-2022 19:21-0400 Heart rate 78 /min [facility] Work Phone: 01-21-2022 19:21-0400 Respiratory rate 18 /min [facility] Work Phone: 01-21-2022 19:21-0400 SaO2% (BldA) [Mass fraction] 99 % [facility] Work Phone: 01-21-2022 19:21-0400 Systolic blood pressure 134 mm[Hg] [facility] Work Phone: 01-21-2022 15:21-0400 Body height 167.64 cm [facility] Work Phone: 01-21-2022 15:21-0400 Body mass index (BMI) [Ratio] 25.9 kg/m2 [facility] Work Phone: 01-21-2022 15:21-0400 Body temperature 97.3 [degF] [facility] Work Phone: 01-21-2022 15:21-0400 Body weight 72.93 kg [facility] Work Phone: 12-11-2021 16:56-0400 Body weight 72.12 kg NA Gonzalez PA-C Work Phone: [facility] 12-11-2021 16:56-0400 Diastolic blood pressure 72 mm[Hg] NA Gonzalez PA-C Work Phone: [facility] 12-11-2021 16:56-0400 Heart rate 86 /min NA Gonzalez PA-C Work Phone: [facility] 12-11-2021 16:56-0400 Respiratory rate 18 /min NA Gonzalez PA-C Work Phone: [facility] 12-11-2021 16:56-0400 SaO2% (BldA) [Mass fraction] 99 % NA Gonzalez PA-C Work Phone: [facility] 12-11-2021 16:56-0400 Systolic blood pressure 120 mm[Hg] NA Carlos FRANCISCO-Lars Work Phone: [facility] 11-26-2021 23:00-0400 Diastolic blood pressure 71 mm[Hg] [facility] Work Phone: 11-26-2021 23:00-0400 Heart rate 69 /min [facility] Work Phone: 11-26-2021 23:00-0400 Respiratory rate 18 /min [facility] Work Phone: 11-26-2021 23:00-0400 SaO2% (BldA) [Mass fraction] 96 % [facility] Work Phone: 11-26-2021 23:00-0400 Systolic blood pressure 129 mm[Hg] [facility] Work Phone: 11-26-2021 18:03-0400 Body height 167.64 cm [facility] Work Phone: 11-26-2021 18:03-0400 Body mass index (BMI) [Ratio] 25.8 kg/m2 [facility] Work Phone: 11-26-2021 18:03-0400 Body temperature 98.3 [degF] [facility] Work Phone: 11-26-2021 18:03-0400 Body weight 72.57 kg [facility] Work Phone: 11-22-2021 18:30-0400 Diastolic blood pressure 69 mm[Hg] [facility] Work Phone: 11-22-2021 18:30-0400 Heart rate 72 /min [facility] Work Phone: 11-22-2021 18:30-0400 Respiratory rate 15 /min [facility] Work Phone: 11-22-2021 18:30-0400 SaO2% (BldA) [Mass fraction] 98 % [facility] Work Phone: 11-22-2021 18:30-0400 Systolic blood pressure 124 mm[Hg] [facility] Work Phone: 11-22-2021 15:11-0400 Body temperature 97.8 [degF] [facility] Work Phone: 11-22-2021 15:09-0400 Body height 167.64 cm [facility] Work Phone: 11-22-2021 15:09-0400 Body mass index (BMI) [Ratio] 25.8 kg/m2 [facility] Work Phone: 11-22-2021 15:09-0400 Body weight 72.57 kg [facility] Work Phone: 10-20-2021 17:20-0400 Body temperature 98.49 [degF] Keven Melinda HOME ENERGY CONSULTANT.BANQUET DIRECTOR Work Phone: [facility] 10-20-2021 17:20-0400 Body weight 73.3 kg Keven Pendleterrell HOME ENERGY CONSULTANT.BANQUET DIRECTOR Work Phone: [facility] 10-20-2021 17:20-0400 Diastolic blood pressure 94 mm[Hg] Keven Pendlebury HOME ENERGY CONSULTANT.BANQUET DIRECTOR Work Phone: [facility] 10-20-2021 17:20-0400 Heart rate 91 /min Keven Pendlebury HOME ENERGY CONSULTANT.BANQUET DIRECTOR Work Phone: [facility] 10-20-2021 17:20-0400 Respiratory rate 21 /min Keven Pendleterrell HOME ENERGY CONSULTANT.BANQUET DIRECTOR Work Phone: [facility] 10-20-2021 17:20-0400 SaO2% (BldA) [Mass fraction] 98 % Keven Greenleterrell HOME ENERGY CONSULTANT.BANQUET DIRECTOR Work Phone: [facility] 10-20-2021 17:20-0400 Systolic blood pressure 144 mm[Hg] Keven Pendlebury HOME ENERGY CONSULTANT.BANQUET DIRECTOR Work Phone: [facility] 09-13-2021 15:24-0400 Body temperature 98.29 [degF] Sabine Praisler-Wood HOME ENERGY CONSULTANT.BANQUET DIRECTOR Work Phone: [facility] 09-13-2021 15:24-0400 Body weight 73.94 kg Sabine Praisler-Wood HOME ENERGY CONSULTANT.BANQUET DIRECTOR Work Phone: [facility] 09-13-2021 15:24-0400 Diastolic blood pressure 82 mm[Hg] Sabine Praisler-Wood HOME ENERGY CONSULTANT.BANQUET DIRECTOR Work Phone: [facility] 09-13-2021 15:24-0400 Heart rate 88 /min Sabine Praisler-Wood HOME ENERGY CONSULTANT.BANQUET DIRECTOR Work Phone: [facility] 09-13-2021 15:24-0400 Respiratory rate 16 /min Sabine Praisler-Wood HOME ENERGY CONSULTANT.BANQUET DIRECTOR Work Phone: [facility] 09-13-2021 15:24-0400 SaO2% (BldA) [Mass fraction] 99 % Sabine Praisler-Wood HOME ENERGY CONSULTANT.BANQUET DIRECTOR Work Phone: [facility] 09-13-2021 15:24-0400 Systolic blood pressure 136 mm[Hg] Sabine Praisler-Wood HOME ENERGY CONSULTANT.BANQUET DIRECTOR Work Phone: [facility] 07-28-2021 17:39-0400 Body temperature 98.2 [degF] Nathalie Bogner PA-C Work Phone: [facility] 07-28-2021 17:39-0400 Body weight 73.85 kg Nathalie Bogner PA-C Work Phone: [facility] 07-28-2021 17:39-0400 Diastolic blood pressure 80 mm[Hg] Nathalie Bogner PA-C Work Phone: [facility] 07-28-2021 17:39-0400 Heart rate 96 /min Nathalie Bogner PA-C Work Phone: [facility] 07-28-2021 17:39-0400 Respiratory rate 18 /min Nathalie Bogner PA-C Work Phone: [facility] 07-28-2021 17:39-0400 SaO2% (BldA) [Mass fraction] 99 % Nathalie Bogner PA-C Work Phone: [facility] 07-28-2021 17:39-0400 Systolic blood pressure 122 mm[Hg] Nathalie Bogner PA-C Work Phone: [facility] 07-14-2021 17:44-0400 Body temperature 98.29 [degF] Nelly Athy PA-C Work Phone: [facility] 07-14-2021 17:44-0400 Body weight 72.58 kg Nelly Athy PA-C Work Phone: [facility] 07-14-2021 17:44-0400 Diastolic blood pressure 72 mm[Hg] Nelly Athy PA-C Work Phone: [facility] 07-14-2021 17:44-0400 Heart rate 94 /min Nelly Athy PA-C Work Phone: [facility] 07-14-2021 17:44-0400 Respiratory rate 18 /min Nelly Athy PA-C Work Phone: [facility] 07-14-2021 17:44-0400 SaO2% (BldA) [Mass fraction] 97 % Nelly Athy PA-C Work Phone: [facility] 07-14-2021 17:44-0400 Systolic blood pressure 124 mm[Hg] Nelly Athy PA-C Work Phone: [facility] 06-25-2021 17:23-0400 Body temperature 98.1 [degF] Marcelo Allen APRN.BANQUET DIRECTOR Work Phone: [facility] 06-25-2021 17:23-0400 Body weight 73.03 kg Marcelo Allen APRN.BANQUET DIRECTOR Work Phone: [facility] 06-25-2021 17:23-0400 Diastolic blood pressure 82 mm[Hg] Marcelo Allen HOME ENERGY CONSULTANT.BANQUET DIRECTOR Work Phone: [facility] 06-25-2021 17:23-0400 Heart rate 87 /min Marcelo Allen HOME ENERGY CONSULTANT.BANQUET DIRECTOR Work Phone: [facility] 06-25-2021 17:23-0400 Respiratory rate 18 /min Marcelo Allen HOME ENERGY CONSULTANT.BANQUET DIRECTOR Work Phone: [facility] 06-25-2021 17:23-0400 SaO2% (BldA) [Mass fraction] 98 % Marcelo Allen HOME ENERGY CONSULTANT.BANQUET DIRECTOR Work Phone: [facility] 06-25-2021 17:23-0400 Systolic blood pressure 130 mm[Hg] Marcelo Allen HOME ENERGY CONSULTANT.BANQUET DIRECTOR Work Phone: [facility] Encounters Encounter Date Encounter Type Care Provider Facility Start: 01-11-2025 End: 01-11-2025 ambulatory LILIAN SRIVASTAVA Facility:[facility] Start: 11-15-2024 End: 11-15-2024 Office outpatient visit 25 minutes Chaparrita Newman HOME ENERGY CONSULTANT.BANQUET DIRECTOR Work Phone: [facility] Comment on above: Pain in both lower e xtremities (Primary Dx) Start: 11-15-2024 End: 11-15-2024 [facility] Start: 08-25-2024 End: 08-25-2024 ambulatory Carol FRANCISCO Work Phone: [facility] Work Phone: Start: 08-25-2024 End: 08-25-[address] Jean Long MD -Cat Scan [facility] Work Phone: Start: 08-25-2024 End: 08-25-2024 ambulatory Jean Long Facility:[facility] Start: 08-09-2024 End: 08-10-2024 Telephone encounter Lilian Srivastava HOME ENERGY CONSULTANT.BANQUET DIRECTOR Work Phone: [facility] [place] Comment on above: Patient problem (cleaning ic attack during CT scan) Start: 08-09-2024 ambulatory JEAN LONG Facility :[facility] Start: 08-09-2024 End: 08-09-2024 Subsequent hospital visit by physician [facility] ([facility]) Work Phone: Cat Scan Start: 08-04-2024 End: 10-19-2024 Refill Lilian A Suppan HOME ENERGY CONSULTANT.BANQUET DIRECTOR Work Phone: [facility] [place] Comment on above: Refill Request Start: 07-26-2024 End: 07-26-2024 Follow-up encounter Marichuy Tamayo HOME ENERGY CONSULTANT.BANQUET DIRECTOR Work Phone: [facility] Comment on above: Results Start: 07-25-2024 End: 07-26-2024 Telephone encounter Jean Long MD Work Phone: [facility] [place] Comment on above: Results Start: 07-24-2024 End: 07-24-2024 Office outpatient visit 25 minutes Ita Yarbrough PA-C Work Phone: [place] [facility] Comment on above: Pain with urination (Primary Dx); Acute UTI Start: 07-24-2024 End: 07-24-2024 ambulatory LILIAN SUPPAN Facility:[facility] Start: 07-24-2024 ambulatory LILIAN SUPPAN Facil ity:[facility] Start: 07-24-2024 End: 07-24-2024 Subsequent hospital visit by physician [facility] Work Phone: Radiology Comment on above: Abnormal liver funct ion test [R79.89] Start: 07-13-2024 End: 07-14-2024 Follow-up encounter Lilian A Suppan HOME ENERGY CONSULTANT.BANQUET DIRECTOR Work Phone: [facility] [place] Start: 07-11-2024 End: 07-11-2024 ambulatory LILIAN SUPPAN Facility:[facility] Start: 07-11-2024 End: 07-11-2024 Patient encounter procedure Lilian A Suppan HOME ENERGY CONSULTANT.BANQUET DIRECTOR Work Phone: [facility] [place] Comment on above: Neck pain, chronic ( Primary Dx); Gastroesophageal reflux disease, unspecified whether esophagitis present; Myofascial pain; RLS (restless legs syndrome); Adjustment disorder with depressed mood; Screening for depression; Stage 3a chronic kidney disease (HCC); Heart failure with preserved ejection fraction, unspecified HF chronicity (HCC); Screening for diabetes mellitus; Screening for cervical cancer Start: 07-07-2024 End: 07-07-2024 Telephone encounter Lilian Srivastava APRN.CNP Work Phone: [facility] [place] Comment on above: Appointment Start: 07-05-2024 End: 07-06-2024 Refill Lilian Srivastava APRN.CNP Work Phone: [facility] [place] Comment on above: Refill Request Start: 06-21-2024 End: 06-21-2024 Refill No Pcp ([facility]) [facility] Medicine Kami almaguer Comment on above: Refill Request Start: 06-01-2024 End: 06-01-2024 ambulatory ITA GONZALEZ Facility:[facility] Start: 06-01-2024 End: 06-01-2024 Office outpatient visit 25 minutes Keven Lawrence APRN.CNP Work Phone: [facility] Comment on above: Bacterial sinusitis (Primary Dx) Start: 04-12-2024 End: 04-13-2024 Refill Ita Gonzalez PA-C [facility] [place] Comment on above: Refill Request Start: 03-22-2024 End: 03-27-2024 ambulatory Ita Gonzalez PA-C Internal Medicine [place] [id number] Start: 02-22-2024 End: 02-22-2024 Refill Ita Gonzalez PA-C [facility] [place] Comment on above: Refill Request Start: 10-04-2023 Refill Carol gomez PA-C Work Phone: [facility] [place] Comment on above: Refill Request Start: 09-09-2023 Refill Carol gomez PA-C Work Phone: [facility] [place] Comment on above: Refill Request Start: 09-02-2023 End: 09-02-2023 Emergency department patient visit Carol FRANCISCO Facility:[facility] Start: 06-21-2023 End: 06-21-2023 Office outpatient visit 15 minutes Lilian Srivastava HOME ENERGY CONSULTANT.LINEN SUPERVISOR Work Phone: [facility] Comment on above: Torticollis (Primary Dx); Anxiety with depression; Adjustment disorder with depressed mood; Anxiety neurosis Start: 06-10-2023 Refill Carol Mclaughlin on PA-C Work Phone: [facility] Comment on above: Refill Request Start: 05-10-2023 End: 05-10-2023 Office outpatient visit 15 minutes Lilian Mirandaan HOME ENERGY CONSULTANT.LINEN SUPERVISOR Work Phone: [facility] Comment on above: Abdominal pain of un known cause (Primary Dx); Anxiety with depression Start: 04-29-2023 Telephone encounter Sabine Jorge L Rosas HOME ENERGY CONSULTANT.BANQUET DIRECTOR Work Phone: [facility] Start: 02-24-2023 End: 02-24-2023 Emergency department patient visit [facility] Work Phone: Start: 02-22-2023 Chart abstracting Effie gupta [facility] Work Phone: Psychology Start: 02-12-2023 Telephone encounter Effie melgar [facility] Work Phone: Psychology Comment on above: [facility] Start: 02-11-2023 End: 02-11-2023 Patient encounter procedure Carol Gonzalez PA-C Work Phone: [facility] Comment on above: Abnormality of abdom inal aorta (Primary Dx); Aortic stenosis, mild; Anxiety neurosis; Adjustment disorder with depressed mood; Diarrhea of presumed infectious origin; Acute upper respiratory infection Start: 08-26-2022 Refill Carol Mclaughlin on PA-C Work Phone: [facility] Comment on above: Refill Request Start: 08-17-2022 Telephone encounter Carol Gonzalez PA-C Work Phone: [facility] Comment on above: Results Start: 07-30-2022 End: 07-30-2022 Patient encounter procedure Carol Gonzalez PA-C Work Phone: [facility] Comment on above: Hyperlipidemia, mixe d (Primary Dx); Aortic stenosis, mild; Chronic progressive renal failure, stage 3 (moderate) (HCC); Atrophy of left kidney; RLS (restless legs syndrome); Myofascial pain; Vitamin B12 deficiency; Iron deficiency anemia due to chronic blood loss; Gastroesophageal reflux disease, unspecified whether esophagitis present; Anxiety neurosis; Adjustment disorder with depressed mood; Current use of proton pump inhibitor; Screening for cervical cancer; Screening for colorectal cancer Start: 07-13-2022 End: 07-13-2022 Patient encounter procedure Na Aguirre PA Work Phone: [facility] Comment on above: Diarrhea, unspecifie d type (Primary Dx) Start: 07-03-2022 Refill Carol Mclaughlin on PA-C Work Phone: [facility] Comment on above: Refill Request Start: 05-13-2022 ambulatory Carol Mclaughlin on PA-C Work Phone: Internal Medicine [facility] Start: 03-30-2022 Telephone encounter Nelly dash PA-C Work Phone: [facility] Comment on above: Results Start: 03-27-2022 End: 03-27-2022 Patient encounter procedure Gena Hutchinson PA-C Work Phone: [facility] Comment on above: Urinary frequency (P rimary Dx) Start: 02-24-2022 End: 02-24-2022 Emergency department patient visit [facility] Start: 02-03-2022 Telephone encounter Shira Lux APRN.CNP Work Phone: [facility] Comment on above: Results Start: 02-02-2022 End: 02-02-2022 Patient encounter procedure Peter Quesada MD Work Phone: [facility] Comment on above: Sore throat (Primary Dx) Start: 01-28-2022 Refill Carol Mclaughlin on PA-C Work Phone: [facility] [place] Comment on above: Refill Request Start: 01-21-2022 End: 01-21-2022 [facility] Start: 01-20-2022 ambulatory Nurse Card Adm in [facility] Work Phone: Cardiology Comment on above: Stress Test Instruct ions Start: 01-20-2022 E-mail encounter fro m caregiver Nurse Card Admin [facility] Work Phone: [place] [facility] Start: 12-30-2021 Refill Carol Saran Mclaughlin on PA-C Work Phone: [facility] [place] Comment on above: Refill Request Start: 12-11-2021 End: 12-11-2021 Patient encounter procedure Carol Saran Gonzalez PA-C Work Phone: [facility] Comment on above: Precordial pain (Anne stella Dx); Kidney stone; Hydroureter on left; Hydronephrosis of left kidney Start: 11-26-2021 End: 11-26-2021 Patient encounter procedure Cheryle Braswell APRN.BANQUET DIRECTOR Work Phone: [facility] Comment on above: Heart palpitations ( Primary Dx); Injury of head, initial encounter Start: 11-26-2021 End: 11-26-2021 [facility] Start: 11-22-2021 End: 11-22-2021 Emergency department patient visit [facility] Start: 10-20-2021 End: 10-20-2021 Patient encounter procedure Keven Lawrence APRN.BANQUET DIRECTOR Work Phone: [facility] Comment on above: Burning with urinati on (Primary Dx) Start: 10-13-2021 ambulatory Carol Mclaughlin on PA-C Work Phone: [facility] [place] Start: 10-13-2021 Patient encounter procedure Carol Saran Gonzalez PA-C Work Phone: [facility] Comment on above: Outpatient [place] py Start: 09-13-2021 End: 09-13-2021 Patient encounter procedure Sabine Lyon APRN.BANQUET DIRECTOR Work Phone: [place] [facility] Comment on above: Urinary frequency Start: 07-28-2021 End: 07-28-2021 Patient encounter procedure Nathalie Vazquez PA-C Work Phone: [facility] Comment on above: Urinary frequency (P rimary Dx) Start: 07-14-2021 End: 07-14-2021 Patient encounter procedure Nelly Allen PA-C Work Phone: [facility] Comment on above: Acute UTI (Primary D x); Nausea Start: 07-04-2021 Telephone encounter Chaparrita waterman HOME ENERGY CONSULTANT.BANQUET DIRECTOR Work Phone: [facility] [place] Comment on above: Results Start: 06-25-2021 End: 06-25-2021 Patient encounter procedure Marcelo Allen HOME ENERGY CONSULTANT.BANQUET DIRECTOR Work Phone: [facility] Comment on above: Burning with urinati on (Primary Dx) Procedures Date Procedure Procedure Detail Performing Clinician Start: 08-25-2024 Computed tomography of abdomen and pelvis with contrast DUNG FRANCISCO Work Phone: Start: 07-24-2024 Urnls dip stick/tabl et rgnt auto w/o microscopy Cheryle Braswell HOME ENERGY CONSULTANT.BANQUET DIRECTOR Work Phone: Start: 07-11-2024 Adult depression scr eening assessment Lilian Srivastava HOME ENERGY CONSULTANT.BANQUET DIRECTOR Work Phone: Start: 07-11-2024 Lipid 1995 panel - S isabel or Plasma Lilian Srivastava HOME ENERGY CONSULTANT.BANQUET DIRECTOR Work Phone: Start: 02-24-2023 Computed tomography of abdomen and pelvis with intravenous contrast Start: 02-11-2023 COVID & INFLUENZA A/ B & RSV NAAT, ROUTINE M Saran Gonzalez PA-C Work Phone: Start: 08-13-2022 Lipid 1996 panel - S isabel or Plasma DUNG Gonzalez PA-C Work Phone: Start: 03-27-2022 Culture bacterial quanttative colony count urine Gena Hutchinson PA-C Work Phone: Start: 03-27-2022 Urnls dip stick/tabl et rgnt auto w/o microscopy Sabine Lyon HOME ENERGY CONSULTANT.BANQUET DIRECTOR Work Phone: Start: 02-02-2022 [facility] (POC) Peter Quesada MD Work Phone: Start: 01-21-2022 Computed tomography of abdomen and pelvis with intravenous contrast Start: 11-26-2021 Plain chest X-ray Start: 11-22-2021 CT of abdomen and pe lvis without contrast Start: 10-20-2021 Urnls dip stick/tabl et rgnt auto w/o microscopy [facility] Provider Start: 09-13-2021 Urnls dip stick/tabl et rgnt auto w/o microscopy [facility] Provider Start: 07-28-2021 Urnls dip stick/tabl et rgnt auto w/o microscopy Nelly Allen PA-C Work Phone: Start: 07-14-2021 Urnls dip stick/tabl et rgnt auto w/o microscopy Nelly FRANCISCO-C Work Phone: Start: 06-25-2021 Urnls dip stick/tabl et rgnt auto w/o microscopy Cheryle Braswell HOME ENERGY CONSULTANT.BANQUET DIRECTOR Work Phone: Start: 12-23-2020 Adult depression scr eening assessment Marcelo Allen HOME ENERGY CONSULTANT.BANQUET DIRECTOR Work Phone: Start: 08-20-2015 Colonoscopy Marcelo san HOME ENERGY CONSULTANT.BANQUET DIRECTOR Work Phone: Start: 08-20-2015 Eden san HOME ENERGY CONSULTANT.BANQUET DIRECTOR Work Phone: Bacteria identified in Urine by Culture Respiratory syncytia l virus antigen assay SARS-CoV-2 & FLU Ant igen (Rapid) Urine culture Plan of Treatment Date Care Activity Detail Author Start: 12-07-2034 RSV Vaccine (1 - 1-dose 75+ series) RSV Vaccine (1 - 1-dose 75+ series) [facility] Start: 07-11-2029 Lipid panel Lipid Screening [facility] Start: 08-14-2027 Lipid 1996 panel - Serum or Plasma Lipid Screening [facility] Start: 08-14-2027 Lipid panel Lipid Screening [facility] Start: 08-14-2027 LIPID SCREEN LIPID SCREEN [facility] Start: 07-12-2027 Diabetes Screening Diabetes Screening [facility] Start: 05-21-2026 Urine microalbumin profile [facility] Start: 04-28-2026 Diabetes Screening Diabetes Screening [facility] Start: 12-23-2025 PNEUMOCOCCAL (4 - PPSV23 if available, else PCV20) PNEUMOCOCCAL (4 - PPSV23 if available, else PCV20) [facility] Start: 12-23-2025 PNEUMOCOCCAL (4 - PPSV23 or PCV20) PNEUMOCOCCAL (4 - PPSV23 or PCV20) [facility] Start: 12-23-2025 Pneumococcal vaccination Pneumococcal Vaccine (4 - PPSV23 or PCV20) [facility] Start: 11-15-2025 Annual PCP Team Chronic Disease Visit Annual PCP Team Chronic Disease Visit [facility] Start: 08-13-2025 DIABETES SCREEN DIABETES SCREEN [facility] Start: 08-13-2025 Diabetes Screening Diabetes Screening [facility] Start: 07-11-2025 Annual PCP Team Chronic Disease Visit Annual PCP Team Chronic Disease Visit [facility] Start: 07-11-2025 Complete blood count Hemoglobin/Hematocrit [facility] Start: 07-11-2025 Covid-19 Vaccine () Covid-19 Vaccine () [facility] Comment on above: Postponed from 11/28/2023 (Declined at t his time) Start: 07-11-2025 Creatinine measurement Serum Creatinine [facility] Start: 07-11-2025 Depression Screening Depression Screening [facility] Start: 07-11-2025 Screening for malignant neoplasm of breast Mammogram Screening [facility] Comment on above: Postponed from 08/19/2016 (Declined at t his time) Start: 07-11-2025 Screening for malignant neoplasm of cervix Cervical Cancer Screening [facility] Comment on above: Postponed from 02/18/2015 (Declined at t his time) Start: 07-11-2025 Screening for malignant neoplasm of colon Colorectal Cancer Screening [facility] Comment on above: Postponed from 12/07/2004 (Declined at t his time) Start: 01-11-2025 End: 01-11-2025 Patient encounter procedure 01/11/2025 3:00 PM EDT Office Visit [facility] [place] [address] [place] [address] Lilian Srivastava APRN.BANQUET DIRECTOR [address] [place], [place] [id number] 6 month exam [facility] [place] Comment on above: 6 month exam Start: 11-02-2024 End: 11-02-2024 Patient encounter procedure 11/02/2024 2:45 PM EDT Office Visit Urology [address] [address] Jorge Sands MD [address] [place] [id number] 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 on 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) and hyperdense cyst in the left kidney Urology Comment on above: 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 on CT and right kidn ey (not new) and hyperdense cyst in the left kidney Start: 08-09-2024 End: 08-09-2024 Patient encounter procedure 08/09/2024 1:40 PM EDT Appointment Cat Scan [address] [place], [place] [id number] CT KIDNEY WO/W IVCON Cat Scan Comment on above: CT KIDNEY WO/W IVCON Start: 07-25-2024 End: 10-24-2024 Acute hepatitis 2000 panel - Serum HEP ACUTE PANEL BL Lab Routine Fatty liver Expected: 07/25/2024, Expires: 10/24/2024 [facility] Comment on above: Expected: 07/25/2024, Expires: Start: 07-25-2024 End: 10-24-2024 [id number] [Mass/volume] in Serum or Plasma ALPHA FETOPROTEIN Lab Routine Fatty liver Expected: 07/25/2024, Expires: 10/24/2024 [facility] Comment on above: Expected: 07/25/2024, Expires: Start: 07-25-2024 End: 10-24-2024 Ferritin [Mass/volume] in Serum or Plasma FERRITIN Lab Routine Fatty liver Expected: 07/25/2024, Expires: 10/24/2024 [facility] Comment on above: Expected: 07/25/2024, Expires: Start: 07-25-2024 End: 10-24-2024 Gamma glutamyl transferase [Enzymatic activity/volume] in Serum or Plasma GGT Lab Routine Fatty liver Expected: 07/25/2024, Expires: 10/24/2024 [facility] Comment on above: Expected: 07/25/2024, Expires: Start: 07-25-2024 End: 10-24-2024 Hepatic function 2000 panel - Serum or Plasma HEPATIC FUNCTION PNL Lab Routine Fatty liver Expected: 07/25/2024, Expires: 10/24/2024 [facility] Work Phone: Comment on above: Expected: 07/25/2024, Expires: Start: 07-25-2024 End: 10-24-2024 Iron and Iron binding capacity panel - Serum or Plasma IRON AND TIBC Lab Routine Fatty liver Expected: 07/25/2024, Expires: 10/24/2024 [facility] Comment on above: Expected: 07/25/2024, Expires: Start: 07-25-2024 End: 10-24-2024 Smooth muscle Ab [Presence] in Serum SMOOTH MUSCLE AB SCR Lab Routine Fatty liver Expected: 07/25/2024, Expires: 10/24/2024 [facility] Comment on above: Expected: 07/25/2024, Expires: Start: 07-24-2024 End: 10-23-2024 Bacteria identified in Urine by Culture BACTERIAL CULTURE, URINE Microbiology Routine Acute UTI Expected: 07/24/2024, Expires: 10/23/2024 [facility] Work Phone: Comment on above: Expected: 07/24/2024, Expires: Start: 07-20-2024 End: 08-12-2025 US Abdomen RUQ US ABD RIGHT UPPER QUADRANT Radiology Routine Abnormal liver function test Expected: 07/20/2024, Expires: 08/12/2025 [facility] Work Phone: Comment on above: Expected: 07/20/2024, Expires: 6 Start: 07-11-2024 End: 07-11-2024 Patient encounter procedure 07/11/2024 3:20 PM EDT Office Visit [facility] [place] [address] [place] [address] Lilian Srivastava APRN.BANQUET DIRECTOR [address] [place] [address] yearly visit [facility] [place] Comment on above: yearly visit [facility] Start: 07-11-2024 End: 10-10-2024 CBC W Auto Differential panel - Blood [facility] Work Phone: Comment on above: Expected: 07/11/2024, Expires: Start: 07-11-2024 End: 10-10-2024 Cobalamin (Vitamin B12) [Mass/volume] in Serum or Plasma [facility] Comment on above: Expected: 07/11/2024, Expires: Start: 07-11-2024 End: 10-10-2024 Comprehensive metabolic 2000 panel - Serum or Plasma [facility] Comment on above: Expected: 07/11/2024, Expires: Start: 07-11-2024 End: 10-10-2024 Hemoglobin A1c in Blood [facility] Comment on above: Expected: 07/11/2024, Expires: Start: 07-11-2024 End: 10-10-2024 LIPID PANEL, NONFASTING [facility] Comment on above: Expected: 07/11/2024, Expires: Start: 07-11-2024 End: 10-10-2024 Magnesium [Mass/volume] in Serum or Plasma [facility] Comment on above: Expected: 07/11/2024, Expires: Start: 07-11-2024 End: 10-10-2024 Thyrotropin [Units/volume] in Serum or Plasma [facility] Comment on above: Expected: 07/11/2024, Expires: Start: 07-10-2024 End: 07-10-2024 Patient encounter procedure 07/10/2024 3:20 PM EDT Office Visit [facility] [place] [address] [place] [address] Lilian Srivastava APRN.BANQUET DIRECTOR [address] [place], [place] [id number] yearly visit [facility] [place] Comment on above: yearly visit [facility] Start: 07-07-2024 End: 07-07-2024 Patient encounter procedure 07/07/2024 3:40 PM EDT Office Visit [facility] [place] [address] [place] [address] Lilian Srivastava APRN.BANQUET DIRECTOR [address] [facility] [place], [place] [address] yearly visit [facility] [place] Comment on above: yearly visit [facility] Start: 06-20-2024 Annual PCP Team Chronic Disease Visit Annual PCP Team Chronic Disease Visit [facility] Start: 04-28-2024 Complete blood count Hemoglobin/Hematocrit [facility] Start: 04-28-2024 Creatinine measurement Serum Creatinine [facility] Start: 03-11-2024 Annual PCP Team Chronic Disease Visit Annual PCP Team Chronic Disease Visit [facility] Start: 02-12-2024 Annual PCP Team Chronic Disease Visit Annual PCP Team Chronic Disease Visit [facility] Start: 02-12-2024 Covid-19 Vaccine ( season) Covid-19 Vaccine () [facility] Comment on above: Postponed from 11/27/2022 (Declined at t his time) Start: 02-12-2024 RSV Vaccine (1 - 1-dose 60+ series) RSV Vaccine (1 - 1-dose 60+ series) [facility] Comment on above: Postponed from 2019 (Declined at t his time) Start: 02-12-2024 Shingrix Vaccine (2 of 2) Shingrix Vaccine (2 of 2) [facility] Comment on above: Postponed from 02/17/2021 (Declined at t his time) Start: 12-23-2023 End: 12-23-2023 Patient encounter procedure 12/23/2023 3:00 PM EDT Office Visit Family Medicine [place] [address] [facility] [place] [address] Lilian Srivastava APRN.LINEN SUPERVISOR [address] [place] [address] follow up for 6 months [facility] Comment on above: follow up for 6 months Start: 11-28-2023 Covid-19 Vaccine () Covid-19 Vaccine () [facility] Start: 08-14-2023 HEMOGLOBIN/HEMATOCRIT HEMOGLOBIN/HEMATOCRIT [facility] Start: 08-14-2023 SERUM CREATININE SERUM CREATININE [facility] Start: 07-31-2023 ANNUAL PCP TEAM CHRONIC DISEASE VISIT ANNUAL PCP TEAM CHRONIC DISEASE VISIT [facility] Start: 07-31-2023 COVID-19 VACCINE (3 - Booster for Pfizer series) COVID-19 VACCINE (3 - Booster for Pfizer series) [facility] Comment on above: Postponed from 08/29/2020 (Declined at t his time) Start: 03-29-2023 Depression Assessment Depression Assessment [facility] Start: 02-24-2023 [facility] Start: 02-24-2023 [facility] Start: 02-24-2023 Bacteria identified in Urine by Culture Urine Culture [facility] Start: 02-10-2023 End: 05-12-2023 Erythrocyte sedimentation rate SED RATE WESTERGREN Lab Routine Abnormality of abdominal aorta Expected: 02/10/2023, Expires: 05/12/2023 [facility] Work Phone: Comment on above: Expected: 02/10/2023, Expires: Start: 12-11-2022 ANNUAL PCP TEAM CHRONIC DISEASE VISIT ANNUAL PCP TEAM CHRONIC DISEASE VISIT [facility] Start: 07-30-2022 End: 09-29-2022 CBC W Auto Differential panel - Blood CBC + DIFF Lab Routine Adjustment disorder with depressed mood Anxiety neurosis Atrophy of left kidney Chronic progressive renal failure, stage 3 (moderate) (HCC) RLS (restless legs syndrome) Vitamin B12 deficiency Iron deficiency anemia due to chronic blood loss Gastroesophageal reflux disease, unspecified whether esophagitis present Expected: 07/30/2022, Expires: 09/29/2022 [facility] Work Phone: Comment on above: Expected: 07/30/2022, Expires: Start: 07-30-2022 End: 09-29-2022 Cobalamin (Vitamin B12) [Mass/volume] in Serum or Plasma VITAMIN B12 BLOOD Lab Routine Vitamin B12 deficiency Expected: 07/30/2022, Expires: 09/29/2022 [facility] Work Phone: Comment on above: Expected: 07/30/2022, Expires: Start: 07-30-2022 End: 09-29-2022 Comprehensive metabolic 2000 panel - Serum or Plasma COMP METABOLIC PANEL Lab Routine Adjustment disorder with depressed mood Anxiety neurosis Atrophy of left kidney Chronic progressive renal failure, stage 3 (moderate) (HCC) Vitamin B12 deficiency Iron deficiency anemia due to chronic blood loss Gastroesophageal reflux disease, unspecified whether esophagitis present Hyperlipidemia, mixed Expected: 07/30/2022, Expires: 09/29/2022 [facility] Work Phone: Comment on above: Expected: 07/30/2022, Expires: Start: 07-30-2022 End: 09-29-2022 Folate [Mass/volume] in Serum or Plasma FOLATE SERUM Lab Routine Vitamin B12 deficiency Expected: 07/30/2022, Expires: 09/29/2022 [facility] Work Phone: Comment on above: Expected: 07/30/2022, Expires: 3 Start: 07-30-2022 End: 09-29-2022 Iron and Iron binding capacity panel - Serum or Plasma IRON + TIBC Lab Routine RLS (restless legs syndrome) Iron deficiency anemia due to chronic blood loss Expected: 07/30/2022, Expires: 09/29/2022 [facility] Work Phone: Comment on above: Expected: 07/30/2022, Expires: Start: 07-30-2022 End: 09-29-2022 Lipid 1996 panel - Serum or Plasma LIPID PANEL BASIC Lab Routine Aortic stenosis, mild Hyperlipidemia, mixed Expected: 07/30/2022, Expires: 09/29/2022 [facility] Work Phone: Comment on above: Expected: 07/30/2022, Expires: 3 Start: 07-30-2022 End: 09-29-2022 Magnesium [Mass/volume] in Serum or Plasma MAGNESIUM BLD Lab Routine Current use of proton pump inhibitor Expected: 07/30/2022, Expires: 09/29/2022 [facility] Work Phone: Comment on above: Expected: 07/30/2022, Expires: 3 Start: 06-30-2022 ANNUAL PCP TEAM CHRONIC DISEASE VISIT ANNUAL PCP TEAM CHRONIC DISEASE VISIT [facility] Start: 05-08-2022 ANNUAL PCP TEAM CHRONIC DISEASE VISIT ANNUAL PCP TEAM CHRONIC DISEASE VISIT [facility] Start: 03-31-2022 LIPID SCREEN LIPID SCREEN [facility] Start: 03-29-2022 DEPRESSION ASSESSMENT DEPRESSION ASSESSMENT [facility] Start: 02-24-2022 [facility] Work Phone: Start: 02-24-2022 [facility] Work Phone: Start: 02-02-2022 End: 02-16-2022 Influenza virus A and B RNA and SARS-CoV-2 (COVID-19) N gene panel - Respiratory specimen by TOMAS with probe detection COVID WITH FLUA+B, ROUTINE Microbiology Routine Sore throat Expected: 02/02/2022, Expires: 02/16/2022 [facility] Work Phone: Comment on above: Expected: 02/02/2022, Expires: 2 Start: 01-21-2022 [facility] Work Phone: Start: 12-23-2021 Adult depression screening assessment DEPRESSION SCREENING [facility] Start: 11-26-2021 [facility] Work Phone: Start: 11-22-2021 [facility] Work Phone: Start: 10-02-2021 HEMOGLOBIN/HEMATOCRIT HEMOGLOBIN/HEMATOCRIT [facility] Start: 10-02-2021 SERUM CREATININE SERUM CREATININE [facility] Start: 07-28-2021 End: 09-27-2021 Basic metabolic 2000 panel - Serum or Plasma BASIC METABOLIC PNL Lab Routine Urinary frequency Expected: 07/28/2021, Expires: 09/27/2021 [facility] Work Phone: Comment on above: Expected: 07/28/2021, Expires: 2 Start: 07-04-2021 End: 09-03-2021 BENZO CONFIRM, URINE BENZO CONFIRM, URINE Lab Routine Anxiety neurosis Expected: 07/04/2021, Expires: 09/03/2021 [facility] Work Phone: Comment on above: Expected: 07/04/2021, Expires: 2 Start: 05-25-2021 DIABETES SCREEN DIABETES SCREEN [facility] Start: 03-29-2021 DEPRESSION ASSESSMENT DEPRESSION ASSESSMENT [facility] Start: 02-17-2021 SHINGRIX VACCINE (2 of 2) SHINGRIX VACCINE (2 of 2) [facility] Start: 12-04-2020 COVID-19 VACCINE (3 - Booster for Pfizer series) COVID-19 VACCINE (3 - Booster for Pfizer series) [facility] Start: 08-29-2020 COVID-19 VACCINE (3 - Booster for Pfizer series) COVID-19 VACCINE (3 - Booster for Pfizer series) [facility] Start: 08-19-2016 Colonoscopy COLONOSCOPY [facility] Start: 08-19-2016 COLORECTAL CANCER SCREENING COLORECTAL CANCER SCREENING [facility] Start: 08-19-2016 Mammography [facility] Start: 08-19-2016 Screening for malignant neoplasm of breast Mammogram Screening [facility] Start: 08-19-2016 Screening for malignant neoplasm of colon [facility] Start: 02-18-2015 HPV TESTING HPV TESTING [facility] Start: 02-18-2015 PAP TESTING PAP TESTING [facility] Start: 02-18-2015 Screening for malignant neoplasm of cervix [facility] Start: 12-07-2004 COLOGUARD (FIT-DNA) COLOGUARD (FIT-DNA) [facility] Start: 12-07-[address] COLONOGRAPHY [facility] Start: 12-07-2004 FECAL OCCULT BLOOD FECAL OCCULT BLOOD [facility] Start: 12-07-2004 Screening for malignant neoplasm of colon [facility] Start: 12-07-2004 SIGMOIDOSCOPY SIGMOIDOSCOPY [facility] Start: 12-07-1977 Depression Screening Depression Screening [facility] Bacteria identified in Urine by Culture [facility] Work Phone: Comment on above: Ordered: 06/25/2021 Bacteria identified in Urine by Culture URINE CULTURE Microbiology Routine Acute UTI Nausea Ordered: 07/14/2021 [facility] Work Phone: Comment on above: Ordered: 07/14/2021 Bacteria identified in Urine by Culture URINE CULTURE Microbiology Routine Urinary frequency Ordered: 07/28/2021 [facility] Work Phone: Comment on above: Ordered: 07/28/2021 Bacteria identified in Urine by Culture URINE CULTURE Microbiology Routine Urinary frequency Ordered: 09/13/2021 [facility] Work Phone: Comment on above: Ordered: 09/13/2021 Bacteria identified in Urine by Culture URINE CULTURE Microbiology Routine Burning with urination Ordered: 10/20/2021 [facility] Work Phone: Comment on above: Ordered: 10/20/2021 Bacteria identified in Urine by Culture Urine Culture [facility] Work Phone: Clostridioides diffi cile DNA [Presence] in Unspecified specimen by TOMAS with probe detection [facility] Clostridioides diffi cile toxin genes [Presence] in Stool by TOMAS with probe detection C. DIFFICILE PCR Lab Routine Diarrhea, unspecified type Ordered: 07/13/2022 [facility] Work Phone: Comment on above: Ordered: 07/13/2022 COLOGUARD COLOGUARD Lab Ro utine Screening for colorectal cancer Ordered: 07/30/2022 [facility] Work Phone: Comment on above: Ordered: 07/30/2022 End: 08-25-2025 CT Kidney WO and W contrast IV CT KIDNEY WO/W IVCON Radiology Routine Other specified disorders of kidney and ureter 1 Occurrences starting 07/26/2024 until 08/25/2025 [facility] Comment on above: 1 Occurrences starting 07/26/2024 until 08/25/2025 End: 04-21-2025 DBT Breast - bilateral screening RENETTA SCREENING W ANNI Radiology Routine Encounter for screening mammogram for breast cancer 1 Occurrences starting 03/22/2024 until 04/21/2025 [facility] Comment on above: 1 Occurrences starting 03/22/2024 until 04/21/2025 End: 12-11-2022 Echocardiography ECHO Cardiology Routine Precordial pain 1 Occurrences starting 12/11/2021 until 12/11/2022 [facility] Work Phone: Comment on above: 1 Occurrences starting 12/11/2021 until 12/11/2022 ENTERIC BACTERIAL PA MADELINE BY PCR ENTERIC BACTERIAL PANEL BY PCR Lab Routine Diarrhea, unspecified type Ordered: 07/13/2022 [facility] Work Phone: Comment on above: Ordered: 07/13/2022 Gastrointestinal pathogens panel - Stool by TOMAS with probe detection [facility] Lactoferrin [Presenc e] in Stool by Immunoassay [facility] End: 06-12-2023 RENETTA SCREENING RENETTA SCREENING Radiology Routine Encounter for screening mammogram for breast cancer 1 Occurrences starting 05/13/2022 until 06/12/2023 [facility] Work Phone: Comment on above: 1 Occurrences starting 05/13/2022 until 06/12/2023 NM CARDIAC PERF STRESS/PHARM NM CARDIAC PERF STRESS/PHARM Radiology Routine Precordial pain Ordered: 12/11/2021 [facility] Work Phone: Comment on above: Ordered: 12/11/2021 Ova and parasites identified in Unspecified specimen by Light microscopy OVA + PARA MICROSCOPIC Microbiology Routine Diarrhea, unspecified type Ordered: 07/13/2022 [facility] Work Phone: Comment on above: Ordered: 07/13/2022 Ova and parasites identified in Unspecified specimen by Light microscopy [facility] Patient Education [facility] Work Phone: Patient referral [facility] Work Phone: UA DIP, URINE (POC) UA DIP, URIN E (POC) Lab Routine Burning with urination Ordered: 10/20/2021 [facility] Work Phone: Comment on above: Ordered: 10/20/2021 US Abdomen RUQ US ABD RIGHT UPP ER QUADRANT Radiology Routine Abnormal liver function test 07/24/2024 4:11 PM EDT [facility] Work Phone: [facility] Immunizations Immunization Date Immunization Notes Care Provider Yisel peralta 12-23-2020 pneumococcal polysaccharide vaccine, 23 valent Marcelo Allen HOME ENERGY CONSULTANT.BANQUET DIRECTOR Work Phone: [facility] 12-23-2020 zoster vaccine recombinant Marcelo Allen HOME ENERGY CONSULTANT.BANQUET DIRECTOR Work Phone: [facility] 07-04-2020 COVID-19 vaccine, ag e 12+ yr (PFIZER-BIONTECH - PURPLE TOP) Marcelo Allen HOME ENERGY CONSULTANT.BANQUET DIRECTOR Work Phone: [facility] 06-20-2020 pneumococcal conjuga te vaccine, 13 valent Marcelo Allen HOME ENERGY CONSULTANT.BANQUET DIRECTOR Work Phone: [facility] 06-11-2020 COVID-19 vaccine, ag e 12+ yr (PFIZER-BIONTECH - PURPLE TOP) Marcelo Allen HOME ENERGY CONSULTANT.BANQUET DIRECTOR Work Phone: [facility] 05-21-2016 tetanus toxoid, redu brayan diphtheria toxoid, and acellular pertussis vaccine, adsorbed Marcelo Allen HOME ENERGY CONSULTANT.BANQUET DIRECTOR Work Phone: [facility] 12-09-2015 tetanus and diphther ia toxoids, adsorbed, preservative free, for adult use (2 Lf of tetanus toxoid and 2 Lf of diphtheria toxoid) Marcelo Allen HOME ENERGY CONSULTANT.BANQUET DIRECTOR Work Phone: [facility] 01-30-2013 pneumococcal polysaccharide vaccine, 23 valent Marcelo Allen HOME ENERGY CONSULTANT.BANQUET DIRECTOR Work Phone: [facility] 12-03-2011 tetanus toxoid, redu brayan diphtheria toxoid, and acellular pertussis vaccine, adsorbed Marcelo Allen HOME ENERGY CONSULTANT.BANQUET DIRECTOR Work Phone: [facility] Payers Date Payer Category Payer Self-pay [id number] 2022 Medicaid [id number] 2020 Medicaid [employer] [id number] 2020-Present [phone] [address] [place] [address] Medicaid [id number] 2020 Medicaid [id number] Unknown [id number] aecad Unknown [id number] Unknown [id number] Social History Date Type Detail Facility Start: 09-26-2014 End: 06-01-2024 Tobacco smoking status NHIS Ex-smoker [facility] Start: 06-27-1989 End: 06-27-2014 History of tobacco use Current smoker [facility] Start: 06-27-1989 End: 06-27-2014 History of tobacco use Cigarette Smoker [facility] Start: 09-26-2014 End: 06-01-2024 Tobacco use and exposure Smokeless tobacco non-user [facility] Start: 06-25-2021 End: 11-15-2024 Alcohol intake Current non-drinker of alcohol (finding) [facility] Start: 1960 Sex Assigned At Not on file C [facility] Start: 06-15-2021 End: 02-02-2022 Exposure to SARS-CoV-2 (event) Not sure [facility] Start: 11-22-2021 End: 02-24-2023 Tobacco smoking status NYIS Unknown if ever smoked [facility] Start: 06-18-2020 None [facility] Start: 06-18-2020 Alone [facility] Start: 05-28-2015 Non-smoker [facility] Start: 1960 Sex Assigned At Female W [facility] Start: 07-30-2022 End: 02-11-2023 History of Social function [facility] Start: 07-30-2022 End: 02-11-2023 Tobacco use panel [facility] Start: 02-28-2012 Adult Depression Screening Assessment 1 [facility] Start: 09-02-2023 Tobacco smoking stat us NYIS Smokes tobacco daily (finding) [facility] Functional Status Date Assessment Result Facility 09-26-2014 Are you deaf, or do you have serious difficulty hearing No 09/26/2014 2:08 PM Evelin Nazario [facility] 09-26-2014 Are you blind, or do you have serious difficulty seeing, even when wearing glasses No 09/26/2014 2:08 PM Evelin Nazario [facility] 09-26-2014 Do you have serious difficulty walking or climbing stairs No 09/26/2014 2:08 PM Evelin Nazario [facility] 09-26-2014 Do you have difficul ty dressing or bathing No 09/26/2014 2:08 PM Evelin Nazario [facility] 09-26-2014 Because of a physica l, mental, or emotional condition, do you have difficulty doing errands alone such as visiting a physician's office or shopping No 09/26/2014 2:08 PM Evelin Nazario [facility] Mental Status Date Assessment Result Facility 02-24-2022 Cognitive function Level Of Cons ciousness Awake;Alert;Appropriate;Fol lows Commands [facility] Work Phone: 11-26-2021 Cognitive function Voice/Name [facility] Work Phone: 09-26-2014 Because of a physica l, mental, or emotional condition, do you have serious difficulty concentrating, remembering, or making decisions No 09/26/2014 2:08 PM Evelin Nazario [facility] Clinical Notes 10-10-2015 to 01-11-2025 Chaparrita Newman APRN.BANQUET DIRECTOR - 11/15/2024 5:45 PM EDTPatient InstructionsTelephone Encounter - TrentlakeshiaCinthyaGELA - 08/10/2024 10:46 AM EDTTelephone Encounter - Yolanda GELA Mendes - 08/10/2024 10:46 AM EDT Note Date & Type Note Facility 01-11-2025 Note HNO ID: [id number] Author: LILIAN SRIVASTAVA APRN.TONI Service: ? Author Type: Nurse Practitioner Type: Progress Notes Filed: 01/11/2025 15:20 Note Text: This is a 64 year old female who presents today with: No chief complaint on file. HISTORY OF PRESENT ILLNESS: Dolores Barnhart is a 64 year old female. No chief complaint on file. The patient is a 64-year-old female with HTN and stage 1 diastolic dysfunction, presenting for follow-up of blood pressure management and evaluation of chronic lower extremity muscle pain. Dolores is a 64-year-old female with a history of HTN, presenting for an annual wellness visit, with additional complaints of leg pain and palpitations. Annual Wellness Exam: - Recent birthday since last visit. - Denies fever, chills, changes in hearing or vision, SOB, cough, wheezing, chest pain, leg swelling, orthopnea, nausea, emesis, hematuria, dysuria, joint pain, rashes, itching, excessive thirst, syncope, seizures, tremors, or suicidal ideation. - Reports ear congestion. - Recent weight loss, intentional. - Family history of HTN. - Denies having advanced directives; requests information. - Did not tolerate shingles vaccine. - Mother had a hip fracture and from it. Cataract Surgery: - Underwent right eye cataract surgery in October; reports improved vision. Hypertension: - Reports family history of HTN. - Recent BP readings noted to be a little high. Palpitations: - Describes sensation of heart shutting and then opening. - Reports heart racing. Diastolic Dysfunction: - Recent echocardiogram showed stage 1 diastolic dysfunction. Leg Pain: - Reports chronic leg pain from ankles to thighs. - Pain alleviated by tizanidine, which also causes somnolence. - Has tried taking half a tablet of tizanidine during the day with some relief. - Gabapentin provides some relief. - Denies joint pain or swelling. Constipation: - Reports chronic constipation. - Increased vegetable and water intake provides some relief. PAST MEDICAL HISTORY: PAST MEDICAL HISTORY Diagnosis Date Abnormal CT [...] in the left kidney in addition to continuedrectosigmoid junctional narrowing with recommendation for colonoscopy 11/06/15 [...] CT abd/ pel 05/28/15 treated in ED [facility]. Has f/u with Dr. Arthur for EGD [...] Xl [Etodolac], Prednisone, Prevacid [Lansoprazole], and Prozac [Fluoxe (more content not included)... [facility] 11-15-2024 Note HNO ID: [id number] Author: CHAPARRITA NEWMAN APRN.BANQUET DIRECTOR Service: ? Author Type: Nurse Practitioner Type: Progress Notes Filed: 11/15/2024 17:47 Note Text: This is a 63 year old female who presents today with: Dolores Barnhart is a 63-year-old female presenting for evaluation of chronic bilateral leg pain. HISTORY OF PRESENT ILLNESS: Chronic Bilateral Leg Pain: - Chronic, throbbing pain in bilateral legs, primarily from ankles to knees, x several months. - Describes sensation as little things are moving around in here. - Pain is constant, worsened by prolonged standing. - Alleviated by tizanidine, which provided 15 hours of relief per dose; stopped due to prescription running out. - Also taking gabapentin and ibuprofen with some relief; concerned about excessive ibuprofen use due to stomach issues. - Dolores denies leg cramps. - Reports previous restless legs syndrome, now replaced by pain. - Denies known trauma. - Reports bad veins and a lump where a vein is located; denies leg swelling. - Noticed purple discoloration of knees when cold. - Denies numbness or tingling in legs, except around ankles. - Tizanidine taken at night due to causing sleepiness and dizziness; helps with sleep, no morning grogginess. - Massaging legs at night provides some relief. PAST MEDICAL HISTORY: PAST MEDICAL HISTORY Diagnosis Date Abnormal CT [...] in the left kidney in addition to continuedrectosigmoid junctional narrowing with recommendation for colonoscopy 11/06/15 [...] CT abd/ pel 05/28/15 treated in ED [facility]. Has f/u with Dr. Arhtur for EGD and colonoscopy but cancelled and [...] Hcl] MEDICATIONS Current Outpatient Medications Medication Sig tiZANidine (ZANAFLEX) 4 mg tablet Take 1 tablet by mouth two times a day as needed. Omeprazole Magnesium (PRILOSEC OTC) 20 mg tablet Take 1 tablet by mouth two times a day. citalopram (CELEXA) 40 mg tablet Take 1 tablet by mouth once daily. gabapentin (NEURONTIN) 300 mg capsule Take 1 capsule by mouth three times a day for 180 days. busPIRone (BUSPAR) 5 mg tablet Take 1 tablet by mouth three times a day. No current facility-administered medications for this visit. FAMILY HISTORY Problem Relation Age of Onset Diabetes Father Cervical Cancer Paternal Grandmother Stroke Paternal Grandfather Psychiatry Mother Hea (more content not included)... [facility] 11-15-2024 History of Presen t illness Narrative This is a 63 year old female who presents today with: Dolores Barnhart is a 63-year-old female presenting for evaluation of chronic bilateral leg pain. HISTORY OF PRESENT ILLNESS: Chronic Bilateral Leg Pain: - Chronic, throbbing pain in bilateral legs, primarily from ankles to knees, x several months. - Describes sensation as little things are moving around in here. - Pain is constant, worsened by prolonged standing. - Alleviated by tizanidine, which provided 15 hours of relief per dose; stopped due to prescription running out. - Also taking gabapentin and ibuprofen with some relief; concerned about excessive ibuprofen use due to stomach issues. - Dolores denies leg cramps. - Reports previous restless legs syndrome, now replaced by pain. - Denies known trauma. - Reports bad veins and a lump where a vein is located; denies leg swelling. - Noticed purple discoloration of knees when cold. - Denies numbness or tingling in legs, except around ankles. - Tizanidine taken at night due to causing sleepiness and dizziness; helps with sleep, no morning grogginess. - Massaging legs at night provides some relief. PAST MEDICAL HISTORY: PAST MEDICAL HISTORY Diagnosis Date Abnormal CT [...] CT abd/ pel 05/28/15 treated in ED [facility]. Has f/u with Dr. Arthur for EGD [...] Hcl] MEDICATIONS Current Outpatient Medications Medication Sig tiZANidine (ZANAFLEX) 4 mg tablet Take 1 tablet by mouth two times a day as needed. Omeprazole Magnesium (PRILOSEC OTC) 20 mg tablet Take 1 tablet by mouth two times a day. citalopram (CELEXA) 40 mg tablet Take 1 tablet by mouth once daily. gabapentin (NEURONTIN) 300 mg capsule Take 1 capsule by mouth three times a day for 180 days. busPIRone (BUSPAR) 5 mg tablet Take 1 tablet by mouth three times a day. No current facility-administered medications for this visit. FAMILY HISTORY Problem Relation Age of Onset Diabetes Father Cervical Cancer Paternal Grandmother Stroke Paternal Grandfather Psychiatry Mother Heart Father Hypertension Father SOCIAL HISTORY[1] REVIEW OF SYSTEMS Cardiovascular: (+) palpitations Musculoskeletal: (+) throbbing leg pain, (-) leg cramps Skin: (+) purplish discoloration of knees when cold Neurological: (+) dizziness, (+) crawling sensation in legs, (+) numbness/tingling of ankles Psychiatric: (+) depressed mood EXAM: BP 122/77 Pulse 68 Resp 16 LMP 09/13/2006 SpO2 99% PHYSICAL EXAM: General Appearance: Well appearing, alert, in no acute distress, well-hydrated, well nourished.. Skin: Skin color, texture, turgor normal, no suspicious rashes or lesions. Head: Normocephalic, no masses, lesions, tenderness or abnormalities. Eyes: Anicteric sclera. Extraocular movements are intact. . Lungs: Lungs clear to auscultation. No wheezing, rhonchi, rales.. Heart: RRR without murmur, gallop, or rubs. No ectopy. Extremities: No deformities, edema, skin discoloration, clubbing or cyanosis. Good capillary refill. + lacy pattern over knees. + varicosity right lateral lower leg. Neurologic: Gait normal. ASSESSMENT/PLAN 1. Pain in both lower extremities (M79.604) - Chronic bilateral lower extremity pain, throbbing in nature, worsened by prolonged standing; associated with varicose veins and paresthesia around the ankles. - Pain previously managed with tizanidine 1 tablet nightly, providing significant relief; patient discontinued due to prescription lapse. - Gabapentin provides partial relief; prescription confirmed to be sufficient until January. - Restart tizanidine 1 tablet BID PRN; advised to continue use at bedtime due to sedative effects. Encourage to only use as needed for symptoms. - Discussed use of compression socks for symptomatic varicose veins. Discussed treatment plan and patient voices understanding. Patient's questions answered appropriately. Medications and potential side effects were discussed and patient voices understanding. Return to the office as scheduled or as needed for worsening/no improvement. Chaparrita Newman APRN.BANQUET DIRECTOR Recording using [employer] software for draft documentation of the visit was discussed with the patient/authorized used equipment sales representative; all questions welcomed and answered. Patient/authorized used equipment sales representative agreed to proceed [1] Social History Tobacco Use Smoking status: Former Current packs/day: 0.00 Types: Cigarettes Start date: 06/27/1989 Quit date: 06/27/2014 Years since quittin.3 Smokeless tobacco: Never Substance Use Topics Alcohol use: No Drug use: No documented in this encounter [facility] 11-15-2024 Instructions Chaparrita Newman APRN.BANQUET DIRECTOR - 11/15/2024 2:15 PM EDT You can use the tizanidine up to twice daily as needed for the leg pain. documented in this encounter [facility] 08-27-2024 Radiology Diagnostic study note [facility] Imaging Services [id number] [place], [place] [address] CT Abd/Pelvis W/WO Contrast MR#: [id number] Acct: [id number] Name: DOLORES BARNHART Rep #: [id number] : 1960 F 63 From: Muriel Guerin MD PCP: NOLAN Haley Status: REG C MIGUELITO Study:CT Abd/Pelvis W/WO Contrast Date of Exa m: 08/25/24 Exam# [id number] Ordering Dr: Gee Long MD PROCEDURE: CT ABD/PELVIS W/WO CONTRAST 08/25/2024 REASON FOR EXAM: RENAL MASS/ DISORDER OF KIDNEY/URETER TECHNIQUE: Abdomen and pelvis CT before and following intravenous contrast. Coronal and Sagittal reconstruction series were provided. One or more dose reduction techniques were used (e.g., Automated exposure control, adjustment of the mA and/or kV according to patient size, use of iterative reconstruction technique Study performed without and with 100 cc of Isovue 370. Images obtained in the multiphasic fashion FINDINGS: There is a fat containing lesion in the lower pole of the right kidney compatible with an angiomyolipoma. No hydronephrosis. No renal calculi. Prior cholecystectomy. There is a hyperdense mass in the lower pole of the left kidney which measures about 2 Hounsfield units. On venous phase imaging, this measures 5 Hounsfield units average. On delayed imaging, there isno enhancement. Normal pancreas. Normal bowel. No free-fluid. No free air. No bowel obstruction. 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 Nonenhancing cyst on the left. No solid masses. OVERALL FINAL ASSESSMENT: . LI-RADS is not meant to be used in patients <18 years or patients with cirrhosisdue to congenital hepatic fibrosis or due to vascular disorders, because these patients have a lower chance of developing HCC. Reading [facility] CC: Dr. Jean Long MD; NOLAN Haley ~ Critical Care Physician: Signed [facility] 08-10-2024 Telephone encounter Note Faxed order to [facility]. Left message for pt that order was faxed [facility] 08-10-2024 Miscellaneous Notes Faxed order to [facility]. Left message for pt that order was faxed Can we reorder at [facility] with previous order Pt returned the call and states the bar got too close to her chin and she got clautrophobic and got super anxious during her CT scan today. She states the CT scan machine at the hospital is different than this one. It doesn't come as close to her face. Pt would like to have CT scan done at [facility] where she has had them before. Images from the original note were not included. Toshia Mosqueda MA 08/09/24 3:27 PM Note Message left for return call. Toshia Mosqueda MA 08/09/24 3:25 PM Toshia Mosqueda MA attempted to contact Dolores Barnhart (Left Message) 08/09/24 3:10 PM Jean Long MD routed this conversation to [facility] Jean Parikh MD 08/09/24 3:10 PM Note ??? For a ct scan right.Can we check what is going on with the patient since she has literally had these before. I honestly don't know that I have ever had anyone need sedated for a ct scan. 08/09/24 2:40 PM Toshia Mosqueda MA routed this conversation to Jean Long MD Schmidt, Lindsey, MA LS 08/09/24 2:39 PM Note Radiology dept called and states patient could not complete the scan. Tech states before patients head barely got through the [place] band she was distraught and crying and panicky. Tech states for this scan a bolus has to be placed in patients abdomen so she has to be able to remain still. If need is detrimental tech recommends sedative but states then the patient must be accompanied with a courier driver. Toshia Mosqueda MA documented in this encounter [facility] 08-10-2024 Telephone encounter Note Can we reorder at [facility] with previous order [facility] 08-09-2024 Telephone encounter Note Pt returned the call and states the bar got too close to her chin and she got clautrophobic and got super anxious during her CT scan today. She states the CT scan machine at the hospital is different than this one. It doesn't come as close to her face. Pt would like to have CT scan done at [facility] where she has had them before. [facility] 08-09-2024 Telephone encounter Note Images from the original note were not included. Toshia Mosqueda MA LS 08/09/24 3:27 PM Note Message left for return call. Toshia Mosqueda MA 08/09/24 3:25 PM Toshia Mosqueda MA attempted to contact Dolores Barnhart (Left Message) 08/09/24 3:10 PM Jean Long MD routed this conversation to [facility] Jean Parikh MD 08/09/24 3:10 PM Note ??? For a ct scan right.Can we check what is going on with the patient since she has literally had these before. I honestly don't know that I have ever had anyone need sedated for a ct scan. 08/09/24 2:40 PM Toshia Mosqueda MA routed this conversation to Jean Long MD Schmidt, Lindsey, MA 08/09/24 2:39 PM Note Radiology dept called and states patient could not complete the scan. Tech states before patients head barely got through the [place] grande band she was distraught and crying and panicky. Tech states for this scan a bolus has to be placed in patients abdomen so she has to be able to remain still. If need is detrimental tech recommends sedative but states then the patient must be accompanied with a courier driver. Toshia Mosqueda MA [facility] 08-09-2024 History of Presen t illness Narrative RADIOLOGY SERVICE PROGRESS NOTE DATE OF SERVICE: August 09, 2024 TIME OF SERVICE: 14:00 EVENT: EXAM/PROCEDURE NOT COMPLETED - Patient became claustrophobic, reaction was: Moderate. ADDITIONAL EVENT DETAILS: N/A pt was claustrophobic and crying,afraid of putting her head thru ct scanner. kmr SIGNATURE: RT Asad(Tarun) PATIENT NAME: Dolores Barnhart DATE: August 09, 2024 TIME: 2:22 PM PAGER/CONTACT #: documented in this encounter [facility] 08-09-2024 Note HNO ID: [id number] Author: ELEANOR ARCHER RT(R) Service: ? Author Type: Service Shop Foreman Type: Progress Notes Filed: 08/09/2024 14:24 Note Text: RADIOLOGY SERVICE PROGRESS NOTE DATE OF SERVICE: August 09, 2024 TIME OF SERVICE: 14:00 EVENT: EXAM/PROCEDURE NOT COMPLETED - Patient became claustrophobic, reaction was: Moderate. ADDITIONAL EVENT DETAILS: N/A pt was claustrophobic and crying,afraid of putting her head thru ct scanner. kmr SIGNATURE: RT Asad(R) PATIENT NAME: Dolores Barnhart DATE: August 09, 2024 TIME: 2:22 PM PAGER/CONTACT #: [facility] 08-04-2024 Telephone encounter Note The following approved medication requests have been transmitted electronically. Requested Prescriptions Signed Prescriptions Disp Refills Omeprazole Magnesium (PRILOSEC OTC) 20 mg tablet 180 tablet 1 Sig: Take 1 tablet by mouth two times a day. Authorizing Provider: LILIAN SRIVASTAVA citalopram (CELEXA) 40 mg tablet 90 tablet 1 Sig: Take 1 tablet by mouth once daily. Authorizing Provider: LILIAN SRIVASTAVA gabapentin (NEURONTIN) 300 mg capsule 270 capsule 1 Sig: Take 1 capsule by mouth three times a day for 180 days. Authorizing Provider: LILIAN SRIVASTAVA APRN.CNP [facility] 08-04-2024 Miscellaneous Notes The following approved medication requests have been transmitted electronically. Requested Prescriptions Signed Prescriptions Disp Refills Omeprazole Magnesium (PRILOSEC OTC) 20 mg tablet 180 tablet 1 Sig: Take 1 tablet by mouth two times a day. Authorizing Provider: LILIAN SRIVASTAVA citalopram (CELEXA) 40 mg tablet 90 tablet 1 Sig: Take 1 tablet by mouth once daily. Authorizing Provider: LILIAN SRIVASTAVA gabapentin (NEURONTIN) 300 mg capsule 270 capsule 1 Sig: Take 1 capsule by mouth three times a day for 180 days. Authorizing Provider: LILIAN SRIVASTAVA APRN.CNP Prescription Refill Information The patient has been identified by name and date of : Yes Caregiver verified no other encounters exist for this prescription request: Yes Caregiver confirmed with patient/requestor that no other refills are due, in the near future, with this provider at this time: Yes The last office visit in the department: 07/11/24 Does the patient have a future office visit with this provider/department: Yes 01/11/25 Requested Prescriptions Pending Prescriptions Disp Refills Omeprazole Magnesium (PRILOSEC OTC) 20 mg tablet 120 tablet 0 Sig: Take 1 tablet by mouth two times a day. citalopram (CELEXA) 40 mg tablet 30 tablet 11 Sig: Take 1 tablet by mouth once daily. gabapentin (NEURONTIN) 300 mg capsule 270 capsule 3 Sig: Take 1 capsule by mouth three times a day. Caron Quezada August 04, 2024 3:20 PM documented in this encounter [facility] 08-04-2024 Telephone encounter Note Prescription Refill Information The patient has been identified by name and date of : Yes Caregiver verified no other encounters exist for this prescription request: Yes Caregiver confirmed with patient/requestor that no other refills are due, in the near future, with this provider at this time: Yes The last office visit in the department: 07/11/24 Does the patient have a future office visit with this provider/department: Yes 01/11/25 Requested Prescriptions Pending Prescriptions Disp Refills Omeprazole Magnesium (PRILOSEC OTC) 20 mg tablet 120 tablet 0 Sig: Take 1 tablet by mouth two times a day. citalopram (CELEXA) 40 mg tablet 30 tablet 11 Sig: Take 1 tablet by mouth once daily. gabapentin (NEURONTIN) 300 mg capsule 270 capsule 3 Sig: Take 1 capsule by mouth three times a day. Caron Quezada August 04, 2024 3:20 PM [facility] 07-26-2024 Telephone encounter Note Patient calling to set up appt for her CT. Assisted with transfer to production planner scheduler to get CT Kidney appt set up. [facility] 07-26-2024 Miscellaneous Notes Patient calling to set up appt for her CT. Assisted with transfer to production planner scheduler to get CT Kidney appt set up. PSS could you please contact to help set up CT scan ordered for patient. Thank you! placed Patient returns call and reports that she would be ok with doing a CT scan instead. Lorene Nguyen RN Left message for patient to call office. We could do a ct instead, would that work? Left vm for pt to return call to nurse for provider's message. Patient returned call and given provider's message below. Patient agreeable to labs in 2 weeks. Patient states she needs to think about the kidney MRI, as she is claustrophobic and knows she would have a panic attack. She states she is not comfortable with trying a sedative before the MRI. This nurse discussed possible option of an Open MRI, if this is something that could be done. Pt states she will call back in a couple days with her response. Jossy Singletary RN Liver us shows fatty liver. Avoid any etoh and excess tylenol. Recheck labs in two weeks. Shows lump on the right kidney. Looks like they saw it on scan in 2022 at [facility] and thought it was a benign fatty lump. The us is not the best test but appears larger on discussion. Recommend scan of kidney. documented in this encounter [facility] 07-26-2024 Telephone encounter Note PSS could you please contact to help set up CT scan ordered for patient. Thank you! [facility] 07-26-2024 Telephone encounter Note placed [facility] 07-26-2024 Telephone encounter Note Patient returns call and reports that she would be ok with doing a CT scan instead. Lorene Nguyen RN [facility] 07-26-2024 Telephone encounter Note Patient calls and notified of results and providers instructions. Patient verbalizes understanding. Lorene Nguyen RN [facility] 07-26-2024 Miscellaneous Notes Patient calls and notified of results and providers instructions. Patient verbalizes understanding. Lorene Nguyen RN Left message for patient to return call. Gloria Aguilar MA Urine culture reveals mixed bacteria, this can occur as a result of skin contaminants. Can complete Keflex if symptoms are improving. Follow up with PCP for continued symptoms. Please advise patient documented in this encounter [facility] 07-26-2024 Telephone encounter Note Left message for patient to return call. Gloria Aguilar MA [facility] 07-26-2024 Telephone encounter Note Left message for patient to call office. [facility] 07-26-2024 Telephone encounter Note Urine culture reveals mixed bacteria, this can occur as a result of skin contaminants. Can complete Keflex if symptoms are improving. Follow up with PCP for continued symptoms. Please advise patient [facility] Work Phone: 07-25-2024 Telephone encounter Note We could do a ct instead, would that work? [facility] 07-25-2024 Telephone encounter Note Left vm for pt to return call to nurse for provider's message. [facility] 07-25-2024 Telephone encounter Note Patient returned call and given provider's message below. Patient agreeable to labs in 2 weeks. Patient states she needs to think about the kidney MRI, as she is claustrophobic and knows she would have a panic attack. She states she is not comfortable with trying a sedative before the MRI. This nurse discussed possible option of an Open MRI, if this is something that could be done. Pt states she will call back in a couple days with her response. Jossy Singletary RN [facility] 07-25-2024 Telephone encounter Note Liver us shows fatty liver. Avoid any etoh and excess tylenol. Recheck labs in two weeks. Shows lump on the right kidney. Looks like they saw it on scan in 2022 at [facility] and thought it was a benign fatty lump. The us is not the best test but appears larger on discussion. Recommend scan of kidney. [facility] 07-24-2024 Note HNO ID: [id number] Author: ITA YARBROUGH PA-C Service: ? Author Type: Physician Cluster Bore Operator Type: Progress Notes Filed: 07/24/2024 18:34 Note Text: This note was created using [employer]. Subjective Dolores Barnhart is a 63 year old female. Patient is a 63-year-old female who complains of dysuria, urinary urgency and frequency that she states started earlier today. Patient denies fever, chills, hematuria, flank pain, nausea or other symptoms. Patient does have a history of urinary tract infection and states that her current symptoms are consistent with same. Review of Systems Genitourinary: Positive for dysuria, frequency and urgency. All other systems reviewed and are negative. Objective BP 128/84 (BP Site: Left Arm, BP Position: Sitting, BP Cuff Size: Regular Adult) Pulse 84 Temp 37.9 ?C (100.2 ?F) (Tympanic) Resp 18 Wt 80.7 kg (177 lb 14.6 oz) LMP 09/13/2006 SpO2 97% BMI 29.01 kg/m? Physical Exam Vitals and nursing note reviewed. Constitutional: Appearance: Normal appearance. She is normal weight. HENT: Head: Normocephalic and atraumatic. Right Ear: External ear normal. Left Ear: External ear normal. Nose: Nose normal. Mouth/Throat: Mouth: Mucous membranes are moist. Pharynx: Oropharynx is clear. Eyes: Extraocular Movements: Extraocular movements intact. Conjunctiva/sclera: Conjunctivae normal. Pupils: Pupils are equal, round, and reactive to light. Cardiovascular: Rate and Rhythm: Normal rate. Pulses: Normal pulses. Heart sounds: Normal heart sounds. Pulmonary: Effort: Pulmonary effort is normal. Breath sounds: Normal breath sounds. Abdominal: General: Abdomen is flat. Palpations: Abdomen is soft. Musculoskeletal: Cervical back: Normal range of motion and neck supple. Skin: General: Skin is warm and dry. Capillary Refill: Capillary refill takes less than 2 seconds. Neurological: General: No focal deficit present. Mental Status: She is alert and oriented to person, place, and time. Psychiatric: Mood and Affect: Mood normal. Behavior: Behavior normal. Thought Content: Thought content normal. Judgment: Judgment normal. Assessment and Plan Physical exam findings as noted above. Urinalysis is positive for leukocyte esterase and urine culture was ordered. Patient was provided with prescription for Keflex 500 mg and advised that results of urine culture be available in 2 days. Patient was informed that she will be contacted if there is a need to change her medication based on the sensitivity report. Patient verbalizes excellent understanding of the above instructions. CLINICAL IMPRESSION: Acute UTI ASSESSMENT/PLAN: 1. Pain with urination - ICD9: 788.1, ICD10: R30.9 (primary diagnosis) - UA DIP, URINE (POC) 2. Acute UTI - ICD9: 599.0, ICD10: N39.0 - CEPHALEXIN 500 MG CAPSULE - BACTERIAL CULTURE, URINE MDM Amount and/or Complexity of Data Reviewed Clinical lab tests: ordered and reviewed Risk of Complications, Morbidity, and/or Mortality Presenting problems: low Diagnostic procedures: low Management options: michelle Yarbrough PA-C [facility] 07-24-2024 History of Presen t illness Narrative This note was created using [employer]. Subjective Dolores Barnhart is a 63 year old female. Patient is a 63-year-old female who complains of dysuria, urinary urgency and frequency that she states started earlier today. Patient denies fever, chills, hematuria, flank pain, nausea or other symptoms. Patient does have a history of urinary tract infection and states that her current symptoms are consistent with same. Review of Systems Genitourinary: Positive for dysuria, frequency and urgency. All other systems reviewed and are negative. Objective BP 128/84 (BP Site: Left Arm, BP Position: Sitting, BP Cuff Size: Regular Adult) Pulse 84 Temp 37.9 C (100.2 F) (Tympanic) Resp 18 Wt 80.7 kg (177 lb 14.6 oz) LMP 09/13/2006 SpO2 97% BMI 29.01 kg/m Physical Exam Vitals and nursing note reviewed. Constitutional: Appearance: Normal appearance. She is normal weight. HENT: Head: Normocephalic and atraumatic. Right Ear: External ear normal. Left Ear: External ear normal. Nose: Nose normal. Mouth/Throat: Mouth: Mucous membranes are moist. Pharynx: Oropharynx is clear. Eyes: Extraocular Movements: Extraocular movements intact. Conjunctiva/sclera: Conjunctivae normal. Pupils: Pupils are equal, round, and reactive to light. Cardiovascular: Rate and Rhythm: Normal rate. Pulses: Normal pulses. Heart sounds: Normal heart sounds. Pulmonary: Effort: Pulmonary effort is normal. Breath sounds: Normal breath sounds. Abdominal: General: Abdomen is flat. Palpations: Abdomen is soft. Musculoskeletal: Cervical back: Normal range of motion and neck supple. Skin: General: Skin is warm and dry. Capillary Refill: Capillary refill takes less than 2 seconds. Neurological: General: No focal deficit present. Mental Status: She is alert and oriented to person, place, and time. Psychiatric: Mood and Affect: Mood normal. Behavior: Behavior normal. Thought Content: Thought content normal. Judgment: Judgment normal. Assessment and Plan Physical exam findings as noted above. Urinalysis is positive for leukocyte esterase and urine culture was ordered. Patient was provided with prescription for Keflex 500 mg and advised that results of urine culture be available in 2 days. Patient was informed that she will be contacted if there is a need to change her medication based on the sensitivity report. Patient verbalizes excellent understanding of the above instructions. CLINICAL IMPRESSION: Acute UTI ASSESSMENT/PLAN: 1. Pain with urination - ICD9: 788.1, ICD10: R30.9 (primary diagnosis) - UA DIP, URINE (POC) 2. Acute UTI - ICD9: 599.0, ICD10: N39.0 - CEPHALEXIN 500 MG CAPSULE - BACTERIAL CULTURE, URINE MDM Amount and/or Complexity of Data Reviewed Clinical lab tests: ordered and reviewed Risk of Complications, Morbidity, and/or Mortality Presenting problems: low Diagnostic procedures: low Management options: low Ita Yarbrough PA-C documented in this encounter [facility] 07-24-2024 History of Presen t illness Narrative Radiology Service Progress Note PATIENT NAME: Dolores Barnhart DATE OF SERVICE: July 24, 2024 TIME: 4:13 PM PATIENT IDENTITY VERIFICATION COMPLETED USING TWO (2) IDENTIFIERS: Name and Date of confirmed by patient verbally. FALL SCREENING: Has the patient had 2 falls in the last year or 1 fall with injury or currently using an Ambulatory Assistive Device (Walker, Cane, Wheelchair, Crutches, etc.)? No PATIENT GENDER DATA: Assigned female at . status: : No status: NO. PATIENT RELEVANT IMPLANT DATA REVIEWED: Not Applicable PATIENT PRESENTS WITH AN IMPLANTABLE OR ATTACHED GRAIN MIXER: No RADIOLOGY DEPARTMENT: Ultrasound PERIPHERAL IV DATA: Not applicable SIGNED BY: Elizabeth Everett RDMS July 24, 2024 4:13 PM documented in this encounter [facility] 07-24-2024 Note HNO ID: [id number] Author: ELIZABETH EVERETT RDMS Service: ? Author Type: Service Shop Foreman Type: Progress Notes Filed: 07/24/2024 16:13 Note Text: Radiology Service Progress Note PATIENT NAME: Dolores Barnhart DATE OF SERVICE: July 24, 2024 TIME: 4:13 PM PATIENT IDENTITY VERIFICATION COMPLETED USING TWO (2) IDENTIFIERS: Name and Date of confirmed by patient verbally. FALL SCREENING: Has the patient had 2 falls in the last year or 1 fall with injury or currently using an Ambulatory Assistive Device (Walker, Cane, Wheelchair, Crutches, etc.)? No PATIENT GENDER DATA: Assigned female at . status: : No status: NO. PATIENT RELEVANT IMPLANT DATA REVIEWED: Not Applicable PATIENT PRESENTS WITH AN IMPLANTABLE OR ATTACHED GRAIN MIXER: No RADIOLOGY DEPARTMENT: Ultrasound PERIPHERAL IV DATA: Not applicable SIGNED BY: Elizabeth Everett RDMS July 24, 2024 4:13 PM [facility] 07-14-2024 Telephone encounter Note PATIENT NOTIFIED OF INFORMATION transferred to scheduling [facility] 07-14-2024 Miscellaneous Notes PATIENT NOTIFIED OF INFORMATION transferred to scheduling Left message for patient to call and speak with nurse or to check her MyChart. Your LDL, bad cholesterol is high. 134. Watch the saturated fats in your diet by eliminating fried foods and choosing only lean meat/skim dairy products. Your HDL, good cholesterol, is a little low. Try to add into your diet whole grains, purple grape juice, nuts or peanut butter, and soy. That will raise your protection against heart disease. B12 is low at 285. Please continue [id number] vitamin B-12 1000 mcg daily. You are deficient. Liver functions are elevated further. I will order an ultrasound of the liver. Please avoid excessive use of sklh-ziq-xcvujlf products that contain ibuprofen, acetaminophen, naproxen, and alcohol. Kidney function remains slightly weak. Remember to drink 64 ounces of water daily to flush your kidneys. All other labs are okay. documented in this encounter [facility] 07-14-2024 Telephone encounter Note Left message for patient to call and speak with nurse or to check her MyChart. [facility] 07-13-2024 Progress note Formatting of t his note might be different from the original. Your LDL, bad cholesterol is high. 134. Watch the saturated fats in your diet by eliminating fried foods and choosing only lean meat/skim dairy products. Your HDL, good cholesterol, is a little low. Try to add into your diet whole grains, purple grape juice, nuts or peanut butter, and soy. That will raise your protection against heart disease. B12 is low at 285. Please continue mjxs-rwz-[id number] vitamin B-12 1000 mcg daily. You are deficient. Liver functions are elevated further. I will order an ultrasound of the liver. Please avoid excessive use of pbyp-nmn-radhhyn products that contain ibuprofen, acetaminophen, naproxen, and alcohol. Kidney function remains slightly weak. Remember to drink 64 ounces of water daily to flush your kidneys. All other labs are okay. [facility] 07-11-2024 Instructions Lilian Srivastava APRN.CNP - 07/11/2024 3:40 PM EDT 1) Check labs today 2) Tizanidine 4 mg 2 x day as needed for neck spasm- may make you sleepy 3) Follow up in 6 months documented in this encounter [facility] 07-11-2024 Note HNO ID: [id number] Author: LILIAN SRIVASTAVA APRN.CNP Service: ? Author Type: Nurse Practitioner Type: Progress Notes Filed: 07/11/2024 15:41 Note Text: Chief Reason For Appointment No chief complaint on file. Dolores Barnhart is a 63 year old female who presents for annual exam. Last office visit date: 06/21/2023 Accompanied By self only Have you had any critical events, hospital stays, ER visits, surgeries or procedures since your last visit here in our office: No Specialists/Other Healthcare Providers Seen: Patient Care Team: Chaparrita Newman APRN.BANQUET DIRECTOR as Wetlands Technician (Family Medicine) Lilian Srivastava APRN.CNP as Wetlands Technician (Family Medicine) Concerns today: Grief. Lost Mom, younger sister, and 2 uncles. Good support. HPI Eating ok. Sleeping affected. Tearful often as states. Trazodone gave her hallucinations. Active Problems ACTIVE PROBLEM LIST Palpitations - 11/27/2021 Comment: 11/26/2021 presented to [facility] emergency department feeling of palpitations over the [...] had not yet scheduled follow-up with urology. Aortic Disorder - 05/10/2021 Comment: 09/16/21 Mild scattered aortoiliac atherosclerotic calcifications with diffuse thickening of the wall of the abdominal aorta and proximal common iliac arteries concerning for arteritis such as giant cell arteritis. Consult to vascular surgery placed. Atrophy of Left Kidney - 01/19/2018 Comment: 01/17/18 CT abdomen severe chronic left renal atrophy with moderate right hydronephrosis, proximal ureter dilated Chronic Progressive Renal Failure, Stage 3 (Moderate) (Formerly [facility]) - 09/06/2017 Comment: RENAL FLOWSHEET Latest Ref Rng AND Units 07/28/2012 06/04/2015 03/31/2017 CREATININE 0.58 - 0.96 mg/dL 0.93 1.00 1.52 (H) 07/05/10 CT retroperitoneal fibrosis with obstructive uropathy left kidny 09/16/15 CT demonstrated cortical atrophy l kidney Rls (Restless Legs Syndrome) - 09/06/2017 Comment: September 06, 2017 Hx of HANNAH: needs recheck Abnormal CT of The Abdomen - 10/10/2015 Comment: 10/16/09 inflammation cecum and ascending colon consistent [...] fat, atrophy of left kidney, borderline spleen, Diverticulitis of Large Intestine Without Perforation Or Abscess Without Bleeding - 10/10/2015 Comment: CT abd/ pel 05/28/15 treated in ED [facility]. Has f/u with Dr. Arthur for EGD and colonoscopy but cancelled and did not follow up. 03/05/[address] [facility] CT abd/pev WO: distal descending focal inflammatory/ diverticulitis; borderline hepatosplenomegaly, atrophic left kidney Anxiety Neurosis - 09/19/2015 Comment: September 06, 2017 Treated in the past with Ativan, Klonopin both with improvement over many years. Previous trials with amitriptyline, buspirone, bupropion, paroxetine were unhelpful. Myofascial Pain - 10/16/2013 Comment: 10/16/[address] Arsalan Salinas pain management. Neck Pain, Chronic - 01/18/2013 Comment: 10/07/13 cervical XR:Moderate disc space narrowing C5-6 straightening of the normal lordotic curve of the spine is seen. There may be mild anterior positioning of the C4 vertebral body on C5 in flexion 10/16/13: pain management referral Arsalan Salinas: Recommend conser (more content not included)... [facility] 07-11-2024 History of Presen t illness Narrative Chief Reason For Appointment No chief complaint on file. Dolores Barnhart is a 63 year old female who presents for annual exam. Last office visit date: 06/21/2023 Accompanied By self only Have you had any critical events, hospital stays, ER visits, surgeries or procedures since your last visit here in our office: No Specialists/Other Healthcare Providers Seen: Patient Care Team: Chaparrita Newman APRN.CNP as Wetlands Technician (Family Medicine) Lilian Srivastava APRN.CNP as Wetlands Technician (Family Medicine) Concerns today: Grief. Lost Mom, younger sister, and 2 uncles. Good support. HPI Eating ok. Sleeping affected. Tearful often as states. Trazodone gave her hallucinations. Active Problems ACTIVE PROBLEM LIST Palpitations - 11/27/2021 Comment: 11/26/2021 presented to [facility] emergency department feeling of palpitations over the [...] had not yet scheduled follow-up with urology. Aortic Disorder - 05/10/2021 Comment: 09/16/21 Mild scattered aortoiliac atherosclerotic calcifications with diffuse thickening of the wall of the abdominal aorta and proximal common iliac arteries concerning for arteritis such as giant cell arteritis. Consult to vascular surgery placed. Atrophy of Left Kidney - 01/19/2018 Comment: 01/17/18 CT abdomen severe chronic left renal atrophy with moderate right hydronephrosis, proximal ureter dilated Chronic Progressive Renal Failure, Stage 3 (Moderate) (Hcc) - 09/06/2017 Comment: RENAL FLOWSHEET Latest Ref Rng & Units 07/28/2012 06/04/2015 03/31/2017 CREATININE 0.58 - 0.96 mg/dL 0.93 1.00 1.52 (H) 07/05/10 CT retroperitoneal fibrosis with obstructive uropathy left kidny 09/16/15 CT demonstrated cortical atrophy l kidney Rls (Restless Legs Syndrome) - 09/06/2017 Comment: September 06, 2017 Hx of HANNAH: needs recheck Abnormal CT of The Abdomen - 10/10/2015 Comment: 10/16/09 inflammation cecum and ascending colon consistent [...] fat, atrophy of left kidney, borderline spleen, Diverticulitis of Large Intestine Without Perforation Or Abscess Without Bleeding - 10/10/2015 Comment: CT abd/ pel 05/28/15 treated in ED [facility]. Has f/u with Dr. Arthur for EGD and colonoscopy but cancelled and did not follow up. 03/05/[address] [facility] CT abd/pev WO: distal descending focal inflammatory/ diverticulitis; borderline hepatosplenomegaly, atrophic left kidney Anxiety Neurosis - 09/19/2015 Comment: September 06, 2017 Treated in the past with Ativan, Klonopin both with improvement over many years. Previous trials with amitriptyline, buspirone, bupropion, paroxetine were unhelpful. Myofascial Pain - 10/16/2013 Comment: 10/16/[address] Arsalan Salinas pain management. Neck Pain, Chronic - 01/18/2013 Comment: 10/07/13 cervical XR:Moderate disc space narrowing C5-6 straightening of the normal lordotic curve of the spine is seen. There may be mild anterior positioning of the C4 vertebral body on C5 in flexion 10/16/13: pain management referral Arsalan Salinas: Recommend conservative course.She has failed prior PT dating back several years.Recommend trial of PT again.Will add a short course of muscle relaxant and NSAID. Consider TENS unit. Iron Deficiency Anemia - 07/29/2012 Comment: Refuses gi evaluation. Retroperitoneal Fibrosis - 08/07/2010 Comment: 08/11/10 consult Vitaliy Cruz Md based on CT findings (see above [address] Scheduled MRU, CT urogram without follow through, missed appointments and cancelled surgery. Adjustment Disorder With Depressed Mood - 12/01/2007 Comment: September 06, 2017 Treated in the past with Ativan, Klonopin both with improvement over many years. Previous trials with amitriptyline, buspirone, bupropion, paroxetine were unhelpful. Esophageal Reflux - 12/22/2006 Comment: Controlled on omeprazole with minimal breakthrough. 2016 failed to complete scheduled EGD. + H. Pylori testing. Positive Helicobacter Pylori Test Comment: H PYLORI ROS: REVIEW OF SYSTEMS GENERAL: No weight loss- some gain, + malaise- not sleeping well, no fevers/chills- some hot flashes HEENT: Negative for frequent or significant headaches, No changes in hearing, cataract in right eye affecting vision. Ears congested. NECK: Negative for lumps, goiter, pain and significant neck swelling RESPIRATORY: Negative for cough, hemoptysis, wheezing, dyspnea or shortness of breath CARDIOVASCULAR: Negative for chest pain, leg swelling, orthopnea, or palpitations GI: No nausea, vomiting, or diarrhea/constipation. No hematochezia/melena. Occ. heartburn or reflux symptoms. : No history of dysuria, frequency or incontinence MUSCULOSKELETAL: Positive for joint pain due to chronic neck pain and scoliosis SKIN: Negative for lesions, rash, and itching ENDOCRINE: Negative for cold or heat intolerance, polyuria, polydipsia and goiter NEURO: No history of headaches, syncope, paralysis, seizures or tremors MOOD: Negative for depression, anxiety, or suicidal ideation. PAST MEDICAL HISTORY Diagnosis Date Abnormal CT [...] CT abd/ pel 05/28/15 treated in ED [facility]. Has f/u with Dr. Arthur for EGD [...] HISTORY Procedure Laterality Date CHOLECYSTECTOMY 1995 Cholecystectomy Medication List Current Outpatient Medications Medication Sig Dispense Refill citalopram (CELEXA) 40 mg tablet Take 1 tablet by mouth once daily. 30 tablet 11 gabapentin (NEURONTIN) 300 mg capsule Take 1 capsule by mouth three times a day for 30 days. 90 capsule 0 Omeprazole Magnesium (PRILOSEC OTC) 20 mg tablet Take 1 tablet by mouth two times a day. 30 tablet 0 busPIRone (BUSPAR) 5 mg tablet Take 5 mg by mouth three times a day. traZODone (DESYREL) 50 mg tablet Take 1 tablet by mouth daily at bedtime. 30 tablet 2 ferrous gluconate 324 mg (37.5 mg iron) tablet Take 1 tablet by mouth daily with breakfast. 30 tablet 5 cyanocobalamin (VITAMIN B-12) 1,000 mcg tab Take 1 tablet by mouth once daily. 90 tablet 3 No current facility-administered medications for this visit. Weight Summary: Weight Change: Body mass index is 29.02 kg/m . Last Wt 07/11/24 : 80.7 kg (178 lb) 06/01/24 : 82 kg (180 lb 12.4 oz) 06/21/23 : 73.5 kg (162 lb) 05/10/23 : 70.8 kg (156 lb) 04/27/23 : 70.8 kg (156 lb) Physical Exam: General Appearance: well appearing, alert and oriented. Skin: no suspicious lesion, no rash, no open sores Head: normocephalic, no obvious masses, lesions, tenderness or abnormalities. Eyes: Anicteric sclera. Pupils are equally round. Ears: external ears normal, canals clear, TM's bulging with clear fluid. Hearing to conversational voice intact. Nose/Sinuses: nares normal- slightly red, septum midline, mucosa normal, no drainage or sinus tenderness. Oropharynx: lips, mucosa, and tongue normal, oropharynx normal. Neck: trachea midline, thyroid without mass or nodularity, thyroid moves normally with swallow, no regional lymphadenopathy. Carotids normal upstroke, no bruit or thrill. Lungs: Chest rise & fall symmetrical, Lungs clear to auscultation. No wheezing or rhonchi. No rales. Abdomen: normal bowel sounds, no mass, non-tender Heart: S1S2, no gallop, no rub, no murmur Lymph Nodes: no lymphadenopathy. Ext: no clubbing, cyanosis or edema. Mood: bright affect, speech clear, answers questions appropriately SCREENINGS Health Maintenance Listing Depression Screening Cervical Cancer Screening Mammogram Screening Colorectal Cancer Screening Shingrix Vaccine(2 of 2) Serum Creatinine Hemoglobin/Hematocrit TEST RESULTS: Lab Studies: Date of lab studies: check labs - glucose - potassium - Creatinine, gfr - LFTs Lipid: WBC, H&H, Platelets: A1C: Vitamin D: Other: A/P: ASSESSMENT/PLAN: 1. Neck pain, chronic - ICD9: 723.1, 338.29, ICD10: M54.2, G89.29 (primary diagnosis) [place] tizanidine for flares - GABAPENTIN 300 MG CAPSULE - COMPLETE BLOOD COUNT AND DIFFERENTIAL - COMPREHENSIVE METABOLIC PANEL - TIZANIDINE 4 MG TABLET 2. Gastroesophageal reflux disease, unspecified whether esophagitis present - ICD9: 530.81, ICD10: K21.9 - Stable - OMEPRAZOLE MAGNESIUM 20 MG TABLET,DELAYED RELEASE - VITAMIN B12 3. Myofascial pain - ICD9: 729.1, ICD10: M79.18 Ongoing - GABAPENTIN 300 MG CAPSULE - COMPLETE BLOOD COUNT AND DIFFERENTIAL - COMPREHENSIVE METABOLIC PANEL - TIZANIDINE 4 MG TABLET 4. RLS (restless legs syndrome) - ICD9: 333.94, ICD10: G25.81 Stable on gabapentin 5. Adjustment disorder with depressed mood - ICD9: 309.0, ICD10: F43.21 Ongoing, stable but grieving, good support system - BUSPIRONE 5 MG TABLET - COMPLETE BLOOD COUNT AND DIFFERENTIAL 6. Screening for depression - ICD9: V79.0, ICD10: Z13.31 Ongoing- grieving - DEPRESSION SCREENING 7. Stage 3a chronic kidney disease (HCC) - ICD9: 585.3, ICD10: N18.31 - eGFR: Worsening - Counseled on avoiding NSAIDs, adequate hydration - COMPREHENSIVE METABOLIC PANEL - MAGNESIUM - VITAMIN B12 8. Heart failure with preserved ejection fraction, unspecified HF chronicity (HCC) - ICD9: 428.9, ICD10: I50.30 - HFpEF 50+ - Continue current medications - Encouraged sodium restriction - THYROID STIMULATING HORMONE - VITAMIN B12 - LIPID PANEL, NONFASTING 9. Screening for diabetes mellitus - ICD9: V77.1, ICD10: Z13.1 Check labs - HEMOGLOBIN A1C 10. Screening for cervical cancer - ICD9: V76.2, ICD10: Z12.4 Declined Discussed treatment plan and patient voices understanding. Patient's questions answered appropriately. Medications and potential side effects were discussed and patient voices understanding. Return to the office as scheduled or as needed for worsening/no improvement. Lilian Srivastava APRN.BANQUET DIRECTOR Follow Up Plans: 6 months documented in this encounter [facility] 07-07-2024 Telephone encounter Note Pt called and is notified of providers message. Pt voices understanding. Pt moved to 07/11/24 at 320 for 40 min with Lyndsya Srivastava NP. Teri Chavez RN [facility] 07-07-2024 Miscellaneous Notes Pt called and is notified of providers message. Pt voices understanding. Pt moved to 07/11/24 at 320 for 40 min with Lyndsay Srivastava DISTANCE EDUCATION COORDINATOR. Teri Chavez RN Called patient and left a message. Asked her to call back so that we could fix her appt on 07/10/24 she is scheduled for 20 min and needs a 40 in transfer of care (physical) appt. (Looks like call center moved the original scheduled visit and didn't fix allotted time to 40 min.) documented in this encounter [facility] 07-07-2024 Telephone encounter Note Called patient and left a message. Asked her to call back so that we could fix her appt on 07/10/24 she is scheduled for 20 min and needs a 40 in transfer of care (physical) appt. (Looks like call center moved the original scheduled visit and didn't fix allotted time to 40 min.) [facility] 07-06-2024 Telephone encounter Note The following approved medication requests have been transmitted electronically. Requested Prescriptions Pending Prescriptions Disp Refills citalopram (CELEXA) 40 mg tablet 30 tablet 11 Sig: Take 1 tablet by mouth once daily. Lilian Srivastava APRN.CNP [facility] 07-06-2024 Miscellaneous Notes The following approved medication requests have been transmitted electronically. Requested Prescriptions Pending Prescriptions Disp Refills citalopram (CELEXA) 40 mg tablet 30 tablet 11 Sig: Take 1 tablet by mouth once daily. Lilian Srivastava APRN.CNP Prescription Refill Information The patient has been identified by name and date of : Yes Caregiver verified no other encounters exist for this prescription request: Yes Caregiver confirmed with patient/requestor that no other refills are due, in the near future, with this provider at this time: Yes The last office visit in the department:06/21/23 Does the patient have a future office visit with this provider/department: Yes Requested Prescriptions Pending Prescriptions Disp Refills citalopram (CELEXA) 40 mg tablet 30 tablet 11 Sig: Take 1 tablet by mouth once daily. Analilia Ferrer July 05, 2024 2:52 PM documented in this encounter [facility] 07-05-2024 Telephone encounter Note Prescription Refill Information The patient has been identified by name and date of : Yes Caregiver verified no other encounters exist for this prescription request: Yes Caregiver confirmed with patient/requestor that no other refills are due, in the near future, with this provider at this time: Yes The last office visit in the department:06/21/23 Does the patient have a future office visit with this provider/department: Yes Requested Prescriptions Pending Prescriptions Disp Refills citalopram (CELEXA) 40 mg tablet 30 tablet 11 Sig: Take 1 tablet by mouth once daily. Analilia Sebastian [facility] July 05, 2024 2:52 PM [facility] 06-21-2024 Telephone encounter Note Prescription Refill Information The patient has been identified by name and date of : Yes Caregiver verified no other encounters exist for this prescription request: Yes Caregiver confirmed with patient/requestor that no other refills are due, in the near future, with this provider at this time: Yes The last office visit in the department: 06/21/23 Does the patient have a future office visit with this provider/department: yes called patient and got a visit scheduled Requested Prescriptions Pending Prescriptions Disp Refills gabapentin (NEURONTIN) 300 mg capsule 270 capsule 1 Sig: Take 1 capsule by mouth three times a day for 90 days. Omeprazole Magnesium (PRILOSEC OTC) 20 mg tablet 180 tablet 1 Sig: Take 1 tablet by mouth two times a day. Analilia Sebastian [facility] June 21, 2024 2:24 PM [facility] 06-21-2024 Miscellaneous Notes Prescription Refill Information The patient has been identified by name and date of : Yes Caregiver verified no other encounters exist for this prescription request: Yes Caregiver confirmed with patient/requestor that no other refills are due, in the near future, with this provider at this time: Yes The last office visit in the department: 06/21/23 Does the patient have a future office visit with this provider/department: yes called patient and got a visit scheduled Requested Prescriptions Pending Prescriptions Disp Refills gabapentin (NEURONTIN) 300 mg capsule 270 capsule 1 Sig: Take 1 capsule by mouth three times a day for 90 days. Omeprazole Magnesium (PRILOSEC OTC) 20 mg tablet 180 tablet 1 Sig: Take 1 tablet by mouth two times a day. Analilia Ferrer June 21, 2024 2:24 PM documented in this encounter [facility] 06-01-2024 Note HNO ID: [id number] Author: KEVEN LAWRENCE APRN.BANQUET DIRECTOR Service: ? Author Type: Nurse Practitioner Type: Progress Notes Filed: 06/01/2024 17:05 Note Text: [facility] Subjective Dolores Barnhart is a 63 year old female. Nontoxic. 63-year-old female presents urgent care chief complaint sinus pressure cough. Duration of symptoms on and off for 1 month. States has been dealing with this over the past 3 to 4 weeks. Has worsened over the last week. OTC medications with no success. Denies any chest pain shortness of breath or hemoptysis. No pleuritic pain. Past medical history prescription medications allergies reviewed. .Patient presents with: Nasal Congestion: Sinus congestion, headache, ear pain clogged, bilat, sneezing, pressure and pain x 1 month PAST MEDICAL HISTORY Diagnosis Date Abnormal CT [...] in the left kidney in addition to continuedrectosigmoid junctional narrowing with recommendation for colonoscopy 11/06/15 [...] CT abd/ pel 05/28/15 treated in ED [facility]. Has f/u with Dr. Arthur for EGD [...] Prevacid [Lansoprazole], and Prozac [Fluoxetine Hcl] MEDICATIONS busPIRone (BUSPAR) 5 mg tablet Take 5 mg by mouth three times a day. Omeprazole Magnesium (PRILOSEC OTC) 20 mg tablet Take 1 tablet by mouth two times a day. gabapentin (NEURONTIN) 300 mg capsule Take 1 capsule by mouth three times a day for 90 days. citalopram (CELEXA) 40 mg tablet Take 1 tablet by mouth once daily. traZODone (DESYREL) 50 mg tablet Take 1 tablet by mouth daily at bedtime. (Patient not taking: Reported on 06/01/2024) ferrous gluconate 324 mg (37.5 mg iron) tablet Take 1 tablet by mouth daily with breakfast. (Patient not taking: Reported on 06/01/2024) cyanocobalamin (VITAMIN B-12) 1,000 mcg tab Take 1 tablet by mouth once daily. (Patient not taking: Reported on 06/01/2024) FAMILY HISTORY Problem Relation Age of Onset Diabetes Father Cervical Cancer Paternal Grandmother Stroke Paternal Grandfather Psychiatry Mother Heart Father Hypertension Father Social History Tobacco Use Smoking status: Former Current packs/day: 0.00 Types: Cigarettes Start date: 06/27/1989 Quit date: 06/27/2014 Years since quittin.9 Smokeless tobacco: Never Substance Use Topics Alcohol use: No Drug use: No Patient presents with: Nasal Congestion: Sinus congestion, headache, ear pa (more content not included)... [facility] 06-01-2024 History of Presen t illness Narrative [facility] Subjective Dolores Barnhart is a 63 year old female. Nontoxic. 63-year-old female presents urgent care chief complaint sinus pressure cough. Duration of symptoms on and off for 1 month. States has been dealing with this over the past 3 to 4 weeks. Has worsened over the last week. OTC medications with no success. Denies any chest pain shortness of breath or hemoptysis. No pleuritic pain. Past medical history prescription medications allergies reviewed. .Patient presents with: Nasal Congestion: Sinus congestion, headache, ear pain clogged, bilat, sneezing, pressure and pain x 1 month PAST MEDICAL HISTORY Diagnosis Date Abnormal CT [...] CT abd/ pel 05/28/15 treated in ED [facility]. Has f/u with Dr. Arthur for EGD [...] Prevacid [Lansoprazole], and Prozac [Fluoxetine Hcl] MEDICATIONS busPIRone (BUSPAR) 5 mg tablet Take 5 mg by mouth three times a day. Omeprazole Magnesium (PRILOSEC OTC) 20 mg tablet Take 1 tablet by mouth two times a day. gabapentin (NEURONTIN) 300 mg capsule Take 1 capsule by mouth three times a day for 90 days. citalopram (CELEXA) 40 mg tablet Take 1 tablet by mouth once daily. traZODone (DESYREL) 50 mg tablet Take 1 tablet by mouth daily at bedtime. (Patient not taking: Reported on 06/01/2024) ferrous gluconate 324 mg (37.5 mg iron) tablet Take 1 tablet by mouth daily with breakfast. (Patient not taking: Reported on 06/01/2024) cyanocobalamin (VITAMIN B-12) 1,000 mcg tab Take 1 tablet by mouth once daily. (Patient not taking: Reported on 06/01/2024) FAMILY HISTORY Problem Relation Age of Onset Diabetes Father Cervical Cancer Paternal Grandmother Stroke Paternal Grandfather Psychiatry Mother Heart Father Hypertension Father Social History Tobacco Use Smoking status: Former Current packs/day: 0.00 Types: Cigarettes Start date: 06/27/1989 Quit date: 06/27/2014 Years since quittin.9 Smokeless tobacco: Never Substance Use Topics Alcohol use: No Drug use: No Patient presents with: Nasal Congestion: Sinus congestion, headache, ear pain clogged, bilat, sneezing, pressure and pain x 1 month HPI Review of Systems Constitutional: Negative for chills, diaphoresis, fatigue and fever. HENT: Positive for sinus pressure, sinus pain and sneezing. Negative for congestion, drooling, ear discharge, ear pain, rhinorrhea, sore throat and trouble swallowing. Eyes: Negative for pain, discharge, redness, itching and visual disturbance. Respiratory: Positive for cough. Negative for chest tightness, shortness of breath and wheezing. Cardiovascular: Negative for chest pain. Gastrointestinal: Negative for abdominal distention, abdominal pain, blood in stool, constipation, diarrhea, nausea and vomiting. Genitourinary: Negative for difficulty urinating and dysuria. Musculoskeletal: Negative for arthralgias, joint swelling, neck pain and neck stiffness. Skin: Negative for rash. Neurological: Positive for headaches. Negative for dizziness, weakness and numbness. Objective BP 154/93 Pulse 87 Temp 37.1 C (98.8 F) Resp 20 Wt 82 kg (180 lb 12.4 oz) LMP 09/13/2006 SpO2 96% BMI 29.47 kg/m Physical Exam Constitutional: Appearance: Normal appearance. HENT: Head: Normocephalic. Jaw: No trismus, tenderness, swelling or pain on movement. Right Ear: Tympanic membrane, ear canal and external ear normal. Left Ear: Tympanic membrane, ear canal and external ear normal. Nose: No congestion. Right Sinus: Maxillary sinus tenderness present. Left Sinus: Maxillary sinus tenderness present. Mouth/Throat: Mouth: Mucous membranes are moist. Pharynx: Oropharynx is clear. Uvula midline. No oropharyngeal exudate or posterior oropharyngeal erythema. Eyes: Conjunctiva/sclera: Conjunctivae normal. Cardiovascular: Rate and Rhythm: Normal rate. Pulmonary: Effort: Pulmonary effort is normal. Breath sounds: Normal breath sounds. No wheezing, rhonchi or rales. Abdominal: Palpations: Abdomen is soft. Tenderness: There is no abdominal tenderness. There is no guarding or rebound. Musculoskeletal: General: Normal range of motion. Cervical back: Normal range of motion and neck supple. No edema or erythema. No pain with movement. Normal range of motion. Lymphadenopathy: Cervical: No cervical adenopathy. Skin: General: Skin is warm. Findings: No rash. Neurological: General: No focal deficit present. Mental Status: She is alert and oriented to person, place, and time. Mental status is at baseline. ASSESSMENT/PLAN: 1. Bacterial sinusitis - ICD9: 473.9, 041.9, ICD10: J32.9, B96.89 Diagnosed with bacterial sinusitis. Evidence of double sickening. Placed on cefdinir. Patient was educated on supportive therapies. Patient [...] of care. This note was generated using PonoMusic software. It may contain errors in wording, punctuation, or spelling. Keven Lawrence APRN.CNP MDM Procedures documented in this encounter [facility] 04-13-2024 Telephone encounter Note The following approved medication requests have been transmitted electronically. Requested Prescriptions Pending Prescriptions Disp Refills Omeprazole Magnesium (PRILOSEC OTC) 20 mg tablet 60 tablet 1 Sig: Take 1 tablet by mouth two times a day. Lilian Srivastava APRN.CNP [facility] 04-13-2024 Miscellaneous Notes The following approved medication requests have been transmitted electronically. Requested Prescriptions Pending Prescriptions Disp Refills Omeprazole Magnesium (PRILOSEC OTC) 20 mg tablet 60 tablet 1 Sig: Take 1 tablet by mouth two times a day. Lilian Srivastava APRN.CNP Prescription Refill Information The patient has been identified by name and date of : Yes Caregiver verified no other encounters exist for this prescription request: Yes Caregiver confirmed with patient/requestor that no other refills are due, in the near future, with this provider at this time: Yes The last office visit in the department: 06-21-23 Does the patient have a future office visit with this provider/department: Yes Requested Prescriptions Pending Prescriptions Disp Refills Omeprazole Magnesium (PRILOSEC OTC) 20 mg tablet 60 tablet 5 Sig: Take 1 tablet by mouth two times a day. Monica Vazquez April 12, 2024 3:14 PM documented in this encounter [facility] 04-12-2024 Telephone encounter Note Prescription Refill Information The patient has been identified by name and date of : Yes Caregiver verified no other encounters exist for this prescription request: Yes Caregiver confirmed with patient/requestor that no other refills are due, in the near future, with this provider at this time: Yes The last office visit in the department: 06-21-23 Does the patient have a future office visit with this provider/department: Yes Requested Prescriptions Pending Prescriptions Disp Refills Omeprazole Magnesium (PRILOSEC OTC) 20 mg tablet 60 tablet 5 Sig: Take 1 tablet by mouth two times a day. Monica Vazquez April 12, 2024 3:14 PM [facility] 03-22-2024 Note Patient Outreach (IN [facility]) DOLORES BARNHART ([id number]) 1960 F Date Time Provider Department 03/22/24 ITA GONZALEZ During your visit today, we recorded the following information about you: Allergies As of Date: 03/22/2024 Noted Allergy Reaction OXYCODONE 08/07/2010 11 - Vomiting AMITRIPTYLINE 07/25/2012 14 - Other: See Comments Comments: Caused palpatations AUGMENTIN (AMOXICILLIN-POT CLAVUL*05/31/2009 8 - GI Upset 11 - Vomiting CODEINE 04/01/2005 8 - GI Upset DOXYCYCLINE 04/11/2005 EGG 03/27/2013 8 - GI Upset LODINE XL (ETODOLAC) 04/11/2005 PREDNISONE 06/09/2007 1 - Mental Status Change PREVACID (LANSOPRAZOLE) 04/11/2005 PROZAC (FLUOXETINE HCL) 04/11/2005 Date Reviewed: 06/21/2023 Reviewed by: Lilian Srivastava APRN.LINEN SUPERVISOR - Fully Assessed Visit Diagnosis:Encounter for screening mammogram for breast cancer [Z12.31] Order(s):[facility] SCREENING [facility] ANNI [[id number]] Order #: [id number] FUTURE Prescriptions as of 03/27/2024 - gabapentin (NEURONTIN) 300 mg capsule Take 1 capsule by mouth three times a day for 90 days. - Omeprazole Magnesium (PRILOSEC OTC) 20 mg tablet Take 1 tablet by mouth two times a day. - citalopram (CELEXA) 40 mg tablet Take 1 tablet by mouth once daily. - traZODone (DESYREL) 50 mg tablet Take 1 tablet by mouth daily at bedtime. - ferrous gluconate 324 mg (37.5 mg iron) tablet Take 1 tablet by mouth daily with breakfast. - cyanocobalamin (VITAMIN B-12) 1,000 mcg tab Take 1 tablet by mouth once daily. Meds Comments as of 01/22/2017: 01/22/17 Takes Celexa and Prilosec. Out of Clonazepam. Negrita Cheek RN Problem List As Of Date 03/22/2024 Noted Resolved Positive Helicobacter pylori test [A04.8] [...] 05/10/2021 Palpitations [R00.2] 11/27/2021 Encounter Status:[facility] 02-22-2024 Telephone encounter Note Prescription Refill Information The patient has been identified by name and date of : Yes Caregiver verified no other encounters exist for this prescription request: Yes Caregiver confirmed with patient/requestor that no other refills are due, in the near future, with this provider at this time: Yes The last office visit in the department: 06-21-23 Does the patient have a future office visit with this provider/department: No Requested Prescriptions Pending Prescriptions Disp Refills gabapentin (NEURONTIN) 300 mg capsule 90 capsule 2 Sig: Take 1 capsule by mouth three times a day for 90 days. Elle Ferrer February 22, 2024 10:55 AM [facility] 02-22-2024 Miscellaneous Notes Prescription Refill Information The patient has been identified by name and date of : Yes Caregiver verified no other encounters exist for this prescription request: Yes Caregiver confirmed with patient/requestor that no other refills are due, in the near future, with this provider at this time: Yes The last office visit in the department: 06-21-23 Does the patient have a future office visit with this provider/department: No Requested Prescriptions Pending Prescriptions Disp Refills gabapentin (NEURONTIN) 300 mg capsule 90 capsule 2 Sig: Take 1 capsule by mouth three times a day for 90 days. Elle Ferrer February 22, 2024 10:55 AM documented in this encounter [facility] 10-04-2023 Telephone encounter Note The following approved medication requests have been transmitted electronically. Requested Prescriptions Pending Prescriptions Disp Refills gabapentin (NEURONTIN) 300 mg capsule 90 capsule 2 Sig: Take 1 capsule by mouth three times a day for 90 days. Lilian Srivastava APRN.CNS [facility] 10-04-2023 Miscellaneous Notes The following approved medication requests have been transmitted electronically. Requested Prescriptions Pending Prescriptions Disp Refills gabapentin (NEURONTIN) 300 mg capsule 90 capsule 2 Sig: Take 1 capsule by mouth three times a day for 90 days. Lilian Srivastava APRN.LINEN SUPERVISOR Prescription Refill Information The patient has been identified by name and date of : Yes Caregiver verified no other encounters exist for this prescription request: Yes Caregiver confirmed with patient/requestor that no other refills are due, in the near future, with this provider at this time: Yes The last office visit in the department: 06-21-23 Does the patient have a future office visit with this provider/department: Yes Requested Prescriptions Pending Prescriptions Disp Refills gabapentin (NEURONTIN) 300 mg capsule 90 capsule 2 Sig: Take 1 capsule by mouth three times a day for 90 days. Effie Ferrer October 04, 2023 4:13 PM documented in this encounter [facility] 10-04-2023 Telephone encounter Note Prescription Refill Information The patient has been identified by name and date of : Yes Caregiver verified no other encounters exist for this prescription request: Yes Caregiver confirmed with patient/requestor that no other refills are due, in the near future, with this provider at this time: Yes The last office visit in the department: 06-21-23 Does the patient have a future office visit with this provider/department: Yes Requested Prescriptions Pending Prescriptions Disp Refills gabapentin (NEURONTIN) 300 mg capsule 90 capsule 2 Sig: Take 1 capsule by mouth three times a day for 90 days. Effie Ferrer October 04, 2023 4:13 PM [facility] Work Phone: 09-09-2023 Telephone encounter Note The following approved medication requests have been transmitted electronically. Requested Prescriptions Pending Prescriptions Disp Refills Omeprazole Magnesium (PRILOSEC OTC) 20 mg tablet 60 tablet 5 Sig: Take 1 tablet by mouth two times a day. Lilian Srivastava APRN.CNS [facility] 09-09-2023 Miscellaneous Notes The following approved medication requests have been transmitted electronically. Requested Prescriptions Pending Prescriptions Disp Refills Omeprazole Magnesium (PRILOSEC OTC) 20 mg tablet 60 tablet 5 Sig: Take 1 tablet by mouth two times a day. Lilian Srivastava APRN.CNS Prescription Refill Information The patient has been identified by name and date of : Yes Caregiver verified no other encounters exist for this prescription request: Yes Caregiver confirmed with patient/requestor that no other refills are due, in the near future, with this provider at this time: Yes The last office visit in the department: 05-10-23 Does the patient have a future office visit with this provider/department: Yes Requested Prescriptions Pending Prescriptions Disp Refills Omeprazole Magnesium (PRILOSEC OTC) 20 mg tablet 60 tablet 5 Sig: Take 1 tablet by mouth two times a day. Elle Ferrer September 09, 2023 3:46 PM documented in this encounter [facility] 09-09-2023 Telephone encounter Note Prescription Refill Information The patient has been identified by name and date of : Yes Caregiver verified no other encounters exist for this prescription request: Yes Caregiver confirmed with patient/requestor that no other refills are due, in the near future, with this provider at this time: Yes The last office visit in the department: 05-10-23 Does the patient have a future office visit with this provider/department: Yes Requested Prescriptions Pending Prescriptions Disp Refills Omeprazole Magnesium (PRILOSEC OTC) 20 mg tablet 60 tablet 5 Sig: Take 1 tablet by mouth two times a day. Elle Ferrer September 09, 2023 3:46 PM [facility] 06-21-2023 Instructions Lilian Srivastava APRN.CNS - 06/21/2023 3:12 PM EDT 1) Tizanidine 4mg 3 x day as needed for stiff neck 2) Follow up in 6 months documented in this encounter [facility] 06-21-2023 History of Presen t illness Narrative This is a 62 year old female who presents today with: No chief complaint on file. HISTORY OF PRESENT ILLNESS: Dolores Barnhart is a 62 year old female. No chief complaint on file. Anxiety better. Younger sister just diagnosed with stage IV lung cancer. Buspirone works good, makes her a little tired. Sinus congestion. No fever or chills. No sore throat. No chest congestion. Woke up yesterday with stiff neck to right. Very limited ROM. PAST MEDICAL HISTORY: PAST MEDICAL HISTORY Diagnosis Date Abnormal CT [...] CT abd/ pel 05/28/15 treated in ED [facility]. Has f/u with Dr. Arthur for EGD [...] Hcl] MEDICATIONS Current Outpatient Medications Medication Sig gabapentin (NEURONTIN) 300 mg capsule Take 1 capsule by mouth three times a day for 90 days. busPIRone (BUSPAR) 5 mg tablet Take 1 tablet by mouth three times a day. Omeprazole Magnesium (PRILOSEC OTC) 20 mg tablet Take 1 tablet by mouth two times a day. traZODone (DESYREL) 50 mg tablet Take 1 tablet by mouth daily at bedtime. citalopram (CELEXA) 40 mg tablet Take 1 tablet by mouth once daily. ferrous gluconate 324 mg (37.5 mg iron) tablet Take 1 tablet by mouth daily with breakfast. cyanocobalamin (VITAMIN B-12) 1,000 mcg tab Take 1 tablet by mouth once daily. No current facility-administered medications for this visit. FAMILY HISTORY Problem Relation Age of Onset Diabetes Father Cervical Cancer Paternal Grandmother Stroke Paternal Grandfather Psychiatry Mother Heart Father Hypertension Father Social History Tobacco Use Smoking status: Former Years: 25 Types: Cigarettes Quit date: 06/27/2014 Years since quittin.9 Smokeless tobacco: Never Substance Use Topics Alcohol use: No Drug use: No EXAM: BP 124/76 Pulse 88 Resp 18 Wt 73.5 kg (162 lb) LMP 09/13/2006 SpO2 98% BMI 26.41 kg/m PHYSICAL EXAM: General Appearance: Well appearing, alert, in no acute distress, well-hydrated, well nourished.. Head: Normocephalic, no masses, lesions, tenderness or abnormalities. Ears: External ears normal, canals clear, no redness or buldging of ear drums. Nose/Sinuses: Nares normal, septum midline, mucosa normal, no drainage or sinus tenderness. Oropharynx: Lips, mucosa, and tongue normal, teeth and gums normal, oropharynx normal. Neck: Supple, no adenopathy; thyroid symmetric, normal size, no bruits. Very stiff neck- hurts to turn to the right, ROM limited by half- started yesterday Lungs: Lungs clear to auscultation. No wheezing, rhonchi, rales.. Heart: RRR without murmur, gallop, or rubs. No ectopy. LABS: ASSESSMENT/PLAN: 1. Anxiety with depression - ICD9: 300.4, ICD10: F41.8 Improved - BUSPIRONE 5 MG TABLET 2. 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 Cervical spasm- ICD9: 723.5, ICD10: M43.6 (primary diagnosis) Acute - TIZANIDINE 4 MG TABLET 3 x day as needed Discussed treatment plan and patient voices understanding. Patient's questions answered appropriately. Medications and potential side effects were discussed and patient voices understanding. Return to the office as scheduled or as needed for worsening/no improvement. Lilian Srivastava APRN.KURT The patient indicates understanding of these issues and agrees with the plan. documented in this encounter [facility] 06-10-2023 Miscellaneous Notes Pharmacy verified in [facility] Patient has been identified by name and date of : Yes Patient aware RX will be sent to pharmacy. No need to notify patient. Patient phones for refill(s): Requested Prescriptions Pending Prescriptions Disp Refills gabapentin (NEURONTIN) 300 mg capsule 90 capsule 2 Sig: Take 1 capsule by mouth three times a day for 90 days. Date of last office visit : 05/10/2023 Date of next office visit : 06/21/2023 Last 2 Encounter Wt Readings: Date: Wt: 05/10/2023 70.8 kg (156 lb) 04/27/2023 70.8 kg (156 lb) Not applicable Please advise. Effie Diop Pss documented in this encounter [facility] 05-10-2023 Instructions Lilian Srivastava APRN.CNS - 05/10/2023 4:49 PM EST 1) Buspirone 5mg up to 3 times a day as needed 2) Follow up in 1 month documented in this encounter [facility] 05-10-2023 History of Presen t illness Narrative This is a 62 year old female who presents today with: Patient presents with: Follow Up: Abdominal pain follow up-resolved Anxiety: increased HISTORY OF PRESENT ILLNESS: Dolores Barnhart is a 62 year old female. Patient presents with: Follow Up: Abdominal pain follow up-resolved Anxiety: increased Abdominal pain is pretty much gone Having increased anxiety. Off of clonazepam. Not taking trazodone. It made it hard to get out of bed to walk to bathroom in the night. Does not want to try a lower dose. Would rather discontinue. Taking care of mother who has Alzheimer's. Sister and daughter help her once or twice a week. PAST MEDICAL HISTORY: PAST MEDICAL HISTORY Diagnosis Date Abnormal CT [...] considered normal with exception of leiomyomatous uterus. 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 Has f/u with Dr. Arthur for EGD [...] Hcl] MEDICATIONS Current Outpatient Medications Medication Sig Omeprazole Magnesium (PRILOSEC OTC) 20 mg tablet Take 1 tablet by mouth two times a day. traZODone (DESYREL) 50 mg tablet Take 1 tablet by mouth daily at bedtime. gabapentin (NEURONTIN) 300 mg capsule Take 1 capsule by mouth three times a day for 90 days. citalopram (CELEXA) 40 mg tablet Take 1 tablet by mouth once daily. ferrous gluconate 324 mg (37.5 mg iron) tablet Take 1 tablet by mouth daily with breakfast. cyanocobalamin (VITAMIN B-12) 1,000 mcg tab Take 1 tablet by mouth once daily. clonazePAM (KLONOPIN) 0.5 mg tablet Take 0.5 tablets by mouth twice daily for 90 days. Try to wean by 1/2 Dose a few times a week. No current facility-administered medications for this visit. FAMILY HISTORY Problem Relation Age of Onset Diabetes Father Cervical Cancer Paternal Grandmother Stroke Paternal Grandfather Psychiatry Mother Heart Father Hypertension Father Social History Tobacco Use Smoking status: Former Years: 25 Types: Cigarettes Quit date: 06/27/2014 Years since quittin.8 Smokeless tobacco: Never Substance Use Topics Alcohol use: No Drug use: No REVIEW OF SYSTEMS GENERAL: No weight loss, malaise or fevers/chills HEENT: Negative for frequent or significant headaches, some sinus headache RESPIRATORY: Negative for cough, hemoptysis, wheezing, dyspnea or shortness of breath CARDIOVASCULAR: Negative for chest pain, leg swelling, orthopnea, or palpitations. : No history of dysuria, frequency or incontinence MUSCULOSKELETAL: Negative for joint pain or swelling. MOOD: Negative for depression, anxiety, or suicidal ideation. Trouble falling asleep. PHQ9 =8, GAD7 complete EXAM: BP 116/60 Pulse 89 Resp 18 Wt 70.8 kg (156 lb) LMP 09/13/2006 SpO2 99% BMI 25.43 kg/m PHYSICAL EXAM: General Appearance: Well appearing, alert, in no acute distress, well-hydrated, well nourished.. Lungs: Lungs clear to auscultation. No wheezing, rhonchi, rales.. Heart: RRR without murmur, gallop, or rubs. No ectopy. Mood: very shakey, Would like to try buspar that was discussed with provider.. ASSESSMENT/PLAN: 1. Abdominal pain of unknown cause - ICD9: 789.00, ICD10: R10.9 (primary diagnosis) - resolved 2. Anxiety with depression - ICD9: 300.4, ICD10: F41.8 - Off trazodone, not tolerating - Continue Celexa - Buspar 10mg 3 x day as needed Discussed treatment plan and patient voices understanding. Patient's questions answered appropriately. Medications and potential side effects were discussed and patient voices understanding. Return to the office as scheduled or as needed for worsening/no improvement. Lilian Srivastava APRN.CNS The patient indicates understanding of these issues and agrees with the plan. documented in this encounter [facility] 04-29-2023 Miscellaneous Notes Patient notified of results, verbalized understanding of instructions given. Liliana Brown MA ----- Message from Sabine Lyon APRN.CNP sent at 04/29/2023 7:26 AM EST ----- Urine culture did not show any evidence of infection. If not improving, recommend follow up with PCP. Sabine Lyon CNP documented in this encounter [facility] 02-22-2023 History of Presen t illness Narrative Behavioral Health Social Work Progress Note Patient identified for [facility] from: PCP Reason for referral: [facility] Assessment [facility] encounter type: MyChart Message Attempts to Outreach: 3 attempts Referral made: Psychology - Internal Psychology-Internal referral type: Therapy Final Disposition: Resources given Patient Discharged?: Yes Patient reported that caregiver was able to meet their needs today?: N/A therapist sent patient Titan Gaminghart follow up message offering assistance with linkage to behavioral health services. ARIELLA Cantor-Nataliya February 22, 2023 documented in this encounter [facility] 02-12-2023 Miscellaneous Notes Behavioral Health Social Work Progress Note Patient identified for [facility] from: PCP Reason for referral: [facility] Assessment [facility] encounter type: Telephone Encounter Attempts to Outreach: 1 attempt Patient Discharged?: No Patient reported that caregiver was able to meet their needs today?: N/A Phone call placed today, phone would pickle solution maker and then disconnect. therapist also initial outreach by completing message via [facility]. ARIELLA Cantor-S February 12, 2023 documented in this encounter [facility] 02-11-2023 Instructions Carol Gonzalez PA-C - 02/11/2023 [...] worsening, or other concerning symptoms, return to [facility] Care or Carol Gonzalez PA-C. documented in this encounter [facility] 02-11-2023 History of Presen t illness Narrative [...] (hcc) Atrophy of left kidney 06/22/2022/ in [facility] ER left flank pain with stable VS, [...] CT abd/ pel 05/28/15 treated in ED [facility]. Has f/u with Dr. Arthur for EGD [...] Vaccine(2 of 2) due on 02/17/2021 Covid-19 Vaccine(3 - 2022- season) due on 11/27/2022 EXAM: BP 126/80 [...] ICD10: Q25.40 (primary diagnosis) - SED RATE NISHALUBNATAMMIE - CONSULT TO VASCULAR SURGERY 2. Aortic [...] Carol Gonzalez PA-C documented in this encounter [facility] 08-26-2022 Miscellaneous Notes Patient has been identified by name and date of : Yes Requested Prescriptions Pending Prescriptions Disp Refills Omeprazole Magnesium (PRILOSEC OTC) 20 mg tablet 60 tablet 5 Sig: Take 1 tablet by mouth twice daily. RX INSTRUCTIONS: Patient aware RX will be sent to pharmacy. No need to notify patient. Hattie Hernandez [employer] documented in this encounter [facility] 08-17-2022 Miscellaneous Notes Spoke with pt and [...] not get into her my chart. Hi Dolores, Cholesterol and triglycerides are up a little- try to cut back on animal products. Iron has come up but still borderline low. Mild liver enzyme elevation: are you using any alcohol? Kidney function is stable, otherwise no concerns: highlighted areas are not concerning, If you have questions, either [facility] message us or call the office at [phone] and ask for me. Best regards, Angel Gonzalez PA-C Written by Carol Gonzalez PA-C on 08/16/2022 8:44 PM EDT Went over results, notes from Angel FRANCISCO with understanding. Patient said she is drinking 2 to 3 large alcoholic drinks every night. documented in this encounter [facility] 07-30-2022 History of Presen t illness Narrative 61 year old female with c/o 6 month follow up. 07/13/2022 in [facility] care for diarrhea. Negative stool culture, negative [...] (hcc) Atrophy of left kidney 06/22/22/ in [facility] ER left flank pain with stable VS, [...] CT abd/ pel 05/28/15 treated in ED [facility]. Has f/u with Dr. Arthur for EGD [...] mcg injection 1,000 mcg SUBCUTANEOUS 1/WK Jean Long MD 1,000 mcg at 11/18/20 1332 PAP [...] Carol Gonzalez PA-C documented in this encounter [facility] 07-13-2022 History of Presen t illness Narrative This note was created using [employer]. Subjective Dolores Barnhart is a 61 year old female. [...] Chronic progressive renal failure, stage 3 (moderate) ([facility]) 09/06/2017 RENAL FLOWSHEET Latest Ref Rng & Units 07/28/2012 06/04/2015 03/31/2017 CREATININE 0.58 - 0.96 mg/dL 0.93 1.00 1.52 (H) 07/05/10 CT retroperitoneal fibrosis with obstructive uropathy left kidny 09/16/15 CT demonstrated cortical atrophy l kidney COPD (chronic obstructive pulmonary disease) with chronic bronchitis ([facility]) 11/12/2011 Diverticulitis of large intestine without perforation or abscess without bleeding 10/10/2015 CT abd/ pel 05/28/15 treated in ED [facility]. Has f/u with Dr. Arthur for EGD [...] evaluation. NOLAN Joya documented in this encounter [facility] 07-04-2022 Miscellaneous Notes 1st attempt to reach [...] to the pharmacy. Please call patient at: [phone]. Elle Sterling Pss documented in this encounter [facility] 03-31-2022 Miscellaneous Notes Patient given results and verbalized understanding of instructions given. Gloria Aguilar Left message for patient to return call. Gloria Aguilar Please call and let patient know her urine culture showed the bacteria is resistant to the keflex she is on. Bactrim was sent in. She should stop keflex and start bactrim. documented in this encounter [facility] 03-27-2022 History of Presen t illness Narrative Subjective HPI HPI Dolores Barnhart is a 61 year old female [...] Gena Hutchinson PA-C documented in this encounter [facility] 02-03-2022 Miscellaneous Notes Patient given results and verbalized understanding of instructions given. Gloria Aguilar Negative for flu and COVID please notify thank you documented in this encounter [facility] 02-02-2022 History of Presen t illness Narrative [...] CT abd/ pel 05/28/15 treated in ED [facility]. Has f/u with Dr. Arthur for EGD [...] Peter Quesada MD documented in this encounter [facility] 01-28-2022 Miscellaneous Notes Patient has been identified [...] Gloria Cm Pss documented in this encounter [facility] 12-30-2021 Miscellaneous Notes Patient has been identified [...] pharmacy. No need to notify patient. Estrella Ferrer documented in this encounter [facility] 12-11-2021 Instructions Carol Gonzalez PA-C - 12/11/2021 5:20 PM EDT [...] with heart attacks. documented in this encounter [facility] 12-11-2021 History of Presen t illness Narrative 61 year old female with c/o here for ER follow up and to discussed heart condition. 11/22/2021 presented [facility] emergency department with complaint of dysuria, frequency, [...] medications, was given consult to Dr. Euceda uro-[employer] [facility] which patient has not scheduled. Pain did subside, patient still notes that she has urinary frequency. No definitive stone excreted. 11/26/2021 presented to [facility] emergency department feeling of palpitations over the [...] Chronic progressive renal failure, stage 3 (moderate) ([facility]) 09/06/2017 RENAL FLOWSHEET Latest Ref Rng & [...] CT abd/ pel 05/28/15 treated in ED [facility]. Has f/u with Dr. Arthur for EGD [...] mcg injection 1,000 mcg SUBCUTANEOUS 1/WK Jean Long MD 1,000 mcg at 11/18/20 1332 PAP [...] N20.0 Patient has consult to Dr. Euceda [facility]: We will replace so we get records. Patient will need to schedule appointment in hospital. Not clear whether patient actually cleared the stone or not, needs reevaluation. - CONSULT TO UROLOGY 3. Hydroureter on left - ICD9: 593.5, ICD10: N13.4 4. Hydronephrosis of left kidney - ICD9: 591, ICD10: N13.30 Carol Gonzalez PA-C documented in this encounter [facility] 11-26-2021 History of Presen t illness Narrative Triage note: NICOLE Dolores Barnhart is a 60 year old female [...] CT abd/ pel 05/28/15 treated in ED [facility]. Has f/u with Dr. Arthur for EGD [...] have confirmed and edited as necessary, the [facility] ASSESSMENT/PLAN: 1. Heart palpitations - ICD9: 785.1, ICD10: R00.2 (primary diagnosis) 2. Injury of head, initial encounter - ICD9: 959.01, ICD10: S09.90XA Due to nature of patient's complaint and lack of investigative tools available at [facility], recommend patient be seen at nearest ED for further work up of [place] [facility], offered squad, declined. Diagnosis and treatment plan were discussed and questions were answered to the patient's satisfaction. Pt acknowledged understanding of concepts and follow up plan. Specific signs and symptoms that would indicate the need for higher level of care were discussed in detail warranting prompt ER evaluation. Cheryle Braswell APRN.BANQUET DIRECTOR documented in this encounter [facility] 10-27-2021 History of Presen t illness Narrative [...] Wily Hawley RN documented in this encounter [facility] 10-20-2021 Instructions Keven Lawrence APRN.BANQUET DIRECTOR - 10/20/2021 5:46 PM EDT URINARY TRACT [...] or fluids down. documented in this encounter [facility] 10-20-2021 History of Presen t illness Narrative Subjective HPI A nontoxic appearing female presents to urgent care with chief complaint of possible UTI. Duration of symptoms 3 days. Associated symptoms dysuria, frequency, and urgency. Patient has history of UTIs in past with similar signs and symptoms. Patient denies the use of any gyim-qry-[id number] medications or home remedies for symptom management. [...] CT abd/ pel 05/28/15 treated in ED [facility]. Has f/u with Dr. Arthur for EGD [...] of care. This note was generated using [employer] software. It may contain errors in wording, punctuation, or spelling. Keven Lawrence APRN.TONI documented in this encounter [facility] 09-13-2021 History of Presen t illness Narrative Subjective HPI Dolores Barnhart is a 60 year old female [...] Chronic progressive renal failure, stage 3 (moderate) ([facility]) 09/06/2017 RENAL FLOWSHEET Latest Ref Rng & [...] CT abd/ pel 05/28/15 treated in ED [facility]. Has f/u with Dr. Arthur for EGD [...] Sabine Lyon APRN.CNP documented in this encounter [facility] 09-13-2021 Instructions Sabine Lyon APRN.CNP - 09/13/2021 [...] expected course of illness Sabine Lyon APRN.CNP [facility] PATIENT INFO BLADDER INFECTION OVERVIEW [...] have an infection. documented in this encounter [facility] 07-28-2021 History of Presen t illness Narrative [...] CT abd/ pel 05/28/15 treated in ED [facility]. Has f/u with Dr. Arthur for EGD [...] Vazquez PA-C 07/28/2021 documented in this encounter [facility] 07-14-2021 History of Presen t illness Narrative This note was created using [employer]. Subjective Dolores Barnhart is a 60 year old female. [...] Chronic progressive renal failure, stage 3 (moderate) ([facility]) 09/06/2017 RENAL FLOWSHEET Latest Ref Rng & Units 07/28/2012 06/04/2015 03/31/2017 CREATININE 0.58 - 0.96 mg/dL 0.93 1.00 1.52 (H) 07/05/10 CT retroperitoneal fibrosis with obstructive uropathy left kidny 09/16/15 CT demonstrated cortical atrophy l kidney COPD (chronic obstructive pulmonary disease) with chronic bronchitis ([facility]) 11/12/2011 Diverticulitis of large intestine without perforation or abscess without bleeding 10/10/2015 CT abd/ pel 05/28/15 treated in ED [facility]. Has f/u with Dr. Arthur for EGD [...] mcg injection 1,000 mcg SUBCUTANEOUS 1/WK Jean Long MD 1,000 mcg at 11/18/20 1332 PAST [...] Nelly Allen PA-C documented in this encounter [facility] 07-04-2021 Miscellaneous Notes PATIENT NOTIFIED OF SAME. [...] Chaparrita Newman APRN.TONI documented in this encounter [facility] 06-25-2021 Instructions Marcelo Allen APRN.CNP - 06/25/2021 [...] front to back documented in this encounter [facility] 06-25-2021 History of Presen t illness Narrative Subjective HPI HPI Dolores Barnhart is a 60 year old female [...] Chronic progressive renal failure, stage 3 (moderate) ([facility]) 09/06/2017 RENAL FLOWSHEET Latest Ref Rng & [...] CT abd/ pel 05/28/15 treated in ED [facility]. Has f/u with Dr. Arthur for EGD [...] Marcelo Allen APRN.CNP documented in this encounter [facility] 10-10-2015 History of Past i llness Narrative Problem Noted Date Resolved Date LLQ pain 10/10/2015 09/06/2017 Irritable bowel syndrome with diarrhea 6 09/06/2017 Acne 12/03/2011 09/06/2017 COPD (chronic obstructive pu lmonary disease) with chronic bronchitis 11/12/2011 08/22/2014 Anxiety 08/07/2010 09/06/2017 Acute unilateral obstructive uropathy 08/07/2010 09/06/2017 Colitis 10/31/2009 09/06/2017 Shortness of breath 12/26/2007 09/06/2017 Tobacco use disorder 06/09/2007 09/06/2017 documented as of this encounter (statuses as of 06/25/2021) [facility] Narrative* Problem Noted [...] of this encounter (statuses as of 07/04/2021) [facility] Narrative* Problem Noted [...] of this encounter (statuses as of 07/14/2021) [facility] Narrative* Problem Noted [...] of this encounter (statuses as of 07/28/2021) [facility] Narrative* Problem Noted [...] of this encounter (statuses as of 09/13/2021) [facility] Narrative* Problem Noted Date Resolved Date LLQ pain 10/10/2015 09/06/2017 Irritable bowel syndrome with diarrhea 09/06/2017 Acne 12/03/2011 09/06/2017 COPD (chronic obstructive pu lmonary disease) with chronic bronchitis 11/12/2011 08/22/2014 Anxiety 08/07/2010 09/06/2017 Acute unilateral obstructive uropathy 08/07/2010 09/06/2017 Colitis 10/31/2009 09/06/2017 Shortness of breath 12/26/2007 09/06/2017 Tobacco use disorder 06/09/2007 09/06/2017 documented as of this encounter (statuses as of 10/20/2021) [facility] Narrative* Problem Noted [...] of this encounter (statuses as of 10/27/2021) [facility] Narrative* Problem Noted [...] of this encounter (statuses as of 11/26/2021) [facility] Narrative* Problem Noted [...] of this encounter (statuses as of 12/12/2021) [facility] Narrative* Problem Noted [...] of this encounter (statuses as of 12/31/2021) [facility] Narrative* Problem Noted [...] of this encounter (statuses as of 01/20/2022) [facility] Narrative* Problem Noted [...] of this encounter (statuses as of 01/30/2022) [facility] Narrative* Problem Noted [...] of this encounter (statuses as of 02/02/2022) [facility] Narrative* Problem Noted [...] of this encounter (statuses as of 02/03/2022) [facility] Narrative* Problem Noted [...] of this encounter (statuses as of 04/02/2022) [facility] Narrative* Problem Noted [...] of this encounter (statuses as of 05/18/2022) [facility] Narrative* Problem Noted [...] of this encounter (statuses as of 07/04/2022) [facility] Narrative* Problem Noted [...] of this encounter (statuses as of 07/14/2022) [facility] Narrative* Problem Noted [...] of this encounter (statuses as of 07/31/2022) [facility] Narrative* Problem Noted [...] of this encounter (statuses as of 08/27/2022) [facility] Narrative* Problem Noted [...] of this encounter (statuses as of 09/10/2022) [facility] Narrative* Problem Noted [...] of this encounter (statuses as of 02/12/2023) [facility] Narrative* Problem Noted [...] of this encounter (statuses as of 02/12/2023) [facility] Narrative* Problem Noted [...] of this encounter (statuses as of 02/22/2023) [facility] Narrative* Problem Noted [...] as of this encounter (statuses as of 04/29/2023) [facility] Narrative* Problem Noted [...] as of this encounter (statuses as of 05/11/2023) [facility] Narrative* Problem Noted [...] as of this encounter (statuses as of 06/11/2023) [facility] Narrative* Problem Noted [...] as of this encounter (statuses as of 06/21/2023) [facility] Diagnosis Burning with urination- Primary Dysuria [facility] Diagnosis Anxiety neurosis- Primary Anxiety state, unspecified [facility] Diagnosis Acute UTI- Primary Urinary tract infection, site not specified Nausea Nausea alone [facility] Diagnosis Urinary frequency- Primary [facility] Diagnosis Urinary frequency [facility]* Diagnosis Burning with urination- Primary Dysuria [facility]* Diagnosis Heart palpitations- Primary Palpitations Injury of head, initial encounter [facility] noteNo assessment information availableWSelect Medical [facility] Work Phone: Evaluation note* Diagnosis Precordial pain- Primary Kidney stone Calculus of kidney Hydroureter on left Hydroureter Hydronephrosis of left kidney Hydronephrosis [facility]* Diagnosis Adjustment disorder with depressed mood Anxiety neurosis Anxiety state, unspecified documented in this encounter [facility] note* Diagnosis Sore throat- Primary Acute pharyngitis documented in this encounter [facility] note* Diagnosis Urinary frequency- Primary documented in this encounter [facility] note* Diagnosis Encounter for screening mammogram for breast cancer documented in this encounter [facility] note* Diagnosis Adjustment disorder with depressed mood Anxiety neurosis Anxiety state, unspecified documented in this encounter [facility] note* Diagnosis Diarrhea, unspecified type- Primary documented in this encounter [facility] note* Diagnosis Hyperlipidemia, mixed- Primary Mixed [...] malignant neoplasms, colon documented in this encounter [facility] note* Diagnosis Gastroesophageal reflux disease, unspecified whether esophagitis present [facility]* Diagnosis Abnormality of abdominal aorta- Primary Aortic stenosis, mild Aortic valve disorders Anxiety neurosis Anxiety state, unspecified Adjustment disorder with depressed mood Diarrhea of presumed infectious origin Acute upper respiratory infection Acute upper respiratory infections of unspecified site documented in this encounter [facility] note* Diagnosis Abdominal pain of unknown cause- Primary Anxiety with depression documented in this encounter [facility] note* Diagnosis Torticollis- Primary Torticollis, unspecified Anxiety with depression Adjustment disorder with depressed mood Anxiety neurosis Anxiety state, unspecified [facility] Diagnosis Gastroesophageal reflux disease, unspecified whether esophagitis present [facility]* Diagnosis Encounter for screening mammogram for breast cancer [facility]* Diagnosis Gastroesophageal reflux disease, unspecified whether esophagitis present [facility] Bacterial sinusitis- Primary Unspecified sinusitis (chronic) [facility] Diagnosis Gastroesophageal reflux disease, unspecified whether esophagitis present [facility] Diagnosis Adjustment disorder with depressed mood Anxiety neurosis Anxiety state, unspecified [facility]* Diagnosis Neck pain, chronic- Primary Cervicalgia Gastroesophageal reflux disease, unspecified whether esophagitis present Myofascial pain Mylagia and myositis, unspecified RLS (restless legs syndrome) Restless legs syndrome (RLS) Adjustment disorder with depressed mood Screening for depression Stage 3a chronic kidney disease (HCC) Heart failure with preserved ejection fraction, unspecified HF chronicity (HCC) Screening for diabetes mellitus Screening for cervical cancer Screening for malignant neoplasm of the cervix [facility] Diagnosis Abnormal liver function test- Primary Other abnormal blood chemistry [facility]* Diagnosis Pain with urination- Primary Renal colic Acute UTI Urinary tract infection, site not specified [facility]* Diagnosis Abnormal liver function test Other abnormal blood chemistry [facility]* Diagnosis Other specified disorders of kidney and ureter- Primary Fatty liver Other chronic nonalcoholic liver disease [facility]* Diagnosis Other specified disorders of kidney and ureter [facility]* Diagnosis Gastroesophageal reflux disease, unspecified whether esophagitis present Adjustment disorder with depressed mood Anxiety neurosis Anxiety state, unspecified Neck pain, chronic Cervicalgia Myofascial pain Mylagia and myositis, unspecified [facility]* Diagnosis Pain in both lower extremities- Primary [facility] Additional Instructions You have symptomatic PVCs during monitoring. Your EKG notes new T wave inversion in lead III and flattening in aVF. 2 troponins are negative. Follow-up with your doctor for further testing breathing as an outpatient. Return if any worsening symptoms. Edition you are diagnosed with kidney stones 3 days ago with UTI your culture was positive for Proteus bacteria. Is sensitive to Bactrim. Make sure you take and finish your antibiotic. You had stones in your left ureter. Follow-up with urology.[facility] Work Phone: Hospital Discharge instructions Additional Instructions Please take antibiotics until finished.[facility] Work Phone: Reason for referral (narrative)* Diagnostic Procedure Only (Routine) - Pending Review Specialty Diagnoses / Procedures Referred By Colton thompson Referred To Contact [facility] Diagnoses Encounter for screening mammogram for breast cancer Procedures RENETTA SCREENING SCREENING MAMMOGRAPHY BI 2-VIEW BREAST INC Carol Burgess PA-C [address] [place] [address] [facility] [address] [address] Referral ID Status Reason Start Date Expiration Date Visits Requested Visits Authorized [id number] Pending Review Auto-Generat ed Referral 05/13/2022 06/12/2023 1 1 AN [facility] ([facility] Diagnostic Procedure Only (Routine) - New Request Specialty Diagnoses / Procedures Referred By Colton thompson Referred To Contact [facility] Diagnoses Encounter for screening mammogram for breast cancer Procedures RENETTA SCREENING W ANNI SCREENING DIGITAL BREAST TOMOSYNTHESIS BI SCREENING MAMMOGRAPHY BI 2-VIEW BREAST INC Ita Burgess PA-C [facility] [address] [place] [address] Referral ID Status Reason Start Date Expiration Date Visits Requested Visits Authorized [id number] New Request Auto-Generat ed Referral 04/21/2025 1 1 NA [facility] ([facility])No reason for referral information availableWSelect Medical [facility] Work Phone: Chief Complaint and Reason for Visit Chief Complaint FLANK PAIN Chief Complaint FLANK PAIN CHEST PAIN Chief Complaint FLANK PAIN CHEST PAIN ABD PAIN Chief Complaint FLANK PAIN CHEST PAIN ABD PAIN BODY ACHES,HEADACHE,DIZZY Chief Complaint abd pain Chief Complaint Admit Date RENAL MASS August 25, 2024 2:04p m Family History No Family History Records Found Relationship Condition Age at Onset Recorded Date/T kamran Unknown Family History?- Unknown April 6:37pm Family History?- Unknown July 18, 2018 9:30pm Relationship Condition Age at Onset Recorded Date/T kamran Unknown Family History?- Unknown April 5:37pm Family History?- Unknown July 18, 2018 8:30pm Advance Directives No Advanced Directives Records Found Advance Directive Response Recorded Date/ Time Advance Directives No May 27 5:56pm Living Will No November 22 2 3:17pm Power of Duplicating Machine Operator No November 22 2 022 3:17pm Advance Directive Response Recorded Date/ Time Advance Directives No May 27 5:56pm Living Will No November 26 2 6:09pm Power of Duplicating Machine Operator No November 26 2 022 6:09pm Advance Directive Response Recorded Date/ Time Advance Directives No May 27 5:56pm Living Will No January 21 3:48pm Power of Duplicating Machine Operator No January 21, 2022 3:48pm Advance Directive Response Recorded Date/ Time Advance Directives No May 27 4:56pm Living Will No February 24 2 022 11:47am Power of Duplicating Machine Operator No February 24, 2022 11:47am Advance Directive Response Recorded Date/ Time Advance Directives No May 27 4:56pm Living Will No February 24 2 023 5:19pm Power of Duplicating Machine Operator No February 24, 2023 5:19pm Advance Directive Response Recorded Date/ Time Advance Directives No May 27 5:56pm Reason for Referral Specialty Diagnoses / Procedures Referred By Colton thompson Referred To Contact Urology Diagnoses Kidney stone Procedures CONSULT TO UROLOGY OFFICE/OUTPATIENT NEW HIGH MDM 60-74 MINUTES Carol Gonzalez PA-C [address] [place] [address] Referral ID Status Reason Start Date Expiration Date Visits Requested Visits Authorized [id number] Authorized PCP Requested Referral 12/11/2021 12/11/2022 1 1 Specialty Diagnoses / Procedures Referred By Colton thompson [facility] Diagnoses Precordial pain Procedures ECHO ECHO TTHRC R-T 2D W/WOM-MODE COMPL SPEC&COLR D Carol Gonzalez PA-C [address] [place] [address] [facility] [place] [address] [place] [address] Referral ID Status Reason Start Date Expiration Date Visits Requested Visits Authorized [id number] Authorized Auto-Generat ed Referral 12/11/2021 12/11/2022 1 1 Specialty Diagnoses / Procedures Referred By Contac t Referred To Contact [facility]CTION[facility] Diagnoses Precordial pain Procedures NM CARDIAC PERF STRESS/PHARM MYOCARDIAL SPECT MULTIPLE STUDIES Carol Gonzalez PA-C [address] [place] [address] [facility] [address] [place] [address] Referral ID Status Reason Start Date Expiration Date Visits Requested Visits Authorized [id number] Authorized Auto-Generat ed Referral 12/11/2021 01/10/2023 1 1 Specialty Diagnoses / Procedures Referred By Contac t Referred To Contact Gynecology Diagnoses Screening for cervical cancer Procedures CONSULT TO GYNECOLOGY OFFICE/OUTPATIENT [facility] 60-74 MINUTES Carol Gonzalez PA-C [address] [place] [address] Referral ID Status Reason Start Date Expiration Date Visits Requested Visits Authorized [id number] Pending Review PCP Requested Referral Auto-Generate d Referral 07/30/2022 07/30/2023 1 1 Specialty Diagnoses / Procedures Referred By Contac t Referred To Contact Vascular Surgery Diagnoses Abnormality of abdominal aorta Procedures CONSULT TO VASCULAR SURGERY OFFICE/OUTPATIENT [facility] 60-74 MINUTES Carol Gonzalez PA-C [address] [place] [address] Referral ID Status Reason Start Date Expiration Date Visits Requested Visits Authorized [id number] Pending Review PCP Requested Referral 02/10/2024 1 1 Health Concerns Infection Onset Date Last Indicated Resolved Time COVID-19 Rule-Out 02/02/2022 02/02/2022 Infection Onset Date Last Indicated Resolved Time COVID-19 Rule-Out 02/02/2022 02/02/2022 02/03/2022 5:20 AM EST Summary Purpose Additional Source Comments Source Comments (unrecognize d section and content) In the event this informatio n is protected by the Federal Confidentiality of Alcohol and Drug Abuse Patient Records regulations: The Federal rules restrict any use of the information to criminally investigate or prosecute any alcohol or drug abuse patient.[facility] SystemIn the event this information is protected by the Federal Confidentiality of Alcohol and Drug Abuse Patient Records regulations: The Federal rules restrict any use of the information to criminally investigate or prosecute any alcohol or drug abuse patient.[facility] SystemIn the event this information is protected by the Federal Confidentiality of Alcohol and Drug Abuse Patient Records regulations: The Federal rules restrict any use of the information to criminally investigate or prosecute any alcohol or drug abuse patient.[facility] SystemIn the event this information is protected by the Federal Confidentiality of Alcohol and Drug Abuse Patient Records regulations: The Federal rules restrict any use of the information to criminally investigate or prosecute any alcohol or drug abuse patient.[facility] SystemIn the event this information is protected by the Federal Confidentiality of Alcohol and Drug Abuse Patient Records regulations: The Federal rules restrict any use of the information to criminally investigate or prosecute any alcohol or drug abuse patient.[facility] SystemIn the event this information is protected by the Federal Confidentiality of Alcohol and Drug Abuse Patient Records regulations: The Federal rules restrict any use of the information to criminally investigate or prosecute any alcohol or drug abuse patient.[facility] SystemIn the event this information is protected by the Federal Confidentiality of Alcohol and Drug Abuse Patient Records regulations: The Federal rules restrict any use of the information to criminally investigate or prosecute any alcohol or drug abuse patient.[facility] SystemIn the event this information is protected by the Federal Confidentiality of Alcohol and Drug Abuse Patient Records regulations: The Federal rules restrict any use of the information to criminally investigate or prosecute any alcohol or drug abuse patient.[facility] SystemIn the event this information is protected by the Federal Confidentiality of Alcohol and Drug Abuse Patient Records regulations: The Federal rules restrict any use of the information to criminally investigate or prosecute any alcohol or drug abuse patient.[facility] SystemIn the event this information is protected by the Federal Confidentiality of Alcohol and Drug Abuse Patient Records regulations: The Federal rules restrict any use of the information to criminally investigate or prosecute any alcohol or drug abuse patient.[facility] SystemIn the event this information is protected by the Federal Confidentiality of Alcohol and Drug Abuse Patient Records regulations: The Federal rules restrict any use of the information to criminally investigate or prosecute any alcohol or drug abuse patient.[facility] SystemIn the event this information is protected by the Federal Confidentiality of Alcohol and Drug Abuse Patient Records regulations: The Federal rules restrict any use of the information to criminally investigate or prosecute any alcohol or drug abuse patient.[facility] SystemIn the event this information is protected by the Federal Confidentiality of Alcohol and Drug Abuse Patient Records regulations: The Federal rules restrict any use of the information to criminally investigate or prosecute any alcohol or drug abuse patient.[facility] SystemIn the event this information is protected by the Federal Confidentiality of Alcohol and Drug Abuse Patient Records regulations: The Federal rules restrict any use of the information to criminally investigate or prosecute any alcohol or drug abuse patient.[facility] SystemIn the event this information is protected by the Federal Confidentiality of Alcohol and Drug Abuse Patient Records regulations: The Federal rules restrict any use of the information to criminally investigate or prosecute any alcohol or drug abuse patient.[facility] SystemIn the event this information is protected by the Federal Confidentiality of Alcohol and Drug Abuse Patient Records regulations: The Federal rules restrict any use of the information to criminally investigate or prosecute any alcohol or drug abuse patient.[facility] SystemIn the event this information is protected by the Federal Confidentiality of Alcohol and Drug Abuse Patient Records regulations: The Federal rules restrict any use of the information to criminally investigate or prosecute any alcohol or drug abuse patient.[facility] SystemIn the event this information is protected by the Federal Confidentiality of Alcohol and Drug Abuse Patient Records regulations: The Federal rules restrict any use of the information to criminally investigate or prosecute any alcohol or drug abuse patient.[facility] SystemIn the event this information is protected by the Federal Confidentiality of Alcohol and Drug Abuse Patient Records regulations: The Federal rules restrict any use of the information to criminally investigate or prosecute any alcohol or drug abuse patient.[facility] SystemIn the event this information is protected by the Federal Confidentiality of Alcohol and Drug Abuse Patient Records regulations: The Federal rules restrict any use of the information to criminally investigate or prosecute any alcohol or drug abuse patient.[facility] SystemIn the event this information is protected by the Federal Confidentiality of Alcohol and Drug Abuse Patient Records regulations: The Federal rules restrict any use of the information to criminally investigate or prosecute any alcohol or drug abuse patient.[facility] SystemIn the event this information is protected by the Federal Confidentiality of Alcohol and Drug Abuse Patient Records regulations: The Federal rules restrict any use of the information to criminally investigate or prosecute any alcohol or drug abuse patient.[facility] SystemIn the event this information is protected by the Federal Confidentiality of Alcohol and Drug Abuse Patient Records regulations: The Federal rules restrict any use of the information to criminally investigate or prosecute any alcohol or drug abuse patient.[facility] SystemIn the event this information is protected by the Federal Confidentiality of Alcohol and Drug Abuse Patient Records regulations: The Federal rules restrict any use of the information to criminally investigate or prosecute any alcohol or drug abuse patient.[facility] SystemIn the event this information is protected by the Federal Confidentiality of Alcohol and Drug Abuse Patient Records regulations: The Federal rules restrict any use of the information to criminally investigate or prosecute any alcohol or drug abuse patient.[facility] SystemIn the event this information is protected by the Federal Confidentiality of Alcohol and Drug Abuse Patient Records regulations: The Federal rules restrict any use of the information to criminally investigate or prosecute any alcohol or drug abuse patient.[facility] SystemIn the event this information is protected by the Federal Confidentiality of Alcohol and Drug Abuse Patient Records regulations: The Federal rules restrict any use of the information to criminally investigate or prosecute any alcohol or drug abuse patient.[facility] SystemIn the event this information is protected by the Federal Confidentiality of Alcohol and Drug Abuse Patient Records regulations: The Federal rules restrict any use of the information to criminally investigate or prosecute any alcohol or drug abuse patient.[facility] SystemIn the event this information is protected by the Federal Confidentiality of Alcohol and Drug Abuse Patient Records regulations: The Federal rules restrict any use of the information to criminally investigate or prosecute any alcohol or drug abuse patient.[facility] SystemIn the event this information is protected by the Federal Confidentiality of Alcohol and Drug Abuse Patient Records regulations: The Federal rules restrict any use of the information to criminally investigate or prosecute any alcohol or drug abuse patient.[facility] SystemIn the event this information is protected by the Federal Confidentiality of Alcohol and Drug Abuse Patient Records regulations: The Federal rules restrict any use of the information to criminally investigate or prosecute any alcohol or drug abuse patient.[facility] SystemIn the event this information is protected by the Federal Confidentiality of Alcohol and Drug Abuse Patient Records regulations: The Federal rules restrict any use of the information to criminally investigate or prosecute any alcohol or drug abuse patient.[facility] SystemIn the event this information is protected by the Federal Confidentiality of Alcohol and Drug Abuse Patient Records regulations: The Federal rules restrict any use of the information to criminally investigate or prosecute any alcohol or drug abuse patient.[facility] SystemIn the event this information is protected by the Federal Confidentiality of Alcohol and Drug Abuse Patient Records regulations: The Federal rules restrict any use of the information to criminally investigate or prosecute any alcohol or drug abuse patient.[facility] SystemIn the event this information is protected by the Federal Confidentiality of Alcohol and Drug Abuse Patient Records regulations: The Federal rules restrict any use of the information to criminally investigate or prosecute any alcohol or drug abuse patient.[facility] SystemIn the event this information is protected by the Federal Confidentiality of Alcohol and Drug Abuse Patient Records regulations: The Federal rules restrict any use of the information to criminally investigate or prosecute any alcohol or drug abuse patient.[facility] SystemIn the event this information is protected by the Federal Confidentiality of Alcohol and Drug Abuse Patient Records regulations: The Federal rules restrict any use of the information to criminally investigate or prosecute any alcohol or drug abuse patient.[facility] SystemIn the event this information is protected by the Federal Confidentiality of Alcohol and Drug Abuse Patient Records regulations: The Federal rules restrict any use of the information to criminally investigate or prosecute any alcohol or drug abuse patient.[facility] SystemIn the event this information is protected by the Federal Confidentiality of Alcohol and Drug Abuse Patient Records regulations: The Federal rules restrict any use of the information to criminally investigate or prosecute any alcohol or drug abuse patient.[facility] SystemIn the event this information is protected by the Federal Confidentiality of Alcohol and Drug Abuse Patient Records regulations: The Federal rules restrict any use of the information to criminally investigate or prosecute any alcohol or drug abuse patient.[facility] SystemIn the event this information is protected by the Federal Confidentiality of Alcohol and Drug Abuse Patient Records regulations: The Federal rules restrict any use of the information to criminally investigate or prosecute any alcohol or drug abuse patient.[facility] SystemIn the event this information is protected by the Federal Confidentiality of Alcohol and Drug Abuse Patient Records regulations: The Federal rules restrict any use of the information to criminally investigate or prosecute any alcohol or drug abuse patient.[facility] SystemIn the event this information is protected by the Federal Confidentiality of Alcohol and Drug Abuse Patient Records regulations: The Federal rules restrict any use of the information to criminally investigate or prosecute any alcohol or drug abuse patient.[facility] SystemIn the event this information is protected by the Federal Confidentiality of Alcohol and Drug Abuse Patient Records regulations: The Federal rules restrict any use of the information to criminally investigate or prosecute any alcohol or drug abuse patient.[facility] SystemIn the event this information is protected by the Federal Confidentiality of Alcohol and Drug Abuse Patient Records regulations: The Federal rules restrict any use of the information to criminally investigate or prosecute any alcohol or drug abuse patient.[facility] SystemIn the event this information is protected by the Federal Confidentiality of Alcohol and Drug Abuse Patient Records regulations: The Federal rules restrict any use of the information to criminally investigate or prosecute any alcohol or drug abuse patient.[facility] SystemIn the event this information is protected by the Federal Confidentiality of Alcohol and Drug Abuse Patient Records regulations: The Federal rules restrict any use of the information to criminally investigate or prosecute any alcohol or drug abuse patient.[facility] SystemIn the event this information is protected by the Federal Confidentiality of Alcohol and Drug Abuse Patient Records regulations: The Federal rules restrict any use of the information to criminally investigate or prosecute any alcohol or drug abuse patient.[facility] Reason for Visit (unrecogniz ed section and content) Reason Comments burning with urination burning and cloud y urine x 2 days Reason Comments Results Reason Comments Pelvic Pain [...] Symptomatic PVC's, P alpitations, Atypical Chest Pain- [facility] 11/26/21Sejaley Stone on Left Reason Onset Date Comments [...] Exam Diarrhea 5 days Sinusitis Reason Comments [facility] Reason Comments Follow Up Abdominal pain follo w up-resolved Anxiety increased Reason Onset Date Comments Refill Request 06/10/2023 Reason Onset Date Comments Refill Request 09/09/2023 Reason Onset Date Comments Refill Request 10/04/2023 Reason Onset Date Comments Refill Request 02/22/2024 Reason Onset Date Comments Refill Request 04/12/2024 Reason Comments Nasal Congestion Sinus congestion, he adache, ear pain clogged, bilat, sneezing, pressure and pain x 1 month Reason Onset Date Comments Refill Request 06/21/2024 Reason Onset Date Comments Refill Request 07/05/2024 Reason Comments Appointment Reason Comments Urinary Problem Burning with urinati on since this morning. Reason Comments Radiology US Specialty Diagnoses / Procedures Referred By Contac t Referred To Contact [facility] Diagnoses Abnormal liver function test Procedures US ABD RIGHT UPPER QUADRANT US ABDOMINAL REAL TIME W/IMAGE LIMITED Lilian Srivastava APRN.BANQUET DIRECTOR [address] [place] [address] Phone: tel: fax: [place] [address] Referral ID Status Reason Start Date Expiration Date V isits Requested Visits Authorized [id number] Closed Auto-Generate d Referral 07/20/2024 08/12/2025 1 1 Reason Onset Date Comments Results 07/26/2024 Reason Comments Results Reason Comments Radiology CT Specialty Diagnoses / Procedures Referred By Contac t Referred To Contact CT IMAGING Diagnoses Other specified disorders of kidney and ureter Procedures CT KIDNEY WO/W IVCON CT ABDOMEN W & W/O CONTRAST Jean Long MD [address] [place] [address] Phone: tel: fax: [place] [address] Referral ID Status Reason Start Date Expiration Date Visits Requested Visits Authorized [id number] Authorized Auto-Generat ed Referral 07/26/2024 08/25/2025 1 1 Reason Comments Patient problem panic attack during CT scan Reason Onset Date Comments Refill Request 08/04/2024 Care Teams (unrecognized sec tion and content) Sheriff Detective Relationship Specialty Start Date End Date Carol Gonzalez PA-C [address] [place] [address] PCP - General Family Practice 09/06/17 Sheriff Detective Relationship Specialty Start Date End Date Carol Gonzalez PA-C [address] [facility] [place] [address] PCP - General Family Practice 09/06/17 Sheriff Detective Relationship Specialty Start Date End Date Carol Gonzalez PA-C [address] [facility] [place] [address] PCP - General Family Practice 09/06/17 Sheriff Detective Relationship Specialty Start Date End Date Carol Gonzalez PA-C [address] [facility] [place] [address] PCP - General Family Practice 09/06/17 Sheriff Detective Relationship Specialty Start Date End Date Carol Gonzalez PA-C [address] [facility] [place] [address] PCP - General Family Practice 09/06/17 Sheriff Detective Relationship Specialty Start Date End Date Carol Gonzalez PA-C [address] [facility] [place] [address] PCP - General Family Practice 09/06/17 Sheriff Detective Relationship Specialty Start Date End Date Carol Gonzalez PA-C [address] [facility] [place] [address] PCP - General Family Practice 09/06/17 Sheriff Detective Relationship Specialty Start Date End Date Carol Gonzalez PA-C [address] [facility] [place] [address] PCP - General Family Practice 09/06/17 Sheriff Detective Relationship Specialty Start Date End Date Carol Gonzalez PA-C [address] [facility] [place] [address] PCP - General Family Practice 09/06/17 Sheriff Detective Relationship Specialty Start Date End Date Carol Gonzalez PA-C [address] [facility] [place] [address] PCP - General Family Medicine 09/06/17 Sheriff Detective Relationship Specialty Start Date End Date Carol Gonzalez PA-C [address] [facility] [place] [address] PCP - General Family Medicine 09/06/17 Sheriff Detective Relationship Specialty Start Date End Date Carol Gonzalez PA-C [address] [facility] [place] [address] PCP - General Family Medicine 09/06/17 Sheriff Detective Relationship Specialty Start Date End Date Carol Gonzalez PA-C [address] [facility] [place] [address] PCP - General Family Medicine 09/06/17 Sheriff Detective Relationship Specialty Start Date End Date Carol Gonzalez PA-C [address] [facility] [place] [address] PCP - General Family Medicine 09/06/17 Sheriff Detective Relationship Specialty Start Date End Date Carol Gonzalez PA-C [address] [facility] [place] [address] PCP - General Family Medicine 09/06/17 Sheriff Detective Relationship Specialty Start Date End Date Carol Gonzalez PA-C [address] [facility] [place] [address] PCP - General Family Medicine 09/06/17 Sheriff Detective Relationship Specialty Start Date End Date Carol Gonzalez PA-C [address] [facility] [place] [address] PCP - General Family Medicine 09/06/17 Sheriff Detective Relationship Specialty Start Date End Date Carol Gonzalez PA-C [address] [facility] [place] [address] PCP - General Family Medicine 09/06/17 Sheriff Detective Relationship Specialty Start Date End Date Carol Gonzalez PA-C [address] [facility] [place] [address] PCP - General Family Medicine 09/06/17 Sheriff Detective Relationship Specialty Start Date End Date Carol Gonzalez PA-C [address] [facility] [place] [address] PCP - General Family Medicine 09/06/17 Sheriff Detective Relationship Specialty Start Date End Date Carol Gonzalez PA-C [address] [facility] [place] [address] PCP - General Family Medicine 09/06/17 Sheriff Detective Relationship Specialty Start Date End Date Carol Gonzalez PA-C [address] [place] [address] PCP - General Family Medicine 09/06/17 Sheriff Detective Relationship Specialty Start Date End Date Carol Gonzalez PA-C [address] [place] [address] PCP - General Family Medicine 09/06/17 Team Status: Active Member Role Status Dates NOLAN Baldwin Family Provider Active NOLAN Baldwin Primary Care Provider Active Team Status: Inactive Member Role Status Dates NOLAN Baldwin Primary Care Provider Active Saleem Jiang MD Emergency Provider Active Sheriff Detective Relationship Specialty Start Date End Date Carol Gonzalez PA-C [address] [facility] [place] [address] PCP - General Family Medicine 09/06/17 Sheriff Detective Relationship Specialty Start Date End Date Carol Gonzalez PA-C [address] [facility] [place] [address] PCP - General Family Medicine 09/06/17 Sheriff Detective Relationship Specialty Start Date End Date Carol Gonzalez PA-C [address] [facility] [place] [address] PCP - General Family Medicine 09/06/17 Sheriff Detective Relationship Specialty Start Date End Date aCrol Gonzalez PA-C [address] [place] [address] PCP - General Family Medicine 09/06/17 Sheriff Detective Relationship Specialty Start Date End Date Ita Gonzalez PA-C PCP - General Family Medicine 09/06/17 Sheriff Detective Relationship Specialty Start Date End Date Ita Gonzalez PA-C PCP - General Family Medicine 09/06/17 Chaparrita Newman, HOME ENERGY CONSULTANT.BANQUET DIRECTOR [address] [place] [address] Wetlands Technician Family Medicine 03/03/24 Lilian Srivastava, HOME ENERGY CONSULTANT.BANQUET DIRECTOR [address] [place] [address] Wetlands Technician Family Medicine 03/03/24 Sheriff Detective Relationship Specialty Start Date End Date Ita Gonzalez PA-C PCP - General Family Medicine 09/06/17 Chaparrita Newman, HOME ENERGY CONSULTANT.BANQUET DIRECTOR [address] [facility] [place] [address] Wetlands Technician Family Medicine 03/03/24 Lilian Srivastava HOME ENERGY CONSULTANT.BANQUET DIRECTOR [address] [facility] [place] [address] Wetlands Technician Family Medicine 03/03/24 Sheriff Detective Relationship Specialty Start Date End Date Chaparrita Newman, HOME ENERGY CONSULTANT.BANQUET DIRECTOR [address] [place] [address] Wetlands Technician Family Medicine 03/03/24 Lilian Srivastava HOME ENERGY CONSULTANT.BANQUET DIRECTOR [address] [place] [address] Wetlands Technician Family Medicine 03/03/24 Sheriff Detective Relationship Specialty Start Date End Date Chaparrita Newman APRN.BANQUET DIRECTOR [address] [place] [address] Wetlands Technician Family Medicine 03/03/24 Lilian Srivastava, HOME ENERGY CONSULTANT.BANQUET DIRECTOR [address] [place] [address] Wetlands Technician Family Medicine 03/03/24 Sheriff Detective Relationship Specialty Start Date End Date Chaparrita Newman, HOME ENERGY CONSULTANT.BANQUET DIRECTOR [address] [place] [address] Wetlands Technician Family Medicine 03/03/24 Lilian Srivastava, HOME ENERGY CONSULTANT.BANQUET DIRECTOR [address] [place] [address] Wetlands Technician Family Medicine 03/03/24 Sheriff Detective Relationship Specialty Start Date End Date Lilian Srivastava, HOME ENERGY CONSULTANT.BANQUET DIRECTOR [address] [place] [address] PCP - General Family Medicine 07/11/24 Chaparrita Newman, HOME ENERGY CONSULTANT.BANQUET DIRECTOR [address] [place] [address] Wetlands Technician Family Medicine 03/03/24 Lilian Srivastava, HOME ENERGY CONSULTANT.BANQUET DIRECTOR [address] [place] [address] Wetlands Technician [facility] 03/03/24 Sheriff Detective Relationship Specialty Start Date End Date Lilian Srivastava HOME ENERGY CONSULTANT.BANQUET DIRECTOR [address] [facility] [place] [address] PCP - General Family Medicine 07/11/24 Chaparrita Newman, HOME ENERGY CONSULTANT.BANQUET DIRECTOR [address] [facility] [place] [address] Wetlands Technician Family [facility] [place] 03/03/24 Lilian Srivastava, HOME ENERGY CONSULTANT.BANQUET DIRECTOR [address] [facility] [place] [address] [facility] 03/03/24 Sheriff Detective Relationship Specialty Start Date End Date Lilian Srivastava, HOME ENERGY CONSULTANT.BANQUET DIRECTOR [address] [facility] [place] [address] PCP - General Family Medicine 07/11/24 Chaparrita Newman, HOME ENERGY CONSULTANT.BANQUET DIRECTOR [address] [facility] [place] [address] [facility] 03/03/24 Lilian Srivastava, HOME ENERGY CONSULTANT.BANQUET DIRECTOR [address] [facility] [place] [address] [facility] 03/03/24 Sheriff Detective Relationship Specialty Start Date End Date Lilian Srivastava HOME ENERGY CONSULTANT.BANQUET DIRECTOR [address] [facility] [place] [address] PCP - General Family Medicine 07/11/24 Chaparrita Newman, HOME ENERGY CONSULTANT.BANQUET DIRECTOR [address] [facility] [place] [address] Wetlands Technician Family Medicine 03/03/24 Lilian Srivastava, HOME ENERGY CONSULTANT.BANQUET DIRECTOR [address] [facility] [place] [address] Wetlands Technician Family Medicine 03/03/24 Sheriff Detective Relationship Specialty Start Date End Date Lilian Srivastava, HOME ENERGY CONSULTANT.BANQUET DIRECTOR [address] [facility] [place] [address] PCP - General Family Medicine 07/11/24 Chaparrita Newman, HOME ENERGY CONSULTANT.BANQUET DIRECTOR [address] [facility] [place] [address] Wetlands Technician Family Medicine 03/03/24 Lilian Srivastava, HOME ENERGY CONSULTANT.BANQUET DIRECTOR [address] [facility] [place] [address] [facility] 03/03/24 Sheriff Detective Relationship Specialty Start Date End Date Lilian Srivastava, HOME ENERGY CONSULTANT.BANQUET DIRECTOR [address] [facility] [place] [address] PCP - General Family Medicine 07/11/24 Chaparrita Newman, HOME ENERGY CONSULTANT.BANQUET DIRECTOR [address] [facility] [place] [address] Wetlands Technician Family Medicine 03/03/24 Lilian Srivastava, HOME ENERGY CONSULTANT.BANQUET DIRECTOR [address] [facility] [place] [address] Wetlands Technician Family Medicine 03/03/24 Sheriff Detective Relationship Specialty Start Date End Date Lilian Srivastava, HOME ENERGY CONSULTANT.BANQUET DIRECTOR [address] [facility] [place] [address] PCP - General Family Medicine 07/11/24 Chaparrita Newman, HOME ENERGY CONSULTANT.BANQUET DIRECTOR [address] [facility] [place], [place] [address] [phone] Wetlands Technician Family Medicine 03/03/24 Lilian Srivastava, HOME ENERGY CONSULTANT.BANQUET DIRECTOR [address] [facility] [place] [address] Wetlands Technician Family Medicine 03/03/24 Team Status: Active Member Role Status Dates NOLAN Baldwin Primary Care Provider Active Team Status: Inactive Member Role Status Dates NOLAN Baldwin Primary Care Provider Active Start: August 25, 2024 End: August 25, 2024 Dr. Jean Long MD Attending Provider Active Start: August 25, 2024 End: August 25, 2024 Dr. Jean Long MD Referring Provider Active Start: August 25, 2024 End: August 25, 2024 Sheriff Detective Relationship Specialty Start Date End Date Lilian Srivastava, HOME ENERGY CONSULTANT.BANQUET DIRECTOR [address] [facility] [place] [address] PCP - General Family Medicine 07/11/24 Chaparrita Newman, HOME ENERGY CONSULTANT.BANQUET DIRECTOR [address] [facility] [place] [address] Wetlands Technician Family Medicine 03/03/24 Lilian Srivastava, HOME ENERGY CONSULTANT.BANQUET DIRECTOR [address] [facility] [place] [address] Wetlands Technician Family Medicine 03/03/24 Sheriff Detective Relationship Specialty Start Date End Date Lilian Srivastava, HOME ENERGY CONSULTANT.BANQUET DIRECTOR [address] [facility] [place] [address] PCP - General Family Medicine 07/11/24 Chaparrita Newman APRN.BANQUET DIRECTOR [address] [place] [address] Counts Include [facility] 03/03/24 Lilian Srivastava APRN.BANQUET DIRECTOR [address] [place] [address] Counts Include [facility] 03/03/24 Goals (unrecognized section and content) Goals may be documented in a n alternate sectionGoals may be documented in an alternate sectionGoals may be documented in an alternate sectionGoals may be documented in an alternate sectionGoals may be documented in an alternate sectionGoals may be documented in an alternate section INFORMATION SOURCE (unrecogn ized section and content) DATE CREATED AUTHOR 08/30/2024 [facility] DATE CREATED AUTHOR AUTHOR'S ORGANIZ ATION 01/13/2025 [facility] FOR RECORDS PERTAINING TO PATIENTS WHO ARE [...] BE BASED ON THE PRIMARY CLINICAL RECORDS. [facility]. provides no warranty or guarantee of the accuracy or completeness of information in this document.
[2025-01-14] MEDS: 0.9% Normal Saline (1000mL) 1,000 ML 125 ML IV (09:05)
[2025-01-14 09:45] LABS: Hematocrit 42.3 % (37-47); Hemoglobin 13.7 g/dL (12.0-15.0); Immature Granulocytes Count 0.020 X10^3/uL (0.0-0.0); Mean Corp Hgb Conc 32.4 g/dL (32-36); Mean Corpuscular Volume 84.6 fL (81-99); Mean Platelet Vol. 11.2 fl (6.2-12.0); NRBC Flagged by Analyzer 0 % (0-5); Platelet Count 121 K/mm3 (150-450); RBC Distribution Width CV 13.7 % (11.6-14.6); RBC Distribution Width SD 41.9 fl (35.1-43.9); Red Blood Count 5.00 M/mm3 (4.2-5.4); White Blood Count 7.2 K/mm3 (4.4-11.0)
[2025-01-14 09:55] LABS: Anion Gap 13 (5-15); BUN 14 mg/dL (4-19); BUN/Creat Ratio 13.6 RATIO (10-20); Calcium,Total 9.5 mg/dL (7.6-11.0); Carbon Dioxide 21.0 mmol/L (21.0-32.0); Chloride 106 mmol/L (98-108); Estimated Creatinine Clearance 51.99 ml/min (50-250); Glucose 85 mg/dL (70-99); Potassium 4.0 mmol/L (3.3-5.1)
[2025-01-14 10:09] VITALS: BP 140/68; PULSE 84; RESP 16; O2SAT 99
--- NOTE | 2025-01-14 10:52 | ED.RN ---
pt angry about not being able to drive. pt reminded that this rn had that conversation prior to medication. pt states i'm driving anyway. security at bedside. pt calling for a ride
[2025-01-14 10:56] VITALS: BP 140/64; PULSE 88; RESP 16; TEMP 36.6; O2SAT 99
[2025-01-14 10:58] VITALS: BP 140/64; PULSE 88; RESP 16; TEMP 36.6; O2SAT 99
== END 2025-01-14 10:59 | disposition home or self-care (01) ==
PROVIDERS: Emergency Provider Emergency Medicine; PCP Clinical Nurse Specialist Adult Health; Visit Provider Emergency Medicine
DX: K57.32 Diverticulitis of large intestine without perforation or abscess without bleeding (principal); K21.9 Gastro-esophageal reflux disease without esophagitis; F17.290 Nicotine dependence, other tobacco product, uncomplicated; R10.9 Unspecified abdominal pain
CPT/HCPCS: 74177; 80048; 81001; 83605; 85025; 96361; 96374; 96375; 99283; Q9967; A4216; J2405

== ENCOUNTER 2025-01-24 11:36 | Emergency (ER) | payer MEDICAID, SELFPAY ==
[2025-01-24 11:36] VITALS: BP 158/94; PULSE 61; RESP 18; TEMP 36.4; O2SAT 99
[2025-01-24 11:39] VITALS: BMI 21.7
--- NOTE | 2025-01-24 12:35 | ED.VIS.GI ---
HPI HPI - GI History of Present Illness Chief Complaint: Abd Pain Informant: patient Narrative Narrative: Patient is a 64-year-old female presenting with right-sided abdominal pain that started this AM, several hrs ago. - Patient was evaluated in the ED on the (10 days ago) for left lower quadrant abdominal pain, diagnosed with diverticulitis, and prescribed antibiotics. - Pain initially began on the 17th or 18th, localized to the left lower quadrant. - Reports improvement in pain after 4-5 days of antibiotics but discontinued the medication early due to a planned trip. - This morning at 0700, patient awoke with new right-sided abdominal pain, initially started in periumbilical area; describes current pain as mild and crampy. - Denies nausea, emesis, or changes in appetite. - Reports constipation since discontinuing antibiotics, with last bowel movement 3 days ago; previously experienced diarrhea while on antibiotics. In past 3 days, hasn't had the need to go. - Denies dysuria; reports normal urinary function. - Abdominal surgical history includes cholecystectomy. [facility] Medical History Diverticulosis Kidney stones GERD (gastroesophageal reflux disease) Anxiety Depression Home Medications ?Medication ?Instructions ?Recorded ?Last Taken ?Type citalopram 20 mg tablet 40 mg PO DAILY depression 06/05/13 04/30/18 10:00 History Omeprazole [Prilosec] 40 mg PO BID gerd 09/26/14 04/30/18 10:00 History clonazepam 0.5 mg tablet (Klonopin) 0.25 mg PO PRN PRN Anxiety 09/06/17 04/30/18 22:00 History sulfamethoxazole 800 0.5 tab PO BID #20 TABLETS 06/22/22 Unknown Rx mg-trimethoprim 160 mg tablet ciprofloxacin HCl 500 mg tablet 500 mg PO BID #20 tabs 02/24/23 Unknown Rx (Cipro) metronidazole 500 mg tablet 500 mg PO TID #30 tabs 02/24/23 Unknown Rx cyclobenzaprine 10 mg tablet 10 mg PO TID PRN Muscle Spasm #20 09/02/23 Unknown Rx TABLETS ciprofloxacin HCl 500 mg tablet 500 mg PO BID #14 TABLETS 01/14/25 Unknown Rx hydrocodone-acetaminophen 5-325mg 1 tab PO Q4H PRN PRN Pain 2 days 01/14/25 Unknown Rx 5mg-325mg #10 TABLETS metronidazole 500 mg tablet 500 mg PO Q8H 7 days #21 tabs 01/14/25 Unknown Rx Allergy/AdvReac Type Severity Reaction Status Date / Time Egg Derived AdvReac Nausea/Vom/ Verified 01/24/25 11:39 Diarrhea prednisone AdvReac Other Verified 01/24/25 11:39 Surgical History History of cholecystectomy Social History household members: none Smoking Status: Current every day smoker tobacco type: e-cigarettes substance use type: does not use ROS ROS ED Constitutional Constitutional ED: Denies chills or fever(s) Eyes Eyes: Denies change in vision or diplopia ENT ENT ED: Denies rhinorrhea or sore throat Cardiovascular Cardiovascular: Denies chest pain or palpitations Respiratory/Chest Respiratory/Chest: Denies cough or dyspnea Gastrointestinal Gastrointestinal: Reports abdominal pain; Denies diarrhea, nausea or vomiting Genitourinary Genitourinary ED: Denies dysuria or hematuria Musculoskeletal Musculoskeletal: Denies back pain or neck pain Integumentary Denies abscess or rash Neurologic Neurologic: Denies headache(s), paresthesias or weakness Psychiatric Psychiatric: Denies suicidal thoughts EXAM Physical Exam Const Vital Signs: 01/24/25 11:36 01/24/25 13:36 01/24/25 15:00 Temperature 97.5 F L Temperature Source Oral Pulse Rate 61 76 80 Respiratory Rate 18 14 16 Blood Pressure 158/94 H 142/88 H 144/66 H Blood Pressure Mean 115 106 92 Pulse Ox 99 99 99 Oxygen Delivery Method Room Air Room Air Positive well nourished and well developed General Appearance ED: well developed and NAD HEENT Reports moist mucous membranes normocephalic and atraumatic Eyes PERRL and EOMs intact bilaterally Neck full ROM and supple Resp normal respiratory effort and clear to auscultation bilaterally Cardio regular rate, regular rhythm and no murmurs GI non-distended GI Narrative: Will tender without guarding or rebound at McBurney's point. Negative Rovsing. Positive obturator. Negative psoas. Soft and nondistended with normal bowel sounds. Auscultation: normoactive bowel sounds Palpation: soft Back/Spine no CVA tenderness General Back: other FROM Extremity normal to inspection General Extremety ED: Negative for edema, pulses abnormal or tenderness General Extremity: Negative for edema or pulses abnormal Neuro oriented x3, CN's II-XII intact bilaterally and no sensory deficits noted Sensorium / Orientation: awake and alert Motor Exam: strength 5/5 throughout Skin no rashes or lesions noted and no wounds MDM MDM MDM Narrative Medical decision making narrative: Assessment: The patient is a 64-year-old female with PMH of recent diverticulitis presenting for new right lower quadrant abdominal pain beginning this morning. CT abdomen/pelvis with IV contrast shows a normal appendix, diverticulosis without diverticulitis, and no acute intra-abdominal pathology. Labs reveal WBC 5.6 without left shift and normal electrolytes, arguing against infection or inflammatory process. Given the normal imaging and laboratory evaluation, serious causes such as appendicitis are ruled out; pain has completely resolved on re-evaluation. Plan: - Administered IV fluids in ED. - Provided bowel regimen guidance: may use Miralax or Fleet enema if constipation recurs. - Educated on return precautions and advised to return for worsening pain, fever, or inability to pass stool. - Discharged home in stable condition; patient comfortable with plan. Diagnostics: - Labs: WBC 5.6 K/?L with no left shift; electrolytes and renal function normal. - CT abdomen/pelvis with IV contrast: no acute abnormality; normal appendix; diverticulosis without evidence of diverticulitis. Reevaluations: - Pain resolved after fluids; abdomen non-tender; patient reports comfort and readiness for discharge. Lab Data Attestation: I reviewed the patient's lab results. Labs: Laboratory Results - last 24 hr 01/24/25 12:49 WBC 5.6 RBC 5.14 Hgb 14.2 Hct 43.4 MCV 84.4 MCH 27.6 MCHC 32.7 RDW Std Deviation 42.3 RDW Coeff of Rinku 13.6 Plt Count 186 MPV 11.0 Immature Gran % (Auto) 0.400 Neut % (Auto) 66.2 Lymph % (Auto) 25.4 Alpine % (Auto) 6.4 Eos % (Auto) 1.2 Baso % (Auto) 0.4 Absolute Neuts (auto) 3.7 Absolute Lymphs (auto) 1.43 Nucleated RBC % 0 Sodium 143 Potassium 3.8 Chloride 109 H Carbon Dioxide 24.5 Anion Gap 9 BUN 9 Creatinine 0.89 Estim Creat Clear Calc 58.99 Est GFR (MDRD) Non-Af 72 BUN/Creatinine Ratio 9.9 L Glucose 85 Calcium 9.4 Urine Color Yellow Urine Clarity Sl. Cloudy Urine pH 6.5 Ur Specific Calvin 1.005 Urine Protein 15 H Urine Glucose (UA) Normal Urine Ketones Negative Urine Occult Blood Negative Urine Nitrite Negative Urine Bilirubin Negative Urine Urobilinogen Normal Ur Leukocyte Esterase 100 H Urine RBC 0 SEEN Urine WBC 5-10 SEEN Ur Squamous Epith Cells 5-10 SEEN Urine Bacteria 0 SEEN Urine Mucus 0 SEEN Radiography Diagnostic Testing: Clinical Impression(s) from Imaging Studies Abdomen/Pelvis CT 01/24/25 13:10 IMPRESSION: Large hiatal hernia. Stable intrahepatic biliary ductal dilatation most likely secondary to prior cholecystectomy. Sigmoid diverticulosis without evidence of diverticulitis at this time. Stable atrophy of the left kidney. Reading Location: [id number] Discharge Plan Triage Chief Complaint: Abd Pain ED Provider: Arjun Rivas Dx/Rx/DC Orders Clinical Impression: Right lower quadrant abdominal pain, Diverticulosis of colon without diverticulitis Instructions: Abdominal Pain Prescriptions: No Action citalopram 20 MG tablet 40 mg PO DAILY Patient Comments: depression Omeprazole [Prilosec] 40 MG capsule 40 mg PO BID Patient Comments: HEART BURN clonazepam [Klonopin] 0.5 MG tablet 0.25 mg PO PRN PRN (Reason: Anxiety) sulfamethoxazole-trimethoprim [sulfamethoxazole-trimethoprim] 800-160 mg tablet 0.5 tab PO BID Qty: 20 0RF metronidazole 500 mg tablet 500 mg PO TID Qty: 30 0RF ciprofloxacin HCl [Cipro] 500 mg tablet 500 mg PO BID Qty: 20 0RF cyclobenzaprine 10 mg tablet 10 mg PO TID PRN (Reason: Muscle Spasm) Qty: 20 0RF hydrocodone-acetaminophen 5-325 mg tablet 1 tab PO Q4H PRN PRN (Reason: Pain) 2 Days Qty: 10 0RF ciprofloxacin HCl 500 mg tablet 500 mg PO BID Qty: 14 0RF metronidazole 500 mg tablet 500 mg PO Q8H 7 Days Qty: 21 0RF Primary Care Provider: Lilian Thorne Referrals: Lilian Thorne, FEATHER DRYING MACHINE OPERATOR [Primary Care Provider, [facility]] Activity Restrictions/Additional Instructions: - Your CT scan of the abdomen and pelvis with IV contrast showed no acute abnormalities: the appendix appears normal, and you have diverticulosis without active diverticulitis. - Blood tests showed a normal white blood cell count (5.6) and normal electrolytes and kidney function. - You received IV fluids during this visit. - If you become constipated, you may take Miralax as directed or use a Fleet?s enema at home. - You can discard the antibiotics that you did not finish. - Return for re-evaluation or go to the emergency department if your abdominal pain returns or worsens, or if you develop fever, vomiting, or other concerning symptoms. Print Language: Arabic Disposition Disposition: Home, Self Care
[2025-01-24 12:53] LABS: Mucous, Urine 0 SEEN /hpf (<or=2+); Red Blood Cells-Urine 0 SEEN /hpf (0-5)
[2025-01-24 12:57] LABS: Color, Urine Yellow (Yellow); Glucose, Dipstick Normal (Normal); Hematocrit 43.4 % (37-47); Hemoglobin 14.2 g/dL (12.0-15.0); Immature Granulocytes Count 0.020 X10^3/uL (0.0-0.0); Ketone-Dipstick Negative (Negative); Leukocyte Esterase-Dipstick 100 /ul (Negative); Mean Corp Hgb Conc 32.7 g/dL (32-36); Mean Corpuscular Volume 84.4 fL (81-99); Mean Platelet Vol. 11.0 fl (6.2-12.0); NRBC Flagged by Analyzer 0 % (0-5); Nitrite-Dipstick Negative (Negative); Occult Blood-Urine Negative /ul (Negative); Platelet Count 186 K/mm3 (150-450); Protein-Dipstick 15 mg/dl (Negative); RBC Distribution Width CV 13.6 % (11.6-14.6); RBC Distribution Width SD 42.3 fl (35.1-43.9); Red Blood Count 5.14 M/mm3 (4.2-5.4); Specific Gravity, Urine 1.005 (1.002-1.030); Urine Bilirubin Dipstick Negative (Negative); White Blood Count 5.6 K/mm3 (4.4-11.0)
[2025-01-24 13:03] LABS: Squamous Epithelial Cells - UA 5-10 SEEN /hpf (5-10)
[2025-01-24] MEDS: 0.9% Normal Saline (1000mL) 1,000 ML 125 ML IV (13:10)
--- NOTE | 2025-01-24 13:10 | CT_ITS ---
PROCEDURE: CT/Abdomen/Pelvis W IV Cont ONLY
[2025-01-24 13:29] LABS: Anion Gap 9 (5-15); BUN 9 mg/dL (4-19); BUN/Creat Ratio 9.9 RATIO (10-20); Calcium,Total 9.4 mg/dL (7.6-11.0); Carbon Dioxide 24.5 mmol/L (21.0-32.0); Chloride 109 mmol/L (98-108); Estimated Creatinine Clearance 58.99 ml/min (50-250); Glucose 85 mg/dL (70-99); Potassium 3.8 mmol/L (3.3-5.1)
[2025-01-24 13:36] VITALS: BP 142/88; PULSE 76; RESP 14; O2SAT 99
--- NOTE | 2025-01-24 14:47 | EKG12_ITS ---
Test Reason : CP
[2025-01-24 15:00] VITALS: BP 144/66; PULSE 80; RESP 16; O2SAT 99
[2025-01-24 15:21] VITALS: BP 144/86; PULSE 85; RESP 16; TEMP 37; O2SAT 99
== END 2025-01-24 15:22 | disposition home or self-care (01) ==
PROVIDERS: Emergency Provider Emergency Medicine; PCP Clinical Nurse Specialist Adult Health; Visit Provider Emergency Medicine
DX: R10.31 Right lower quadrant pain (principal); K57.30 Diverticulosis of large intestine without perforation or abscess without bleeding; K21.9 Gastro-esophageal reflux disease without esophagitis; F17.290 Nicotine dependence, other tobacco product, uncomplicated
CPT/HCPCS: 74177; 80048; 81001; 85025; 93005; 96360; 96361; 99283; Q9967; A4216